=== PATIENT | male | born 1990 | race Caucasian/White ===

== ENCOUNTER 2018-06-10 21:00 | Emergency (ER) | payer OTHER ==
[2018-06-10 21:05] VITALS: RESP 18
[2018-06-10] MEDS ORDERED: SODIUM CHLORIDE 0.9% 1,000 ML IV STA (21:16)
--- NOTE | 2018-06-10 21:20 | ED ---
Nausea/Vomiting/Diarrhea HPI - General Source: patient, RN notes reviewed Mode of arrival: ambulatory Limitations: no limitations <Dave Cedillo - Last Filed: 06/11/18 01:11> <Yuli Dunham - Last Filed: 06/14/18 23:58> - General Chief complaint: Nausea/Vomiting/Diarrhea Stated complaint: Vomiting Time Seen by Provider: 06/10/18 21:06 - History of Present Illness Initial comments: 27 year male present emergency department to complaint of nausea vomiting. Patient states is at work states his outside outbreak smoking when he had 2 episodes of emesis. Patient states symptoms have resolved this time. He states he became very shaky after the emesis. Patient states that he has no abdominal pain no diarrhea denies any recent fevers or chills. No sick contacts. Symptoms. He does have a history of hypertension states he does not know the name of the medication though he states he took it today. (Dave Cedillo) - Related Data Home Medications Medication Instructions Recorded Confirmed Lisinopril [Zestril] 10 mg PO DAILY 06/10/18 06/10/18 Allergies Allergy/AdvReac Type Severity Reaction Status Date / Time No Known Allergies Allergy Verified 06/10/18 21:29 Review of Systems ROS Other: All systems not noted in ROS Statement are negative. <Dave Cedillo - Last Filed: 06/11/18 01:11> ROS Other: All systems not noted in ROS Statement are negative. <Yuli Dunham - Last Filed: 06/14/18 23:58> ROS Statement: Those systems with pertinent positive or pertinent negative responses have been documented in the HPI. Past Medical History Past Medical History: Hypertension History of Any Multi-Drug Resistant Organisms: None Reported Past Surgical History: Tonsillectomy Past Psychological History: No Psychological Hx Reported Smoking Status: Current every day smoker Past Alcohol Use History: Occasional Past Drug Use History: Marijuana <Dave Cedillo - Last Filed: 06/11/18 01:11> General Exam Limitations: no limitations General appearance: alert, in no apparent distress Head exam: Present: atraumatic, normocephalic, normal inspection Eye exam: Present: normal appearance, PERRL, EOMI. Absent: scleral icterus, conjunctival injection, periorbital swelling ENT exam: Present: normal exam, normal oropharynx, mucous membranes moist Neck exam: Present: normal inspection, full ROM. Absent: tenderness, meningismus, lymphadenopathy Respiratory exam: Present: normal lung sounds bilaterally. Absent: respiratory distress, wheezes, rales, rhonchi, stridor Cardiovascular Exam: Present: regular rate, normal rhythm, normal heart sounds. Absent: systolic murmur, diastolic murmur, rubs, gallop, clicks GI/Abdominal exam: Present: soft, normal bowel sounds. Absent: distended, tenderness, guarding, rebound, rigid Neurological exam: Present: alert, oriented X3, CN II-XII intact Skin exam: Present: warm, dry, intact, normal color. Absent: rash <Dave Cedillo - Last Filed: 06/11/18 01:11> Vital Signs 06/10/18 06/11/18 21:02 01:22 Temperature 98.2 F 98.6 F Pulse Rate 97 80 Respiratory 18 18 Rate Blood Pressure 197/112 175/112 O2 Sat by Pulse 100 98 Oximetry Medical Decision Making - Lab Data Result diagrams: 06/10/18 21:28 06/10/18 21:28 <Dave Cedillo - Last Filed: 06/11/18 01:11> - Lab Data Result diagrams: 06/10/18 21:28 06/10/18 21:28 <Yuli Dunham - Last Filed: 06/14/18 23:58> - Medical Decision Making 27-year-old male presented for nausea vomiting. Patient's found to have elevated LFTs. Patient did have ultrasound at that time which was negative for acute abnormality. I did question the patient I'll call intake. Patient states he has been told is had elevated liver functions in the past related to alcohol abuse. Patient will be discharged at this time with antiemetics. Return parameters were discussed. (Dave Cedillo) I was available for consultation in the emergency department. The history and physical exam were done by the midlevel provider. I was consulted for this patient's care. I reviewed the case with the midlevel provider and based on their presentation of the patient, I agree with the assessment, medical decision making and plan of care as documented. (Yuli Dunham) - Lab Data Lab Results 06/10/18 06/10/18 06/10/18 Range/Units 21:28 21:28 22:55 WBC 7.6 (3.8-10.6) k/uL RBC 4.98 (4.30-5.90) m/uL Hgb 16.8 (13.0-17.5) gm/dL Hct 50.0 (39.0-53.0) % MCV 100.3 H (80.0-100.0) fL MCH 33.7 (25.0-35.0) pg MCHC 33.6 (31.0-37.0) g/dL RDW 12.1 (11.5-15.5) % Plt Count 271 (150-450) k/uL Neutrophils % 72 % Lymphocytes % 19 % Monocytes % 5 % Eosinophils % 2 % Basophils % 0 % Neutrophils # 5.5 (1.3-7.7) k/uL Lymphocytes # 1.4 (1.0-4.8) k/uL Monocytes # 0.4 (0-1.0) k/uL Eosinophils # 0.2 (0-0.7) k/uL Basophils # 0.0 (0-0.2) k/uL Sodium 140 (137-145) mmol/L Potassium 4.0 (3.5-5.1) mmol/L Chloride 101 (98-107) mmol/L Carbon Dioxide 28 (22-30) mmol/L Anion Gap 11 mmol/L BUN 12 (9-20) mg/dL Creatinine 0.70 (0.66-1.25) mg/dL Est GFR (CKD-EPI)AfAm >90 (>60 ml/min/1.73 sqM) Est GFR (CKD-EPI)NonAf >90 (>60 ml/min/1.73 sqM) Glucose 104 H (74-99) mg/dL Calcium 9.9 (8.4-10.2) mg/dL Total Bilirubin 0.3 (0.2-1.3) mg/dL AST 120 H (17-59) U/L ALT 183 H (21-72) U/L Alkaline Phosphatase 75 (38-126) U/L Total Protein 8.3 H (6.3-8.2) g/dL Albumin 5.0 (3.5-5.0) g/dL Lipase 106 (23-300) U/L Urine Color Light Yellow Urine Appearance Clear (Clear) Urine pH 8.0 (5.0-8.0) Ur Specific [place] 1.011 (1.001-1.035) Urine Protein Negative (Negative) Urine Glucose (UA) 1+ H (Negative) Urine Ketones Negative (Negative) Urine Blood Negative (Negative) Urine Nitrite Negative (Negative) Urine Bilirubin Negative (Negative) Urine Urobilinogen <2.0 (<2.0) mg/dL Ur Leukocyte Esterase Negative (Negative) Disposition Is patient prescribed a controlled substance at d/c from ED?: No Time of Disposition: 01:13 <Dave Cedillo - Last Filed: 06/11/18 01:11> <Yuli Dunham - Last Filed: 06/14/18 23:58> Clinical Impression: Nausea & vomiting, Alcoholic hepatitis Disposition: HOME SELF-CARE Condition: Stable Instructions: Acute Nausea and Vomiting (ED) Additional Instructions: Please return to the Emergency Department if symptoms worsen or any other concerns. Referrals: None,Stated [Primary Care Provider] - 1-2 days
[2018-06-10 21:52] LABS: Basophils % (A) 0 %; Eosinophils # (A) 0.2 k/uL (0-0.7); Eosinophils % (A) 2 %; HGB 16.8 gm/dL (13.0-17.5); Lymphocytes # (A) 1.4 k/uL (1.0-4.8); Lymphocytes % (A) 19 %; MCH 33.7 pg (25.0-35.0); MCHC 33.6 g/dL (31.0-37.0); MCV 100.3 fL (80.0-100.0); Mean Platelet Volume 6.7; Monocytes # (A) 0.4 k/uL (0-1.0); Monocytes % (A) 5 %; Neutrophils # (A) 5.5 k/uL (1.3-7.7); Neutrophils % (A) 72 %; Platelet Count 271 k/uL (150-450); RBC 4.98 m/uL (4.30-5.90); RDW 12.1 % (11.5-15.5); WBC 7.6 k/uL (3.8-10.6)
[2018-06-10 22:09] LABS: ALT 183 U/L (21-72); AST 120 U/L (17-59); Alkaline Phosphatase 75 U/L (38-126); Anion Gap 11 mmol/L; Blood Urea Nitrogen 12 mg/dL (9-20); Calcium 9.9 mg/dL (8.4-10.2); Carbon Dioxide 28 mmol/L (22-30); Chloride 101 mmol/L (98-107); Glucose 104 mg/dL (74-99); Lipase 106 U/L (23-300); Sodium 140 mmol/L (137-145); Total Bilirubin 0.3 mg/dL (0.2-1.3); Total Protein 8.3 g/dL (6.3-8.2)
[2018-06-10 23:19] LABS: Appearance,Urine Clear (Clear); Bilirubin,Urine Negative (Negative); Blood,Urine Negative (Negative); Color,Urine Light Yellow; Glucose,Urine (UA) 1+ (Negative); Ketones,Urine Negative (Negative); Leukocyte Esterase,Urine Negative (Negative); Nitrite,Urine Negative (Negative); Protein,Urine Negative (Negative); Specific Gravity,Urine 1.011 (1.001-1.035); Urobilinogen,Urine <2.0 mg/dL (<2.0)
--- NOTE | 2018-06-11 01:07 | US ---
EXAMINATION TYPE: US gallbladder DATE OF EXAM: 06/11/2018 COMPARISON: CT 2014 CLINICAL HISTORY: Pain. N/V and dizziness x 1 day EXAM MEASUREMENTS: Liver Length: 16.8 cm Gallbladder Wall: 0.2 cm CBD: 0.4 cm Right Kidney: 9.6 x 4.5 x 4.8 cm Pancreas: visualized portions wnl, limited by overlying midline bowel gas Liver: mildly heterogeneous, increased echogenicity Gallbladder: wnl Evidence for sonographic Johnston's sign: no CBD: wnl Right Kidney: 0.5cm echogenic focus inferior pole IMPRESSION: Negative exam. No gallstones or dilated ducts. No free fluid. Possible nonobstructing vargas culus lower pole of the right kidney.
[2018-06-11] MEDS ORDERED: ONDANSETRON 4 MG ODT STARTER PACK 2 TAB BTL PO STA (01:13)
[2018-06-11 01:25] VITALS: PULSE 80; TEMP 98.6
[2018-06-11 01:26] VITALS: BP 175/112
== END 2018-06-11 01:50 | disposition home or self-care (01) ==
LOC: EC 21:00
DX: K70.10 Alcoholic hepatitis without ascites (principal); F10.10 Alcohol abuse, uncomplicated; I10 Essential (primary) hypertension; F17.200 Nicotine dependence, unspecified, uncomplicated; Z79.899 Other long term (current) drug therapy
CPT/HCPCS: 36415; 80053; 83690; 85025; 81003; 76705; 99284; 96360; S0119

== ENCOUNTER 2018-08-27 23:10 | Emergency (ER) | payer OTHER ==
[2018-08-27 23:25] VITALS: RESP 18
[2018-08-28 00:12] LABS: Basophils % (A) 0 %; Eosinophils # (A) 0.1 k/uL (0-0.7); Eosinophils % (A) 1 %; HCT 49.4 % (39.0-53.0); HGB 17.1 gm/dL (13.0-17.5); Lymphocytes # (A) 2.2 k/uL (1.0-4.8); Lymphocytes % (A) 23 %; MCH 34.8 pg (25.0-35.0); MCHC 34.6 g/dL (31.0-37.0); MCV 100.7 fL (80.0-100.0); Monocytes # (A) 0.7 k/uL (0-1.0); Monocytes % (A) 8 %; Neutrophils # (A) 6.3 k/uL (1.3-7.7); Neutrophils % (A) 66 %; Platelet Count 331 k/uL (150-450); RBC 4.91 m/uL (4.30-5.90); RDW 13.1 % (11.5-15.5); WBC 9.5 k/uL (3.8-10.6)
[2018-08-28 00:20] LABS: INR 1.4 (<1.2); Prothrombin Time 14.5 sec (9.0-12.0)
[2018-08-28 00:23] LABS: ALT 135 U/L (21-72); AST 184 U/L (17-59); Albumin 4.6 g/dL (3.5-5.0); Alkaline Phosphatase 126 U/L (38-126); Amylase 49 U/L (30-110); Anion Gap 12 mmol/L; Blood Urea Nitrogen 14 mg/dL (9-20); Calcium 9.8 mg/dL (8.4-10.2); Carbon Dioxide 30 mmol/L (22-30); Chloride 95 mmol/L (98-107); Glucose 98 mg/dL (74-99); Lipase 120 U/L (23-300); Potassium 3.8 mmol/L (3.5-5.1); Sodium 137 mmol/L (137-145); Total Bilirubin 1.4 mg/dL (0.2-1.3); Total Protein 7.8 g/dL (6.3-8.2)
[2018-08-28] MEDS ORDERED: LORazepam 2 MG/ML INJ IV STA (00:40)
[2018-08-28] MEDS ORDERED: chlordiazePOXIDE 25 MG CAP PO STA (00:41)
--- NOTE | 2018-08-28 00:55 | ED ---
GI Bleed HPI - General Chief complaint: GI Bleed Stated complaint: Vomiting blood Time Seen by Provider: 08/27/18 23:57 Source: patient Mode of arrival: ambulatory Limitations: no limitations - History of Present Illness Initial comments: This patient is 27-year-old man who presents to be evaluated for blood tinged vomiting. The patient states that he drinks a fair amount of alcohol and believes that he had some vomiting related to that. She states that he was at work about 3-4 hours ago. He admits to vomiting with a trace of blood. This was followed a little later by vomiting with a number small blood clots. Patient is denying abdomen or chest pain no dyspnea or diaphoresis. In addition, the patient states that he probably should be taking something for his blood pressure. He states that his doctor was going to change medications but dakotah sanchez did not get any prescription to inform yet. He denies symptoms related to this. MD complaint: coffee ground emesis Onset/Timin -: hour(s) Quality: painless Consistency: constant Improves with: none Worsens with: none Context: alcohol abuse - Related Data Home Medications Medication Instructions Recorded Confirmed Lisinopril [Zestril] 10 mg PO DAILY 06/10/18 06/10/18 Previous Rx's Medication Instructions Recorded Famotidine [Pepcid] 20 mg PO BID #14 tablet 08/28/18 chlordiazePOXIDE HCl [Librium] 25 mg PO TID 3 Days #9 capsule 08/28/18 Allergies Allergy/AdvReac Type Severity Reaction Status Date / Time No Known Allergies Allergy Verified 08/27/18 23:25 Review of Systems ROS Statement: Those systems with pertinent positive or pertinent negative responses have been documented in the HPI. ROS Other: All systems not noted in ROS Statement are negative. Constitutional: Denies: fever, chills, weakness Respiratory: Denies: cough, dyspnea, wheezes Cardiovascular: Denies: chest pain, palpitations, edema, syncope Gastrointestinal: Reports: nausea, vomiting, hematemesis. Denies: abdominal pain, diarrhea, melena, hematochezia Genitourinary: Denies: dysuria, hematuria Musculoskeletal: Denies: back pain Skin: Denies: rash Neurological: Denies: headache, weakness, numbness Past Medical History Past Medical History: Hypertension History of Any Multi-Drug Resistant Organisms: None Reported Past Surgical History: Tonsillectomy Past Psychological History: No Psychological Hx Reported Smoking Status: Current every day smoker Past Alcohol Use History: Occasional Past Drug Use History: Marijuana General Exam Limitations: no limitations General appearance: alert, in no apparent distress Head exam: Present: atraumatic, normocephalic ENT exam: Present: mucous membranes dry Respiratory exam: Present: normal lung sounds bilaterally. Absent: respiratory distress, wheezes, rales, rhonchi, stridor Cardiovascular Exam: Present: regular rate, normal rhythm, normal heart sounds. Absent: systolic murmur, diastolic murmur, rubs, gallop GI/Abdominal exam: Present: soft. Absent: distended, tenderness, guarding, rebound, rigid, mass Extremities exam: Present: normal inspection, normal capillary refill. Absent: pedal edema, calf tenderness Back exam: Present: normal inspection. Absent: CVA tenderness (R), CVA tenderness (L) Neurological exam: Present: alert Skin exam: Present: warm, dry, intact, normal color. Absent: rash Course Vital Signs 08/27/18 23:22 Temperature 98.8 F Pulse Rate 99 Respiratory 18 Rate Blood Pressure 181/121 O2 Sat by Pulse 99 Oximetry Medical Decision Making - Lab Data Result diagrams: 08/27/18 00:03 08/27/18 00:03 Lab Results 08/27/18 08/27/18 08/27/18 Range/Units 00:03 00:03 00:03 WBC 9.5 (3.8-10.6) k/uL RBC 4.91 (4.30-5.90) m/uL Hgb 17.1 (13.0-17.5) gm/dL Hct 49.4 (39.0-53.0) % MCV 100.7 H (80.0-100.0) fL MCH 34.8 (25.0-35.0) pg MCHC 34.6 (31.0-37.0) g/dL RDW 13.1 (11.5-15.5) % Plt Count 331 (150-450) k/uL Neutrophils % 66 % Lymphocytes % 23 % Monocytes % 8 % Eosinophils % 1 % Basophils % 0 % Neutrophils # 6.3 (1.3-7.7) k/uL Lymphocytes # 2.2 (1.0-4.8) k/uL Monocytes # 0.7 (0-1.0) k/uL Eosinophils # 0.1 (0-0.7) k/uL Basophils # 0.0 (0-0.2) k/uL PT (9.0-12.0) sec INR (<1.2) APTT (22.0-30.0) sec Sodium 137 (137-145) mmol/L Potassium 3.8 (3.5-5.1) mmol/L Chloride 95 L (98-107) mmol/L Carbon Dioxide 30 (22-30) mmol/L Anion Gap 12 mmol/L BUN 14 (9-20) mg/dL Creatinine 0.84 (0.66-1.25) mg/dL Est GFR (CKD-EPI)AfAm >90 (>60 ml/min/1.73 sqM) Est GFR (CKD-EPI)NonAf >90 (>60 ml/min/1.73 sqM) Glucose 98 (74-99) mg/dL Plasma Lactic Acid Raul 1.4 (0.7-2.0) mmol/L Calcium 9.8 (8.4-10.2) mg/dL Total Bilirubin 1.4 H (0.2-1.3) mg/dL AST 184 H (17-59) U/L ALT 135 H (21-72) U/L Alkaline Phosphatase 126 (38-126) U/L Troponin I (0.000-0.034) ng/mL Total Protein 7.8 (6.3-8.2) g/dL Albumin 4.6 (3.5-5.0) g/dL Amylase 49 (30-110) U/L Lipase 120 (23-300) U/L 08/27/18 08/27/18 Range/Units 00:03 00:03 WBC (3.8-10.6) k/uL RBC (4.30-5.90) m/uL Hgb (13.0-17.5) gm/dL Hct (39.0-53.0) % MCV (80.0-100.0) fL MCH (25.0-35.0) pg MCHC (31.0-37.0) g/dL RDW (11.5-15.5) % Plt Count (150-450) k/uL Neutrophils % % Lymphocytes % % Monocytes % % Eosinophils % % Basophils % % Neutrophils # (1.3-7.7) k/uL Lymphocytes # (1.0-4.8) k/uL Monocytes # (0-1.0) k/uL Eosinophils # (0-0.7) k/uL Basophils # (0-0.2) k/uL PT 14.5 H (9.0-12.0) sec INR 1.4 H (<1.2) APTT 30.0 (22.0-30.0) sec Sodium (137-145) mmol/L Potassium (3.5-5.1) mmol/L Chloride (98-107) mmol/L Carbon Dioxide (22-30) mmol/L Anion Gap mmol/L BUN (9-20) mg/dL Creatinine (0.66-1.25) mg/dL Est GFR (CKD-EPI)AfAm (>60 ml/min/1.73 sqM) Est GFR (CKD-EPI)NonAf (>60 ml/min/1.73 sqM) Glucose (74-99) mg/dL Plasma Lactic Acid Raul (0.7-2.0) mmol/L Calcium (8.4-10.2) mg/dL Total Bilirubin (0.2-1.3) mg/dL AST (17-59) U/L ALT (21-72) U/L Alkaline Phosphatase (38-126) U/L Troponin I <0.012 (0.000-0.034) ng/mL Total Protein (6.3-8.2) g/dL Albumin (3.5-5.0) g/dL Amylase (30-110) U/L Lipase (23-300) U/L Disposition Clinical Impression: Gastritis Disposition: HOME SELF-CARE Condition: Fair Instructions (If sedation given, give patient instructions): Gastrointestinal Bleeding (ED) Prescriptions: chlordiazePOXIDE HCl [Librium] 25 mg PO TID 3 Days #9 capsule Famotidine [Pepcid] 20 mg PO BID #14 tablet Is patient prescribed a controlled substance at d/c from ED?: No Referrals: Carlos Silva MD [Primary Care Provider] - 1-2 days
[2018-08-28] MEDS ORDERED: SODIUM CHLORIDE 0.9% 1,000 ML IV ONE (01:06)
[2018-08-28] MEDS: SODIUM CHLORIDE 0.9% 1,000 ML IV ONE ×2 (01:17→01:18)
[2018-08-28 01:59] VITALS: BP 191/118; PULSE 85
[2018-08-28] MEDS ORDERED: LORazepam 1 MG TAB PO STA (02:02)
[2018-08-28 02:15] VITALS: TEMP 98.3
== END 2018-08-28 02:12 | disposition home or self-care (01) ==
LOC: EC 23:10
DX: K29.70 Gastritis, unspecified, without bleeding (principal); I10 Essential (primary) hypertension; F17.200 Nicotine dependence, unspecified, uncomplicated; Z79.899 Other long term (current) drug therapy
CPT/HCPCS: 36415; 80053; 82150; 83605; 83690; 84484; 85025; 85610; 85730; 96360; 99284

== ENCOUNTER 2018-10-12 14:42 | Inpatient (IN) | payer OTHER ==
[2018-10-12] MEDS ORDERED: SODIUM CHLORIDE 0.9% 2,000 ML IV STA (14:57)
[2018-10-12] MEDS ORDERED: ONDANSETRON 4 MG/2 ML VIAL IVP STA (14:57)
[2018-10-12] MEDS ORDERED: FAMOTIDINE 20 MG/2 ML VIAL IV STA (14:58)
--- NOTE | 2018-10-12 15:11 | ED ---
Nausea/Vomiting/Diarrhea HPI - General Chief complaint: Nausea/Vomiting/Diarrhea Stated complaint: Vomiting Time Seen by Provider: 10/12/18 14:55 Source: patient, RN notes reviewed Mode of arrival: ambulatory Limitations: no limitations - History of Present Illness Initial comments: 28-year-old male presents emergency Department with chief complaint of nausea vomiting over the last 2 days. Patient states she's had his issues in the past and has been diagnosed with early ulcers. Patient does not take any current and antacids. Patient denies any fevers or chills. Denies any dysuria hematuria diarrhea constipation no melena or hematochezia. Patient states that he that he tasted blood states that a come emergency department. - Related Data Home Medications Medication Instructions Recorded Confirmed Lisinopril [Zestril] 10 mg PO DAILY 06/10/18 10/12/18 Allergies Allergy/AdvReac Type Severity Reaction Status Date / Time No Known Allergies Allergy Verified 10/12/18 14:58 Review of Systems ROS Statement: Those systems with pertinent positive or pertinent negative responses have been documented in the HPI. ROS Other: All systems not noted in ROS Statement are negative. Past Medical History Past Medical History: No Reported History, Hypertension History of Any Multi-Drug Resistant Organisms: None Reported Past Surgical History: Tonsillectomy Past Psychological History: No Psychological Hx Reported Smoking Status: Current every day smoker Past Alcohol Use History: Occasional Past Drug Use History: Marijuana General Exam Limitations: no limitations General appearance: alert, in no apparent distress Head exam: Present: atraumatic, normocephalic, normal inspection Eye exam: Present: normal appearance, PERRL, EOMI. Absent: scleral icterus, conjunctival injection, periorbital swelling ENT exam: Present: normal exam, mucous membranes moist Neck exam: Present: normal inspection, full ROM. Absent: tenderness, meningismus, lymphadenopathy Respiratory exam: Present: normal lung sounds bilaterally. Absent: respiratory distress, wheezes, rales, rhonchi, stridor Cardiovascular Exam: Present: regular rate, normal rhythm, normal heart sounds. Absent: systolic murmur, diastolic murmur, rubs, gallop, clicks GI/Abdominal exam: Present: soft, normal bowel sounds. Absent: distended, tenderness, guarding, rebound, rigid Back exam: Absent: CVA tenderness (R), CVA tenderness (L) Skin exam: Present: warm, dry, intact, normal color. Absent: rash Course Vital Signs 10/12/18 14:50 Temperature 98.5 F Pulse Rate 99 Respiratory 20 Rate Blood Pressure 159/99 O2 Sat by Pulse 99 Oximetry Medical Decision Making - Medical Decision Making 28-year-old male presents emergency from for nausea vomiting. Patient's found to have severe hepatitis most likely related to alcohol intake. Patient does have some mild withdrawal symptoms at this time. Patient will be admitted for alcohol hepatitis, possible pending DTs. Patient was started on Protonix, banana bag. Patient did have ultrasound of his abdomen. - Lab Data Result diagrams: 10/12/18 15:13 10/12/18 15:13 Lab Results 10/12/18 10/12/18 10/12/18 Range/Units 15:13 15:13 15:13 WBC 11.3 H (3.8-10.6) k/uL RBC 4.62 (4.30-5.90) m/uL Hgb 16.6 (13.0-17.5) gm/dL Hct 49.5 (39.0-53.0) % MCV 107.0 H D (80.0-100.0) fL MCH 36.0 H (25.0-35.0) pg MCHC 33.6 (31.0-37.0) g/dL RDW 13.5 (11.5-15.5) % Plt Count 346 (150-450) k/uL Neutrophils % 72 % Lymphocytes % 21 % Monocytes % 4 % Eosinophils % 1 % Basophils % 0 % Neutrophils # 8.1 H (1.3-7.7) k/uL Lymphocytes # 2.3 (1.0-4.8) k/uL Monocytes # 0.5 (0-1.0) k/uL Eosinophils # 0.1 (0-0.7) k/uL Basophils # 0.0 (0-0.2) k/uL Macrocytosis Moderate Sodium 133 L (137-145) mmol/L Potassium 3.3 L (3.5-5.1) mmol/L Chloride 89 L (98-107) mmol/L Carbon Dioxide 32 H (22-30) mmol/L Anion Gap 12 mmol/L BUN 15 (9-20) mg/dL Creatinine 0.90 (0.66-1.25) mg/dL Est GFR (CKD-EPI)AfAm >90 (>60 ml/min/1.73 sqM) Est GFR (CKD-EPI)NonAf >90 (>60 ml/min/1.73 sqM) Glucose 115 H (74-99) mg/dL Calcium 9.7 (8.4-10.2) mg/dL Magnesium (1.6-2.3) mg/dL Total Bilirubin 4.5 H (0.2-1.3) mg/dL AST 764 H (17-59) U/L ALT 462 H (21-72) U/L Alkaline Phosphatase 249 H (38-126) U/L Total Protein 7.9 (6.3-8.2) g/dL Albumin 4.3 (3.5-5.0) g/dL Amylase 80 (30-110) U/L Lipase 123 (23-300) U/L Urine Color Dark Brown Urine Appearance Cloudy (Clear) Urine pH 6.0 (5.0-8.0) Ur Specific [place] 1.030 (1.001-1.035) Urine Protein 1+ H (Negative) Urine Glucose (UA) Negative (Negative) Urine Ketones Negative (Negative) Urine Blood Negative (Negative) Urine Nitrite Negative (Negative) Urine Bilirubin 1+ H (Negative) Urine Urobilinogen 3.0 (<2.0) mg/dL Ur Leukocyte Esterase Negative (Negative) Urine RBC 10 H (0-5) /hpf Urine WBC 4 (0-5) /hpf Hyaline Casts 80 H (0-2) /lpf Urine Mucus Many H (None) /hpf Urine Opiates Screen (NotDetected) Ur Oxycodone Screen (NotDetected) Urine Methadone Screen (NotDetected) Ur Propoxyphene Screen (NotDetected) Acetaminophen ug/mL Ur Barbiturates Screen (NotDetected) U Tricyclic Antidepress (NotDetected) Ur Phencyclidine Scrn (NotDetected) Ur Amphetamines Screen (NotDetected) U Methamphetamines Scrn (NotDetected) U Benzodiazepines Scrn (NotDetected) Urine Cocaine Screen (NotDetected) U Marijuana (THC) Screen (NotDetected) 05/02/19 05/02/19 05/02/19 Range/Units 15:13 15:13 16:20 WBC (3.8-10.6) k/uL RBC (4.30-5.90) m/uL Hgb (13.0-17.5) gm/dL Hct (39.0-53.0) % MCV (80.0-100.0) fL MCH (25.0-35.0) pg MCHC (31.0-37.0) g/dL RDW (11.5-15.5) % Plt Count (150-450) k/uL Neutrophils % % Lymphocytes % % Monocytes % % Eosinophils % % Basophils % % Neutrophils # (1.3-7.7) k/uL Lymphocytes # (1.0-4.8) k/uL Monocytes # (0-1.0) k/uL Eosinophils # (0-0.7) k/uL Basophils # (0-0.2) k/uL Macrocytosis Sodium (137-145) mmol/L Potassium (3.5-5.1) mmol/L Chloride (98-107) mmol/L Carbon Dioxide (22-30) mmol/L Anion Gap mmol/L BUN (9-20) mg/dL Creatinine (0.66-1.25) mg/dL Est GFR (CKD-EPI)AfAm (>60 ml/min/1.73 sqM) Est GFR (CKD-EPI)NonAf (>60 ml/min/1.73 sqM) Glucose (74-99) mg/dL Calcium (8.4-10.2) mg/dL Magnesium 1.6 (1.6-2.3) mg/dL Total Bilirubin (0.2-1.3) mg/dL AST (17-59) U/L ALT (21-72) U/L Alkaline Phosphatase (38-126) U/L Total Protein (6.3-8.2) g/dL Albumin (3.5-5.0) g/dL Amylase (30-110) U/L Lipase (23-300) U/L Urine Color Urine Appearance (Clear) Urine pH (5.0-8.0) Ur Specific [place] (1.001-1.035) Urine Protein (Negative) Urine Glucose (UA) (Negative) Urine Ketones (Negative) Urine Blood (Negative) Urine Nitrite (Negative) Urine Bilirubin (Negative) Urine Urobilinogen (<2.0) mg/dL Ur Leukocyte Esterase (Negative) Urine RBC (0-5) /hpf Urine WBC (0-5) /hpf Hyaline Casts (0-2) /lpf Urine Mucus (None) /hpf Urine Opiates Screen Not Detected (NotDetected) Ur Oxycodone Screen Not Detected (NotDetected) Urine Methadone Screen Not Detected (NotDetected) Ur Propoxyphene Screen Not Detected (NotDetected) Acetaminophen <10.0 ug/mL Ur Barbiturates Screen Not Detected (NotDetected) U Tricyclic Antidepress Not Detected (NotDetected) Ur Phencyclidine Scrn Not Detected (NotDetected) Ur Amphetamines Screen Not Detected (NotDetected) U Methamphetamines Scrn Not Detected (NotDetected) U Benzodiazepines Scrn Detected H (NotDetected) Urine Cocaine Screen Not Detected (NotDetected) U Marijuana (THC) Screen Detected H (NotDetected) Disposition Clinical Impression: Acute hepatitis, Alcohol abuse, Hyperbilirubinemia, Dehydration, Nausea & vomiting Disposition: ADMITTED IP TO THIS [facility] Condition: Fair Referrals: Carlos Silva MD [Primary Care Provider] - 1-2 days
[2018-10-12 15:33] LABS: ALT 462 U/L (21-72); Albumin 4.3 g/dL (3.5-5.0); Alkaline Phosphatase 249 U/L (38-126); Amylase 80 U/L (30-110); Anion Gap 12 mmol/L; Blood Urea Nitrogen 15 mg/dL (9-20); Calcium 9.7 mg/dL (8.4-10.2); Carbon Dioxide 32 mmol/L (22-30); Chloride 89 mmol/L (98-107); Glucose 115 mg/dL (74-99); Lipase 123 U/L (23-300); Potassium 3.3 mmol/L (3.5-5.1); Sodium 133 mmol/L (137-145); Total Bilirubin 4.5 mg/dL (0.2-1.3); Total Protein 7.9 g/dL (6.3-8.2)
[2018-10-12 15:35] LABS: Appearance,Urine Cloudy (Clear); Basophils % (A) 0 %; Bilirubin,Urine 1+ (Negative); Blood,Urine Negative (Negative); Color,Urine Dark Brown; Eosinophils # (A) 0.1 k/uL (0-0.7); Eosinophils % (A) 1 %; Glucose,Urine (UA) Negative (Negative); HCT 49.5 % (39.0-53.0); HGB 16.6 gm/dL (13.0-17.5); Hyaline Casts,Urine 80 /lpf (0-2); Ketones,Urine Negative (Negative); Leukocyte Esterase,Urine Negative (Negative); Lymphocytes # (A) 2.3 k/uL (1.0-4.8); Lymphocytes % (A) 21 %; MCHC 33.6 g/dL (31.0-37.0); Macrocytosis Moderate; Monocytes # (A) 0.5 k/uL (0-1.0); Monocytes % (A) 4 %; Mucus,Urine Many /hpf; Neutrophils # (A) 8.1 k/uL (1.3-7.7); Neutrophils % (A) 72 %; Nitrite,Urine Negative (Negative); Platelet Count 346 k/uL (150-450); Protein,Urine 1+ (Negative); RBC 4.62 m/uL (4.30-5.90); RBC,Urine 10 /hpf (0-5); RDW 13.5 % (11.5-15.5); WBC 11.3 k/uL (3.8-10.6); WBC,Urine 4 /hpf (0-5)
[2018-10-12 15:42] LABS: AST 764 U/L (17-59)
[2018-10-12 16:22] LABS: Amphetamine Screen,Urine Not Detected (NotDetected); Barbiturate Screen,Urine Not Detected (NotDetected); Benzodiazepines Screen,Urine Detected (NotDetected); Cocaine Screen,Urine Not Detected (NotDetected); Methadone Screen, Urine Not Detected (NotDetected); Opiate Screen,Urine Not Detected (NotDetected); Oxycodone Screen, Urine Not Detected (NotDetected); Phencyclidine Screen,Urine Not Detected (NotDetected); Tricyclic Antidepressant,Urine Not Detected (NotDetected); Urn Cannabinoid Scrn Detected (NotDetected)
[2018-10-12] MEDS ORDERED: LORazepam 2 MG/ML INJ IV PRN ×3 (16:58)
[2018-10-12] MEDS ORDERED: SODIUM CHLORIDE 0.9% 1,000 ML with MVI, ADULT NO.4 WITH VIT K 10 ML, THIAMINE 100 MG, F... IV ONE ×4 (16:58)
[2018-10-12] MEDS ORDERED: PANTOPRAZOLE 40 MG/10 ML VIAL IVP STA (16:59)
[2018-10-12 17:01] LABS: Hepatitis A AB IgM Index 0.02; Hepatitis A Antibody IgM NEGATIVE
[2018-10-12] MEDS ORDERED: ONDANSETRON 4 MG/2 ML VIAL IVP PRN (17:01)
--- NOTE | 2018-10-12 17:03 | US ---
EXAMINATION TYPE: US abdomen limited DATE OF EXAM: 10/12/2018 COMPARISON: 06/11/2018 CLINICAL HISTORY: Pain. Vomiting for 2 days EXAM MEASUREMENTS: Liver Length: 19.8 cm Gallbladder Wall: 0.3 cm CBD: 0.4 cm Right Kidney: 11.2 x 3.2 x 5.5 cm Pancreas: Tail obscured by overlying bowel gas Liver: enlarged, heterogeneous, attenuating Gallbladder: no evidence of stones Evidence for sonographic Johnston's sign: no CBD: appears wnl Right Kidney: no evidence of hydronephrosis IMPRESSION: No gallstones or dilated ducts. Hypoechoic liver consistent with fatty infiltration. No s ignificant change compared to old exam.
[2018-10-12] MEDS: THIAMINE 100 MG TAB PO SCH ×2 (17:35→17:37)
[2018-10-12] MEDS ORDERED: THIAMINE 100 MG/ML 2 ML VIAL IM STA (17:38)
--- NOTE | 2018-10-12 17:52 | P.HPIM ---
History of Present Illness H&P Date: 10/12/18 Chief Complaint: nausea vomiting 28-year-old male with PMH of hypertension and alcohol abuse presents the ED for nausea and vomiting. Patient states he has been drinking heavily on a daily basis over the last couple of years. He admits to drinking 1 pint of hard liquor daily. His last drink was 2 days ago. Patient reports multiple episodes of nonbilious nonbloody nausea and vomiting. He reports that today he had 20 episodes of vomiting. Patient reports he can taste blood in his vomitus denies physically seeing any blood or redness. Patient reports shakiness when he does not drink. He denies any seizures. Patient denies any headache, lower extremity edema, fever, chills, cough, chest pain, shortness breath, palpitations, changes in urination or bowel habits. Patient reports a decreased appetite over 2 days. He denies any dizziness, numbness/weakness/tingling of the extremities. Patient is admitted for dehydration, inability to tolerate by mouth and for impending alcohol withdrawal. Review of Systems Pertinent positives and negatives as discussed in HPI, a complete review of systems was performed and all other systems are negative. Past Medical History Past Medical History: No Reported History, Hypertension History of Any Multi-Drug Resistant Organisms: None Reported Past Surgical History: Tonsillectomy Past Psychological History: No Psychological Hx Reported Smoking Status: Current every day smoker Past Alcohol Use History: Occasional Past Drug Use History: Marijuana Medications and Allergies Home Medications Medication Instructions Recorded Confirmed Type Lisinopril [Zestril] 10 mg PO DAILY 06/10/18 10/12/18 History Allergies Allergy/AdvReac Type Severity Reaction Status Date / Time No Known Allergies Allergy Verified 10/12/18 14:58 Physical Exam Vitals: Vital Signs Temp Pulse Resp BP Pulse Ox 10/12/18 14:50 98.5 F 99 20 159/99 99 Intake and Output 10/12/18 10/12/18 10/12/18 06:59 14:59 22:59 Other: Weight 68.039 kg General: [non toxic], [no distress], [appears at stated age] Derm: [warm], [dry] Head: [atraumatic], [normocephalic], [symmetric] Eyes: [EOMI], [no lid lag], [anicteric sclera] Mouth: [no lip lesion], [mucus membranes moist] Cardiovascular: [S1S2 reg], [no murmur], [positive DP pulse bilateral] Lungs: [CTA bilateral], [no rhonchi, no rales] , [no accessory muscle use] Abdominal: [soft], [ nontender to palpation], [no guarding], [no appreciable organomegaly] Ext: [no gross muscle atrophy], [no edema], [no contractures] Neuro: [no focal neuro deficits] Psych: [Alert], [oriented], [appropriate affect] Results CBC & Chem 7: 10/12/18 15:13 10/12/18 15:13 Labs: Abnormal Lab Results - Last 24 Hours (Table) 10/12/18 10/12/18 10/12/18 Range/Units 15:13 15:13 15:13 WBC 11.3 H (3.8-10.6) k/uL MCV 107.0 H D (80.0-100.0) fL MCH 36.0 H (25.0-35.0) pg Neutrophils # 8.1 H (1.3-7.7) k/uL Sodium 133 L (137-145) mmol/L Potassium 3.3 L (3.5-5.1) mmol/L Chloride 89 L (98-107) mmol/L Carbon Dioxide 32 H (22-30) mmol/L Glucose 115 H (74-99) mg/dL Total Bilirubin 4.5 H (0.2-1.3) mg/dL AST 764 H (17-59) U/L ALT 462 H (21-72) U/L Alkaline Phosphatase 249 H (38-126) U/L Urine Protein 1+ H (Negative) Urine Bilirubin 1+ H (Negative) Urine RBC 10 H (0-5) /hpf Hyaline Casts 80 H (0-2) /lpf Urine Mucus Many H (None) /hpf U Benzodiazepines Scrn (NotDetected) U Marijuana (THC) Screen (NotDetected) 10/12/18 Range/Units 15:13 WBC (3.8-10.6) k/uL MCV (80.0-100.0) fL MCH (25.0-35.0) pg Neutrophils # (1.3-7.7) k/uL Sodium (137-145) mmol/L Potassium (3.5-5.1) mmol/L Chloride (98-107) mmol/L Carbon Dioxide (22-30) mmol/L Glucose (74-99) mg/dL Total Bilirubin (0.2-1.3) mg/dL AST (17-59) U/L ALT (21-72) U/L Alkaline Phosphatase (38-126) U/L Urine Protein (Negative) Urine Bilirubin (Negative) Urine RBC (0-5) /hpf Hyaline Casts (0-2) /lpf Urine Mucus (None) /hpf U Benzodiazepines Scrn Detected H (NotDetected) U Marijuana (THC) Screen Detected H (NotDetected) Thrombosis Risk Factor Assmnt - Choose All That Apply Any of the Below Risk Factors Present?: No Other Risk Factors: No Other congenital or acquired thrombophilia - If yes, enter type in comment: No Thrombosis Risk Factor Assessment Level: Very Low Risk Assessment and Plan Assessment: Assessment and Plan 1. Alcohol abuse, pending withdrawal 2. Nausea vomiting 3. Transaminitis 4. Hypochloremic metabolic alkalosis 5. Hyponatremia and hypokalemia 6. Leukocytosis and macrocytosis Patient reports drinking daily, 1 pint of hard liquor over the past 2 years. L ast drink was 2 days ago. Plan: [facility] protocol. Start thiamine, folic acid and multivitamin. Ativan as needed for withdrawal symptoms. Telemetry monitoring. Likely secondary to gastritis or ulcer disease. Plan: Clear liquid diet. Protonix 40 mg IV daily. Zofran as needed for nausea and vomiting. Follow gastroenterology consult. Total bilirubin 4.5, AST 764, LT 462, alkaline phosphatase of 249. Likely secondary to alcoholic hepatitis. Plan: Daily CMP. Follow gastroenterology consult. Follow abdominal ultrasound. Follow hepatitis panel. Chloride 89, bicarbonate of 32. Likely secondary to vomiting. Plan: Continue normal saline at 100 mL/h. Daily BMP. Leukocytosis of 11.3 with macrocytosis of 107. Likely secondary to alcohol abuse. Patient is afebrile, no signs of infection. Plan: Follow B12 and folate. Daily CBC.
[2018-10-12] MEDS ORDERED: ENALAPRILAT 1.25 MG/ML 1 ML VIAL IVP STA (18:04)
[2018-10-12 20:54] VITALS: BMI 20.3
[2018-10-12] MEDS ORDERED: ACETAMINOPHEN TAB 325 MG TAB PO PRN (21:39)
[2018-10-12] MEDS ORDERED: traMADol 50 MG TAB PO PRN (21:39)
[2018-10-12] MEDS ORDERED: NALOXONE 0.4 MG/ML 1 ML VIAL IV PRN (21:39)
[2018-10-12 23:48] LABS: Hepatitis B Core IgM Non-Reactive (Non-Reactive)
[2018-10-13] MEDS: NICOTINE 21MG/24HR PATCH TRANSDERM SCH ×2 (00:46→07:04)
[2018-10-13] MEDS: THIAMINE 100 MG TAB PO SCH (07:04)
[2018-10-13 08:26] LABS: Basophils % (A) 0 %; Eosinophils % (A) 1 %; HCT 43.1 % (39.0-53.0); HGB 14.5 gm/dL (13.0-17.5); Lymphocytes # (A) 1.8 k/uL (1.0-4.8); Lymphocytes % (A) 25 %; MCH 36.3 pg (25.0-35.0); MCHC 33.5 g/dL (31.0-37.0); MCV 108.2 fL (80.0-100.0); Macrocytosis Moderate; Mean Platelet Volume 7.5; Monocytes # (A) 0.4 k/uL (0-1.0); Monocytes % (A) 6 %; Neutrophils # (A) 4.8 k/uL (1.3-7.7); Neutrophils % (A) 67 %; Platelet Count 287 k/uL (150-450); RBC 3.99 m/uL (4.30-5.90); RDW 14.1 % (11.5-15.5); WBC 7.3 k/uL (3.8-10.6)
[2018-10-13 08:43] LABS: ALT 320 U/L (21-72); AST 542 U/L (17-59); Albumin 3.5 g/dL (3.5-5.0); Alkaline Phosphatase 189 U/L (38-126); Anion Gap 7 mmol/L; Blood Urea Nitrogen 6 mg/dL (9-20); Calcium 8.8 mg/dL (8.4-10.2); Carbon Dioxide 29 mmol/L (22-30); Chloride 100 mmol/L (98-107); Glucose 87 mg/dL (74-99); Potassium 3.5 mmol/L (3.5-5.1); Sodium 136 mmol/L (137-145); Total Bilirubin 3.5 mg/dL (0.2-1.3); Total Protein 6.5 g/dL (6.3-8.2)
[2018-10-13] MEDS ORDERED: MULTIVITAMINS, THERA 1 EACH TAB PO SCH (09:00)
[2018-10-13] MEDS ORDERED: PANTOPRAZOLE 40 MG/10 ML VIAL IV SCH (09:00)
[2018-10-13] MEDS ORDERED: LISINOPRIL 10 MG TAB PO SCH (09:00)
[2018-10-13] MEDS ORDERED: FOLIC ACID 1 MG TAB PO SCH (09:00)
[2018-10-13 09:04] VITALS: PULSE 94; RESP 16; TEMP 98.2
--- NOTE | 2018-10-13 09:56 | P.DS ---
Providers Date of admission: 10/12/18 17:28 Expected date of discharge: 10/13/18 Attending physician: Cody Walker MD Consults: 10/12/18 21:37 Consult Physician Routine Consulting Provider: Saran Maddox Consult Reason/Comments: Transaminititis, N/V, EtOH abuse Do you want consulting provider notified?: Yes Primary care physician: Carlos [facility] Course: 28-year-old male with PMH of hypertension and alcohol abuse presents the ED for nausea and vomiting. Patient states he has been drinking heavily on a daily basis over the last couple of years. He admits to drinking 1 pint of hard liquor daily. His last drink was 2 days ago. Patient reports multiple episodes of nonbilious nonbloody nausea and vomiting. He reports that today he had 20 episodes of vomiting. Patient reports he can taste blood in his vomitus denies physically seeing any blood or redness. Patient reports shakiness when he does not drink. He denies any seizures. Patient denies any headache, lower extremity edema, fever, chills, cough, chest pain, shortness breath, palpitations, changes in urination or bowel habits. Patient reports a decreased appetite over 2 days. He denies any dizziness, numbness/weakness/tingling of the extremities. Patient is admitted for dehydration, inability to tolerate by mouth and for impending alcohol withdrawal. With regard to his alcohol abuse, patient was placed on CIWA protocol. He was started on thiamine, folic acid and multivitamin. He was given Ativan as needed for withdrawal symptoms. Patient was placed on a vehicle monitor technician. His nausea and vomiting was thought to be secondary to gastritis or ulcer disease. He was placed on a regular diet and tolerated it well overnight. Patient started on Protonix 40 mg IV daily and given Zofran as needed for nausea or vomiting. Patient was noted to have an elevated liver enzymes. His total bilirubin is 4.5, AST of 764 and ALTs of 462 with alkaline phosphatase of 249. This is likely secondary to alcoholic hepatitis. Abdominal ultrasound showed fatty liver. Hepatitis panel was negative. Patient was seen and examined prior to discharge. No acute events overnight. Patient reports being able to tolerate his dinner and breakfast this morning. He denies any nausea or vomiting. He denies any abdominal pain. No changes in his urination or bowel habits. He denies any chest pain, shortness of breath or palpitations. General: [non toxic], [no distress], [appears at stated age] Derm: [warm], [dry] Head: [atraumatic], [normocephalic], [symmetric] Eyes: [EOMI], [no lid lag], [anicteric sclera] Mouth: [no lip lesion], [mucus membranes moist] Cardiovascular: [S1S2 reg], [no murmur], [positive DP pulse bilateral] Lungs: [CTA bilateral], [no rhonchi, no rales] , [no accessory muscle use] Abdominal: [soft], [ nontender to palpation], [no guarding], [no appreciable organomegaly] Ext: [no gross muscle atrophy], [no edema], [no contractures] Neuro: [no focal neuro deficits] Psych: [Alert], [oriented], [appropriate affect] Assessment and Plan 1. Alcohol abuse, pending withdrawal 2. Nausea vomiting 3. Transaminitis 4. Hypochloremic metabolic alkalosis 5. Hyponatremia and hypokalemia 6. Leukocytosis and macrocytosis Patient reports drinking daily, 1 pint of hard liquor over the past 2 years. Last drink was 2 days ago. Plan: [facility] protocol. Start thiamine, folic acid and multivitamin. Ativan as needed for withdrawal symptoms. Telemetry monitoring. Resolved. Likely secondary to gastritis or ulcer disease. Plan: Clear liquid diet. Protonix 40 mg IV daily. Zofran as needed for nausea and vomiting. Follow gastroenterology consult. Total bilirubin 4.5-3.5, AST 764-542, ALT 462-320, alkaline phosphatase of 249- 189. Likely secondary to alcoholic hepatitis. Abdominal ultrasound shows fatty liver and no obstruction. Hepatitis panel negative. Plan: Daily CMP. Follow gastroenterology consult. Resolved. Chloride 89, bicarbonate of 32. Likely secondary to vomiting. Plan: Continue normal saline at 100 mL/h. Daily BMP. Leukocytosis resolved. Macrocytosis with MCV of 108.2. Likely secondary to alcohol abuse. Patient is afebrile, no signs of infection. Plan: Follow B12 and folate. Daily CBC. Patient to be discharged today with close follow-up with PCP within 1-2 days of discharge. Advised against alcohol use. Pertinent Studies: Abdominal ultrasound Patient Condition at Discharge: Stable Plan - Discharge Summary Discharge Rx Participant: Yes New Discharge Prescriptions: New Folic Acid 1 mg PO DAILY #30 tab Multivitamins, Thera [Multivitamin (formulary)] 1 each PO DAILY #30 tab Pantoprazole Sodium [Protonix] 40 mg PO AC-BRKFST #30 tablet. Thiamine [Vitamin B-1] 100 mg PO BID-W/MEALS #60 tab Continue Lisinopril [Zestril] 10 mg PO DAILY #30 tab Discharge Medication List Folic Acid 1 mg PO DAILY #30 tab 10/13/18 [Rx] Lisinopril [Zestril] 10 mg PO DAILY #30 tab 10/13/18 [Rx] Multivitamins, Thera [Multivitamin (formulary)] 1 each PO DAILY #30 tab 10/13/18 [Rx] Pantoprazole Sodium [Protonix] 40 mg PO AC-BRKFST #30 tablet. 10/13/18 [Rx] Thiamine [Vitamin B-1] 100 mg PO BID-W/MEALS #60 tab 10/13/18 [Rx] Follow up Appointment(s)/Referral(s): Carlos Silva MD [Primary Care Provider] - 1-2 days Ambulatory/Diagnostic Orders: Comprehensive Metabolic Panel [LAB.AMB] Time Frame: 2 Days, Location: None Selected Activity/Diet/Wound Care/Special Instructions: Diet: Regular Follow-up with PCP within 1-2 days of discharge. Obtain CMP within 1-3 days of discharge. Follow-up results PCP. Take all medications as advised. Discharge Disposition: HOME SELF-CARE Pending Studies Pending Results: CMP to follow-up with PCP
[2018-10-13 10:03] VITALS: BP 138/80
[2018-10-13 16:49] LABS: Folate, Serum >24.0 ng/mL
== END 2018-10-13 11:04 | disposition home or self-care (01) | DRG 433 ==
LOC: EC 14:42 → 4SSUR 17:28
PROVIDERS: ADMIT Family Medicine; ATTEND Family Medicine
DX: K70.10 Alcoholic hepatitis without ascites (principal); F10.239 Alcohol dependence with withdrawal, unspecified; E87.3 Alkalosis; E87.1 Hypo-osmolality and hyponatremia; E87.8 Other disorders of electrolyte and fluid balance, not elsewhere classified; E86.0 Dehydration; K29.70 Gastritis, unspecified, without bleeding; E87.6 Hypokalemia; D75.89 Other specified diseases of blood and blood-forming organs; D72.829 Elevated white blood cell count, unspecified; K76.0 Fatty (change of) liver, not elsewhere classified; I10 Essential (primary) hypertension; F17.210 Nicotine dependence, cigarettes, uncomplicated; Z71.6 Tobacco abuse counseling; Z79.899 Other long term (current) drug therapy; Z98.890 Other specified postprocedural states
CPT/HCPCS: 36415; 76705; 80053; 80074; 80306; 80329; 81001; 82150; 82607; 82746; 83690; 83735; 85025; 96361; 96372; 96374; 96375; 99285

== ENCOUNTER 2018-12-21 18:13 | Emergency (ER) | payer OTHER ==
[2018-12-21 18:31] VITALS: TEMP 98.5
[2018-12-21 19:12] VITALS: PULSE 94
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
[2018-12-21 20:53] VITALS: BP 170/120; RESP 16
== END 2018-12-21 20:52 | disposition home or self-care (01) ==
LOC: EC 18:13
DX: F07.81 Postconcussional syndrome (principal); F17.200 Nicotine dependence, unspecified, uncomplicated; V47.5XXA Car driver injured in collision with fixed or stationary object in traffic accident, initial encounter; Y92.410 Unspecified street and highway as the place of occurrence of the external cause
CPT/HCPCS: 70450; 99283

== ENCOUNTER 2019-01-05 09:34 | Emergency (ER) | payer OTHER ==
[2019-01-05 09:50] VITALS: TEMP 98.7
[2019-01-05] MEDS ORDERED: LORazepam 1 MG TAB PO STA (10:31)
[2019-01-05] MEDS ORDERED: SODIUM CHLORIDE 0.9% 1,000 ML IV STA (10:31)
--- NOTE | 2019-01-05 10:37 | ED ---
General Adult HPI - General Chief complaint: Recheck/Abnormal Lab/Rx Stated complaint: Etoh withdrawal Time Seen by Provider: 01/05/19 10:04 Source: patient, RN notes reviewed Mode of arrival: ambulatory Limitations: no limitations - History of Present Illness Initial comments: Donovan is a 28-year-old male with a past medical history of alcohol dependence who presents today for alcohol intoxication and withdrawal. Patient states that he went to rehab and got out about a month ago for alcohol. Patient states that about a week ago he relapsed and began drinking again. Patient states he is drinking a pint of 99 proof liquor nightly. States that he last drank around 4 hours ago. States he has a headache and tremors at this time. States he feels nauseous. States that he wants to quit drinking again. The [place] chest pain or shortness of breath. Does admit to nausea but denies vomiting. He denies any suicidal thoughts or thoughts of harming himself or anyone else. Patient has no other complaints at this time including shortness of breath, chest pain, abdominal pain, nausea, headache, or visual changes. - Related Data Home Medications Medication Instructions Recorded Confirmed No Known Home Medications 01/05/19 01/05/19 Allergies Allergy/AdvReac Type Severity Reaction Status Date / Time No Known Allergies Allergy Verified 01/05/19 10:08 Review of Systems ROS Statement: Those systems with pertinent positive or pertinent negative responses have been documented in the HPI. ROS Other: All systems not noted in ROS Statement are negative. Past Medical History Past Medical History: No Reported History, Hypertension History of Any Multi-Drug Resistant Organisms: None Reported Past Surgical History: Tonsillectomy Past Anesthesia/Blood Transfusion Reactions: No Reported Reaction Past Psychological History: No Psychological Hx Reported Smoking Status: Current every day smoker Past Alcohol Use History: Abuse, Daily Past Drug Use History: Marijuana - Past Family History Father Family Medical History: Myocardial Infarction ([place]) Additional Family Medical History / Comment(s): at age 4949 years old [place] Mother Family Medical History: Hypertension General Exam Limitations: no limitations General appearance: alert, anxious Head exam: Present: atraumatic, normocephalic, normal inspection Eye exam: Present: normal appearance, PERRL, EOMI. Absent: scleral icterus, conjunctival injection, periorbital swelling ENT exam: Present: normal exam, mucous membranes moist Neck exam: Present: normal inspection, full ROM. Absent: tenderness, meningismus, lymphadenopathy Respiratory exam: Present: normal lung sounds bilaterally. Absent: respiratory distress, wheezes, rales, rhonchi, stridor Cardiovascular Exam: Present: regular rate, normal rhythm, normal heart sounds. Absent: systolic murmur, diastolic murmur, rubs, gallop, clicks Neurological exam: Present: alert, oriented X3, CN II-XII intact, normal gait Psychiatric exam: Present: normal affect, normal mood Course Vital Signs 01/05/19 01/05/19 01/05/19 09:47 11:36 13:40 Temperature 98.7 F 98.7 F Pulse Rate 131 H 108 H 108 H Respiratory 18 16 16 Rate Blood Pressure 192/110 159/118 159/118 O2 Sat by Pulse 99 99 99 Oximetry EKG Findings - EKG Comments: EKG Findings:: Sinus tachycardia, ventricular rate 106, FL interval 138, QTc 464 Medical Decision Making - Medical Decision Making Donovan is a 28-year-old male with a past medical history of alcohol dependence who presents for alcohol intoxication and withdrawal. Patient got out of rehab a month ago and then started drinking again a week ago. On exam patient is well-appearing. However he is anxious and nauseous. Vitals do show tachycardia which did improve throughout his stay, likely related to alcohol withdrawal. CBC is unremarkable. CMP does show a CO2 of 32, patient given fluids. Minimal Hypokalemia 3.3. EKG shows sinus tachycardia with a ventricular rate of 106. Alcohol is 160. patient reevaluated, resting comfortably, patient will be given by mouth Valium and recommended follow-up with primary care. Recommended return if he has any worsening symptoms. I did request a bimanual bp be done as diastolic was 118, however this was not obtained. High reading was likely due to patient's tremors. - Lab Data Result diagrams: 01/05/19 11:29 01/05/19 11:29 Lab Results 01/05/19 01/05/19 01/05/19 Range/Units 11:29 11:29 11:29 WBC 9.4 (3.8-10.6) k/uL RBC 4.17 L (4.30-5.90) m/uL Hgb 14.7 (13.0-17.5) gm/dL Hct 43.0 (39.0-53.0) % MCV 103.1 H (80.0-100.0) fL MCH 35.2 H (25.0-35.0) pg MCHC 34.1 (31.0-37.0) g/dL RDW 14.4 (11.5-15.5) % Plt Count 314 (150-450) k/uL Neutrophils % 64 % Lymphocytes % 28 % Monocytes % 5 % Eosinophils % 1 % Basophils % 0 % Neutrophils # 6.0 (1.3-7.7) k/uL Lymphocytes # 2.6 (1.0-4.8) k/uL Monocytes # 0.5 (0-1.0) k/uL Eosinophils # 0.1 (0-0.7) k/uL Basophils # 0.0 (0-0.2) k/uL Macrocytosis Slight Sodium 139 (137-145) mmol/L Potassium 3.3 L (3.5-5.1) mmol/L Chloride 97 L (98-107) mmol/L Carbon Dioxide 32 H (22-30) mmol/L Anion Gap 10 mmol/L BUN 10 (9-20) mg/dL Creatinine 0.79 (0.66-1.25) mg/dL Est GFR (CKD-EPI)AfAm >90 (>60 ml/min/1.73 sqM) Est GFR (CKD-EPI)NonAf >90 (>60 ml/min/1.73 sqM) Glucose 152 H (74-99) mg/dL Calcium 9.1 (8.4-10.2) mg/dL Magnesium 1.8 (1.6-2.3) mg/dL Total Bilirubin 0.7 (0.2-1.3) mg/dL AST 68 H (17-59) U/L ALT 32 (21-72) U/L Alkaline Phosphatase 120 (38-126) U/L Total Protein 7.3 (6.3-8.2) g/dL Albumin 4.4 (3.5-5.0) g/dL Urine Color Yellow Urine Appearance Clear (Clear) Urine pH 7.5 (5.0-8.0) Ur Specific [place] 1.023 (1.001-1.035) Urine Protein Trace H (Negative) Urine Glucose (UA) Negative (Negative) Urine Ketones Negative (Negative) Urine Blood Negative (Negative) Urine Nitrite Negative (Negative) Urine Bilirubin Negative (Negative) Urine Urobilinogen <2.0 (<2.0) mg/dL Ur Leukocyte Esterase Negative (Negative) Urine Opiates Screen Not Detected (NotDetected) Ur Oxycodone Screen Not Detected (NotDetected) Urine Methadone Screen Not Detected (NotDetected) Ur Propoxyphene Screen Not Detected (NotDetected) Ur Barbiturates Screen Not Detected (NotDetected) U Tricyclic Antidepress Not Detected (NotDetected) Ur Phencyclidine Scrn Not Detected (NotDetected) Ur Amphetamines Screen Not Detected (NotDetected) U Methamphetamines Scrn Not Detected (NotDetected) U Benzodiazepines Scrn Not Detected (NotDetected) Urine Cocaine Screen Not Detected (NotDetected) U Marijuana (THC) Screen Detected H (NotDetected) Serum Alcohol 168 mg/dL Disposition Clinical Impression: Alcohol withdrawal Disposition: HOME SELF-CARE Condition: Good Instructions (If sedation given, give patient instructions): Abuse of Alcohol (ED), Alcohol Withdrawal (ED) Additional Instructions: Please follow up with primary care in 1-2 days. Please return here to the emergency department if you have any worsening symptoms. Is patient prescribed a controlled substance at d/c from ED?: No Referrals: Carlos Silva MD [Primary Care Provider] - 1-2 days Time of Disposition: 12:49
[2019-01-05 11:40] VITALS: BP 159/118; PULSE 108; RESP 16
[2019-01-05 11:49] LABS: Appearance,Urine Clear (Clear); Bilirubin,Urine Negative (Negative); Blood,Urine Negative (Negative); Color,Urine Yellow; Glucose,Urine (UA) Negative (Negative); Ketones,Urine Negative (Negative); Leukocyte Esterase,Urine Negative (Negative); Nitrite,Urine Negative (Negative); PH, Urine 7.5 (5.0-8.0); Protein,Urine Trace (Negative); Specific Gravity,Urine 1.023 (1.001-1.035); Urobilinogen,Urine <2.0 mg/dL (<2.0)
[2019-01-05 11:50] LABS: ALT 32 U/L (21-72); AST 68 U/L (17-59); African American GFR (CKD) >90 (>60 ml/min/1.73 sqM); Albumin 4.4 g/dL (3.5-5.0); Alkaline Phosphatase 120 U/L (38-126); Anion Gap 10 mmol/L; Blood Urea Nitrogen 10 mg/dL (9-20); Calcium 9.1 mg/dL (8.4-10.2); Carbon Dioxide 32 mmol/L (22-30); Chloride 97 mmol/L (98-107); Glucose 152 mg/dL (74-99); Magnesium 1.8 mg/dL (1.6-2.3); Potassium 3.3 mmol/L (3.5-5.1); Sodium 139 mmol/L (137-145); Total Bilirubin 0.7 mg/dL (0.2-1.3); Total Protein 7.3 g/dL (6.3-8.2)
[2019-01-05 11:54] LABS: Basophils % (A) 0 %; Eosinophils # (A) 0.1 k/uL (0-0.7); Eosinophils % (A) 1 %; HGB 14.7 gm/dL (13.0-17.5); Lymphocytes # (A) 2.6 k/uL (1.0-4.8); Lymphocytes % (A) 28 %; MCH 35.2 pg (25.0-35.0); MCHC 34.1 g/dL (31.0-37.0); MCV 103.1 fL (80.0-100.0); Macrocytosis Slight; Mean Platelet Volume 6.7; Monocytes # (A) 0.5 k/uL (0-1.0); Monocytes % (A) 5 %; Neutrophils % (A) 64 %; Platelet Count 314 k/uL (150-450); RBC 4.17 m/uL (4.30-5.90); RDW 14.4 % (11.5-15.5); WBC 9.4 k/uL (3.8-10.6)
[2019-01-05 12:00] LABS: Amphetamine Screen,Urine Not Detected (NotDetected); Barbiturate Screen,Urine Not Detected (NotDetected); Benzodiazepines Screen,Urine Not Detected (NotDetected); Cocaine Screen,Urine Not Detected (NotDetected); Methadone Screen, Urine Not Detected (NotDetected); Opiate Screen,Urine Not Detected (NotDetected); Oxycodone Screen, Urine Not Detected (NotDetected); Phencyclidine Screen,Urine Not Detected (NotDetected); Tricyclic Antidepressant,Urine Not Detected (NotDetected); Urn Cannabinoid Scrn Detected (NotDetected)
[2019-01-05 12:03] LABS: Alcohol 168 mg/dL
[2019-01-05] MEDS ORDERED: DIAZEPAM 5 MG TAB PO STA (12:51)
== END 2019-01-05 13:40 | disposition home or self-care (01) ==
LOC: EC 09:34
DX: F10.239 Alcohol dependence with withdrawal, unspecified (principal); R51 Headache; E87.6 Hypokalemia; R00.0 Tachycardia, unspecified; F17.200 Nicotine dependence, unspecified, uncomplicated
CPT/HCPCS: 36415; 80053; 80306; 80320; 81003; 83735; 85025; 93005; 96360; 99284

== ENCOUNTER 2019-04-07 01:35 | Emergency (ER) | payer OTHER ==
[2019-04-07 01:42] VITALS: TEMP 98.5
[2019-04-07] MEDS ORDERED: LORazepam 2 MG/ML INJ IV STA (01:47)
[2019-04-07] MEDS ORDERED: SODIUM CHLORIDE 0.9% 1,000 ML IV ONE (01:47)
[2019-04-07] MEDS ORDERED: ONDANSETRON 4 MG/2 ML VIAL IVP STA (01:47)
[2019-04-07 02:12] LABS: Basophils # (A) 0.2 k/uL (0-0.2); Basophils % (A) 2 %; Eosinophils # (A) 0.1 k/uL (0-0.7); Eosinophils % (A) 1 %; HCT 44.8 % (39.0-53.0); HGB 15.3 gm/dL (13.0-17.5); Lymphocytes # (A) 1.2 k/uL (1.0-4.8); Lymphocytes % (A) 14 %; MCH 36.9 pg (25.0-35.0); MCHC 34.2 g/dL (31.0-37.0); MCV 107.8 fL (80.0-100.0); Macrocytosis Moderate; Mean Platelet Volume 5.8; Monocytes # (A) 0.4 k/uL (0-1.0); Monocytes % (A) 5 %; Neutrophils # (A) 6.6 k/uL (1.3-7.7); Neutrophils % (A) 77 %; Platelet Count 223 k/uL (150-450); RBC 4.16 m/uL (4.30-5.90); RDW 13.3 % (11.5-15.5); WBC 8.6 k/uL (3.8-10.6)
--- NOTE | 2019-04-07 02:16 | ED ---
Nausea/Vomiting/Diarrhea HPI - General Chief complaint: Nausea/Vomiting/Diarrhea Stated complaint: Nausea Time Seen by Provider: 04/07/19 01:47 Source: patient Mode of arrival: ambulatory Limitations: no limitations - History of Present Illness MD complaint: nausea, vomiting -: hour(s) Description of Vomiting: food contents Associated Abdominal Pain: Yes Location: LUQ Radiation: none Quality: other (Burning) Consistency: constant Improves with: none Worsens with: none Associated Symptoms: nausea/vomiting - Related Data Previous Rx's Medication Instructions Recorded Ondansetron Odt [Zofran ODT] 4 mg PO Q8HR PRN #10 tab 04/07/19 Allergies Allergy/AdvReac Type Severity Reaction Status Date / Time No Known Allergies Allergy Verified 04/07/19 01:42 Review of Systems ROS Statement: Those systems with pertinent positive or pertinent negative responses have been documented in the HPI. ROS Other: All systems not noted in ROS Statement are negative. Constitutional: Denies: fever, chills Respiratory: Denies: cough, dyspnea Cardiovascular: Denies: chest pain, palpitations Gastrointestinal: Reports: abdominal pain, nausea, vomiting. Denies: diarrhea Genitourinary: Denies: dysuria, hematuria Musculoskeletal: Denies: back pain Skin: Denies: rash Neurological: Denies: headache Past Medical History Past Medical History: No Reported History, Hypertension History of Any Multi-Drug Resistant Organisms: None Reported Past Surgical History: Tonsillectomy Past Anesthesia/Blood Transfusion Reactions: No Reported Reaction Past Psychological History: No Psychological Hx Reported Smoking Status: Current every day smoker Past Alcohol Use History: Abuse, Daily Past Drug Use History: Marijuana - Past Family History Father Family Medical History: Myocardial Infarction ([place]) Additional Family Medical History / Comment(s): at age 4949 years old [place] Mother Family Medical History: Hypertension General Exam Limitations: no limitations General appearance: alert, in no apparent distress Head exam: Present: atraumatic, normocephalic Eye exam: Present: normal appearance. Absent: scleral icterus, conjunctival injection ENT exam: Present: normal oropharynx Neck exam: Present: normal inspection Respiratory exam: Present: normal lung sounds bilaterally. Absent: respiratory distress, wheezes, rales, rhonchi, stridor Cardiovascular Exam: Present: normal rhythm, tachycardia, normal heart sounds. Absent: systolic murmur, diastolic murmur, rubs, gallop GI/Abdominal exam: Present: soft. Absent: distended, tenderness, guarding, rebound, rigid, mass Extremities exam: Present: normal inspection, normal capillary refill. Absent: pedal edema, calf tenderness Back exam: Present: normal inspection. Absent: CVA tenderness (R), CVA tenderness (L) Neurological exam: Present: alert Skin exam: Present: warm, dry, intact, normal color. Absent: rash Course Vital Signs 04/07/19 04/07/19 04/07/19 01:39 03:50 04:28 Temperature 98.5 F Pulse Rate 116 H 107 H 106 H Respiratory 20 18 18 Rate Blood Pressure 166/115 171/106 161/114 O2 Sat by Pulse 98 97 100 Oximetry Medical Decision Making - Lab Data Result diagrams: 04/07/19 02:04 04/07/19 02:04 Lab Results 04/07/19 04/07/19 04/07/19 Range/Units 02:04 02:04 02:04 WBC 8.6 (3.8-10.6) k/uL RBC 4.16 L (4.30-5.90) m/uL Hgb 15.3 (13.0-17.5) gm/dL Hct 44.8 (39.0-53.0) % MCV 107.8 H (80.0-100.0) fL MCH 36.9 H (25.0-35.0) pg MCHC 34.2 (31.0-37.0) g/dL RDW 13.3 (11.5-15.5) % Plt Count 223 (150-450) k/uL Neutrophils % 77 % Lymphocytes % 14 % Monocytes % 5 % Eosinophils % 1 % Basophils % 2 % Neutrophils # 6.6 (1.3-7.7) k/uL Lymphocytes # 1.2 (1.0-4.8) k/uL Monocytes # 0.4 (0-1.0) k/uL Eosinophils # 0.1 (0-0.7) k/uL Basophils # 0.2 (0-0.2) k/uL Macrocytosis Moderate Sodium 133 L (137-145) mmol/L Potassium 3.9 (3.5-5.1) mmol/L Chloride 95 L (98-107) mmol/L Carbon Dioxide 27 (22-30) mmol/L Anion Gap 11 mmol/L BUN 13 (9-20) mg/dL Creatinine 0.79 (0.66-1.25) mg/dL Est GFR (CKD-EPI)AfAm >90 (>60 ml/min/1.73 sqM) Est GFR (CKD-EPI)NonAf >90 (>60 ml/min/1.73 sqM) Glucose 104 H (74-99) mg/dL Calcium 9.2 (8.4-10.2) mg/dL Total Bilirubin 3.4 H (0.2-1.3) mg/dL AST 1380 H (17-59) U/L ALT 696 H (21-72) U/L Alkaline Phosphatase 203 H (38-126) U/L Total Protein 7.7 (6.3-8.2) g/dL Albumin 4.5 (3.5-5.0) g/dL Amylase 59 (30-110) U/L Lipase 203 (23-300) U/L Serum Alcohol 24 mg/dL Disposition Clinical Impression: Acute hepatitis, Gastritis Disposition: HOME SELF-CARE Condition: Good Instructions (If sedation given, give patient instructions): Gastritis (ED), Alcoholic Hepatitis (ED) Prescriptions: Ondansetron Odt [Zofran ODT] 4 mg PO Q8HR PRN #10 tab PRN Reason: Nausea Is patient prescribed a controlled substance at d/c from ED?: No Referrals: Carlos Silva MD [Primary Care Provider] - 1-2 days
[2019-04-07 02:22] LABS: ALT 696 U/L (21-72); African American GFR (CKD) >90 (>60 ml/min/1.73 sqM); Albumin 4.5 g/dL (3.5-5.0); Alcohol 24 mg/dL; Alkaline Phosphatase 203 U/L (38-126); Anion Gap 11 mmol/L; Blood Urea Nitrogen 13 mg/dL (9-20); Calcium 9.2 mg/dL (8.4-10.2); Carbon Dioxide 27 mmol/L (22-30); Chloride 95 mmol/L (98-107); Glucose 104 mg/dL (74-99); Potassium 3.9 mmol/L (3.5-5.1); Sodium 133 mmol/L (137-145); Total Bilirubin 3.4 mg/dL (0.2-1.3); Total Protein 7.7 g/dL (6.3-8.2)
[2019-04-07 02:37] LABS: AST 1380 U/L (17-59)
[2019-04-07 03:08] LABS: Amylase 59 U/L (30-110)
[2019-04-07 03:50] VITALS: RESP 18
[2019-04-07 04:30] VITALS: BP 161/114; PULSE 106
[2019-04-07] MEDS ORDERED: LISINOPRIL 20 MG TAB PO STA (04:33)
[2019-04-07 05:13] LABS: Hepatitis A Antibody IgM NEGATIVE
[2019-04-07 11:26] LABS: Hepatitis B Core IgM Non-Reactive (Non-Reactive); Hepatitis B Surface Antigen Non-Reactive (Non-Reactive); Hepatitis C IgG Antibody Non-Reactive (Non-Reactive)
== END 2019-04-07 04:55 | disposition home or self-care (01) ==
LOC: EC 01:35
DX: K29.70 Gastritis, unspecified, without bleeding (principal); B17.9 Acute viral hepatitis, unspecified; F17.200 Nicotine dependence, unspecified, uncomplicated
CPT/HCPCS: 36415; 80053; 80074; 82150; 83690; 85025; 80320; 99284; 96374; 96375; 96361; J2060; J2405

== ENCOUNTER 2019-08-23 12:26 | Observation (INO) | payer OTHER ==
[2019-08-23] MEDS ORDERED: SODIUM CHLORIDE 0.9% 500 ML 500 ML IV STA (13:17)
[2019-08-23] MEDS ORDERED: SODIUM CHLORIDE 0.9% 1,000 ML IV STA (13:17)
[2019-08-23 13:47] LABS: INR 1.1 (<1.2); Prothrombin Time 11.3 sec (9.0-12.0)
[2019-08-23 13:48] LABS: Partial Thromboplastin Time 28.2 sec (22.0-30.0)
[2019-08-23 13:50] LABS: Albumin 5.6 g/dL (3.5-5.0); Magnesium 1.9 mg/dL (1.6-2.3); Total Bilirubin 0.6 mg/dL (0.2-1.3); Total Protein 9.2 g/dL (6.3-8.2)
[2019-08-23 13:53] LABS: HGB 16.5 gm/dL (13.0-17.5); MCH 36.9 pg (25.0-35.0); MCHC 35.1 g/dL (31.0-37.0); MCV 105.1 fL (80.0-100.0); Macrocytosis Slight; Mean Platelet Volume 8.1; Platelet Count 237 k/uL (150-450); RBC 4.47 m/uL (4.30-5.90); WBC 9.3 k/uL (3.8-10.6)
--- NOTE | 2019-08-23 14:04 | ED ---
General Adult HPI <Larry Thompson - Last Filed: 08/23/19 14:28> - General Source: patient, RN notes reviewed Mode of arrival: ambulatory Limitations: no limitations <Dave Cedillo - Last Filed: 08/23/19 14:44> - General Chief complaint: Recheck/Abnormal Lab/Rx Stated complaint: Kidney failure Time Seen by Provider: 08/23/19 13:02 - History of Present Illness Initial comments: This a 28-year-old male presents emergency Department chief complaint of acute renal failure. Patient states that his doctor sent him here for evaluation secondary for renal failure. Patient states he was a former drinker quit approximately one week ago. Patient states that he used to drink 1 pint today. Patient has no complaints. Denies chest pain, shortness breath, abdominal pain, leg swelling, decreased urine output. (Dave Cedillo) - Related Data Home Medications Medication Instructions Recorded Confirmed No Known Home Medications 08/23/19 08/23/19 Allergies Allergy/AdvReac Type Severity Reaction Status Date / Time No Known Allergies Allergy Verified 04/07/19 01:42 Review of Systems ROS Other: All systems not noted in ROS Statement are negative. <Larry Thompson - Last Filed: 08/23/19 14:28> ROS Other: All systems not noted in ROS Statement are negative. <Dave Cedillo - Last Filed: 08/23/19 14:44> ROS Statement: Those systems with pertinent positive or pertinent negative responses have been documented in the HPI. Past Medical History Past Medical History: No Reported History, Hypertension History of Any Multi-Drug Resistant Organisms: None Reported Past Surgical History: Tonsillectomy Past Anesthesia/Blood Transfusion Reactions: No Reported Reaction Past Psychological History: No Psychological Hx Reported Smoking Status: Current every day smoker Past Alcohol Use History: Abuse, Daily Past Drug Use History: Marijuana - Past Family History Father Family Medical History: Myocardial Infarction ([place]) Additional Family Medical History / Comment(s): at age 4949 years old [place] Mother Family Medical History: Hypertension <Dave Cedillo - Last Filed: 08/23/19 14:44> General Exam Limitations: no limitations General appearance: alert, in no apparent distress Head exam: Present: atraumatic, normocephalic, normal inspection Eye exam: Present: normal appearance, PERRL, EOMI. Absent: scleral icterus, conjunctival injection, periorbital swelling ENT exam: Present: normal exam, normal oropharynx, mucous membranes moist, TM's normal bilaterally Neck exam: Present: normal inspection. Absent: tenderness, meningismus, lymphadenopathy Respiratory exam: Present: normal lung sounds bilaterally. Absent: respiratory distress, wheezes, rales, rhonchi, stridor Cardiovascular Exam: Present: regular rate, normal rhythm, normal heart sounds. Absent: systolic murmur, diastolic murmur, rubs, gallop, clicks GI/Abdominal exam: Present: soft, normal bowel sounds. Absent: distended, tenderness, guarding, rebound, rigid Back exam: Absent: CVA tenderness (R), CVA tenderness (L) Neurological exam: Present: alert, oriented X3 Skin exam: Present: warm, dry, intact, normal color. Absent: rash <Dave Cedillo - Last Filed: 08/23/19 14:44> Course <Larry Thompson - Last Filed: 08/23/19 14:28> Vital Signs 08/23/19 12:42 Temperature 97.8 F Pulse Rate 91 Respiratory 18 Rate Blood Pressure 117/75 O2 Sat by Pulse 100 Oximetry - Reevaluation(s) Reevaluation #1: 08/23/19 14:28 Case was discussed with Dr. Bravo who recommends IV fluids and salicylate level. Patient will need to be reevaluated to see if fluids help. She will consult. (Larry Thompson) Medical Decision Making - Lab Data Result diagrams: 08/23/19 13:05 08/23/19 13:05 <Larry Thompson - Last Filed: 08/23/19 14:28> - Lab Data Result diagrams: 08/23/19 13:05 08/23/19 13:05 <Dave Cedillo - Last Filed: 08/23/19 14:44> - Medical Decision Making Patient be admitted for IV fluid hydration, acute renal failure for evaluation by nephrology (Dave Cedillo) - Lab Data Lab Results 08/23/19 08/23/19 08/23/19 Range/Units 13:05 13:05 13:05 WBC 9.3 (3.8-10.6) k/uL RBC 4.47 (4.30-5.90) m/uL Hgb 16.5 (13.0-17.5) gm/dL Hct 47.0 (39.0-53.0) % MCV 105.1 H (80.0-100.0) fL MCH 36.9 H (25.0-35.0) pg MCHC 35.1 (31.0-37.0) g/dL RDW 13.0 (11.5-15.5) % Plt Count 237 (150-450) k/uL Neutrophils % (Manual) 71 % Lymphocytes % (Manual) 15 % Monocytes % (Manual) 13 % Eosinophils % (Manual) 1 % Neutrophils # (Manual) 6.60 (1.3-7.7) k/uL Lymphocytes # (Manual) 1.40 (1.0-4.8) k/uL Monocytes # (Manual) 1.21 H (0-1.0) k/uL Eosinophils # (Manual) 0.09 (0-0.7) k/uL Nucleated RBCs 0 (0-0) /100 WBC Manual Slide Review Performed Anisocytosis (manual) Present Macrocytosis Slight PT 11.3 (9.0-12.0) sec INR 1.1 (<1.2) APTT 28.2 (22.0-30.0) sec Sodium 127 L (137-145) mmol/L Potassium 4.0 (3.5-5.1) mmol/L Chloride 80 L (98-107) mmol/L Carbon Dioxide 17 L (22-30) mmol/L Anion Gap 30 mmol/L BUN 64 H (9-20) mg/dL Creatinine 10.35 H* (0.66-1.25) mg/dL Est GFR (CKD-EPI)AfAm 7 (>60 ml/min/1.73 sqM) Est GFR (CKD-EPI)NonAf 6 (>60 ml/min/1.73 sqM) Glucose 101 H (74-99) mg/dL Calcium 9.0 (8.4-10.2) mg/dL Phosphorus 15.7 H* (2.5-4.5) mg/dL Magnesium 1.9 (1.6-2.3) mg/dL Total Bilirubin 0.6 (0.2-1.3) mg/dL AST 151 H (17-59) U/L ALT 148 H (4-49) U/L Alkaline Phosphatase 116 (38-126) U/L Creatine Kinase 471 H (55-170) U/L Total Protein 9.2 H (6.3-8.2) g/dL Albumin 5.6 H (3.5-5.0) g/dL Amylase 98 (30-110) U/L Lipase 450 H (23-300) U/L Critical Care Time Critical Care Time: Yes Total Critical Care Time: 35 <Dave Cedillo - Last Filed: 08/23/19 14:44> Critical Care Time: Total 35 minutes of critical care time were used to initially evaluated patient in the past medical history, morning labs and further studies including ultra sound. Patient's found to be acute renal failure with elevated phosphorus. Patient's case discussed with Dr. Bradley and Dr. Adams. They recommended IV fluid hydration, sialcylate level in admission. (Dave Cedillo) Disposition <Larry Thompson - Last Filed: 08/23/19 14:28> <Dave Cedillo - Last Filed: 08/23/19 14:44> Clinical Impression: Acute renal failure, Transaminitis, Hyponatremia, Metabolic acidosis, Hyperphosphatemia Disposition: ADMITTED IP TO THIS HOSP Condition: Serious Referrals: Carlos Silva MD [Primary Care Provider] - 1-2 days
[2019-08-23 14:05] LABS: Phosphorus 15.7 mg/dL (2.5-4.5)
--- NOTE | 2019-08-23 14:11 | US ---
EXAMINATION TYPE: US kidneys/renal and bladder DATE OF EXAM: 08/23/2019 COMPARISON: CT abdomen and pelvis January 28, 2015 CLINICAL HISTORY: Renal failure. Abnormal labs. EXAM MEASUREMENTS: Right Kidney: 11.6 x 4.5 x 5.4 cm Left Kidney: 12.1 x 5.8 x 5.0 cm Right Kidney: No hydronephrosis or masses seen Left Kidney: No hydronephrosis or masses seen Bladder: not distended, not well seen When scanning the right kidney adjacent liver is heterogeneously hyperechoic felt to reflect product of diffuse fatty infiltration or underlying hepatocellular disease. There is no evidence for hydronephrosis at this point in time. No nephrolithiasis is seen. No sai s are identified. The urinary bladder is not greatly distended. Bilateral ureteral jets are not see n. IMPRESSION: No hydronephrosis is seen bilaterally.
[2019-08-23] MEDS ORDERED: LIDOCAINE URO-JET JELLY 2% 5 ML KIT URETHRAL ONE (14:18)
[2019-08-23 14:22] LABS: Anisocytosis (M) Present; Eosinophils # (M) 0.09 k/uL (0-0.7); Monocytes # (M) 1.21 k/uL (0-1.0); Neutrophils % (M) 71 %; Nucleated Red Blood Cells 0 /100 WBC (0-0); Total Cells Counted 100
[2019-08-23] MEDS ORDERED: NALOXONE 0.4 MG/ML 1 ML VIAL IV PRN (14:44)
[2019-08-23] MEDS ORDERED: ONDANSETRON 4 MG/2 ML VIAL IVP PRN (14:44)
--- NOTE | 2019-08-23 15:53 | P.HPIM ---
History of Present Illness H&P Date: 08/23/19 Chief Complaint: Tired History of presenting complaint: This is a 28-year-old patient of Dr. Mireille Silva. Patient has been drinking a pint of day of 99 apple, that is 99% Percent vodka up to about a week ago for at least 7 years. Also does 1 or 2 joints of marijuana day and smokes cigarettes. Patient for a week has been feeling dizzy lightheaded not feeling well. Went to see his family doctor. From where he was sent into the ER. Also patient urine output is decreased in the last couple of days. No fever or chills. Patient was discovered to have a creatinine of 10.35 and a bun of 64. Patient's had kidney stones in the past but does not recollect any kidney dysfunction otherwise. Nephrology was consulted. Review of systems: GEN.: Tired disease lightheaded EYES: None HEENT: None NECK: None RESPIRATORY: None CARDIOVASCULAR: None GASTROINTESTINAL: None GENITOURINARY: Decreased urine output MUSCULOSKELETAL: None LYMPHATICS: None HEMATOLOGICAL: None PSYCHIATRY: Bit anxious NEUROLOGICAL: None Past medical history to include: Kidney stones Social history: Lives with his mother and brother. Works at the [employer] at [employer]. Smokes for 2 joints of marijuana day. Was drinking a pint of 99 apple which is 99% vodka for at least 7 years up to about a week ago. Does smoke a pack of cigarettes a day. Physical examination: VITAL SIGNS: 97.8, 91, 18, blood pressure 1705, 100% on room air GENERAL: BMI 22.7, laying in bed tired. EYES: Pupils equal. Conjunctiva normal. HEENT: External appearance of nose and ears normal, oral cavity grossly normal. NECK: JVD not raised; masses not palpable. HEART: First and second heart sounds are normal; no edema. LUNGS: Respiratory rate normal; clear to auscultation. ABDOMEN: Soft, nontender, liver spleen not palpable, no masses palpable. PSYCH: [Alert and oriented x3; mood and affect anxious l. NEUROLOGICAL: Cranial nerves grossly intact; no facial asymmetry, power and sensation grossly intact. LYMPHATICS: No lymph nodes palpable in the axilla and neck Past medical history to include: Kidney stones INVESTIGATIONS, reviewed in the clinical context: White count 9.3 hemoglobin 16.5 increased MCV platelets 237 potassium 4 sodium 127 bun 64 creatinine 10.35 bicarbonate 17 phosphorus 15.7 AST 151 ALT 148 albumin 5.6 amylase 98 lipase 450 ABDOMEN NO KIDNEY STONES LIVER IS HETEROGENEOUSLY HYPERECHOIC ASSESSMENT: -Acute severe kidney injury. At this point exact cause unknown. Renal ultraso und has not shown any evidence of any chronic kidney disease. He was being sent off. -Hyperphosphatemia secondary to renal failure -Chronic alcoholism -Alcoholic hepatitis -Acute metabolic acidosis from renal failure -Chronic nicotine dependence patient cigarette smoker -Recreational marijuana use Plan: Patient started on IV fluids. Nephrology was consulted. Patient may need to get hemodialyzed depending on his response. I's andstrictly monitored. We'll send off a UA. Lovenox for DVT prophylaxis. Patient advised against alcohol and smoking. Was given a nicotine patch. Patient will be informing his family. Patient put on renal diet. Past Medical History Past Medical History: Hypertension History of Any Multi-Drug Resistant Organisms: None Reported Past Surgical History: Tonsillectomy Past Anesthesia/Blood Transfusion Reactions: No Reported Reaction Past Psychological History: No Psychological Hx Reported Smoking Status: Current every day smoker Past Alcohol Use History: Abuse, Daily Additional Past Alcohol Use History / Comment(s): 1 pint vodka daily Past Drug Use History: Marijuana - Past Family History Father Family Medical History: Myocardial Infarction ([place]) Additional Family Medical History / Comment(s): at age 4949 years old [place] Mother Family Medical History: Hypertension Medications and Allergies Home Medications Medication Instructions Recorded Confirmed Type No Known Home Medications 08/23/19 08/23/19 History Allergies Allergy/AdvReac Type Severity Reaction Status Date / Time No Known Allergies Allergy Verified 04/07/19 01:42 Physical Exam Vitals: Vital Signs Temp Pulse Resp BP Pulse Ox 08/23/19 15:00 98 18 124/70 99 08/23/19 14:30 100 18 125/61 99 08/23/19 14:00 104 H 16 109/79 98 08/23/19 13:30 108 H 18 115/74 97 08/23/19 12:42 97.8 F 91 18 117/75 100 Intake and Output 08/23/19 08/23/19 08/23/19 06:59 14:59 22:59 Other: Weight 78.018 kg 78.018 kg Results CBC & Chem 7: 08/23/19 13:05 08/23/19 13:05 Labs: Abnormal Lab Results - Last 24 Hours (Table) 08/23/19 08/23/19 Range/Units 13:05 13:05 MCV 105.1 H (80.0-100.0) fL MCH 36.9 H (25.0-35.0) pg Monocytes # (Manual) 1.21 H (0-1.0) k/uL Sodium 127 L (137-145) mmol/L Chloride 80 L (98-107) mmol/L Carbon Dioxide 17 L (22-30) mmol/L BUN 64 H (9-20) mg/dL Creatinine 10.35 H* (0.66-1.25) mg/dL Glucose 101 H (74-99) mg/dL Phosphorus 15.7 H* (2.5-4.5) mg/dL AST 151 H (17-59) U/L ALT 148 H (4-49) U/L Creatine Kinase 471 H (55-170) U/L Total Protein 9.2 H (6.3-8.2) g/dL Albumin 5.6 H (3.5-5.0) g/dL Lipase 450 H (23-300) U/L
[2019-08-23] MEDS: NICOTINE 21MG/24HR PATCH TRANSDERM SCH (17:21)
[2019-08-23] MEDS: ENOXAPARIN 40 MG/0.4 ML SYRINGE SQ SCH (17:22)
[2019-08-23] MEDS: CALCIUM ACETATE 667 MG TAB PO SCH (17:22)
[2019-08-23] MEDS: SODIUM CHLORIDE 0.9% 1,000 ML IV SCH (17:25)
[2019-08-24 00:46] LABS: Appearance,Urine Cloudy (Clear); Bacteria,Urine Moderate /hpf; Bilirubin,Urine Negative (Negative); Blood,Urine Large (Negative); Color,Urine Light Yellow; Glucose,Urine (UA) Negative (Negative); Hyaline Casts,Urine 10 /lpf (0-2); Ketones,Urine Negative (Negative); Leukocyte Esterase,Urine Moderate (Negative); Mucus,Urine Rare /hpf; Nitrite,Urine Negative (Negative); PH, Urine 5.5 (5.0-8.0); Protein,Urine 1+ (Negative); RBC,Urine 42 /hpf (0-5); Specific Gravity,Urine 1.008 (1.001-1.035); Urobilinogen,Urine <2.0 mg/dL (<2.0); WBC,Urine 13 /hpf (0-5)
[2019-08-24] MEDS: SODIUM CHLORIDE 0.9% 1,000 ML IV SCH ×2 (03:27→19:13)
[2019-08-24] MEDS: CALCIUM ACETATE 667 MG TAB PO SCH ×2 (07:50→14:24)
[2019-08-24] MEDS: NICOTINE 21MG/24HR PATCH TRANSDERM SCH (07:50)
[2019-08-24] MEDS: ENOXAPARIN 40 MG/0.4 ML SYRINGE SQ SCH (07:50)
[2019-08-24 10:22] LABS: Calcium 9.2 mg/dL (8.4-10.2); Potassium 3.6 mmol/L (3.5-5.1)
--- NOTE | 2019-08-24 14:51 | CONS ---
CONSULTATION REASON FOR CONSULT: Renal failure. HISTORY OF PRESENT ILLNESS: Patient is a 28-year-old male who was admitted to the hospital with complaints of weakness. He was seen by his primary care physician and had lab work done and was called to go into the hospital, as his creatinine was found to be significantly elevated. The patient had been complaining of increased weakness for the last 2-3 days. He did notice that he had some decrease in his urine output. Patient denies any prior history of kidney diseases. He denies use of any nonsteroidal anti-inflammatory agents. Serum creatinine was noted to be 10.35 mg/dL on admission. Patient stated that he checked his blood pressure at home and it had been low, in the 90s and 80s systolic. He is maintained on OBED inhibitors, which he had been taking for the past few days. There is no history of rash. No joint pains. No history of kidney stones. No other new medication started recently. Patient was started on IV fluids overnight. This morning his creatinine is down to 2.48 mg/dL. He has had good urine output. PAST MEDICAL HISTORY: Hypertension. PAST SURGICAL HISTORY: Tonsillectomy. SOCIAL HISTORY: Positive for smoking. Patient has also use marijuana. No history of other drug abuse or alcohol abuse. MEDICATIONS: Medications at home prior to admission included lisinopril. REVIEW OF SYSTEMS: As per HPI. Other systems negative. PHYSICAL EXAMINATION: On examination, patient is comfortable, awake, not in any acute distress. Blood pressure is 127/62, heart rate 70 per minute. Patient is afebrile. EXAMINATION OF THE HEART: S1 and S2. EXAMINATION OF LUNGS: Bilateral breath sounds are heard. ABDOMEN: Soft, non-tender. Examination of lower extremities shows no significant edema. CMA exam is grossly intact. LABS: Sodium 132, potassium 3.6, chloride 94, BUN 58, creatinine 2.48, calcium 9.0, phosphorus 15.7 mg/dL. ASSESSMENT: 1. Acute kidney injury, acute tubular necrosis, secondary to hypotension, hypoperfusion, initially oliguric. Currently nonoliguric with significantly improved renal function with IV fluids and improved blood pressures. 2. Hypertension. Patient was on OBED inhibitors at home. Will hold off on the OBED inhibitors for now. 3. Metabolic acidosis with large anion gap secondary to renal failure. No history of alcohol ingestion. Salicylates were negative. The gap is now closed and acidosis has improved significantly. 4. Hypovolemic hyponatremia, now improved. 5. Hyperphosphatemia associated with acute kidney injury. Patient was started on phosphate binders yesterday. I will discontinue the phosphate binders. I expect his phosphorus to continue to improve with improving renal function. PLAN: Continue normal saline. Discontinue PhosLo. Repeat labs in a.m. Patient is advised to avoid use of any NSAIDs down the road. Thank you for this consultation. Will continue to follow the patient with you during his hospitalization. JESSICA / RAYMONDN: [phone] /
--- NOTE | 2019-08-24 16:51 | P.PN ---
Progress Note - Text Progress Note Date: 08/24/19 Chief Complaint: Tired History of presenting complaint: This is a 28-year-old patient of Dr. Mireille Silva. Patient has been drinking a pint of day of 99 apple, that is 99% Percent vodka up to about a week ago for at least 7 years. Also does 1 or 2 joints of marijuana day and smokes cigarettes. Patient for a week has been feeling dizzy lightheaded not feeling well. Went to see his family doctor. From where he was sent into the ER. Also patient urine output is decreased in the last couple of days. No fever or chills. Patient was discovered to have a creatinine of 10.35 and a bun of 64. Patient's had kidney stones in the past but does not recollect any kidney dysfunction otherwise. Nephrology was consulted. Admitted with acute severe renal failure. Chronic alcoholism. Started on IV fluids. Today-laying in bed. Feels a bit better. Tired. Review of systems: Was done for constitutional, cardiovascular, GI, pulmonary. relevant finding as above Active Medications Enoxaparin Sodium (Lovenox) 40 mg SQ DAILY [facility] Last Admin: 08/24/19 07:50 Dose: 40 mg Documented by: Sodium Chloride (Saline 0.9%) 1,000 mls @ 75 mls/hr IV .[id number] [facility] Last Admin: 08/24/19 03:27 Dose: 75 mls/hr Documented by: Naloxone HCl (Narcan) 0.2 mg IV Q2M PRN PRN Reason: Opioid Reversal Nicotine (Habitrol 21mg/24hr Patch) 1 patch TRANSDERM DAILY [facility] Last Admin: 08/24/19 07:50 Dose: 1 patch Documented by: Ondansetron HCl (Zofran) 4 mg IVP Q8HR PRN PRN Reason: Nausea And Vomiting Physical examination: VITAL SIGNS: 98.3, 70, 16, blood pressure 127/62, 96% on room air GENERAL: Sitting up in bed, awake. EYES: Pupils equal. Conjunctiva normal. HEENT: External appearance of nose and ears normal, oral cavity grossly normal. NECK: JVD not raised; masses not palpable. HEART: First and second heart sounds are normal; no edema. LUNGS: Respiratory rate normal; clear to auscultation. ABDOMEN: Soft, nontender, liver spleen not palpable, no masses palpable. PSYCH: [Alert and oriented x3; mood and affect anxious l. Past medical history to include: Kidney stones INVESTIGATIONS, reviewed in the clinical context: Potassium 3.6 bun 58 creatinine 2.48 bicarb 24 Previous testing White count 9.3 hemoglobin 16.5 increased MCV platelets 237 potassium 4 sodium 127 bun 64 creatinine 10.35 bicarbonate 17 phosphorus 15.7 AST 151 ALT 148 albumin 5.6 amylase 98 lipase 450 ABDOMEN NO KIDNEY STONES LIVER IS HETEROGENEOUSLY HYPERECHOIC Renal ultrasound-unremarkable ASSESSMENT: -Acute severe kidney injury. Acute tubular necrosis secondary to hypotension/hypoperfusion -Hyperphosphatemia secondary to renal failure -Chronic alcoholism -Alcoholic hepatitis -Acute metabolic acidosis from renal failure -Chronic nicotine dependence patient cigarette smoker -Recreational marijuana use Plan: Renal function is improving. Seen by nephrology. Phosphate binders will be discontinued. Repeat labs in the morning. Discussed with the patient.
[2019-08-25 08:25] VITALS: BP 141/88; PULSE 74; RESP 20; TEMP 98
[2019-08-25] MEDS: NICOTINE 21MG/24HR PATCH TRANSDERM SCH (08:26)
[2019-08-25] MEDS: ENOXAPARIN 40 MG/0.4 ML SYRINGE SQ SCH (08:26)
--- NOTE | 2019-08-25 13:43 | P.PN ---
Subjective Progress Note Date: 08/25/19 Principal diagnosis: This is a 28-year-old male with hypertension for approximately one year who was on lisinopril and came in with hypotension and acute kidney injury. Patient st ated that he was a heavy drinker but had quit and his pressure probably went down because of this. Currently with hydration his creatinine is improved from 10-2.48. He is feeling fine and has no complaints at all. No dizziness chest pain shortness of breath nausea vomiting diarrhea abdominal pain. No tremors no evidence of any detox or withdrawal Objective - Vital Signs Vital signs: Vital Signs Temp 98.0 F 08/25/19 08:25 Pulse 74 08/25/19 08:25 Resp 20 08/25/19 08:25 BP 141/88 08/25/19 08:25 Pulse Ox 99 08/25/19 08:25 Intake & Output 08/24/19 08/25/19 08/25/19 18:59 06:59 18:59 Intake Total 888 296 Output Total 3600 Balance -2712 296 Intake: Oral 888 296 Output: Urine 3600 Uretheral (Onofre) 1050 Other: Voiding Method Toilet Toilet Urinal Urinal On examination is awake alert oriented comfortable HEENT exam no JVP neck supple no facial asymmetry Lungs are clear to auscultation good air entry bilaterally Heart sounds are unremarkable for any murmur rub gallop Abdomen soft nontender no organomegaly ascites masses Extremity exam was no edema Neurologically awake alert oriented - Labs CBC & Chem 7: 08/23/19 13:05 08/24/19 09:38 Labs: Abnormal Lab Results - Last 24 Hours (Table) 08/25/19 Range/Units 07:34 Phosphorus 2.0 L (2.5-4.5) mg/dL Microbiology - Last 24 Hours (Table) 08/24/19 00:30 Urine Culture - Final Urine,Clean Catch Assessment and Plan Assessment: Impression 1. Acute kidney injury from low blood pressure and lisinopril. Creatinine was 10.25 daily for yesterday and is 2.4 dated yesterday for today's labs are pending 2. Blood pressure controlled off of medication 3. History of alcohol abuse came off of it recently and therefore is doing much better and is not requiring any blood pressure medication 4. Mild hyponatremia improved secondary to acute kidney injury Recommendation 1. Patient can be discharged today if creatinine is checked today and is stable or better 2. No blood pressure medication but close follow-up in the office in 2 or 3 days time
[2019-08-25 14:07] LABS: African American GFR (CKD) >90 (>60 ml/min/1.73 sqM); Anion Gap 9 mmol/L; Carbon Dioxide 26 mmol/L (22-30); Chloride 102 mmol/L (98-107); Non-African American GFR(CKD) >90 (>60 ml/min/1.73 sqM); Potassium 4.2 mmol/L (3.5-5.1); Sodium 137 mmol/L (137-145)
== END 2019-08-25 15:16 | disposition home or self-care (01) ==
LOC: EC 12:26 → 4SSUR 14:28 → INTOOBSV 14:28 → UNDODISIN 08-25 15:16
PROVIDERS: ADMIT Hospitalist; ATTEND Hospitalist
DX: N17.0 Acute kidney failure with tubular necrosis (principal); E87.1 Hypo-osmolality and hyponatremia; E87.2 Acidosis; E83.39 Other disorders of phosphorus metabolism; E86.1 Hypovolemia; F10.20 Alcohol dependence, uncomplicated; F12.90 Cannabis use, unspecified, uncomplicated; F17.210 Nicotine dependence, cigarettes, uncomplicated; I10 Essential (primary) hypertension; K70.10 Alcoholic hepatitis without ascites; Z82.49 Family history of ischemic heart disease and other diseases of the circulatory system; Z87.442 Personal history of urinary calculi
CPT/HCPCS: 96360; 96361; 99285; 36415; 80051; 80053; 80048; 82150; 82565; 82550; 83690; 83735; 84100 ×2; 85025; 85610; 85730; 81001; 83520; 87086; 76770; G0378 ×3; S4990 ×3; J1650 ×3

== ENCOUNTER 2020-04-03 09:19 | Inpatient (IN) | payer OTHER ==
[2020-04-03] MEDS ORDERED: IBUPROFEN 200 MG TAB PO STA (09:52)
[2020-04-03] MEDS ORDERED: ACETAMINOPHEN TAB 500 MG TAB PO STA (09:52)
[2020-04-03] MEDS ORDERED: KETOROLAC 15 MG/ML 1 ML VIAL IVP STA (09:52)
[2020-04-03] MEDS ORDERED: SODIUM CHLORIDE 0.9% 500 ML 500 ML IV STA (09:52)
--- NOTE | 2020-04-03 09:56 | ED ---
General Adult HPI - General Chief complaint: Back Pain/Injury Stated complaint: Poss Kidney Stones Time Seen by Provider: 04/03/20 09:25 Source: patient, RN notes reviewed, old records reviewed Mode of arrival: ambulatory Limitations: no limitations - History of Present Illness Initial comments: This is a 29-year-old male who presents emergency Department complaining of left flank pain. Patient states he has a history of kidney stones and he states this feels like a kidney stone. Patient states been ongoing for 2 days. Patient denies any nausea vomiting. Patient denies any diarrhea. Patient denies any dysuria hematuria urinary frequency. Patient's states he was unaware that he had a fever until he got here. Patient denies any cough or shortness of breath. Patient denies any sore throat or ear pain. Patient denies any chest discomfort. Patient denies any skin rashes or lesions. - Related Data Home Medications Medication Instructions Recorded Confirmed No Known Home Medications 08/23/19 04/03/20 Allergies Allergy/AdvReac Type Severity Reaction Status Date / Time No Known Allergies Allergy Verified 04/03/20 11:04 Review of Systems ROS Statement: Those systems with pertinent positive or pertinent negative responses have been documented in the HPI. ROS Other: All systems not noted in ROS Statement are negative. Past Medical History Past Medical History: Hypertension History of Any Multi-Drug Resistant Organisms: None Reported Past Surgical History: Tonsillectomy Past Anesthesia/Blood Transfusion Reactions: No Reported Reaction Past Psychological History: No Psychological Hx Reported Smoking Status: Current every day smoker Past Alcohol Use History: Abuse, Daily Past Drug Use History: Marijuana - Past Family History Father Family Medical History: Myocardial Infarction ([place]) Additional Family Medical History / Comment(s): at age 4949 years old [place] Mother Family Medical History: Hypertension General Exam - General Exam Comments Initial Comments: GENERAL: Patient is well-developed and well-nourished. Patient is nontoxic and well- hydrated and is in mild distress. ENT: Neck is soft and supple. No significant lymphadenopathy is noted. Oropharynx is clear. Moist mucous membranes. Neck has full range of motion without eliciting any pain. EYES: The sclera were anicteric and conjunctiva were pink and moist. Extraocular movements were intact and pupils were equal round and reactive to light. Eyelids were unremarkable. PULMONARY: Unlabored respirations. Good breath sounds bilaterally. No audible rales rhonchi or wheezing was noted. CARDIOVASCULAR: There is a regular rate and rhythm without any murmurs gallops or rubs. ABDOMEN: Soft and nontender with normal bowel sounds. No palpable organomegaly was noted. There is no palpable pulsatile mass. SKIN: Skin is clear with no lesions or rashes and otherwise unremarkable. NEUROLOGIC: Patient is alert and oriented x3. Cranial nerves II through XII are grossly intact. Motor and sensory are also intact. Normal speech, volume and content. Symmetrical smile. MUSCULOSKELETAL: Normal extremities with adequate strength and full range of motion. LYMPHATICS: No significant lymphadenopathy is noted PSYCHIATRIC: Normal psychiatric evaluation. Limitations: no limitations Course Vital Signs 04/03/20 04/03/20 04/03/20 09:24 11:05 11:53 Temperature 100.8 F H Pulse Rate 115 H Respiratory 18 Rate Blood Pressure 192/137 187/124 163/105 O2 Sat by Pulse 97 Oximetry 04/03/20 11:55 Temperature 99.5 F Pulse Rate 115 H Respiratory Rate Blood Pressure O2 Sat by Pulse Oximetry Medical Decision Making - Medical Decision Making Chest x-ray shows no acute abnormality. Ultrasound showed a hydropic gallbladder but no signs of acute cholecystitis Patient's blood pressure was elevated so I gave the patient 20 mg hydralazine. I spoke with Dr. Bradley he agreed to admit the patient admitted the patient wrote admitting orders. - Lab Data Result diagrams: 04/03/20 09:54 04/03/20 09:54 Lab Results 04/03/20 04/03/20 04/03/20 Range/Units 09:54 09:54 09:54 WBC 7.7 (3.8-10.6) k/uL RBC 4.10 L (4.30-5.90) m/uL Hgb 15.3 (13.0-17.5) gm/dL Hct 44.7 (39.0-53.0) % MCV 109.1 H (80.0-100.0) fL MCH 37.3 H (25.0-35.0) pg MCHC 34.2 (31.0-37.0) g/dL RDW 13.2 (11.5-15.5) % Plt Count 232 (150-450) k/uL Neutrophils % 80 % Lymphocytes % 14 % Monocytes % 3 % Eosinophils % 1 % Basophils % 1 % Neutrophils # 6.2 (1.3-7.7) k/uL Lymphocytes # 1.1 (1.0-4.8) k/uL Monocytes # 0.2 (0-1.0) k/uL Eosinophils # 0.1 (0-0.7) k/uL Basophils # 0.1 (0-0.2) k/uL Macrocytosis Moderate Sodium 133 L (137-145) mmol/L Potassium 3.7 (3.5-5.1) mmol/L Chloride 96 L (98-107) mmol/L Carbon Dioxide 26 (22-30) mmol/L Anion Gap 11 mmol/L BUN 11 (9-20) mg/dL Creatinine 0.70 (0.66-1.25) mg/dL Est GFR (CKD-EPI)AfAm >90 (>60 ml/min/1.73 sqM) Est GFR (CKD-EPI)NonAf >90 (>60 ml/min/1.73 sqM) Glucose 132 H (74-99) mg/dL Calcium 9.4 (8.4-10.2) mg/dL Magnesium 1.4 L (1.6-2.3) mg/dL Total Bilirubin 2.6 H (0.2-1.3) mg/dL AST 936 H (17-59) U/L ALT 351 H (4-49) U/L Alkaline Phosphatase 261 H (38-126) U/L Total Protein 8.4 H (6.3-8.2) g/dL Albumin 4.9 (3.5-5.0) g/dL Amylase 56 (30-110) U/L Lipase 129 (23-300) U/L Urine Color Yellow Urine Appearance Clear (Clear) Urine pH 6.5 (5.0-8.0) Ur Specific [place] 1.025 (1.001-1.035) Urine Protein 1+ H (Negative) Urine Glucose (UA) Negative (Negative) Urine Ketones 1+ H (Negative) Urine Blood Negative (Negative) Urine Nitrite Negative (Negative) Urine Bilirubin 1+ H (Negative) Urine Urobilinogen 3.0 (<2.0) mg/dL Ur Leukocyte Esterase Negative (Negative) Urine RBC 1 (0-5) /hpf Urine WBC 1 (0-5) /hpf Ur Squamous Epith Cells <1 (0-4) /hpf Hyaline Casts 3 H (0-2) /lpf Urine Mucus Many H (None) /hpf Serum Alcohol <10 mg/dL Disposition Clinical Impression: Alcohol abuse, Hepatitis, Hypertensive urgency Disposition: ADMITTED IP TO THIS HOSP Referrals: Carlos Silva MD [Primary Care Provider] - 1-2 days Time of Disposition: 12:02
[2020-04-03 10:11] LABS: Basophils # (A) 0.1 k/uL (0-0.2); Basophils % (A) 1 %; Eosinophils # (A) 0.1 k/uL (0-0.7); Eosinophils % (A) 1 %; HCT 44.7 % (39.0-53.0); HGB 15.3 gm/dL (13.0-17.5); Lymphocytes # (A) 1.1 k/uL (1.0-4.8); Lymphocytes % (A) 14 %; MCH 37.3 pg (25.0-35.0); MCHC 34.2 g/dL (31.0-37.0); MCV 109.1 fL (80.0-100.0); Macrocytosis Moderate; Mean Platelet Volume 6.9; Monocytes # (A) 0.2 k/uL (0-1.0); Monocytes % (A) 3 %; Neutrophils # (A) 6.2 k/uL (1.3-7.7); Neutrophils % (A) 80 %; Platelet Count 232 k/uL (150-450); RDW 13.2 % (11.5-15.5); WBC 7.7 k/uL (3.8-10.6)
[2020-04-03 10:24] LABS: Appearance,Urine Clear (Clear); Bilirubin,Urine 1+ (Negative); Blood,Urine Negative (Negative); Color,Urine Yellow; Glucose,Urine (UA) Negative (Negative); Hyaline Casts,Urine 3 /lpf (0-2); Ketones,Urine 1+ (Negative); Leukocyte Esterase,Urine Negative (Negative); Mucus,Urine Many /hpf; Nitrite,Urine Negative (Negative); PH, Urine 6.5 (5.0-8.0); Protein,Urine 1+ (Negative); RBC,Urine 1 /hpf (0-5); Specific Gravity,Urine 1.025 (1.001-1.035); Squamous Epithelial Cell,Urine <1 /hpf (0-4); WBC,Urine 1 /hpf (0-5)
--- NOTE | 2020-04-03 10:32 | XR ---
EXAMINATION TYPE: XR chest 2V DATE OF EXAM: 04/03/2020 COMPARISON: None HISTORY: 29 year-old male shortness of breath, difficulty breathing TECHNIQUE: PA and lateral views FINDINGS: Heart normal size. Aorta and pelvic vasculature within normal limits. Mild central peribronchial cuff ing. No consolidation or pleural effusion. IMPRESSION: Mild central peribronchial cuffing could reflect bronchitis or asthma. No focal infiltrate.
[2020-04-03 10:34] LABS: ALT 351 U/L (4-49); African American GFR (CKD) >90 (>60 ml/min/1.73 sqM); Albumin 4.9 g/dL (3.5-5.0); Alcohol <10 mg/dL; Alkaline Phosphatase 261 U/L (38-126); Amylase 56 U/L (30-110); Anion Gap 11 mmol/L; Blood Urea Nitrogen 11 mg/dL (9-20); Calcium 9.4 mg/dL (8.4-10.2); Carbon Dioxide 26 mmol/L (22-30); Chloride 96 mmol/L (98-107); Glucose 132 mg/dL (74-99); Magnesium 1.4 mg/dL (1.6-2.3); Non-African American GFR(CKD) >90 (>60 ml/min/1.73 sqM); Potassium 3.7 mmol/L (3.5-5.1); Sodium 133 mmol/L (137-145); Total Bilirubin 2.6 mg/dL (0.2-1.3); Total Protein 8.4 g/dL (6.3-8.2)
[2020-04-03 10:46] LABS: AST 936 U/L (17-59)
[2020-04-03] MEDS ORDERED: MAGNESIUM SULFATE-D5W PMX 1 GM in DEXTROSE/WATER 1 100ML.BAG IVPB ONE (10:52)
[2020-04-03] MEDS ORDERED: hydrALAZINE HCL 20 MG/ML 1 ML VIAL IVP STA (10:58)
[2020-04-03] MEDS ORDERED: SODIUM CHLORIDE 0.9% 1,000 ML IV ONE ×2 (10:59→12:03)
--- NOTE | 2020-04-03 11:25 | US ---
EXAMINATION TYPE: US gallbladder DATE OF EXAM: 04/03/2020 COMPARISON: None CLINICAL HISTORY: 29-year-old male Elevated liver enzymes right upper quadrant abdominal pain. RUQ pa in, abn labs TECHNIQUE: Multiple sonographic images of the right upper quadrant are obtained. FINDINGS: EXAM MEASUREMENTS: Liver Length: 21.7 cm Gallbladder Wall: 0.2 cm CBD: 0.5 cm Right Kidney: 11.3 x 6.0 x 3.4 cm Pancreas: Body and tail obscured by bowel gas Liver: Increased attenuation, decreased visualization of vessels suggestive of fatty infiltrate. En larged in size. Coarse. Echogenic. Gallbladder: No stones visualized. Mildly hydropic measuring 11.1 cm long and 4.5 cm wide. Evidence for sonographic Johnston's sign: neg CBD: Limited visualization, a small portion is seen measuring 4.8 mm, within normal limits. Right Kidney: No hydronephrosis. IMPRESSION: 1. Hepatomegaly (21.7 cm) with severe hepatic steatosis. Correlate with LFTs, lipid profile, and cahse ent risk factors. 2. Mildly hydropic gallbladder probably relating to fasting state. Clinically correlate. No gallstone s or ancillary findings of acute cholecystitis.
[2020-04-03] MEDS ORDERED: LORazepam 2 MG/ML INJ IV PRN ×3 (12:03)
[2020-04-03] MEDS ORDERED: THIAMINE 100 MG/ML 2 ML VIAL IM STA (12:03)
[2020-04-03] MEDS ORDERED: LABETALOL 5 MG/ML VIAL MDV IVP STA (13:06)
[2020-04-03] MEDS ORDERED: LORazepam 2 MG/ML INJ IV STA (13:07)
[2020-04-03] MEDS: NICOTINE 14MG/24HR PATCH TRANSDERM SCH (14:48)
[2020-04-03] MEDS: THIAMINE 100 MG TAB PO SCH (16:55)
[2020-04-03 21:07] LABS: Hepatitis A Antibody IgM Non-Reactive (Non-Reactive); Hepatitis B Core IgM Non-Reactive (Non-Reactive); Hepatitis B Surface Antigen Non-Reactive (Non-Reactive); Hepatitis C IgG Antibody Non-Reactive (Non-Reactive)
[2020-04-03] MEDS: diazePAM 5 MG TAB PO SCH (21:52)
[2020-04-03] MEDS: METOPROLOL TARTRATE 12.5 MG TAB PO SCH (21:52)
[2020-04-04] MEDS: THIAMINE 100 MG TAB PO SCH (06:25)
[2020-04-04] MEDS: NICOTINE 14MG/24HR PATCH TRANSDERM SCH (08:31)
[2020-04-04] MEDS: METOPROLOL TARTRATE 12.5 MG TAB PO SCH (08:31)
[2020-04-04] MEDS: diazePAM 5 MG TAB PO SCH (08:31)
[2020-04-04 09:24] LABS: Basophils # (A) 0.1 k/uL (0-0.2); Basophils % (A) 1 %; Eosinophils # (A) 0.1 k/uL (0-0.7); Eosinophils % (A) 2 %; HCT 42.7 % (39.0-53.0); HGB 14.8 gm/dL (13.0-17.5); Lymphocytes # (A) 1.2 k/uL (1.0-4.8); Lymphocytes % (A) 18 %; MCH 38.6 pg (25.0-35.0); MCHC 34.7 g/dL (31.0-37.0); MCV 111.3 fL (80.0-100.0); Macrocytosis Marked; Mean Platelet Volume 7.3; Monocytes # (A) 0.4 k/uL (0-1.0); Monocytes % (A) 5 %; Neutrophils # (A) 4.7 k/uL (1.3-7.7); Neutrophils % (A) 72 %; Platelet Count 187 k/uL (150-450); RBC 3.83 m/uL (4.30-5.90); RDW 13.6 % (11.5-15.5); WBC 6.5 k/uL (3.8-10.6)
[2020-04-04 09:32] LABS: Potassium 3.7 mmol/L (3.5-5.1)
[2020-04-04 09:33] LABS: ALT 320 U/L (4-49); AST 678 U/L (17-59); African American GFR (CKD) >90 (>60 ml/min/1.73 sqM); Alkaline Phosphatase 224 U/L (38-126); Anion Gap 11 mmol/L; Blood Urea Nitrogen <2 mg/dL (9-20); Calcium 9.6 mg/dL (8.4-10.2); Carbon Dioxide 25 mmol/L (22-30); Chloride 98 mmol/L (98-107); Glucose 127 mg/dL (74-99); Non-African American GFR(CKD) >90 (>60 ml/min/1.73 sqM); Sodium 134 mmol/L (137-145); Total Protein 8.4 g/dL (6.3-8.2)
[2020-04-04 09:35] VITALS: RESP 18; TEMP 98.6
[2020-04-04 09:35] LABS: INR 1.2 (<1.2); Prothrombin Time 12.3 sec (9.0-12.0)
--- NOTE | 2020-04-04 09:51 | P.CONS ---
History of Present Illness - Reason for Consult Consult date: 04/03/20 Elevated liver enzymes Requesting physician: Ge Bradley - Chief Complaint Flank pain - History of Present Illness 29-year-old male with a known history of alcohol abuse who presented to the hospital complaining of left flank plan. The patient reports the pain had been present for approximately 2 days and he was concerned that it may be related to kidney stones as he has a history of nephrolithiasis in the past. He denied any urinary symptoms with no dysuria or hematuria. On presentation to the hospital he was found to have markedly elevated liver enzymes with total bilirubin 2.9, alkaline phosphatase 261, AST 936 and ALT 351. Ultrasound of the abdomen was s ignificant for hepatomegaly and marked steatosis. On questioning the patient reports a long-standing history of alcohol abuse. He previously gone to rehab but state they're only 2 days before leaving. His last drink was 1 pint of liquor 2 days prior to presentation. He denies any nausea or vomiting, or change in bowel movements. No history of viral hepatitis or IV drug use. He denies any ascites, history of GI bleed or encephalopathy. Other laboratory evaluation significant for WBC 7.7, hemoglobin 15.3 and platelet count of 232,000. Review of Systems REVIEW OF SYSTEMS: CONSTITUTIONAL: Denies any fevers, chills, weight change or fatigue. CARDIOVASCULAR: Denies any chest pain, palpitations high or low blood pressures RESPIRATORY: Denies any shortness of breath, hemoptysis or cough. GENITOURINARY: No dysuria or hematuria. MUSCULOSKELETAL: No weakness reported. SKIN: Denies any new rashes or lesions, jaundice or pallor. PSYCHIATRIC: Denies any depression or anxiety, does have a known history of alcohol abuse. NEUROLOGY: Denies headache, denies any new focal deficits. EARS/NOSE/THROAT: No recent hearing change, congestion, nasal discharge or sore throat. EYES: No pain in eyes, discharge or change in vision. GASTROINTESTINAL: As per HPI. Past Medical History Past Medical History: Hypertension History of Any Multi-Drug Resistant Organisms: None Reported Past Surgical History: Tonsillectomy Past Anesthesia/Blood Transfusion Reactions: No Reported Reaction Past Psychological History: No Psychological Hx Reported Smoking Status: Current every day smoker Past Alcohol Use History: Abuse, Daily Past Drug Use History: Marijuana - Past Family History Father Family Medical History: Myocardial Infarction ([place]) Additional Family Medical History / Comment(s): at age 4949 years old [place] Mother Family Medical History: Hypertension Medications and Allergies Home Medications Medication Instructions Recorded Confirmed Type No Known Home Medications 08/23/19 04/03/20 History Allergies Allergy/AdvReac Type Severity Reaction Status Date / Time No Known Allergies Allergy Verified 04/03/20 11:04 Physical Exam Vitals: Vital Signs Temp Pulse Resp BP Pulse Ox 04/03/20 14:10 161/97 04/03/20 13:20 112 H 185/116 04/03/20 12:27 112 H 18 171/111 99 04/03/20 11:55 99.5 F 115 H 04/03/20 11:53 163/105 04/03/20 11:05 187/124 04/03/20 09:24 100.8 F H 115 H 18 192/137 97 Intake and Output 04/02/20 04/03/20 04/03/20 22:59 06:59 14:59 Other: Voiding Method Toilet Weight 77.111 kg On physical examination, patient appears comfortable in no apparent distress. HEAD: Normocephalic, atraumatic. EYES: No scleral icterus. No conjunctival injection. MOUTH: No lesions, tongue midline. NECK: Trachea midline, no gross abnormalities. CHEST: Clear to auscultation with no wheezing or rhonchi appreciated. HEART: Regular rate and rhythm. ABDOMEN: Soft, nontender to palpation. Bowel sounds are positive. No organomegaly. No guarding or rigidity. EXTREMITIES: No pedal edema. SKIN: No rashes, no jaundice. NEUROLOGIC: Alert and oriented x3 tremulousness with no asterixis. No focal deficits. Results CBC & Chem 7: 04/04/20 08:45 04/04/20 08:45 Labs: Abnormal Lab Results - Last 24 Hours (Table) 04/03/20 04/03/20 04/03/20 Range/Units 09:54 09:54 09:54 RBC 4.10 L (4.30-5.90) m/uL MCV 109.1 H (80.0-100.0) fL MCH 37.3 H (25.0-35.0) pg Sodium 133 L (137-145) mmol/L Chloride 96 L (98-107) mmol/L Glucose 132 H (74-99) mg/dL Magnesium 1.4 L (1.6-2.3) mg/dL Total Bilirubin 2.6 H (0.2-1.3) mg/dL AST 936 H (17-59) U/L ALT 351 H (4-49) U/L Alkaline Phosphatase 261 H (38-126) U/L Total Protein 8.4 H (6.3-8.2) g/dL Urine Protein 1+ H (Negative) Urine Ketones 1+ H (Negative) Urine Bilirubin 1+ H (Negative) Hyaline Casts 3 H (0-2) /lpf Urine Mucus Many H (None) /hpf US - abdomen: report reviewed (Ultrasound of the abdomen with findings of hepatic steatosis and hepatomegaly) Assessment and Plan (1) Alcoholic hepatitis without ascites Narrative/Plan: 21-year-old female with a known history of alcohol abuse presenting for left flank pain concerned over possible nephrolithiasis due to a history of such. Patient reports long-standing history of alcohol use and elevated liver enzymes. He denies any signs or symptoms of decompensated liver disease with no e ncephalopathy, prior GI bleeds or ascites. Patient found to have markedly elevated liver enzymes consistent with alcoholic hepatitis on presentation with bilirubin 2.9, alkaline phosphatase 261, AST 936 and ALT 351 with ultrasound of the abdomen showing hepatomegaly and steatosis. Viral hepatitis panel testing negative. Current Visit: Yes Status: Acute Code(s): K70.10 - ALCOHOLIC HEPATITIS WITHOUT ASCITES SNOMED Code(s): 982259532 (2) Alcohol abuse Current Visit: Yes Status: Acute Code(s): F10.10 - ALCOHOL ABUSE, UNCOMPLICATED SNOMED Code(s): 06605474 (3) Hyperbilirubinemia Current Visit: No Status: Acute Code(s): E80.6 - OTHER DISORDERS OF BILIRUBIN METABOLISM SNOMED Code(s): 00701288 Plan: Supportive care Okay for diet Continue to monitor CBC, BMP, LFTs and INR Continue to monitor for signs or symptoms of alcohol withdrawal, [facility] protocol Alcohol abstinence Full liver serologies ordered to rule out any underlying causes of elevated liver enzymes, however likely related to alcoholic hepatitis Thank you for allowing us to be decided in the care of the patient we will continue to follow
[2020-04-04] MEDS ORDERED: LACTULOSE 20 GM/30 ML CUP PO SCH (10:15)
--- NOTE | 2020-04-04 13:10 | P.PN ---
Subjective Progress Note Date: 04/04/20 Principal diagnosis: Elevated liver enzymes, EtOH abuse 29-year-old male with a known history of alcohol abuse who presented to the hospital complaining of left flank pain and was noted to have abated LFTs. Today the patient states he is having any abdominal pain, nausea, or vomiting. He is alert and oriented 3. Hepatitis panel is negative, liver serologies pending. Today's bilirubin is 3.0, alkaline phosphatase 224, ALT 678, AST 320, and ammonia is 46, INR 1.2. States he is having normal bowel movements with no melena or rectal bleeding. Objective - Vital Signs Vital signs: Vital Signs Temp 98.6 F 04/04/20 08:00 Pulse 100 04/04/20 08:00 Resp 18 04/04/20 08:00 BP 161/118 04/04/20 08:00 Pulse Ox 98 04/04/20 08:00 Intake & Output 04/03/20 04/04/20 04/04/20 18:59 06:59 18:59 Intake Total 300 1200 240 Output Total 200 Balance 100 1200 240 Weight 77.111 kg 76.3 kg Intake: Oral 300 1200 240 Output: Urine 200 Other: Voiding Method Toilet Toilet Toilet # Voids 2 1 - Exam General appearance: The patient is alert, oriented, in no acute distress. HET: Head is normocephalic and atraumatic. Conjunctiva pink. Sclera ancteric. Neck: Supple without lymphadenopathy. Abdomen: Soft, nontender, nondistended with bowel sounds. No guarding or rigidity. Extremities: Normal skin color and turgor. No pedal edema Neurological: No focal deficits. Alert and oriented 3. - Labs CBC & Chem 7: 04/04/20 08:45 04/04/20 08:45 Labs: Abnormal Lab Results - Last 24 Hours (Table) 04/04/20 04/04/20 04/04/20 Range/Units 08:45 08:45 08:45 RBC 3.83 L (4.30-5.90) m/uL MCV 111.3 H (80.0-100.0) fL MCH 38.6 H (25.0-35.0) pg Macrocytosis Marked A PT 12.3 H (9.0-12.0) sec INR 1.2 H (<1.2) Sodium 134 L (137-145) mmol/L BUN <2 L (9-20) mg/dL Creatinine 0.64 L (0.66-1.25) mg/dL Glucose 127 H (74-99) mg/dL Total Bilirubin 3.0 H (0.2-1.3) mg/dL AST 678 H (17-59) U/L ALT 320 H (4-49) U/L Alkaline Phosphatase 224 H (38-126) U/L Ammonia (<30) umol/L Total Protein 8.4 H (6.3-8.2) g/dL 04/04/20 Range/Units 08:45 RBC (4.30-5.90) m/uL MCV (80.0-100.0) fL MCH (25.0-35.0) pg Macrocytosis PT (9.0-12.0) sec INR (<1.2) Sodium (137-145) mmol/L BUN (9-20) mg/dL Creatinine (0.66-1.25) mg/dL Glucose (74-99) mg/dL Total Bilirubin (0.2-1.3) mg/dL AST (17-59) U/L ALT (4-49) U/L Alkaline Phosphatase (38-126) U/L Ammonia 46 H (<30) umol/L Total Protein (6.3-8.2) g/dL Assessment and Plan (1) Alcohol abuse Narrative/Plan: 21-year-old female with a known history of alcohol abuse presenting for left flank pain concerned over possible nephrolithiasis due to a history of such. Patient reports long-standing history of alcohol use and elevated liver enzymes. He denies any signs or symptoms of decompensated liver disease with no encephalopathy, prior GI bleeds or ascites. Patient found to have markedly elevated liver enzymes consistent with alcoholic hepatitis on presentation with bilirubin 2.9, alkaline phosphatase 261, AST 936 and ALT 351 with ultrasound of the abdomen showing hepatomegaly and steatosis. Viral hepatitis panel testing negative. Liver serologies pending. Current Visit: Yes Status: Acute Code(s): F10.10 - ALCOHOL ABUSE, UNCOMPLICATED SNOMED Code(s): 28689276 (2) Alcoholic hepatitis without ascites Current Visit: Yes Status: Acute Code(s): K70.10 - ALCOHOLIC HEPATITIS WITHOUT ASCITES SNOMED Code(s): 379009478 (3) Hyperbilirubinemia Current Visit: No Status: Acute Code(s): E80.6 - OTHER DISORDERS OF BILIRUBIN METABOLISM SNOMED Code(s): 02747790 Plan: 1. Supportive care 2. Diet tolerated 3. Continue to monitor CBC, LFTs and INR 4. Continue to monitor for signs or symptoms of alcohol withdrawal, [facility] protocol 5. Alcohol abstinence 6. Full liver serologies ordered to rule out any other underlying causes of elevated liver enzymes, pending full results. Hepatitis panel was negative. Likely all related to alcoholic hepatitis 7. We will continue to follow. Patient will need outpatient follow-up in our office. The impression and plan of care has been dictated as directed. I performed a history and examination of this patient, discussed the same with the dictator. I agree with the dictator's note ,documented as a scribe. Any additional findings or plans will be noted.
[2020-04-04 14:01] VITALS: BP 157/100; PULSE 90
[2020-04-04 15:41] LABS: % Iron Saturation 75.57 (15.00-50.00); Iron 198 ug/dL (65-175); Total Iron Binding Capacity 262 ug/dL (228-460)
[2020-04-04 17:02] LABS: Alpha Fetoprotein, Tumor Mkr 8.7 ng/mL (0.0-7.9)
--- NOTE | 2020-04-04 22:18 | P.HPIM ---
History of Present Illness H&P Date: 04/04/20 Chief Complaint: Right flank pain History of presenting complaint: This is a 23 patient to follow the Dr[address] Silva. Patient long-standing alcohol problem. Has previously had alcohol withdrawal tremors, alcoholic hepatitis severe kidney injury metabolic encephalopathy. Patient also smokes and does marijuana. Patient presented to ER with pain in the right flank area. No na usea vomiting. No fever no chills. Patient's last drink was about 2 days prior to coming in. Normally has a pint of mixed drinks. Also is a smoker. Patient is found to have a greatly elevated LFTs. Acute hepatitis panel was ordered. GI was consulted. Put on a CIWA scale. Blood pressure running bit of the high side. [place] to be from alcohol withdrawal syndrome. Started on Valium. Review of systems: GEN.: None EYES: None HEENT: None NECK: None RESPIRATORY: None CARDIOVASCULAR: None GASTROINTESTINAL: None GENITOURINARY: None MUSCULOSKELETAL: None LYMPHATICS: None HEMATOLOGICAL: None PSYCHIATRY: Anxious NEUROLOGICAL: None Past medical history to include: Hypertension, nephrolithiasis, alcohol use disorder, alcohol withdrawal tremors, alcoholic hepatitis, Social history: This is mother. Works as a [employer] at [employer]. Smokes a pack a day. Is about to 3 joints of marijuana daily. Drinks up to a pint of mixed alcoholic drinks frequency variable no quite often. Physical examination: VITAL SIGNS: 98.6, 100, 18, 161/118, 98% room air GENERAL: BMI 22.2, sitting on bed, cushingoid facies slightly anxious flushed. EYES: Pupils equal. Conjunctiva normal. HEENT: External appearance of nose and ears normal, oral cavity grossly normal. NECK: JVD not raised; masses not palpable. HEART: First and second heart sounds are normal; no edema. LUNGS: Respiratory rate normal; clear to auscultation. ABDOMEN: Soft, nontender, liver spleen not palpable, no masses palpable. PSYCH: Alert and oriented x3; mood and affect anxiousl. NEUROLOGICAL: Cranial nerves grossly intact; no facial asymmetry, power and sensation grossly intact. LYMPHATICS: No lymph nodes palpable in the axilla and neck INVESTIGATIONS, reviewed in the clinical context: White count 6.5 hemoglobin 14.8 platelets 187 pro time 12.3 potassium 3.7 crit 0.64 AST 936 ALT 350 1 repeat 678 and 320 Tumor marker AFP 8.7 Serum acetaminophen less than 10 serum alcohol less than 10 Hepatitis A IgM antibody/hepatitis B surface antigen/hepatitis B core IgM antibody/hepatitis C IgG antibody-all nonreactive A cane a screen negative Ultrasound of her abdomen and enlarged course increased attenuation Assessment: -Likely acute on chronic alcoholic hepatitis. Other causes of hepatitis to be ruled out. -Alcohol use disorder -Chronic nicotine dependence patient cigarette smoker -Recreational marijuana use -Macrocytosis from alcoholism -Prolonged pro time from chronic liver disease -Alcohol withdrawal disorder Plan: GI was consulted. They ordered some old blood work. Patient was put on Valium and Lopressor. CIWA scale. Care was discussed. Patient is stating that he had to go to a this afternoon and was relieved. Pain to the patient that is important that he stays in the hospital. Past Medical History Past Medical History: Hypertension Additional Past Medical History / Comment(s): Nephrolithiasis, ETOH abuse with past withdrawal tremors, past alcoholic hepatitis/acute severe kidney injury/hyperphosphatemia/acute metabolic encephalopathy from renal failure. History of Any Multi-Drug Resistant Organisms: None Reported Past Surgical History: Tonsillectomy Past Anesthesia/Blood Transfusion Reactions: No Reported Reaction Past Psychological History: No Psychological Hx Reported Smoking Status: Current every day smoker Past Alcohol Use History: Abuse, Daily Past Drug Use History: Marijuana - Past Family History Father Family Medical History: Myocardial Infarction ([place]) Additional Family Medical History / Comment(s): at age 4949 years old [place] Mother Family Medical History: Hypertension Medications and Allergies Home Medications Medication Instructions Recorded Confirmed Type No Known Home Medications 08/23/19 04/03/20 History Allergies Allergy/AdvReac Type Severity Reaction Status Date / Time No Known Allergies Allergy Verified 04/03/20 11:04 Physical Exam Vitals: Vital Signs Temp Pulse Pulse Resp BP BP BP 04/04/20 08:00 98.6 F 100 18 161/118 04/04/20 04:00 98.9 F 96 16 160/103 04/03/20 23:18 98 16 04/03/20 23:17 99.0 F 98 16 163/102 04/03/20 21:15 178/102 04/03/20 20:00 98.7 F 117 H 18 156/107 04/03/20 17:00 115 H 16 167/92 04/03/20 15:00 99.0 F 117 H 16 166/107 04/03/20 14:49 99.7 F H 109 H 18 149/96 04/03/20 14:10 161/97 04/03/20 13:20 112 H 185/116 04/03/20 12:27 112 H 18 171/111 04/03/20 11:55 99.5 F 115 H 04/03/20 11:53 163/105 04/03/20 11:05 187/124 Pulse Ox 04/04/20 08:00 98 04/04/20 04:00 98 04/03/20 23:18 04/03/20 23:17 98 04/03/20 21:15 04/03/20 20:00 98 04/03/20 17:00 97 04/03/20 15:00 97 04/03/20 14:49 99 04/03/20 14:10 04/03/20 13:20 04/03/20 12:27 99 04/03/20 11:55 04/03/20 11:53 04/03/20 11:05 Intake and Output 04/03/20 04/04/20 04/04/20 22:59 06:59 14:59 Intake Total 600 600 Balance 600 600 Intake: Oral 600 600 Other: Voiding Method Toilet Toilet Toilet # Voids 1 2 Weight 76.3 kg Results CBC & Chem 7: 04/04/20 08:45 04/04/20 08:45 Labs: Abnormal Lab Results - Last 24 Hours (Table) 04/03/20 04/03/20 04/04/20 Range/Units 09:54 09:54 08:45 RBC 3.83 L (4.30-5.90) m/uL MCV 111.3 H (80.0-100.0) fL MCH 38.6 H (25.0-35.0) pg Macrocytosis Marked A PT (9.0-12.0) sec INR (<1.2) Sodium 133 L (137-145) mmol/L Chloride 96 L (98-107) mmol/L BUN (9-20) mg/dL Creatinine (0.66-1.25) mg/dL Glucose 132 H (74-99) mg/dL Magnesium 1.4 L (1.6-2.3) mg/dL Total Bilirubin 2.6 H (0.2-1.3) mg/dL AST 936 H (17-59) U/L ALT 351 H (4-49) U/L Alkaline Phosphatase 261 H (38-126) U/L Ammonia (<30) umol/L Total Protein 8.4 H (6.3-8.2) g/dL Urine Protein 1+ H (Negative) Urine Ketones 1+ H (Negative) Urine Bilirubin 1+ H (Negative) Hyaline Casts 3 H (0-2) /lpf Urine Mucus Many H (None) /hpf 04/04/20 04/04/20 04/04/20 Range/Units 08:45 08:45 08:45 RBC (4.30-5.90) m/uL MCV (80.0-100.0) fL MCH (25.0-35.0) pg Macrocytosis PT 12.3 H (9.0-12.0) sec INR 1.2 H (<1.2) Sodium 134 L (137-145) mmol/L Chloride (98-107) mmol/L BUN <2 L (9-20) mg/dL Creatinine 0.64 L (0.66-1.25) mg/dL Glucose 127 H (74-99) mg/dL Magnesium (1.6-2.3) mg/dL Total Bilirubin 3.0 H (0.2-1.3) mg/dL AST 678 H (17-59) U/L ALT 320 H (4-49) U/L Alkaline Phosphatase 224 H (38-126) U/L Ammonia 46 H (<30) umol/L Total Protein 8.4 H (6.3-8.2) g/dL Urine Protein (Negative) Urine Ketones (Negative) Urine Bilirubin (Negative) Hyaline Casts (0-2) /lpf Urine Mucus (None) /hpf Thrombosis Risk Factor Assmnt - Choose All That Apply Any of the Below Risk Factors Present?: No Other Risk Factors: No Other congenital or acquired thrombophilia - If yes, enter type in comment: No Thrombosis Risk Factor Assessment Level: Very Low Risk
--- NOTE | 2020-04-04 22:20 | P.DS ---
Providers Date of admission: 04/03/20 12:03 Expected date of discharge: 04/04/20 Attending physician: Ge Bradley Consults: 04/03/20 12:03 Consult Physician Urgent Consulting Provider: Saran Maddox Consult Reason/Comments: Hepatitis Do you want consulting provider notified?: Yes Primary care physician: [facility] Course: Chief Complaint: Right flank pain History of presenting complaint: This is a 23 patient to follow the Dr[address] Silva. Patient long-standing alcohol problem. Has previously had alcohol withdrawal tremors, alcoholic hepatitis severe kidney injury metabolic encephalopathy. Patient also smokes and does marijuana. Patient presented to ER with pain in the right flank area. No nausea vomiting. No fever no chills. Patient's last drink was about 2 days prior to coming in. Normally has a pint of mixed drinks. Also is a smoker. Patient is found to have a greatly elevated LFTs. Acute hepatitis panel was ordered. GI was consulted. Put on a CIWA scale. Blood pressure running bit of the high side. [place] to be from alcohol withdrawal syndrome. Started on Valium. Acute hepatitis panel was negative. And it was negative. Patient was seen by Dr. Simeon from GI. LFTs were up. Later this soft and patient decided to leave AMA. And walked out of the hospital Consultation: Dr. Simeon from GI Physical examination: VITAL SIGNS: 98.6, 90, 18, 1 57 x 100, 99% room air GENERAL: BMI 22.2, sitting on bed, cushingoid facies slightly anxious flushed. EYES: Pupils equal. Conjunctiva normal. HEENT: External appearance of nose and ears normal, oral cavity grossly normal. NECK: JVD not raised; masses not palpable. HEART: First and second heart sounds are normal; no edema. LUNGS: Respiratory rate normal; clear to auscultation. ABDOMEN: Soft, nontender, liver spleen not palpable, no masses palpable. PSYCH: Alert and oriented x3; mood and affect anxiousl. NEUROLOGICAL: Cranial nerves grossly intact; no facial asymmetry, power and sensation grossly intact. Mild tremors INVESTIGATIONS, reviewed in the clinical context: White count 6.5 hemoglobin 14.8 platelets 187 pro time 12.3 potassium 3.7 crit 0.64 AST 936 ALT 350 1 repeat 678 and 320 Tumor marker AFP 8.7 Serum acetaminophen less than 10 serum alcohol less than 10 Hepatitis A IgM antibody/hepatitis B surface antigen/hepatitis B core IgM antibody/hepatitis C IgG antibody-all nonreactive A cane a screen negative Ultrasound of her abdomen and enlarged course increased attenuation Assessment: -Likely acute on chronic alcoholic hepatitis. Other causes of hepatitis to be ruled out. -Alcohol use disorder -Chronic nicotine dependence patient cigarette smoker -Recreational marijuana use -Macrocytosis from alcoholism -Prolonged pro time from chronic liver disease -Alcohol withdrawal disorder Disposition: Patient left AMA Patient Condition at Discharge: Undetermined Plan - Discharge Summary Discharge Rx Participant: No New Discharge Prescriptions: No Action No Known Home Medications Discharge Medication List No Known Home Medications 08/23/19 [History] Follow up Appointment(s)/Referral(s): Carlos Silva MD [Primary Care Provider] - 1-2 days Saran Maddox MD [STAFF PHYSICIAN] - 2 Weeks Discharge Disposition: Left Against Medical Advice
[2020-04-05 10:44] LABS: Ceruloplasmin 19.7 mg/dL (20.0-60.0)
[2020-04-07 14:34] LABS: Liver/Kidney Microsome Antibod 1.2 UNITS (<=20)
== END 2020-04-04 13:43 | disposition left against medical advice (07) | DRG 433 ==
LOC: EC 09:19 → 3SCARD 12:03
PROVIDERS: ADMIT Hospitalist; ATTEND Hospitalist
DX: K70.10 Alcoholic hepatitis without ascites (principal); K82.1 Hydrops of gallbladder; F10.230 Alcohol dependence with withdrawal, uncomplicated; I16.0 Hypertensive urgency; I10 Essential (primary) hypertension; F17.210 Nicotine dependence, cigarettes, uncomplicated; Y90.0 Blood alcohol level of less than 20 mg/100 ml; D75.89 Other specified diseases of blood and blood-forming organs; Z87.442 Personal history of urinary calculi; Z82.49 Family history of ischemic heart disease and other diseases of the circulatory system
CPT/HCPCS: 36415; 71046; 76705; 80053; 80074; 80320; 80329; 81001; 82103; 82105; 82140; 82150; 82390; 83516; 83540; 83550; 83690; 83735; 85025; 85610; 86038; 86376; 96361; 96365; 96372; 96375; 99285

== ENCOUNTER 2020-04-05 20:11 | Emergency (ER) | payer OTHER ==
[2020-04-05] MEDS ORDERED: SODIUM CHLORIDE 0.9% 1,000 ML IV STA ×2 (20:40)
[2020-04-05] MEDS ORDERED: hydrALAZINE HCL 20 MG/ML 1 ML VIAL IVP STA (20:41)
[2020-04-05] MEDS ORDERED: LABETALOL 5 MG/ML VIAL MDV IVP STA (20:41)
[2020-04-05] MEDS ORDERED: LORazepam 2 MG/ML INJ IV STA (20:42)
--- NOTE | 2020-04-05 20:52 | ED ---
Recheck HPI - General Chief Complaint: Recheck/Abnormal Lab/Rx Stated Complaint: high bp Time Seen by Provider: 04/05/20 20:25 Source: patient, RN notes reviewed, old records reviewed Mode of arrival: ambulatory Limitations: no limitations - History of Present Illness Initial Comments: Patient is a 29-year-old male who presents emergency department today for evaluation for high blood pressure and needing medications. Patient reportedly left AMA to attend a today. He reports that he was admitted for abated ammonia level liver enzymes. Patient reports that he was supposed to be discharged and started on blood pressure medication and the lactulose. He reports he tried to follow-up with his PCP today who would not give that to him until he came to the ER for reevaluation as he did leave AMA yesterday. Today he has no complaints of any pain at this time. He denies any chills. He started have a low-grade temperature upon arrival. Patient has had no other significant complaints. - Related Data Previous Rx's Medication Instructions Recorded Lactulose 20 gm PO DAILY #600 ml 04/05/20 amLODIPine [Norvasc] 5 mg PO DAILY #14 tab 04/05/20 Allergies Allergy/AdvReac Type Severity Reaction Status Date / Time No Known Allergies Allergy Verified 04/05/20 20:18 Review of Systems ROS Statement: Those systems with pertinent positive or pertinent negative responses have been documented in the HPI. ROS Other: All systems not noted in ROS Statement are negative. Past Medical History Past Medical History: Hypertension Additional Past Medical History / Comment(s): Nephrolithiasis, ETOH abuse with past withdrawal tremors, past alcoholic hepatitis/acute severe kidney injury/hyperphosphatemia/acute metabolic encephalopathy from renal failure. History of Any Multi-Drug Resistant Organisms: None Reported Past Surgical History: Tonsillectomy Past Anesthesia/Blood Transfusion Reactions: No Reported Reaction Past Psychological History: No Psychological Hx Reported Smoking Status: Current every day smoker Past Alcohol Use History: Abuse, Daily Past Drug Use History: Marijuana - Past Family History Father Family Medical History: Myocardial Infarction ([place]) Additional Family Medical History / Comment(s): at age 4949 years old [place] Mother Family Medical History: Hypertension General Exam - General Exam Comments Initial Comments: Alert and oriented 29-year-old male. Limitations: no limitations General appearance: alert, in no apparent distress Head exam: Present: atraumatic, normocephalic, normal inspection Eye exam: Present: normal appearance, PERRL, EOMI. Absent: scleral icterus, conjunctival injection, periorbital swelling ENT exam: Present: normal exam Neck exam: Present: normal inspection. Absent: tenderness, meningismus, lymphadenopathy Respiratory exam: Present: normal lung sounds bilaterally. Absent: respiratory distress, wheezes, rales, rhonchi, stridor Cardiovascular Exam: Present: normal rhythm, tachycardia, normal heart sounds. Absent: regular rate, systolic murmur, diastolic murmur, rubs, gallop, clicks GI/Abdominal exam: Present: soft, normal bowel sounds. Absent: distended, tenderness, guarding, rebound, rigid Extremities exam: Present: normal inspection, full ROM, normal capillary refill. Absent: tenderness, pedal edema, joint swelling, calf tenderness Back exam: Present: normal inspection Neurological exam: Present: alert, oriented X3, CN II-XII intact Course Vital Signs 04/05/20 04/05/20 04/05/20 20:14 21:18 21:45 Temperature 100.1 F H Pulse Rate 113 H Respiratory 20 Rate Blood Pressure 176/101 158/99 152/87 O2 Sat by Pulse 100 Oximetry Medical Decision Making - Medical Decision Making 29-year-old male history of alcohol abuse presents emergency Department after leaving AGAINST MEDICAL ADVICE yesterday to attend a today. He was supposed to be discharged with lactulose and medications to manage his blood pressure. Patient arrives to emergency Department complaining of no further complaints. Denies any pain. He states that he try to follow with his PCP to get medications however they refused to his he left AMA. When Patient was discharged he did have noticed liver enzymes are trending upwards. We decided to recheck lab work today. His liver enzymes has stabilized. Ammonia level is 49. He is alert and oriented 3. No signs of hepatic encephalopathy. Patient was given lactulose while he was in the hospital. I discussed we can continue this at this time. I did offer the Patient admission and treatment versus attempting outpatient management with medications and following up with PCP of states he prefers to home at this time. I discussed the case with Dr. Hong reviewed labs and finding and Patient as well. Patient will be discharged at this time with low-dose blood pressure medication as well as lactulose. Treatment reports that he is attending outpatient rehab therapy for alcohol abuse - Lab Data Result diagrams: 04/05/20 20:43 04/05/20 20:43 Lab Results 04/05/20 04/05/20 04/05/20 Range/Units 20:43 20:43 20:43 WBC 9.2 (3.8-10.6) k/uL RBC 3.57 L (4.30-5.90) m/uL Hgb 13.3 (13.0-17.5) gm/dL Hct 41.4 (39.0-53.0) % MCV 116.1 H (80.0-100.0) fL MCH 37.3 H (25.0-35.0) pg MCHC 32.2 (31.0-37.0) g/dL RDW 15.2 (11.5-15.5) % Plt Count 203 (150-450) k/uL Neutrophils % 66 % Lymphocytes % 25 % Monocytes % 4 % Eosinophils % 3 % Basophils % 0 % Neutrophils # 6.1 (1.3-7.7) k/uL Lymphocytes # 2.3 (1.0-4.8) k/uL Monocytes # 0.4 (0-1.0) k/uL Eosinophils # 0.3 (0-0.7) k/uL Basophils # 0.0 (0-0.2) k/uL Manual Slide Review Performed Macrocytosis Marked A Sodium 137 (137-145) mmol/L Potassium 3.5 (3.5-5.1) mmol/L Chloride 101 (98-107) mmol/L Carbon Dioxide 26 (22-30) mmol/L Anion Gap 10 mmol/L BUN 13 (9-20) mg/dL Creatinine 0.73 (0.66-1.25) mg/dL Est GFR (CKD-EPI)AfAm >90 (>60 ml/min/1.73 sqM) Est GFR (CKD-EPI)NonAf >90 (>60 ml/min/1.73 sqM) Glucose 125 H (74-99) mg/dL Plasma Lactic Acid Raul (0.7-2.0) mmol/L Calcium 9.6 (8.4-10.2) mg/dL Total Bilirubin 1.2 (0.2-1.3) mg/dL AST 432 H (17-59) U/L ALT 254 H (4-49) U/L Alkaline Phosphatase 176 H (38-126) U/L Ammonia (<30) umol/L Total Protein 7.9 (6.3-8.2) g/dL Albumin 4.6 (3.5-5.0) g/dL Amylase 75 (30-110) U/L Lipase 329 H (23-300) U/L Urine Color Yellow Urine Appearance Clear (Clear) Urine pH 6.0 (5.0-8.0) Ur Specific [place] 1.030 (1.001-1.035) Urine Protein 1+ H (Negative) Urine Glucose (UA) Negative (Negative) Urine Ketones Trace H (Negative) Urine Blood Negative (Negative) Urine Nitrite Negative (Negative) Urine Bilirubin 1+ H (Negative) Urine Urobilinogen 4.0 (<2.0) mg/dL Ur Leukocyte Esterase Negative (Negative) Urine RBC 1 (0-5) /hpf Urine WBC 1 (0-5) /hpf Urine Mucus Few H (None) /hpf Serum Alcohol <10 mg/dL 04/05/20 Range/Units 20:43 WBC (3.8-10.6) k/uL RBC (4.30-5.90) m/uL Hgb (13.0-17.5) gm/dL Hct (39.0-53.0) % MCV (80.0-100.0) fL MCH (25.0-35.0) pg MCHC (31.0-37.0) g/dL RDW (11.5-15.5) % Plt Count (150-450) k/uL Neutrophils % % Lymphocytes % % Monocytes % % Eosinophils % % Basophils % % Neutrophils # (1.3-7.7) k/uL Lymphocytes # (1.0-4.8) k/uL Monocytes # (0-1.0) k/uL Eosinophils # (0-0.7) k/uL Basophils # (0-0.2) k/uL Manual Slide Review Macrocytosis Sodium (137-145) mmol/L Potassium (3.5-5.1) mmol/L Chloride (98-107) mmol/L Carbon Dioxide (22-30) mmol/L Anion Gap mmol/L BUN (9-20) mg/dL Creatinine (0.66-1.25) mg/dL Est GFR (CKD-EPI)AfAm (>60 ml/min/1.73 sqM) Est GFR (CKD-EPI)NonAf (>60 ml/min/1.73 sqM) Glucose (74-99) mg/dL Plasma Lactic Acid Raul 1.6 (0.7-2.0) mmol/L Calcium (8.4-10.2) mg/dL Total Bilirubin (0.2-1.3) mg/dL AST (17-59) U/L ALT (4-49) U/L Alkaline Phosphatase (38-126) U/L Ammonia 49 H (<30) umol/L Total Protein (6.3-8.2) g/dL Albumin (3.5-5.0) g/dL Amylase (30-110) U/L Lipase (23-300) U/L Urine Color Urine Appearance (Clear) Urine pH (5.0-8.0) Ur Specific [place] (1.001-1.035) Urine Protein (Negative) Urine Glucose (UA) (Negative) Urine Ketones (Negative) Urine Blood (Negative) Urine Nitrite (Negative) Urine Bilirubin (Negative) Urine Urobilinogen (<2.0) mg/dL Ur Leukocyte Esterase (Negative) Urine RBC (0-5) /hpf Urine WBC (0-5) /hpf Urine Mucus (None) /hpf Serum Alcohol mg/dL 04/05/20 21:30 EKG performed at 2102 shows normal sinus rhythm and normal EKG. Farooq rate of 92 bpm. SC interval is 152 ms. QS duration is 84 ms. QT QTc is 374/462 ms. Disposition Clinical Impression: Alcohol abuse, Transaminitis, Episode of hypertension Disposition: HOME SELF-CARE Instructions (If sedation given, give patient instructions): Abuse of Alcohol (ED) Additional Instructions: Follow-up with primary care doctor. Follow-up with outpatient alcohol rehab resources. Return to emergency department if any alarming signs or symptoms occur. Prescriptions: Lactulose 20 gm PO DAILY #600 ml amLODIPine [Norvasc] 5 mg PO DAILY #14 tab Is patient prescribed a controlled substance at d/c from ED?: No Referrals: Carlos Silva MD [Primary Care Provider] - 1-2 days Time of Disposition: 22:01
[2020-04-05 21:09] LABS: Appearance,Urine Clear (Clear); Bilirubin,Urine 1+ (Negative); Blood,Urine Negative (Negative); Color,Urine Yellow; Glucose,Urine (UA) Negative (Negative); Ketones,Urine Trace (Negative); Leukocyte Esterase,Urine Negative (Negative); Mucus,Urine Few /hpf; Nitrite,Urine Negative (Negative); Protein,Urine 1+ (Negative); RBC,Urine 1 /hpf (0-5); WBC,Urine 1 /hpf (0-5)
[2020-04-05 21:16] LABS: Lactic Acid, Venous 1.6 mmol/L (0.7-2.0)
[2020-04-05 21:18] LABS: ALT 254 U/L (4-49); AST 432 U/L (17-59); African American GFR (CKD) >90 (>60 ml/min/1.73 sqM); Albumin 4.6 g/dL (3.5-5.0); Alcohol <10 mg/dL; Alkaline Phosphatase 176 U/L (38-126); Amylase 75 U/L (30-110); Anion Gap 10 mmol/L; Blood Urea Nitrogen 13 mg/dL (9-20); Calcium 9.6 mg/dL (8.4-10.2); Carbon Dioxide 26 mmol/L (22-30); Chloride 101 mmol/L (98-107); Glucose 125 mg/dL (74-99); Non-African American GFR(CKD) >90 (>60 ml/min/1.73 sqM); Potassium 3.5 mmol/L (3.5-5.1); Sodium 137 mmol/L (137-145); Total Bilirubin 1.2 mg/dL (0.2-1.3); Total Protein 7.9 g/dL (6.3-8.2)
[2020-04-05 21:20] LABS: Basophils % (A) 0 %; Eosinophils # (A) 0.3 k/uL (0-0.7); Eosinophils % (A) 3 %; HCT 41.4 % (39.0-53.0); HGB 13.3 gm/dL (13.0-17.5); Lymphocytes # (A) 2.3 k/uL (1.0-4.8); Lymphocytes % (A) 25 %; MCH 37.3 pg (25.0-35.0); MCHC 32.2 g/dL (31.0-37.0); MCV 116.1 fL (80.0-100.0); Macrocytosis Marked; Mean Platelet Volume 8.9; Monocytes # (A) 0.4 k/uL (0-1.0); Monocytes % (A) 4 %; Neutrophils # (A) 6.1 k/uL (1.3-7.7); Neutrophils % (A) 66 %; Platelet Count 203 k/uL (150-450); RBC 3.57 m/uL (4.30-5.90); RDW 15.2 % (11.5-15.5); WBC 9.2 k/uL (3.8-10.6)
[2020-04-05 23:26] VITALS: BP 161/103; PULSE 94; RESP 18; TEMP 98.8
== END 2020-04-05 23:06 | disposition home or self-care (01) ==
LOC: EC 20:11
DX: R74.01 Elevation of levels of liver transaminase levels (principal); I10 Essential (primary) hypertension; F10.10 Alcohol abuse, uncomplicated; R50.9 Fever, unspecified; F17.200 Nicotine dependence, unspecified, uncomplicated; Z82.49 Family history of ischemic heart disease and other diseases of the circulatory system; Y90.0 Blood alcohol level of less than 20 mg/100 ml
CPT/HCPCS: 36415; 93005; 80053; 82140; 82150; 83605; 83690; 85025; 81001; 80320; 99284; 96374; 96361 ×2; J2060

== ENCOUNTER 2021-01-30 13:47 | Inpatient (IN) | payer OTHER ==
[2021-01-30] MEDS ORDERED: LORazepam 2 MG/ML INJ IV STA ×2 (15:23→16:48)
[2021-01-30] MEDS ORDERED: SODIUM CHLORIDE 0.9% 1,000 ML with MVI, ADULT NO.4 WITH VIT K 10 ML, THIAMINE 100 MG, F... IV ONE ×4 (15:23)
[2021-01-30] MEDS ORDERED: ONDANSETRON 4 MG/2 ML VIAL IVP STA (15:23)
[2021-01-30] MEDS ORDERED: SODIUM CHLORIDE 0.9% 1,000 ML IV ONE (15:23)
[2021-01-30 15:45] LABS: Anisocytosis Slight; Basophils % (A) 0 %; Eosinophils # (A) 0.1 k/uL (0-0.7); Eosinophils % (A) 1 %; HCT 40.6 % (39.0-53.0); HGB 14.1 gm/dL (13.0-17.5); Lymphocytes # (A) 1.1 k/uL (1.0-4.8); Lymphocytes % (A) 9 %; MCH 39.4 pg (25.0-35.0); MCHC 34.8 g/dL (31.0-37.0); MCV 113.1 fL (80.0-100.0); Macrocytosis Marked; Mean Platelet Volume 7.3; Monocytes # (A) 0.4 k/uL (0-1.0); Monocytes % (A) 3 %; Neutrophils # (A) 11.2 k/uL (1.3-7.7); Neutrophils % (A) 86 %; Platelet Count 232 k/uL (150-450); RBC 3.59 m/uL (4.30-5.90); RDW 16.3 % (11.5-15.5)
[2021-01-30 15:53] LABS: ALT 178 U/L (4-49); AST 478 U/L (17-59); African American GFR (CKD) >90 (>60 ml/min/1.73 sqM); Albumin 5.9 g/dL (3.5-5.0); Alcohol <10 mg/dL; Alkaline Phosphatase 181 U/L (38-126); Anion Gap 18 mmol/L; Blood Urea Nitrogen 11 mg/dL (9-20); Calcium 10.3 mg/dL (8.4-10.2); Carbon Dioxide 20 mmol/L (22-30); Chloride 97 mmol/L (98-107); Glucose 110 mg/dL (74-99); Magnesium 1.4 mg/dL (1.6-2.3); Non-African American GFR(CKD) >90 (>60 ml/min/1.73 sqM); Phosphorus 3.5 mg/dL (2.5-4.5); Sodium 135 mmol/L (137-145); Total Bilirubin 1.8 mg/dL (0.2-1.3); Total Protein 9.5 g/dL (6.3-8.2)
[2021-01-30 15:57] LABS: Potassium 4.5 mmol/L (3.5-5.1)
--- NOTE | 2021-01-30 16:23 | ED ---
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 Patient states his last drink was around 3:00 in the morning. States he generally drinks 1 pint to a fifth of liquor per day. Denies any headache, blurred vision, double vision. States he has had nausea and vomiting throughout the day. Denies any falls or head injury. Patient denies any recent rash, cough, shortness of breath, chest pain, diarrhea, constipation, back pain, numbness, tingling, hematuria, dysuria, urinary urgency, urinary frequency, or any other complaints. - Related Data Home Medications Medication Instructions Recorded Confirmed No Known Home Medications 01/30/21 01/30/21 Allergies Allergy/AdvReac Type Severity Reaction Status Date / Time No Known Allergies Allergy Verified 01/30/21 17:53 Review of Systems ROS Statement: Those systems with pertinent positive or pertinent negative responses have been documented in the HPI. ROS Other: All systems not noted in ROS Statement are negative. Past Medical History Past Medical History: Hypertension Additional Past Medical History / Comment(s): Nephrolithiasis, ETOH abuse with past withdrawal tremors, past alcoholic hepatitis/acute severe kidney injury/hyperphosphatemia/acute metabolic encephalopathy from renal failure. History of Any Multi-Drug Resistant Organisms: None Reported Past Surgical History: Tonsillectomy Past Anesthesia/Blood Transfusion Reactions: No Reported Reaction Past Psychological History: No Psychological Hx Reported Smoking Status: Current every day smoker Past Alcohol Use History: Abuse, Daily Past Drug Use History: Marijuana - Past Family History Father Family Medical History: Myocardial Infarction ([place]) Additional Family Medical History / Comment(s): at age 4949 years old [place] Mother Family Medical History: Hypertension General Exam Limitations: no limitations General appearance: alert, in no apparent distress, other (This is a well- developed, well-nourished adult male patient in no acute distress. Vital signs upon presentation are temperature 98.2F, pulse 118, respirations 22, blood pressure 206/126, pulse ox 97% on room air.) Eye exam: Present: normal appearance, PERRL, EOMI. Absent: scleral icterus, conjunctival injection, periorbital swelling ENT exam: Present: normal exam, normal oropharynx, mucous membranes moist Respiratory exam: Present: normal lung sounds bilaterally. Absent: respiratory distress, wheezes, rales, rhonchi, stridor Cardiovascular Exam: Present: normal rhythm, tachycardia, normal heart sounds. Absent: systolic murmur, diastolic murmur, rubs, gallop, clicks GI/Abdominal exam: Present: soft, tenderness (Generalized), normal bowel sounds. Absent: distended, guarding, rebound, rigid Neurological exam: Present: alert, oriented X3, CN II-XII intact Psychiatric exam: Present: normal affect, normal mood Skin exam: Present: warm, intact, normal color, diaphoretic. Absent: rash Course Vital Signs 01/30/21 01/30/21 01/30/21 14:43 16:28 17:00 Temperature 98.2 F Pulse Rate 118 H 100 107 H Respiratory 22 18 18 Rate Blood Pressure 206/126 175/109 173/103 O2 Sat by Pulse 97 99 97 Oximetry 01/30/21 18:00 Temperature Pulse Rate 109 H Respiratory 18 Rate Blood Pressure 177/114 O2 Sat by Pulse 97 Oximetry Medical Decision Making - Medical Decision Making 30-year-old male patient presents to the emergency department today for evaluation of alcohol withdrawal. He is specifically reporting left arm paresthesia, nausea, and vomiting. Labs reviewed and did reveal white blood cell count at 13.0. INR is 1.4, sodium 135, magnesium 1.4, total bilirubin 1.8, elevated AST ALT. Urinalysis shows 4+ ketones. He is given multiple doses of Ativan, IV fluids, banana bag. He'll be admitted to the hospital for alcohol withdrawal. He is agreeable with this plan. Case discussed with my attending Dr. Thompson. - Lab Data Result diagrams: 01/30/21 15:34 01/30/21 15:34 Lab Results 01/30/21 01/30/21 01/30/21 Range/Units 15:34 15:34 16:36 WBC 13.0 H (3.8-10.6) k/uL RBC 3.59 L (4.30-5.90) m/uL Hgb 14.1 (13.0-17.5) gm/dL Hct 40.6 (39.0-53.0) % MCV 113.1 H (80.0-100.0) fL MCH 39.4 H (25.0-35.0) pg MCHC 34.8 (31.0-37.0) g/dL RDW 16.3 H (11.5-15.5) % Plt Count 232 (150-450) k/uL MPV 7.3 Neutrophils % 86 % Lymphocytes % 9 % Monocytes % 3 % Eosinophils % 1 % Basophils % 0 % Neutrophils # 11.2 H (1.3-7.7) k/uL Lymphocytes # 1.1 (1.0-4.8) k/uL Monocytes # 0.4 (0-1.0) k/uL Eosinophils # 0.1 (0-0.7) k/uL Basophils # 0.0 (0-0.2) k/uL Anisocytosis Slight Macrocytosis Marked A PT 13.9 H (9.0-12.0) sec INR 1.4 H (<1.2) APTT 26.7 (22.0-30.0) sec Sodium 135 L (137-145) mmol/L Potassium 4.5 (3.5-5.1) mmol/L Chloride 97 L (98-107) mmol/L Carbon Dioxide 20 L (22-30) mmol/L Anion Gap 18 mmol/L BUN 11 (9-20) mg/dL Creatinine 0.60 L (0.66-1.25) mg/dL Est GFR (CKD-EPI)AfAm >90 (>60 ml/min/1.73 sqM) Est GFR (CKD-EPI)NonAf >90 (>60 ml/min/1.73 sqM) Glucose 110 H (74-99) mg/dL Calcium 10.3 H (8.4-10.2) mg/dL Phosphorus 3.5 (2.5-4.5) mg/dL Magnesium 1.4 L (1.6-2.3) mg/dL Total Bilirubin 1.8 H (0.2-1.3) mg/dL AST 478 H (17-59) U/L ALT 178 H (4-49) U/L Alkaline Phosphatase 181 H (38-126) U/L Total Protein 9.5 H (6.3-8.2) g/dL Albumin 5.9 H (3.5-5.0) g/dL Urine Color Urine Appearance (Clear) Urine pH (5.0-8.0) Ur Specific [place] (1.001-1.035) Urine Protein (Negative) Urine Glucose (UA) (Negative) Urine Ketones (Negative) Urine Blood (Negative) Urine Nitrite (Negative) Urine Bilirubin (Negative) Urine Urobilinogen (<2.0) mg/dL Ur Leukocyte Esterase (Negative) Urine RBC (0-5) /hpf Urine WBC (0-5) /hpf Ur Squamous Epith Cells (0-4) /hpf Urine Bacteria (None) /hpf Hyaline Casts (0-2) /lpf Urine Mucus (None) /hpf Serum Alcohol <10 mg/dL 01/30/21 Range/Units 16:36 WBC (3.8-10.6) k/uL RBC (4.30-5.90) m/uL Hgb (13.0-17.5) gm/dL Hct (39.0-53.0) % MCV (80.0-100.0) fL MCH (25.0-35.0) pg MCHC (31.0-37.0) g/dL RDW (11.5-15.5) % Plt Count (150-450) k/uL MPV Neutrophils % % Lymphocytes % % Monocytes % % Eosinophils % % Basophils % % Neutrophils # (1.3-7.7) k/uL Lymphocytes # (1.0-4.8) k/uL Monocytes # (0-1.0) k/uL Eosinophils # (0-0.7) k/uL Basophils # (0-0.2) k/uL Anisocytosis Macrocytosis PT (9.0-12.0) sec INR (<1.2) APTT (22.0-30.0) sec Sodium (137-145) mmol/L Potassium (3.5-5.1) mmol/L Chloride (98-107) mmol/L Carbon Dioxide (22-30) mmol/L Anion Gap mmol/L BUN (9-20) mg/dL Creatinine (0.66-1.25) mg/dL Est GFR (CKD-EPI)AfAm (>60 ml/min/1.73 sqM) Est GFR (CKD-EPI)NonAf (>60 ml/min/1.73 sqM) Glucose (74-99) mg/dL Calcium (8.4-10.2) mg/dL Phosphorus (2.5-4.5) mg/dL Magnesium (1.6-2.3) mg/dL Total Bilirubin (0.2-1.3) mg/dL AST (17-59) U/L ALT (4-49) U/L Alkaline Phosphatase (38-126) U/L Total Protein (6.3-8.2) g/dL Albumin (3.5-5.0) g/dL Urine Color Dark Brown Urine Appearance Cloudy (Clear) Urine pH 6.0 (5.0-8.0) Ur Specific [place] 1.034 (1.001-1.035) Urine Protein 3+ H (Negative) Urine Glucose (UA) Negative (Negative) Urine Ketones 4+ H (Negative) Urine Blood Negative (Negative) Urine Nitrite Negative (Negative) Urine Bilirubin 1+ H (Negative) Urine Urobilinogen 4.0 (<2.0) mg/dL Ur Leukocyte Esterase Trace H (Negative) Urine RBC 6 H (0-5) /hpf Urine WBC 1 (0-5) /hpf Ur Squamous Epith Cells <1 (0-4) /hpf Urine Bacteria Rare H (None) /hpf Hyaline Casts 6 H (0-2) /lpf Urine Mucus Many H (None) /hpf Serum Alcohol mg/dL Disposition Clinical Impression: Alcohol withdrawal Disposition: ADMITTED IP TO THIS [facility] Condition: Serious Decision to Admit Reason: Admit from EC Decision Date: 01/30/21 Decision Time: 17:19
[2021-01-30] MEDS ORDERED: MAGNESIUM OXIDE 400 MG TAB PO STA (16:48)
[2021-01-30 16:51] LABS: Appearance,Urine Cloudy (Clear); Bacteria,Urine Rare /hpf; Bilirubin,Urine 1+ (Negative); Blood,Urine Negative (Negative); Color,Urine Dark Brown; Glucose,Urine (UA) Negative (Negative); Hyaline Casts,Urine 6 /lpf (0-2); Ketones,Urine 4+ (Negative); Leukocyte Esterase,Urine Trace (Negative); Mucus,Urine Many /hpf; Nitrite,Urine Negative (Negative); Protein,Urine 3+ (Negative); RBC,Urine 6 /hpf (0-5); Specific Gravity,Urine 1.034 (1.001-1.035); Squamous Epithelial Cell,Urine <1 /hpf (0-4); WBC,Urine 1 /hpf (0-5)
[2021-01-30] MEDS ORDERED: NALOXONE 0.4 MG/ML 1 ML VIAL IV PRN (17:17)
[2021-01-30] MEDS ORDERED: ONDANSETRON 4 MG/2 ML VIAL IVP PRN (17:17)
[2021-01-30] MEDS ORDERED: THIAMINE 100 MG/ML 2 ML VIAL IM STA (17:18)
[2021-01-30] MEDS ORDERED: LORazepam 2 MG/ML INJ IV PRN ×3 (17:18)
[2021-01-30 18:02] LABS: INR 1.4 (<1.2); Prothrombin Time 13.9 sec (9.0-12.0)
[2021-01-30 18:03] LABS: Partial Thromboplastin Time 26.7 sec (22.0-30.0)
[2021-01-30] MEDS ORDERED: NICOTINE 21MG/24HR PATCH TRANSDERM STA (18:13)
[2021-01-30] MEDS ORDERED: cloNIDine HCL 0.1 MG TAB PO PRN (19:18)
[2021-01-30] MEDS ORDERED: HYDROcodone/APAP 5-325MG 1 EACH TAB PO PRN (19:18)
--- NOTE | 2021-01-30 20:15 | HP ---
HISTORY AND PHYSICAL DATE OF SERVICE: 01/30/2021 CHIEF COMPLAINT: Weakness. HISTORY OF PRESENT ILLNESS: This 30-year-old gentleman with a past medical history of hypertension, history of nephrolithiasis, history of EtOH abuse, being followed by no primary physician in the outpatient setting, was apparently drinking heavily. The patient had some left arm weakness, tingling, numbness and alcohol withdrawal. The last drink was about 3:00 this morning. The patient came to [facility]. The patient had multiple lab abnormalities, including alcoholic hepatitis. Alcohol level was found to be less than 10. There is no history of any fever, rigors or chills. No history of headache, loss of consciousness, seizures. PAST MEDICAL HISTORY: History of hypertension, history of nephrolithiasis, history EtOH abuse. MEDICATIONS: Home medications are none. ALLERGIES: NONE. FAMILY HISTORY: History of myocardial infarction in the family. SOCIAL HISTORY: History of alcohol, THC, smoking. REVIEW OF SYSTEMS: ENT: No diminished hearing. No diminished vision. CARDIOVASCULAR SYSTEM: No angina, palpitations. RESPIRATORY SYSTEM: As mentioned earlier. GI: As mentioned earlier : No dysuria. NERVOUS SYSTEM: As mentioned earlier ALLERGY/IMMUNOLOGY: No asthma or hay fever. MUSCULOSKELETAL: As mentioned earlier. HEMATOLOGY/ONCOLOGY: No history of anemia. ENDOCRINE: No history of diabetes. CONSTITUTIONAL: As mentioned earlier. DERMATOLOGY: Negative. RHEUMATOLOGY: Negative. PSYCHIATRY: As mentioned earlier. PHYSICAL EXAMINATION: Patient alert and oriented x3. Pulse 109, blood pressure 177/114, respiration 18, temperature 98.2, pulse ox 97% on room air. HEENT: Conjunctivae normal. NECK: No jugular venous distention. CARDIOVASCULAR: S1, S2 muffled. RESPIRATION: Breath sounds diminished at the bases. No rhonchi. No crackles. ABDOMEN: Soft, nontender. No mass palpable. LEGS: No edema. No swelling. NERVOUS SYSTEM: Higher functions as mentioned earlier. Moves all 4 limbs. No focal motor or sensory deficit. LYMPHATICS: No lymph node palpable in neck, axillae or groin. SKIN: No ulcer, rash, bleeding. JOINTS: No active deforming arthropathy. LABS: WBC 13, hemoglobin 14. Otherwise, INR is 1.4. Sodium 135. Other labs are noted. ASSESSMENT: 1. Alcohol withdrawal and acute delirium tremens. 2. Change in mental status, acute metabolic encephalopathy. 3. Acute alcohol hepatitis. 4. Hypercalcemia. 5. Dehydration, present on admission. 6. Hyponatremia. 7. Elevated PT/INR secondary to chronic liver disease. 8. Increased white count. 9. Increased mean corpuscular volume. 10.History of hypertension. 11.History of nephrolithiasis. 12.History of hepatosplenomegaly. 13.FULL CODE. RECOMMENDATIONS AND DISCUSSION: In this 30-year-old gentleman who presented with multiple complex medical issues, we will monitor the patient closely, continue the current medications, continue symptomatic treatment. I recommend CIWA protocol. Supplement vitamins. Prognosis guarded. Social Work/Case Management to evaluate for alcohol cessation rehab facilities. Otherwise, prognosis is guarded because of multiple complex medical issues. Further recommendations to follow. Will continue treating the blood pressure as well. MMODL / IJN: [id number] /
[2021-01-30] MEDS: THIAMINE 100 MG TAB PO SCH (20:27)
[2021-01-30] MEDS: cloNIDine HCL 0.1 MG TAB PO SCH ×2 (20:27→23:23)
[2021-01-30] MEDS: HEPARIN SODIUM,PORCINE/PF 5,000 UNIT/0.5 ML SYRINGE SQ SCH (21:17)
[2021-01-31 00:26] LABS: ALT 141 U/L (4-49); AST 346 U/L (17-59); African American GFR (CKD) >90 (>60 ml/min/1.73 sqM); Albumin/Globulin Ratio 1.9; Alkaline Phosphatase 156 U/L (38-126); Anion Gap 13 mmol/L; Blood Urea Nitrogen 9 mg/dL (9-20); Calcium 9.4 mg/dL (8.4-10.2); Carbon Dioxide 22 mmol/L (22-30); Chloride 96 mmol/L (98-107); Globulin 2.7 g/dL; Glucose 95 mg/dL (74-99); Non-African American GFR(CKD) >90 (>60 ml/min/1.73 sqM); Potassium 3.8 mmol/L (3.5-5.1); Sodium 131 mmol/L (137-145); Total Bilirubin 1.4 mg/dL (0.2-1.3); Total Protein 7.7 g/dL (6.3-8.2)
[2021-01-31 05:23] VITALS: RESP 18
[2021-01-31 07:04] LABS: Anisocytosis Slight; Basophils % (A) 1 %; Eosinophils # (A) 0.1 k/uL (0-0.7); Eosinophils % (A) 2 %; HCT 37.4 % (39.0-53.0); HGB 12.7 gm/dL (13.0-17.5); Lymphocytes # (A) 1.5 k/uL (1.0-4.8); Lymphocytes % (A) 23 %; MCH 38.3 pg (25.0-35.0); MCHC 33.9 g/dL (31.0-37.0); MCV 113.2 fL (80.0-100.0); Macrocytosis Marked; Mean Platelet Volume 7.5; Monocytes # (A) 0.3 k/uL (0-1.0); Monocytes % (A) 5 %; Neutrophils # (A) 4.4 k/uL (1.3-7.7); Neutrophils % (A) 67 %; Platelet Count 177 k/uL (150-450); RDW 16.1 % (11.5-15.5); WBC 6.5 k/uL (3.8-10.6)
[2021-01-31] MEDS: THIAMINE 100 MG TAB PO SCH ×2 (08:29→15:46)
[2021-01-31] MEDS: PANTOPRAZOLE 40 MG TABLET PO SCH (08:29)
[2021-01-31] MEDS: cloNIDine HCL 0.1 MG TAB PO SCH ×3 (08:29→19:55)
[2021-01-31] MEDS: NICOTINE 21MG/24HR PATCH TRANSDERM SCH (08:30)
[2021-01-31] MEDS: HEPARIN SODIUM,PORCINE/PF 5,000 UNIT/0.5 ML SYRINGE SQ SCH ×2 (08:30→19:55)
[2021-01-31 11:43] LABS: ALT 126 U/L (4-49); AST 300 U/L (17-59); African American GFR (CKD) >90 (>60 ml/min/1.73 sqM); Albumin 4.8 g/dL (3.5-5.0); Albumin/Globulin Ratio 1.8; Alkaline Phosphatase 165 U/L (38-126); Anion Gap 11 mmol/L; Blood Urea Nitrogen 8 mg/dL (9-20); Calcium 9.6 mg/dL (8.4-10.2); Carbon Dioxide 25 mmol/L (22-30); Chloride 98 mmol/L (98-107); Globulin 2.7 g/dL; Glucose 86 mg/dL (74-99); Non-African American GFR(CKD) >90 (>60 ml/min/1.73 sqM); Potassium 3.4 mmol/L (3.5-5.1); Sodium 134 mmol/L (137-145); Total Protein 7.5 g/dL (6.3-8.2)
--- NOTE | 2021-01-31 12:02 | PN ---
PROGRESS NOTE DATE OF SERVICE: 01/31/2021 This 30-year-old gentleman admitted with alcohol abuse is complaining of continued weakness and some tremors as well as sweating. The patient has showed features of alcohol withdrawal and early DTs also. No chest pain. No palpitations. No fever. No cough. No sputum. PHYSICAL EXAMINATION: Alert and oriented x3. Pulse 80, blood pressure 145/83, respiration 18, temperature 98 degrees, pulse ox 98% on room air. The blood pressure was 159/111 this morning and heart rate was 113. HEENT: Conjunctivae normal. NECK: No jugular venous distention. CARDIOVASCULAR: S1, S2 muffled. RESPIRATION: Breath sounds diminished at the bases. A few scattered rhonchi. ABDOMEN: Soft. NERVOUS SYSTEM: No focal deficit. LABS: Hemoglobin 12.7, white count is normal. Sodium 137, total bilirubin is 1.4. UA noted. ASSESSMENT: 1. Acute alcohol withdrawal and acute delirium tremens, present on admission. 2. Change in mental status, acute metabolic encephalopathy. 3. Acute alcoholic hepatitis. 4. Hypercalcemia. 5. Dehydration, present on admission. 6. Hyponatremia. 7. Elevated PT/INR secondary to chronic liver disease. 8. Increased white count. 9. Increased mean corpuscular volume. 10.History of hypertension. 11.Nephrolithiasis. 12.History of hepatosplenomegaly. 13.FULL CODE. RECOMMENDATIONS AND DISCUSSION: I recommend to continue current medications, continue with symptomatic treatment. Continue with the clonidine. Continue the CIWA protocol. Portable chest x-ray. Continue the rest of the medication. Alcohol rehab. Monitor closely. Prognosis guarded. Further recommendations to follow. MMODL / IJN: [id number] /
--- NOTE | 2021-01-31 12:34 | XR ---
EXAMINATION TYPE: XR chest 1V portable DATE OF EXAM: 01/31/2021 COMPARISON: Radiograph chest 04/03/2020 HISTORY: CHF TECHNIQUE: Single frontal view of the chest is obtained. FINDINGS: There is no focal air space opacity, pleural effusion, or pneumothorax seen. The cardiac silhouette size is within normal limits. The osseous structures are intact. IMPRESSION: No acute process.
[2021-02-01 04:41] VITALS: BP 157/93; PULSE 67; TEMP 97.7
[2021-02-01 06:19] LABS: Anisocytosis Slight; Basophils % (A) 1 %; Eosinophils # (A) 0.1 k/uL (0-0.7); Eosinophils % (A) 2 %; HGB 12.9 gm/dL (13.0-17.5); Lymphocytes # (A) 1.5 k/uL (1.0-4.8); Lymphocytes % (A) 30 %; MCH 39.6 pg (25.0-35.0); MCHC 34.9 g/dL (31.0-37.0); MCV 113.3 fL (80.0-100.0); Mean Platelet Volume 8.7; Monocytes # (A) 0.3 k/uL (0-1.0); Monocytes % (A) 5 %; Neutrophils # (A) 2.9 k/uL (1.3-7.7); Neutrophils % (A) 59 %; Platelet Count 141 k/uL (150-450); RBC 3.27 m/uL (4.30-5.90); WBC 4.9 k/uL (3.8-10.6)
[2021-02-01 06:40] LABS: Macrocytosis Marked
[2021-02-01] MEDS: THIAMINE 100 MG TAB PO SCH (08:16)
[2021-02-01] MEDS: HEPARIN SODIUM,PORCINE/PF 5,000 UNIT/0.5 ML SYRINGE SQ SCH (08:16)
[2021-02-01] MEDS: PANTOPRAZOLE 40 MG TABLET PO SCH (08:16)
[2021-02-01] MEDS: cloNIDine HCL 0.1 MG TAB PO SCH (08:16)
[2021-02-01] MEDS: NICOTINE 21MG/24HR PATCH TRANSDERM SCH (08:16)
--- NOTE | 2021-02-01 12:56 | DS ---
DISCHARGE SUMMARY FINAL DIAGNOSES: 1. Acute alcohol withdrawal and acute delirium tremens, present on admission. 2. Change in mental status acute metabolic encephalopathy secondary to above. 3. Acute alcoholic hepatitis. 4. Hypercalcemia. 5. Dehydration, present on admission. 6. Hyponatremia. 7. Elevated PT/INR secondary to chronic liver disease. 8. Increased WBC. 9. Increased MCV. 10.History of hypertension. 11.Full code. DISCHARGE CONDITION: The patient is discharged in stable condition. Guarded prognosis. HISTORY OF PRESENT ILLNESS: This is a 30-year-old gentleman with past medical problems admitted with acute alcohol withdrawal and delirium tremens, treated with [facility] protocol, improved significantly. Labs reviewed. The patient is recommended to follow up with [place] and attend counseling and AA meeting. On exam, vitals stable. Cardiovascular S1 and S2 present. Abdomen soft. Nervous system no focal deficits. DISCHARGE INSTRUCTIONS: Discharge diet normal, cardiac diet. No ETOH. Attend AA meetings and alcohol rehab outpatient. Followup with Dr. Gabe Flynn in 1-2 days. Medications are Ativan 1 mg p.o. t.i.d. p.r.n., Catapres 0.1 mg p.o. b.i.d., folic acid 1 mg p.o. daily. Multivitamins 100 mg p.o. daily. The patient is discharged in stable condition with guarded prognosis. MMODL / IJN: [id number] /
== END 2021-02-01 11:43 | disposition home or self-care (01) | DRG 896 ==
LOC: EC 13:47 → 5NMEDONC 16:40
PROVIDERS: ADMIT Hospitalist; ATTEND Hospitalist
DX: F10.231 Alcohol dependence with withdrawal delirium (principal); G93.41 Metabolic encephalopathy; E87.1 Hypo-osmolality and hyponatremia; E83.52 Hypercalcemia; E86.0 Dehydration; F17.210 Nicotine dependence, cigarettes, uncomplicated; I10 Essential (primary) hypertension; K70.10 Alcoholic hepatitis without ascites; Z87.442 Personal history of urinary calculi; R79.1 Abnormal coagulation profile; Z82.49 Family history of ischemic heart disease and other diseases of the circulatory system; Z90.89 Acquired absence of other organs; Z79.899 Other long term (current) drug therapy
CPT/HCPCS: 36415; 71045; 80053; 80320; 81001; 83735; 84100; 85025; 85610; 85730; 96361; 96365; 96366; 96372; 96375; 96376; 99285

== ENCOUNTER 2021-07-04 22:23 | Emergency (ER) | payer OTHER ==
[2021-07-04] MEDS ORDERED: SODIUM CHLORIDE 0.9% 1,000 ML IV STA (22:48)
[2021-07-04] MEDS ORDERED: THIAMINE 100 MG/ML 2 ML VIAL IVP STA (22:49)
[2021-07-04] MEDS ORDERED: ACETAMINOPHEN TAB 500 MG TAB PO STA (22:50)
[2021-07-04] MEDS ORDERED: LORazepam 2 MG/ML INJ IV STA (22:50)
[2021-07-04 23:40] LABS: Basophils % (A) 0 %; Eosinophils % (A) 0 %; HCT 40.8 % (39.0-53.0); HGB 14.2 gm/dL (13.0-17.5); Lymphocytes # (A) 0.4 k/uL (1.0-4.8); Lymphocytes % (A) 5 %; MCH 39.7 pg (25.0-35.0); MCHC 34.7 g/dL (31.0-37.0); MCV 114.4 fL (80.0-100.0); Macrocytosis Marked; Mean Platelet Volume 7.7; Monocytes # (A) 0.5 k/uL (0-1.0); Monocytes % (A) 6 %; Neutrophils # (A) 6.8 k/uL (1.3-7.7); Neutrophils % (A) 87 %; Platelet Count 212 k/uL (150-450); RBC 3.57 m/uL (4.30-5.90); RDW 13.9 % (11.5-15.5); WBC 7.7 k/uL (3.8-10.6)
[2021-07-04 23:51] LABS: ALT 121 U/L (4-49); AST 347 U/L (17-59); African American GFR (CKD) >90 (>60 ml/min/1.73 sqM); Albumin 5.3 g/dL (3.5-5.0); Alcohol <10 mg/dL; Alkaline Phosphatase 150 U/L (38-126); Anion Gap 14 mmol/L; Blood Urea Nitrogen 11 mg/dL (9-20); Calcium 9.4 mg/dL (8.4-10.2); Carbon Dioxide 24 mmol/L (22-30); Chloride 96 mmol/L (98-107); Glucose 117 mg/dL (74-99); Non-African American GFR(CKD) >90 (>60 ml/min/1.73 sqM); Potassium 3.6 mmol/L (3.5-5.1); Sodium 134 mmol/L (137-145); Total Bilirubin 0.9 mg/dL (0.2-1.3); Total Protein 8.6 g/dL (6.3-8.2)
[2021-07-05 00:25] VITALS: TEMP 98.7
[2021-07-05 01:04] LABS: Anisocytosis (M) Present
--- NOTE | 2021-07-05 01:05 | XR ---
EXAMINATION TYPE: XR chest 1V DATE OF EXAM: 07/05/2021 COMPARISON: NONE HISTORY: Fever TECHNIQUE: FINDINGS: Heart is normal. Lungs are clear of infiltrate. There are chest leads. Costophrenic angles are clear. There are no hilar masses. Bony thorax is intact. IMPRESSION: Normal chest. No change.
[2021-07-05 01:14] LABS: Polychromasia Present
--- NOTE | 2021-07-05 01:37 | ED ---
General Adult HPI - General Chief complaint: Alcohol Stated complaint: Poss kidney infection Time Seen by Provider: 07/04/21 22:43 Source: patient, RN notes reviewed Mode of arrival: ambulatory - History of Present Illness Initial comments: This is a pleasant 30-year-old male comes ER stating that he believes she is withdrawing from alcohol. Patient has some shaking chills earlier. Patient is found to have a temperature fever here in triage. Patient not vaccinated against COVID-19. Patient denies any chest pain or difficulty breathing. No nausea or vomiting. No hallucinations. No seizure activity. Not problems with dominance urination. No skin rashes or lesions. No shortness of breath. Patient's last drink of alcohol was last night. Patient never has gone through withdrawal causing seizures. - Related Data Previous Rx's Medication Instructions Recorded Folic Acid 1 mg PO DAILY #30 tablet 02/01/21 LORazepam [Ativan] 1 mg PO TID PRN #10 tab 02/01/21 Multivitamins, Thera [Multivitamin] 1 tab PO DAILY #30 tablet 02/01/21 Thiamine [Vitamin B-1] 100 mg PO DAILY #30 tablet 02/01/21 cloNIDine HCL [Catapres] 0.1 mg PO BID #30 tab 02/01/21 LORazepam [Ativan] 1 mg PO TID PRN #8 tab 07/05/21 Allergies Allergy/AdvReac Type Severity Reaction Status Date / Time No Known Allergies Allergy Verified 01/30/21 17:53 Review of Systems ROS Statement: Those systems with pertinent positive or pertinent negative responses have been documented in the HPI. ROS Other: All systems not noted in ROS Statement are negative. Past Medical History Past Medical History: Hypertension Additional Past Medical History / Comment(s): Nephrolithiasis, ETOH abuse with past withdrawal tremors, past alcoholic hepatitis/acute severe kidney injury/hyperphosphatemia/acute metabolic encephalopathy from renal failure. History of Any Multi-Drug Resistant Organisms: None Reported Past Surgical History: Tonsillectomy Past Anesthesia/Blood Transfusion Reactions: No Reported Reaction Past Psychological History: No Psychological Hx Reported Smoking Status: Current every day smoker Past Alcohol Use History: Abuse, Daily Past Drug Use History: Marijuana - Past Family History Father Family Medical History: Myocardial Infarction ([place]) Additional Family Medical History / Comment(s): at age 4949 years old [place] Mother Family Medical History: Hypertension General Exam - General Exam Comments Initial Comments: Patient tachycardic, febrile, does not appear to be toxic however. Cap refill less than 2 seconds. Moist mucous membranes. Adequate perfusion. Cranial nerves II through XII grossly intact. General appearance: alert, in no apparent distress Head exam: Present: atraumatic, normocephalic, normal inspection Eye exam: Present: normal appearance, PERRL, EOMI. Absent: scleral icterus, conjunctival injection, nystagmus, periorbital swelling ENT exam: Present: normal exam, mucous membranes moist Neck exam: Present: normal inspection. Absent: tenderness, meningismus, lymphadenopathy Respiratory exam: Present: normal lung sounds bilaterally. Absent: respiratory distress, wheezes, rales, rhonchi, stridor Cardiovascular Exam: Present: normal rhythm, tachycardia, normal heart sounds. Absent: systolic murmur, diastolic murmur, rubs, gallop, clicks GI/Abdominal exam: Present: soft, normal bowel sounds. Absent: distended, tenderness, guarding, rebound, rigid Extremities exam: Present: normal inspection, full ROM, normal capillary refill. Absent: tenderness, pedal edema, joint swelling, calf tenderness Back exam: Present: normal inspection Neurological exam: Present: alert, oriented X3, CN II-XII intact, normal gait. Absent: altered, abnormal gait, motor sensory deficit Psychiatric exam: Present: normal affect, normal mood Skin exam: Present: warm, dry, intact, normal color. Absent: rash Course Vital Signs 07/04/21 07/05/21 22:28 00:24 Temperature 101.1 F H 98.7 F Pulse Rate 117 H 97 Respiratory 22 16 Rate Blood Pressure 176/99 O2 Sat by Pulse 98 Oximetry Medical Decision Making - Medical Decision Making Patient cannot 3 positive for COVID-19. I suspect the patient is not withdrawing actively from alcohol. His CIWA score is 1. Patient counseled on quarantine measures. All questions answered. I did give the patient a limited course of lorazepam as he promises not to use alcohol with this. He can take one every 8 hours as needed for anxiety. Patient did have elevated liver enzymes which is likely related to alcoholic hepatitis. If the patient gets a fever atraumatic can take acetaminophen 500 mg but only every 6 hours. Patient fully understands. He knows he needs to obtain a primary care physician. We discussed treatment options for alcoholism to include Alcoholics Anonymous and possible rehabilitation. Patient was told to return to the ER for any signs or symptoms worsen. Told to return immediately if any other problems arise. All questions answered. Treatment plan discussed. Patient in agreement - Lab Data Result diagrams: 07/04/21 23:12 07/04/21 23:12 Lab Results 07/04/21 07/04/21 07/04/21 Range/Units 23:12 23:12 23:12 WBC 7.7 (3.8-10.6) k/uL RBC 3.57 L (4.30-5.90) m/uL Hgb 14.2 (13.0-17.5) gm/dL Hct 40.8 (39.0-53.0) % MCV 114.4 H (80.0-100.0) fL MCH 39.7 H (25.0-35.0) pg MCHC 34.7 (31.0-37.0) g/dL RDW 13.9 (11.5-15.5) % Plt Count 212 (150-450) k/uL MPV 7.7 Neutrophils % 87 % Lymphocytes % 5 % Monocytes % 6 % Eosinophils % 0 % Basophils % 0 % Neutrophils # 6.8 (1.3-7.7) k/uL Lymphocytes # 0.4 L (1.0-4.8) k/uL Monocytes # 0.5 (0-1.0) k/uL Eosinophils # 0.0 (0-0.7) k/uL Basophils # 0.0 (0-0.2) k/uL Manual Slide Review Performed Polychromasia Present Anisocytosis (manual) Present Macrocytosis Marked A Sodium 134 L (137-145) mmol/L Potassium 3.6 (3.5-5.1) mmol/L Chloride 96 L (98-107) mmol/L Carbon Dioxide 24 (22-30) mmol/L Anion Gap 14 mmol/L BUN 11 (9-20) mg/dL Creatinine 0.66 (0.66-1.25) mg/dL Est GFR (CKD-EPI)AfAm >90 (>60 ml/min/1.73 sqM) Est GFR (CKD-EPI)NonAf >90 (>60 ml/min/1.73 sqM) Glucose 117 H (74-99) mg/dL Plasma Lactic Acid Raul 1.5 (0.7-2.0) mmol/L Calcium 9.4 (8.4-10.2) mg/dL Total Bilirubin 0.9 (0.2-1.3) mg/dL AST 347 H (17-59) U/L ALT 121 H (4-49) U/L Alkaline Phosphatase 150 H (38-126) U/L Total Protein 8.6 H (6.3-8.2) g/dL Albumin 5.3 H (3.5-5.0) g/dL Stool Occult Blood (Negative) Serum Alcohol <10 mg/dL Coronavirus (PCR) (Not Detectd) Influenza Type A RNA (Not Detectd) Influenza Type B (PCR) (Not Detectd) 07/04/21 07/04/21 07/04/21 Range/Units 23:12 23:12 23:12 WBC (3.8-10.6) k/uL RBC (4.30-5.90) m/uL Hgb (13.0-17.5) gm/dL Hct (39.0-53.0) % MCV (80.0-100.0) fL MCH (25.0-35.0) pg MCHC (31.0-37.0) g/dL RDW (11.5-15.5) % Plt Count (150-450) k/uL MPV Neutrophils % % Lymphocytes % % Monocytes % % Eosinophils % % Basophils % % Neutrophils # (1.3-7.7) k/uL Lymphocytes # (1.0-4.8) k/uL Monocytes # (0-1.0) k/uL Eosinophils # (0-0.7) k/uL Basophils # (0-0.2) k/uL Manual Slide Review Polychromasia Anisocytosis (manual) Macrocytosis Sodium (137-145) mmol/L Potassium (3.5-5.1) mmol/L Chloride (98-107) mmol/L Carbon Dioxide (22-30) mmol/L Anion Gap mmol/L BUN (9-20) mg/dL Creatinine (0.66-1.25) mg/dL Est GFR (CKD-EPI)AfAm (>60 ml/min/1.73 sqM) Est GFR (CKD-EPI)NonAf (>60 ml/min/1.73 sqM) Glucose (74-99) mg/dL Plasma Lactic Acid Raul (0.7-2.0) mmol/L Calcium (8.4-10.2) mg/dL Total Bilirubin (0.2-1.3) mg/dL AST (17-59) U/L ALT (4-49) U/L Alkaline Phosphatase (38-126) U/L Total Protein (6.3-8.2) g/dL Albumin (3.5-5.0) g/dL Stool Occult Blood Negative (Negative) Serum Alcohol mg/dL Coronavirus (PCR) Detected A (Not Detectd) Influenza Type A RNA Not Detected (Not Detectd) Influenza Type B (PCR) Not Detected (Not Detectd) Disposition Clinical Impression: COVID-19, Alcoholism Disposition: HOME SELF-CARE Condition: Stable Instructions (If sedation given, give patient instructions): Coronavirus Disease 2019 (COVID-19) Additional Instructions: Use [id number] acetaminophen, take only 500 mg every 6 hours for fever control. Your liver function is not optimal. Refrain from alcohol use. When you feeling better, contact Alcoholics Anonymous or rehabilitation center such as [place]. Follow-up with your regular physician as directed. Return to the ER immediately if any symptoms worsen, new symptoms arise, or any other problems develop. SELF QUARANTINE DISCHARGE: As you are at risk for symptoms due to coronavirus, please stay home and stay away from others as much as possible. Please maintain social distance of 6 feet if possible. You should not return to work until at least 3 days (72 hours) have passed since recovery of symptoms. This defined as resolution of fever without the use of fever reducing medicines and improvement in respiratory symptoms (e.g,, cough, shortness of breath) Isolation can end at least 5 days after symptom onset and after fever ends for 24 hours (without the use of fever-reducing medication) and symptoms are improving, if these people can continue to properly wear a well-fitted mask around others for 5 more days after the 5-day isolation period. If you're still having symptoms at the end of 5 day period, isolate for an additional 5 days. More information about what to do if you are sick can be found on the CDC website at https://www.cdc.gov/coronavirus/2019-ncov/lk-aje-naq-sick/oxrei-xhha-rbyx.html Expect the symptoms to last for 7-14 days from onset. Use acetaminophen (Tylenol) as needed for discomfort. You can take a maximum of 1 gram every 6 hours for discomfort, with your total dose in 24 hours not exceeding 4 grams. Be sure to maintain hydration. Drink continuous water and/or items high in vitamin C, such as orange juice and/or lemonade. Unless you have high blood pressure, you may consider Sudafed (which is [id number]) for nasal congestion. I would suggest that a short acting Sudafed rather than the 24 hour Sudafed. For a cough you may take Mucinex or Robitussin. Also consider the use of Vicks Vapor Rub or your chest when you sleep. Use a humidifier that is cleaned frequently, in the bedroom at night. For Nausea /Vomiting/Diarrhea associated with your Illness: o Small frequent sips of room temperature liquids. o Diet: [place] [employer] - If you are still experiencing discomfort and/or nausea please slowly advancing your diet using the BRAT Diet = bananas, rice, apples/apple sauce, toast. o With diarrhea avoid any dairy for 48 hours after symptoms resolved. o Continue with activity as tolerated. If your symptoms do get worse and you believe that the upper respiratory infection has developed into something else, such as pneumonia or severe dehydration, please return to the emergency department or follow-up with your primary care. But expect to be symptomatic for the days as indicated above Did not mix alcohol with the lorazepam Prescriptions: LORazepam [Ativan] 1 mg PO TID PRN #8 tab PRN Reason: Anxiety Is patient prescribed a controlled substance at d/c from ED?: No Referrals: Shun Lamb [STAFF PHYSICIAN] - 07/13/21 Time of Disposition: 01:29
[2021-07-05 01:47] VITALS: BP 159/98; PULSE 99; RESP 18
== END 2021-07-05 01:53 | disposition home or self-care (01) ==
LOC: EC 22:23
DX: U07.1 COVID-19 (principal); F10.20 Alcohol dependence, uncomplicated; F17.200 Nicotine dependence, unspecified, uncomplicated; I10 Essential (primary) hypertension; Y90.0 Blood alcohol level of less than 20 mg/100 ml
CPT/HCPCS: 80053; 83605; 85025; 82272; 87040; 80320; 87502; 87635; 99284; 96374; 96375; J2060; J3411; 36415; 71045

== ENCOUNTER 2021-12-31 10:29 | Emergency (ER) | payer OTHER ==
[2021-12-31 10:45] VITALS: PULSE 108; RESP 22; TEMP 98.3
[2021-12-31] MEDS ORDERED: SODIUM CHLORIDE 0.9% 1,000 ML IV STA (10:53)
[2021-12-31] MEDS ORDERED: ONDANSETRON 4 MG/2 ML VIAL IVP STA (10:53)
[2021-12-31] MEDS ORDERED: FAMOTIDINE 20 MG/2 ML VIAL IV STA (10:55)
--- NOTE | 2021-12-31 10:57 | ED ---
General Adult HPI - General Chief complaint: Nausea/Vomiting/Diarrhea Stated complaint: vomiting Time Seen by Provider: 12/31/21 10:50 Source: patient, RN notes reviewed, old records reviewed Mode of arrival: ambulatory Limitations: no limitations - History of Present Illness Initial comments: Well-appearing 31-year-old male presents to the emergency room with complaints of fatigue and decreased appetite since Tuesday. Nausea and vomiting over the past 2 days. Denies any diarrhea or abdominal pain. Denies any fevers. States that he does have a history of hypertension and has not had any medication for the past month. Patient states that he does smoke a pack of cigarettes a day and uses marijuana. He is an occasional drinker 2 days a week. Patient states he has not seen his primary care doctor in 2 months. -: days(s) (4) Severity scale (1-10): 0 Associated Symptoms: loss of appetite, malaise, nausea/vomiting Treatments Prior to Arrival: none - Related Data Previous Rx's Medication Instructions Recorded cloNIDine HCL [Catapres] 0.1 mg PO BID 30 Days #60 tab 12/31/21 Allergies Allergy/AdvReac Type Severity Reaction Status Date / Time No Known Allergies Allergy Verified 12/31/21 11:57 Review of Systems ROS Statement: Those systems with pertinent positive or pertinent negative responses have been documented in the HPI. ROS Other: All systems not noted in ROS Statement are negative. Past Medical History Past Medical History: Hypertension Additional Past Medical History / Comment(s): Nephrolithiasis, ETOH abuse with past withdrawal tremors, past alcoholic hepatitis/acute severe kidney injury/hyperphosphatemia/acute metabolic encephalopathy from renal failure. History of Any Multi-Drug Resistant Organisms: None Reported Past Surgical History: Tonsillectomy Past Anesthesia/Blood Transfusion Reactions: No Reported Reaction Past Psychological History: No Psychological Hx Reported Smoking Status: Current every day smoker Past Alcohol Use History: Heavy Past Drug Use History: Marijuana - Past Family History Father Family Medical History: Myocardial Infarction ([place]) Additional Family Medical History / Comment(s): at age 4949 years old [place] Mother Family Medical History: Hypertension General Exam Limitations: no limitations General appearance: alert, in no apparent distress Head exam: Present: atraumatic Eye exam: Present: normal appearance. Absent: scleral icterus, conjunctival injection, periorbital swelling ENT exam: Present: mucous membranes moist Neck exam: Present: normal inspection. Absent: tenderness, meningismus Respiratory exam: Present: normal lung sounds bilaterally. Absent: respiratory distress, accessory muscle use Cardiovascular Exam: Present: tachycardia GI/Abdominal exam: Present: soft. Absent: distended, tenderness Extremities exam: Present: full ROM, normal capillary refill. Absent: tenderness, pedal edema Back exam: Present: normal inspection, full ROM. Absent: tenderness, CVA tende rness (R), CVA tenderness (L), rash noted Neurological exam: Present: alert, oriented X3, normal gait Psychiatric exam: Present: normal affect, normal mood Skin exam: Present: warm, dry, normal color. Absent: cyanosis, diaphoretic, petechiae, pallor Course Vital Signs 12/31/21 12/31/21 12/31/21 10:40 11:04 11:54 Temperature 98.3 F Pulse Rate 108 H Respiratory 22 Rate Blood Pressure 186/120 179/120 174/109 O2 Sat by Pulse 98 Oximetry Medical Decision Making - Medical Decision Making There is no evidence of leukocytosis. Hemoglobin and hematocrit are stable. Kidney function is within normal limits. Alcohol level is 0. Patient is alert and oriented 4. He was given Pepcid and Zofran and IV fluids. He was also given labetalol for his blood pressure. Patient is well-appearing. Diagnosis of hypertensive urgency. He denies any chest pain, visual changes, or headaches. He was prescribed his Catapres and directed to follow up with his primary care doctor. Case was discussed with Dr. Dacosta - Lab Data Result diagrams: 12/31/21 11:05 12/31/21 11:05 Lab Results 12/31/21 12/31/21 12/31/21 Range/Units 11:05 11:05 11:05 WBC 10.5 (3.8-10.6) k/uL RBC 4.06 L (4.30-5.90) m/uL Hgb 15.6 (13.0-17.5) gm/dL Hct 46.9 (39.0-53.0) % MCV 115.6 H (80.0-100.0) fL MCH 38.3 H (25.0-35.0) pg MCHC 33.2 (31.0-37.0) g/dL RDW 12.8 (11.5-15.5) % Plt Count 297 (150-450) k/uL MPV 7.3 Neutrophils % 58 % Lymphocytes % 32 % Monocytes % 5 % Eosinophils % 2 % Basophils % 1 % Neutrophils # 6.1 (1.3-7.7) k/uL Lymphocytes # 3.4 (1.0-4.8) k/uL Monocytes # 0.5 (0-1.0) k/uL Eosinophils # 0.2 (0-0.7) k/uL Basophils # 0.1 (0-0.2) k/uL Macrocytosis Marked A Sodium 140 (137-145) mmol/L Potassium 3.8 (3.5-5.1) mmol/L Chloride 106 (98-107) mmol/L Carbon Dioxide 24 (22-30) mmol/L Anion Gap 10 mmol/L BUN 11 (9-20) mg/dL Creatinine 0.81 (0.66-1.25) mg/dL Est GFR (CKD-EPI)AfAm >90 (>60 ml/min/1.73 sqM) Est GFR (CKD-EPI)NonAf >90 (>60 ml/min/1.73 sqM) Glucose 111 H (74-99) mg/dL Calcium 10.1 (8.4-10.2) mg/dL Total Bilirubin 0.7 (0.2-1.3) mg/dL AST 64 H (17-59) U/L ALT 75 H (4-49) U/L Alkaline Phosphatase 174 H (38-126) U/L Total Protein 9.1 H (6.3-8.2) g/dL Albumin 5.3 H (3.5-5.0) g/dL Amylase 70 (30-110) U/L Lipase 83 (23-300) U/L Urine Color Yellow Urine Appearance Cloudy (Clear) Urine pH 5.5 (5.0-8.0) Ur Specific [place] 1.027 (1.001-1.035) Urine Protein 2+ H (Negative) Urine Glucose (UA) Negative (Negative) Urine Ketones Negative (Negative) Urine Blood Negative (Negative) Urine Nitrite Negative (Negative) Urine Bilirubin Negative (Negative) Urine Urobilinogen 2.0 (<2.0) mg/dL Ur Leukocyte Esterase Negative (Negative) Urine RBC 1 (0-5) /hpf Urine WBC 3 (0-5) /hpf Ur Squamous Epith Cells 1 (0-4) /hpf Urine Mucus Many H (None) /hpf Serum Alcohol <10 mg/dL Disposition Clinical Impression: Hypertension Disposition: HOME SELF-CARE Condition: Good Instructions (If sedation given, give patient instructions): Hypertension (ED) Additional Instructions: Take your hypertensive medication, Catapres, as prescribed. Follow-up with your primary care doctor next week. Return to the emergency room with any new or concerning symptoms. Prescriptions: cloNIDine HCL [Catapres] 0.1 mg PO BID 30 Days #60 tab Is patient prescribed a controlled substance at d/c from ED?: No Referrals: None,Stated [Primary Care Provider] - 1-2 days
[2021-12-31] MEDS ORDERED: LABETALOL SYRINGE 5 MG/ML IVP STA (10:58)
[2021-12-31 11:35] LABS: Basophils # (A) 0.1 k/uL (0-0.2); Basophils % (A) 1 %; Eosinophils # (A) 0.2 k/uL (0-0.7); Eosinophils % (A) 2 %; HCT 46.9 % (39.0-53.0); HGB 15.6 gm/dL (13.0-17.5); Lymphocytes # (A) 3.4 k/uL (1.0-4.8); Lymphocytes % (A) 32 %; MCH 38.3 pg (25.0-35.0); MCHC 33.2 g/dL (31.0-37.0); MCV 115.6 fL (80.0-100.0); Macrocytosis Marked; Mean Platelet Volume 7.3; Monocytes # (A) 0.5 k/uL (0-1.0); Monocytes % (A) 5 %; Neutrophils # (A) 6.1 k/uL (1.3-7.7); Neutrophils % (A) 58 %; Platelet Count 297 k/uL (150-450); RBC 4.06 m/uL (4.30-5.90); RDW 12.8 % (11.5-15.5); WBC 10.5 k/uL (3.8-10.6)
[2021-12-31 11:46] LABS: Appearance,Urine Cloudy (Clear); Bilirubin,Urine Negative (Negative); Blood,Urine Negative (Negative); Color,Urine Yellow; Glucose,Urine (UA) Negative (Negative); Ketones,Urine Negative (Negative); Leukocyte Esterase,Urine Negative (Negative); Mucus,Urine Many /hpf; Nitrite,Urine Negative (Negative); PH, Urine 5.5 (5.0-8.0); Protein,Urine 2+ (Negative); RBC,Urine 1 /hpf (0-5); Specific Gravity,Urine 1.027 (1.001-1.035); Squamous Epithelial Cell,Urine 1 /hpf (0-4); WBC,Urine 3 /hpf (0-5)
[2021-12-31 11:47] LABS: ALT 75 U/L (4-49); AST 64 U/L (17-59); African American GFR (CKD) >90 (>60 ml/min/1.73 sqM); Albumin 5.3 g/dL (3.5-5.0); Alcohol <10 mg/dL; Alkaline Phosphatase 174 U/L (38-126); Amylase 70 U/L (30-110); Anion Gap 10 mmol/L; Blood Urea Nitrogen 11 mg/dL (9-20); Calcium 10.1 mg/dL (8.4-10.2); Carbon Dioxide 24 mmol/L (22-30); Chloride 106 mmol/L (98-107); Glucose 111 mg/dL (74-99); Lipase 83 U/L (23-300); Non-African American GFR(CKD) >90 (>60 ml/min/1.73 sqM); Potassium 3.8 mmol/L (3.5-5.1); Sodium 140 mmol/L (137-145); Total Bilirubin 0.7 mg/dL (0.2-1.3); Total Protein 9.1 g/dL (6.3-8.2)
[2021-12-31 11:57] VITALS: BP 174/109
== END 2021-12-31 12:13 | disposition home or self-care (01) ==
LOC: EC 10:29
DX: I10 Essential (primary) hypertension (principal); I16.0 Hypertensive urgency; F17.210 Nicotine dependence, cigarettes, uncomplicated; F12.90 Cannabis use, unspecified, uncomplicated
CPT/HCPCS: 36415; 80053; 82150; 83690; 85025; 81001; 80320; 99284; 96374; 96375 ×2; 96361; J2405

== ENCOUNTER 2022-01-17 14:37 | Emergency (ER) | payer OTHER ==
[2022-01-17] MEDS ORDERED: SODIUM CHLORIDE 0.9% 1,000 ML IV STA (15:16)
[2022-01-17] MEDS ORDERED: HYDROmorphone 0.5 MG/0.5 ML SYRINGE IVP STA (15:16)
[2022-01-17] MEDS ORDERED: LORazepam 2 MG/ML INJ IV PRN ×3 (15:19)
[2022-01-17] MEDS ORDERED: THIAMINE 100 MG/ML 2 ML VIAL IM STA (15:19)
[2022-01-17 15:46] LABS: Basophils % (A) 1 %; Eosinophils # (A) 0.2 k/uL (0-0.7); Eosinophils % (A) 2 %; HCT 42.5 % (39.0-53.0); HGB 14.8 gm/dL (13.0-17.5); Lymphocytes # (A) 2.4 k/uL (1.0-4.8); Lymphocytes % (A) 27 %; MCH 38.3 pg (25.0-35.0); MCHC 34.7 g/dL (31.0-37.0); Macrocytosis Marked; Mean Platelet Volume 7.3; Monocytes # (A) 0.5 k/uL (0-1.0); Monocytes % (A) 5 %; Neutrophils # (A) 5.6 k/uL (1.3-7.7); Neutrophils % (A) 63 %; Platelet Count 313 k/uL (150-450); RBC 3.85 m/uL (4.30-5.90); WBC 8.9 k/uL (3.8-10.6)
[2022-01-17 15:49] LABS: Appearance,Urine Turbid (Clear); Bilirubin,Urine Negative (Negative); Blood,Urine Negative (Negative); Budding Yeast,Urine Occasional /hpf; Color,Urine Yellow; Glucose,Urine (UA) Negative (Negative); Ketones,Urine Negative (Negative); Leukocyte Esterase,Urine Negative (Negative); Mucus,Urine Occasional /hpf; Nitrite,Urine Negative (Negative); Protein,Urine 1+ (Negative); Specific Gravity,Urine 1.022 (1.001-1.035); Squamous Epithelial Cell,Urine <1 /hpf (0-4); Urobilinogen,Urine <2.0 mg/dL (<2.0)
[2022-01-17 15:50] LABS: MCV 110.3 fL (80.0-100.0)
[2022-01-17 15:57] LABS: INR 1.2 (<1.2); Partial Thromboplastin Time 26.2 sec (22.0-30.0); Prothrombin Time 12.9 sec (9.0-12.0)
--- NOTE | 2022-01-17 16:02 | XR ---
EXAMINATION TYPE: XR chest 2V DATE OF EXAM: 01/17/2022 COMPARISON: 07/05/2021 HISTORY: Rib pain TECHNIQUE: FINDINGS: Heart and mediastinum are normal. Lungs are clear. Diaphragm is normal. Bony thorax appears normal. IMPRESSION: Normal chest. No change.
[2022-01-17 16:05] LABS: ALT 72 U/L (4-49); AST 99 U/L (17-59); African American GFR (CKD) >90 (>60 ml/min/1.73 sqM); Alcohol <10 mg/dL; Alkaline Phosphatase 176 U/L (38-126); Anion Gap 14 mmol/L; Blood Urea Nitrogen 11 mg/dL (9-20); Calcium 9.8 mg/dL (8.4-10.2); Carbon Dioxide 22 mmol/L (22-30); Chloride 102 mmol/L (98-107); Glucose 109 mg/dL (74-99); Lipase 125 U/L (23-300); Non-African American GFR(CKD) >90 (>60 ml/min/1.73 sqM); Potassium 3.8 mmol/L (3.5-5.1); Sodium 138 mmol/L (137-145); Total Bilirubin 0.6 mg/dL (0.2-1.3); Total Protein 8.2 g/dL (6.3-8.2)
--- NOTE | 2022-01-17 16:25 | CT ---
EXAMINATION TYPE: CT abdomen pelvis w con DATE OF EXAM: 01/17/2022 COMPARISON: 01/28/2015 HISTORY: LUQ pain CT DLP: 1205.1 mGycm Automated exposure control for dose reduction was used. CONTRAST: Performed with IV Contrast, patient injected with 100 mL of Isovue 300. Images obtained from the diaphragm to the floor the pelvis with the IV contrast. The lung bases are clear. No pleural effusion. Heart size is normal. No pericardial effusion. Liver s pleen and stomach pancreas gallbladder appear normal. The bile ducts are not dilated. There is no adrenal mass. Kidneys have normal size and contour. No hydronephrosis. Ureters are not di lated. No retroperitoneal adenopathy. Delayed images show normal renal excretion. The bladder distend s smoothly. No inguinal hernia. No free fluid in the pelvis. Appendix appears normal. There is no mesenteric edema. No ascites or free air. No sign of a bowel obstruction. The lumbar vertebrae have normal spacing and alignment. Posterior elements are intact. The hip joints are intact. Bony pelvis is intact. IMPRESSION: Normal CT scan of the abdomen and pelvis.
--- NOTE | 2022-01-17 17:21 | ED ---
Abdominal Pain HPI - General Chief Complaint: Abdominal Pain Stated Complaint: L side pain Time Seen by Provider: 01/17/22 15:01 Source: patient Mode of arrival: ambulatory Limitations: no limitations - History of Present Illness Initial Comments: Patient is a 31-year-old male with a past medical history significant for alcohol use disorder and kidney stones who presents to the emergency department with a chief complaint of left abdominal pain. Patient states symptoms started at 6 AM this morning. Patient states the pain is intermittent, worse with coughing. States he was diagnosed with COVID-19 2 weeks ago and still experiences occasional coughing. Has fever, chills, congestion, sore throat, shortness of breath, nausea, vomiting, diarrhea, burning with urination, blood in the urine. Last bowel movement was this morning which patient states was normal. Admits to daily alcohol use for the past 2 weeks. Drinks 1 pint of vodka tonight. Last drink was this morning. Patient does admit to history of alcohol withdrawal however does not feel like he is withdrawing now. Denies history of alcohol withdrawal seizures. Denies history of pancreatitis. - Related Data Previous Rx's Medication Instructions Recorded cloNIDine HCL [Catapres] 0.1 mg PO BID 30 Days #60 tab 12/31/21 Allergies Allergy/AdvReac Type Severity Reaction Status Date / Time No Known Allergies Allergy Verified 01/17/22 14:44 Review of Systems ROS Statement: Those systems with pertinent positive or pertinent negative responses have been documented in the HPI. ROS Other: All systems not noted in ROS Statement are negative. Past Medical History Past Medical History: Hypertension Additional Past Medical History / Comment(s): Nephrolithiasis, ETOH abuse with past withdrawal tremors, past alcoholic hepatitis/acute severe kidney injury/hyperphosphatemia/acute metabolic encephalopathy from renal failure. History of Any Multi-Drug Resistant Organisms: None Reported Past Surgical History: Tonsillectomy Past Anesthesia/Blood Transfusion Reactions: No Reported Reaction Past Psychological History: No Psychological Hx Reported Smoking Status: Current every day smoker Past Alcohol Use History: Heavy Past Drug Use History: Marijuana - Past Family History Father Family Medical History: Myocardial Infarction ([place]) Additional Family Medical History / Comment(s): at age 4949 years old [place] Mother Family Medical History: Hypertension General Exam Limitations: no limitations General appearance: alert, in no apparent distress Head exam: Present: atraumatic, normocephalic, normal inspection Eye exam: Present: normal appearance, PERRL, EOMI. Absent: scleral icterus, conjunctival injection, periorbital swelling Respiratory exam: Present: normal lung sounds bilaterally, other (left lower anterior rib tenderness to palpation ). Absent: respiratory distress, wheezes, rales, rhonchi, stridor, chest wall tenderness Cardiovascular Exam: Present: regular rate, normal rhythm, normal heart sounds. Absent: systolic murmur, diastolic murmur, rubs, gallop, clicks GI/Abdominal exam: Present: soft, tenderness (LUQ), normal bowel sounds. Absent: distended, guarding, rebound, rigid Neurological exam: Present: alert, oriented X3, CN II-XII intact Psychiatric exam: Present: normal affect, normal mood Skin exam: Present: warm, dry, intact, normal color. Absent: rash Course Vital Signs 01/17/22 01/17/22 14:42 17:57 Temperature 98.2 F 98.1 F Pulse Rate 101 H 90 Respiratory 18 15 Rate Blood Pressure 172/97 173/96 O2 Sat by Pulse 99 98 Oximetry Medical Decision Making - Medical Decision Making This is a 31-year-old male who presents to the emergency department with left abdominal pain. Thorough history and examination were performed. There is tenderness with palpation of the left upper quadrant of the abdomen as well as the left lower anterior ribs. Pain is reproducible with twisting of the torso. Patient denies shortness of breath and chest pain. Last drink alcohol with this morning. No history and tremors or tongue fasciculations. Laboratory studies obtained. Patient has mildly elevated liver enzymes. Alk phos high at 176, ALT high at 72, AST high at 99. Troponin is within normal limits. Chest x-ray is negative for acute process. CT of the abdomen and pelvis with contrast is unremarkable. Pain controlled in the emergency department. At this time there are no diagnostic studies to explain patient's symptoms. Patient will be discharged with instruction to follow-up with primary care provider. Patient states he has been cutting back on alcohol slowly to avoid withdrawal. He is encouraged to continue this process. He does not seek referral to [facility] or other rehab services. Dr. Thompson is my attending. - Lab Data Result diagrams: 01/17/22 15:27 01/17/22 15:27 Lab Results 01/17/22 01/17/22 01/17/22 Range/Units 15:27 15:27 15:27 WBC 8.9 (3.8-10.6) k/uL RBC 3.85 L (4.30-5.90) m/uL Hgb 14.8 (13.0-17.5) gm/dL Hct 42.5 (39.0-53.0) % MCV 110.3 H D (80.0-100.0) fL MCH 38.3 H (25.0-35.0) pg MCHC 34.7 (31.0-37.0) g/dL RDW 13.0 (11.5-15.5) % Plt Count 313 (150-450) k/uL MPV 7.3 Neutrophils % 63 % Lymphocytes % 27 % Monocytes % 5 % Eosinophils % 2 % Basophils % 1 % Neutrophils # 5.6 (1.3-7.7) k/uL Lymphocytes # 2.4 (1.0-4.8) k/uL Monocytes # 0.5 (0-1.0) k/uL Eosinophils # 0.2 (0-0.7) k/uL Basophils # 0.0 (0-0.2) k/uL Macrocytosis Marked A PT 12.9 H (9.0-12.0) sec INR 1.2 H (<1.2) APTT 26.2 (22.0-30.0) sec Sodium (137-145) mmol/L Potassium (3.5-5.1) mmol/L Chloride (98-107) mmol/L Carbon Dioxide (22-30) mmol/L Anion Gap mmol/L BUN (9-20) mg/dL Creatinine (0.66-1.25) mg/dL Est GFR (CKD-EPI)AfAm (>60 ml/min/1.73 sqM) Est GFR (CKD-EPI)NonAf (>60 ml/min/1.73 sqM) Glucose (74-99) mg/dL Calcium (8.4-10.2) mg/dL Total Bilirubin (0.2-1.3) mg/dL AST (17-59) U/L ALT (4-49) U/L Alkaline Phosphatase (38-126) U/L Troponin I (0.000-0.034) ng/mL Total Protein (6.3-8.2) g/dL Albumin (3.5-5.0) g/dL Lipase (23-300) U/L Urine Color Yellow Urine Appearance Turbid (Clear) Urine pH 6.0 (5.0-8.0) Ur Specific [place] 1.022 (1.001-1.035) Urine Protein 1+ H (Negative) Urine Glucose (UA) Negative (Negative) Urine Ketones Negative (Negative) Urine Blood Negative (Negative) Urine Nitrite Negative (Negative) Urine Bilirubin Negative (Negative) Urine Urobilinogen <2.0 (<2.0) mg/dL Ur Leukocyte Esterase Negative (Negative) Urine WBC Clumps Few H (None) /hpf Ur Squamous Epith Cells <1 (0-4) /hpf Urine Mucus Occasional H (None) /hpf Urine Yeast (Budding) Occasional H (None) /hpf Serum Alcohol mg/dL 01/17/22 01/17/22 Range/Units 15:27 15:27 WBC (3.8-10.6) k/uL RBC (4.30-5.90) m/uL Hgb (13.0-17.5) gm/dL Hct (39.0-53.0) % MCV (80.0-100.0) fL MCH (25.0-35.0) pg MCHC (31.0-37.0) g/dL RDW (11.5-15.5) % Plt Count (150-450) k/uL MPV Neutrophils % % Lymphocytes % % Monocytes % % Eosinophils % % Basophils % % Neutrophils # (1.3-7.7) k/uL Lymphocytes # (1.0-4.8) k/uL Monocytes # (0-1.0) k/uL Eosinophils # (0-0.7) k/uL Basophils # (0-0.2) k/uL Macrocytosis PT (9.0-12.0) sec INR (<1.2) APTT (22.0-30.0) sec Sodium 138 (137-145) mmol/L Potassium 3.8 (3.5-5.1) mmol/L Chloride 102 (98-107) mmol/L Carbon Dioxide 22 (22-30) mmol/L Anion Gap 14 mmol/L BUN 11 (9-20) mg/dL Creatinine 0.71 (0.66-1.25) mg/dL Est GFR (CKD-EPI)AfAm >90 (>60 ml/min/1.73 sqM) Est GFR (CKD-EPI)NonAf >90 (>60 ml/min/1.73 sqM) Glucose 109 H (74-99) mg/dL Calcium 9.8 (8.4-10.2) mg/dL Total Bilirubin 0.6 (0.2-1.3) mg/dL AST 99 H (17-59) U/L ALT 72 H (4-49) U/L Alkaline Phosphatase 176 H (38-126) U/L Troponin I <0.012 (0.000-0.034) ng/mL Total Protein 8.2 (6.3-8.2) g/dL Albumin 5.0 (3.5-5.0) g/dL Lipase 125 (23-300) U/L Urine Color Urine Appearance (Clear) Urine pH (5.0-8.0) Ur Specific [place] (1.001-1.035) Urine Protein (Negative) Urine Glucose (UA) (Negative) Urine Ketones (Negative) Urine Blood (Negative) Urine Nitrite (Negative) Urine Bilirubin (Negative) Urine Urobilinogen (<2.0) mg/dL Ur Leukocyte Esterase (Negative) Urine WBC Clumps (None) /hpf Ur Squamous Epith Cells (0-4) /hpf Urine Mucus (None) /hpf Urine Yeast (Budding) (None) /hpf Serum Alcohol <10 mg/dL Disposition Clinical Impression: Abdominal pain, Rib pain on left side, Alcohol use disorder Disposition: HOME SELF-CARE Condition: Good Instructions (If sedation given, give patient instructions): Abdominal Pain (ED), Musculoskeletal Pain (ED) Additional Instructions: Please take Tylenol or Motrin for pain. Follow-up with primary care provider in one to 2 days. It is awesome that you are cutting back on drinking. Continue to cut back at a slow pace. Return to the emergency department if you experience new, concerning, or worsening symptoms. Is patient prescribed a controlled substance at d/c from ED?: No Referrals: None,Stated [Primary Care Provider] - 1-2 days Time of Disposition: 17:21
[2022-01-17] MEDS ORDERED: THIAMINE 100 MG TAB PO SCH (17:30)
[2022-01-17 17:58] VITALS: BP 173/96; PULSE 90; RESP 15; TEMP 98.1
== END 2022-01-17 18:00 | disposition home or self-care (01) ==
LOC: EC 14:37
DX: F10.20 Alcohol dependence, uncomplicated (principal); R10.9 Unspecified abdominal pain; R07.81 Pleurodynia; R05.9 Cough, unspecified; R50.9 Fever, unspecified; R09.89 Other specified symptoms and signs involving the circulatory and respiratory systems; R74.8 Abnormal levels of other serum enzymes; I10 Essential (primary) hypertension; F17.200 Nicotine dependence, unspecified, uncomplicated; Y90.0 Blood alcohol level of less than 20 mg/100 ml; Z86.16 Personal history of COVID-19
CPT/HCPCS: 36415; 93005; 80053; 83690; 84484; 85025; 85610; 85730; 81001; 80320; 71046; 74177; 99284; 96374; 96361; 96372; J3411; J1170; Q9967

== ENCOUNTER → 2022-01-22 | Outpatient (CLI) | payer OTHER ==
--- NOTE | 2022-01-22 22:10 | XR ---
EXAMINATION TYPE: XR ribs LT DATE OF EXAM: 01/22/2022 4:51 PM INDICATION: Patient age:Male; 31 years old; Reason for study: R07.81 Pleurodynia; COMPARISON: None TECHNIQUE: Frontal and oblique views of the left ribs with frontal chest radiograph. FINDINGS: The ribs have a normal appearance. No evidence of fracture. Overall, the lungs are clear. The cardiac silhouette is normal in size. The remaining osseous structures are intact. IMPRESSION RIBS: No acute osseous pathology.
== END | disposition home or self-care (01) ==
LOC: RADXRMAIN 16:38
PROVIDERS: ATTEND Nurse Practitioner Family
DX: R07.81 Pleurodynia (principal)

== ENCOUNTER 2022-03-29 16:46 | Emergency (ER) | payer OTHER ==
[2022-03-29 17:12] VITALS: BP 187/90; PULSE 110; RESP 20; TEMP 97.6
--- NOTE | 2022-03-29 18:06 | XR ---
EXAMINATION TYPE: XR ankle complete RT, XR foot complete RT DATE OF EXAM: 03/29/2022 5:47 PM INDICATION: Patient age:Male; 31 years old; Reason for study: fall, swelling and pain; COMPARISON: None TECHNIQUE: The right foot and ankle were imaged in frontal, lateral and oblique projections. FINDINGS: Is acute fracture through the fifth metatarsal with mild displacement up to 3.3 mm. The joint spaces are well-preserved without evidence of subluxation or dislocation. Kager's fat pad is intact. Mild so ft tissue swelling around the foot and ankle. No radiopaque foreign bodies are identified. IMPRESSION: 1. Acute spiral fracture through the right fifth metatarsal with mild displacement. 2. Subcutaneous swelling around the foot and ankle likely secondary to #1
[2022-03-29] MEDS ORDERED: HYDROcodone/APAP 5-325MG 1 EACH TAB PO STA (18:39)
[2022-03-29] MEDS ORDERED: ACET/COD 300 MG/30 MG STARTER PACK 6 TAB BTL PO STA (18:51)
--- NOTE | 2022-03-29 18:58 | ED ---
General Adult HPI - General Chief complaint: Fall Stated complaint: Fall,foot injury Time Seen by Provider: 03/29/22 18:30 Source: patient, RN notes reviewed, old records reviewed Mode of arrival: ambulatory Limitations: no limitations - History of Present Illness Initial comments: Patient is a 31-year-old male with past medical history remarkable for h ypertension who presents emergency Department complaining of right foot pain. Patient was walking at home last night when he missed the bottom step and rolled his ankle on the right side. States it inverted. Has been having pain along the dorsal aspect on the lateral side of the foot radiating up to his right ankle. Is been gingerly walking on it since last night. Is concerned he may have sprained it or possibly broken something. Presents for further evaluation at this time. Denies any sensory deficits. Denies any skin changes other than swelling over the top of his foot. Denies any numbness. Denies any strength deficits other than secondary to pain with movement of his right foot as well as ankle. Presents for further evaluation at this time. Denies any other injuries. Did not hit his head. Denies any back pain, abdominal pain, chest pain, shortness of breath. He is not on blood thinners. - Related Data Previous Rx's Medication Instructions Recorded cloNIDine HCL [Catapres] 0.1 mg PO BID 30 Days #60 tab 12/31/21 Allergies Allergy/AdvReac Type Severity Reaction Status Date / Time No Known Allergies Allergy Verified 01/17/22 14:44 Review of Systems ROS Statement: Those systems with pertinent positive or pertinent negative responses have been documented in the HPI. Review of Systems: CONST: Denies fever EYES: Denies blurry vision ENT: Denies nasal congestion C/V: Denies Chest pain RESP: Denies shortness of breath GI: Denies abdominal pain : Denies dysuria SKIN: Denies rash. MSK: Endorses right foot pain. NEURO: Denies headache ROS Other: All systems not noted in ROS Statement are negative. Past Medical History Past Medical History: Hypertension Additional Past Medical History / Comment(s): Nephrolithiasis, ETOH abuse with past withdrawal tremors, past alcoholic hepatitis/acute severe kidney injury/hyperphosphatemia/acute metabolic encephalopathy from renal failure. History of Any Multi-Drug Resistant Organisms: None Reported Past Surgical History: Tonsillectomy Past Anesthesia/Blood Transfusion Reactions: No Reported Reaction Past Psychological History: No Psychological Hx Reported Smoking Status: Current every day smoker Past Alcohol Use History: Heavy Past Drug Use History: Marijuana - Past Family History Father Family Medical History: Myocardial Infarction ([place]) Additional Family Medical History / Comment(s): at age 4949 years old [place] Mother Family Medical History: Hypertension General Exam - General Exam Comments Initial Comments: General: Appears in mild distress secondary to pain. HEAD: Normal with no signs of head trauma. EYES: PERRLA, EOMI ENT: Hearing grossly intact RESPIRATORY:. No respiratory distress C/V: Peripheral pulses 2+ and intact throughout ABD: Nondistended EXT: Reduced range of motion of the right ankle and foot secondary to pain. No obvious deformity. Tenderness along the fourth and fifth metatarsals on the dorsal aspect of his foot. SKIN: Edema located over the dorsal aspect of the patient's right foot primarily laterally. No other skin changes. Good capillary refill to the lateral toes. NEURO: Alert and oriented 4. Neurovascularly intact throughout. Limitations: no limitations Course Vital Signs 03/29/22 03/29/22 17:08 17:12 Temperature 97.6 F Pulse Rate 110 H Respiratory 20 Rate Blood Pressure 187/90 O2 Sat by Pulse 99 Oximetry Procedures - Orthopedic Splinting/Casting Injury #1 Side: right Lower Extremity Injury Location: short leg Lower Extremity Immobilizer: posterior splint Other Orthopedic Equipment: crutches Additional Comments: neurovascularly intact after procedure. Capillary refill <2s in distal toes. Sensation intact. Medical Decision Making - Medical Decision Making Patient presents to the emergency department over concern for right foot or right ankle pain. I evaluated the patient when I wheeled him from triage to a fast track room. This was after x-rays were obtained. Right foot and ankle x- ray revealed an acute spiral fracture through the right fifth metatarsal with mild displacement. There is also subcutaneous swelling. When I evaluated the patient, I updated him on his x-ray findings. He was given [place] for pain control. I contacted orthopedics, P [facility] who was in agreement with the plan for follow-up with Dr. Martines tomorrow after posterior short leg splint and crutches. Patient will remain nonweightbearing. Patient was in agreement this plan. Vital signs are within except limits. Splinting was completed by myself. Tolerated it well. Neurovascular intact following the procedure. Patient will be given a starter pack Tylenol threes for home. Discussed rest, elevation, icing. Work note will be provided to the patient to follow up with orthopedic surgery. He was in agreement with this plan. I instructed the patient to follow up with their PCP in the next 1-3 days. I provided contact information for follow up with orthopedic surgery. I explained that the patient should return to the emergency department if they experience any worsening symptoms. Strict return precautions were discussed with the patient. The patient expressed understanding of these instructions. I answered all questions that the patient had. The patient was discharged home in [facility] with their prescriptions and follow up information. Disposition Clinical Impression: Fall, Fracture of fifth metatarsal bone of right foot Disposition: HOME SELF-CARE Condition: Fair Instructions (If sedation given, give patient instructions): Foot Fracture in Adults (ED), Fall Prevention (ED) Is patient prescribed a controlled substance at d/c from ED?: No Referrals: Gabe Flynn DO [Primary Care Provider] - 1-2 days Ang Martines MD [STAFF PHYSICIAN] - 1-2 days Time of Disposition: 18:50
== END 2022-03-29 19:14 | disposition home or self-care (01) ==
LOC: EC 16:46
DX: S92.351A Displaced fracture of fifth metatarsal bone, right foot, initial encounter for closed fracture (principal); W10.8XXA Fall (on) (from) other stairs and steps, initial encounter; X50.9XXA Other and unspecified overexertion or strenuous movements or postures, initial encounter; Y92.89 Other specified places as the place of occurrence of the external cause
CPT/HCPCS: 29515; 99283

== ENCOUNTER 2022-05-30 06:59 | Emergency (ER) | payer OTHER ==
[2022-05-30] MEDS ORDERED: ASPIRIN 81 MG PO STA (07:22)
[2022-05-30] MEDS ORDERED: SODIUM CHLORIDE 0.9% 1,000 ML IV STA (07:22)
[2022-05-30] MEDS ORDERED: KETOROLAC 15 MG/ML 1 ML VIAL IVP STA (07:22)
--- NOTE | 2022-05-30 07:29 | ED ---
General Adult HPI - General Chief complaint: Chest Pain Stated complaint: Chest pain Time Seen by Provider: 05/30/22 07:16 Source: patient, RN notes reviewed, old records reviewed Mode of arrival: ambulatory Limitations: no limitations - History of Present Illness Initial comments: Patient is a 31-year-old male who presents emergency Department complaining of a 2 to three-day history of left-sided chest pain. States this started when he went back to work and was lifting heavy objects. States he felt something pull in left-sided distress. Believes he may have pulled a muscle. However he is concerned regarding his heart, patient states he does have a family medical history of early MIs in their 40s, including his father. Denies any shortness of breath. States the pain is worse with movement of his left arm, or torso. Denies any nausea or vomiting. Denies any radiation of the pain. States is mostly located over the left pectoral muscle. States he tried to drink alcohol last night which did not help with the pain. States yesterday her Vicodin yesterday which minimally helped with the pain. States he does have a remote history of alcohol withdrawals, however he does not drink alcohol on a regular basis. Somewhat relapsed yesterday. Has no other acute complaints at this time. Since or further evaluation at this time. Denies any nausea, vomiting, abdominal pain, shortness of breath, headaches, weakness, numbness. No other acute complaints at this time. - Related Data Previous Rx's Medication Instructions Recorded cloNIDine HCL [Catapres] 0.1 mg PO BID 30 Days #60 tab 12/31/21 methocarbamoL [Robaxin] 500 mg PO BID PRN 8 Days #4 tab 05/30/22 Allergies Allergy/AdvReac Type Severity Reaction Status Date / Time No Known Allergies Allergy Verified 05/30/22 07:04 Review of Systems ROS Statement: Those systems with pertinent positive or pertinent negative responses have been documented in the HPI. Review of Systems: CONST: Denies fever EYES: Denies blurry vision ENT: Denies nasal congestion C/V: Endorses chest wall pain. RESP: Denies shortness of breath GI: Denies abdominal pain : Denies dysuria SKIN: Denies rash. MSK: Denies joint pain. NEURO: Denies headache ROS Other: All systems not noted in ROS Statement are negative. Past Medical History Past Medical History: Hypertension Additional Past Medical History / Comment(s): Nephrolithiasis, ETOH abuse with past withdrawal tremors, past alcoholic hepatitis/acute severe kidney injury/hyperphosphatemia/acute metabolic encephalopathy from renal failure. History of Any Multi-Drug Resistant Organisms: None Reported Past Surgical History: Tonsillectomy Past Anesthesia/Blood Transfusion Reactions: No Reported Reaction Past Psychological History: No Psychological Hx Reported Smoking Status: Current every day smoker Past Alcohol Use History: Abuse, Daily, Heavy Past Drug Use History: Marijuana - Past Family History Father Family Medical History: Myocardial Infarction ([place]) Additional Family Medical History / Comment(s): at age 4949 years old [place] Mother Family Medical History: Hypertension General Exam - General Exam Comments Initial Comments: General: Appears in no acute distress. HEAD: Normal with no signs of head trauma. EYES: PERRLA, EOMI, conjunctiva normal, no discharge. ENT: Hearing grossly intact, normal oropharynx. RESPIRATORY: Clear breath sounds bilaterally. No wheezes, rales, or rhonchi. C/V: Regular rate and rhythm. S1 and S2 auscultated, no edema, peripheral pulses 2+ and intact throughout. Chest pain reproducible on palpation over the left chest, primarily the left pectoral muscle.. Reproducible with movements of the left arm, as well as twisting of the torso. ABD: Abd is soft, nontender, nondistended EXT: Normal range of motion, no obvious deformity SKIN: No rashes or lesions observed on exposed skin. NEURO: Alert and oriented 4. No focal deficits. Appears acutely intoxicated with alcohol at this time.No tremors. No tongue fasciculations. No evidence of alcohol withdrawal on physical exam. Limitations: no limitations Course Vital Signs 05/30/22 05/30/22 07:01 09:33 Temperature 98 F 98.2 F Pulse Rate 117 H 84 Respiratory 20 16 Rate Blood Pressure 167/119 124/77 O2 Sat by Pulse 98 95 Oximetry Medical Decision Making - Medical Decision Making Based on the patient's presentation and physical exam, I'm concerned for what appears to be a chest wall muscle strain for the patient, however, rule out cardiac etiology at this time considering that he does have a family medical history of early onset heart disease. I believe this is less likely but the patient is concerned and therefore we will obtain cardiac labs, workup including blood work, EKG, chest x-ray. He'll be symptomatically treated with aspirin, Toradol, 1 L fluid bolus. Patient was in agreement this plan. Vital signs within acceptable limits. He is acutely intoxicated we will obtain an alcohol level. Patient was in agreement with this. States he does have a ride home if needed. Patient does not appear to be in alcohol withdrawal symptoms this time. Does appear slightly anxious. We will reevaluate vital signs following Initial workup. EKG shows no signs of acute ischemia.Chest x-ray as interpreted by myself reveals no evidence of acute cardiopulmonary process, infiltrate. Laboratory studies are remarkable for a undetectable troponin. Patient is acutely intoxicant with alcohol at 274. Patient is chronically elevated AST's, alk phos with no intra-abdominal symptoms. On reevaluation, patient's pain is resolved. We discussed his workup. Tata chand's mother is at bedside at this time. We do believe it is likely musculoskeletal in nature causing his pain. Heart scores low at 1. Symptoms been ongoing for multiple days and cardiac work up is unremarkable. I believe it is safe for him to be discharged home with outpatient follow-up. He was in agreement this plan. He will be discharged home in the care of his mother who is driving him as he is acutely intoxicated. She was in agreement this plan. I answered all questions that he had. Patient will be discharged home at this time. I will provide the patient with a prescription for Robaxin. I instructed the patient to follow up with their PCP in the next 1-3 days. I explained that the patient should return to the emergency department if they experience any worsening symptoms. Strict return precautions were discussed with the patient. The patient expressed understanding of these instructions. I answered all questions that the patient had. The patient was discharged home in good condition with their prescriptions and follow up information. - Lab Data Result diagrams: 05/30/22 07:33 05/30/22 07:33 Lab Results 05/30/22 05/30/22 05/30/22 Range/Units 07:33 07:33 07:33 WBC 10.4 (3.8-10.6) k/uL RBC 4.17 L (4.30-5.90) m/uL Hgb 16.2 (13.0-17.5) gm/dL Hct 44.5 (39.0-53.0) % MCV 106.6 H (80.0-100.0) fL MCH 38.7 H (25.0-35.0) pg MCHC 36.3 (31.0-37.0) g/dL RDW 13.2 (11.5-15.5) % Plt Count 283 (150-450) k/uL MPV 7.4 Neutrophils % 53 % Lymphocytes % 36 % Monocytes % 5 % Eosinophils % 2 % Basophils % 1 % Neutrophils # 5.5 (1.3-7.7) k/uL Lymphocytes # 3.7 (1.0-4.8) k/uL Monocytes # 0.5 (0-1.0) k/uL Eosinophils # 0.2 (0-0.7) k/uL Basophils # 0.1 (0-0.2) k/uL Macrocytosis Moderate PT 12.1 H (9.0-12.0) sec INR 1.2 H (<1.2) APTT 28.6 (22.0-30.0) sec Sodium 144 (137-145) mmol/L Potassium 4.0 (3.5-5.1) mmol/L Chloride 107 (98-107) mmol/L Carbon Dioxide 22 (22-30) mmol/L Anion Gap 15 mmol/L BUN 9 (9-20) mg/dL Creatinine 0.84 (0.66-1.25) mg/dL Est GFR (CKD-EPI)AfAm >90 (>60 ml/min/1.73 sqM) Est GFR (CKD-EPI)NonAf >90 (>60 ml/min/1.73 sqM) Glucose 121 H (74-99) mg/dL Calcium 9.2 (8.4-10.2) mg/dL Magnesium 2.2 (1.6-2.3) mg/dL Total Bilirubin 0.5 (0.2-1.3) mg/dL AST 99 H (17-59) U/L ALT 91 H (4-49) U/L Alkaline Phosphatase 215 H (38-126) U/L Troponin I (0.000-0.034) ng/mL Total Protein 8.7 H (6.3-8.2) g/dL Albumin 5.0 (3.5-5.0) g/dL Serum Alcohol 274 H* mg/dL 12/18/22 Range/Units 07:33 WBC (3.8-10.6) k/uL RBC (4.30-5.90) m/uL Hgb (13.0-17.5) gm/dL Hct (39.0-53.0) % MCV (80.0-100.0) fL MCH (25.0-35.0) pg MCHC (31.0-37.0) g/dL RDW (11.5-15.5) % Plt Count (150-450) k/uL MPV Neutrophils % % Lymphocytes % % Monocytes % % Eosinophils % % Basophils % % Neutrophils # (1.3-7.7) k/uL Lymphocytes # (1.0-4.8) k/uL Monocytes # (0-1.0) k/uL Eosinophils # (0-0.7) k/uL Basophils # (0-0.2) k/uL Macrocytosis PT (9.0-12.0) sec INR (<1.2) APTT (22.0-30.0) sec Sodium (137-145) mmol/L Potassium (3.5-5.1) mmol/L Chloride (98-107) mmol/L Carbon Dioxide (22-30) mmol/L Anion Gap mmol/L BUN (9-20) mg/dL Creatinine (0.66-1.25) mg/dL Est GFR (CKD-EPI)AfAm (>60 ml/min/1.73 sqM) Est GFR (CKD-EPI)NonAf (>60 ml/min/1.73 sqM) Glucose (74-99) mg/dL Calcium (8.4-10.2) mg/dL Magnesium (1.6-2.3) mg/dL Total Bilirubin (0.2-1.3) mg/dL AST (17-59) U/L ALT (4-49) U/L Alkaline Phosphatase (38-126) U/L Troponin I <0.012 (0.000-0.034) ng/mL Total Protein (6.3-8.2) g/dL Albumin (3.5-5.0) g/dL Serum Alcohol mg/dL - EKG Data -: EKG Interpreted by Me EKG Comments: 12-lead Electrocardiogram Interpretation Note EKG was reviewed and interpreted by myself. 12-lead ECG performed at 0729 is interpreted by me as revealing normal sinus rhythm at a rate of 87 beats per minute. [place] is normal. MT interval is 156 ms, QRS duration is 89 ms, QTc is 403 ms.. There is isolated J-point elevation in lead V3 with no reciprocal changes. There were no acute ST or T wave abnormalities to suggest myocardial ischemia or injury. R wave progression across the precordium was satisfactory. By my interpretation this EKG is non-diagnostic for acute ischemia. When compared with EKG from January 2022, no significant change. Disposition Clinical Impression: Chest wall pain, Alcohol intoxication Disposition: HOME SELF-CARE Condition: Good Instructions (If sedation given, give patient instructions): Chest Wall Pain (ED) Prescriptions: methocarbamoL [Robaxin] 500 mg PO BID PRN 8 Days #4 tab PRN Reason: Pain Is patient prescribed a controlled substance at d/c from ED?: No Referrals: Gabe Flynn DO [STAFF PHYSICIAN] - 1-2 days Time of Disposition: 09:00
[2022-05-30 07:48] LABS: Basophils # (A) 0.1 k/uL (0-0.2); Basophils % (A) 1 %; Eosinophils # (A) 0.2 k/uL (0-0.7); Eosinophils % (A) 2 %; HCT 44.5 % (39.0-53.0); HGB 16.2 gm/dL (13.0-17.5); Lymphocytes # (A) 3.7 k/uL (1.0-4.8); Lymphocytes % (A) 36 %; MCH 38.7 pg (25.0-35.0); MCHC 36.3 g/dL (31.0-37.0); MCV 106.6 fL (80.0-100.0); Macrocytosis Moderate; Mean Platelet Volume 7.4; Monocytes # (A) 0.5 k/uL (0-1.0); Monocytes % (A) 5 %; Neutrophils # (A) 5.5 k/uL (1.3-7.7); Neutrophils % (A) 53 %; Platelet Count 283 k/uL (150-450); RBC 4.17 m/uL (4.30-5.90); RDW 13.2 % (11.5-15.5); WBC 10.4 k/uL (3.8-10.6)
[2022-05-30 07:56] LABS: INR 1.2 (<1.2); Partial Thromboplastin Time 28.6 sec (22.0-30.0); Prothrombin Time 12.1 sec (9.0-12.0)
[2022-05-30 08:02] LABS: ALT 91 U/L (4-49); AST 99 U/L (17-59); African American GFR (CKD) >90 (>60 ml/min/1.73 sqM); Alkaline Phosphatase 215 U/L (38-126); Anion Gap 15 mmol/L; Blood Urea Nitrogen 9 mg/dL (9-20); Calcium 9.2 mg/dL (8.4-10.2); Carbon Dioxide 22 mmol/L (22-30); Chloride 107 mmol/L (98-107); Glucose 121 mg/dL (74-99); Magnesium 2.2 mg/dL (1.6-2.3); Non-African American GFR(CKD) >90 (>60 ml/min/1.73 sqM); Sodium 144 mmol/L (137-145); Total Bilirubin 0.5 mg/dL (0.2-1.3); Total Protein 8.7 g/dL (6.3-8.2)
[2022-05-30 08:22] LABS: Alcohol 274 mg/dL
--- NOTE | 2022-05-30 09:04 | XR ---
EXAMINATION TYPE: XR chest 2V DATE OF EXAM: 05/30/2022 8:02 AM COMPARISON: Chest radiographs from 01/22/2022 TECHNIQUE: XR chest 2V Frontal and lateral views of the chest. CLINICAL INDICATION:Male, 31 years old with history of Chest Pain; FINDINGS: Lungs/Pleura: There is no evidence of pleural effusion, focal consolidation, or pneumothorax. Pulmonary vascularity: Unremarkable. Heart/mediastinum: Cardiomediastinal silhouette is unremarkable. Musculoskeletal: No acute osseous pathology. IMPRESSION: No acute cardiopulmonary disease/process.
[2022-05-30 09:34] VITALS: BP 124/77; PULSE 84; RESP 16; TEMP 98.2
== END 2022-05-30 09:34 | disposition home or self-care (01) ==
LOC: EC 06:59
DX: F10.129 Alcohol abuse with intoxication, unspecified (principal); R07.89 Other chest pain; I10 Essential (primary) hypertension; F17.200 Nicotine dependence, unspecified, uncomplicated; F12.90 Cannabis use, unspecified, uncomplicated; Y90.8 Blood alcohol level of 240 mg/100 ml or more
CPT/HCPCS: 36415; 93005; 80053; 83735; 84484; 85025; 85610; 85730; 80320; 71046; 99285; 96374; 96361; J1885

== ENCOUNTER 2022-08-27 12:19 | Emergency (ER) | payer OTHER ==
[2022-08-27 12:32] VITALS: TEMP 98.3
--- NOTE | 2022-08-27 13:00 | ED ---
General Adult HPI - General Chief complaint: Extremity Injury, Lower Stated complaint: Ankle Pain Time Seen by Provider: 08/27/22 12:49 Source: patient Mode of arrival: ambulatory Limitations: no limitations - History of Present Illness Initial comments: 31-year-old male presents with right ankle pain. Patient states that he had an ankle injury months ago. He denies new injury but states that he's been on his feet working long hours over the past one week. His pain is worse in the right ankle and states he is limping. He denies any specific new injury. No fever. Patient also had mentioned that he had some left upper quadrant abdominal pain which she attributes to muscle injury states he was lifting some heavy objects at work and believes he may have strained his abdominal muscles. No vomiting. No fever. He states this pain is currently not present. - Related Data Home Medications Medication Instructions Recorded Confirmed Naproxen [Naprosyn] 500 mg PO BID PRN 08/27/22 08/27/22 Previous Rx's Medication Instructions Recorded methocarbamoL [Robaxin] 500 mg PO BID PRN 8 Days #4 tab 05/30/22 Allergies Allergy/AdvReac Type Severity Reaction Status Date / Time No Known Allergies Allergy Verified 08/27/22 13:17 Review of Systems ROS Statement: Those systems with pertinent positive or pertinent negative responses have been documented in the HPI. ROS Other: All systems not noted in ROS Statement are negative. Past Medical History Past Medical History: Hypertension Additional Past Medical History / Comment(s): Nephrolithiasis, ETOH abuse with past withdrawal tremors, past alcoholic hepatitis/acute severe kidney injury/hyperphosphatemia/acute metabolic encephalopathy from renal failure. History of Any Multi-Drug Resistant Organisms: None Reported Past Surgical History: Tonsillectomy Past Anesthesia/Blood Transfusion Reactions: No Reported Reaction Past Psychological History: No Psychological Hx Reported Smoking Status: Current every day smoker Past Alcohol Use History: Abuse, Daily, Heavy Past Drug Use History: Marijuana - Past Family History Father Family Medical History: Myocardial Infarction ([place]) Additional Family Medical History / Comment(s): at age 4949 years old [place] Mother Family Medical History: Hypertension General Exam Limitations: no limitations General appearance: alert, in no apparent distress Head exam: Present: atraumatic, normocephalic Eye exam: Present: normal appearance, PERRL ENT exam: Present: normal exam Neck exam: Present: normal inspection. Absent: tenderness, meningismus Respiratory exam: Present: normal lung sounds bilaterally. Absent: respiratory distress, wheezes Cardiovascular Exam: Present: regular rate, normal rhythm GI/Abdominal exam: Present: soft. Absent: distended, tenderness, guarding, rebound Extremities exam: Present: full ROM, tenderness (Right ankle) Neurological exam: Present: alert, oriented X3, CN II-XII intact. Absent: motor sensory deficit Psychiatric exam: Present: normal mood, flat affect Skin exam: Present: warm, dry, intact Course Vital Signs 08/27/22 12:27 Temperature 98.3 F Pulse Rate 98 Respiratory 20 Rate Blood Pressure 129/81 O2 Sat by Pulse 99 Oximetry Medical Decision Making - Medical Decision Making Was pt. sent in by a medical professional or institution ([facility]rey, [employer], urgent care, hospital, or longterm...) When possible be specific @ -No Did you speak to anyone other than the patient for history (EMS, parent, family, police, friend...)? What history was obtained from this source @ -No Did you review nursing and triage notes (agree or disagree)? Why? @ -I reviewed and agree with nursing and triage notes Were old charts reviewed (outside hosp., previous admission, EMS record, old EKG, old radiological studies, urgent care reports/EKG's, longterm records)? Report findings @ -No old charts were reviewed Differential Diagnosis (chest pain, altered mental status, abdominal pain women, abdominal pain men, vaginal bleeding, weakness, fever, dyspnea, syncope, headache, dizziness, GI bleed, back pain, seizure, CVA, palpatations, mental health, musculoskeletal)? @ -Differential Musculoskeletal Muscular strain, contusion, ligament sprain, fracture, arthritis, septic arthritis, bursitis, cellulitis, muscle spasm, nerve compression, DVT, arterial occlusion, herpes zoster, electrolyte abnormality, tumor.... This is not meant to be in all inclusive list EKG interpreted by me (3pts min.). @ -As above X-rays interpreted by me (1pt min.). @ -X-rays interpreted by myself, no acute fracture dislocation, soft tissue swelling on the lateral aspect of the ankle agree with radiologist interpretation. CT interpreted by me (1pt min.). @ -None done U/S interpreted by me (1pt. min.). @ -None done What testing was considered but not performed or refused? (CT, X-rays, U/S, labs)? Why? @ -None What meds were considered but not given or refused? Why? @ -None Did you discuss the management of the patient with other professionals (professionals i.e. , PA, [employer], lab, RT, psych nurse, sexual assault social worker, miller apprentice, teacher, transit police officer, clinical case manager)? Give summary @ -No Was smoking cessation discussed for >3mins.? @ -No Was critical care preformed (if so, how long)? @ -No Were there social determinants of health that impacted care today? How? (Homelessness, low income, unemployed, alcoholism, drug addiction, transportation, low edu. Level, literacy, decrease access to med. care, residential, rehab)? @ -No Was there de-escalation of care discussed even if they declined (Discuss DNR or withdrawal of care, Hospice)? DNR status @ -No What co-morbidities impacted this encounter? (DM, HTN, Smoking, COPD, CAD, Cancer, CVA, ARF, Chemo, Hep., AIDS, mental health diagnosis, sleep apnea, morbid obesity)? @ -None Was patient admitted / discharged? Hospital course, mention meds given and route, prescriptions, significant lab abnormalities, going to OR and other pertinent info. @ -31-year-old male with right ankle pain, remote injury and overuse in the past one week. There is mild soft tissue swelling on exam. No warmth, no erythema, x-ray negative for fracture dislocation. Patient's given return parameters including fever or worsening swelling or pain. He will elevate the extremity, Shubham wrap is applied in the emergency department and he will take Motrin for pain and inflammation. Undiagnosed new problem with uncertain prognosis? @ -No Drug Therapy requiring intensive monitoring for toxicity (Heparin, Nitro, Insulin, Cardizem)? @ -No Were any procedures done? @ -No Diagnosis/symptom? @ -Ankle pain Acute, or Chronic, or Acute on Chronic? @ -Acute on chronic Uncomplicated (without systemic symptoms) or Complicated (systemic symptoms)? @ -Uncomplicated Side effects of treatment? @ -No Exacerbation, Progression, or Severe Exacerbation? @ -No Poses a threat to life or bodily function? How? (Chest pain, [place], [place], pneumonia, PE, COPD, DKA, ARF, appy, cholecystitis, CVA, Diverticulitis, Homicidal, Suicidal, threat to staff... and all critical care pts) @ -No Disposition Clinical Impression: Ankle pain Disposition: HOME SELF-CARE Condition: Fair Instructions (If sedation given, give patient instructions): Ankle Sprain (ED) Is patient prescribed a controlled substance at d/c from ED?: No Referrals: Donovan Delgado MD [Primary Care Provider] - 1-2 days Time of Disposition: 13:48
--- NOTE | 2022-08-27 13:32 | XR ---
EXAMINATION TYPE: XR ankle complete RT DATE OF EXAM: 08/27/2022 COMPARISON: Right ankle radiograph 03/29/2022. HISTORY: Pain TECHNIQUE: Frontal, lateral and oblique images of the right ankle are obtained. FINDINGS: There is no acute fracture/dislocation evident. The joint spaces appear within normal duenas its. Soft tissue swelling around the ankle. IMPRESSION: 1. There is no acute fracture or dislocation seen. 2. Soft tissue swelling around the ankle.
[2022-08-27 14:12] VITALS: BP 137/94; PULSE 86; RESP 18
== END 2022-08-27 14:17 | disposition home or self-care (01) ==
LOC: EC 12:19
DX: M25.571 Pain in right ankle and joints of right foot (principal); I10 Essential (primary) hypertension; F17.200 Nicotine dependence, unspecified, uncomplicated; F12.90 Cannabis use, unspecified, uncomplicated; Z90.89 Acquired absence of other organs; X50.0XXA Overexertion from strenuous movement or load, initial encounter; Y99.0 Civilian activity done for income or pay
CPT/HCPCS: 99283

== ENCOUNTER 2022-09-08 14:23 | Emergency (ER) | payer OTHER ==
--- NOTE | 2022-09-08 16:07 | ED ---
Abdominal Pain HPI - General Chief Complaint: Abdominal Pain Stated Complaint: Abd pain Time Seen by Provider: 09/08/22 15:40 Source: patient Mode of arrival: ambulatory Limitations: no limitations - History of Present Illness Initial Comments: This patient is a 32-year-old man who presents to have evaluation of left-sided rib pain. He notes that it has been present 1-2 weeks now. He states he may have lifted something at work but he is not aware of any definite injury to the chest wall. The patient's has not had fever or chills, cough, shortness of breath. No hemoptysis. No abdominal pain, nausea, vomiting, change in urination or bowel movements MD Complaint: other (Chest wall pain) -: week(s) Radiation: none Migration to: no migration Severity: moderate Quality: aching Consistency: constant Improves With: nothing Worsens With: movement, other (Palpation) Associated Symptoms: denies other symptoms - Related Data Home Medications Medication Instructions Recorded Confirmed Ibuprofen [Motrin] 600 mg PO TID PRN 09/08/22 09/08/22 cloNIDine HCL [Catapres] 0.1 mg PO BID 09/08/22 09/08/22 Previous Rx's Medication Instructions Recorded methocarbamoL [Robaxin] 500 mg PO BID PRN 8 Days #4 tab 05/30/22 Allergies Allergy/AdvReac Type Severity Reaction Status Date / Time No Known Allergies Allergy Verified 09/08/22 17:41 Review of Systems ROS Statement: Those systems with pertinent positive or pertinent negative responses have been documented in the HPI. ROS Other: All systems not noted in ROS Statement are negative. Constitutional: Denies: fever, chills Respiratory: Denies: cough, dyspnea Cardiovascular: Reports: chest pain (Left rib pain). Denies: syncope Gastrointestinal: Denies: abdominal pain, vomiting, diarrhea, constipation Genitourinary: Denies: dysuria, hematuria, testicular pain Musculoskeletal: Denies: back pain Skin: Denies: rash Past Medical History Past Medical History: Hypertension Additional Past Medical History / Comment(s): Nephrolithiasis, ETOH abuse with past withdrawal tremors, past alcoholic hepatitis/acute severe kidney injury/hyperphosphatemia/acute metabolic encephalopathy from renal failure. History of Any Multi-Drug Resistant Organisms: None Reported Past Surgical History: Tonsillectomy Past Anesthesia/Blood Transfusion Reactions: No Reported Reaction Past Psychological History: No Psychological Hx Reported Smoking Status: Current every day smoker Past Alcohol Use History: Abuse, Daily, Heavy Past Drug Use History: Marijuana - Past Family History Father Family Medical History: Myocardial Infarction (CT) Additional Family Medical History / Comment(s): at age 4949 [address] Mother Family Medical History: Hypertension General Exam Limitations: no limitations General appearance: alert, in no apparent distress Head exam: Present: atraumatic, normocephalic Respiratory exam: Present: normal lung sounds bilaterally, chest wall tenderness. Absent: respiratory distress, wheezes, rales, rhonchi, stridor, accessory muscle use Cardiovascular Exam: Present: regular rate, normal rhythm, normal heart sounds. Absent: systolic murmur, diastolic murmur, rubs, gallop GI/Abdominal exam: Present: soft. Absent: distended, tenderness, guarding, rebound, rigid, mass Back exam: Present: normal inspection. Absent: CVA tenderness (R), CVA tenderness (L), vertebral tenderness Skin exam: Present: warm, dry, intact, normal color. Absent: rash Course Vital Signs 09/08/22 09/08/22 14:28 19:42 Temperature 97.9 F 97.8 F Pulse Rate 93 76 Respiratory 20 18 Rate Blood Pressure 142/90 152/99 O2 Sat by Pulse 100 98 Oximetry Medical Decision Making - Medical Decision Making This patient is 32-year-old man with chest wall tenderness on the left side. He did have rib and chest x-rays which do reveal rib fracture as interpreted by myself. Discussed the appropriate further care and follow-up as well as return parameters. Was pt. sent in by a medical professional or institution (, PA, SPECIAL INVESTIGATION UNIT INVESTIGATOR, urgent care, hospital, or jail...) When possible be specific @ -[No] Did you speak to anyone other than the patient for history (EMS, parent, family, police, friend...)? What history was obtained from this source @ -[No] Did you review nursing and triage notes (agree or disagree)? Why? @ -[I reviewed and agree with nursing and triage notes] Were old charts reviewed (outside hosp., previous admission, EMS record, old EKG, old radiological studies, urgent care reports/EKG's, jail records)? Report findings @ -[No old charts were reviewed] Differential Diagnosis (chest pain, altered mental status, abdominal pain women, abdominal pain men, vaginal bleeding, weakness, fever, dyspnea, syncope, headache, dizziness, GI bleed, back pain, seizure, CVA, palpatations, mental health, musculoskeletal)? @ -[Differential diagnosis for the left-sided chest wall pain include contusion, strain, rib fracture, amongst other conditions EKG interpreted by me (3pts min.). @ -[A X-rays interpreted by me (1pt min.). @ -[As above CT interpreted by me (1pt min.). @ -[None done] U/S interpreted by me (1pt. min.). @ -[None done] What testing was considered but not performed or refused? (CT, X-rays, U/S, labs)? Why? @ -[None] What meds were considered but not given or refused? Why? @ -[None] Did you discuss the management of the patient with other professionals (professionals i.e. , PA, SPECIAL INVESTIGATION UNIT INVESTIGATOR, lab, RT, psych nurse, social service coordinator, sales and marketing associate, teacher, diplomatic officer, employment evaluator/case manager)? Give summary @ -[No] Was smoking cessation discussed for >3mins.? @ -[No] Was critical care preformed (if so, how long)? @ -[No] Were there social determinants of health that impacted care today? How? (Homelessness, low income, unemployed, alcoholism, drug addiction, transportation, low edu. Level, literacy, decrease access to med. care, [facility], rehab)? @ -[No] Was there de-escalation of care discussed even if they declined (Discuss DNR or withdrawal of care, Hospice)? DNR status @ -[No] What co-morbidities impacted this encounter? (DM, HTN, Smoking, COPD, CAD, Cancer, CVA, ARF, Chemo, Hep., AIDS, mental health diagnosis, sleep apnea, morbid obesity)? @ -[None] Was patient admitted / discharged? Hospital course, mention meds given and rou te, prescriptions, significant lab abnormalities, going to OR and other pertinent info. @ -[Discharged Undiagnosed new problem with uncertain prognosis? @ -[No] Drug Therapy requiring intensive monitoring for toxicity (Heparin, Nitro, Insulin, Cardizem)? @ -[No] Were any procedures done? @ -[No] Diagnosis/symptom? @ -[Acute left-sided rib fracture, uncomplicated Acute, or Chronic, or Acute on Chronic? @ -[default] Uncomplicated (without systemic symptoms) or Complicated (systemic symptoms)? @ -[default] Side effects of treatment? @ -[No] Exacerbation, Progression, or Severe Exacerbation? @ -[No] Poses a threat to life or bodily function? How? (Chest pain, USA, CT, pneumonia, PE, COPD, DKA, ARF, appy, cholecystitis, CVA, Diverticulitis, Homicidal, Suicidal, threat to staff... and all critical care pts) @ -[No] Disposition Clinical Impression: Rib fractures Disposition: HOME SELF-CARE Condition: Good Instructions (If sedation given, give patient instructions): Rib Fracture (ED) Is patient prescribed a controlled substance at d/c from ED?: No Referrals: Donovan Delgado MD [Primary Care Provider] - 1-2 days
--- NOTE | 2022-09-08 16:40 | XR ---
EXAMINATION TYPE: XR ribs LT w pa chest xray DATE OF EXAM: 09/08/2022 COMPARISON: Chest x-ray 05/30/2022 HISTORY: Chest pain TECHNIQUE: 5 view FINDINGS: Heart is normal. Lungs are clear of infiltrate or heart failure. There is increased density over the anterior left second rib consistent with healing fracture. No pleural effusion. There is he aling fracture left posterior seventh rib. No definite acute fracture seen. IMPRESSION: Healing left sided rib fractures are unchanged compared to the old exam. Normal heart
[2022-09-08 19:43] VITALS: BP 152/99; PULSE 76; RESP 18; TEMP 97.8
== END 2022-09-08 19:42 | disposition home or self-care (01) ==
LOC: EC 14:23
DX: S22.32XA Fracture of one rib, left side, initial encounter for closed fracture (principal); I10 Essential (primary) hypertension; F17.200 Nicotine dependence, unspecified, uncomplicated; F12.90 Cannabis use, unspecified, uncomplicated; Z79.899 Other long term (current) drug therapy; X50.0XXA Overexertion from strenuous movement or load, initial encounter
CPT/HCPCS: 99284

== ENCOUNTER 2022-11-21 17:17 | Emergency (ER) | payer OTHER ==
[2022-11-21] MEDS ORDERED: ONDANSETRON 4 MG/2 ML VIAL IVP STA (19:25)
[2022-11-21] MEDS ORDERED: SODIUM CHLORIDE 0.9% 2,000 ML IV STA (19:25)
[2022-11-21] MEDS ORDERED: FAMOTIDINE 20 MG/2 ML VIAL IV STA (19:26)
[2022-11-21] MEDS ORDERED: LORazepam 2 MG/ML INJ IV STA (19:26)
[2022-11-21 20:10] LABS: Anisocytosis Slight; Basophils % (A) 1 %; Eosinophils # (A) 0.1 k/uL (0-0.7); Eosinophils % (A) 1 %; HCT 50.2 % (39.0-53.0); HGB 17.3 gm/dL (13.0-17.5); Lymphocytes # (A) 1.6 k/uL (1.0-4.8); Lymphocytes % (A) 20 %; MCH 34.3 pg (25.0-35.0); MCHC 34.5 g/dL (31.0-37.0); MCV 99.2 fL (80.0-100.0); Macrocytosis Slight; Mean Platelet Volume 7.5; Monocytes # (A) 0.4 k/uL (0-1.0); Monocytes % (A) 5 %; Neutrophils # (A) 5.8 k/uL (1.3-7.7); Neutrophils % (A) 72 %; Platelet Count 184 k/uL (150-450); RBC 5.06 m/uL (4.30-5.90); RDW 17.2 % (11.5-15.5)
[2022-11-21 20:21] LABS: ALT 260 U/L (4-49); AST 718 U/L (17-59); African American GFR (CKD) >90 (>60 ml/min/1.73 sqM); Albumin 4.5 g/dL (3.5-5.0); Alkaline Phosphatase 267 U/L (38-126); Anion Gap 15 mmol/L; Blood Urea Nitrogen 16 mg/dL (9-20); Calcium 8.7 mg/dL (8.4-10.2); Carbon Dioxide 25 mmol/L (22-30); Chloride 92 mmol/L (98-107); Glucose 116 mg/dL (74-99); Lipase 202 U/L (23-300); Magnesium 1.8 mg/dL (1.6-2.3); Non-African American GFR(CKD) >90 (>60 ml/min/1.73 sqM); Potassium 3.4 mmol/L (3.5-5.1); Sodium 132 mmol/L (137-145); Total Protein 7.8 g/dL (6.3-8.2)
--- NOTE | 2022-11-21 21:16 | ED ---
Nausea/Vomiting/Diarrhea HPI - General Chief complaint: Nausea/Vomiting/Diarrhea Stated complaint: VOMITING Time Seen by Provider: 11/21/22 19:14 Source: patient, RN notes reviewed Mode of arrival: ambulatory Limitations: no limitations - History of Present Illness Initial comments: 32-year-old male presents emergency Department chief complaint of nausea vomiting 4 days. Patient states that he cannot keep anything down states he feels very dehydrated. Patient does admit that he started drinking again. Patient states he has a history of alcohol abuse. Patient denies any localized abdominal pain no fevers or chills no chest pain or shortness of breath. No severe withdrawal symptoms. - Related Data Previous Rx's Medication Instructions Recorded Ondansetron Odt [Zofran Odt] 4 mg PO Q8HR PRN #10 tab 11/21/22 Allergies Allergy/AdvReac Type Severity Reaction Status Date / Time No Known Allergies Allergy Verified 11/21/22 21:50 Review of Systems ROS Statement: Those systems with pertinent positive or pertinent negative responses have been documented in the HPI. ROS Other: All systems not noted in ROS Statement are negative. Past Medical History Past Medical History: Hypertension Additional Past Medical History / Comment(s): Nephrolithiasis, ETOH abuse with past withdrawal tremors, past alcoholic hepatitis/acute severe kidney injury/hyperphosphatemia/acute metabolic encephalopathy from renal failure. History of Any Multi-Drug Resistant Organisms: None Reported Past Surgical History: Tonsillectomy Past Anesthesia/Blood Transfusion Reactions: No Reported Reaction Past Psychological History: No Psychological Hx Reported Smoking Status: Current every day smoker Past Alcohol Use History: Abuse, Daily, Heavy Past Drug Use History: Marijuana - Past Family History Father Family Medical History: Myocardial Infarction ([place]) Additional Family Medical History / Comment(s): at age 4949 years old [place] Mother Family Medical History: Hypertension General Exam Limitations: no limitations General appearance: alert, in no apparent distress Head exam: Present: atraumatic, normocephalic, normal inspection Eye exam: Present: normal appearance, PERRL, EOMI. Absent: scleral icterus, conjunctival injection, periorbital swelling ENT exam: Present: normal exam, normal oropharynx, mucous membranes moist Neck exam: Present: normal inspection. Absent: tenderness, meningismus, lymphadenopathy Respiratory exam: Present: normal lung sounds bilaterally. Absent: respiratory distress, wheezes, rales, rhonchi, stridor Cardiovascular Exam: Present: normal rhythm, tachycardia, normal heart sounds. Absent: systolic murmur, diastolic murmur, rubs, gallop, clicks GI/Abdominal exam: Present: soft, normal bowel sounds. Absent: distended, tenderness, guarding, rebound, rigid Course Vital Signs 11/21/22 17:41 Temperature 98.2 F Pulse Rate 105 H Respiratory 20 Rate Blood Pressure 161/129 O2 Sat by Pulse 99 Oximetry Medical Decision Making - Medical Decision Making Was pt. sent in by a medical professional or institution (, PA, ENVELOPE SEALING MACHINE OPERATOR, urgent care, hospital, or penitentiary...) When possible be specific @ -No Did you speak to anyone other than the patient for history (EMS, parent, family, police, friend...)? What history was obtained from this source @ -No Did you review nursing and triage notes (agree or disagree)? Why? @ -I reviewed and agree with nursing and triage notes Were old charts reviewed (outside hosp., previous admission, EMS record, old EKG, old radiological studies, urgent care reports/EKG's, penitentiary records)? Report findings @ -Reviewed prior laboratory studies Differential Diagnosis (chest pain, altered mental status, abdominal pain women, abdominal pain men, vaginal bleeding, weakness, fever, dyspnea, syncope, headache, dizziness, GI bleed, back pain, seizure, CVA, palpatations, mental health, musculoskeletal)? @ -Differential Abdominal Pain Men: Appendicitis, cholecystitis, diverticulosis, ischemic bowel, pancreatitis, hepatitis, UTI, gastroenteritis, AAA, incarcerated hernia, bowel obstruction, constipation, inflammatory bowel, hepatitis, peptic ulcer disease, splenic infarction, perforated viscus, testicular torsion, this is not meant to be an all-inclusive listable EKG interpreted by me (3pts min.). @ -None X-rays interpreted by me (1pt min.). @ -None done CT interpreted by me (1pt min.). @ -None done U/S interpreted by me (1pt. min.). @ -LIVER SHOWS NO ACUTE PROCESS, NO EVIDENCE OF GALLBLADDER DISEASE What testing was considered but not performed or refused? (CT, X-rays, U/S, labs)? Why? @ -None What meds were considered but not given or refused? Why? @ -None Did you discuss the management of the patient with other professionals (professionals i.e. , PA, ENVELOPE SEALING MACHINE OPERATOR, lab, RT, psych nurse, web content & social media manager, irrigationist designer, teacher, global safety officer, director of casework services)? Give summary @ -No Was smoking cessation discussed for >3mins.? @ -No Was critical care preformed (if so, how long)? @ -No Were there social determinants of health that impacted care today? How? (Homelessness, low income, unemployed, alcoholism, drug addiction, transportation, low edu. Level, literacy, decrease access to med. care, care home, rehab)? @ -No Was there de-escalation of care discussed even if they declined (Discuss DNR or withdrawal of care, Hospice)? DNR status @ -No What co-morbidities impacted this encounter? (DM, HTN, Smoking, COPD, CAD, Cancer, CVA, ARF, Chemo, Hep., AIDS, mental health diagnosis, sleep apnea, morbid obesity)? @ -Alcohol abuse Was patient admitted / discharged? Hospital course, mention meds given and route, prescriptions, significant lab abnormalities, going to OR and other pertinent info. @ -Discharge patient feels greatly improved with IV fluids, antiemetics. Patient was well hydrated, patient does have evidence of alcoholic hepatitis patient has no symptoms no withdrawal symptoms. Patient will be discharged advised to have recheck laboratory studies. Undiagnosed new problem with uncertain prognosis? @ -No Drug Therapy requiring intensive monitoring for toxicity (Heparin, Nitro, In sulin, Cardizem)? @ -No Were any procedures done? @ -No Diagnosis/symptom? @ -Nausea vomiting, alcohol hepatitis Acute, or Chronic, or Acute on Chronic? @ -Acute Uncomplicated (without systemic symptoms) or Complicated (systemic symptoms)? @ -Uncomplicated Side effects of treatment? @ -No Exacerbation, Progression, or Severe Exacerbation? @ -No Poses a threat to life or bodily function? How? (Chest pain, [place], [place], pneumonia, PE, COPD, DKA, ARF, appy, cholecystitis, CVA, Diverticulitis, Homicidal, Suicidal, threat to staff... and all critical care pts) @ -No - Lab Data Result diagrams: 11/21/22 19:52 11/21/22 19:54 Lab Results 11/21/22 11/21/22 Range/Units 19:52 19:54 WBC 8.0 (3.8-10.6) k/uL RBC 5.06 (4.30-5.90) m/uL Hgb 17.3 (13.0-17.5) gm/dL Hct 50.2 (39.0-53.0) % MCV 99.2 (80.0-100.0) fL MCH 34.3 (25.0-35.0) pg MCHC 34.5 (31.0-37.0) g/dL RDW 17.2 H (11.5-15.5) % Plt Count 184 (150-450) k/uL MPV 7.5 Neutrophils % 72 % Lymphocytes % 20 % Monocytes % 5 % Eosinophils % 1 % Basophils % 1 % Neutrophils # 5.8 (1.3-7.7) k/uL Lymphocytes # 1.6 (1.0-4.8) k/uL Monocytes # 0.4 (0-1.0) k/uL Eosinophils # 0.1 (0-0.7) k/uL Basophils # 0.0 (0-0.2) k/uL Anisocytosis Slight Macrocytosis Slight Sodium 132 L (137-145) mmol/L Potassium 3.4 L (3.5-5.1) mmol/L Chloride 92 L (98-107) mmol/L Carbon Dioxide 25 (22-30) mmol/L Anion Gap 15 mmol/L BUN 16 (9-20) mg/dL Creatinine 0.81 (0.66-1.25) mg/dL Est GFR (CKD-EPI)AfAm >90 (>60 ml/min/1.73 sqM) Est GFR (CKD-EPI)NonAf >90 (>60 ml/min/1.73 sqM) Glucose 116 H (74-99) mg/dL Calcium 8.7 (8.4-10.2) mg/dL Magnesium 1.8 (1.6-2.3) mg/dL Total Bilirubin 2.0 H (0.2-1.3) mg/dL AST 718 H (17-59) U/L ALT 260 H (4-49) U/L Alkaline Phosphatase 267 H (38-126) U/L Total Protein 7.8 (6.3-8.2) g/dL Albumin 4.5 (3.5-5.0) g/dL Lipase 202 (23-300) U/L Disposition Clinical Impression: Nausea & vomiting, Transaminitis, Dehydration, Alcoholic hepatitis Disposition: HOME SELF-CARE Condition: Stable Instructions (If sedation given, give patient instructions): Acute Nausea and Vomiting (ED) Additional Instructions: Please return to the Emergency Department if symptoms worsen or any other concerns. Prescriptions: Ondansetron Odt [Zofran Odt] 4 mg PO Q8HR PRN #10 tab PRN Reason: Nausea Is patient prescribed a controlled substance at d/c from ED?: No Referrals: Gabe Flynn DO [Primary Care Provider] - 1-2 days Time of Disposition: 22:00
--- NOTE | 2022-11-21 21:34 | US ---
EXAMINATION TYPE: US liver DATE OF EXAM: 11/21/2022 COMPARISON: CT 2021, US 2019 CLINICAL INDICATION: Male, 32 years old with history of pain; Abdomen pain and N/V x 4 days TECHNIQUE: Multiple sonographic images of the right upper quadrant are obtained. FINDINGS: EXAM MEASUREMENTS: Liver Length: 20.2 cm Gallbladder Wall: 0.2 cm CBD: 0.4 cm Right Kidney: 11.5 x 4.3 x 5.8 cm Pancreas: visualized portions wnl, limited by overlying midline bowel gas Liver: enlarged, attenuating, increased echogenicity, heterogeneous Gallbladder: wnl Evidence for sonographic Johnston's sign: no CBD: small visualized portion wnl, limited by overlying bowel gas Right Kidney: wnl IMPRESSION: 1. Limited exam. Liver appears enlarged with increased echotexture compatible with hepatic steatosis . 2. Gallbladder appears within normal limits. 3. No evidence of obstructive uropathy.
[2022-11-21] MEDS ORDERED: diphenhydrAMINE 50 MG/ML 1 ML VIAL IVP STA (21:39)
[2022-11-21] MEDS ORDERED: METOCLOPRAMIDE 5 MG/ML 2 ML VIAL IVP STA (21:39)
[2022-11-21 22:13] VITALS: BP 134/78; PULSE 78; RESP 16; TEMP 98.6
== END 2022-11-21 22:17 | disposition home or self-care (01) ==
LOC: EC 17:17
DX: R11.2 Nausea with vomiting, unspecified (principal); K70.10 Alcoholic hepatitis without ascites; R74.01 Elevation of levels of liver transaminase levels; E86.0 Dehydration; I10 Essential (primary) hypertension; F12.90 Cannabis use, unspecified, uncomplicated; F17.200 Nicotine dependence, unspecified, uncomplicated
CPT/HCPCS: 36415; 80053; 83690; 83735; 85025; 76705; 99284; 96374; 96375 ×4; 96361 ×2; J2060; J1200; J2765; J2405

== ENCOUNTER 2022-11-25 07:02 | Observation (INO) | payer OTHER ==
[2022-11-25] MEDS ORDERED: SODIUM CHLORIDE 0.9% 1,000 ML IV STA (07:15)
[2022-11-25] MEDS ORDERED: THIAMINE 100 MG/ML 2 ML VIAL IM STA ×2 (07:42→08:48)
[2022-11-25] MEDS ORDERED: LORazepam 2 MG/ML INJ IV PRN ×4 (07:42→08:48)
[2022-11-25] MEDS ORDERED: ONDANSETRON 4 MG/2 ML VIAL IVP STA (07:42)
--- NOTE | 2022-11-25 07:42 | ED ---
Alcohol HPI - General Chief Complaint: Alcohol Stated Complaint: Vomitting, Shaking Time Seen by Provider: 11/25/22 07:15 Source: patient, RN notes reviewed Mode of arrival: ambulatory Limitations: no limitations - History of Present Illness Initial Comments: Patient is a 32-year-old male presenting to the emergency room with concerns of alcohol withdrawal symptoms of severe nausea and vomiting despite utilizing Zofran as prescribed. He reports that he has had severe withdrawal symptoms before with severe nausea vomiting and seizure activity. He states that he last withdrawals from alcohol approximately 3 months ago and has been drinking approximately 1 pint of vodka a day up until about a day and a half ago. He reports desire to be, and stay sober. He denies any seizure activity with his current withdrawals to this point. He has generalized malaise and body aches without any tremors, visual or auditory hallucinations. He denies any chest pain or shortness of breath. In addition to his EtOH history he has a past medical history significant for hypertension, previous severe acute hepatic and renal failure. - Related Data Previous Rx's Medication Instructions Recorded Ondansetron Odt [Zofran Odt] 4 mg PO Q8HR PRN #10 tab 11/21/22 Allergies Allergy/AdvReac Type Severity Reaction Status Date / Time No Known Allergies Allergy Verified 11/25/22 09:42 Review of Systems ROS Statement: Those systems with pertinent positive or pertinent negative responses have been documented in the HPI. ROS Other: All systems not noted in ROS Statement are negative. Past Medical History Past Medical History: Hypertension Additional Past Medical History / Comment(s): Nephrolithiasis, ETOH abuse with past withdrawal tremors, past alcoholic hepatitis/acute severe kidney injury/hyperphosphatemia/acute metabolic encephalopathy from renal failure. History of Any Multi-Drug Resistant Organisms: None Reported Past Surgical History: Tonsillectomy Past Anesthesia/Blood Transfusion Reactions: No Reported Reaction Past Psychological History: No Psychological Hx Reported Smoking Status: Current every day smoker Past Alcohol Use History: Abuse, Daily, Heavy Past Drug Use History: Marijuana - Past Family History Father Family Medical History: Myocardial Infarction ([place]) Additional Family Medical History / Comment(s): at age 4949 years old [place] Mother Family Medical History: Hypertension General Exam Limitations: no limitations General appearance: alert, in no apparent distress, other (Mildly diaphoretic) Head exam: Present: atraumatic, normocephalic, normal inspection Eye exam: Present: normal appearance, PERRL, EOMI. Absent: scleral icterus, conjunctival injection, periorbital swelling ENT exam: Present: normal exam, mucous membranes moist Neck exam: Present: normal inspection. Absent: tenderness, meningismus, lymphadenopathy Respiratory exam: Present: normal lung sounds bilaterally. Absent: respiratory distress, wheezes, rales, rhonchi, stridor Cardiovascular Exam: Present: normal rhythm, tachycardia, normal heart sounds. Absent: systolic murmur, diastolic murmur, rubs, gallop, clicks GI/Abdominal exam: Present: soft, tenderness (generalized), normal bowel sounds. Absent: distended, guarding, rebound, rigid Extremities exam: Present: normal inspection, full ROM. Absent: tenderness, pedal edema, joint swelling Back exam: Present: normal inspection Neurological exam: Present: alert, oriented X3, CN II-XII intact Psychiatric exam: Present: normal affect, normal mood Skin exam: Present: warm, dry, intact, normal color. Absent: rash Course Vital Signs 11/25/22 11/25/22 11/25/22 07:04 07:30 08:09 Temperature 97.4 F L Pulse Rate 124 H 96 82 Respiratory 18 18 14 Rate Blood Pressure 208/133 159/144 177/129 O2 Sat by Pulse 97 96 95 Oximetry 11/25/22 09:44 Temperature Pulse Rate 85 Respiratory 16 Rate Blood Pressure 164/122 O2 Sat by Pulse 96 Oximetry Medical Decision Making - Medical Decision Making Was pt. sent in by a medical professional or institution (, PA, [employer], urgent care, hospital, or [place] health [facility] facility...) When possible be specific @ -No Did you speak to anyone other than the patient for history (EMS, parent, family, police, friend...)? What history was obtained from this source @ -No Did you review nursing and triage notes (agree or disagree)? Why? @ -I reviewed and agree with nursing and triage notes Were old charts reviewed (outside hosp., previous admission, EMS record, old EKG, old radiological studies, urgent care reports/EKG's, [place] health care facility records)? Report findings @ -Yes, reviewed laboratory studies from most recent emergency room visit of 11/21/2022. Differential Diagnosis (chest pain, altered mental status, abdominal pain women, abdominal pain men, vaginal bleeding, weakness, fever, dyspnea, syncope, headache, dizziness, GI bleed, back pain, seizure, CVA, palpatations, mental health, musculoskeletal)? @ -Not applicable EKG interpreted by me (3pts min.). @ -Sinus rhythm, ventricular rate 80 bpm, [place] interval 159 ms, QRS duration 90 ms, QT/QTC 385/420 ms, PRT axes 31, 3, 30 X-rays interpreted by me (1pt min.). @ -None done CT interpreted by me (1pt min.). @ -None done U/S interpreted by me (1pt. min.). @ -None done What testing was considered but not performed or refused? (CT, X-rays, U/S, labs)? Why? @ -None What meds were considered but not given or refused? Why? @ -None Did you discuss the management of the patient with other professionals (professionals i.e. , PA, [employer], lab, RT, psych nurse, psychiatric social worker, jewelry casting model maker, teacher, emergency response officer, leather case finisher)? Give summary @ -Yes, spoke with Racheal engineer station mainline for [facility] services regarding patient's presentation, laboratory studies and recommendation of admission for alcohol withdrawal management, she is accepting of admission and denies any further orders at this time. Was smoking cessation discussed for >3mins.? @ -No Was critical care preformed (if so, how long)? @ -No Were there social determinants of health that impacted care today? How? (Homeles sness, low income, unemployed, alcoholism, drug addiction, transportation, low edu. Level, literacy, decrease access to med. care, prison, rehab)? @ -No Was there de-escalation of care discussed even if they declined (Discuss DNR or withdrawal of care, Hospice)? DNR status @ -No What co-morbidities impacted this encounter? (DM, HTN, Smoking, COPD, CAD, Cancer, CVA, ARF, Chemo, Hep., AIDS, mental health diagnosis, sleep apnea, morbid obesity)? @ -EtOH history with hepatic failure Was patient admitted / discharged? Hospital course, mention meds given and route, prescriptions, significant lab abnormalities, going to OR and other pertinent info. @ -32-year-old male presenting to the emergency room with complaints of abdominal pain, nausea and vomiting intractable to oral Zofran due to alcohol withdrawals. His last drink was approximately a day and a half ago and he typically drinks approximately 1 pint or greater a day of vodka. He has gone through alcohol withdrawals in the past which have been severe enough to cause seizures. Will begin alcohol withdrawal workup with laboratory studies of CMP, amylase, lipase, magnesium, phosphorus, coag and CBC along with serum alcohol level and EKG. will give 1 L fluid bolus, Zofran for nausea vomiting and initiate CIWA with IV Ativan. Ciwa score 13. EKG shows sinus rhythm. CBC with elevated RDW 17.4 no other abnormalities. Coags elevated PT of 19.2, INR 1.9 electrolyte abnormalities noted with magnesium of 1.1, potassium 3.4 sodium 134 chloride 94 calcium phosphorus anion gap and carbon dioxide all normal. Renal function normal. Bilirubin elevated at 2.0 AST 257, ALP 159, alkaline phosphatase 323 these are all improved compared to laboratory studies on 11/21/2022. Amylase and lipase normal. Serum alcohol level less than 10. Will continue IV hydration, replete magnesium and potassium along with order thiamine. Abnormal laboratory studies discussed with patient. Symptoms improved with hydration, Zofran and Ativan. Advised recommend admission for alcohol withdrawals. Patient is agreeable to this plan. Spoke with Racheal oh for [facility], [place], regarding patient presentation, laboratory studies, workup and recommendation of admission for alcohol withdrawal. She is accepting of admission and denies any further orders at this time. Will admit patient to medical surgical unit under [facility] services for further evaluation and treatment of alcohol withdrawals. Undiagnosed new problem with uncertain prognosis? @ -No Drug Therapy requiring intensive monitoring for toxicity (Heparin, Nitro, Insulin, Cardizem)? @ -No Were any procedures done? @ -No Diagnosis/symptom? @ -Alcohol withdrawal Acute, or Chronic, or Acute on Chronic? @ -Acute Uncomplicated (without systemic symptoms) or Complicated (systemic symptoms)? @ -Complicated Side effects of treatment? @ -No Exacerbation, Progression, or Severe Exacerbation? @ -No Poses a threat to life or bodily function? How? (Chest pain, [place], [place], pneumonia, PE, COPD, DKA, ARF, appy, cholecystitis, CVA, Diverticulitis, Homicidal, Suicidal, threat to staff... and all critical care pts) @ -Yes, risk for continued electrolyte abnormalities and seizures. Case discussed with Dr. Dacosta. - Lab Data Result diagrams: 11/25/22 07:29 11/25/22 07:29 Lab Results 11/25/22 11/25/22 11/25/22 Range/Units 07:29 07:29 07:29 WBC 9.1 (3.8-10.6) k/uL RBC 5.08 (4.30-5.90) m/uL Hgb 17.3 (13.0-17.5) gm/dL Hct 50.5 (39.0-53.0) % MCV 99.4 (80.0-100.0) fL MCH 34.2 (25.0-35.0) pg MCHC 34.4 (31.0-37.0) g/dL RDW 17.4 H (11.5-15.5) % Plt Count 190 (150-450) k/uL MPV 8.2 Neutrophils % 64 % Lymphocytes % 28 % Monocytes % 5 % Eosinophils % 1 % Basophils % 0 % Neutrophils # 5.8 (1.3-7.7) k/uL Lymphocytes # 2.5 (1.0-4.8) k/uL Monocytes # 0.5 (0-1.0) k/uL Eosinophils # 0.1 (0-0.7) k/uL Basophils # 0.0 (0-0.2) k/uL Anisocytosis Slight Macrocytosis Slight PT 19.2 H (9.0-12.0) sec INR 1.9 H (<1.2) Sodium 134 L (137-145) mmol/L Potassium 3.4 L (3.5-5.1) mmol/L Chloride 94 L (98-107) mmol/L Carbon Dioxide 28 (22-30) mmol/L Anion Gap 12 mmol/L BUN 13 (9-20) mg/dL Creatinine 0.83 (0.66-1.25) mg/dL Est GFR (CKD-EPI)AfAm >90 (>60 ml/min/1.73 sqM) Est GFR (CKD-EPI)NonAf >90 (>60 ml/min/1.73 sqM) Glucose 120 H (74-99) mg/dL Calcium 8.5 (8.4-10.2) mg/dL Phosphorus 3.8 (2.5-4.5) mg/dL Magnesium 1.1 L (1.6-2.3) mg/dL Total Bilirubin 3.0 H (0.2-1.3) mg/dL AST 257 H (17-59) U/L ALT 159 H (4-49) U/L Alkaline Phosphatase 323 H (38-126) U/L Total Protein 8.2 (6.3-8.2) g/dL Albumin 4.5 (3.5-5.0) g/dL Amylase 96 (30-110) U/L Lipase 286 (23-300) U/L Serum Alcohol <10 mg/dL Disposition Clinical Impression: Alcohol withdrawal Disposition: ADMITTED IP TO THIS HOSP Condition: Stable Is patient prescribed a controlled substance at d/c from ED?: No Referrals: Gabe Flynn DO [Primary Care Provider] - 1-2 days Time of Disposition: 09:21
[2022-11-25 07:50] LABS: ALT 159 U/L (4-49); AST 257 U/L (17-59); African American GFR (CKD) >90 (>60 ml/min/1.73 sqM); Albumin 4.5 g/dL (3.5-5.0); Alcohol <10 mg/dL; Alkaline Phosphatase 323 U/L (38-126); Amylase 96 U/L (30-110); Anion Gap 12 mmol/L; Blood Urea Nitrogen 13 mg/dL (9-20); Calcium 8.5 mg/dL (8.4-10.2); Carbon Dioxide 28 mmol/L (22-30); Chloride 94 mmol/L (98-107); Glucose 120 mg/dL (74-99); Lipase 286 U/L (23-300); Magnesium 1.1 mg/dL (1.6-2.3); Non-African American GFR(CKD) >90 (>60 ml/min/1.73 sqM); Phosphorus 3.8 mg/dL (2.5-4.5); Potassium 3.4 mmol/L (3.5-5.1); Sodium 134 mmol/L (137-145); Total Protein 8.2 g/dL (6.3-8.2)
[2022-11-25 07:57] LABS: Anisocytosis Slight; Basophils % (A) 0 %; Eosinophils # (A) 0.1 k/uL (0-0.7); Eosinophils % (A) 1 %; HCT 50.5 % (39.0-53.0); HGB 17.3 gm/dL (13.0-17.5); Lymphocytes # (A) 2.5 k/uL (1.0-4.8); Lymphocytes % (A) 28 %; MCH 34.2 pg (25.0-35.0); MCHC 34.4 g/dL (31.0-37.0); MCV 99.4 fL (80.0-100.0); Macrocytosis Slight; Mean Platelet Volume 8.2; Monocytes # (A) 0.5 k/uL (0-1.0); Monocytes % (A) 5 %; Neutrophils # (A) 5.8 k/uL (1.3-7.7); Neutrophils % (A) 64 %; Platelet Count 190 k/uL (150-450); RBC 5.08 m/uL (4.30-5.90); RDW 17.4 % (11.5-15.5); WBC 9.1 k/uL (3.8-10.6)
[2022-11-25 08:06] LABS: INR 1.9 (<1.2); Prothrombin Time 19.2 sec (9.0-12.0)
[2022-11-25] MEDS ORDERED: POTASSIUM CHLORIDE 20 MEQ in WATER FOR INJECTION 1 100ML.BAG IVPB STA (08:41)
[2022-11-25] MEDS: MAGNESIUM SULFATE-D5W PMX 1 GM in DEXTROSE/WATER 1 100ML.BAG IVPB SCH ×5 (09:05→17:50)
[2022-11-25] MEDS ORDERED: NALOXONE 0.4 MG/ML 1 ML VIAL IV PRN (09:19)
[2022-11-25] MEDS: SODIUM CHLORIDE 0.9% 1,000 ML IV SCH ×2 (09:22→17:50)
[2022-11-25] MEDS: PANTOPRAZOLE 40 MG/10 ML VIAL IVP SCH ×2 (09:43→22:39)
[2022-11-25 10:37] LABS: Amphetamine Screen,Urine Not Detected (NotDetected); Barbiturate Screen,Urine Not Detected (NotDetected); Benzodiazepines Screen,Urine Not Detected (NotDetected); Cocaine Screen,Urine Detected (NotDetected); Methadone Screen, Urine Not Detected (NotDetected); Opiate Screen,Urine Not Detected (NotDetected); Oxycodone Screen, Urine Not Detected (NotDetected); Phencyclidine Screen,Urine Not Detected (NotDetected); Tricyclic Antidepressant,Urine Not Detected (NotDetected); Urn Cannabinoid Scrn Detected (NotDetected)
[2022-11-25] MEDS ORDERED: POTASSIUM CHLORIDE ER 20 MEQ TAB.ER PO STA (13:46)
--- NOTE | 2022-11-25 13:46 | P.HPIM ---
History of Present Illness Patient is being admitted for alcohol withdrawal patient is hyponatremic, last alcohol drink was 2 days ago. Willing to quit alcohol urine drug screen is positive for cocaine and marijuana as well. Patient quit the alcohol in the p ast patient is a hyponatremic hypokalemic hypomagnesemic along with elevated liver enzymes. Was complaining of epigastric abdominal pain and burning sensation that patient had withdrawal symptoms today which improved with Ativan REVIEW OF SYSTEMS: CONSTITUTIONAL: No fever, no malaise, no fatigue. HEENT: No recent visual problems or hearing problems. Denied any sore throat. CARDIOVASCULAR: No chest pain, orthopnea, PND, no palpitations, no syncope. PULMONARY: No shortness of breath, no cough, no hemoptysis. GASTROINTESTINAL: No diarrhea, no nausea, no vomiting, no abdominal pain. NEUROLOGICAL: No headaches, no weakness, no numbness. HEMATOLOGICAL: Denies any bleeding or petechiae. GENITOURINARY: Denies any burning micturition, frequency, or urgency. MUSCULOSKELETAL/RHEUMATOLOGICAL: Denies any joint pain, swelling, or any muscle pain. ENDOCRINE: Denies any polyuria or polydipsia. The rest of the 14-point review of systems is negative. PHYSICAL EXAMINATION: GENERAL: The patient is alert and oriented x3, not in any acute distress. Well developed, well nourished. HEENT: Pupils are round and equally reacting to light. EOMI. No scleral icterus. No conjunctival pallor. Normocephalic, atraumatic. No pharyngeal erythema. No thyromegaly. CARDIOVASCULAR: S1 and S2 present. No murmurs, rubs, or gallops. PULMONARY: Chest is clear to auscultation, no wheezing or crackles. ABDOMEN: Soft, nontender, nondistended, normoactive bowel sounds. No palpable organomegaly. MUSCULOSKELETAL: No joint swelling or deformity. EXTREMITIES: No cyanosis, clubbing, or pedal edema. NEUROLOGICAL: Gross neurological examination did not reveal any focal deficits. SKIN: No rashes. Assessment and plan 1 alcohol withdrawal: Patient will be on withdrawal protocol and IV Ativan as ne eded for alcohol withdrawals thiamine multivitamin recommendation IV fluids -Hypovolemic hyponatremia side alcoholism patient will be started on normal saline at 10-hypokalemia secondary to alcoholism potassium will be replaced -Hypomagnesemia secondary to chronic alcoholism and is able to place -Acute alcoholic hepatitis -Alcoholic gastritis: Protonix -Alcohol dependence: Social work consultation DVT prophylaxis: Lovenox Past Medical History Past Medical History: Hypertension Additional Past Medical History / Comment(s): Nephrolithiasis, ETOH abuse with past withdrawal tremors, past alcoholic hepatitis/acute severe kidney inj ury/hyperphosphatemia/acute metabolic encephalopathy from renal failure. History of Any Multi-Drug Resistant Organisms: None Reported Past Surgical History: Tonsillectomy Past Anesthesia/Blood Transfusion Reactions: No Reported Reaction Past Psychological History: No Psychological Hx Reported Smoking Status: Current every day smoker Past Alcohol Use History: Abuse, Daily, Heavy Past Drug Use History: Marijuana - Past Family History Father Family Medical History: Myocardial Infarction ([place]) Additional Family Medical History / Comment(s): at age 4949 years old [place] Mother Family Medical History: Hypertension Medications and Allergies Home Medications Medication Instructions Recorded Confirmed Type Ondansetron Odt [Zofran Odt] 4 mg PO Q8HR PRN #10 tab 11/21/22 11/25/22 Rx Allergies Allergy/AdvReac Type Severity Reaction Status Date / Time No Known Allergies Allergy Verified 11/25/22 09:42 Physical Exam Vitals: Vital Signs Temp Pulse Resp BP Pulse Ox 11/25/22 13:24 83 16 190/130 97 11/25/22 12:00 76 18 172/127 97 11/25/22 09:44 85 16 164/122 96 11/25/22 08:09 82 14 177/129 95 11/25/22 07:30 96 18 159/144 96 11/25/22 07:04 97.4 F L 124 H 18 208/133 97 Intake and Output 11/24/22 11/25/22 11/25/22 22:59 06:59 14:59 Other: Weight 86.636 kg Results CBC & Chem 7: 11/25/22 07:29 11/25/22 07:29 Labs: Abnormal Lab Results - Last 24 Hours (Table) 11/25/22 11/25/22 11/25/22 Range/Units 07:29 07:29 07:29 RDW 17.4 H (11.5-15.5) % PT 19.2 H (9.0-12.0) sec INR 1.9 H (<1.2) Sodium 134 L (137-145) mmol/L Potassium 3.4 L (3.5-5.1) mmol/L Chloride 94 L (98-107) mmol/L Glucose 120 H (74-99) mg/dL Magnesium 1.1 L (1.6-2.3) mg/dL Total Bilirubin 3.0 H (0.2-1.3) mg/dL AST 257 H (17-59) U/L ALT 159 H (4-49) U/L Alkaline Phosphatase 323 H (38-126) U/L Urine Cocaine Screen (NotDetected) U Marijuana (THC) Screen (NotDetected) 11/25/22 Range/Units 09:43 RDW (11.5-15.5) % PT (9.0-12.0) sec INR (<1.2) Sodium (137-145) mmol/L Potassium (3.5-5.1) mmol/L Chloride (98-107) mmol/L Glucose (74-99) mg/dL Magnesium (1.6-2.3) mg/dL Total Bilirubin (0.2-1.3) mg/dL AST (17-59) U/L ALT (4-49) U/L Alkaline Phosphatase (38-126) U/L Urine Cocaine Screen Detected H (NotDetected) U Marijuana (THC) Screen Detected H (NotDetected)
[2022-11-25] MEDS: NICOTINE 21MG/24HR PATCH TRANSDERM SCH (15:28)
[2022-11-25] MEDS: ONDANSETRON 4 MG/2 ML VIAL IVP PRN ×2 (15:29→22:39)
[2022-11-25] MEDS: 0.9% NACL WITH KCL 20 MEQ/L 1,000 ML IV SCH (19:25)
[2022-11-26] MEDS: SODIUM CHLORIDE 0.9% 1,000 ML IV SCH ×2 (01:17→09:24)
[2022-11-26] MEDS: hydrALAZINE HCL 20 MG/ML 1 ML VIAL IVP PRN ×2 (03:47→12:00)
[2022-11-26 06:38] LABS: ALT 109 U/L (4-49); AST 263 U/L (17-59); African American GFR (CKD) >90 (>60 ml/min/1.73 sqM); Albumin 3.9 g/dL (3.5-5.0); Albumin/Globulin Ratio 1.2; Alkaline Phosphatase 285 U/L (38-126); Anion Gap 12 mmol/L; Blood Urea Nitrogen <2 mg/dL (9-20); Calcium 8.2 mg/dL (8.4-10.2); Carbon Dioxide 22 mmol/L (22-30); Chloride 99 mmol/L (98-107); Globulin 3.2 g/dL; Glucose 182 mg/dL (74-99); Magnesium 2.1 mg/dL (1.6-2.3); Non-African American GFR(CKD) >90 (>60 ml/min/1.73 sqM); Potassium 3.3 mmol/L (3.5-5.1); Sodium 133 mmol/L (137-145); Total Bilirubin 3.9 mg/dL (0.2-1.3); Total Protein 7.1 g/dL (6.3-8.2)
[2022-11-26] MEDS: 0.9% NACL WITH KCL 20 MEQ/L 1,000 ML IV SCH (07:32)
[2022-11-26 07:50] VITALS: RESP 17
[2022-11-26] MEDS ORDERED: THIAMINE 100 MG TAB PO SCH ×2 (09:00)
[2022-11-26] MEDS ORDERED: ENOXAPARIN 40 MG/0.4 ML SYRINGE SQ SCH (09:00)
[2022-11-26] MEDS ORDERED: POTASSIUM CHLORIDE ER 20 MEQ TAB.ER PO STA (09:03)
[2022-11-26] MEDS: ONDANSETRON 4 MG/2 ML VIAL IVP PRN (09:26)
[2022-11-26] MEDS: PANTOPRAZOLE 40 MG/10 ML VIAL IVP SCH (09:26)
[2022-11-26] MEDS: NICOTINE 21MG/24HR PATCH TRANSDERM SCH (09:27)
[2022-11-26 12:00] VITALS: TEMP 98.3
[2022-11-26] MEDS ORDERED: carvediloL 6.25 MG TAB PO STA (13:35)
[2022-11-26] MEDS ORDERED: cloNIDine HCL 0.2 MG TAB PO STA (14:39)
[2022-11-26 16:02] VITALS: BP 154/94; PULSE 84
--- NOTE | 2022-11-27 08:07 | P.DS ---
Providers Date of admission: 11/25/22 10:19 Expected date of discharge: 11/26/22 Attending physician: Bora Carreno Primary care physician: Gabe Flynn [facility] Course: Final diagnosis -alcohol withdrawal -Hypovolemic hyponatremia secondary to alcoholism -hypertension, patient reports stopped taking blood pressure medications when he briefly discontinued alcohol use although started drinking again having some rebound hypertension -hypokalemia secondary to alcoholism -Hypomagnesemia secondary to chronic alcoholism -Acute alcoholic hepatitis -Alcoholic gastritis -Alcohol dependence -DVT prophylaxis -Coagulopathy secondary to liver disease most probably -Drug abuse holding cocaine and marijuana Discharge disposition Patient is being discharged in a stable condition with guarded prognosis to home. Patient will follow-up with Dr. Slime Lockett in the outpatient setting upon discharge. Patient is to continue with hemodialysis as scheduled. Total time taken is greater than 35 minutes. Hospital course This is a 32-year-old male who was admitted for alcohol withdrawal with electrolyte abnormalities found to be hyponatremic along with hypomagnesemia and low potassium. Electrolytes replaced per protocol maintained on IV hydration along with CIWA protocol and was not requiring much Ativan. Will start Librium taper for discharge. Patient having some rebound hypertension and patient reports he used to take blood pressure medications and then stopped drinking and blood pressure improved so he discontinued although now is having continuous elevated blood pressures. We'll initiate Coreg as well as recommend follow-up labs in the outpatient setting. Strongly suggested alcohol rehab and complete abstinence from alcohol and drug use. Drug screen was positive for cocaine and marijuana. Patient encouraged to follow-up with primary care provider this week. Currently no reports of chest pain, shortness of breath, or palpitations. Patient is afebrile. No reports of nausea or vomiting and patient is tolerating diet. Patient will be discharged home today. Guarded prognosis and high risk for readmission due to noncompliance, continued alcohol and drug abuse. Physical exam: GENERAL: The patient is alert and oriented x3, not in any acute distress. Well developed, well nourished. HEENT: Pupils are round and equally reacting to light. EOMI. No scleral icterus. No conjunctival pallor. Normocephalic, atraumatic. No pharyngeal erythema. No thyromegaly. CARDIOVASCULAR: S1 and S2 present. No murmurs, rubs, or gallops. PULMONARY: Chest is clear to auscultation, no wheezing or crackles. ABDOMEN: Soft, nontender, nondistended, normoactive bowel sounds. No palpable organomegaly. MUSCULOSKELETAL: No joint swelling or deformity. EXTREMITIES: No cyanosis, clubbing, or pedal edema. NEUROLOGICAL: Gross neurological examination did not reveal any focal deficits. SKIN: No rashes. Please refer to medication reconciliation sheet for a list of medications. The impression and plan of care has been dictated by Yuli Willingham, Nurse Practitioner as directed. Dr. Asim MD I have performed a history and examination and MDM of this patient, discussed the same with the dictator, and agree with the dictator's assessment and plan as written ,documented as a scribe. Based on total visit time, I have performed more than 50% of the visit. Patient Condition at Discharge: Stable Plan - Discharge Summary New Discharge Prescriptions: New carvediloL [Coreg] 3.125 mg PO BID 30 Days #60 tablet Thiamine [Vitamin B-1] 100 mg PO DAILY #30 tab Nicotine 21Mg/24Hr Patch [Habitrol] 1 patch TRANSDERM DAILY patch chlordiazePOXIDE HCl [Librium] 10 mg PO TID #6 cap Pantoprazole [Protonix] 40 mg PO BID 30 Days #45 tab Continue Ondansetron Odt [Zofran ODT] 4 mg PO Q8HR PRN #20 tab PRN Reason: Nausea Discharge Medication List Nicotine 21Mg/24Hr Patch [Habitrol] 1 patch TRANSDERM DAILY patch 11/26/22 [Rx] Ondansetron Odt [Zofran ODT] 4 mg PO Q8HR PRN #20 tab 11/26/22 [Rx] Pantoprazole [Protonix] 40 mg PO BID 30 Days #45 tab 11/26/22 [Rx] Thiamine [Vitamin B-1] 100 mg PO DAILY #30 tab 11/26/22 [Rx] carvediloL [Coreg] 3.125 mg PO BID 30 Days #60 tablet 11/26/22 [Rx] chlordiazePOXIDE HCl [Librium] 10 mg PO TID #6 cap 11/26/22 [Rx] Follow up Appointment(s)/Referral(s): Gabe Flynn DO [Primary Care Provider] - 1-2 days Ambulatory/Diagnostic Orders: Basic Metabolic Panel [LAB.AMB] Time Frame: 3 Days, Location: None Selected Activity/Diet/Wound Care/Special Instructions: Activity Limited until follow-up Follow-up with primary care provider on discharge this week Follow-up with community mental health in the outpatient setting Strongly consider alcohol rehab Avoid all alcohol intake Discharge/Stand Alone Forms: AA Meetings [address] - [facility], AA Meetings [facility] [facility], Who Do I Call?, Community Resources, Outpatient Counseling, In Substance Abuse Facilities Discharge Disposition: HOME SELF-CARE
== END 2022-11-26 16:24 | disposition home or self-care (01) ==
LOC: EC 07:02 → INTOOBSV 10:19 → 5NMEDONC 10:19
PROVIDERS: ADMIT Hospitalist; ATTEND Hospitalist
DX: F10.239 Alcohol dependence with withdrawal, unspecified (principal); K29.20 Alcoholic gastritis without bleeding; K70.10 Alcoholic hepatitis without ascites; I10 Essential (primary) hypertension; E87.1 Hypo-osmolality and hyponatremia; E86.1 Hypovolemia; E83.42 Hypomagnesemia; E87.6 Hypokalemia; D68.4 Acquired coagulation factor deficiency; F12.10 Cannabis abuse, uncomplicated; F14.10 Cocaine abuse, uncomplicated; Z91.148 Patient's other noncompliance with medication regimen for other reason; Z87.442 Personal history of urinary calculi; F17.200 Nicotine dependence, unspecified, uncomplicated; Z82.49 Family history of ischemic heart disease and other diseases of the circulatory system
CPT/HCPCS: 96376 ×2; 96366 ×2; 96372 ×2; 96375 ×2; 82075; 96368; 96361; 96365; 99285; 36415; 93005; 80053 ×2; 82150; 83690; 83735 ×2; 84100; 85025; 85610; 80306; 80320; S4990 ×2; J2060; J0360; J3411; J3480; J2405 ×2; J1650; J3475; C9113 ×2

== ENCOUNTER 2023-01-12 12:46 | Emergency (ER) | payer OTHER ==
[2023-01-12] MEDS ORDERED: SODIUM CHLORIDE 0.9% 1,000 ML IV ONE (13:30)
[2023-01-12] MEDS ORDERED: SODIUM CHLORIDE 0.9% 500 ML 500 ML IV ONE (13:30)
--- NOTE | 2023-01-12 13:34 | ED ---
General Adult HPI - General Chief complaint: Alcohol Stated complaint: overdose Time Seen by Provider: 01/12/23 13:20 Source: patient, EMS, RN notes reviewed, old records reviewed Mode of arrival: EMS Limitations: no limitations - History of Present Illness Initial comments: This is a 32-year-old male who presents emergency department via EMS. According to EMS family called because he was unresponsive. According to family he did do some cocaine last night and he is a heavy drinker and they did find empty bottles around in this morning. Patient also had a bottle of sleeping pills with an antihistamine. Patient was missing for out of the bottle of 32 there is no indication that he took any last night other than the fact the bottle was in the room. Patient also has a history of high blood pressure and he does not always takes a blood pressure according to the mother. Patient is not giving any further history there is no one with the patient at this time. - Related Data Home Medications Medication Instructions Recorded Confirmed Nicotine 21Mg/24Hr Patch [Habitrol] 1 patch TRANSDERM DAILY PRN 01/12/23 01/12/23 Previous Rx's Medication Instructions Recorded Ondansetron Odt [Zofran ODT] 4 mg PO Q8HR PRN #20 tab 11/26/22 Pantoprazole [Protonix] 40 mg PO BID 30 Days #45 tab 11/26/22 Thiamine [Vitamin B-1] 100 mg PO DAILY #30 tab 11/26/22 carvediloL [Coreg] 3.125 mg PO BID 30 Days #60 tablet 11/26/22 Allergies Allergy/AdvReac Type Severity Reaction Status Date / Time No Known Allergies Allergy Verified 01/12/23 14:37 Review of Systems ROS Statement: Those systems with pertinent positive or pertinent negative responses have been documented in the HPI. ROS Other: All systems not noted in ROS Statement are negative. Past Medical History Past Medical History: Hypertension Additional Past Medical History / Comment(s): Nephrolithiasis, ETOH abuse with past withdrawal tremors, past alcoholic hepatitis/acute severe kidney injury/hyperphosphatemia/acute metabolic encephalopathy from renal failure. History of Any Multi-Drug Resistant Organisms: None Reported Past Surgical History: Tonsillectomy Past Anesthesia/Blood Transfusion Reactions: No Reported Reaction Past Psychological History: No Psychological Hx Reported Smoking Status: Current every day smoker Past Alcohol Use History: Abuse, Daily, Heavy Past Drug Use History: Marijuana - Past Family History Father Family Medical History: Myocardial Infarction ([place]) Mother Family Medical History: Hypertension Additional Family Medical History / Comment(s): heart stent General Exam - General Exam Comments Initial Comments: GENERAL: Patient is well-developed and well-nourished. Patient is nontoxic and well- hydrated and is in no acute distress. Patient appears highly intoxicated ENT: Neck is soft and supple. No significant lymphadenopathy is noted. Oropharynx is clear. Moist mucous membranes. Neck has full range of motion without eliciting any pain. EYES: The sclera were anicteric and conjunctiva were pink and moist. Extraocular movements were intact and pupils were equal round and reactive to light. Eyelids were unremarkable. PULMONARY: Unlabored respirations. Good breath sounds bilaterally. No audible rales rhonchi or wheezing was noted. CARDIOVASCULAR: There is a regular rate and rhythm without any murmurs gallops or rubs. ABDOMEN: Soft and nontender with normal bowel sounds. SKIN: Skin is clear with no lesions or rashes and otherwise unremarkable. NEUROLOGIC: Patient is alert and oriented 0. Patient would groan with sternal rub only on arrival MUSCULOSKELETAL: Patient is moving all 4 extremities. LYMPHATICS: No significant lymphadenopathy is noted PSYCHIATRIC: Unable to assess Limitations: no limitations Course Vital Signs 01/12/23 01/12/23 01/12/23 13:16 14:19 15:39 Pulse Rate 106 H 102 H 102 H Respiratory 17 15 15 Rate Blood Pressure 178/111 O2 Sat by Pulse 97 95 94 L Oximetry 01/12/23 01/12/23 16:01 17:35 Pulse Rate 100 100 Respiratory 15 15 Rate Blood Pressure 153/86 O2 Sat by Pulse 97 97 Oximetry Medical Decision Making - Medical Decision Making Was pt. sent in by a medical professional or institution (, PA, MEDICAL AUDITOR, urgent care, hospital, or fpc...) When possible be specific @ -No Did you speak to anyone other than the patient for history (EMS, parent, family, police, friend...)? What history was obtained from this source @ -Mother gave some of the history since patient was only moaning to sternal rubs Did you review nursing and triage notes (agree or disagree)? Why? @ -I reviewed and agree with nursing and triage notes Were old charts reviewed (outside hosp., previous admission, EMS record, old EKG, old radiological studies, urgent care reports/EKG's, fpc records)? Report findings @ -I reviewed prior lab work departure since patient Differential Diagnosis (chest pain, altered mental status, abdominal pain women, abdominal pain men, vaginal bleeding, weakness, fever, dyspnea, syncope, headache, dizziness, GI bleed, back pain, seizure, CVA, palpatations, mental health, musculoskeletal)? @ -Differential Altered Mental Status: Hypoglycemia, DKA, hypercapnia, ETOH, overdose, CO poisoning, trauma, myxedema coma, HTN encephalopathy, infection, encephalitis, psychosis, intercranial hemorrhage, hepatic encephalopathy, meningitis, CVA, this is not meant to be an all-inclusive list EKG interpreted by me (3pts min.). @ -As above X-rays interpreted by me (1pt min.). @ -Chest x-ray Showed no acute abnormality CT interpreted by me (1pt min.). @ -CT of the brain showed no acute abnormality U/S interpreted by me (1pt. min.). @ -None done What testing was considered but not performed or refused? (CT, X-rays, U/S, labs)? Why? @ -None What meds were considered but not given or refused? Why? @ -None Did you discuss the management of the patient with other professionals (professionals i.e. , PA, MEDICAL AUDITOR, lab, RT, psych nurse, aids social worker, microsoft systems engineer, teacher, engineering officer, briefcase sewer)? Give summary @ -No Was smoking cessation discussed for >3mins.? @ -No Was critical care preformed (if so, how long)? @ -No Were there social determinants of health that impacted care today? How? (Homelessness, low income, unemployed, alcoholism, drug addiction, tra nsportation, low edu. Level, literacy, decrease access to med. care, long-term, rehab)? @ -No Was there de-escalation of care discussed even if they declined (Discuss DNR or withdrawal of care, Hospice)? DNR status @ -No What co-morbidities impacted this encounter? (DM, HTN, Smoking, COPD, CAD, Cancer, CVA, ARF, Chemo, Hep., AIDS, mental health diagnosis, sleep apnea, morbid obesity)? @ -None Was patient admitted / discharged? Hospital course, mention meds given and route, prescriptions, significant lab abnormalities, going to OR and other pertinent info. @ -Patient initially was only groaning to sternal rub but he slowly became more arousable and eventually was alert and oriented 4. Patient was drinking and attempting to eat a little in the emergency department. Patient was able to ambulate to the bathroom. Patient was requesting to go home at this point in time. Patient stated he tried rehabilitation in the past and did not have any success and does not want to go back. Patient states she has Zofran at home case he gets nauseous. Patient would not commit to not drinking when he went home. Patient states he is a daily drinker. Patient has no complaints at this time. Patient ambulates without problem Undiagnosed new problem with uncertain prognosis? @ -No Drug Therapy requiring intensive monitoring for toxicity (Heparin, Nitro, Insulin, Cardizem)? @ -No Were any procedures done? @ -No Diagnosis/symptom? @ -Alcohol intoxication Acute, or Chronic, or Acute on Chronic? @ -Acute Uncomplicated (without systemic symptoms) or Complicated (systemic symptoms)? @ -Complicated Side effects of treatment? @ -No Exacerbation, Progression, or Severe Exacerbation? @ -No Poses a threat to life or bodily function? How? (Chest pain, [place], [place], pneumonia, PE, COPD, DKA, ARF, appy, cholecystitis, CVA, Diverticulitis, Homicidal, [place] icidal, threat to staff... and all critical care pts) @ -No Diagnosis/symptom? @ -Cocaine abuse Acute, or Chronic, or Acute on Chronic? @ -Acute Uncomplicated (without systemic symptoms) or Complicated (systemic symptoms)? @ -Complicated Side effects of treatment? @ -none Exacerbation, Progression, or Severe Exacerbation] @ -no Poses a threat to life or bodily function? @ -no - Lab Data Result diagrams: 01/12/23 13:42 01/12/23 13:42 Lab Results 01/12/23 01/12/23 01/12/23 Range/Units 13:42 13:42 13:42 WBC 6.5 (3.8-10.6) k/uL RBC 4.03 L (4.30-5.90) m/uL Hgb 14.7 (13.0-17.5) gm/dL Hct 43.3 (39.0-53.0) % MCV 107.5 H D (80.0-100.0) fL MCH 36.5 H (25.0-35.0) pg MCHC 33.9 (31.0-37.0) g/dL RDW 16.1 H (11.5-15.5) % Plt Count 303 (150-450) k/uL MPV 7.8 Neutrophils % 66 % Lymphocytes % 27 % Monocytes % 4 % Eosinophils % 1 % Basophils % 0 % Neutrophils # 4.3 (1.3-7.7) k/uL Lymphocytes # 1.8 (1.0-4.8) k/uL Monocytes # 0.3 (0-1.0) k/uL Eosinophils # 0.1 (0-0.7) k/uL Basophils # 0.0 (0-0.2) k/uL Manual Slide Review Performed Polychromasia Present Anisocytosis Slight Macrocytosis Marked A Sodium 144 (137-145) mmol/L Potassium 3.9 (3.5-5.1) mmol/L Chloride 111 H (98-107) mmol/L Carbon Dioxide 17 L (22-30) mmol/L Anion Gap 16 mmol/L BUN 9 (9-20) mg/dL Creatinine 0.64 L (0.66-1.25) mg/dL Est GFR (CKD-EPI)AfAm >90 (>60 ml/min/1.73 sqM) Est GFR (CKD-EPI)NonAf >90 (>60 ml/min/1.73 sqM) Glucose 188 H (74-99) mg/dL Calcium 9.3 (8.4-10.2) mg/dL Magnesium 2.3 (1.6-2.3) mg/dL Total Bilirubin 0.5 (0.2-1.3) mg/dL AST 82 H (17-59) U/L ALT 53 H (4-49) U/L Alkaline Phosphatase 144 H (38-126) U/L Total Protein 8.6 H (6.3-8.2) g/dL Albumin 4.9 (3.5-5.0) g/dL Salicylates <1.0 mg/dL Urine Opiates Screen Not Detected (NotDetected) Ur Oxycodone Screen Not Detected (NotDetected) Urine Methadone Screen Not Detected (NotDetected) Ur Propoxyphene Screen Not Detected (NotDetected) Acetaminophen <10.0 ug/mL Ur Barbiturates Screen Not Detected (NotDetected) U Tricyclic Antidepress Not Detected (NotDetected) Ur Phencyclidine Scrn Not Detected (NotDetected) Ur Amphetamines Screen Not Detected (NotDetected) U Methamphetamines Scrn Not Detected (NotDetected) U Benzodiazepines Scrn Not Detected (NotDetected) Urine Cocaine Screen Detected H (NotDetected) U Marijuana (THC) Screen Detected H (NotDetected) Serum Alcohol 126 mg/dL Disposition Clinical Impression: Alcoholic intoxication, Cocaine abuse Disposition: HOME SELF-CARE Condition: Good Instructions (If sedation given, give patient instructions): Alcohol Intoxication (ED), Cocaine Abuse (ED) Is patient prescribed a controlled substance at d/c from ED?: No Referrals: Gabe Flynn DO [Primary Care Provider] - 1-2 days Time of Disposition: 20:33
[2023-01-12 14:19] LABS: Anisocytosis Slight; Basophils % (A) 0 %; Eosinophils # (A) 0.1 k/uL (0-0.7); Eosinophils % (A) 1 %; HCT 43.3 % (39.0-53.0); Lymphocytes # (A) 1.8 k/uL (1.0-4.8); Lymphocytes % (A) 27 %; MCH 36.5 pg (25.0-35.0); MCHC 33.9 g/dL (31.0-37.0); Macrocytosis Marked; Mean Platelet Volume 7.8; Monocytes # (A) 0.3 k/uL (0-1.0); Monocytes % (A) 4 %; Neutrophils # (A) 4.3 k/uL (1.3-7.7); Neutrophils % (A) 66 %; Platelet Count 303 k/uL (150-450); RBC 4.03 m/uL (4.30-5.90); RDW 16.1 % (11.5-15.5); WBC 6.5 k/uL (3.8-10.6)
[2023-01-12 14:23] LABS: HGB 14.7 gm/dL (13.0-17.5); MCV 107.5 fL (80.0-100.0)
[2023-01-12 14:24] LABS: ALT 53 U/L (4-49); AST 82 U/L (17-59); Acetaminophen <10.0 ug/mL; African American GFR (CKD) >90 (>60 ml/min/1.73 sqM); Albumin 4.9 g/dL (3.5-5.0); Alkaline Phosphatase 144 U/L (38-126); Anion Gap 16 mmol/L; Blood Urea Nitrogen 9 mg/dL (9-20); Calcium 9.3 mg/dL (8.4-10.2); Carbon Dioxide 17 mmol/L (22-30); Chloride 111 mmol/L (98-107); Glucose 188 mg/dL (74-99); Magnesium 2.3 mg/dL (1.6-2.3); Non-African American GFR(CKD) >90 (>60 ml/min/1.73 sqM); Potassium 3.9 mmol/L (3.5-5.1); Salicylate <1.0 mg/dL; Sodium 144 mmol/L (137-145); Total Bilirubin 0.5 mg/dL (0.2-1.3); Total Protein 8.6 g/dL (6.3-8.2)
[2023-01-12 14:35] LABS: Alcohol 126 mg/dL
[2023-01-12 14:36] LABS: Amphetamine Screen,Urine Not Detected (NotDetected); Barbiturate Screen,Urine Not Detected (NotDetected); Benzodiazepines Screen,Urine Not Detected (NotDetected); Cocaine Screen,Urine Detected (NotDetected); Methadone Screen, Urine Not Detected (NotDetected); Opiate Screen,Urine Not Detected (NotDetected); Oxycodone Screen, Urine Not Detected (NotDetected); Phencyclidine Screen,Urine Not Detected (NotDetected); Tricyclic Antidepressant,Urine Not Detected (NotDetected); Urn Cannabinoid Scrn Detected (NotDetected)
--- NOTE | 2023-01-12 14:40 | CT ---
EXAMINATION TYPE: CT brain cecil wo con DATE OF EXAM: 01/12/2023 COMPARISON: None HISTORY: overdose CT DLP: 1440 mGycm, Automated exposure control for dose reduction was used. CONTRAST: Patient injected with 0 mL of Isovue 300. CT of the brain is performed utilizing 3 mm thick sections through the posterior fossa and 3 mm thick sections through the remaining calvarium. Study is performed within 24 hours of arrival to the hospital. No abnormal hyperdensity is present to suggest an acute intracranial hemorrhage. No mass lesion is evident. No acute infarcts are evident. Ventricles and sulci are appropriate for the patient age. Minimal mucosal thickening within the inferior left maxillary sinus. Small air-fluid level may be pre sent. Correlate for acute left maxillary sinusitis. IMPRESSIONS: 1. No acute intracranial process. Follow-up MRI can be performed as clinically indicated. 2. Clinical consideration for acute left maxillary sinusitis recommended. CT cervical spine. COMPARISON: None CT of the cervical spine is performed in the axial plane at 2 mm thick sections. Reconstructed image s in the coronal, and sagittal plane are reviewed on the computer. No acute fractures are evident. Vertebral body alignment is normal. Disc heights are preserved. Vertebral body heights are preserved. No spinal canal stenosis is evident. No neural foraminal stenosis is evident. IMPRESSIONS: 1. No acute osseous abnormality cervical spine
[2023-01-12 14:50] LABS: Polychromasia Present
[2023-01-12] MEDS ORDERED: ONDANSETRON ODT 4 MG TAB PO STA (20:09)
[2023-01-12 21:33] VITALS: BP 161/96; PULSE 98; RESP 16
== END 2023-01-12 21:33 | disposition home or self-care (01) ==
LOC: EC 12:46
DX: F10.129 Alcohol abuse with intoxication, unspecified (principal); F14.10 Cocaine abuse, uncomplicated; I10 Essential (primary) hypertension; F17.200 Nicotine dependence, unspecified, uncomplicated; F12.90 Cannabis use, unspecified, uncomplicated; Y90.6 Blood alcohol level of 120-199 mg/100 ml
CPT/HCPCS: 36415; 70450; 72125; 80053; 80143; 80179; 80306; 80320; 83735; 85025; 96360; 99285

== ENCOUNTER 2023-03-18 07:45 | Inpatient (IN) | payer OTHER ==
[2023-03-18] MEDS ORDERED: ONDANSETRON 4 MG/2 ML VIAL IVP STA (08:04)
[2023-03-18] MEDS ORDERED: SODIUM CHLORIDE 0.9% 1,000 ML IV STA (08:04)
[2023-03-18] MEDS ORDERED: LORazepam 2 MG/ML INJ IV STA ×2 (08:04→11:04)
[2023-03-18] MEDS ORDERED: PANTOPRAZOLE 40 MG/10 ML VIAL IVP STA (08:04)
[2023-03-18] MEDS ORDERED: cloNIDine HCL 0.1 MG TAB PO STA (08:05)
--- NOTE | 2023-03-18 08:31 | ED ---
General Adult HPI - General Chief complaint: Alcohol Stated complaint: Withdrawals Time Seen by Provider: 03/18/23 07:51 Source: patient, RN notes reviewed Mode of arrival: ambulatory Limitations: no limitations - History of Present Illness Initial comments: Patient 32-year-old male with significant past medical history for hypertension, alcohol abuse, presenting to the emergency room today with a chief complaint of withdrawal symptoms. Patient states that he drinks approximately a pint daily. He states last week was approximately 24 hours ago. States last night started having episodes of nausea and vomiting. States no signs of blood in the emesis. Does not that he's had increased shaking. States she's had withdrawals in the past. Patient states he does take carvedilol for blood pressure. Patient denies any other complaints or any other symptoms at this time. Patient denies any recent fever, chills, shortness of breath, chest pain, back pain, abdominal pain, headaches or visual changes, or any other complaints. - Related Data Home Medications Medication Instructions Recorded Confirmed Nicotine 21Mg/24Hr Patch [Habitrol] 1 patch TRANSDERM DAILY PRN 01/12/23 01/12/23 Previous Rx's Medication Instructions Recorded Ondansetron Odt [Zofran ODT] 4 mg PO Q8HR PRN #20 tab 11/26/22 Pantoprazole [Protonix] 40 mg PO BID 30 Days #45 tab 11/26/22 Thiamine [Vitamin B-1] 100 mg PO DAILY #30 tab 11/26/22 carvediloL [Coreg] 3.125 mg PO BID 30 Days #60 tablet 11/26/22 Allergies Allergy/AdvReac Type Severity Reaction Status Date / Time No Known Allergies Allergy Verified 03/18/23 07:49 Review of Systems ROS Statement: Those systems with pertinent positive or pertinent negative responses have been documented in the HPI. ROS Other: All systems not noted in ROS Statement are negative. Past Medical History Past Medical History: Hypertension Additional Past Medical History / Comment(s): Nephrolithiasis, ETOH abuse with past withdrawal tremors, past alcoholic hepatitis/acute severe kidney injury/hyperphosphatemia/acute metabolic encephalopathy from renal failure. History of Any Multi-Drug Resistant Organisms: None Reported Past Surgical History: Tonsillectomy Past Anesthesia/Blood Transfusion Reactions: No Reported Reaction Past Psychological History: No Psychological Hx Reported Smoking Status: Current every day smoker Past Alcohol Use History: Abuse, Daily, Heavy Past Drug Use History: Cocaine, Marijuana - Past Family History Father Family Medical History: Myocardial Infarction ([place]) Mother Family Medical History: Hypertension Additional Family Medical History / Comment(s): heart stent General Exam - General Exam Comments Initial Comments: General: The patient is awake and alert, in no distress, and does not appear acutely ill. Eye: Pupils are equal, round and reactive to light, extra-ocular movements are intact. No nystagmus. There is normal conjunctiva bilaterally. No signs of icterus. Ears, nose, mouth and throat: There are moist mucous membranes and no oral lesions. Neck: The neck is supple, there is no tenderness or JVD. Cardiovascular: There is a regular rate and rhythm. No murmur, rub or gallop is appreciated. Respiratory: Lungs are clear to auscultation, respirations are non-labored, breath sounds are equal. No wheezes, stridor, rales, or rhonchi. Gastrointestinal: Soft nontender. No rebound, guarding. Musculoskeletal: Normal ROM, no tenderness. Strength 5/5. Sensation intact. Pulses equal bilaterally 2+. Neurological: A&O x 3. CN II-XII intact, There are no obvious motor or sensory deficits. Coordination appears grossly intact. Speech is normal. Skin: Skin is warm and dry and no rashes or lesions are noted. Psychiatric: Cooperative, appropriate mood & affect, normal judgment. Limitations: no limitations Course Vital Signs 03/18/23 03/18/23 03/18/23 07:47 08:50 09:00 Temperature 98.2 F Pulse Rate 124 H 107 H 102 H Respiratory 22 18 18 Rate Blood Pressure 202/125 191/130 185/134 O2 Sat by Pulse 99 98 98 Oximetry 03/18/23 03/18/23 10:02 10:26 Temperature Pulse Rate 91 95 Respiratory 18 18 Rate Blood Pressure 183/127 169/117 O2 Sat by Pulse 98 97 Oximetry EKG Findings - EKG Comments: EKG Findings:: EKG performed: 820. Normal sinus tachycardia 100 bpm. [place] interval 128. QRS 90. QT/QTc 325/390. No acute ST changes. Medical Decision Making - Medical Decision Making History was obtained from patient/Nurse Initial assessment and chief complaint: Alcohol withdrawal Chronic conditions affecting care:, Alcohol abuse Social determinants affecting care: None Patient 32-year-old male presented to the emergency room today with a chief complaint alcohol draw. Patient does admit that symptoms started yesterday with increased nausea vomiting. Does admit to shakes. Patient does admit to a history of high blood pressure. His blood pressure was elevated with a systolic greater than 200 and diastolic greater than 100. Patient has not had his medication. Patient did have an EKG obtained and was unremarkable. Patient blood work obtained does show some elevated liver enzymes. His magnesium was low at 0.9. Patient was given 2 g IV magnesium here in the emergency room. He was given Ativan along with clonidine and hydralazine for blood pressure. Vitals have improved. Patient is resting comfortably. Was discussed about admission and he is agreement. Case was discussed with was accepted admission. He is been placed on a CIWA scale protocol. Will be admitted for hypomagnesemia, alcohol withdrawal. - Lab Data Result diagrams: 03/18/23 08:17 03/18/23 08:17 Lab Results 03/18/23 03/18/23 Range/Units 08:17 08:17 WBC 7.8 (3.8-10.6) k/uL RBC 4.30 (4.30-5.90) m/uL Hgb 16.1 (13.0-17.5) gm/dL Hct 46.6 (39.0-53.0) % MCV 108.3 H (80.0-100.0) fL MCH 37.4 H (25.0-35.0) pg MCHC 34.5 (31.0-37.0) g/dL RDW 13.9 (11.5-15.5) % Plt Count 136 L D (150-450) k/uL MPV 8.0 Neutrophils % 59 % Lymphocytes % 33 % Monocytes % 5 % Eosinophils % 2 % Basophils % 0 % Neutrophils # 4.6 (1.3-7.7) k/uL Lymphocytes # 2.5 (1.0-4.8) k/uL Monocytes # 0.4 (0-1.0) k/uL Eosinophils # 0.1 (0-0.7) k/uL Basophils # 0.0 (0-0.2) k/uL Manual Slide Review Performed Macrocytosis Moderate Sodium 134 L (137-145) mmol/L Potassium 3.6 (3.5-5.1) mmol/L Chloride 94 L (98-107) mmol/L Carbon Dioxide 25 (22-30) mmol/L Anion Gap 15 mmol/L BUN 12 (9-20) mg/dL Creatinine 0.72 (0.66-1.25) mg/dL Est GFR (CKD-EPI)AfAm >90 (>60 ml/min/1.73 sqM) Est GFR (CKD-EPI)NonAf >90 (>60 ml/min/1.73 sqM) Glucose 100 H (74-99) mg/dL Calcium 9.0 (8.4-10.2) mg/dL Magnesium 0.9 L* (1.6-2.3) mg/dL Total Bilirubin 3.0 H (0.2-1.3) mg/dL AST 385 H (17-59) U/L ALT 162 H (4-49) U/L Alkaline Phosphatase 306 H (38-126) U/L Total Protein 8.4 H (6.3-8.2) g/dL Albumin 4.4 (3.5-5.0) g/dL Lipase 301 H (23-300) U/L Disposition Clinical Impression: Hypomagnesemia, Alcohol withdrawal, Hypertensive urgency Disposition: ADMITTED IP TO THIS HOSP Condition: Good Referrals: Gabe Flynn DO [Primary Care Provider] - 1-2 days Time of Disposition: 10:28
[2023-03-18 08:42] LABS: Basophils % (A) 0 %; Eosinophils # (A) 0.1 k/uL (0-0.7); Eosinophils % (A) 2 %; HCT 46.6 % (39.0-53.0); HGB 16.1 gm/dL (13.0-17.5); Lymphocytes # (A) 2.5 k/uL (1.0-4.8); Lymphocytes % (A) 33 %; MCH 37.4 pg (25.0-35.0); MCHC 34.5 g/dL (31.0-37.0); MCV 108.3 fL (80.0-100.0); Macrocytosis Moderate; Monocytes # (A) 0.4 k/uL (0-1.0); Monocytes % (A) 5 %; Neutrophils # (A) 4.6 k/uL (1.3-7.7); Neutrophils % (A) 59 %; RDW 13.9 % (11.5-15.5); WBC 7.8 k/uL (3.8-10.6)
[2023-03-18 09:08] LABS: ALT 162 U/L (4-49); AST 385 U/L (17-59); African American GFR (CKD) >90 (>60 ml/min/1.73 sqM); Albumin 4.4 g/dL (3.5-5.0); Alkaline Phosphatase 306 U/L (38-126); Anion Gap 15 mmol/L; Blood Urea Nitrogen 12 mg/dL (9-20); Carbon Dioxide 25 mmol/L (22-30); Chloride 94 mmol/L (98-107); Glucose 100 mg/dL (74-99); Lipase 301 U/L (23-300); Non-African American GFR(CKD) >90 (>60 ml/min/1.73 sqM); Potassium 3.6 mmol/L (3.5-5.1); Sodium 134 mmol/L (137-145); Total Protein 8.4 g/dL (6.3-8.2)
[2023-03-18 09:09] LABS: Magnesium 0.9 mg/dL (1.6-2.3)
[2023-03-18] MEDS: MAGNESIUM SULFATE-D5W PMX 1 GM in DEXTROSE/WATER 1 100ML.BAG IVPB SCH ×4 (09:33→21:19)
[2023-03-18 09:56] LABS: Platelet Count 136 k/uL (150-450)
[2023-03-18] MEDS ORDERED: hydrALAZINE HCL 20 MG/ML 1 ML VIAL IVP STA (09:59)
[2023-03-18] MEDS ORDERED: NALOXONE 0.4 MG/ML 1 ML VIAL IV PRN (10:42)
[2023-03-18] MEDS ORDERED: LORazepam 2 MG/ML INJ IV PRN ×2 (10:45)
[2023-03-18] MEDS ORDERED: THIAMINE 100 MG/ML 2 ML VIAL IM STA (10:45)
[2023-03-18] MEDS ORDERED: LABETALOL 5 MG/ML VIAL MDV IVP STA (11:04)
[2023-03-18] MEDS: SODIUM CHLORIDE 0.9% 1,000 ML IV SCH (11:26)
[2023-03-18] MEDS ORDERED: CALCIUM CARBONATE 500 MG CHEWABLE PO PRN (14:31)
[2023-03-18] MEDS ORDERED: traMADol 50 MG TAB PO PRN (14:31)
[2023-03-18] MEDS ORDERED: LOPERAMIDE 2 MG CAP PO PRN (14:31)
[2023-03-18] MEDS ORDERED: ONDANSETRON 4 MG/2 ML VIAL IVP PRN (14:31)
[2023-03-18] MEDS ORDERED: MELATONIN 3 MG TABLET PO PRN (14:31)
[2023-03-18] MEDS ORDERED: chlordiazePOXIDE 25 MG CAP PO PRN (14:36)
--- NOTE | 2023-03-18 14:37 | P.HPIM ---
History of Present Illness H&P Date: 03/18/23 Chief Complaint: Alcohol withdrawal * 32-year-old gentleman with past medical history significant for hypertension, alcohol use disorder, presented to the emergency department with complains of withdrawal from alcohol. Patient had last drink about 24 hours prior to presentation. * Patient was previously admitted with similar presentation in November 2022. Patient said he was doing fairly well until he got laid off from job last week and since then he's been binge drinking about a pint every day * Patient denies of any associated symptoms including alcohol withdrawal seizure s. Patient does complain of hallucinations angitis * Review of blood work obtained including CBC showed platelet count of 136 normal WBC normal hemoglobin and hematocrit. * Serum chemistry shows sodium 134, magnesium was 0.9 bilirubin of 3 ALT of 162 AST 382 alkaline phosphatase within 06 * Previous ultrasound did show hepatic steatosis * Patient denies chest pain fever chills nausea vomiting alert and oriented 4 REVIEW OF SYSTEMS: Nervous, anxious CONSTITUTIONAL: No fever, no malaise, no fatigue. HEENT: No recent visual problems or hearing problems. Denied any sore throat. CARDIOVASCULAR: No chest pain, orthopnea, PND, no palpitations, no syncope. PULMONARY: No shortness of breath, no cough, no hemoptysis. GASTROINTESTINAL: No diarrhea, no nausea, no vomiting, no abdominal pain. NEUROLOGICAL: No headaches, no weakness, no numbness. HEMATOLOGICAL: Denies any bleeding or petechiae. GENITOURINARY: Denies any burning micturition, frequency, or urgency. MUSCULOSKELETAL/RHEUMATOLOGICAL: Denies any joint pain, swelling, or any muscle pain. ENDOCRINE: Denies any polyuria or polydipsia. PHYSICAL EXAMINATION: GENERAL: The patient is alert and oriented x3, not in any acute distress. Well developed, well nourished. HEENT: Pupils are round and equally reacting to light. EOMI. No scleral icterus. No conjunctival pallor. Normocephalic, atraumatic. No pharyngeal erythema. No thyromegaly. CARDIOVASCULAR: S1 and S2 present. No murmurs, rubs, or gallops. PULMONARY: Chest is clear to auscultation, no wheezing or crackles. ABDOMEN: Soft, nontender, nondistended, normoactive bowel sounds. No palpable organomegaly. MUSCULOSKELETAL: No joint swelling or deformity. EXTREMITIES: No cyanosis, clubbing, or pedal edema. NEUROLOGICAL: Gross neurological examination did not reveal any focal deficits. SKIN: No rashes. Past Medical History Past Medical History: Hypertension Additional Past Medical History / Comment(s): Nephrolithiasis, ETOH abuse with past withdrawal tremors, past alcoholic hepatitis/acute severe kidney injury/hyperphosphatemia/acute metabolic encephalopathy from renal failure. History of Any Multi-Drug Resistant Organisms: None Reported Past Surgical History: Tonsillectomy Past Anesthesia/Blood Transfusion Reactions: No Reported Reaction Past Psychological History: No Psychological Hx Reported Smoking Status: Current every day smoker Past Alcohol Use History: Abuse, Daily, Heavy Past Drug Use History: Cocaine, Marijuana - Past Family History Father Family Medical History: Myocardial Infarction ([place]) Mother Family Medical History: Hypertension Additional Family Medical History / Comment(s): heart stent Medications and Allergies Home Medications Medication Instructions Recorded Confirmed Type Pantoprazole [Protonix] 40 mg PO BID 30 Days #45 tab 11/26/22 03/18/23 Rx carvediloL [Coreg] 3.125 mg PO BID 30 Days #60 tablet 11/26/22 03/18/23 Rx Allergies Allergy/AdvReac Type Severity Reaction Status Date / Time No Known Allergies Allergy Verified 03/18/23 11:57 Physical Exam Vitals: Vital Signs Temp Pulse Resp BP Pulse Ox 03/18/23 11:03 88 97 03/18/23 10:26 95 18 169/117 97 03/18/23 10:02 91 18 183/127 98 03/18/23 09:00 102 H 18 185/134 98 03/18/23 08:50 107 H 18 191/130 98 03/18/23 07:47 98.2 F 124 H 22 202/125 99 Intake and Output 03/17/23 03/18/23 03/18/23 22:59 06:59 14:59 Other: Weight 94.347 kg Results CBC & Chem 7: 03/18/23 08:17 03/18/23 08:17 Labs: Abnormal Lab Results - Last 24 Hours (Table) 03/18/23 03/18/23 Range/Units 08:17 08:17 MCV 108.3 H (80.0-100.0) fL MCH 37.4 H (25.0-35.0) pg Plt Count 136 L D (150-450) k/uL Sodium 134 L (137-145) mmol/L Chloride 94 L (98-107) mmol/L Glucose 100 H (74-99) mg/dL Magnesium 0.9 L* (1.6-2.3) mg/dL Total Bilirubin 3.0 H (0.2-1.3) mg/dL AST 385 H (17-59) U/L ALT 162 H (4-49) U/L Alkaline Phosphatase 306 H (38-126) U/L Total Protein 8.4 H (6.3-8.2) g/dL Lipase 301 H (23-300) U/L Thrombosis Risk Factor Assmnt - DVT/VTE Prophylaxis DVT/VTE Prophylaxis: Mechanical Prophylaxis ordered Assessment and Plan Assessment: Assessment and plan Alcohol use disorder with withdrawal Transaminitis secondary to alcohol use History of hypertension Acute thrombocytopenia secondary to alcohol use * Patient to be admitted, started on alcohol withdrawal protocol, continue Ativan as needed * Continue patient on thiamine and folic acid * Follow-up on liver profile * Continue Coreg for hypertension * CODE STATUS is full code * SCDs for DVT prophylaxis
[2023-03-18] MEDS ORDERED: NICOTINE 21MG/24HR PATCH TRANSDERM STA (15:13)
[2023-03-18] MEDS: PANTOPRAZOLE 40 MG TABLET PO SCH (17:28)
[2023-03-18] MEDS: carvediloL 3.125 MG TAB PO SCH (17:28)
[2023-03-18] MEDS ORDERED: cloNIDine HCL 0.2 MG TAB PO STA (20:03)
[2023-03-18] MEDS: hydrALAZINE HCL 20 MG/ML 1 ML VIAL IVP PRN (22:23)
--- NOTE | 2023-03-19 00:24 | P.PN ---
Subjective Progress Note Date: 03/19/23 * 32-year-old gentleman with past medical history significant for hypertension, alcohol use disorder, presented to the emergency department with complains of withdrawal from alcohol. Patient had last drink about 24 hours prior to presentation. * Patient was previously admitted with similar presentation in November 2022. Patient said he was doing fairly well until he got laid off from job last week and since then he's been binge drinking about a pint every day * Patient denies of any associated symptoms including alcohol withdrawal seizures. Patient does complain of hallucinations angitis * Review of blood work obtained including CBC showed platelet count of 136 normal WBC normal hemoglobin and hematocrit. * Serum chemistry shows sodium 134, magnesium was 0.9 bilirubin of 3 ALT of 162 AST 382 alkaline phosphatase within 06 * Previous ultrasound did show hepatic steatosis * 03/19/2023: Patient seen and evaluated at bedside, does complain of right shoulder pain, ultrasound abdomen ordered. Potassium replaced. Liver profile shows elevated ALT and AST 139 and 359 respectively, bilirubin 3.4 magnesium improved, denies major withdrawal symptoms at this point Objective - Vital Signs Vital signs: Vital Signs Temp 98 F 03/18/23 23:25 Pulse 84 03/18/23 23:25 Resp 20 03/18/23 23:25 BP 167/112 03/18/23 23:25 Pulse Ox 97 03/18/23 23:25 FiO2 Intake & Output 03/18/23 03/18/23 03/19/23 06:59 18:59 06:59 Weight 94.347 kg 94.347 kg - Exam PHYSICAL EXAMINATION: GENERAL: The patient is alert and oriented x3, not in any acute distress. Well developed, well nourished. HEENT: Pupils are round and equally reacting to light. EOMI. No scleral icterus. No conjunctival pallor. Normocephalic, atraumatic. No pharyngeal erythema. No thyromegaly. CARDIOVASCULAR: S1 and S2 present. No murmurs, rubs, or gallops. PULMONARY: Chest is clear to auscultation, no wheezing or crackles. ABDOMEN: Soft, nontender, nondistended, normoactive bowel sounds. No palpable organomegaly. MUSCULOSKELETAL: No joint swelling or deformity. EXTREMITIES: No cyanosis, clubbing, or pedal edema. NEUROLOGICAL: Gross neurological examination did not reveal any focal deficits. SKIN: No rashes. - Labs CBC & Chem 7: 10/07/23 03:36 03/19/23 03:36 Labs: Abnormal Lab Results - Last 24 Hours (Table) 03/18/23 03/18/23 Range/Units 08:17 08:17 MCV 108.3 H (80.0-100.0) fL MCH 37.4 H (25.0-35.0) pg Plt Count 136 L D (150-450) k/uL Sodium 134 L (137-145) mmol/L Chloride 94 L (98-107) mmol/L Glucose 100 H (74-99) mg/dL Magnesium 0.9 L* (1.6-2.3) mg/dL Total Bilirubin 3.0 H (0.2-1.3) mg/dL AST 385 H (17-59) U/L ALT 162 H (4-49) U/L Alkaline Phosphatase 306 H (38-126) U/L Total Protein 8.4 H (6.3-8.2) g/dL Lipase 301 H (23-300) U/L Assessment and Plan Assessment: Assessment and plan Alcohol use disorder with withdrawal Transaminitis secondary to alcohol use History of hypertension Acute thrombocytopenia secondary to alcohol use * Patient to be admitted, started on alcohol withdrawal protocol, continue Ativan as needed * Continue patient on thiamine and folic acid * Follow-up on liver profile, ultrasound abdomen ordered * Continue Coreg for hypertension * CODE STATUS is full code * SCDs for DVT prophylaxis
[2023-03-19 03:56] LABS: Basophils % (A) 0 %; Eosinophils # (A) 0.1 k/uL (0-0.7); Eosinophils % (A) 2 %; HCT 41.4 % (39.0-53.0); Lymphocytes # (A) 1.4 k/uL (1.0-4.8); Lymphocytes % (A) 28 %; MCH 36.8 pg (25.0-35.0); MCHC 33.7 g/dL (31.0-37.0); MCV 109.1 fL (80.0-100.0); Macrocytosis Marked; Mean Platelet Volume 7.8; Monocytes # (A) 0.2 k/uL (0-1.0); Monocytes % (A) 5 %; Neutrophils # (A) 3.1 k/uL (1.3-7.7); Neutrophils % (A) 64 %; Platelet Count 103 k/uL (150-450); RBC 3.79 m/uL (4.30-5.90); RDW 13.7 % (11.5-15.5); WBC 4.9 k/uL (3.8-10.6)
[2023-03-19 04:34] LABS: ALT 139 U/L (4-49); AST 359 U/L (17-59); African American GFR (CKD) >90 (>60 ml/min/1.73 sqM); Albumin 3.7 g/dL (3.5-5.0); Alkaline Phosphatase 244 U/L (38-126); Anion Gap 11 mmol/L; Blood Urea Nitrogen 4 mg/dL (9-20); Calcium 8.4 mg/dL (8.4-10.2); Carbon Dioxide 23 mmol/L (22-30); Chloride 97 mmol/L (98-107); Glucose 150 mg/dL (74-99); Non-African American GFR(CKD) >90 (>60 ml/min/1.73 sqM); Potassium 3.1 mmol/L (3.5-5.1); Sodium 131 mmol/L (137-145); Total Bilirubin 3.4 mg/dL (0.2-1.3); Total Protein 7.1 g/dL (6.3-8.2)
[2023-03-19 04:55] LABS: Polychromasia Present; Tear Drop Cells Present
[2023-03-19] MEDS: PANTOPRAZOLE 40 MG TABLET PO SCH ×2 (06:12→16:57)
[2023-03-19] MEDS: carvediloL 3.125 MG TAB PO SCH ×2 (06:12→16:57)
[2023-03-19] MEDS: SODIUM CHLORIDE 0.9% 1,000 ML IV SCH ×2 (08:49→15:14)
[2023-03-19] MEDS ORDERED: THIAMINE 100 MG TAB PO SCH (09:00)
[2023-03-19] MEDS ORDERED: FOLIC ACID 1 MG TAB PO SCH (09:00)
[2023-03-19] MEDS ORDERED: NICOTINE 21MG/24HR PATCH TRANSDERM SCH (09:15)
[2023-03-19] MEDS: POTASSIUM CHLORIDE 10 MEQ in WATER FOR INJECTION 1 100ML.BAG IVPB SCH ×2 (09:28→10:31)
[2023-03-19 14:08] VITALS: RESP 18; TEMP 97.4
--- NOTE | 2023-03-19 14:37 | XR ---
Right shoulder HISTORY: Pain findings trauma COMPARISON: None TECHNIQUE: 3 views the right shoulder were obtained. FINDINGS: There is no fracture, dislocation, intraosseous or intra-articular abnormality. There are no soft tis keyla abnormalities. IMPRESSION: No significant abnormality seen.
[2023-03-19] MEDS: hydrALAZINE HCL 20 MG/ML 1 ML VIAL IVP PRN (19:25)
[2023-03-19 19:55] VITALS: BP 173/108; PULSE 81
--- NOTE | 2023-03-19 21:07 | P.DS ---
Providers Date of admission: 03/18/23 10:44 Expected date of discharge: 03/19/23 Attending physician: Susan Guo MD Primary care physician: Gabe Flynn [facility] Course: * 32-year-old gentleman with past medical history significant for hypertension, alcohol use disorder, presented to the emergency department with complains of withdrawal from alcohol. Patient had last drink about 24 hours prior to presentation. * Patient was previously admitted with similar presentation in November 2022. Patient said he was doing fairly well until he got laid off from job last week and since then he's been binge drinking about a pint every day * Patient denies of any associated symptoms including alcohol withdrawal seizures. Patient does complain of hallucinations angitis * Review of blood work obtained including CBC showed platelet count of 136 normal WBC normal hemoglobin and hematocrit. * Serum chemistry shows sodium 134, magnesium was 0.9 bilirubin of 3 ALT of 162 AST 382 alkaline phosphatase within 06 * Previous ultrasound did show hepatic steatosis * 03/19/2023: Patient seen and evaluated at bedside, does complain of right shoulder pain, ultrasound abdomen ordered. Potassium replaced. Liver profile shows elevated ALT and AST 139 and 359 respectively, bilirubin 3.4 magnesium improved, denies major withdrawal symptoms at this point * Left AMA Assessment: Assessment and plan Alcohol use disorder with withdrawal Transaminitis secondary to alcohol use History of hypertension Acute thrombocytopenia secondary to alcohol use * Patient to be admitted, started on alcohol withdrawal protocol, continue Ativan as needed * Continue patient on thiamine and folic acid * Follow-up on liver profile, ultrasound abdomen ordered * Left AMA Patient Condition at Discharge: Good Plan - Discharge Summary Discharge Rx Participant: No New Discharge Prescriptions: No Action carvediloL [Coreg] 3.125 mg PO BID 30 Days #60 tablet Pantoprazole [Protonix] 40 mg PO BID 30 Days #45 tab Discharge Medication List Pantoprazole [Protonix] 40 mg PO BID 30 Days #45 tab 11/26/22 [Rx] carvediloL [Coreg] 3.125 mg PO BID 30 Days #60 tablet 11/26/22 [Rx] Follow up Appointment(s)/Referral(s): Gabe Flynn DO [Primary Care Provider] - 1-2 days Discharge Disposition: LEFT AGAINST MEDICAL ADVICE
== END 2023-03-19 20:17 | disposition left against medical advice (07) | DRG 894 ==
LOC: EC 07:45 → 4SSUR 10:44 → 3SCARD 20:09
PROVIDERS: ADMIT Internal Medicine; ATTEND Internal Medicine
DX: F10.139 Alcohol abuse with withdrawal, unspecified (principal); D69.59 Other secondary thrombocytopenia; E83.42 Hypomagnesemia; F17.200 Nicotine dependence, unspecified, uncomplicated; I16.0 Hypertensive urgency; K76.0 Fatty (change of) liver, not elsewhere classified; Z79.899 Other long term (current) drug therapy; Z82.49 Family history of ischemic heart disease and other diseases of the circulatory system; Z87.442 Personal history of urinary calculi
CPT/HCPCS: 36415; 80053; 83690; 83735; 85025; 93005; 96361; 96365; 96366; 96372; 96375; 96376; 99285

== ENCOUNTER → 2023-04-21 | Outpatient (CLI) | payer OTHER ==
--- NOTE | 2023-04-21 09:10 | US ---
EXAMINATION TYPE: US liver DATE OF EXAM: 04/21/2023 COMPARISON: US liver 11/21/2022 CLINICAL INDICATION: Male, 32 years old with history of R74.8 ABNORMAL LEVELS OF OTHER SERUM ENZYMES ; Elevated LFT's TECHNIQUE: Multiple sonographic images of the right upper quadrant are obtained. 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 The tail is obscured by overlying bowel gas. Liver is enlarged with heterogenous increased echotexture. This limits evaluation for intrahepatic masses. No gross evidence of intrahepatic mass. No biliary ductal dilatation. Difficult to penetrate. Gallbla dder slightly contracted without evidence of gallstones, wall thickening or surrounding fluid. Negati ve sonographic Johnston sign. Common bile duct is within normal limits. Right kidney is unremarkable wi thout evidence of hydronephrosis, nephrolithiasis, or solid mass. IMPRESSION: 1. No acute process. 2. Hepatic steatosis with hepatomegaly.
== END | disposition home or self-care (01) ==
LOC: RADUSWWP 08:36
PROVIDERS: ATTEND Family Medicine
DX: K76.0 Fatty (change of) liver, not elsewhere classified (principal); R16.0 Hepatomegaly, not elsewhere classified; R74.8 Abnormal levels of other serum enzymes
CPT/HCPCS: 76705

== ENCOUNTER 2023-06-06 11:32 | Emergency (ER) | payer OTHER ==
[2023-06-06 11:57] VITALS: TEMP 98.3
[2023-06-06 12:18] VITALS: RESP 20
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
[2023-06-06] MEDS ORDERED: KETOROLAC 15 MG/ML 1 ML VIAL IM STA (12:46)
--- NOTE | 2023-06-06 12:51 | XR ---
EXAMINATION TYPE: XR ribs RT w pa chest xray, 5 views DATE OF EXAM: 06/06/2023 COMPARISON: 09/08/2022 HISTORY: 32-year-old male right-sided chest pain FINDINGS: Heart normal size. Aorta and pulmonary vasculature within normal limits. No consolidation, pneumothor ax, or pleural effusion. Right RIBS: There are minimally offset fractures of the right anterolateral fourth and fifth ribs. IMPRESSION: 1. Minimally offset fractures of the right anterolateral fourth and fifth ribs. 2. No acute cardiopulmonary process.
[2023-06-06] MEDS ORDERED: ACET/COD 300 MG/30 MG STARTER PACK 6 TAB BTL PO STA (13:11)
[2023-06-06] MEDS ORDERED: carvediloL 3.125 MG TAB PO STA (13:11)
[2023-06-06 13:42] VITALS: BP 140/80; PULSE 86
== END 2023-06-06 13:38 | disposition home or self-care (01) ==
LOC: EC 11:32
DX: S22.41XA Multiple fractures of ribs, right side, initial encounter for closed fracture (principal); I10 Essential (primary) hypertension; F12.90 Cannabis use, unspecified, uncomplicated; F17.200 Nicotine dependence, unspecified, uncomplicated; W18.30XA Fall on same level, unspecified, initial encounter
CPT/HCPCS: 71101; 99285; 96372; J1885

== ENCOUNTER 2023-06-08 18:30 | Emergency (ER) | payer OTHER ==
--- NOTE | 2023-06-08 18:36 | ED ---
Back Pain HPI - General Source: patient, RN notes reviewed <Sue Cm - Last Filed: 06/08/23 18:35> - General Source: patient, RN notes reviewed Mode of arrival: ambulatory Limitations: no limitations <Nicole Canchola - Last Filed: 06/09/23 03:39> - General Chief Complaint: Abdominal Pain Stated Complaint: Kidney pain Time Seen by Provider: 06/08/23 18:35 - History of Present Illness Initial Comments: Patient is a 32-year-old male presented ER with chief complaint of "kidney pain". Patient states he was seen here on and given ketorolac and Middleton for pain due to broken ribs. Patient is now endorsing right sided back pain. He is unsure if it's from his bruise on that side. Patient denies any chest pain, shortness of breath, fevers, chills, night sweats. Patient also states that he did notice some blood in his urine earlier today. No history of kidney stones. (Sue Cm) This is a 32-year-old male who presents to the emergency department for abdominal pain. He was evaluated here on for a fall. He had fallen down stairs 2 days prior and he was found to have 2 broken ribs on the right side. He continues to have pain and bruising over the areas of the broken ribs, but is now having pain in the lower abdomen as well. He is taking Middleton and Toradol as prescribed, but is concerned about having "kidney pain". States that he also noticed some blood in his urine earlier today. Denies any history of kidney stones. Pain is not more severe on one side versus the other. Denies any burning with urination. (Nicole Canchola) - Related Data Previous Rx's Medication Instructions Recorded RX: Pantoprazole [Protonix] 40 mg PO BID 30 Days #45 tab 11/26/22 carvediloL [Coreg] 3.125 mg PO BID 30 Days #60 tablet 11/26/22 Ketorolac [Toradol] 10 mg PO Q8HR #15 tab 06/06/23 Allergies Allergy/AdvReac Type Severity Reaction Status Date / Time No Known Allergies Allergy Verified 06/08/23 19:41 Review of Systems ROS Other: All systems not noted in ROS Statement are negative. <Sue Cm - Last Filed: 06/08/23 18:35> ROS Other: All systems not noted in ROS Statement are negative. <Nicole Canchola - Last Filed: 06/09/23 03:39> ROS Statement: Those systems with pertinent positive or pertinent negative responses have been documented in the HPI. Past Medical History Past Medical History: Hypertension Additional Past Medical History / Comment(s): Nephrolithiasis, ETOH abuse with p ast withdrawal tremors, past alcoholic hepatitis/acute severe kidney injury/hyperphosphatemia/acute metabolic encephalopathy from renal failure. History of Any Multi-Drug Resistant Organisms: None Reported Past Surgical History: Tonsillectomy Past Anesthesia/Blood Transfusion Reactions: No Reported Reaction Past Psychological History: No Psychological Hx Reported Smoking Status: Current every day smoker Past Alcohol Use History: Abuse, Daily, Heavy Past Drug Use History: Cocaine, Marijuana - Past Family History Father Family Medical History: Myocardial Infarction ([place]) Mother Family Medical History: Hypertension Additional Family Medical History / Comment(s): heart stent <Sue Cm - Last Filed: 06/08/23 18:35> General Exam <Sue Cm - Last Filed: 06/08/23 18:35> Limitations: no limitations General appearance: alert, in no apparent distress Head exam: Present: atraumatic, normocephalic, normal inspection Respiratory exam: Present: normal lung sounds bilaterally. Absent: respiratory distress, wheezes, rales, rhonchi, stridor Cardiovascular Exam: Present: regular rate, normal rhythm, normal heart sounds. Absent: systolic murmur, diastolic murmur, rubs, gallop, clicks GI/Abdominal exam: Present: soft, tenderness (diffuse), normal bowel sounds. Absent: distended Neurological exam: Present: alert, oriented X3, CN II-XII intact Psychiatric exam: Present: normal affect, normal mood Skin exam: Present: warm, dry, intact, normal color. Absent: rash <Nicole Canchola - Last Filed: 06/09/23 03:39> - General Exam Comments Initial Comments: Visual Physical Exam Vital signs reviewed General: Well-appearing, nontoxic, no acute distress. Head: Normocephalic, atraumatic Eyes: PERRLA, EOMI ENT: Airway patent Chest: Nonlabored breathing Skin: No visual rash, normal skin tone Neuro: Alert and oriented 3 Musculoskeletal: No gross abnormalities (Sue Cm) Course Vital Signs 06/08/23 06/09/23 19:38 00:49 Temperature 98.6 F Pulse Rate 119 H 93 Respiratory 20 20 Rate Blood Pressure 223/151 153/106 O2 Sat by Pulse 98 98 Oximetry Medical Decision Making <Sue Cm - Last Filed: 06/08/23 18:35> - Lab Data Result diagrams: 06/08/23 22:15 06/08/23 22:15 - Radiology Data Radiology results: report reviewed, image reviewed <Nicole Canchola - Last Filed: 06/09/23 03:39> - Medical Decision Making I performed the quick note portion of the exam. Electronically signed by Sue Cm PA-C (Sue Cm) This is a 32-year-old male who presents to the emergency department for abdominal pain. Was pt. sent in by a medical professional or institution? @ -No Did you speak to anyone other than the patient for history? @ -No Did you review nursing and triage notes? @ -Yes, and I agree, it is accurate with regards to the patient's symptoms. Were old charts reviewed? @ -No Differential Diagnosis? @ -Differential Abdominal Pain Men: Appendicitis, cholecystitis, diverticulosis, ischemic bowel, pancreatitis, hep atitis, UTI, gastroenteritis, AAA, incarcerated hernia, bowel obstruction, constipation, inflammatory bowel, hepatitis, peptic ulcer disease, splenic infarction, perforated viscus, testicular torsion, this is not meant to be an all-inclusive list EKG interpreted by me (3pts min.)? @ -Not obtained X-rays interpreted by me (1pt min.)? @ -Not obtained CT interpreted by me (1pt min.)? @ -CT scan of the abdomen and pelvis obtained. My interpretation identifies no evidence of bowel wall thickening or free air. U/S interpreted by me (1pt. min.)? @ -Not obtained What testing was considered but not performed? (CT, X-rays, U/S, labs)? Why? @ -None What meds were considered but not given? Why? @ -None Did you discuss the management of the patient with other professionals? @ -No Did you reconcile home meds? @ -No Was smoking cessation discussed for >3mins.? @ -I discussed smoking cessation for greater than 3 minutes. The risk of smoking were discussed with the patient including but not limited to risks of cancer, stroke, coronary artery disease and COPD. Also discussed with patient were multiple methods of quitting smoking. Lastly we discussed the financial cost of smoking. Was critical care preformed (if so, how long)? @ -No Were there social determinants of health that impacted care today? How? (Homelessness, low income, unemployed, alcoholism, drug addiction, transportation, low edu. Level, literacy, decrease access to med. care, assisted, rehab)? @ -Alcoholism, contributing to his elevated liver enzymes and increasing his risk for multiple health problems. Was there de-escalation of care discussed even if they declined? (Discuss DNR or withdrawal of care, Hospice)? @ -No What co-morbidities impacted this encounter? (DM, HTN, Smoking, COPD, CAD, Cancer, CVA, Hep., AIDS, mental health diagnosis, sleep apnea, morbid obesity)? @ -HTN, kidney stones, alcoholism, smoking Was patient admitted / discharged? @ -Discharged. Lab work obtained demonstrating elevated liver enzymes, which are actually improved when compared with prior values. Blood work was otherwise unremarkable. His symptoms were well controlled in the emergency department. Computed tomography scan of the abdomen and pelvis obtained revealing no acute process. Advised that the cause of his symptoms is not entirely clear. He did get a liter bolus of IV fluids in the emergency department, and he states that his urine seemed to get much clearer afterwards. Advised he continue taking the medications that he was previously prescribed, drink plenty of fluids, and to follow-up with his primary care provider. Undiagnosed new problem with uncertain prognosis? @ -None Drug Therapy requiring intensive monitoring for toxicity (Heparin, Nitro, Insulin, Cardizem)? @ -None Were any procedures done? @ -None Diagnosis/symptom? @ -Abdominal pain Acute, or Chronic, or Acute on Chronic? @ -Acute Uncomplicated (without systemic symptoms) or Complicated (systemic symptoms)? @ -Uncomplicated Side effects of treatment? @ -None Exacerbation, Progression, or Severe Exacerbation] @ -Not applicable Poses a threat to life or bodily function? @ -No Return precautions reviewed in depth, the patient is instructed to return to the emergency department with any new, worsening, or concerning symptoms. Patient verbalized understanding. This case was discussed in detail with the attending ED physician, Dr. Dunham. Presentation, findings, and treatment plan discussed in detail as well. (Nicole Canchola) - Lab Data Lab Results 06/08/23 06/08/23 06/08/23 Range/Units 22:15 22:15 22:15 WBC 8.8 (3.8-10.6) k/uL RBC 4.32 (4.30-5.90) m/uL Hgb 16.3 (13.0-17.5) gm/dL Hct 45.6 (39.0-53.0) % MCV 105.4 H (80.0-100.0) fL MCH 37.8 H (25.0-35.0) pg MCHC 35.8 (31.0-37.0) g/dL RDW 14.3 (11.5-15.5) % Plt Count 213 (150-450) k/uL MPV 7.7 Macrocytosis Moderate Sodium 132 L (137-145) mmol/L Potassium 3.5 (3.5-5.1) mmol/L Chloride 89 L (98-107) mmol/L Carbon Dioxide 23 (22-30) mmol/L Anion Gap 20 mmol/L BUN 14 (9-20) mg/dL Creatinine 0.82 (0.66-1.25) mg/dL Est GFR (CKD-EPI)AfAm >90 (>60 ml/min/1.73 sqM) Est GFR (CKD-EPI)NonAf >90 (>60 ml/min/1.73 sqM) Glucose 168 H (74-99) mg/dL Plasma Lactic Acid Raul (0.7-2.0) mmol/L Calcium 9.8 (8.4-10.2) mg/dL Total Bilirubin 1.8 H (0.2-1.3) mg/dL AST 161 H (17-59) U/L ALT 64 H (4-49) U/L Alkaline Phosphatase 204 H (38-126) U/L Total Protein 9.9 H (6.3-8.2) g/dL Albumin 5.5 H (3.5-5.0) g/dL Urine Color Dark Brown Urine Appearance Cloudy (Clear) Urine pH 5.5 (5.0-8.0) Ur Specific Madelia 1.030 (1.001-1.035) Urine Protein 3+ H (Negative) Urine Glucose (UA) Trace H (Negative) Urine Ketones Trace H (Negative) Urine Blood Trace H (Negative) Urine Nitrite Negative (Negative) Urine Bilirubin 2+ H (Negative) Urine Urobilinogen 4.0 (<2.0) mg/dL Ur Leukocyte Esterase Negative (Negative) Urine RBC <1 (0-5) /hpf Urine WBC 2 (0-5) /hpf Ur Squamous Epith Cells 1 (0-4) /hpf Hyaline Casts 81 H (0-2) /lpf Urine Mucus Many H (None) /hpf 06/08/23 Range/Units 22:15 WBC (3.8-10.6) k/uL RBC (4.30-5.90) m/uL Hgb (13.0-17.5) gm/dL Hct (39.0-53.0) % MCV (80.0-100.0) fL MCH (25.0-35.0) pg MCHC (31.0-37.0) g/dL RDW (11.5-15.5) % Plt Count (150-450) k/uL MPV Macrocytosis Sodium (137-145) mmol/L Potassium (3.5-5.1) mmol/L Chloride (98-107) mmol/L Carbon Dioxide (22-30) mmol/L Anion Gap mmol/L BUN (9-20) mg/dL Creatinine (0.66-1.25) mg/dL Est GFR (CKD-EPI)AfAm (>60 ml/min/1.73 sqM) Est GFR (CKD-EPI)NonAf (>60 ml/min/1.73 sqM) Glucose (74-99) mg/dL Plasma Lactic Acid Raul 1.0 (0.7-2.0) mmol/L Calcium (8.4-10.2) mg/dL Total Bilirubin (0.2-1.3) mg/dL AST (17-59) U/L ALT (4-49) U/L Alkaline Phosphatase (38-126) U/L Total Protein (6.3-8.2) g/dL Albumin (3.5-5.0) g/dL Urine Color Urine Appearance (Clear) Urine pH (5.0-8.0) Ur Specific Mad[place] (1.001-1.035) Urine Protein (Negative) Urine Glucose (UA) (Negative) Urine Ketones (Negative) Urine Blood (Negative) Urine Nitrite (Negative) Urine Bilirubin (Negative) Urine Urobilinogen (<2.0) mg/dL Ur Leukocyte Esterase (Negative) Urine RBC (0-5) /hpf Urine WBC (0-5) /hpf Ur Squamous Epith Cells (0-4) /hpf Hyaline Casts (0-2) /lpf Urine Mucus (None) /hpf Disposition <Sue Cm - Last Filed: 06/08/23 18:35> Is patient prescribed a controlled substance at d/c from ED?: No <Nicole Canchola - Last Filed: 06/09/23 03:39> Clinical Impression: Abdominal pain Disposition: HOME SELF-CARE Condition: Stable Instructions (If sedation given, give patient instructions): Abdominal Pain (ED) Additional Instructions: Return to the emergency department with any new, worsening, or concerning symptoms. Continue to take your previously prescribed medications. Follow up with your primary care provider in 1-2 days. Referrals: Gabe Flynn DO [Primary Care Provider] - 1-2 days
[2023-06-08 20:00] VITALS: RESP 20; TEMP 98.6
[2023-06-08] MEDS ORDERED: MORPHINE SULFATE 4 MG/ML SYRINGE IVP STA (22:14)
[2023-06-08] MEDS ORDERED: SODIUM CHLORIDE 0.9% 1,000 ML IV STA (22:15)
[2023-06-08 22:35] LABS: HCT 45.6 % (39.0-53.0); HGB 16.3 gm/dL (13.0-17.5); MCH 37.8 pg (25.0-35.0); MCHC 35.8 g/dL (31.0-37.0); MCV 105.4 fL (80.0-100.0); Macrocytosis Moderate; Mean Platelet Volume 7.7; Platelet Count 213 k/uL (150-450); RBC 4.32 m/uL (4.30-5.90); RDW 14.3 % (11.5-15.5); WBC 8.8 k/uL (3.8-10.6)
[2023-06-08 22:44] LABS: ALT 64 U/L (4-49); AST 161 U/L (17-59); African American GFR (CKD) >90 (>60 ml/min/1.73 sqM); Albumin 5.5 g/dL (3.5-5.0); Alkaline Phosphatase 204 U/L (38-126); Anion Gap 20 mmol/L; Blood Urea Nitrogen 14 mg/dL (9-20); Calcium 9.8 mg/dL (8.4-10.2); Carbon Dioxide 23 mmol/L (22-30); Chloride 89 mmol/L (98-107); Glucose 168 mg/dL (74-99); Non-African American GFR(CKD) >90 (>60 ml/min/1.73 sqM); Potassium 3.5 mmol/L (3.5-5.1); Sodium 132 mmol/L (137-145); Total Bilirubin 1.8 mg/dL (0.2-1.3); Total Protein 9.9 g/dL (6.3-8.2)
[2023-06-08 22:55] LABS: Appearance,Urine Cloudy (Clear); Bilirubin,Urine 2+ (Negative); Blood,Urine Trace (Negative); Color,Urine Dark Brown; Glucose,Urine (UA) Trace (Negative); Hyaline Casts,Urine 81 /lpf (0-2); Ketones,Urine Trace (Negative); Leukocyte Esterase,Urine Negative (Negative); Mucus,Urine Many /hpf; Nitrite,Urine Negative (Negative); PH, Urine 5.5 (5.0-8.0); Protein,Urine 3+ (Negative); RBC,Urine <1 /hpf (0-5); Squamous Epithelial Cell,Urine 1 /hpf (0-4); WBC,Urine 2 /hpf (0-5)
--- NOTE | 2023-06-09 00:26 | CT ---
EXAM: CT Abdomen and Pelvis With Intravenous Contrast CLINICAL HISTORY: ITS.REASON CT Reason: Abdominal pain, acute, nonlocalized TECHNIQUE: Axial computed tomography images of the abdomen and pelvis with intravenous contrast. CTDI is 22.4 mGy and DLP is 1121.7 mGy-cm. This CT exam was performed using one or more of the following dose reduction techniques: automated exposure control, adjustment of the mA and/or kV according to patient size, and/or use of iterative reconstruction technique. COMPARISON: No relevant prior studies available. FINDINGS: Lung bases: Unremarkable. No mass. No consolidation. ABDOMEN: Liver: Hepatic steatosis. Gallbladder and bile ducts: Unremarkable. No calcified stones. No ductal dilation. Normal gallbladder. Pancreas: Unremarkable. No mass. No ductal dilation. Spleen: Unremarkable. No splenomegaly. Adrenals: Unremarkable. Normal adrenal glands. Kidneys and ureters: Unremarkable. No hydronephrosis or delayed nephrogram. Stomach and bowel: Unremarkable. No acute diverticulitis. No bowel obstruction. No free air. PELVIS: Appendix: Normal appendix. Bladder: Decompressed urinary bladder. Reproductive: Unremarkable as visualized. ABDOMEN and PELVIS: Intraperitoneal space: See above. Bones/joints: No acute fracture. No dislocation. Soft tissues: Unremarkable. Vasculature: Unremarkable. No abdominal aortic aneurysm. Lymph nodes: Unremarkable. No enlarged lymph nodes. IMPRESSION: 1. No acute diverticulitis. No bowel obstruction. No free air. 2. Normal appendix. 3. Hepatic steatosis.
[2023-06-09 01:03] VITALS: BP 153/106; PULSE 93
[2023-06-09] MEDS ORDERED: HYDROmorphone 0.5 MG/0.5 ML SYRINGE IVP STA (01:10)
[2023-06-09] MEDS ORDERED: NICOTINE 14MG/24HR PATCH TRANSDERM STA (01:10)
== END 2023-06-09 01:31 | disposition home or self-care (01) ==
LOC: EC 18:30
DX: R10.30 Lower abdominal pain, unspecified (principal); I10 Essential (primary) hypertension; F17.200 Nicotine dependence, unspecified, uncomplicated; F12.90 Cannabis use, unspecified, uncomplicated; F14.90 Cocaine use, unspecified, uncomplicated
CPT/HCPCS: 36415; 80053; 83605; 85027; 81001; 74177; 99284; 96374; 96375; 96361 ×3; 99406; S4990; J2270; J1170; Q9967

== ENCOUNTER 2023-09-22 14:19 | Emergency (ER) | payer OTHER ==
--- NOTE | 2023-09-22 14:54 | ED ---
Abdominal Pain HPI - General Chief Complaint: Abdominal Pain Stated Complaint: Abd Pain Time Seen by Provider: 09/22/23 14:44 Source: patient, RN notes reviewed Mode of arrival: ambulatory Limitations: no limitations - History of Present Illness Initial Comments: This is a 33-year-old male who presents to the emergency department for abdominal pain. Pain is in the right upper quadrant region and over the right rib cage. States that it started about 4 days ago. He did have 1 episode of blood in his stool earlier today, however he has had a bowel movement since and there was not any blood in it. Pain is worse with movement. Denies any pain in the chest or shortness of breath. Denies any history of similar pains in the past, fevers, or chills. MD Complaint: abdominal pain - Related Data Home Medications Medication Instructions Recorded Confirmed Ibuprofen [Motrin] 600 mg PO TID PRN 09/22/23 09/22/23 Pantoprazole [Protonix] 40 mg PO DAILY 09/22/23 09/22/23 methocarbamoL [Robaxin] 500 mg PO BID PRN 09/22/23 09/22/23 Previous Rx's Medication Instructions Recorded Ibuprofen [Motrin] 800 mg PO Q8H PRN #30 tab 09/22/23 Lidocaine 5% Patch [Lidoderm 5% 1 patch TOPICAL DAILY PRN #30 patch 09/22/23 Patch] methocarbamoL [Robaxin-750] 1,500 mg PO TID PRN #30 tab 09/22/23 Allergies Allergy/AdvReac Type Severity Reaction Status Date / Time No Known Allergies Allergy Verified 09/22/23 16:36 Review of Systems ROS Statement: Those systems with pertinent positive or pertinent negative responses have been documented in the HPI. ROS Other: All systems not noted in ROS Statement are negative. Past Medical History Past Medical History: Hypertension Additional Past Medical History / Comment(s): Nephrolithiasis, ETOH abuse with past withdrawal tremors, past alcoholic hepatitis/acute severe kidney injury/hyperphosphatemia/acute metabolic encephalopathy from renal failure. History of Any Multi-Drug Resistant Organisms: None Reported Past Surgical History: Tonsillectomy Past Anesthesia/Blood Transfusion Reactions: No Reported Reaction Past Psychological History: No Psychological Hx Reported Smoking Status: Current every day smoker Past Alcohol Use History: Abuse, Daily, Heavy Past Drug Use History: Cocaine, Marijuana - Past Family History Father Family Medical History: Myocardial Infarction (MT) Mother Family Medical History: Hypertension Additional Family Medical History / Comment(s): heart stent General Exam Limitations: no limitations General appearance: alert, in no apparent distress Head exam: Present: atraumatic, normocephalic, normal inspection Respiratory exam: Present: normal lung sounds bilaterally. Absent: respiratory distress, wheezes, rales, rhonchi, stridor Cardiovascular Exam: Present: regular rate, normal rhythm, normal heart sounds. Absent: systolic murmur, diastolic murmur, rubs, gallop, clicks GI/Abdominal exam: Present: soft, tenderness (RUQ), normal bowel sounds. Absent: distended, guarding, rebound, rigid Neurological exam: Present: alert, oriented X3, CN II-XII intact Psychiatric exam: Present: normal affect, normal mood Skin exam: Present: warm, dry, intact, normal color. Absent: rash Course Vital Signs 09/22/23 14:25 Temperature 97.9 F Pulse Rate 110 H Respiratory 18 Rate Blood Pressure 180/125 O2 Sat by Pulse 96 Oximetry Medical Decision Making - Medical Decision Making This is a 33 year old male who presents to the emergency department for abdominal pain. Was pt. sent in by a medical professional or institution? @ -No Did you speak to anyone other than the patient for history? @ -No Did you review nursing and triage notes? @ -Yes, and I agree, it is accurate with regards to the patient's symptoms. Were old charts reviewed? @ -No Differential Diagnosis? @ -Differential Abdominal Pain Men: Appendicitis, cholecystitis, diverticulosis, ischemic bowel, pancreatitis, hepatitis, UTI, gastroenteritis, AAA, incarcerated hernia, bowel obstruction, constipation, inflammatory bowel, hepatitis, peptic ulcer disease, splenic i nfarction, perforated viscus, testicular torsion, this is not meant to be an all-inclusive list EKG interpreted by me (3pts min.)? @ -Not obtained X-rays interpreted by me (1pt min.)? @ -Chest x-ray obtained, my interpretation identifies no localized consolidations or infiltrates. CT interpreted by me (1pt min.)? @ -None obtained U/S interpreted by me (1pt. min.)? @ -Gallbladder ultrasound obtained. My interpretation identifies no evidence of cholelithiasis What testing was considered but not performed? (CT, X-rays, U/S, labs)? Why? @ -None What meds were considered but not given? Why? @ -None Did you discuss the management of the patient with other professionals? @ -No Did you reconcile home meds? @ -No Was smoking cessation discussed for >3mins.? @ -I discussed smoking cessation for greater than 3 minutes. The risk of smoking were discussed with the patient including but not limited to risks of cancer, stroke, coronary artery disease and COPD. Also discussed with patient were multiple methods of quitting smoking. Lastly we discussed the financial cost of smoking. Was critical care preformed (if so, how long)? @ -No Were there social determinants of health that impacted care today? How? (Homelessness, low income, unemployed, alcoholism, drug addiction, transportation, low edu. Level, literacy, decrease access to med. care, alf, rehab)? @ -Alcohol abuse, contributing to the elevated liver enzymes Was there de-escalation of care discussed even if they declined? (Discuss DNR or withdrawal of care, Hospice)? @ -No What co-morbidities impacted this encounter? (DM, HTN, Smoking, COPD, CAD, Cancer, CVA, Hep., AIDS, mental health diagnosis, sleep apnea, morbid obesity)? @ -Alcohol abuse, smoking Was patient admitted / discharged? @ -Discharged. Lab work fairly unremarkable. Elevated liver enzymes are stab le when compared with prior and related to patient's excessive alcohol use. Gallbladder ultrasound reveals hepatomegaly with fatty infiltration of the liver. No acute process was identified. Chest x-ray obtained as well, also revealing no acute findings. Symptoms well-controlled with Toradol, a lidocaine patch, Norflex. Given that the pain is reproducible and worse with movement, advised that this is likely musculoskeletal in nature. Prescription for ibuprofen, Robaxin, and lidocaine patches provided with dosing instructions reviewed. Patient discharged home in stable condition with strict return parameters and advised to follow-up with his primary care provider. Undiagnosed new problem with uncertain prognosis? @ -None Drug Therapy requiring intensive monitoring for toxicity (Heparin, Nitro, Insulin, Cardizem)? @ -None Were any procedures done? @ -None Diagnosis/symptom? @ -Abdominal pain, muscle strain Acute, or Chronic, or Acute on Chronic? @ -Acute Uncomplicated (without systemic symptoms) or Complicated (systemic symptoms)? @ -Uncomplicated Side effects of treatment? @ -None Exacerbation, Progression, or Severe Exacerbation] @ -Not applicable Poses a threat to life or bodily function? @ -No Return precautions reviewed in depth, the patient is instructed to return to the emergency department with any new, worsening, or concerning symptoms. Patient verbalized understanding. This case was discussed in detail with the attending ED physician, Dr. Dacosta. Presentation, findings, and treatment plan discussed in detail as well. - Lab Data Result diagrams: 09/22/23 15:37 09/22/23 15:37 Lab Results 09/22/23 09/22/23 09/22/23 Range/Units 15:37 15:37 15:37 WBC 8.1 (3.8-10.6) k/uL RBC 4.02 L (4.30-5.90) m/uL Hgb 16.0 (13.0-17.5) gm/dL Hct 47.2 (39.0-53.0) % MCV 117.6 H (80.0-100.0) fL MCH 39.8 H (25.0-35.0) pg MCHC 33.9 (31.0-37.0) g/dL RDW 13.9 (11.5-15.5) % Plt Count 153 (150-450) k/uL MPV 8.4 Neutrophils % 76 % Lymphocytes % 13 % Monocytes % 6 % Eosinophils % 2 % Basophils % 1 % Neutrophils # 6.2 (1.3-7.7) k/uL Lymphocytes # 1.1 (1.0-4.8) k/uL Monocytes # 0.5 (0-1.0) k/uL Eosinophils # 0.2 (0-0.7) k/uL Basophils # 0.1 (0-0.2) k/uL Manual Slide Review Performed Macrocytosis Marked A D-Dimer (<0.60) mg/L FEU Sodium 136 L (137-145) mmol/L Potassium 4.0 (3.5-5.1) mmol/L Chloride 102 (98-107) mmol/L Carbon Dioxide 25 (22-30) mmol/L Anion Gap 9 mmol/L BUN 6 L (9-20) mg/dL Creatinine 0.46 L (0.66-1.25) mg/dL Est GFR (CKD-EPI)AfAm >90 (>60 ml/min/1.73 sqM) Est GFR (CKD-EPI)NonAf >90 (>60 ml/min/1.73 sqM) Glucose 154 H (74-99) mg/dL Plasma Lactic Acid Raul 1.6 (0.7-2.0) mmol/L Calcium 9.3 (8.4-10.2) mg/dL Total Bilirubin 1.5 H (0.2-1.3) mg/dL AST 211 H (17-59) U/L ALT 68 H (4-49) U/L Alkaline Phosphatase 214 H (38-126) U/L Total Protein 7.7 (6.3-8.2) g/dL Albumin 4.3 (3.5-5.0) g/dL Amylase 50 (30-110) U/L Lipase 81 (23-300) U/L 09/22/23 Range/Units 15:37 WBC (3.8-10.6) k/uL RBC (4.30-5.90) m/uL Hgb (13.0-17.5) gm/dL Hct (39.0-53.0) % MCV (80.0-100.0) fL MCH (25.0-35.0) pg MCHC (31.0-37.0) g/dL RDW (11.5-15.5) % Plt Count (150-450) k/uL MPV Neutrophils % % Lymphocytes % % Monocytes % % Eosinophils % % Basophils % % Neutrophils # (1.3-7.7) k/uL Lymphocytes # (1.0-4.8) k/uL Monocytes # (0-1.0) k/uL Eosinophils # (0-0.7) k/uL Basophils # (0-0.2) k/uL Manual Slide Review Macrocytosis D-Dimer <0.17 (<0.60) mg/L FEU Sodium (137-145) mmol/L Potassium (3.5-5.1) mmol/L Chloride (98-107) mmol/L Carbon Dioxide (22-30) mmol/L Anion Gap mmol/L BUN (9-20) mg/dL Creatinine (0.66-1.25) mg/dL Est GFR (CKD-EPI)AfAm (>60 ml/min/1.73 sqM) Est GFR (CKD-EPI)NonAf (>60 ml/min/1.73 sqM) Glucose (74-99) mg/dL Plasma Lactic Acid Raul (0.7-2.0) mmol/L Calcium (8.4-10.2) mg/dL Total Bilirubin (0.2-1.3) mg/dL AST (17-59) U/L ALT (4-49) U/L Alkaline Phosphatase (38-126) U/L Total Protein (6.3-8.2) g/dL Albumin (3.5-5.0) g/dL Amylase (30-110) U/L Lipase (23-300) U/L - Radiology Data Radiology results: report reviewed, image reviewed Disposition Clinical Impression: Abdominal pain, Muscle strain, Nicotine dependence Disposition: HOME SELF-CARE Instructions (If sedation given, give patient instructions): Muscle Strain (ED), Abdominal Pain (ED) Additional Instructions: Return to the emergency department with any new, worsening, or concerning symptoms. Alternate with ibuprofen and Tylenol as needed for pain relief. You can take the Robaxin as 1 to 2 tablets up to 3-4 times daily. Be aware that this may make you drowsy. You can also apply the lidocaine patches daily. Follow-up with your primary care provider in 1 to 2 days. Prescriptions: Lidocaine 5% Patch [Lidoderm 5% Patch] 1 patch TOPICAL DAILY PRN #30 patch PRN Reason: Pain Ibuprofen [Motrin] 800 mg PO Q8H PRN #30 tab PRN Reason: Pain methocarbamoL [Robaxin-750] 1,500 mg PO TID PRN #30 tab PRN Reason: Pain Is patient prescribed a controlled substance at d/c from ED?: No Referrals: Gabe Flynn DO [Primary Care Provider] - 1-2 days Time of Disposition: 16:44
[2023-09-22 15:03] VITALS: RESP 18; TEMP 97.9
[2023-09-22] MEDS: LIDOCAINE 4% PATCH TOPICAL ONE (15:28)
[2023-09-22] MEDS: SODIUM CHLORIDE 0.9% 1,000 ML IV STA (15:28)
[2023-09-22] MEDS: KETOROLAC 15 MG/ML 1 ML VIAL IVP STA (15:28)
--- NOTE | 2023-09-22 15:29 | US ---
EXAMINATION TYPE: US gallbladder DATE OF EXAM: 09/22/2023 COMPARISON: 04/21/2023 CLINICAL INDICATION: Male, 33 years old with history of RUQ pain; TECHNIQUE: Multiple sonographic images of the right upper quadrant are obtained. FINDINGS: EXAM MEASUREMENTS: Liver Length: 25.6 cm Gallbladder Wall: 0.3 cm CBD: 0.4 cm Right Kidney: 12.2 x 4.1 x 4.3 cm PATROL OFFICER NOTES:*Limitations due to overlying bowel gas Pancreas: Obscured by bowel gas Liver: heterogeneous compatible with mild to moderate fatty infiltration., difficult to penetrate, e nlarged Gallbladder: no evidence of stones. The aldrich technically thickened although the appearance of the w all and imaging appears normal. No adjacent free fluid or wall echo shadow evident. Evidence for sonographic Johnston's sign: no CBD: limited evaluation Right Kidney: no evidence of hydronephrosis IMPRESSION: 1. Hepatomegaly with mild to moderate fatty infiltration of liver.
[2023-09-22 15:50] LABS: Basophils # (A) 0.1 k/uL (0-0.2); Basophils % (A) 1 %; Eosinophils # (A) 0.2 k/uL (0-0.7); Eosinophils % (A) 2 %; HCT 47.2 % (39.0-53.0); Lymphocytes # (A) 1.1 k/uL (1.0-4.8); Lymphocytes % (A) 13 %; MCH 39.8 pg (25.0-35.0); MCHC 33.9 g/dL (31.0-37.0); MCV 117.6 fL (80.0-100.0); Macrocytosis Marked; Mean Platelet Volume 8.4; Monocytes # (A) 0.5 k/uL (0-1.0); Monocytes % (A) 6 %; Neutrophils # (A) 6.2 k/uL (1.3-7.7); Neutrophils % (A) 76 %; Platelet Count 153 k/uL (150-450); RBC 4.02 m/uL (4.30-5.90); RDW 13.9 % (11.5-15.5); WBC 8.1 k/uL (3.8-10.6)
[2023-09-22 16:04] LABS: ALT 68 U/L (4-49); AST 211 U/L (17-59); African American GFR (CKD) >90 (>60 ml/min/1.73 sqM); Albumin 4.3 g/dL (3.5-5.0); Alkaline Phosphatase 214 U/L (38-126); Amylase 50 U/L (30-110); Anion Gap 9 mmol/L; Blood Urea Nitrogen 6 mg/dL (9-20); Calcium 9.3 mg/dL (8.4-10.2); Carbon Dioxide 25 mmol/L (22-30); Chloride 102 mmol/L (98-107); Glucose 154 mg/dL (74-99); Lipase 81 U/L (23-300); Non-African American GFR(CKD) >90 (>60 ml/min/1.73 sqM); Sodium 136 mmol/L (137-145); Total Bilirubin 1.5 mg/dL (0.2-1.3); Total Protein 7.7 g/dL (6.3-8.2)
[2023-09-22] MEDS: ORPHENADRINE 30 MG/ML 2 ML VIAL IVP STA (16:13)
--- NOTE | 2023-09-22 16:34 | XR ---
EXAMINATION TYPE: XR chest 2V DATE OF EXAM: 09/22/2023 COMPARISON: 06/06/2023 INDICATION: Right flank pain TECHNIQUE: Frontal and lateral views of the chest are obtained. FINDINGS: The heart size is normal. The pulmonary vasculature is normal. The lungs are clear. IMPRESSION: 1. No acute pulmonary process.
[2023-09-22 17:00] VITALS: BP 157/110; PULSE 92
== END 2023-09-22 16:53 | disposition home or self-care (01) ==
LOC: EC 14:19
DX: S39.011A Strain of muscle, fascia and tendon of abdomen, initial encounter (principal); K76.0 Fatty (change of) liver, not elsewhere classified; F17.210 Nicotine dependence, cigarettes, uncomplicated; F10.10 Alcohol abuse, uncomplicated; X58.XXXA Exposure to other specified factors, initial encounter
CPT/HCPCS: 36415; 85379; 80053; 82150; 83605; 83690; 85025; 71046; 76705; 99406; 99284; 96374; 96375; 96361; J2360; J1885

== ENCOUNTER 2023-09-26 18:25 | Inpatient (IN) | payer OTHER ==
--- NOTE | 2023-09-26 19:19 | XR ---
EXAMINATION TYPE: XR ribs RT w pa chest xray DATE OF EXAM: 09/26/2023 7:12 PM CLINICAL INDICATION:Male, 33 years old with history of pain, coughing felt SOB; [facility] COMPARISON: 06/06/2023 TECHNIQUE: XR ribs RT w pa chest xray; Frontal and oblique views of the ribs with frontal chest radio graph. FINDINGS: Remote right-sided rib injuries as seen on 06/06/2023 exam. No evidence of acute fracture. Overall, the lungs are clear. The cardiac silhouette is normal in size. The remaining osseous stru ctures are intact. IMPRESSION: Remote right rib injuries, No evidence for acute injury.
--- NOTE | 2023-09-26 19:23 | ED ---
Back Pain HPI - General Chief Complaint: Back Pain/Injury Stated Complaint: rt side pain Time Seen by Provider: 09/26/23 18:40 Source: patient, RN notes reviewed Limitations: no limitations - History of Present Illness Initial Comments: This is a 33-year-old male presents emergency department chief plaint of right- sided rib right upper quadrant pain. patient states that he was at work today he coughed and felt a "pop "on the right side of his chest. Patient has pain with pressure over the area that wraps around into the front of his chest into the right upper quadrant. He admits to RUQ abdominal pain. He denies shortness of breath, lightheadedness,, constipation. He also admits to chronic alcohol use. Patient states that he drinks about a pint and a half of liquor per day over the last month due to recent life stressors. Patient states that he has gone through alcohol withdrawal in the past, and states that he is trying to cut back on his drinking to negate the possibility of going through withdrawal. Patient also admits to occasional cocaine use, states that he has not used over the past few weeks. He denies tremors, hallucinations, nausea, vomiting. - Related Data Home Medications Medication Instructions Recorded Confirmed Ibuprofen [Motrin] 600 mg PO TID PRN 09/22/23 09/22/23 Pantoprazole [Protonix] 40 mg PO DAILY 09/22/23 09/22/23 methocarbamoL [Robaxin] 500 mg PO BID PRN 09/22/23 09/22/23 Previous Rx's Medication Instructions Recorded Ibuprofen [Motrin] 800 mg PO Q8H PRN #30 tab 09/22/23 Lidocaine 5% Patch [Lidoderm 5% 1 patch TOPICAL DAILY PRN #30 patch 09/22/23 Patch] methocarbamoL [Robaxin-750] 1,500 mg PO TID PRN #30 tab 09/22/23 Allergies Allergy/AdvReac Type Severity Reaction Status Date / Time No Known Allergies Allergy Verified 09/22/23 16:36 Review of Systems ROS Statement: Those systems with pertinent positive or pertinent negative responses have been documented in the HPI. ROS Other: All systems not noted in ROS Statement are negative. Past Medical History Past Medical History: Hypertension Additional Past Medical History / Comment(s): Nephrolithiasis, ETOH abuse with past withdrawal tremors, past alcoholic hepatitis/acute severe kidney injury/hyperphosphatemia/acute metabolic encephalopathy from renal failure. History of Any Multi-Drug Resistant Organisms: None Reported Past Surgical History: Tonsillectomy Past Anesthesia/Blood Transfusion Reactions: No Reported Reaction Past Psychological History: No Psychological Hx Reported Smoking Status: Current every day smoker Past Alcohol Use History: Abuse, Daily, Heavy Past Drug Use History: Cocaine, Marijuana - Past Family History Father Family Medical History: Myocardial Infarction ([place]) Mother Family Medical History: Hypertension Additional Family Medical History / Comment(s): heart stent General Exam Limitations: no limitations General appearance: alert, in no apparent distress, other Head exam: Present: atraumatic, normocephalic, normal inspection Eye exam: Present: normal appearance, PERRL, EOMI. Absent: scleral icterus, conjunctival injection, periorbital swelling ENT exam: Present: normal exam, mucous membranes moist Neck exam: Present: normal inspection. Absent: tenderness, meningismus, lymphadenopathy Respiratory exam: Present: normal lung sounds bilaterally, chest wall tenderness (right lateral ribs). Absent: respiratory distress, wheezes, rales, rhonchi, stridor Cardiovascular Exam: Present: regular rate, normal rhythm, normal heart sounds. Absent: systolic murmur, diastolic murmur, rubs, gallop, clicks GI/Abdominal exam: Present: soft, tenderness (RUQ), rebound, normal bowel sounds. Absent: guarding, rigid Extremities exam: Present: normal inspection, full ROM, normal capillary refill. Absent: tenderness, pedal edema, joint swelling, calf tenderness Back exam: Present: normal inspection Neurological exam: Present: alert, oriented X3, CN II-XII intact Psychiatric exam: Present: normal affect, normal mood Skin exam: Present: warm, dry, intact, normal color. Absent: rash Course Vital Signs 09/26/23 09/26/23 09/26/23 18:28 20:18 22:16 Temperature 97.5 F L Pulse Rate 95 106 H 64 Respiratory 20 18 18 Rate Blood Pressure 211/130 198/125 201/122 O2 Sat by Pulse 99 99 98 Oximetry 09/26/23 23:17 Temperature Pulse Rate 86 Respiratory 18 Rate Blood Pressure 179/115 O2 Sat by Pulse 99 Oximetry Medical Decision Making - Medical Decision Making Was pt. sent in by a medical professional or institution (, PA, DROP MAN, urgent care, hospital, or longterm...) When possible be specific @ -No Did you speak to anyone other than the patient for history (EMS, parent, family, police, friend...)? What history was obtained from this source @ -No Did you review nursing and triage notes (agree or disagree)? Why? @ -I reviewed and agree with nursing and triage notes Were old charts reviewed (outside hosp., previous admission, EMS record, old EKG, old radiological studies, urgent care reports/EKG's, longterm records)? Report findings @ -Previous emergency department visit reviewed. Ultrasound results revealed a technically thickened gallbladder ultrasound. Patient's laboratory results revealed elevated LFTs. Differential Diagnosis (chest pain, altered mental status, abdominal pain women, abdominal pain men, vaginal bleeding, weakness, fever, dyspnea, syncope, hea dache, dizziness, GI bleed, back pain, seizure, CVA, palpatations, mental health, musculoskeletal)? @ -Differential Abdominal Pain Men: Appendicitis, cholecystitis, diverticulosis, ischemic bowel, pancreatitis, hepatitis, UTI, gastroenteritis, AAA, incarcerated hernia, bowel obstruction, constipation, inflammatory bowel, hepatitis, peptic ulcer disease, splenic infarction, perforated viscus, testicular torsion, this is not meant to be an all-inclusive list EKG interpreted by me (3pts min.). @ -As above X-rays interpreted by me (1pt min.). @ -Patient chest and left ribs reveals no acute osseous abnormalities. CT interpreted by me (1pt min.). @ -abdomen/pelvis with contrast reveals a mild gallbladder wall thickening query increased density possibly representing biliary debris's, correlate with right upper quadrant ultrasound. Hepatic steatosis with a normal-appearing appendix. U/S interpreted by me (1pt. min.). @ -None done What testing was considered but not performed or refused? (CT, X-rays, U/S, labs)? Why? @ -None What meds were considered but not given or refused? Why? @ -None Did you discuss the management of the patient with other professionals (bruno plascencia iallyssa Frey, PA, DROP MAN, lab, RT, psych nurse, social work program coordinator, systems program manager, teacher, boat officer, pillowcase sewer)? Give summary @ -No Was smoking cessation discussed for >3mins.? @ -No Was critical care preformed (if so, how long)? @ -No Were there social determinants of health that impacted care today? How? (Homelessness, low income, unemployed, alcoholism, drug addiction, transportation, low edu. Level, literacy, decrease access to med. care, long term, rehab)? @ -No Was there de-escalation of care discussed even if they declined (Discuss DNR or withdrawal of care, Hospice)? DNR status @ -No What co-morbidities impacted this encounter? (DM, HTN, Smoking, COPD, CAD, Cancer, CVA, ARF, Chemo, Hep., AIDS, mental health diagnosis, sleep apnea, morbid obesity)? @ -alcohol abuse, drug abuse Was patient admitted / discharged? Hospital course, mention meds given and route, prescriptions, significant lab abnormalities, going to OR and other pertinent info. @ -Admitted. 33-year-old male with complaint of right upper quadrant and rib pain. Initially on discussion with the patient he states that he experienced a pop while coughing at work this afternoon and right-sided rib pain that was tender on the lateral side therefore basic radiographs were ordered which were negative. On reevaluation of the patient states that he has been experiencing right upper quadrant pain over the past week as well that is intermittent for 1 week extremitiessensation. At this time laboratory tests were ordered in addition to CT of the abdomen pelvis, given Toradol and Tylenol for pain relief. Patient also admits to alcohol abuse drinking about a pint and a half of alcohol per day over the past 1 to 2 months. Patient admits that he has gone through alcohol withdrawals in the past. Patient's laboratory results reveals a leukocytosis of 12.4 and neutrophils of 9.8. Patient's elevated liver trans aminases with an AST of 219 and ALT of 80 alk phos of 274. Patient's amylase and lipase not elevated. This time, I discussed with Dr. Zarate laboratory results and radiographic imaging, where it was recommended the patient follow-up outpatient with potentially be admitted for acute cholecystitis. I spoke with Dr. Landin, internal medicine, who is in agreement with admission of the patient for potential alcohol withdrawal. I also spoke with Dr. Hicks who agreed with the consult for the patient for cholecystitis. Patient was admitted to observation for potential alcohol withdrawal in addition to right upper quadrant pain and cholecystitis. Undiagnosed new problem with uncertain prognosis? @ -No Drug Therapy requiring intensive monitoring for toxicity (Heparin, Nitro, Insuli n, Cardizem)? @ -No Were any procedures done? @ -No Diagnosis/symptom? @ -Cholecystitis, alcohol abuse Acute, or Chronic, or Acute on Chronic? @ -Acute Uncomplicated (without systemic symptoms) or Complicated (systemic symptoms)? @ -Complicated Side effects of treatment? @ -No Exacerbation, Progression, or Severe Exacerbation? @ -No Poses a threat to life or bodily function? How? (Chest pain, [place], [place], pneumonia, PE, COPD, DKA, ARF, appy, cholecystitis, CVA, Diverticulitis, Homicidal, Suicidal, threat to staff... and all critical care pts) @ -Untreated alcohol withdrawal can lead to potential seizures and . - Lab Data Result diagrams: 09/26/23 19:56 09/26/23 19:56 Lab Results 09/26/23 09/26/23 Range/Units 19:56 19:56 WBC 12.4 H (3.8-10.6) k/uL RBC 4.00 L (4.30-5.90) m/uL Hgb 15.9 (13.0-17.5) gm/dL Hct 47.8 (39.0-53.0) % MCV 119.5 H (80.0-100.0) fL MCH 39.6 H (25.0-35.0) pg MCHC 33.2 (31.0-37.0) g/dL RDW 13.6 (11.5-15.5) % Plt Count 198 (150-450) k/uL MPV 8.0 Neutrophils % 79 % Lymphocytes % 12 % Monocytes % 5 % Eosinophils % 1 % Basophils % 1 % Neutrophils # 9.8 H (1.3-7.7) k/uL Lymphocytes # 1.5 (1.0-4.8) k/uL Monocytes # 0.6 (0-1.0) k/uL Eosinophils # 0.2 (0-0.7) k/uL Basophils # 0.1 (0-0.2) k/uL Manual Slide Review Performed Macrocytosis Marked A Sodium 139 (137-145) mmol/L Potassium 3.9 (3.5-5.1) mmol/L Chloride 100 (98-107) mmol/L Carbon Dioxide 26 (22-30) mmol/L Anion Gap 13 mmol/L BUN 6 L (9-20) mg/dL Creatinine 0.63 L (0.66-1.25) mg/dL Est GFR (CKD-EPI)AfAm >90 (>60 ml/min/1.73 sqM) Est GFR (CKD-EPI)NonAf >90 (>60 ml/min/1.73 sqM) Glucose 131 H (74-99) mg/dL Calcium 9.4 (8.4-10.2) mg/dL Total Bilirubin 1.3 (0.2-1.3) mg/dL AST 219 H (17-59) U/L ALT 80 H (4-49) U/L Alkaline Phosphatase 274 H (38-126) U/L Total Protein 8.5 H (6.3-8.2) g/dL Albumin 4.7 (3.5-5.0) g/dL Amylase 50 (30-110) U/L Lipase 67 (23-300) U/L Disposition Clinical Impression: Cholecystitis Disposition: ADMITTED IP TO THIS [facility] Condition: Fair Decision to Admit Reason: Admit from EC Decision Date: 09/27/23
[2023-09-26] MEDS: ACETAMINOPHEN TAB 500 MG TAB PO STA (19:31)
[2023-09-26] MEDS: KETOROLAC 15 MG/ML 1 ML VIAL IM STA (19:32)
[2023-09-26 20:10] LABS: Basophils # (A) 0.1 k/uL (0-0.2); Basophils % (A) 1 %; Eosinophils # (A) 0.2 k/uL (0-0.7); Eosinophils % (A) 1 %; HCT 47.8 % (39.0-53.0); HGB 15.9 gm/dL (13.0-17.5); Lymphocytes # (A) 1.5 k/uL (1.0-4.8); Lymphocytes % (A) 12 %; MCH 39.6 pg (25.0-35.0); MCHC 33.2 g/dL (31.0-37.0); MCV 119.5 fL (80.0-100.0); Macrocytosis Marked; Monocytes # (A) 0.6 k/uL (0-1.0); Monocytes % (A) 5 %; Neutrophils # (A) 9.8 k/uL (1.3-7.7); Neutrophils % (A) 79 %; Platelet Count 198 k/uL (150-450); RDW 13.6 % (11.5-15.5); WBC 12.4 k/uL (3.8-10.6)
[2023-09-26] MEDS: SODIUM CHLORIDE 0.9% 1,000 ML IV STA (20:17)
[2023-09-26 20:23] LABS: ALT 80 U/L (4-49); AST 219 U/L (17-59); African American GFR (CKD) >90 (>60 ml/min/1.73 sqM); Albumin 4.7 g/dL (3.5-5.0); Alkaline Phosphatase 274 U/L (38-126); Amylase 50 U/L (30-110); Anion Gap 13 mmol/L; Blood Urea Nitrogen 6 mg/dL (9-20); Calcium 9.4 mg/dL (8.4-10.2); Carbon Dioxide 26 mmol/L (22-30); Chloride 100 mmol/L (98-107); Glucose 131 mg/dL (74-99); Lipase 67 U/L (23-300); Non-African American GFR(CKD) >90 (>60 ml/min/1.73 sqM); Potassium 3.9 mmol/L (3.5-5.1); Sodium 139 mmol/L (137-145); Total Bilirubin 1.3 mg/dL (0.2-1.3); Total Protein 8.5 g/dL (6.3-8.2)
[2023-09-26] MEDS: HYDROmorphone 0.5 MG/0.5 ML SYRINGE IVP STA (20:37)
--- NOTE | 2023-09-26 20:47 | CT ---
EXAMINATION TYPE: CT abdomen pelvis w con CT DLP: 1375.8 mGycm, Automated exposure control for dose reduction was used. DATE OF EXAM: 09/26/2023 8:13 PM COMPARISON: 06/08/2023 , ultrasound 09/22/2023. CLINICAL INDICATION:Male, 33 years old with history of RUQ pain; RUQ abd pain. TECHNIQUE: Axial CT abdomen pelvis w con;Sagittal and coronal reformats were created on a separate w orkstation. Contrast used:100 mL of Isovue 300 with IV Contrast, (none if empty) Oral contrast used: without Oral Contrast (none if empty) FINDINGS: LOWER CHEST: Unremarkable ABDOMEN LIVER: Diffusely hypoattenuating parenchyma. GALLBLADDER AND BILE DUCTS: Mild wall thickening noted along the margin of the liver and/or perichole cystic fluid series 203 image 64. Layering high density noted in the gallbladder lumen. PANCREAS: Unremarkable. SPLEEN: Unremarkable. ADRENAL GLANDS: Unremarkable. KIDNEYS AND URETERS: No evidence of hydronephrosis or renal calculus. The ureters are unremarkable. PELVIS BLADDER: Unremarkable REPRODUCTIVE: Unremarkable. ABDOMEN & PELVIS STOMACH AND BOWEL: No evidence of bowel obstruction. The appendix is normal. PERITONEUM/RETROPERITONEUM: No evidence of pneumoperitoneum or free fluid. VASCULATURE: No evidence of aortic aneurysm. MUSCULOSKELETAL: No acute osseous abnormalities LYMPH NODES: No gross evidence for lymphadenopathy. SOFT TISSUE/ABDOMINAL WALL: Fat-containing umbilical hernia. Left fat-containing inguinal hernia. IMPRESSION: 1. Mild gallbladder wall thickening suggested with layering increased density possibly representing biliary debris. Correlate with right upper quadrant ultrasound. Correlate for acute cholecystitis 2. Hepatic steatosis. Normal-appearing appendix. No evidence for obstructive uropathy.
[2023-09-26] MEDS: LORazepam 2 MG/ML INJ IV STA (21:15)
[2023-09-26] MEDS ORDERED: NALOXONE 0.4 MG/ML 1 ML VIAL IV PRN (21:59)
[2023-09-26] MEDS ORDERED: LORazepam 0.5 MG TAB PO PRN (22:01)
[2023-09-26] MEDS ORDERED: LORazepam 2 MG/ML INJ IV PRN ×3 (22:01)
[2023-09-26] MEDS ORDERED: LORazepam 1 MG TAB PO PRN ×2 (22:01)
[2023-09-26] MEDS: NICOTINE 21MG/24HR PATCH TRANSDERM STA (22:12)
[2023-09-26] MEDS: THIAMINE 100 MG/ML 2 ML VIAL IM STA (22:13)
[2023-09-26] MEDS: hydrALAZINE HCL 20 MG/ML 1 ML VIAL IVP STA (22:25)
[2023-09-27] MEDS: HYDROmorphone 0.5 MG/0.5 ML SYRINGE IVP PRN (01:14)
[2023-09-27] MEDS: THIAMINE 100 MG TAB PO SCH (08:36)
--- NOTE | 2023-09-27 10:23 | P.GSCN ---
History of Present Illness Consult date: 09/27/23 History of present illness: CHIEF COMPLAINT: Abdominal pain HISTORY OF PRESENT ILLNESS: This is a 33-year-old male who presented with right upper quadrant abdominal pain. Patient also had reported to ER physician that he was at work and coughed and felt a pop on the right side of his chest. Patient admits to chronic alcohol use. His last drink was on Tuesday, 2 days ago patient also reports occasional cocaine use. But has not used any over the past few weeks. Patient denies any nausea or vomiting. Denies any fever chills or sweats. Denies any chest pain. He does have elevated liver enzymes. CT scan of the abdomen had reported mild gallbladder wall thickening and hepatic steatosis. Gallbladder ultrasound had reported hepatomegaly. Chest x-ray had reported a remote right rib injury. PAST MEDICAL HISTORY: See list. PAST SURGICAL HISTORY: See list. MEDICATIONS: See list. ALLERGIES: See list. SOCIAL HISTORY: Nicotine dependence. Daily alcohol use. Occasional cocaine use. Positive marijuana use REVIEW OF SYSTEMS: CONSTITUTIONAL: Denies fever or chills. HEENT: Denies blurred vision, vision changes, or eye pain. Denies hemoptysis ENDOCRINE: Denies heat or cold intolerance. CARDIOVASCULAR: Denies chest pain or pressure. RESPIRATORY: No shortness of breath. GASTROINTESTINAL: Please refer to HPI otherwise unremarkable NEURO: Denies history of seizures. PSYCH: No depression or suicidal ideation HEMATOLOGIC: Denies bleeding disorders. LYMPHATIC: The patient denies any lumps and bumps around the neck. GENITOURINARY: Denies any blood in urine or increased urinary frequency. MUSCULOSKELETAL: Denies myalgias. Denies joint swelling. Denies decreased range of motion beyond patients baseline. SKIN: Denies pruitis. Denies rash. PHYSICAL EXAM: VITAL SIGNS: Reviewed GENERAL: Well-developed in no acute distress. HEENT: No sclera icterus. Extraocular movements grossly intact. Moist buccal mucosa. Head is atraumatic, normocephalic. Hears conversational speech. No nasal drainage. NECK: Supple without lymphadenopathy. CHEST: Non-labored respirations and equal bilateral excursions. CARDIOVASCULAR: Palpable 2+ radial pulses. ABDOMEN: Soft. Nondistended. Tenderness to palpation right upper quadrant MUSCULOSKELETAL: No clubbing or cyanosis. NEUROLOGIC: No focal or lateralizing signs. Cranial nerves II through XII grossly intact. PSYCH: Appropriate affect. Alert and oriented to person, place and time. SKIN: Well perfused. Good skin turgor. LABORATORY DATA: WBC 12.4 Hgb 15.9 platelets 198 Sodium is 139 potassium 3.9 creatinine 0.63 Total bilirubin 1.3 AST 219 ALT 80 alk phos 274 lipase 67 IMAGING: Rib x-ray reports remote right rib injury. No evidence of acute injury. CT scan abdomen and pelvis reports mild gallbladder wall thickening suggesting with layering increased density possibly representing biliary debris. Correlate with right upper quadrant ultrasound. Correlate for acute cholecystitis. Hepatic steatosis. Normal-appearing appendix. No evidence for obstructive uropathy. Gallbladder ultrasound from 09/22/2023 reports hepatomegaly with mild to moderate fatty infiltration of liver ASSESSMENT: 1. Right upper quadrant abdominal pain. CT scan reporting mild gallbladder wall thickening and possible biliary debris 2. Hepatomegaly 3. Hepatic steatosis 4. Daily alcohol use 5. Elevated LFTs PLAN: -Patient scheduled for HIDA scan today for further evaluation of right upper quadrant abdominal pain -Start low-fat diet -Continue to monitor for alcohol withdrawal -Continue supportive care -Further recommendations forthcoming depending on HIDA scan results Physician Calender Operator note has been reviewed by physician. Signing provider agrees with the documented findings, assessment, and plan of care. Past Medical History Past Medical History: Hypertension Additional Past Medical History / Comment(s): Nephrolithiasis, ETOH abuse with past withdrawal tremors, past alcoholic hepatitis/acute severe kidney injur y/hyperphosphatemia/acute metabolic encephalopathy from renal failure. History of Any Multi-Drug Resistant Organisms: None Reported Past Surgical History: Tonsillectomy Past Anesthesia/Blood Transfusion Reactions: No Reported Reaction Past Psychological History: No Psychological Hx Reported Smoking Status: Current every day smoker Past Alcohol Use History: Abuse, Daily, Heavy Past Drug Use History: Cocaine, Marijuana - Past Family History Father Family Medical History: Myocardial Infarction ([place]) Mother Family Medical History: Hypertension Additional Family Medical History / Comment(s): heart stent Medications and Allergies Home Medications Medication Instructions Recorded Confirmed Type Ibuprofen [Motrin] 800 mg PO Q8H PRN #30 tab 09/22/23 09/27/23 Rx Lidocaine 5% Patch [Lidoderm 5% 1 patch TOPICAL DAILY PRN #30 patch 09/22/23 09/27/23 Rx Patch] Pantoprazole [Protonix] 40 mg PO DAILY 09/22/23 09/27/23 History methocarbamoL [Robaxin-750] 1,500 mg PO TID PRN #30 tab 09/22/23 09/27/23 Rx carvediloL [Coreg] 3.125 mg PO BID 09/27/23 09/27/23 History Allergies Allergy/AdvReac Type Severity Reaction Status Date / Time No Known Allergies Allergy Verified 09/27/23 07:57 Surgical - Exam Vital Signs Temp Pulse Resp BP Pulse Ox 97.5 F L 95 20 211/130 99 09/26/23 18:28 09/26/23 18:28 09/26/23 18:28 09/26/23 18:28 09/26/23 18:28 Results - Labs 09/26/23 19:56 09/26/23 19:56 Abnormal Lab Results - Last 24 Hours (Table) 09/26/23 09/26/23 Range/Units 19:56 19:56 WBC 12.4 H (3.8-10.6) k/uL RBC 4.00 L (4.30-5.90) m/uL MCV 119.5 H (80.0-100.0) fL MCH 39.6 H (25.0-35.0) pg Neutrophils # 9.8 H (1.3-7.7) k/uL Macrocytosis Marked A BUN 6 L (9-20) mg/dL Creatinine 0.63 L (0.66-1.25) mg/dL Glucose 131 H (74-99) mg/dL AST 219 H (17-59) U/L ALT 80 H (4-49) U/L Alkaline Phosphatase 274 H (38-126) U/L Total Protein 8.5 H (6.3-8.2) g/dL Diabetes panel 09/26/23 Range/Units 19:56 Sodium 139 (137-145) mmol/L Potassium 3.9 (3.5-5.1) mmol/L Chloride 100 (98-107) mmol/L Carbon Dioxide 26 (22-30) mmol/L BUN 6 L (9-20) mg/dL Creatinine 0.63 L (0.66-1.25) mg/dL Glucose 131 H (74-99) mg/dL Calcium 9.4 (8.4-10.2) mg/dL AST 219 H (17-59) U/L ALT 80 H (4-49) U/L Alkaline Phosphatase 274 H (38-126) U/L Total Protein 8.5 H (6.3-8.2) g/dL Albumin 4.7 (3.5-5.0) g/dL Calcium panel 09/26/23 Range/Units 19:56 Calcium 9.4 (8.4-10.2) mg/dL Albumin 4.7 (3.5-5.0) g/dL Pituitary panel 09/26/23 Range/Units 19:56 Sodium 139 (137-145) mmol/L Potassium 3.9 (3.5-5.1) mmol/L Chloride 100 (98-107) mmol/L Carbon Dioxide 26 (22-30) mmol/L BUN 6 L (9-20) mg/dL Creatinine 0.63 L (0.66-1.25) mg/dL Glucose 131 H (74-99) mg/dL Calcium 9.4 (8.4-10.2) mg/dL Adrenal panel 09/26/23 Range/Units 19:56 Sodium 139 (137-145) mmol/L Potassium 3.9 (3.5-5.1) mmol/L Chloride 100 (98-107) mmol/L Carbon Dioxide 26 (22-30) mmol/L BUN 6 L (9-20) mg/dL Creatinine 0.63 L (0.66-1.25) mg/dL Glucose 131 H (74-99) mg/dL Calcium 9.4 (8.4-10.2) mg/dL Total Bilirubin 1.3 (0.2-1.3) mg/dL AST 219 H (17-59) U/L ALT 80 H (4-49) U/L Alkaline Phosphatase 274 H (38-126) U/L Total Protein 8.5 H (6.3-8.2) g/dL Albumin 4.7 (3.5-5.0) g/dL
[2023-09-27] MEDS: KETOROLAC 15 MG/ML 1 ML VIAL IVP PRN (10:44)
[2023-09-27] MEDS ORDERED: methocarbamoL 750 MG TAB PO PRN (13:42)
[2023-09-27] MEDS ORDERED: LIDOCAINE 4% PATCH TOPICAL PRN (13:42)
--- NOTE | 2023-09-27 15:49 | NM ---
EXAMINATION TYPE: NM hepatobiliary w CCK DATE OF EXAM: 09/27/2023 COMPARISON: NONE INDICATION: Right upper quadrant pain TECHNIQUE: After the intravenous administration of 5.2 mCi Tc 99m Mebrofenin hepatobiliary scintigrap hy is performed. Images were obtained immediately post injection. FINDINGS: There is prompt uptake and excretion of radiotracer by the liver. Extrahepatic ducts are identified at 2 minutes. The gallbladder is visualized within 4 minutes. Small bowel activity is noted within 56 minutes. At one hour CCK was administered, patient was injected with 2 mcg of Kinevac, and gallbladder ejectio n fraction is calculated at 93 %, which is elevated. (Normal >35% and <80%.). IMPRESSION: 1. Correlate for biliary hyperkinesia.
[2023-09-27] MEDS: cloNIDine HCL 0.1 MG TAB PO SCH (16:04)
[2023-09-27] MEDS: HEPARIN SODIUM,PORCINE 5,000 UNIT/ML 1 ML VIAL SQ SCH (16:07)
[2023-09-27] MEDS: PANTOPRAZOLE 40 MG/10 ML VIAL IVP SCH (16:09)
--- NOTE | 2023-09-27 16:10 | XR ---
EXAMINATION TYPE: XR chest 1V portable DATE OF EXAM: 09/27/2023 COMPARISON: 09/26/2023 INDICATION: CHF TECHNIQUE: Single frontal view of the chest is obtained. FINDINGS: The heart size is normal. The pulmonary vasculature is normal. The lungs are clear. IMPRESSION: 1. No acute pulmonary process.
[2023-09-27] MEDS: SODIUM CHLORIDE 0.9% 1,000 ML IV SCH (16:12)
[2023-09-27] MEDS: LEVOFLOXACIN 750MG-D5W PMX 750 MG in DEXTROSE/WATER 1 150ML.BAG IVPB ONE (16:23)
[2023-09-27] MEDS: carvediloL 3.125 MG TAB PO SCH (17:54)
[2023-09-27] MEDS: LORazepam 1 MG TAB PO PRN (20:37)
[2023-09-27] MEDS: NICOTINE 21MG/24HR PATCH TRANSDERM SCH (20:38)
--- NOTE | 2023-09-28 00:09 | HP ---
HISTORY AND PHYSICAL CHIEF COMPLAINT: Severe abdominal pain, alcohol withdrawal. HISTORY OF PRESENT ILLNESS: This 33-year-old gentleman with a past medical history significant for alcohol. He is complaining of abdominal pain, which is in the right upper quadrant, also right side of the upper abdomen and also the back. The patient also had significant features of DTs. Evaluation showed evidence of possible cholecystitis and debris, and Surgery is following the patient closely. HIDA scan has been ordered. There is no history of any fever, rigors, or chills. The patient has elevated LFTs indicating alcoholic hepatitis also. PAST MEDICAL HISTORY: Reviewed, include hypertension, nephrolithiasis, ETOH abuse. Rest of the history and rest of the chart is also reviewed. HOME MEDICATIONS: Reviewed, include Coreg, dose and rest of medications noted. ALLERGIES: None. FAMILY HISTORY: History of CAD stent. SOCIAL HISTORY: History of alcohol. REVIEW OF SYSTEMS: Fourteen-point review is negative except as mentioned earlier. PHYSICAL EXAMINATION: VITAL SIGNS: Pulse is 75, blood pressure 160/90, respirations 18. HEENT: Conjunctivae normal. NECK: No JVD. CARDIOVASCULAR: S1, S2. RESPIRATIONS: Breath sounds diminished at the bases. Few scattered rhonchi. ABDOMEN: Soft. Mild diffuse distention and significant tenderness. No guarding. No rigidity on the right upper quadrant present. No mass palpable. No ascites. LEGS: No edema. No swelling. SKIN: No ulcer, rash, bleeding. JOINTS: No active deforming arthropathy. NERVOUS SYSTEM: Diffuse tremors. The patient is confused also. LABORATORY DATA: Reviewed. ASSESSMENT: 1. Acute alcohol withdrawal and acute delirium tremens. 2. Abdominal pain, possible acute cholecystitis. 3. Acute alcoholic hepatitis. 4. Elevated WBC. 5. History of hypertension. 6. Nephrolithiasis. 7. History of nicotine dependence. RECOMMENDATIONS AND DISCUSSION: This 33-year-old gentleman presented with multiple complex medical issues, we will monitor the patient closely. Continue the current medications and will follow closely with Surgery. I would recommend empiric antibiotics also. Obtain cultures and symptomatic treatment of pain. Overall prognosis guarded. The patient has a history of polysubstance abuse also. Further recommendations to follow. 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 MMODL / IJN: [id number] /
[2023-09-28] MEDS: cloNIDine HCL 0.1 MG TAB PO PRN (02:33)
[2023-09-28] MEDS ORDERED: NICOTINE 21MG/24HR PATCH TRANSDERM SCH (09:00)
--- NOTE | 2023-09-28 12:15 | PN ---
PROGRESS NOTE DATE OF SERVICE: 09/28/2023 SUBJECTIVE: This is a 33-year-old gentleman who was admitted with acute alcohol withdrawal symptoms, also had possibly acute cholecystitis. The HIDA scan showed biliary dyskinesia. No chest pain, no palpitation. Surgery is following the patient closely. OBJECTIVE: VITAL SIGNS: Pulse is 74, blood pressure 143/90, respirations 16. CHEST: Clear to auscultation. CARDIOVASCULAR: S1, S2. ABDOMEN: Soft, mild diffuse tenderness in the upper part of the abdomen. No guarding, no rigidity. Bowel sounds present. LABORATORY DATA: Not available. ASSESSMENT: 1. Acute alcohol withdrawals and acute delirium tremens. 2. Abdominal pain, possible acute cholecystitis and biliary dyskinesia in the HIDA scan. 3. Acute alcoholic hepatitis possibly. 4. Elevated WBC. 5. History of hypertension. 6. Nephrolithiasis history. 7. History of nicotine dependence. RECOMMENDATIONS: Recommended to continue current management, continue symptomatic treatment, repeat labs. Closely follow with surgery. Prognosis guarded. Further recommendations to follow. MMODL / IJN: [id number] /
[2023-09-28] MEDS: LEVOFLOXACIN 750MG-D5W PMX 750 MG in DEXTROSE/WATER 1 150ML.BAG IVPB SCH (15:07)
--- NOTE | 2023-09-28 15:10 | P.PN ---
Subjective Progress Note Date: 09/28/23 CHIEF COMPLAINT: Right upper quadrant abdominal pain HISTORY OF PRESENT ILLNESS: Patient continues to have right upper quadrant abdominal pain. Has been requiring pain medication. Had HIDA scan completed results reported a biliary hypokinesia with EF of 93%. Patient denies any nausea or vomiting. No repeat labs for today PHYSICAL EXAM: VITAL SIGNS: Reviewed GENERAL: Well-developed in no acute distress. HEENT: No sclera icterus. Extraocular movements grossly intact. Moist buccal mucosa. Head is atraumatic, normocephalic. Hears conversational speech. No nasal drainage. NECK: Supple without lymphadenopathy. CHEST: Non-labored respirations and equal bilateral excursions. CARDIOVASCULAR: Palpable 2+ radial pulses. ABDOMEN: Soft. Nondistended. Right upper quadrant tenderness with palpation MUSCULOSKELETAL: No clubbing or cyanosis. NEUROLOGIC: No focal or lateralizing signs. Cranial nerves II through XII grossly intact. PSYCH: Appropriate affect. Alert and oriented to person, place and time. SKIN: Well perfused. Good skin turgor. ASSESSMENT: 1. Right upper quadrant abdominal pain. CT scan reporting mild gallbladder wall thickening and possible biliary debris 2. Hyperkinetic gallbladder 3. Hepatomegaly 4. Hepatic steatosis 5. Daily alcohol use 6. Elevated LFTs PLAN: -Patient scheduled for robotic cholecystectomy tomorrow with Dr. Pinzon -N.p.o. after midnight -Low-fat diet for today -Continue antibiotics -Continue pain management Physician Sociocultural Anthropology Professor note has been reviewed by physician. Signing provider agrees with the documented findings, assessment, and plan of care. Objective - Vital Signs Vital signs: Vital Signs Temp 98.3 F 09/28/23 07:00 Pulse 74 09/28/23 07:00 Resp 16 09/28/23 07:00 BP 143/90 09/28/23 07:00 Pulse Ox 98 09/28/23 07:00 FiO2 Intake & Output 09/27/23 09/28/23 09/28/23 18:59 06:59 18:59 Weight 97.522 kg Other: Voiding Method Toilet - Labs CBC & Chem 7: 09/26/23 19:56 09/26/23 19:56
[2023-09-29] MEDS ORDERED: HYDROmorphone 0.5 MG/0.5 ML SYRINGE IVP PRN ×2 (07:00→15:49)
--- NOTE | 2023-09-29 08:42 | US ---
EXAMINATION TYPE: US gallbladder DATE OF EXAM: 09/29/2023 COMPARISON: NONE CLINICAL INDICATION: Male, 33 years old with history of Right upper quadrant pain; Cholecystectomy sc h. for later today, eval CBD per Dr. Pinzon TECHNIQUE: Multiple sonographic images of the right upper quadrant are obtained. FINDINGS: EXAM MEASUREMENTS: Liver Length: 24.4 cm Gallbladder Wall: 0.6 cm CBD: 0.5 cm Right Kidney: 10.0x4.7x5.4 cm WASH DRILLER HELPER NOTES: Pancreas: mostly obscured by bowel gas Liver: increased echogenicity, size, and attenuation Gallbladder: wall thickening Evidence for sonographic Johnston's sign: no CBD: wnl, as best visualized Right Kidney: No hydronephrosis or masses seen exam limited by bowel, attenuation from the liver, and body habitus IMPRESSION: 1. Limited exam, common bile duct within normal limits for size. 2. Hepatic steatosis.
[2023-09-29 09:09] LABS: ALT 49 U/L (10-49); AST 140 U/L (14-35); Albumin 3.8 g/dL (3.8-4.9); Albumin/Globulin Ratio 1.36 Ratio (1.60-3.17); Alkaline Phosphatase 199 U/L (41-126); Calcium 8.7 mg/dL (8.7-10.3); Carbon Dioxide 23.1 mmol/L (21.6-31.8); Chloride 100 mmol/L (96-109); Globulin 2.8 g/dL (1.6-3.3); Glucose 112 mg/dL (70-110); Potassium 3.7 mmol/L (3.5-5.5); Sodium 134 mmol/L (135-145); Total Bilirubin 1.2 mg/dL (0.3-1.2); Total Protein 6.6 g/dL (6.2-8.2)
[2023-09-29 09:23] LABS: Basophils # (M) 0.08 X 10*3/uL (0.00-0.10); Eosinophils # (M) 0 X 10*3/uL (0.04-0.35); HGB 14.2 g/dL (13.0-17.0); Lymphocytes # (M) 1.13 X 10*3/uL (0.90-5.00); MCH 40.8 pg (27.0-32.0); MCHC 34.6 g/dL (32.0-37.0); MCV 117.8 FL (80.0-97.0); Macrocytosis (M) 3+; Mean Platelet Volume 10.9 FL (9.5-12.2); Monocytes # (M) 0.32 X 10*3/uL (0.20-1.00); NRBC Per 100 WBC 0 X 10*3/uL (0.00-0.01); Neutrophils # (M) 6.51 X 10*3/uL (1.80-7.70); Neutrophils % (M) 81 %; Platelet Count 125 X 10*3/uL (140-440); RBC 3.48 X 10*6/uL (4.40-5.60); RDW 13.3 % (11.5-14.5); WBC 8.04 X 10*3/uL (4.50-10.00)
[2023-09-29] MEDS: LACTATED RINGERS 1,000 ML IV SCH ×2 (14:02→20:21)
[2023-09-29] MEDS: LACTATED RINGERS 1,000 ML IV ONE (16:05)
[2023-09-29] MEDS: hydrALAZINE HCL 20 MG/ML 1 ML VIAL IV ONE ×2 (16:30→16:37)
[2023-09-29] MEDS: DEXAMETHASONE SOD PHOSPHATE 4 MG/ML 1 ML VIAL IV ONE (16:43)
[2023-09-29] MEDS: ONDANSETRON 4 MG/2 ML VIAL IVP ONE (16:43)
[2023-09-29] MEDS ORDERED: SUGAMMADEX SODIUM 200 MG/2 ML SDV IV ONE (17:31)
[2023-09-29] MEDS ORDERED: MIDAZOLAM 2 MG/2 ML VIAL ONE (17:31)
[2023-09-29] MEDS ORDERED: GLYCOPYRROLATE 0.2 MG/ML 2 ML VIAL ONE (17:31)
[2023-09-29] MEDS ORDERED: fentaNYL (PF) 50 MCG/ML 2 ML AMP ONE (17:31)
[2023-09-29] MEDS ORDERED: LIDOCAINE 1% INJ 10MG/ML (20 ML MDV) ONE (17:31)
[2023-09-29] MEDS ORDERED: PROPOFOL 10 MG/ML 20 ML VIAL IV ONE (17:31)
[2023-09-29] MEDS ORDERED: SUCCINYLCHOLINE CHLORIDE 200 MG/10 ML VIAL IV ONE (17:31)
[2023-09-29] MEDS ORDERED: NEOSTIGMINE 1 MG/ML 10 ML VIAL ONE (17:31)
[2023-09-29] MEDS ORDERED: HYDROmorphone (PF) 1 MG/ML ONE (17:31)
[2023-09-29] MEDS ORDERED: ROCURONIUM 10 MG/ML (5 ML VIAL) IV ONE (17:31)
[2023-09-29] MEDS ORDERED: ceFAZolin 1 GM/50 ML BAG (PMX) ONE (17:31)
[2023-09-29] MEDS: LIDOCAINE 1%-EPI 1:100,000 20 ML VIAL SQ ONE ×2 (17:41→17:56)
[2023-09-29] MEDS ORDERED: ONDANSETRON 4 MG/2 ML VIAL IVP PRN (19:14)
[2023-09-29] MEDS ORDERED: METOCLOPRAMIDE 5 MG/ML 2 ML VIAL IVP PRN (19:14)
--- NOTE | 2023-09-29 19:23 | P.OP ---
Date of Procedure: 09/29/23 Description of Procedure: SURGEON: TONYA CLEMENTE MD PREOPERATIVE DIAGNOSES: 1. Acute cholecystitis with severe right upper quadrant abdominal pain 2. Hypertensive heart disease 3. Gastroesophageal reflux disease 4. Alcohol abuse disorder 5. Tobacco abuse disorder 6. History of renal failure 7. Marijuana use 8. Past history of cocaine use 9. Biliary hyperkinesia POSTOPERATIVE DIAGNOSES: 1. Acute cholecystitis 2. Hypertensive heart disease 3. Gastroesophageal reflux disease 4. Alcohol abuse disorder 5. Tobacco abuse disorder 6. History of renal failure 7. Marijuana use 8. Past history of cocaine use 9. Biliary hyperkinesia 10. Severe hepatomegaly from fatty liver disease, alcohol abuse 11. Micronodular cirrhosis OPERATION: Robotic-assisted da Asad Xi laparoscopic cholecystectomy, multiport with FIREFLY ESTIMATED BLOOD LOSS: 10 mL. SPECIMENS REMOVED: Gallbladder. COMPLICATIONS: None. OPERATIVE FINDINGS: 1. Severe hepatomegaly with fatty liver disease due to alcohol abuse 2. Micronodular liver cirrhosis INDICATIONS: The patient is a 33-year-old male who presents with intractable right upper quadrant abdominal pain including acute cholecystitis. Robotic assisted laparoscopic approach was described. Benefits and risks of the procedure including but not limited to bleeding, infection, injury to the biliary tree was described. Informed consent was obtained. DESCRIPTION OF PROCEDURE: Patient was brought to the operating room, placed in supine position. After general induction, the abdomen had been prepped and draped in standard sterile fashion. The robotic da Asad XI system was primed. After a timeout protocol was performed, the patient had been prepped and draped in standard sterile fashion. The patient was injected with indocyanine green. A 5 mm 0 degrees laparoscopic trocar entry was performed along the left upper q uadrant. The abdomen insufflated to 15 mmHg pressure which was tolerated well. Diagnostic laparoscopy demonstrated no injury to bowel viscera or mesentery. Severe fatty liver disease and hepatomegaly was identified adding complexity to the case. Next, two 8 mm robotic ports were placed along the right upper abdomen. The camera 8-mm port was maintained along the epigastrium. Another 8 mm port was placed along the left upper abdominal wall after exchanging the 5 mm port. Please note that the ports were placed at least 10 to 15 cm away from the target anatomy of the gallbladder. The robot was docked along the left lateral abdomen. The patient was repositioned in reverse Trendelenburg position. Using a grasper for arm 3, a grasper for arm 4, including hook cautery for arm 1, the robotic system was docked and primed as described. Instruments were interchanged by the psychological assistant including hook cautery, Bovie cautery and clip appliers. I had sat at the console. Due to the extremely large size of the liver completely collapsing gallbladder, dome down technique was performed. Trocars were adjusted due to the midline nature of the gallbladder. Gallbladder was from the fundus towards the infundibulum along the liver bed. Hemostasis was excellent. Next attention was brought to the infundibulum and cystic structures. The infundibulum and cystic duct were dissected free from surrounding tissues. The cystic duct was isolated. FIREFLY was used to identify the cystic artery and cystic structures. A critical view of safety was obtained. Large PLASTIC clips were used throughout the entire case. Using a clip physical education specialist, 2 clips were placed at the junction of the infundibulum and cystic duct. The cystic duct was divided between clips. Next, the cystic artery was similarly clipped and cauterized. Electro-Bovie cautery was used to remove the gallbladder from the hepatic fossa. Hemostasis was checked and found to be adequate. The robot was undocked. I re-scrubbed into the case. Using a 10 mm Endo Catch bag via the left upper quadrant incision, the specimen was removed from the abdominal cavity. All pneumoperitoneum instruments were evacuated from the abdominal cavity. The incisions were reapproximated using 4-0 Monocryl in an interrupted subcuticular fashion. Fascial defects were less than 8 mm in size. Please note along the trocar sites, local anesthetic was placed as a field block prior to insertion of all instruments. Liquid glue was applied to the skin. At the end of the procedure needle, sponge, and instrument count had been verified correct by the surgical services coordinator. The patient was transferred to postanesthesia care unit in stable condition. Intraoperative films were shared with the patient's family.
[2023-09-29] MEDS: INDOCYANINE GREEN 25 MG VIAL IV ONE (20:21)
--- NOTE | 2023-09-29 21:45 | PN ---
PROGRESS NOTE DATE OF SERVICE: 09/29/2023 SUBJECTIVE: This is a 33-year-old gentleman who was admitted with acute alcohol intoxication, is being closely monitored at this time. Surgery is following the patient closely. Gallbladder ultrasound showed hepatic steatosis. No chest pain, no palpitation. OBJECTIVE: VITAL SIGNS: Pulse is 72, blood pressure 130/86, respirations 14. CHEST: Clear to auscultation. CARDIOVASCULAR: S1, S2. ABDOMEN: Soft, minimal tenderness. NERVOUS SYSTEM: Nonfocal. LABS: Improving. ASSESSMENT: 1. Acute alcohol withdrawal and acute delirium tremens. 2. Abdominal pain, possibly acute cholecystitis and biliary dyskinesia on HIDA scan. 3. Acute alcoholic hepatitis possibly. 4. Increased WBC. 5. Hypertension. 6. Nephrolithiasis. RECOMMENDATIONS AND DISCUSSION: Recommended to continue current medications, continue symptomatic treatment. Otherwise, repeat labs. Closely follow with surgery. Symptomatic treatment. Guarded prognosis. Further recommendations to follow. MMSATYAL / RAYMONDN: [id number] /
[2023-09-30] MEDS: HYDROcodone/APAP 5-325MG 1 EACH TAB PO PRN (05:53)
[2023-09-30 08:28] VITALS: BP 117/76; PULSE 64; RESP 18; TEMP 97.9
[2023-09-30 08:31] LABS: Basophils # (A) 0.02 X 10*3/uL (0.00-0.10); Basophils % (A) 0.2 %; Eosinophils # (A) 0.01 X 10*3/uL (0.04-0.35); Eosinophils % (A) 0.1 %; HCT 43.2 % (39.6-50.0); HGB 14.6 g/dL (13.0-17.0); Lymphocytes % (A) 10.9 %; MCH 39.8 pg (27.0-32.0); MCHC 33.8 g/dL (32.0-37.0); MCV 117.7 FL (80.0-97.0); Mean Platelet Volume 10.8 FL (9.5-12.2); Monocytes # (A) 0.65 X 10*3/uL (0.20-1.00); Monocytes % (A) 6.4 %; NRBC Per 100 WBC 0 X 10*3/uL (0.00-0.01); Neutrophils # (A) 8.24 X 10*3/uL (1.80-7.70); Neutrophils % (A) 81.8 %; Platelet Count 153 X 10*3/uL (140-440); RBC 3.67 X 10*6/uL (4.40-5.60); RDW 13.3 % (11.5-14.5); WBC 10.08 X 10*3/uL (4.50-10.00)
[2023-09-30 09:01] LABS: ALT 56 U/L (10-49); AST 181 U/L (14-35); Albumin/Globulin Ratio 1.33 Ratio (1.60-3.17); Alkaline Phosphatase 202 U/L (41-126); BUN/Creat Ratio 12.71 Ratio (12.00-20.00); Blood Urea Nitrogen 8.9 mg/dL (9.0-27.0); Calcium 9.2 mg/dL (8.7-10.3); Carbon Dioxide 22.6 mmol/L (21.6-31.8); Chloride 97 mmol/L (96-109); Glucose 115 mg/dL (70-110); Potassium 4.6 mmol/L (3.5-5.5); Sodium 133 mmol/L (135-145); Total Bilirubin 1.1 mg/dL (0.3-1.2)
--- NOTE | 2023-09-30 10:31 | P.PN ---
Subjective Progress Note Date: 09/30/23 CHIEF COMPLAINT: Right upper quadrant abdominal pain HISTORY OF PRESENT ILLNESS: Patient postop day #1 status post robotic cholecystectomy. Patient reports his pain is controlled. Pain mostly at the incision sites. He is having flatus. He has ambulated. Afebrile. He is just starting to eat breakfast. Afebrile. WBC 10.08 total bilirubin 1.1 AST 181 ALT 56 alk phos 202 PHYSICAL EXAM: VITAL SIGNS: Reviewed GENERAL: Well-developed in no acute distress. HEENT: No sclera icterus. Extraocular movements grossly intact. Moist buccal mucosa. Head is atraumatic, normocephalic. Hears conversational speech. No nasal drainage. NECK: Supple without lymphadenopathy. CHEST: Non-labored respirations and equal bilateral excursions. CARDIOVASCULAR: Palpable 2+ radial pulses. ABDOMEN: Soft. Nondistended. Incision sites clean dry and intact MUSCULOSKELETAL: No clubbing or cyanosis. NEUROLOGIC: No focal or lateralizing signs. Cranial nerves II through XII grossly intact. PSYCH: Appropriate affect. Alert and oriented to person, place and time. SKIN: Well perfused. Good skin turgor. ASSESSMENT: 1. Acute cholecystitis 2. Hypertensive heart disease 3. Gastroesophageal reflux disease 4. Alcohol abuse disorder 5. Tobacco abuse disorder 6. History of renal failure 7. Marijuana use 8. Past history of cocaine use 9. Biliary hyperkinesia 10. Severe hepatomegaly from fatty liver disease, alcohol abuse 11. Micronodular cirrhosis PLAN: -Patient can be discharged from surgical standpoint if tolerates breakfast -Educated patient on abstaining from alcohol -Continue low-fat diet -Continue pain management Physician Senior Strategy Manager note has been reviewed by physician. Signing provider agrees with the documented findings, assessment, and plan of care. Objective - Vital Signs Vital signs: Vital Signs Temp 97.9 F 09/30/23 07:35 Pulse 64 09/30/23 07:35 Resp 18 09/30/23 07:35 BP 117/76 09/30/23 07:35 Pulse Ox 100 09/30/23 07:35 FiO2 Intake & Output 09/29/23 09/30/23 09/30/23 18:59 06:59 18:59 Intake Total 1850 200 Output Total 5 Balance 1845 200 Intake: IV 1100 200 Intake, IV Titration 750 Amount Levofloxacin 750Mg-D5w 150 Pmx 750 mg In Dextrose/ Water 1 150ml.bag @ 100 mls/hr IVPB Q24H BREN Rx#: [id number] Sodium Chloride 0.9% 1, 600 000 ml @ 75 mls/hr IV . [id number] BREN Rx#:[id number] Output: Estimated Blood Loss 5 Other: Voiding Method Toilet # Voids 1 - Labs CBC & Chem 7: 09/30/23 03:58 09/30/23 03:58 Labs: Abnormal Lab Results - Last 24 Hours (Table) 09/30/23 09/30/23 Range/Units 03:58 03:58 WBC 10.08 H (4.50-10.00) X 10*3/uL RBC 3.67 L (4.40-5.60) X 10*6/uL MCV 117.7 H (80.0-97.0) FL MCH 39.8 H (27.0-32.0) pg Immature Gran # 0.06 H (0.00-0.04) X 10*3/uL Neutrophils # 8.24 H (1.80-7.70) X 10*3/uL Eosinophils # 0.01 L (0.04-0.35) X 10*3/uL Sodium 133 L (135-145) mmol/L Anion Gap 13.40 H (4.00-12.00) mmol/L BUN 8.9 L (9.0-27.0) mg/dL Glucose 115 H (70-110) mg/dL AST 181 H (14-35) U/L ALT 56 H (10-49) U/L Alkaline Phosphatase 202 H (41-126) U/L Albumin/Globulin Ratio 1.33 L (1.60-3.17) Ratio Microbiology - Last 24 Hours (Table) 09/27/23 15:59 Blood Culture - Preliminary Blood
--- NOTE | 2023-10-06 07:00 | P.DS ---
Providers Date of admission: 09/26/23 22:10 Expected date of discharge: 09/30/23 Attending physician: Agapito Nagy MD Consults: 09/26/23 21:59 Consult Physician Stat Consulting Provider: Caitlin Pinzon Consult Reason/Comments: cholecystitis Do you want consulting provider notified?: Already Contacted Primary care physician: Gabe Flynn Hospital Course: Final diagnosis Abdominal pain, acute cholecystitis with biliary dyskinesia on HIDA scan, status post laparoscopic cholecystectomy Leukocytosis likely secondary to above, improved Acute alcohol withdrawal and acute delirium tremens History of hypertension Nephrolithiasis history Acute alcoholic hepatitis Continued ongoing alcohol abuse GI prophylaxis DVT prophylaxis Full code Discharge disposition Patient is being discharged in a stable condition with guarded prognosis to home. Patient will follow-up with Dr. Flynn in the outpatient setting upon discharge. Patient is to continue with oral Levaquin and close outpatient follow-up with general surgery as scheduled. Total time taken is greater than 35 minutes. Hospital course This is a 33-year-old male who was recently admitted with acute alcohol intoxication with acute abdominal pain with concerns of acute cholecystitis with noted biliary dyskinesia on the HIDA scan. Patient evaluated by general surgery and is status post laparoscopic cholecystectomy. Patient is improving and will continue on oral antibiotics in the form of Levaquin and outpatient follow-up. Patient has been cleared by consultation. Please refer to general surgery c onsultation for further HPI. Patient has been extensively counseled on alcohol cessation and strongly recommend inpatient alcohol rehab. Mother at bedside. Currently no reports of chest pain, shortness of breath, or palpitations. Patient is afebrile. No reports of nausea or vomiting and patient is tolerating diet. Patient will be discharged home today. Guarded prognosis and high risk for readmissions given patient's noncompliance and continued alcohol abuse. Physical exam: Gen: This is a 33-year-old male who is awake, alert and oriented x 3, well- developed, well-nourished, unkept HEENT: Head is atraumatic, normocephalic. Pupils equal, round. Sclerae is anicteric. NECK: Supple. No JVD. No lymphadenopathy. No thyromegaly. LUNGS: Diminished breath sounds bilaterally otherwise clear to auscultation. No wheezes or rhonchi. No intercostal retractions. HEART: Regular rate and rhythm. No murmur. ABDOMEN: Soft. Bowel sounds are present. No masses. Mild tenderness noted at the surgical sites. EXTREMITIES: No pedal edema. No calf tenderness. NEUROLOGICAL: Patient is awake, alert and oriented x3. Cranial nerves 2 through 12 are grossly intact. Please refer to medication reconciliation sheet for a list of medications. The impression and plan of care has been dictated by Yuli Willingham, Nurse Practitioner as directed. Dr. Wai MD I have performed a history and examination and MDM of this patient, discussed the same with the dictator, and agree with the dictator's assessment and plan as written ,documented as a scribe. Based on total visit time, I have performed more than 50% of the visit. Patient Condition at Discharge: Fair Plan - Discharge Summary New Discharge Prescriptions: New Levofloxacin [Levaquin] 500 mg PO DAILY 5 Days #5 tab Thiamine [Vitamin B-1] 100 mg PO DAILY #30 tab cloNIDine HCL [Catapres] 0.1 mg PO BID #60 tab Nicotine 21Mg/24Hr Patch [Habitrol] 1 patch TRANSDERM DAILY patch Continue Lidocaine 5% Patch [Lidoderm 5% Patch] 1 patch TOPICAL DAILY PRN #30 patch PRN Reason: Pain methocarbamoL [Robaxin-750] 1,500 mg PO TID PRN #30 tab PRN Reason: Pain carvediloL [Coreg] 3.125 mg PO BID Pantoprazole [Protonix] 40 mg PO DAILY Ibuprofen [Motrin] 800 mg PO Q8H PRN #20 tab PRN Reason: Pain No Action Amoxic-Pot Clav 875-125Mg [Augmentin 875-125] 1 tab PO Q12HR #20 tab Discharge Medication List Lidocaine 5% Patch [Lidoderm 5% Patch] 1 patch TOPICAL DAILY PRN #30 patch 09/22/23 [Rx] Pantoprazole [Protonix] 40 mg PO DAILY 09/22/23 [History] methocarbamoL [Robaxin-750] 1,500 mg PO TID PRN #30 tab 09/22/23 [Rx] carvediloL [Coreg] 3.125 mg PO BID 09/27/23 [History] Ibuprofen [Motrin] 800 mg PO Q8H PRN #20 tab 09/30/23 [Rx] Levofloxacin [Levaquin] 500 mg PO DAILY 5 Days #5 tab 09/30/23 [Rx] Nicotine 21Mg/24Hr Patch [Habitrol] 1 patch TRANSDERM DAILY patch 09/30/23 [Rx] Thiamine [Vitamin B-1] 100 mg PO DAILY #30 tab 09/30/23 [Rx] cloNIDine HCL [Catapres] 0.1 mg PO BID #60 tab 09/30/23 [Rx] Amoxic-Pot Clav 875-125Mg [Augmentin 875-125] 1 tab PO Q12HR #20 tab 10/05/23 [Rx] Follow up Appointment(s)/Referral(s): Caitlin Pinzon MD [STAFF PHYSICIAN] - 10/04/23 Gabe Flynn DO [Primary Care Provider] - 1-2 days Patient Instructions/Handouts: Laparoscopic Cholecystectomy (DC) Activity/Diet/Wound Care/Special Instructions: activity limited until follow up follow up with pcp on discharge follow up with surgery in one week continue low fiber diet and advance slowly over the next few days avoid alcohol Discharge/Stand Alone Forms: AA Meetings [facility], AA Meetings [facility], Who Do I Call?, Community Resources, Outpatient Counseling, Inp Substance Abuse Facilities Discharge Disposition: HOME SELF-CARE
== END 2023-09-30 13:16 | disposition home or self-care (01) | DRG 263 ==
LOC: EC 18:25 → 6NMEDSUR 22:09 → OBSVTOIN 22:10 → 6NMEDSUR 09-27 07:45
PROVIDERS: ADMIT Internal Medicine; ATTEND Internal Medicine
PROC: 0FT44ZZ Resection of Gallbladder, Percutaneous Endoscopic Approach (ICD-10-PCS; principal; 2023-09-29 09:15)
PROC: 8E0W4CZ Robotic Assisted Procedure of Trunk Region, Percutaneous Endoscopic Approach (ICD-10-PCS; principal; 2023-09-29 09:15)
DX: K81.0 Acute cholecystitis (principal); F10.231 Alcohol dependence with withdrawal delirium; F17.200 Nicotine dependence, unspecified, uncomplicated; I11.9 Hypertensive heart disease without heart failure; K21.9 Gastro-esophageal reflux disease without esophagitis; K70.10 Alcoholic hepatitis without ascites; K74.69 Other cirrhosis of liver; K76.0 Fatty (change of) liver, not elsewhere classified; K82.8 Other specified diseases of gallbladder; N20.0 Calculus of kidney; Z79.899 Other long term (current) drug therapy; Z82.49 Family history of ischemic heart disease and other diseases of the circulatory system; Z87.442 Personal history of urinary calculi
CPT/HCPCS: 36415; 71045; 74177; 76705; 78227; 80053; 82150; 83690; 85025; 87040; 88304; 96361; 96365; 96372; 96375; 96376; 99285

== ENCOUNTER 2023-10-04 22:08 | Emergency (ER) | payer OTHER ==
--- NOTE | 2023-10-04 23:20 | ED ---
General Adult HPI - General Chief complaint: Urogenital Stated complaint: genital swelling Time Seen by Provider: 10/04/23 22:29 Source: patient Mode of arrival: wheelchair Limitations: no limitations - History of Present Illness Initial comments: 33-year-old male presented to the ED with a chief complaint of scrotal swelling. Patient states he was "just sitting there" and he noticed that his scrotum was more swollen than usual. Denies pain of this. No fever or chills. No chest pain shortness of breath. No problems with bowel or bladder habits. Denies urethral discharge. Denies concern for STD. No other complaints at this time Of note, on the counter there are 2 bags of edible THC Gummies which are emptied. - Related Data Home Medications Medication Instructions Recorded Confirmed Pantoprazole [Protonix] 40 mg PO DAILY 09/22/23 09/27/23 carvediloL [Coreg] 3.125 mg PO BID 09/27/23 09/27/23 Previous Rx's Medication Instructions Recorded Lidocaine 5% Patch [Lidoderm 5% 1 patch TOPICAL DAILY PRN #30 patch 09/22/23 Patch] methocarbamoL [Robaxin-750] 1,500 mg PO TID PRN #30 tab 09/22/23 Ibuprofen [Motrin] 800 mg PO Q8H PRN #20 tab 09/30/23 Levofloxacin [Levaquin] 500 mg PO DAILY 5 Days #5 tab 09/30/23 Nicotine 21Mg/24Hr Patch [Habitrol] 1 patch TRANSDERM DAILY patch 09/30/23 Thiamine [Vitamin B-1] 100 mg PO DAILY #30 tab 09/30/23 cloNIDine HCL [Catapres] 0.1 mg PO BID #60 tab 09/30/23 Amoxic-Pot Clav 875-125Mg 1 tab PO Q12HR #20 tab 10/05/23 [Augmentin 875-125] Allergies Allergy/AdvReac Type Severity Reaction Status Date / Time No Known Allergies Allergy Verified 10/04/23 22:20 Review of Systems ROS Statement: Those systems with pertinent positive or pertinent negative responses have been documented in the HPI. ROS Other: All systems not noted in ROS Statement are negative. Past Medical History Past Medical History: Hypertension Additional Past Medical History / Comment(s): Nephrolithiasis, ETOH abuse with past withdrawal tremors, past alcoholic hepatitis/acute severe kidney injury/hyperphosphatemia/acute metabolic encephalopathy from renal failure. History of Any Multi-Drug Resistant Organisms: None Reported Past Surgical History: Cholecystectomy, Tonsillectomy Past Anesthesia/Blood Transfusion Reactions: No Reported Reaction Past Psychological History: No Psychological Hx Reported Smoking Status: Current every day smoker Past Alcohol Use History: Abuse, Daily, Heavy Past Drug Use History: Cocaine, Marijuana - Past Family History Father Family Medical History: Myocardial Infarction (MA) Mother Family Medical History: Hypertension Additional Family Medical History / Comment(s): heart stent General Exam Limitations: no limitations General appearance: alert, in no apparent distress Eye exam: Present: normal appearance Neck exam: Present: normal inspection Respiratory exam: Present: normal lung sounds bilaterally Cardiovascular Exam: Present: regular rate GI/Abdominal exam: Present: soft exam: Present: other (Masseteric reflex intact bilaterally. Minimal swelling of the scrotum bilaterally. No tenderness to palpation.) Neurological exam: Present: alert, oriented X3 Skin exam: Present: warm, dry Course Vital Signs 10/04/23 10/05/23 22:18 01:31 Temperature 98.8 F 99.0 F Pulse Rate 148 H 94 Respiratory 22 16 Rate Blood Pressure 169/100 142/91 O2 Sat by Pulse 97 94 L Oximetry Medical Decision Making - Medical Decision Making Was pt. sent in by a medical professional or institution ([facility] Frey, IMPORT/EXPORT SPECIALIST, urgent care, hospital, or fdc...) When possible be specific @ -No Did you speak to anyone other than the patient for history (EMS, parent, family, police, friend...)? What history was obtained from this source @ -No Did you review nursing and triage notes (agree or disagree)? Why? @ -I reviewed and agree with nursing and triage notes Were old charts reviewed (outside hosp., previous admission, EMS record, old EKG, old radiological studies, urgent care reports/EKG's, fdc records)? Report findings @ -No old charts were reviewed Differential Diagnosis (chest pain, altered mental status, abdominal pain women, abdominal pain men, vaginal bleeding, weakness, fever, dyspnea, syncope, headache, dizziness, GI bleed, back pain, seizure, CVA, palpatations, mental health, musculoskeletal)? @ -Differential Abdominal Pain Men: Appendicitis, cholecystitis, diverticulosis, ischemic bowel, pancreatitis, hepatitis, UTI, gastroenteritis, AAA, incarcerated hernia, bowel obstruction, constipation, inflammatory bowel, hepatitis, peptic ulcer disease, splenic infarction, perforated viscus, testicular torsion, this is not meant to be an all-inclusive list EKG interpreted by me (3pts min.). @ -None X-rays interpreted by me (1pt min.). @ -None done CT interpreted by me (1pt min.). @ -None done U/S interpreted by me (1pt. min.). @ -Ultrasound interpreted me which shows diffuse scrotal wall edema within the scrotum without loculated fluid collection. No evidence of mass or torsion. What testing was considered but not performed or refused? (CT, X-rays, U/S, labs)? Why? @ -None What meds were considered but not given or refused? Why? @ -None Did you discuss the management of the patient with other professionals (professionals i.e. , PA, IMPORT/EXPORT SPECIALIST, lab, RT, psych nurse, addiction social worker, knot tier, teacher, protection officer, rn case manager hospice)? Give summary @ -No Was smoking cessation discussed for >3mins.? @ -No Was critical care preformed (if so, how long)? @ -No Were there social determinants of health that impacted care today? How? (Homelessness, low income, unemployed, alcoholism, drug addiction, transportation, low edu. Level, literacy, decrease access to med. care, half-way, r ehab)? @ -No Was there de-escalation of care discussed even if they declined (Discuss DNR or withdrawal of care, Hospice)? DNR status @ -No What co-morbidities impacted this encounter? (DM, HTN, Smoking, COPD, CAD, Cancer, CVA, ARF, Chemo, Hep., AIDS, mental health diagnosis, sleep apnea, morbid obesity)? @ -None Was patient admitted / discharged? Hospital course, mention meds given and route, prescriptions, significant lab abnormalities, going to OR and other pertinent info. @ -Discharge note 33-year-old male presented to the ED with complaints of scrotal swelling onset today without pain. No problems urinating. No concern for STD. Laboratory studies reviewed labs including CBC CMP, UA largely unremarkable. Ultrasound revealed diffuse scrotal wall edema. Discharged home in stable condition with prescription for antibiotics to cover for infection. Advise close follow-up with his PCP. Discussed return precautions with patient who verbalized agreement. Undiagnosed new problem with uncertain prognosis? @ -No Drug Therapy requiring intensive monitoring for toxicity (Heparin, Nitro, Insulin, Cardizem)? @ -No Were any procedures done? @ -No Diagnosis/symptom? @ -Scrotal swelling Acute, or Chronic, or Acute on Chronic? @ -Acute Uncomplicated (without systemic symptoms) or Complicated (systemic symptoms)? @ -Uncomplicated Side effects of treatment? @ -No Exacerbation, Progression, or Severe Exacerbation? @ -No Poses a threat to life or bodily function? How? (Chest pain, [place], MA, pneumonia, PE, COPD, DKA, ARF, appy, cholecystitis, CVA, Diverticulitis, Homicidal, Suicidal, threat to staff... and all critical care pts) @ -No - Lab Data Result diagrams: 10/04/23 23:31 10/04/23 23:31 Lab Results 10/04/23 10/04/23 10/04/23 Range/Units 23:31 23:31 23:56 WBC 10.6 (3.8-10.6) k/uL RBC 4.00 L (4.30-5.90) m/uL Hgb 15.4 (13.0-17.5) gm/dL Hct 47.5 (39.0-53.0) % MCV 118.6 H (80.0-100.0) fL MCH 38.4 H (25.0-35.0) pg MCHC 32.4 (31.0-37.0) g/dL RDW 12.7 (11.5-15.5) % Plt Count 227 (150-450) k/uL MPV 8.9 Neutrophils % 80 % Lymphocytes % 11 % Monocytes % 6 % Eosinophils % 1 % Basophils % 1 % Neutrophils # 8.4 H (1.3-7.7) k/uL Lymphocytes # 1.1 (1.0-4.8) k/uL Monocytes # 0.7 (0-1.0) k/uL Eosinophils # 0.1 (0-0.7) k/uL Basophils # 0.1 (0-0.2) k/uL Manual Slide Review Performed Anisocytosis (manual) Present Macrocytosis Marked A Sodium 135 L (137-145) mmol/L Potassium 4.3 (3.5-5.1) mmol/L Chloride 103 (98-107) mmol/L Carbon Dioxide 24 (22-30) mmol/L Anion Gap 8 mmol/L BUN 12 (9-20) mg/dL Creatinine 0.52 L (0.66-1.25) mg/dL Est GFR (CKD-EPI)AfAm >90 (>60 ml/min/1.73 sqM) Est GFR (CKD-EPI)NonAf >90 (>60 ml/min/1.73 sqM) Glucose 176 H (74-99) mg/dL Calcium 9.3 (8.4-10.2) mg/dL Total Bilirubin 1.1 (0.2-1.3) mg/dL AST 239 H (17-59) U/L ALT 94 H (4-49) U/L Alkaline Phosphatase 188 H (38-126) U/L NT-Pro-B Natriuret Pep 30 pg/mL Total Protein 6.8 (6.3-8.2) g/dL Albumin 3.7 (3.5-5.0) g/dL Urine Color Urine Appearance (Clear) Urine pH (5.0-8.0) Ur Specific [place] (1.001-1.035) Urine Protein (Negative) Urine Glucose (UA) (Negative) Urine Ketones (Negative) Urine Blood (Negative) Urine Nitrite (Negative) Urine Bilirubin (Negative) Urine Urobilinogen (<2.0) mg/dL Ur Leukocyte Esterase (Negative) Urine WBC (0-5) /hpf Amorphous Sediment (None) /hpf Urine Mucus (None) /hpf 10/05/23 Range/Units 00:36 WBC (3.8-10.6) k/uL RBC (4.30-5.90) m/uL Hgb (13.0-17.5) gm/dL Hct (39.0-53.0) % MCV (80.0-100.0) fL MCH (25.0-35.0) pg MCHC (31.0-37.0) g/dL RDW (11.5-15.5) % Plt Count (150-450) k/uL MPV Neutrophils % % Lymphocytes % % Monocytes % % Eosinophils % % Basophils % % Neutrophils # (1.3-7.7) k/uL Lymphocytes # (1.0-4.8) k/uL Monocytes # (0-1.0) k/uL Eosinophils # (0-0.7) k/uL Basophils # (0-0.2) k/uL Manual Slide Review Anisocytosis (manual) Macrocytosis Sodium (137-145) mmol/L Potassium (3.5-5.1) mmol/L Chloride (98-107) mmol/L Carbon Dioxide (22-30) mmol/L Anion Gap mmol/L BUN (9-20) mg/dL Creatinine (0.66-1.25) mg/dL Est GFR (CKD-EPI)AfAm (>60 ml/min/1.73 sqM) Est GFR (CKD-EPI)NonAf (>60 ml/min/1.73 sqM) Glucose (74-99) mg/dL Calcium (8.4-10.2) mg/dL Total Bilirubin (0.2-1.3) mg/dL AST (17-59) U/L ALT (4-49) U/L Alkaline Phosphatase (38-126) U/L NT-Pro-B Natriuret Pep pg/mL Total Protein (6.3-8.2) g/dL Albumin (3.5-5.0) g/dL Urine Color Light [place] Urine Appearance Turbid (Clear) Urine pH 6.0 (5.0-8.0) Ur Specific [place] 1.024 (1.001-1.035) Urine Protein Trace H (Negative) Urine Glucose (UA) Negative (Negative) Urine Ketones Negative (Negative) Urine Blood Negative (Negative) Urine Nitrite Negative (Negative) Urine Bilirubin Negative (Negative) Urine Urobilinogen <2.0 (<2.0) mg/dL Ur Leukocyte Esterase Negative (Negative) Urine WBC 1 (0-5) /hpf Amorphous Sediment Many H (None) /hpf Urine Mucus Occasional H (None) /hpf Disposition Clinical Impression: Scrotal swelling Disposition: HOME SELF-CARE Condition: Good Additional Instructions: Please return to the Emergency Department if symptoms worsen or any other concerns. Please follow-up with your PCP. Prescriptions: Amoxic-Pot Clav 875-125Mg [Augmentin 875-125] 1 tab PO Q12HR #20 tab Is patient prescribed a controlled substance at d/c from ED?: No Referrals: Gabe Flynn DO [Primary Care Provider] - 1-2 days Time of Disposition: 03:12
[2023-10-04 23:45] LABS: Basophils # (A) 0.1 k/uL (0-0.2); Basophils % (A) 1 %; Eosinophils # (A) 0.1 k/uL (0-0.7); Eosinophils % (A) 1 %; HCT 47.5 % (39.0-53.0); HGB 15.4 gm/dL (13.0-17.5); Lymphocytes # (A) 1.1 k/uL (1.0-4.8); Lymphocytes % (A) 11 %; MCH 38.4 pg (25.0-35.0); MCHC 32.4 g/dL (31.0-37.0); MCV 118.6 fL (80.0-100.0); Macrocytosis Marked; Mean Platelet Volume 8.9; Monocytes # (A) 0.7 k/uL (0-1.0); Monocytes % (A) 6 %; Neutrophils # (A) 8.4 k/uL (1.3-7.7); Neutrophils % (A) 80 %; Platelet Count 227 k/uL (150-450); RDW 12.7 % (11.5-15.5); WBC 10.6 k/uL (3.8-10.6)
--- NOTE | 2023-10-04 23:52 | US ---
EXAM: US Scrotum CLINICAL HISTORY: swelling TECHNIQUE: Real-time ultrasound of the scrotum with color Doppler and image documentation. COMPARISON: No relevant prior studies available. FINDINGS: Right testicle: The right testicle measures 3.5 x 2.4 x 2.5 cm. No intratesticular mass or evidence for torsion. Left testicle: The left testicle measures 3.6 x 2.5 x 2.3 cm. No intratesticular mass or evidence for torsion. Epididymides: The right epididymis measures 6 x 12 mm. The left epididymis measures 8 x 7 mm. Scrotum: Diffuse scrotal wall edema noted with the scrotum measuring up to 1.4 cm in diameter. No loculated fluid collection. IMPRESSION: 1. Diffuse scrotal wall edema noted with the scrotum measuring up to 1.4 cm in diameter. No loculated fluid collection. 2. The testicles and epididymides are unremarkable bilaterally. No evidence for intratesticular mass or torsion.
[2023-10-05 00:07] LABS: ALT 94 U/L (4-49); AST 239 U/L (17-59); African American GFR (CKD) >90 (>60 ml/min/1.73 sqM); Albumin 3.7 g/dL (3.5-5.0); Alkaline Phosphatase 188 U/L (38-126); Anion Gap 8 mmol/L; Blood Urea Nitrogen 12 mg/dL (9-20); Calcium 9.3 mg/dL (8.4-10.2); Carbon Dioxide 24 mmol/L (22-30); Chloride 103 mmol/L (98-107); Glucose 176 mg/dL (74-99); Non-African American GFR(CKD) >90 (>60 ml/min/1.73 sqM); Sodium 135 mmol/L (137-145); Total Bilirubin 1.1 mg/dL (0.2-1.3); Total Protein 6.8 g/dL (6.3-8.2)
[2023-10-05 00:12] LABS: Potassium 4.3 mmol/L (3.5-5.1)
[2023-10-05 01:53] LABS: Amorphous Sediment,Urine Many /hpf; Appearance,Urine Turbid (Clear); Bilirubin,Urine Negative (Negative); Blood,Urine Negative (Negative); Color,Urine Light Orange; Glucose,Urine (UA) Negative (Negative); Ketones,Urine Negative (Negative); Leukocyte Esterase,Urine Negative (Negative); Mucus,Urine Occasional /hpf; Nitrite,Urine Negative (Negative); Protein,Urine Trace (Negative); Specific Gravity,Urine 1.024 (1.001-1.035); Urobilinogen,Urine <2.0 mg/dL (<2.0); WBC,Urine 1 /hpf (0-5)
[2023-10-05 02:03] LABS: Anisocytosis (M) Present
[2023-10-05 02:06] VITALS: TEMP 99
[2023-10-05 04:02] VITALS: BP 137/79; PULSE 98; RESP 17
== END 2023-10-05 03:31 | disposition home or self-care (01) ==
LOC: EC 22:08
DX: N49.2 Inflammatory disorders of scrotum (principal); F17.200 Nicotine dependence, unspecified, uncomplicated; Z90.49 Acquired absence of other specified parts of digestive tract
CPT/HCPCS: 36415; 76870; 80053; 81001; 83880; 85025; 93975; 99284

== ENCOUNTER → 2023-10-14 | Outpatient (CLI) | payer OTHER ==
--- NOTE | 2023-10-14 12:17 | CT ---
EXAMINATION TYPE: CT abdomen pelvis w con DATE OF EXAM: 10/14/2023 COMPARISON: 09/26/2023 INDICATION: Bilateral testicular swelling, gallbladder surgery was last week DLP: 1784 mGycm, Automated exposure control for dose reduction was used. CONTRAST: 100 mL of Isovue 300. Study performed with Oral Contrast TECHNIQUE: Axial images were obtained from above the diaphragm to the pubic rami in the axial plane a t 5 mm thick sections. Reconstructed images are reviewed on the computer in the coronal plane. FINDINGS: Limited CT sections are obtained the lung bases. The lung bases are clear. CT ABDOMEN: Ascites is present. Liver: Normal Spleen: Normal Pancreas: Normal Adrenal glands: The adrenal glands are normal. Gallbladder: Surgically absent. Small amount of fluid is within the gallbladder fossa. This is not ma rkedly collecting at this location. Greater fluid appears to be within the pelvis and paracolic gutte rs. Leak cannot be excluded. If there is suspicion for biliary leak, consider nuclear medicine HIDA s can. Kidneys: No masses are evident. No hydronephrosis is present. No cysts are present. Delayed images were obtained through the kidneys, which remain unremarkable. Aorta: Normal Inferior vena cava: Normal. CT PELVIS: Loops of bowel within the abdomen and pelvis are normal. There are loops of bowel which are incom pletely distended or lack oral contrast limiting their evaluation. Appendix: Normal as visualized. Urinary bladder: Normal. Genitourinary structures: Prostate is normal Osseous structures: No suspicious lytic or sclerotic lesions. IMPRESSION: 1. Ascites. 2. No definite evidence related to biliary leak. However, if there is clinical concern, HIDA scan cou ld be performed.
== END | disposition home or self-care (01) ==
LOC: RADCTMAIN 09:41
PROVIDERS: ATTEND Family Medicine
DX: N50.89 Other specified disorders of the male genital organs (principal); R18.8 Other ascites
CPT/HCPCS: 74177; Q9967

== ENCOUNTER → 2023-10-26 | Outpatient (CLI) | payer OTHER ==
--- NOTE | 2023-10-26 12:06 | NM ---
EXAMINATION TYPE: NM hepatobiliary wo EF DATE OF EXAM: 10/26/2023 11:55 AM COMPARISON: CT abdomen pelvis most recent from 10/14/2023. CLINICAL INDICATION:Male, 33 years old with history of R10.11 RIGHT UPPER QUADRANT PAIN; TECHNIQUE: The patient was given 4.8 mCi of Technetium 99m-Mebrofenin as a radiotracer and multiple scintigraphic images were obtained of the abdomen. FINDINGS: Normal uptake of radiotracer was identified within the liver with excretion into the hepatic and comm on biliary ducts within 240s. There was normal progressive washout of the liver over the course of th e study. Radiotracer uptake within the gallbladder is surgically absent. Small bowel activity was paramjit ntified at 240s . IMPRESSION: No definitive evidence for bile leak.
== END | disposition home or self-care (01) ==
LOC: RADNMMAIN 06:44
PROVIDERS: ATTEND Surgery Plastic and Reconstructive Surgery
DX: R10.11 Right upper quadrant pain (principal)
CPT/HCPCS: 78226; A9537

== ENCOUNTER 2023-11-11 02:29 | Emergency (ER) | payer OTHER ==
--- NOTE | 2023-11-11 02:57 | ED ---
Abdominal Pain HPI - General Source: patient Mode of arrival: wheelchair <Mauro Singh - Last Filed: 11/11/23 04:42> <Rajat Vance - Last Filed: 11/11/23 08:11> - General Chief Complaint: Abdominal Pain Stated Complaint: Gall bladder complications Time Seen by Provider: 11/11/23 02:47 - History of Present Illness Initial Comments: 33-year-old male presenting with chief complaint of right upper quadrant pain. Patient had a cholecystectomy with Dr. Pinzon on 09/28. He states that over the last few days he has had persistent right upper quadrant pain which worsened over the last 3 to 4 hours tonight. Feels like a sharp stabbing pain that goes to his back. He is having no nausea or vomiting. No diarrhea or constipation. No fevers. Patient is three-quarter pack per day smoker as well as a vapor. He reports that he is a former daily drinker. (Mauro Singh) - Related Data Home Medications Medication Instructions Recorded Confirmed Pantoprazole [Protonix] 40 mg PO DAILY 09/22/23 09/27/23 carvediloL [Coreg] 3.125 mg PO BID 09/27/23 09/27/23 Previous Rx's Medication Instructions Recorded Lidocaine 5% Patch [Lidoderm 5% 1 patch TOPICAL DAILY PRN #30 patch 09/22/23 Patch] methocarbamoL [Robaxin-750] 1,500 mg PO TID PRN #30 tab 09/22/23 Ibuprofen [Motrin] 800 mg PO Q8H PRN #20 tab 09/30/23 Levofloxacin [Levaquin] 500 mg PO DAILY 5 Days #5 tab 09/30/23 Nicotine 21Mg/24Hr Patch [Habitrol] 1 patch TRANSDERM DAILY patch 09/30/23 Thiamine [Vitamin B-1] 100 mg PO DAILY #30 tab 09/30/23 cloNIDine HCL [Catapres] 0.1 mg PO BID #60 tab 09/30/23 Amoxic-Pot Clav 875-125Mg 1 tab PO Q12HR #20 tab 10/05/23 [Augmentin 875-125] Allergies Allergy/AdvReac Type Severity Reaction Status Date / Time No Known Allergies Allergy Verified 11/11/23 02:44 Review of Systems ROS Other: All systems not noted in ROS Statement are negative. <Mauro Singh - Last Filed: 11/11/23 04:42> ROS Other: All systems not noted in ROS Statement are negative. <Rajat Vance - Last Filed: 11/11/23 08:11> ROS Statement: Those systems with pertinent positive or pertinent negative responses have been documented in the HPI. Past Medical History Past Medical History: Hypertension Additional Past Medical History / Comment(s): Nephrolithiasis, ETOH abuse with past withdrawal tremors, past alcoholic hepatitis/acute severe kidney injury/hyperphosphatemia/acute metabolic encephalopathy from renal failure. History of Any Multi-Drug Resistant Organisms: None Reported Past Surgical History: Cholecystectomy, Tonsillectomy Past Anesthesia/Blood Transfusion Reactions: No Reported Reaction Past Psychological History: No Psychological Hx Reported Smoking Status: Current every day smoker Past Alcohol Use History: Abuse, Daily, Heavy Past Drug Use History: Cocaine, Marijuana - Past Family History Father Family Medical History: Myocardial Infarction ([place]) Mother Family Medical History: Hypertension Additional Family Medical History / Comment(s): heart stent <Mauro Singh - Last Filed: 11/11/23 04:42> General Exam Limitations: no limitations General appearance: alert, in no apparent distress Head exam: Present: atraumatic, normocephalic Eye exam: Present: normal appearance, EOMI Neck exam: Present: normal inspection. Absent: meningismus Respiratory exam: Present: normal lung sounds bilaterally. Absent: respiratory distress, wheezes, rales, rhonchi, stridor Cardiovascular Exam: Present: regular rate, normal rhythm, normal heart sounds. Absent: systolic murmur, diastolic murmur, rubs, gallop, clicks GI/Abdominal exam: Present: soft, distended, tenderness. Absent: guarding, rebound, rigid Neurological exam: Present: alert, oriented X3 Psychiatric exam: Present: normal affect, normal mood Skin exam: Present: normal color <Mauro Singh - Last Filed: 11/11/23 04:42> Course Vital Signs 11/11/23 02:40 Temperature 98.3 F Pulse Rate 84 Respiratory 19 Rate Blood Pressure 166/99 Medical Decision Making - Lab Data Result diagrams: 11/11/23 03:04 11/11/23 03:04 <Mauro Singh - Last Filed: 11/11/23 04:42> - Lab Data Result diagrams: 11/11/23 03:04 11/11/23 03:04 <Rajat Vance - Last Filed: 11/11/23 08:11> - Medical Decision Making Was pt. sent in by a medical professional or institution (CARMEN Frey, SURFACE LAY OUT TECHNICIAN, urgent care, hospital, or halfway...) When possible be specific @ -[No] Did you speak to anyone other than the patient for history (EMS, parent, family, police, friend...)? What history was obtained from this source @ -[No] Did you review nursing and triage notes (agree or disagree)? Why? @ -[I reviewed and agree with nursing and triage notes] Were old charts reviewed (outside hosp., previous admission, EMS record, old EKG, old radiological studies, urgent care reports/EKG's, halfway records)? Report findings @ -Previous admissions reviewed. Recent HIDA scan was reviewed which showed no definitive evidence for bile leak on 10/25 Differential Diagnosis (chest pain, altered mental status, abdominal pain women, abdominal pain men, vaginal bleeding, weakness, fever, dyspnea, syncope, headache, dizziness, GI bleed, back pain, seizure, CVA, palpatations, mental he alth, musculoskeletal)? @ -MDM Differential Abdominal Pain Men: Appendicitis, cholecystitis, diverticulosis, ischemic bowel, pancreatitis, hepatitis, UTI, gastroenteritis, AAA, incarcerated hernia, bowel obstruction, constipation, inflammatory bowel, hepatitis, peptic ulcer disease, splenic infarction, perforated viscus, testicular torsion... This is not meant to be an all-inclusive list EKG interpreted by me (3pts min.). @ -[As above] X-rays interpreted by me (1pt min.). @ -[None done] CT interpreted by me (1pt min.). @ -Report pending U/S interpreted by me (1pt. min.). @ -[None done] What testing was considered but not performed or refused? (CT, X-rays, U/S, labs)? Why? @ -[None] What meds were considered but not given or refused? Why? @ -[None] Did you discuss the management of the patient with other professionals (professionals i.e. , [employer], SURFACE LAY OUT TECHNICIAN, lab, RT, psych nurse, social media community manager, research dietitian, teacher, property disposal officer, case resource manager)? Give summary @ -[No] Was smoking cessation discussed for >3mins.? @ -[No] Was critical care preformed (if so, how long)? @ -[No] Were there social determinants of health that impacted care today? How? (Homelessness, low income, unemployed, alcoholism, drug addiction, transportation, low edu. Level, literacy, decrease access to med. care, retirement, rehab)? @ -[No] Was there de-escalation of care discussed even if they declined (Discuss DNR or withdrawal of care, Hospice)? DNR status @ -[No] What co-morbidities impacted this encounter? (DM, HTN, Smoking, COPD, CAD, Cancer, CVA, ARF, Chemo, Hep., AIDS, mental health diagnosis, sleep apnea, morbid obesity)? @ -[None] Was patient admitted / discharged? Hospital course, mention meds given and route, prescriptions, significant lab abnormalities, going to OR and other pertinent info. @ -33-year-old male presenting with chief complaint of right upper quadrant pain. History of cholecystectomy back in September. History and physical exam are conducted. Labs consistent with alcohol abuse, AST 191 ALT [address] of the abdomen and pelvis with contrast was obtained, report is pending. Patient signed out to my attending Dr. Vance Undiagnosed new problem with uncertain prognosis? @ -[No] Drug Therapy requiring intensive monitoring for toxicity (Heparin, Nitro, Insulin, Cardizem)? @ -[No] Were any procedures done? @ -[No] Diagnosis/symptom? @ -[default] Acute, or Chronic, or Acute on Chronic? @ -[default] Uncomplicated (without systemic symptoms) or Complicated (systemic symptoms)? @ -[default] Side effects of treatment? @ -[No] Exacerbation, Progression, or Severe Exacerbation? @ -[No] Poses a threat to life or bodily function? How? (Chest pain, [place], [place], pneumonia, PE, COPD, DKA, ARF, appy, cholecystitis, CVA, Diverticulitis, Homicidal, Suicidal, threat to staff... and all critical care pts) @ -[No] (Mauro Singh) - Lab Data Lab Results 11/11/23 11/11/23 11/11/23 Range/Units 03:04 03:04 03:04 WBC 8.3 (3.8-10.6) k/uL RBC 4.38 (4.30-5.90) m/uL Hgb 16.2 (13.0-17.5) gm/dL Hct 49.6 (39.0-53.0) % MCV 113.1 H D (80.0-100.0) fL MCH 37.0 H (25.0-35.0) pg MCHC 32.7 (31.0-37.0) g/dL RDW 14.0 (11.5-15.5) % Plt Count 172 (150-450) k/uL MPV 8.5 Neutrophils % 67 % Lymphocytes % 22 % Monocytes % 6 % Eosinophils % 2 % Basophils % 1 % Neutrophils # 5.6 (1.3-7.7) k/uL Lymphocytes # 1.8 (1.0-4.8) k/uL Monocytes # 0.5 (0-1.0) k/uL Eosinophils # 0.1 (0-0.7) k/uL Basophils # 0.0 (0-0.2) k/uL Macrocytosis Marked A PT 13.9 H (10.0-12.5) sec INR 1.3 H (<1.2) APTT 28.3 (22.0-30.0) sec Sodium 140 (137-145) mmol/L Potassium 3.4 L (3.5-5.1) mmol/L Chloride 104 (98-107) mmol/L Carbon Dioxide 21 L (22-30) mmol/L Anion Gap 15 mmol/L BUN 9 (9-20) mg/dL Creatinine 0.50 L (0.66-1.25) mg/dL Est GFR (CKD-EPI)AfAm >90 (>60 ml/min/1.73 sqM) Est GFR (CKD-EPI)NonAf >90 (>60 ml/min/1.73 sqM) Glucose 120 H (74-99) mg/dL Plasma Lactic Acid Raul (0.7-2.0) mmol/L Calcium 9.5 (8.4-10.2) mg/dL Total Bilirubin 1.0 (0.2-1.3) mg/dL AST 191 H (17-59) U/L ALT 135 H (4-49) U/L Alkaline Phosphatase 248 H (38-126) U/L Total Protein 8.7 H (6.3-8.2) g/dL Albumin 4.9 (3.5-5.0) g/dL Amylase 49 (30-110) U/L Lipase 124 (23-300) U/L Urine Color Urine Appearance (Clear) Urine pH (5.0-8.0) Ur Specific [place] (1.001-1.035) Urine Protein (Negative) Urine Glucose (UA) (Negative) Urine Ketones (Negative) Urine Blood (Negative) Urine Nitrite (Negative) Urine Bilirubin (Negative) Urine Urobilinogen (<2.0) mg/dL Ur Leukocyte Esterase (Negative) 11/11/23 11/11/23 Range/Units 03:04 04:45 WBC (3.8-10.6) k/uL RBC (4.30-5.90) m/uL Hgb (13.0-17.5) gm/dL Hct (39.0-53.0) % MCV (80.0-100.0) fL MCH (25.0-35.0) pg MCHC (31.0-37.0) g/dL RDW (11.5-15.5) % Plt Count (150-450) k/uL MPV Neutrophils % % Lymphocytes % % Monocytes % % Eosinophils % % Basophils % % Neutrophils # (1.3-7.7) k/uL Lymphocytes # (1.0-4.8) k/uL Monocytes # (0-1.0) k/uL Eosinophils # (0-0.7) k/uL Basophils # (0-0.2) k/uL Macrocytosis PT (10.0-12.5) sec INR (<1.2) APTT (22.0-30.0) sec Sodium (137-145) mmol/L Potassium (3.5-5.1) mmol/L Chloride (98-107) mmol/L Carbon Dioxide (22-30) mmol/L Anion Gap mmol/L BUN (9-20) mg/dL Creatinine (0.66-1.25) mg/dL Est GFR (CKD-EPI)AfAm (>60 ml/min/1.73 sqM) Est GFR (CKD-EPI)NonAf (>60 ml/min/1.73 sqM) Glucose (74-99) mg/dL Plasma Lactic Acid Raul 1.4 (0.7-2.0) mmol/L Calcium (8.4-10.2) mg/dL Total Bilirubin (0.2-1.3) mg/dL AST (17-59) U/L ALT (4-49) U/L Alkaline Phosphatase (38-126) U/L Total Protein (6.3-8.2) g/dL Albumin (3.5-5.0) g/dL Amylase (30-110) U/L Lipase (23-300) U/L Urine Color Colorless Urine Appearance Clear (Clear) Urine pH 6.5 (5.0-8.0) Ur Specific [place] 1.039 H (1.001-1.035) Urine Protein Negative (Negative) Urine Glucose (UA) Negative (Negative) Urine Ketones Negative (Negative) Urine Blood Negative (Negative) Urine Nitrite Negative (Negative) Urine Bilirubin Negative (Negative) Urine Urobilinogen <2.0 (<2.0) mg/dL Ur Leukocyte Esterase Negative (Negative) Disposition <Mauro Singh - Last Filed: 11/11/23 04:42> Is patient prescribed a controlled substance at d/c from ED?: No <Rajat Vance - Last Filed: 11/11/23 08:11> Clinical Impression: Abdominal pain Disposition: HOME SELF-CARE Condition: Good Instructions (If sedation given, give patient instructions): Abdominal Pain (ED) Referrals: Gabe Flynn DO [Primary Care Provider] - 1-2 days Caitlin Pinzon MD [STAFF PHYSICIAN] - 1-2 days
[2023-11-11] MEDS: MORPHINE SULFATE 4 MG/ML SYRINGE IVP STA (03:21)
[2023-11-11] MEDS: SODIUM CHLORIDE 0.9% 1,000 ML IV STA (03:21)
[2023-11-11 03:32] LABS: Basophils % (A) 1 %; Eosinophils # (A) 0.1 k/uL (0-0.7); Eosinophils % (A) 2 %; HCT 49.6 % (39.0-53.0); HGB 16.2 gm/dL (13.0-17.5); Lymphocytes # (A) 1.8 k/uL (1.0-4.8); Lymphocytes % (A) 22 %; MCHC 32.7 g/dL (31.0-37.0); Macrocytosis Marked; Mean Platelet Volume 8.5; Monocytes # (A) 0.5 k/uL (0-1.0); Monocytes % (A) 6 %; Neutrophils # (A) 5.6 k/uL (1.3-7.7); Neutrophils % (A) 67 %; Platelet Count 172 k/uL (150-450); RBC 4.38 m/uL (4.30-5.90); WBC 8.3 k/uL (3.8-10.6)
[2023-11-11 03:38] LABS: ALT 135 U/L (4-49); AST 191 U/L (17-59); African American GFR (CKD) >90 (>60 ml/min/1.73 sqM); Albumin 4.9 g/dL (3.5-5.0); Alkaline Phosphatase 248 U/L (38-126); Amylase 49 U/L (30-110); Anion Gap 15 mmol/L; Blood Urea Nitrogen 9 mg/dL (9-20); Calcium 9.5 mg/dL (8.4-10.2); Carbon Dioxide 21 mmol/L (22-30); Chloride 104 mmol/L (98-107); Glucose 120 mg/dL (74-99); Lipase 124 U/L (23-300); Non-African American GFR(CKD) >90 (>60 ml/min/1.73 sqM); Potassium 3.4 mmol/L (3.5-5.1); Sodium 140 mmol/L (137-145); Total Protein 8.7 g/dL (6.3-8.2)
[2023-11-11 03:40] LABS: INR 1.3 (<1.2); Partial Thromboplastin Time 28.3 sec (22.0-30.0); Prothrombin Time 13.9 sec (10.0-12.5)
[2023-11-11 03:41] LABS: MCV 113.1 fL (80.0-100.0)
[2023-11-11] MEDS: HYDROmorphone 1 MG/ML 1 ML SYRINGE IVP STA (04:35)
--- NOTE | 2023-11-11 05:15 | CT ---
EXAMINATION TYPE: CT abdomen pelvis w con DATE OF EXAM: 11/11/2023 COMPARISON: Prior CT October 14, 2023 HISTORY: reports right abdominal pain. 3 weeks had gallbladder removed by [place]. reports maybe he pushed it to hard at work. reports incisions are all closed and appear well. Dr Pinzon noted to h im he had "liver damage". was scheduled for a abdominal CT to assess possible ascites. CT DLP: 1394.5 mGycm, Automated Exposure Control for Dose Reduction was Utilized. CONTRAST: CT scan of the abdomen and pelvis is performed without oral and with IV Contrast, patient injected wi th 100 mL of Isovue 300. FINDINGS: LUNG BASES: No significant abnormality is appreciated. LIVER/GB: Hepatomegaly redemonstrated. Liver remains heterogeneously hypodense with loculated anterio r peripheral contour. Gallbladder is surgically absent. No biliary dilatation. PANCREAS: No significant abnormality is seen. SPLEEN: Splenomegaly redemonstrated measuring 16.8 cm long axis axial image 27. ADRENALS: No significant abnormality is seen. KIDNEYS: No significant abnormality is seen. BOWEL: No abnormal small or large bowel dilatation. Areas of mild wall thickening are redemonstrate d PROSTATE/SEMINAL VESICLES: No gross abnormality seen. LYMPH NODES: No greater than 1cm abdominal or pelvic lymph nodes are appreciated. OSSEOUS STRUCTURES: No significant abnormality is seen. OTHER: Small amount of intraperitoneal ascites redemonstrated. IMPRESSION: Persistent hepatosplenomegaly. Persistent hepatocellular disease and small amount of intr aperitoneal ascites. Bowel wall thickening presumed product of underlying liver disease. No significa nt change from most recent prior CT.
[2023-11-11 05:28] LABS: Appearance,Urine Clear (Clear); Bilirubin,Urine Negative (Negative); Blood,Urine Negative (Negative); Color,Urine Colorless; Glucose,Urine (UA) Negative (Negative); Ketones,Urine Negative (Negative); Leukocyte Esterase,Urine Negative (Negative); Nitrite,Urine Negative (Negative); PH, Urine 6.5 (5.0-8.0); Protein,Urine Negative (Negative); Specific Gravity,Urine 1.039 (1.001-1.035); Urobilinogen,Urine <2.0 mg/dL (<2.0)
[2023-11-11] MEDS: MORPHINE SULFATE 4 MG/ML SYRINGE IV STA (08:31)
[2023-11-11] MEDS: NICOTINE 14MG/24HR PATCH TRANSDERM STA (08:32)
[2023-11-11 08:50] VITALS: BP 161/98; PULSE 82; RESP 16; TEMP 98.1
== END 2023-11-11 09:15 | disposition home or self-care (01) ==
LOC: EC 02:29
DX: R10.11 Right upper quadrant pain (principal); F17.200 Nicotine dependence, unspecified, uncomplicated
CPT/HCPCS: 36415; 80053; 82150; 83605; 83690; 85025; 85610; 85730; 81003; 74177; 99284; 96374; 96375; 96376; 96361; S4990; J2270; J1170; Q9967

== ENCOUNTER 2023-11-11 23:31 | Emergency (ER) | payer OTHER ==
[2023-11-12] MEDS: KETOROLAC 15 MG/ML 1 ML VIAL IVP STA (01:22)
[2023-11-12 02:08] LABS: ALT 125 U/L (4-49); AST 165 U/L (17-59); African American GFR (CKD) >90 (>60 ml/min/1.73 sqM); Albumin 4.7 g/dL (3.5-5.0); Alkaline Phosphatase 265 U/L (38-126); Amylase 52 U/L (30-110); Anion Gap 10 mmol/L; Blood Urea Nitrogen 10 mg/dL (9-20); Calcium 9.1 mg/dL (8.4-10.2); Carbon Dioxide 20 mmol/L (22-30); Chloride 105 mmol/L (98-107); Glucose 113 mg/dL (74-99); Lipase 227 U/L (23-300); Non-African American GFR(CKD) >90 (>60 ml/min/1.73 sqM); Sodium 135 mmol/L (137-145); Total Bilirubin 1.7 mg/dL (0.2-1.3); Total Protein 8.6 g/dL (6.3-8.2)
[2023-11-12 02:20] LABS: Potassium 4.4 mmol/L (3.5-5.1)
--- NOTE | 2023-11-12 02:30 | ED ---
Abdominal Pain HPI - General Chief Complaint: Abdominal Pain Stated Complaint: ABD Pain Time Seen by Provider: 11/12/23 00:30 Source: patient Mode of arrival: ambulatory Limitations: no limitations - History of Present Illness Initial Comments: 33-year-old male presenting with chief complaint of abdominal pain. Patient was seen here last night for the same complaint. He is having right-sided abdominal pain which is sharp pain. He had a cholecystectomy with Dr. Pinzon back in September. He had a HIDA scan performed on the which showed no evidence of bile leak. An appointment scheduled with Dr. Pinzon for this upcoming Tuesday. He is having no nausea vomiting or diarrhea. No fevers. No chest pain or difficulty breathing. No injuries. - Related Data Home Medications Medication Instructions Recorded Confirmed Pantoprazole [Protonix] 40 mg PO DAILY 09/22/23 09/27/23 carvediloL [Coreg] 3.125 mg PO BID 09/27/23 09/27/23 Previous Rx's Medication Instructions Recorded Lidocaine 5% Patch [Lidoderm 5% 1 patch TOPICAL DAILY PRN #30 patch 09/22/23 Patch] methocarbamoL [Robaxin-750] 1,500 mg PO TID PRN #30 tab 09/22/23 Ibuprofen [Motrin] 800 mg PO Q8H PRN #20 tab 09/30/23 Levofloxacin [Levaquin] 500 mg PO DAILY 5 Days #5 tab 09/30/23 Nicotine 21Mg/24Hr Patch [Habitrol] 1 patch TRANSDERM DAILY patch 09/30/23 Thiamine [Vitamin B-1] 100 mg PO DAILY #30 tab 09/30/23 cloNIDine HCL [Catapres] 0.1 mg PO BID #60 tab 09/30/23 Amoxic-Pot Clav 875-125Mg 1 tab PO Q12HR #20 tab 10/05/23 [Augmentin 875-125] Allergies Allergy/AdvReac Type Severity Reaction Status Date / Time No Known Allergies Allergy Verified 11/11/23 23:37 Review of Systems ROS Statement: Those systems with pertinent positive or pertinent negative responses have been documented in the HPI. ROS Other: All systems not noted in ROS Statement are negative. Past Medical History Past Medical History: Hypertension Additional Past Medical History / Comment(s): Nephrolithiasis, ETOH abuse with past withdrawal tremors, past alcoholic hepatitis/acute severe kidney injury/hyperphosphatemia/acute metabolic encephalopathy from renal failure. History of Any Multi-Drug Resistant Organisms: None Reported Past Surgical History: Cholecystectomy, Tonsillectomy Past Anesthesia/Blood Transfusion Reactions: No Reported Reaction Past Psychological History: No Psychological Hx Reported Smoking Status: Current every day smoker Past Alcohol Use History: Abuse, Daily, Heavy Past Drug Use History: Cocaine, Marijuana - Past Family History Father Family Medical History: Myocardial Infarction ([place]) Mother Family Medical History: Hypertension Additional Family Medical History / Comment(s): heart stent General Exam Limitations: no limitations General appearance: alert, in no apparent distress Head exam: Present: atraumatic, normocephalic Eye exam: Present: normal appearance, EOMI Neck exam: Present: normal inspection. Absent: meningismus Respiratory exam: Present: normal lung sounds bilaterally. Absent: respiratory distress, wheezes, rales, rhonchi, stridor Cardiovascular Exam: Present: regular rate, normal rhythm, normal heart sounds. Absent: systolic murmur, diastolic murmur, rubs, gallop, clicks GI/Abdominal exam: Present: soft, organomegaly. Absent: distended, tenderness, guarding, rebound, rigid Neurological exam: Present: alert, oriented X3 Psychiatric exam: Present: normal affect, normal mood Skin exam: Present: normal color Course Vital Signs 11/11/23 11/12/23 11/12/23 23:34 00:38 01:47 Temperature 97.5 F L Pulse Rate 103 H 87 76 Respiratory 20 16 16 Rate Blood Pressure 175/120 180/119 162/100 O2 Sat by Pulse 98 95 94 L Oximetry 11/12/23 03:20 Temperature Pulse Rate 81 Respiratory 16 Rate Blood Pressure 154/103 O2 Sat by Pulse 96 Oximetry Medical Decision Making - Medical Decision Making Was pt. sent in by a medical professional or institution (, PA, SILVERING DEPARTMENT SUPERVISOR, urgent care, hospital, or chcf...) When possible be specific @ -No Did you speak to anyone other than the patient for history (EMS, parent, family, police, friend...)? What history was obtained from this source @ -No Did you review nursing and triage notes (agree or disagree)? Why? @ -I reviewed and agree with nursing and triage notes Were old charts reviewed (outside hosp., previous admission, EMS record, old EKG, old radiological studies, urgent care reports/EKG's, chcf records)? Report findings @ -No old charts were reviewed Differential Diagnosis (chest pain, altered mental status, abdominal pain women, abdominal pain men, vaginal bleeding, weakness, fever, dyspnea, syncope, headache, dizziness, GI bleed, back pain, seizure, CVA, palpatations, mental health, musculoskeletal)? @ -[facility] Differential Abdominal Pain Men: Appendicitis, cholecystitis, diverticulosis, ischemic bowel, pancreatitis, hepatitis, UTI, gastroenteritis, AAA, incarcerated hernia, bowel obstruction, constipation, inflammatory bowel, hepatitis, peptic ulcer disease, splenic infarction, perforated viscus, testicular torsion... This is not meant to be an all-inclusive list EKG interpreted by me (3pts min.). @ -As above X-rays interpreted by me (1pt min.). @ -None done CT interpreted by me (1pt min.). @ -None done U/S interpreted by me (1pt. min.). @ -None done What testing was considered but not performed or refused? (CT, X-rays, U/S, labs)? Why? @ -None What meds were considered but not given or refused? Why? @ -None Did you discuss the management of the patient with other professionals (professionals i.e. , PA, SILVERING DEPARTMENT SUPERVISOR, lab, RT, psych nurse, director of social services, quoter, t eacher, consular officer, lining caser)? Give summary @ -No Was smoking cessation discussed for >3mins.? @ -No Was critical care preformed (if so, how long)? @ -No Were there social determinants of health that impacted care today? How? (Homelessness, low income, unemployed, alcoholism, drug addiction, transportation, low edu. Level, literacy, decrease access to med. care, halfway, rehab)? @ -No Was there de-escalation of care discussed even if they declined (Discuss DNR or withdrawal of care, Hospice)? DNR status @ -No What co-morbidities impacted this encounter? (DM, HTN, Smoking, COPD, CAD, Cancer, CVA, ARF, Chemo, Hep., AIDS, mental health diagnosis, sleep apnea, morbid obesity)? @ -None Was patient admitted / discharged? Hospital course, mention meds given and route, prescriptions, significant lab abnormalities, going to OR and other pertinent info. @ -33-year-old male presenting with chief complaint of abdominal pain. Complaint. My attending spoke with general surgeon on-call Dr. Montelongo regarding the patient during his last visit, advised follow-up with the patient's surgeon. Patient has an upcoming appointment with his surgeon labs are obtained which continue to show no leukocytosis. Patient is resting comfortably in bed watching TV. He is educated on today's findings discharge. Follow-up with PCP. Report back to ER with any new or worsening symptoms. Discussed return parameters and answered all questions. Patient conveyed verbal understanding and agreed to the plan. I discussed this case in detail with my attending Dr. Vance Undiagnosed new problem with uncertain prognosis? @ -No Drug Therapy requiring intensive monitoring for toxicity (Heparin, Nitro, Insulin, Cardizem)? @ -No Were any procedures done? @ -No Diagnosis/symptom? @ -Abdominal pain Acute, or Chronic, or Acute on Chronic? @ -Acute Uncomplicated (without systemic symptoms) or Complicated (systemic symptoms)? @ -Uncomplicated Side effects of treatment? @ -No Exacerbation, Progression, or Severe Exacerbation? @ -No Poses a threat to life or bodily function? How? (Chest pain, USA, [place], pneumonia, PE, COPD, DKA, ARF, appy, cholecystitis, CVA, Diverticulitis, Homicidal, Suicid al, threat to staff... and all critical care pts) @ -Low likelihood - Lab Data Result diagrams: 11/12/23:11/12/23 01:24 Lab Results 11/12/23 11/12/23 11/12/23 Range/Units :06 07: 01:24 WBC 8.9 (3.8-10.6) k/uL RBC 4.46 (4.30-5.90) m/uL Hgb 16.6 (13.0-17.5) gm/dL Hct 51.8 (39.0-53.0) % MCV 116.0 H (80.0-100.0) fL MCH 37.2 H (25.0-35.0) pg MCHC 32.1 (31.0-37.0) g/dL RDW 13.6 (11.5-15.5) % Plt Count 118 L (150-450) k/uL MPV 10.7 Neutrophils % 77 % Lymphocytes % 12 % Monocytes % 7 % Eosinophils % 1 % Basophils % 1 % Neutrophils # 6.8 (1.3-7.7) k/uL Lymphocytes # 1.1 (1.0-4.8) k/uL Monocytes # 0.7 (0-1.0) k/uL Eosinophils # 0.1 (0-0.7) k/uL Basophils # 0.1 (0-0.2) k/uL Manual Slide Review Performed RBC Morphology Normal Macrocytosis Marked A Sodium 135 L (137-145) mmol/L Potassium 4.4 (3.5-5.1) mmol/L Chloride 105 (98-107) mmol/L Carbon Dioxide 20 L (22-30) mmol/L Anion Gap 10 mmol/L BUN 10 (9-20) mg/dL Creatinine 0.42 L (0.66-1.25) mg/dL Est GFR (CKD-EPI)AfAm >90 (>60 ml/min/1.73 sqM) Est GFR (CKD-EPI)NonAf >90 (>60 ml/min/1.73 sqM) Glucose 113 H (74-99) mg/dL Plasma Lactic Acid Raul 1.0 (0.7-2.0) mmol/L Calcium 9.1 (8.4-10.2) mg/dL Total Bilirubin 1.7 H (0.2-1.3) mg/dL AST 165 H (17-59) U/L ALT 125 H (4-49) U/L Alkaline Phosphatase 265 H (38-126) U/L Total Protein 8.6 H (6.3-8.2) g/dL Albumin 4.7 (3.5-5.0) g/dL Amylase 52 (30-110) U/L Lipase 227 (23-300) U/L Urine Color Urine Appearance (Clear) Urine pH (5.0-8.0) Ur Specific [place] (1.001-1.035) Urine Protein (Negative) Urine Glucose (UA) (Negative) Urine Ketones (Negative) Urine Blood (Negative) Urine Nitrite (Negative) Urine Bilirubin (Negative) Urine Urobilinogen (<2.0) mg/dL Ur Leukocyte Esterase (Negative) Urine RBC (0-5) /hpf Urine WBC (0-5) /hpf Ur Squamous Epith Cells (0-4) /hpf Urine Bacteria (None) /hpf Hyaline Casts (0-2) /lpf Urine Mucus (None) /hpf Urine Yeast (Budding) (None) /hpf 11/12/23 Range/Units 02:36 WBC (3.8-10.6) k/uL RBC (4.30-5.90) m/uL Hgb (13.0-17.5) gm/dL Hct (39.0-53.0) % MCV (80.0-100.0) fL MCH (25.0-35.0) pg MCHC (31.0-37.0) g/dL RDW (11.5-15.5) % Plt Count (150-450) k/uL MPV Neutrophils % % Lymphocytes % % Monocytes % % Eosinophils % % Basophils % % Neutrophils # (1.3-7.7) k/uL Lymphocytes # (1.0-4.8) k/uL Monocytes # (0-1.0) k/uL Eosinophils # (0-0.7) k/uL Basophils # (0-0.2) k/uL Manual Slide Review RBC Morphology Macrocytosis Sodium (137-145) mmol/L Potassium (3.5-5.1) mmol/L Chloride (98-107) mmol/L Carbon Dioxide (22-30) mmol/L Anion Gap mmol/L BUN (9-20) mg/dL Creatinine (0.66-1.25) mg/dL Est GFR (CKD-EPI)AfAm (>60 ml/min/1.73 sqM) Est GFR (CKD-EPI)NonAf (>60 ml/min/1.73 sqM) Glucose (74-99) mg/dL Plasma Lactic Acid Raul (0.7-2.0) mmol/L Calcium (8.4-10.2) mg/dL Total Bilirubin (0.2-1.3) mg/dL AST (17-59) U/L ALT (4-49) U/L Alkaline Phosphatase (38-126) U/L Total Protein (6.3-8.2) g/dL Albumin (3.5-5.0) g/dL Amylase (30-110) U/L Lipase (23-300) U/L Urine Color Yellow Urine Appearance Clear (Clear) Urine pH 7.0 (5.0-8.0) Ur Specific [place] 1.032 (1.001-1.035) Urine Protein 1+ H (Negative) Urine Glucose (UA) Negative (Negative) Urine Ketones 3+ H (Negative) Urine Blood Negative (Negative) Urine Nitrite Negative (Negative) Urine Bilirubin 1+ H (Negative) Urine Urobilinogen 6.0 (<2.0) mg/dL Ur Leukocyte Esterase Negative (Negative) Urine RBC 1 (0-5) /hpf Urine WBC <1 (0-5) /hpf Ur Squamous Epith Cells <1 (0-4) /hpf Urine Bacteria Rare H (None) /hpf Hyaline Casts 1 (0-2) /lpf Urine Mucus Few H (None) /hpf Urine Yeast (Budding) Rare H (None) /hpf Disposition Clinical Impression: Abdominal pain Disposition: HOME SELF-CARE Condition: Good Instructions (If sedation given, give patient instructions): Abdominal Pain (ED) Additional Instructions: Follow-up with your surgeon at your scheduled appointment. Report back to ER with any new or worsening symptoms. Is patient prescribed a controlled substance at d/c from ED?: No Referrals: Gabe Flynn DO [Primary Care Provider] - 1-2 days Caitlin Pinzon MD [STAFF PHYSICIAN] - 11/15/23 Time of Disposition: 03:18
[2023-11-12 02:48] LABS: Basophils # (A) 0.1 k/uL (0-0.2); Basophils % (A) 1 %; Eosinophils # (A) 0.1 k/uL (0-0.7); Eosinophils % (A) 1 %; HCT 51.8 % (39.0-53.0); HGB 16.6 gm/dL (13.0-17.5); Lymphocytes # (A) 1.1 k/uL (1.0-4.8); Lymphocytes % (A) 12 %; MCH 37.2 pg (25.0-35.0); MCHC 32.1 g/dL (31.0-37.0); Macrocytosis Marked; Mean Platelet Volume 10.7; Monocytes # (A) 0.7 k/uL (0-1.0); Monocytes % (A) 7 %; Neutrophils # (A) 6.8 k/uL (1.3-7.7); Neutrophils % (A) 77 %; Platelet Count 118 k/uL (150-450); RBC 4.46 m/uL (4.30-5.90); RDW 13.6 % (11.5-15.5); WBC 8.9 k/uL (3.8-10.6)
[2023-11-12 02:53] LABS: Appearance,Urine Clear (Clear); Bacteria,Urine Rare /hpf; Bilirubin,Urine 1+ (Negative); Blood,Urine Negative (Negative); Budding Yeast,Urine Rare /hpf; Color,Urine Yellow; Glucose,Urine (UA) Negative (Negative); Hyaline Casts,Urine 1 /lpf (0-2); Ketones,Urine 3+ (Negative); Leukocyte Esterase,Urine Negative (Negative); Mucus,Urine Few /hpf; Nitrite,Urine Negative (Negative); Protein,Urine 1+ (Negative); RBC,Urine 1 /hpf (0-5); Specific Gravity,Urine 1.032 (1.001-1.035); Squamous Epithelial Cell,Urine <1 /hpf (0-4); WBC,Urine <1 /hpf (0-5)
[2023-11-12] MEDS: NICOTINE 21MG/24HR PATCH TRANSDERM STA (03:04)
[2023-11-12] MEDS: ORPHENADRINE 30 MG/ML 2 ML VIAL IVP STA (03:06)
[2023-11-12 03:18] LABS: RBC Morphology Normal
[2023-11-12 04:24] VITALS: BP 147/99; PULSE 79; RESP 18; TEMP 98.7
== END 2023-11-12 03:46 | disposition home or self-care (01) ==
LOC: EC 23:31
DX: R10.9 Unspecified abdominal pain (principal); F17.200 Nicotine dependence, unspecified, uncomplicated
CPT/HCPCS: 36415; 80053; 82150; 83605; 83690; 85025; 81001; 99284; 96374; 96375; S4990; J2360; J1885

== ENCOUNTER → 2024-02-16 | Outpatient (CLI) | payer OTHER ==
[2024-02-16 18:20] LABS: Basophils # (A) 0.04 X 10*3/uL (0.00-0.10); Basophils % (A) 0.4 %; Eosinophils % (A) 1.1 %; HCT 41.2 % (39.6-50.0); HGB 13.8 g/dL (13.0-17.0); Lymphocytes # (A) 1.38 X 10*3/uL (0.90-5.00); Lymphocytes % (A) 15.2 %; MCHC 33.5 g/dL (32.0-37.0); MCV 107.6 FL (80.0-97.0); Mean Platelet Volume 11.2 FL (9.5-12.2); Monocytes # (A) 0.85 X 10*3/uL (0.20-1.00); Monocytes % (A) 9.4 %; NRBC Per 100 WBC 0 X 10*3/uL (0.00-0.01); Neutrophils # (A) 6.64 X 10*3/uL (1.80-7.70); Neutrophils % (A) 73.5 %; Platelet Count 106 X 10*3/uL (140-440); RBC 3.83 X 10*6/uL (4.40-5.60); RDW 12.3 % (11.5-14.5); WBC 9.05 X 10*3/uL (4.50-10.00)
[2024-02-16 18:34] LABS: Protein, Total 7.4 g/dL (6.2-8.2)
[2024-02-16 18:43] LABS: Iron 55 UG/DL (65-175); Total Iron Binding Capacity 288 UG/DL (228-460)
[2024-02-16 18:45] LABS: Alpha Fetoprotein, Tumor Mkr <3.00 ng/mL (0.00-7.90)
[2024-02-16 18:54] LABS: ALT 61 U/L (10-49); AST 163 U/L (14-35); Albumin/Globulin Ratio 1.11 Ratio (1.60-3.17); Alkaline Phosphatase 403 U/L (41-126); BUN/Creat Ratio <5.83 Ratio (12.00-20.00); Blood Urea Nitrogen <3.5 mg/dL (9.0-27.0); Calcium 9.2 mg/dL (8.7-10.3); Carbon Dioxide 22.2 mmol/L (21.6-31.8); Chloride 91 mmol/L (96-109); Globulin 3.6 g/dL (1.6-3.3); Glucose 542 mg/dL (70-110); Potassium 3.4 mmol/L (3.5-5.5); Sodium 130 mmol/L (135-145); Total Protein 7.6 g/dL (6.2-8.2)
[2024-02-16 19:08] LABS: Hepatitis B Surface Antigen Nonreactive (Nonreactive); Hepatitis C IgG Antibody Nonreactive (Nonreactive)
[2024-02-16 19:36] LABS: Ceruloplasmin 42.8 mg/dL (20.0-60.0)
[2024-02-19 16:48] LABS: Albumin 3.77 g/dL (3.80-4.90); Gamma Globulin 1.55 g/dL (0.70-1.50)
[2024-02-23 18:22] LABS: ANA Pattern Speckled
== END | disposition home or self-care (01) ==
LOC: LABWHC1 12:34
PROVIDERS: ATTEND Internal Medicine Gastroenterology
DX: K74.60 Unspecified cirrhosis of liver (principal)
CPT/HCPCS: 36415; 80053; 82103; 82105; 82390; 82728; 83516; 83540; 83550; 84165; 85025; 86038; 86039; 86803; 87340

== ENCOUNTER 2024-02-20 11:39 | Observation (INO) | payer OTHER ==
[2024-02-20 12:14] LABS: Glucose,Whole Blood 483 mg/dL (70-110)
--- NOTE | 2024-02-20 12:43 | ED ---
General Adult HPI - General Chief complaint: Recheck/Abnormal Lab/Rx Stated complaint: Glucose check Time Seen by Provider: 02/20/24 12:02 Source: patient, RN notes reviewed Mode of arrival: ambulatory Limitations: no limitations - History of Present Illness Initial comments: Patient is a 33-year-old male present to the emergency department with concerns for high blood sugar. Patient did go to the doctor end of the week and they did blood work. Blood sugar was found to be high. Patient states they just notified him today however they said they were trying to notify him prior to this. No history of diabetes. Patient does have known history of liver disease secondary to alcohol use. - Related Data Home Medications Medication Instructions Recorded Confirmed Pantoprazole [Protonix] 40 mg PO DAILY 09/22/23 02/20/24 Folic Acid 1 mg PO DAILY 02/20/24 02/20/24 cloNIDine HCL [Catapres] 0.1 mg PO DAILY 02/20/24 02/20/24 Previous Rx's Medication Instructions Recorded Thiamine [Vitamin B-1] 100 mg PO DAILY #30 tab 09/30/23 Allergies Allergy/AdvReac Type Severity Reaction Status Date / Time No Known Allergies Allergy Verified 02/20/24 11:49 Review of Systems ROS Statement: Those systems with pertinent positive or pertinent negative responses have been documented in the HPI. ROS Other: All systems not noted in ROS Statement are negative. Constitutional: Denies: fever Eyes: Denies: eye pain ENT: Denies: ear pain Respiratory: Denies: dyspnea Cardiovascular: Denies: chest pain Endocrine: Reports: polydipsia, polyuria Gastrointestinal: Denies: abdominal pain, vomiting Neurological: Denies: weakness Past Medical History Past Medical History: Hypertension Additional Past Medical History / Comment(s): Nephrolithiasis, ETOH abuse with past withdrawal tremors, past alcoholic hepatitis/acute severe kidney injury/hyperphosphatemia/acute metabolic encephalopathy from renal failure. History of Any Multi-Drug Resistant Organisms: None Reported Past Surgical History: Cholecystectomy, Tonsillectomy Past Anesthesia/Blood Transfusion Reactions: No Reported Reaction Past Psychological History: No Psychological Hx Reported Smoking Status: Current every day smoker Past Alcohol Use History: Abuse, Daily, Heavy Past Drug Use History: Cocaine, Marijuana - Past Family History Father Family Medical History: Myocardial Infarction ([place]) Mother Family Medical History: Hypertension Additional Family Medical History / Comment(s): heart stent General Exam Limitations: no limitations General appearance: alert, in no apparent distress Head exam: Present: normocephalic Eye exam: Present: normal appearance ENT exam: Present: mucous membranes dry Neck exam: Present: normal inspection Respiratory exam: Present: normal lung sounds bilaterally Cardiovascular Exam: Present: regular rate, normal rhythm GI/Abdominal exam: Present: soft. Absent: tenderness Extremities exam: Present: normal inspection Neurological exam: Present: alert Psychiatric exam: Present: normal affect, normal mood Skin exam: Present: normal color Course Vital Signs 02/20/24 02/20/24 11:46 12:05 Temperature 98.2 F Pulse Rate 11 L 107 H Respiratory 18 18 Rate Blood Pressure 158/94 159/89 O2 Sat by Pulse 96 95 Oximetry EKG Findings - EKG Results: EKG: interpreted by GIRISH, sinus rhythm, normal axis, normal QRS, normal ST/T EKG shows: tachycardia Medical Decision Making - Medical Decision Making Was pt. sent in by a medical professional or institution (, PA, TRIBAL DELEGATE, urgent care, hospital, or long term...) When possible be specific @ -Patient was sent in by primary care physician Did you speak to anyone other than the patient for history (EMS, parent, family, police, friend...)? What history was obtained from this source @ -No Did you review nursing and triage notes (agree or disagree)? Why? @ -I reviewed and agree with nursing and triage notes Were old charts reviewed (outside hosp., previous admission, EMS record, old EKG, old radiological studies, urgent care reports/EKG's, long term records)? Report findings @ -No old charts were reviewed Differential Diagnosis (chest pain, altered mental status, abdominal pain women, abdominal pain men, vaginal bleeding, weakness, fever, dyspnea, syncope, headache, dizziness, GI bleed, back pain, seizure, CVA, palpatations, mental health, musculoskeletal)? @ -Differential weakness differential Weakness: Hypoglycemia, shock, sepsis, hyponatremia, anemia, infection, [place], ETOH, adverse medicine reaction, overdose, stroke, this is not meant to be an all-inclusive list. EKG interpreted by me (3pts min.). @ -As above X-rays interpreted by me (1pt min.). @ -None done CT interpreted by me (1pt min.). @ -None done U/S interpreted by me (1pt. min.). @ -None done What testing was considered but not performed or refused? (CT, X-rays, U/S, labs)? Why? @ -None What meds were considered but not given or refused? Why? @ -Insulin, will be added to inpatient order Did you discuss the management of the patient with other professionals (professionals i.e. DrPatricio, PA, [employer] DELEGATE, lab, RT, psych nurse, psychologist social, make up operator helper, teacher, special technical operations officer, watch case polisher)? Give summary @ -Case was discussed with Dr. Moreno as no who will admit covering Dr. Fisher Was smoking cessation discussed for >3mins.? @ -No Was critical care preformed (if so, how long)? @ -No Were there social determinants of health that impacted care today? How? (Homelessness, low income, unemployed, alcoholism, drug addiction, transportation, low edu. Level, literacy, decrease access to med. care, [facility], rehab)? @ -No Was there de-escalation of care discussed even if they declined (Discuss DNR or withdrawal of care, Hospice)? DNR status @ -No What co-morbidities impacted this encounter? (DM, HTN, Smoking, COPD, CAD, Cancer, CVA, ARF, Chemo, Hep., AIDS, mental health diagnosis, sleep apnea, morbid obesity)? @ -History of alcoholism and chronic liver disease Was patient admitted / discharged? Hospital course, mention meds given and route, prescriptions, significant lab abnormalities, going to OR and other pertinent info. @ -Patient presents with new onset diabetes. Patient provided fluids. Patient will be admitted with insulin, admission orders written Undiagnosed new problem with uncertain prognosis? @ -No Drug Therapy requiring intensive monitoring for toxicity (Heparin, Nitro, Insulin, Cardizem)? @ -No Were any procedures done? @ -No Diagnosis/symptom? @ -Hyperglycemia, new onset diabetes Acute, or Chronic, or Acute on Chronic? @ -Acute, acute Uncomplicated (without systemic symptoms) or Complicated (systemic symptoms)? @ -Default Side effects of treatment? @ -No Exacerbation, Progression, or Severe Exacerbation? @ -No Poses a threat to life or bodily function? How? (Chest pain, [place], [place], pneumonia, PE, COPD, DKA, ARF, appy, cholecystitis, CVA, Diverticulitis, Homicidal, Suicidal, threat to staff... and all critical care pts) @ -No - Lab Data Result diagrams: 02/20/24 13:08 02/20/24 13:08 Lab Results 02/20/24 02/20/24 02/20/24 Range/Units 12:12 13:08 13:08 WBC 10.0 (3.8-10.6) k/uL RBC 3.69 L (4.30-5.90) m/uL Hgb 13.5 (13.0-17.5) gm/dL Hct 41.3 (39.0-53.0) % MCV 112.1 H (80.0-100.0) fL MCH 36.6 H (25.0-35.0) pg MCHC 32.7 (31.0-37.0) g/dL RDW 12.7 (11.5-15.5) % Plt Count 121 L (150-450) k/uL MPV 9.8 Macrocytosis Marked A PT 15.0 H (10.0-12.5) sec INR 1.4 H (<1.2) APTT 27.4 (22.0-30.0) sec Sodium (137-145) mmol/L Potassium (3.5-5.1) mmol/L Chloride (98-107) mmol/L Carbon Dioxide (22-30) mmol/L Anion Gap mmol/L BUN (9-20) mg/dL Creatinine (0.66-1.25) mg/dL Est GFR (CKD-EPI)AfAm (>60 ml/min/1.73 sqM) Est GFR (CKD-EPI)NonAf (>60 ml/min/1.73 sqM) Glucose (74-99) mg/dL POC Glucose (mg/dL) 483 H (70-110) mg/dL POC Glu Biodiesel Processing Technician ID November, Plasma Lactic Acid Raul (0.7-2.0) mmol/L Calcium (8.4-10.2) mg/dL Magnesium (1.6-2.3) mg/dL Total Bilirubin (0.2-1.3) mg/dL AST (17-59) U/L ALT (4-49) U/L Alkaline Phosphatase (38-126) U/L Troponin I (0.000-0.034) ng/mL Total Protein (6.3-8.2) g/dL Albumin (3.5-5.0) g/dL Urine Color Urine Appearance (Clear) Urine pH (5.0-8.0) Ur Specific [place] (1.001-1.035) Urine Protein (Negative) Urine Glucose (UA) (Negative) Urine Ketones (Negative) Urine Blood (Negative) Urine Nitrite (Negative) Urine Bilirubin (Negative) Urine Urobilinogen (<2.0) mg/dL Ur Leukocyte Esterase (Negative) Serum Alcohol mg/dL Acetone, Qual (Negative) 02/20/24 02/20/24 02/20/24 Range/Units 13:08 13:08 13:08 WBC (3.8-10.6) k/uL RBC (4.30-5.90) m/uL Hgb (13.0-17.5) gm/dL Hct (39.0-53.0) % MCV (80.0-100.0) fL MCH (25.0-35.0) pg MCHC (31.0-37.0) g/dL RDW (11.5-15.5) % Plt Count (150-450) k/uL MPV Macrocytosis PT (10.0-12.5) sec INR (<1.2) APTT (22.0-30.0) sec Sodium 132 L (137-145) mmol/L Potassium 4.0 (3.5-5.1) mmol/L Chloride 92 L (98-107) mmol/L Carbon Dioxide 24 (22-30) mmol/L Anion Gap 16 mmol/L BUN 4 L (9-20) mg/dL Creatinine 0.40 L (0.66-1.25) mg/dL Est GFR (CKD-EPI)AfAm >90 (>60 ml/min/1.73 sqM) Est GFR (CKD-EPI)NonAf >90 (>60 ml/min/1.73 sqM) Glucose 439 H (74-99) mg/dL POC Glucose (mg/dL) (70-110) mg/dL POC Glu Biodiesel Processing Technician ID Plasma Lactic Acid Raul 1.6 (0.7-2.0) mmol/L Calcium 9.1 (8.4-10.2) mg/dL Magnesium 1.7 (1.6-2.3) mg/dL Total Bilirubin 3.3 H (0.2-1.3) mg/dL AST 143 H (17-59) U/L ALT 52 H (4-49) U/L Alkaline Phosphatase 431 H (38-126) U/L Troponin I (0.000-0.034) ng/mL Total Protein 7.5 (6.3-8.2) g/dL Albumin 3.9 (3.5-5.0) g/dL Urine Color Colorless Urine Appearance Clear (Clear) Urine pH 6.5 (5.0-8.0) Ur Specific [place] 1.034 (1.001-1.035) Urine Protein Negative (Negative) Urine Glucose (UA) 4+ H (Negative) Urine Ketones Negative (Negative) Urine Blood Negative (Negative) Urine Nitrite Negative (Negative) Urine Bilirubin Negative (Negative) Urine Urobilinogen <2.0 (<2.0) mg/dL Ur Leukocyte Esterase Negative (Negative) Serum Alcohol 65 mg/dL Acetone, Qual Negative (Negative) 02/20/24 Range/Units 13:08 WBC (3.8-10.6) k/uL RBC (4.30-5.90) m/uL Hgb (13.0-17.5) gm/dL Hct (39.0-53.0) % MCV (80.0-100.0) fL MCH (25.0-35.0) pg MCHC (31.0-37.0) g/dL RDW (11.5-15.5) % Plt Count (150-450) k/uL MPV Macrocytosis PT (10.0-12.5) sec INR (<1.2) APTT (22.0-30.0) sec Sodium (137-145) mmol/L Potassium (3.5-5.1) mmol/L Chloride (98-107) mmol/L Carbon Dioxide (22-30) mmol/L Anion Gap mmol/L BUN (9-20) mg/dL Creatinine (0.66-1.25) mg/dL Est GFR (CKD-EPI)AfAm (>60 ml/min/1.73 sqM) Est GFR (CKD-EPI)NonAf (>60 ml/min/1.73 sqM) Glucose (74-99) mg/dL POC Glucose (mg/dL) (70-110) mg/dL POC Glu Biodiesel Processing Technician ID Plasma Lactic Acid Raul (0.7-2.0) mmol/L Calcium (8.4-10.2) mg/dL Magnesium (1.6-2.3) mg/dL Total Bilirubin (0.2-1.3) mg/dL AST (17-59) U/L ALT (4-49) U/L Alkaline Phosphatase (38-126) U/L Troponin I <0.012 (0.000-0.034) ng/mL Total Protein (6.3-8.2) g/dL Albumin (3.5-5.0) g/dL Urine Color Urine Appearance (Clear) Urine pH (5.0-8.0) Ur Specific [place] (1.001-1.035) Urine Protein (Negative) Urine Glucose (UA) (Negative) Urine Ketones (Negative) Urine Blood (Negative) Urine Nitrite (Negative) Urine Bilirubin (Negative) Urine Urobilinogen (<2.0) mg/dL Ur Leukocyte Esterase (Negative) Serum Alcohol mg/dL Acetone, Qual (Negative) Disposition Clinical Impression: Hyperglycemia Disposition: ADMITTED IP TO THIS HOSP Is patient prescribed a controlled substance at d/c from ED?: No Referrals: Gabe Flynn DO [Primary Care Provider] - 1-2 days Time of Disposition: 14:26
[2024-02-20] MEDS: SODIUM CHLORIDE 0.9% 1,000 ML IV STA (13:18)
[2024-02-20 13:21] LABS: Basophils % (A) 0 %; Eosinophils # (A) 0.2 k/uL (0-0.7); Eosinophils % (A) 2 %; HCT 41.3 % (39.0-53.0); HGB 13.5 gm/dL (13.0-17.5); Lymphocytes # (A) 1.4 k/uL (1.0-4.8); Lymphocytes % (A) 14 %; MCH 36.6 pg (25.0-35.0); MCHC 32.7 g/dL (31.0-37.0); MCV 112.1 fL (80.0-100.0); Macrocytosis Marked; Mean Platelet Volume 9.8; Monocytes # (A) 0.5 k/uL (0-1.0); Monocytes % (A) 5 %; Neutrophils # (A) 7.6 k/uL (1.3-7.7); Neutrophils % (A) 76 %; Platelet Count 121 k/uL (150-450); RBC 3.69 m/uL (4.30-5.90); RDW 12.7 % (11.5-15.5)
[2024-02-20 13:34] LABS: INR 1.4 (<1.2); Partial Thromboplastin Time 27.4 sec (22.0-30.0)
[2024-02-20 13:39] LABS: Appearance,Urine Clear (Clear); Bilirubin,Urine Negative (Negative); Blood,Urine Negative (Negative); Color,Urine Colorless; Glucose,Urine (UA) 4+ (Negative); Ketones,Urine Negative (Negative); Leukocyte Esterase,Urine Negative (Negative); Nitrite,Urine Negative (Negative); PH, Urine 6.5 (5.0-8.0); Protein,Urine Negative (Negative); Specific Gravity,Urine 1.034 (1.001-1.035); Urobilinogen,Urine <2.0 mg/dL (<2.0)
[2024-02-20 13:48] LABS: ALT 52 U/L (4-49); AST 143 U/L (17-59); African American GFR (CKD) >90 (>60 ml/min/1.73 sqM); Albumin 3.9 g/dL (3.5-5.0); Alcohol 65 mg/dL; Alkaline Phosphatase 431 U/L (38-126); Anion Gap 16 mmol/L; Blood Urea Nitrogen 4 mg/dL (9-20); Calcium 9.1 mg/dL (8.4-10.2); Carbon Dioxide 24 mmol/L (22-30); Chloride 92 mmol/L (98-107); Glucose 439 mg/dL (74-99); Magnesium 1.7 mg/dL (1.6-2.3); Non-African American GFR(CKD) >90 (>60 ml/min/1.73 sqM); Sodium 132 mmol/L (137-145); Total Bilirubin 3.3 mg/dL (0.2-1.3); Total Protein 7.5 g/dL (6.3-8.2)
[2024-02-20] MEDS ORDERED: DEXTROSE 50% SYRINGE 50 ML IVP PRN ×2 (14:28)
[2024-02-20] MEDS ORDERED: LORazepam 0.5 MG TAB PO PRN (14:29)
[2024-02-20] MEDS ORDERED: LORazepam 2 MG/ML INJ IV PRN ×4 (14:29→14:49)
[2024-02-20] MEDS ORDERED: LORazepam 1 MG TAB PO PRN ×3 (14:29)
[2024-02-20] MEDS ORDERED: NALOXONE 0.4 MG/ML 1 ML VIAL IV PRN (14:30)
--- NOTE | 2024-02-20 14:53 | P.HPIM ---
History of Present Illness 33-year-old male came in with complaints of elevated blood sugars. Patient blood sugars were in 600s and presently around 500 patient does not have any metabolic acidosis patient serum bicarbonate is 24. But the patient does have anion gap of 16 I do not have any lactic acid available at this time. Will obtain lactic acid levels. Patient is an alcoholic he says he quit alcohol a while ago but patient serum alcohol is around 65 patient does have cirrhosis with umbilical hernia and Recommend using. Patient's INR is 1.4 consistent with cirrhosis patient is hyponatremic but hypervolemic secondary to cirrhosis. Patient does have elevated AST and ALT, AST 143 and ALT is 52 REVIEW OF SYSTEMS: All other systems are negative except those mentioned in the HPI PHYSICAL EXAMINATION: GENERAL: The patient is alert and oriented x3, not in any acute distress. Well developed, well nourished. HEENT: Pupils are round and equally reacting to light. EOMI. No scleral icterus. No conjunctival pallor. Normocephalic, atraumatic. No pharyngeal erythema. No thyromegaly. CARDIOVASCULAR: S1 and S2 present. No murmurs, rubs, or gallops. PULMONARY: Chest is clear to auscultation, no wheezing or crackles. ABDOMEN: Distended nontender with shifting dullness, normoactive bowel sounds. No palpable organomegaly. MUSCULOSKELETAL: No joint swelling or deformity. EXTREMITIES: No cyanosis, clubbing, or pedal edema. NEUROLOGICAL: Gross neurological examination did not reveal any focal deficits. SKIN: No rashes. Assessment and plan -Hyperglycemia probably noon new onset diabetes mellitus, I believe patient has insulin deficiency from pancreatic insufficiency from his chronic alcohol use. Patient will be started on long-acting insulin 20 units along with sliding scale will titrate insulin as per his sliding scale requirements. Will obtain hemoglobin A1c --Hypervolemic hyponatremia: Patient will be started on IV Lasix will add Aldactone depending on his potassium level. This is secondary to cirrhosis. Therapeutic paracentesis, patient does not have any SBP at this time -Cirrhosis with a competent of acute alcoholic hepatitis, will also obtain ammonia levels -Alcohol abuse: Counseling was provided Alcohol withdrawal patient will be on Ativan CIWA protocol patient denied using alcohol recently but patient has serum alcohol level is elevated -Anion gap metabolic acidosis secondary to alcoholism and probably lactic acidosis will obtain lactic acid levels and this lactic acidosis is probably secondary to liver failure -Hypertension DVT prophylaxis: Patient is already anticoagulated with INR of 1.4 in early amb Past Medical History Past Medical History: Hypertension Additional Past Medical History / Comment(s): Nephrolithiasis, ETOH abuse with past withdrawal tremors, past alcoholic hepatitis/acute severe kidney injury/hyp erphosphatemia/acute metabolic encephalopathy from renal failure. History of Any Multi-Drug Resistant Organisms: None Reported Past Surgical History: Cholecystectomy, Tonsillectomy Past Anesthesia/Blood Transfusion Reactions: No Reported Reaction Past Psychological History: No Psychological Hx Reported Smoking Status: Current every day smoker Past Alcohol Use History: Abuse, Daily, Heavy Past Drug Use History: Cocaine, Marijuana - Past Family History Father Family Medical History: Myocardial Infarction ([place]) Mother Family Medical History: Hypertension Additional Family Medical History / Comment(s): heart stent Medications and Allergies Home Medications Medication Instructions Recorded Confirmed Type Pantoprazole [Protonix] 40 mg PO DAILY 09/22/23 02/20/24 History Thiamine [Vitamin B-1] 100 mg PO DAILY #30 tab 09/30/23 02/20/24 Rx Folic Acid 1 mg PO DAILY 02/20/24 02/20/24 History cloNIDine HCL [Catapres] 0.1 mg PO DAILY 02/20/24 02/20/24 History Allergies Allergy/AdvReac Type Severity Reaction Status Date / Time No Known Allergies Allergy Verified 02/20/24 11:49 Physical Exam Vitals: Vital Signs Temp Pulse Resp BP Pulse Ox 02/20/24 12:05 107 H 18 159/89 95 02/20/24 11:46 98.2 F 11 L 18 158/94 96 Intake and Output 02/19/24 02/20/24 02/20/24 22:59 06:59 14:59 Other: Weight 97.522 kg Results CBC & Chem 7: 02/20/24 13:08 02/20/24 13:08 Labs: Abnormal Lab Results - Last 24 Hours (Table) 02/20/24 02/20/24 02/20/24 Range/Units 12:12 13:08 13:08 RBC 3.69 L (4.30-5.90) m/uL MCV 112.1 H (80.0-100.0) fL MCH 36.6 H (25.0-35.0) pg Plt Count 121 L (150-450) k/uL Macrocytosis Marked A PT 15.0 H (10.0-12.5) sec INR 1.4 H (<1.2) Sodium (137-145) mmol/L Chloride (98-107) mmol/L BUN (9-20) mg/dL Creatinine (0.66-1.25) mg/dL Glucose (74-99) mg/dL POC Glucose (mg/dL) 483 H (70-110) mg/dL Total Bilirubin (0.2-1.3) mg/dL AST (17-59) U/L ALT (4-49) U/L Alkaline Phosphatase (38-126) U/L Urine Glucose (UA) (Negative) 02/20/24 02/20/24 Range/Units 13:08 13:08 RBC (4.30-5.90) m/uL MCV (80.0-100.0) fL MCH (25.0-35.0) pg Plt Count (150-450) k/uL Macrocytosis PT (10.0-12.5) sec INR (<1.2) Sodium 132 L (137-145) mmol/L Chloride 92 L (98-107) mmol/L BUN 4 L (9-20) mg/dL Creatinine 0.40 L (0.66-1.25) mg/dL Glucose 439 H (74-99) mg/dL POC Glucose (mg/dL) (70-110) mg/dL Total Bilirubin 3.3 H (0.2-1.3) mg/dL AST 143 H (17-59) U/L ALT 52 H (4-49) U/L Alkaline Phosphatase 431 H (38-126) U/L Urine Glucose (UA) 4+ H (Negative)
[2024-02-20 15:39] LABS: Lactic Acid, Venous 1.3 mmol/L (0.7-2.0)
[2024-02-20 15:46] LABS: Glucose,Whole Blood 268 mg/dL (70-110)
[2024-02-20] MEDS: SODIUM CHLORIDE 0.9% 1,000 ML IV SCH (15:48)
[2024-02-20] MEDS: INSULIN DETEMIR (LEVEMIR) 100 UNIT/ML SYR SQ SCH (16:22)
[2024-02-20 18:24] LABS: Glucose,Whole Blood 298 mg/dL (70-110)
[2024-02-20] MEDS: INSULIN ASPART (NovoLOG) 100 UNIT/ML VIAL SQ SCH (18:35)
[2024-02-20 21:03] LABS: Glucose,Whole Blood 240 mg/dL (70-110)
[2024-02-20] MEDS: FUROSEMIDE 10 MG/ML 4 ML VIAL IV SCH (21:13)
--- NOTE | 2024-02-20 22:06 | XR ---
EXAMINATION TYPE: XR ankle limited LT DATE OF EXAM: 02/20/2024 9:58 PM CLINICAL INDICATION: Male, 33 years old with history of redness and swelling; COMPARISON: None TECHNIQUE: XR ankle limited LT; ankle is imaged in frontal, lateral and oblique projections. FINDINGS: There is no evidence of acute osseous pathology. No evidence of subluxation or dislocation. Kager's fat pad is intact. Mild soft tissue swelling around the ankle. No radiopaque foreign bodies are ident ified. No evidence of osseous erosion to suggest osteomyelitis. IMPRESSION: 1. No evidence of acute fracture. 2. Subcutaneous swelling around the ankle no evidence for osseous erosion or subcutaneous gas. Correl ate for cellulitis.
[2024-02-20] MEDS: KETOROLAC 15 MG/ML 1 ML VIAL IVP PRN (22:27)
[2024-02-20] MEDS: cloNIDine HCL 0.1 MG TAB PO SCH (22:28)
[2024-02-20] MEDS: NICOTINE 21MG/24HR PATCH TRANSDERM SCH (22:28)
[2024-02-21] MEDS ORDERED: KETOROLAC 15 MG/ML 1 ML VIAL IVP SCH
[2024-02-21 05:51] LABS: Glucose,Whole Blood 207 mg/dL (70-110)
[2024-02-21] MEDS: PANTOPRAZOLE 40 MG TABLET PO SCH (06:29)
--- NOTE | 2024-02-21 08:20 | US ---
EXAMINATION TYPE: US abdomen limited DATE OF EXAM: 02/20/2024 COMPARISON: NONE CLINICAL INDICATION: Male, 33 years old with history of ascites, distention Safety Council Director notes: The 4 quadrants were scanned, ascites seen in RUQ, RLQ, and LLQ IMPRESSION: Images show only mild abdominal ascites. Not enough for safe therapeutic paracentesis.
[2024-02-21] MEDS: THIAMINE 100 MG TAB PO SCH (08:47)
[2024-02-21] MEDS: FOLIC ACID 1 MG TAB PO SCH (08:47)
[2024-02-21 08:50] LABS: Lipase 43 U/L (14-60)
[2024-02-21 08:54] LABS: Blood Urea Nitrogen 5.4 mg/dL (9.0-27.0); Calcium 8.7 mg/dL (8.7-10.3); Carbon Dioxide 26.8 mmol/L (21.6-31.8); Chloride 94 mmol/L (96-109); Glucose 179 mg/dL (70-110); Potassium 3.4 mmol/L (3.5-5.5); Sodium 133 mmol/L (135-145)
[2024-02-21] MEDS: lisinopriL 10 MG TAB PO SCH (10:42)
[2024-02-21] MEDS: POTASSIUM CHLORIDE ER 20 MEQ TAB.ER PO STA ×2 (10:42)
[2024-02-21 12:10] LABS: Glucose,Whole Blood 286 mg/dL (70-110)
[2024-02-21] MEDS: INSULIN ASPART (NovoLOG) 100 UNIT/ML VIAL SQ SCH (12:27)
[2024-02-21 14:19] VITALS: BP 138/80; PULSE 98; RESP 16; TEMP 98.5
--- NOTE | 2024-02-22 15:07 | P.DS ---
Providers Date of admission: 02/20/24 14:34 Attending physician: Giovana Dailey Primary care physician: Gabe Gee [facility] Course: Final Diagnosis -Hyperglycemia probably noon new onset diabetes mellitus, I believe patient has insulin deficiency from pancreatic insufficiency from his chronic alcohol use. --Hypervolemic hyponatremia: Patient will be started on IV Lasix will add Aldactone depending on his potassium level. This is secondary to cirrhosis. -Cirrhosis with a competent of acute alcoholic hepatitis, will also obtain ammonia levels -Alcohol abuse: Counseling was provided Alcohol withdrawal patient will be on Ativan CIWA protocol patient denied using alcohol recently but patient has serum alcohol level is elevated -Anion gap metabolic acidosis secondary to alcoholism and probably lactic acidosis will obtain lactic acid levels and this lactic acidosis is probably secondary to liver failure -Hypertension DVT prophylaxis: Patient is already anticoagulated with INR of 1.4 in early ambulation Discharge Disposition Able for discharge home. Patient will benefit from outpatient diabetic education. He is given a glucometer instructed to check his blood sugar and bring log to follow-up at his appoint with his primary care provider. Hospital Course 33-year-old male came in with complaints of elevated blood sugars. Patient blood sugars were in 600s and presently around 500 patient does not have any metabolic acidosis patient serum bicarbonate is 24. But the patient does have anion gap of 16 I do not have any lactic acid available at this time. Will obtain lactic acid levels. Patient is an alcoholic he says he quit alcohol a while ago but patient serum alcohol is around 65 patient does have cirrhosis with umbilical hernia and Recommend using. Patient's INR is 1.4 consistent with cirrhosis patient is hyponatremic but hypervolemic secondary to cirrhosis. Patient does have elevated AST and ALT, AST 143 and ALT is 52. Admitted and evaluated on the medical floor. Interventional radiology was consulted for possible thoracentesis secondary to the ascites however after reviewing the abdominal imaging they felt that the ascites is mild and not enough to complete a thoracentesis. Patient was started on long-acting and sliding scale insulin. His hemoglobin A1c was found to be significantly elevated at 10.4. His blood glucose is now down to 200s. Sodium level is 133, potassium 3.4, BUN of 5.4, creatinine of 0.6. Patient is awake alert oriented he is not appearing to be go for any alcohol withdrawal at this time. He has not required any Ativan. He will be discharged home he is given a glucometer instructed to check his blood sugar before meals and at bedtime to keep a log and follow-up with his PCP. We given Lantus 30 units subcu daily as well as starting lisinopril for his blood pressure and increased dose of clonidine and Aldactone. Will continue on Lasix. Patient to follow-up with his PCP Dr. Frank Slater as well as Dr. Aleta Nunez. To repeat a CMP in 2 to 3 days. Please see medication reconciliation for a list of current medications. Thank you for allowing us to participate in the care of this patient. The impression and plan of care has been dictated by Racheal Marroquin, Nurse Practitioner as directed. Dr. Asim MD I have performed a history and physical examination and medical decision making of this patient, discussed the same with the dictator, and agree with the dictators assessment and plan as written, documented as a scribe. Based on total visit time, I have performed more than 50% of this visit. Patient Condition at Discharge: Fair Plan - Discharge Summary New Discharge Prescriptions: New cloNIDine HCL [Catapres] 0.1 mg PO BID #60 tab Spironolactone [Aldactone] 25 mg PO DAILY #30 tablet Insulin Glargine,Hum.rec.anlog [Lantus Solostar Pen] 30 units SQ DAILY #1 each Furosemide [Lasix] 20 mg PO DAILY #30 tab lisinopriL [Zestril] 10 mg PO DAILY #30 tab Continue Thiamine [Vitamin B-1] 100 mg PO DAILY #30 tab Pantoprazole [Protonix] 40 mg PO DAILY Folic Acid 1 mg PO DAILY Discontinued cloNIDine HCL [Catapres] 0.1 mg PO DAILY Discharge Medication List Pantoprazole [Protonix] 40 mg PO DAILY 09/22/23 [History] Thiamine [Vitamin B-1] 100 mg PO DAILY #30 tab 09/30/23 [Rx] Folic Acid 1 mg PO DAILY 02/20/24 [History] Furosemide [Lasix] 20 mg PO DAILY #30 tab 02/21/24 [Rx] Insulin Glargine,Hum.rec.anlog [Lantus Solostar Pen] 30 units SQ DAILY #1 each 02/21/24 [Rx] Spironolactone [Aldactone] 25 mg PO DAILY #30 tablet 02/21/24 [Rx] cloNIDine HCL [Catapres] 0.1 mg PO BID #60 tab 02/21/24 [Rx] lisinopriL [Zestril] 10 mg PO DAILY #30 tab 02/21/24 [Rx] Follow up Appointment(s)/Referral(s): Gabe Flynn DO [Primary Care Provider] - 1-2 days Alondra Lockett NPC [REFERRING] - 1 Week Ida Ross MD [STAFF PHYSICIAN] - 1 Week Ambulatory/Diagnostic Orders: Comprehensive Metabolic Panel [LAB.AMB] Time Frame: 3 Days, Location: None Selected Patient Instructions/Handouts: Type 2 Diabetes in Adults: New Diagnosis (GEN), Diabetes and Nutrition (ED) Activity/Diet/Wound Care/Special Instructions: Check blood glucose before meals and at bedtime keep a log for follow up with your PCP. Long acting insulin lantus to be taken once daily in the AM. Avoid alcohol. Continue blood pressure medications as prescribed from this hospital stay. Follow up with PCP in 1 to 2 days and also follow up with Dr. Brenda Ross for your liver. To Shubham wrap and ice to the left lower extremity Discharge/Stand Alone Forms: AA Meetings [address] - [facility], AA Meetings [place], Who Do I Call?, Community Resources, Outpatient Counseling, In Substance Abuse Facilities Discharge Disposition: HOME SELF-CARE
== END 2024-02-21 16:15 | disposition home or self-care (01) ==
LOC: EC 11:39 → 6NMEDSUR 14:34
PROVIDERS: ADMIT Internal Medicine; ATTEND Internal Medicine
DX: R73.9 Hyperglycemia, unspecified (principal); E87.1 Hypo-osmolality and hyponatremia; K70.10 Alcoholic hepatitis without ascites; E87.20 Acidosis, unspecified; F10.230 Alcohol dependence with withdrawal, uncomplicated; I10 Essential (primary) hypertension; F17.200 Nicotine dependence, unspecified, uncomplicated; Y90.3 Blood alcohol level of 60-79 mg/100 ml; Z79.4 Long term (current) use of insulin; Z79.899 Other long term (current) drug therapy
CPT/HCPCS: 36415; 76705; 80048; 80053; 80320; 81003; 82009; 82140; 83036; 83605; 83615; 83690; 83735; 84484; 85025; 85610; 85730; 93005; 96361; 96374; 96375; 99285

== ENCOUNTER 2024-03-08 11:48 | Inpatient (IN) | payer OTHER ==
--- NOTE | 2024-03-08 12:27 | ED ---
GI Bleed HPI - General Chief complaint: GI Bleed Stated complaint: Blood in stool Time Seen by Provider: 03/08/24 12:08 Source: patient, RN notes reviewed Mode of arrival: ambulatory Limitations: no limitations - History of Present Illness Initial comments: 33-year-old male with history of cirrhosis, renal disease, hypertension, diabetes, and hemorrhoids presenting the ER with chief complaint of rectal bleeding x 4 days. States initially he was having small amount of bright red blood in the stool and painful bowel movements. He was seen by his PCP 2 days ago where they told him he had a hemorrhoid, gave him suppositories and a cream which patient has been using with little relief. States today it has progressed to bright red blood filling up the toilet bowl. Admits rectal pain with bowel movement. Denies abdominal pain, vomiting, hematemesis. Denies any urinary symptoms. States he takes insulin for his diabetes. Denies blood thinners. States he is a previous daily alcohol drinker, however reports he quit 1 week ago. - Related Data Home Medications Medication Instructions Recorded Confirmed Pantoprazole [Protonix] 40 mg PO DAILY 09/22/23 03/08/24 Folic Acid 1 mg PO DAILY 02/20/24 03/08/24 Dapagliflozin Propanediol [Farxiga] 10 mg PO DIRECTED 03/08/24 03/08/24 Glucagon Emergency Kit 1 mg IM ONCE PRN 03/08/24 03/08/24 Hydrocortisone Pr Cream 1 applic RECTAL QID 03/08/24 03/08/24 [Proctosol-Hc 2.5%] Insulin Glargine,Hum.rec.anlog 30 units SQ W/SUPPER 03/08/24 03/08/24 [Lantus Solostar Pen] Insulin Lispro [Insulin Lispro See Protocol SQ DIRECTED 03/08/24 03/08/24 Kwikpen U-100] Previous Rx's Medication Instructions Recorded Thiamine [Vitamin B-1] 100 mg PO DAILY #30 tab 09/30/23 Furosemide [Lasix] 20 mg PO DAILY #30 tab 02/21/24 Spironolactone [Aldactone] 25 mg PO DAILY #30 tablet 02/21/24 cloNIDine HCL [Catapres] 0.1 mg PO BID #60 tab 02/21/24 lisinopriL [Zestril] 10 mg PO DAILY #30 tab 02/21/24 Allergies Allergy/AdvReac Type Severity Reaction Status Date / Time No Known Allergies Allergy Verified 03/08/24 12:24 Review of Systems ROS Statement: Those systems with pertinent positive or pertinent negative responses have been documented in the HPI. ROS Other: All systems not noted in ROS Statement are negative. Past Medical History Past Medical History: Hypertension Additional Past Medical History / Comment(s): Nephrolithiasis, ETOH abuse with past withdrawal tremors, past alcoholic hepatitis/acute severe kidney injury/hyperphosphatemia/acute metabolic encephalopathy from renal failure. History of Any Multi-Drug Resistant Organisms: None Reported Past Surgical History: Cholecystectomy, Tonsillectomy Past Anesthesia/Blood Transfusion Reactions: No Reported Reaction Past Psychological History: No Psychological Hx Reported Smoking Status: Current every day smoker Past Alcohol Use History: Abuse, Daily Past Drug Use History: Cocaine, Marijuana - Past Family History Father Family Medical History: Myocardial Infarction ([place]) Mother Family Medical History: Hypertension Additional Family Medical History / Comment(s): heart stent General Exam Limitations: no limitations General appearance: alert, in no apparent distress Respiratory exam: Present: normal lung sounds bilaterally. Absent: respiratory distress, wheezes, rales, rhonchi, stridor Cardiovascular Exam: Present: regular rate, normal rhythm, normal heart sounds. Absent: systolic murmur, diastolic murmur, rubs, gallop, clicks GI/Abdominal exam: Present: soft, normal bowel sounds. Absent: distended, tenderness, guarding, rebound, rigid Rectal exam: Present: normal inspection, tenderness, other (RN Rowena present for rectal examination. No visible hemorrhoids, abscesses, or fissures. Tenderness to palpation at 9 oclock.) Extremities exam: Present: normal inspection, full ROM, normal capillary refill. Absent: tenderness, pedal edema, joint swelling, calf tenderness Back exam: Present: normal inspection Neurological exam: Present: alert, oriented X3 Psychiatric exam: Present: normal affect, normal mood Skin exam: Present: warm, dry, intact, normal color. Absent: rash Course Vital Signs 03/08/24 03/08/24 11:52 14:58 Temperature 98.1 F Pulse Rate 18 L 95 Respiratory 18 18 Rate Blood Pressure 130/73 117/59 O2 Sat by Pulse 96 98 Oximetry Medical Decision Making - Medical Decision Making Was pt. sent in by a medical professional or institution (CARMEN Frey, [employer], urgent care, hospital, or longterm...) When possible be specific @ -No Did you speak to anyone other than the patient for history (EMS, parent, family, police, friend...)? What history was obtained from this source @ -No Did you review nursing and triage notes (agree or disagree)? Why? @ -I reviewed and agree with nursing and triage notes Were old charts reviewed (outside hosp., previous admission, EMS record, old EKG, old radiological studies, urgent care reports/EKG's, longterm records)? Report findings @ -No old charts were reviewed Differential Diagnosis (chest pain, altered mental status, abdominal pain women, abdominal pain men, vaginal bleeding, weakness, fever, dyspnea, syncope, headache, dizziness, GI bleed, back pain, seizure, CVA, palpatations, mental health, musculoskeletal)? @ -Differential GI Bleed: Esophageal varices, aortoenteric fistula, Daniela-Chiu, gastritis, peptic ulcer disease, diverticulosis, inflammatory bowel disease, hemorrhoids, fissure, colitis, malignancy, Meckel's diverticulum, this is not meant to be an all- inclusive list. EKG interpreted by me (3pts min.). @ -None X-rays interpreted by me (1pt min.). @ -None done CT interpreted by me (1pt min.). @ -CT abdomen pelvis revealed stable hepatocellular disease with hepatomegaly, cirrhosis as well as splenomegaly. Perisplenic and perigastric varices identified. Abdominal pelvic ascites similar in appearance when compared to previous study U/S interpreted by me (1pt. min.). @ -None done What testing was considered but not performed or refused? (CT, X-rays, U/S, labs)? Why? @ -CT angio GI bleed protocol ordered however not obtained with contrast due to patient's creatinine is 10.75, her GFR is 6 What meds were considered but not given or refused? Why? @ -None Did you discuss the management of the patient with other professionals (professionals i.e. CARMEN Frey, [employer], lab, RT, psych nurse, social services assistant, reporting analyst, teacher, mortgage loan officer, watch case polisher)? Give summary @ -I spoke with Dr. Mehta regarding renal failure who recommends repeat CBC, CMP. Discussed repeat lab work creatinine of 10.34. He recommended Onofre catheter and bicarb drip with admission for acute renal failure. I then spoke with Dr. Nagy who accepts admission at this time with nephrology consult Was smoking cessation discussed for >3mins.? @ -No Was critical care preformed (if so, how long)? @ -No Were there social determinants of health that impacted care today? How? (Homelessness, low income, unemployed, alcoholism, drug addiction, transportation, low edu. Level, literacy, decrease access to med. care, residential, rehab)? @ -No Was there de-escalation of care discussed even if they declined (Discuss DNR or withdrawal of care, Hospice)? DNR status @ -No What co-morbidities impacted this encounter? (DM, HTN, Smoking, COPD, CAD, Cancer, CVA, ARF, Chemo, Hep., AIDS, mental health diagnosis, sleep apnea, morbid obesity)? @ -DM, hypertension, renal disease Was patient admitted / discharged? Hospital course, mention meds given and route, prescriptions, significant lab abnormalities, going to OR and other pertinent info. @ -Is a 33-year-old male with history of diabetes, renal disease, cirrhosis, and hypertension presenting for rectal bleeding x 4 days. States he has been having painful bowel movements and today has been experiencing bright red blood that filled the toilet bowl. Denies fever, chills, abdominal pain, hematemesis. Vital signs within normal limits, patient is resting comfortably on stretcher in no acute distress. Rectal examination performed with RN Rowena present, revealed no visible hemorrhoid, however there was pain to palpation to lateral rectum. No visible bleeding. Abdomen is soft and nontender. Lab work remarkable for creatinine 10.72, GFR 6, CO2 11, sodium 123, hemoglobin is 12.4. CT abdomen pelvis revealed stable hepatocellular disease with hepatomegaly, cirrhosis as well as splenomegaly. Perisplenic and perigastric varices identified. Abdominal pelvic ascites similar in appearance when compared to previous study after repeat lab work. Discussed repeat labs with Dr. Mehta who recommends Onofre catheter and bicarb drip with admission for acute renal failure. Patient is agreeable to plan. Case was discussed with my ED attending Dr. Dacosta. Undiagnosed new problem with uncertain prognosis? @ -No Drug Therapy requiring intensive monitoring for toxicity (Heparin, Nitro, Insulin, Cardizem)? @ -No Were any procedures done? @ -No Diagnosis/symptom? @ -Acute renal failure, hemorrhoid Acute, or Chronic, or Acute on Chronic? @ -Acute Uncomplicated (without systemic symptoms) or Complicated (systemic symptoms)? @ -Uncomplicated Side effects of treatment? @ -No Exacerbation, Progression, or Severe Exacerbation? @ -No Poses a threat to life or bodily function? How? (Chest pain, USA, ID, pneumonia, PE, COPD, DKA, ARF, appy, cholecystitis, CVA, Diverticulitis, Homicidal, Suicidal, threat to staff... and all critical care pts) @ -Yes - Lab Data Result diagrams: 03/08/24 14:43 03/08/24 14:43 Lab Results 03/08/24 03/08/24 03/08/24 Range/Units 12:43 12:43 12:43 WBC 10.8 H (3.8-10.6) k/uL RBC 3.47 L (4.30-5.90) m/uL Hgb 12.4 L (13.0-17.5) gm/dL Hct 37.1 L (39.0-53.0) % MCV 107.0 H D (80.0-100.0) fL MCH 35.6 H (25.0-35.0) pg MCHC 33.3 (31.0-37.0) g/dL RDW 11.7 (11.5-15.5) % Plt Count 145 L (150-450) k/uL MPV 8.7 Neutrophils % 86 % Lymphocytes % 5 % Monocytes % 6 % Eosinophils % 1 % Basophils % 0 % Neutrophils # 9.3 H (1.3-7.7) k/uL Lymphocytes # 0.6 L (1.0-4.8) k/uL Monocytes # 0.6 (0-1.0) k/uL Eosinophils # 0.1 (0-0.7) k/uL Basophils # 0.0 (0-0.2) k/uL Macrocytosis Slight Sodium 123 L (137-145) mmol/L Potassium 4.9 (3.5-5.1) mmol/L Chloride 86 L (98-107) mmol/L Carbon Dioxide 11 L (22-30) mmol/L Anion Gap 26 mmol/L BUN 86 H (9-20) mg/dL Creatinine 10.72 H* (0.66-1.25) mg/dL Est GFR (CKD-EPI)AfAm 7 (>60 ml/min/1.73 sqM) Est GFR (CKD-EPI)NonAf 6 (>60 ml/min/1.73 sqM) Glucose 164 H (74-99) mg/dL POC Glucose (mg/dL) (70-110) mg/dL POC Glu Ironing Worker ID Plasma Lactic Acid Raul 0.8 (0.7-2.0) mmol/L Calcium 7.8 L (8.4-10.2) mg/dL Total Bilirubin 7.8 H (0.2-1.3) mg/dL AST 100 H (17-59) U/L ALT 35 (4-49) U/L Alkaline Phosphatase 400 H (38-126) U/L Total Protein 8.5 H (6.3-8.2) g/dL Albumin 4.4 (3.5-5.0) g/dL 03/08/24 03/08/24 03/08/24 Range/Units 14:43 14:43 14:49 WBC 10.7 H (3.8-10.6) k/uL RBC 3.45 L (4.30-5.90) m/uL Hgb 12.1 L (13.0-17.5) gm/dL Hct 37.0 L (39.0-53.0) % MCV 107.2 H (80.0-100.0) fL MCH 35.1 H (25.0-35.0) pg MCHC 32.7 (31.0-37.0) g/dL RDW 11.6 (11.5-15.5) % Plt Count 138 L (150-450) k/uL MPV 8.3 Neutrophils % 84 % Lymphocytes % 7 % Monocytes % 6 % Eosinophils % 1 % Basophils % 0 % Neutrophils # 9.0 H (1.3-7.7) k/uL Lymphocytes # 0.8 L (1.0-4.8) k/uL Monocytes # 0.6 (0-1.0) k/uL Eosinophils # 0.1 (0-0.7) k/uL Basophils # 0.0 (0-0.2) k/uL Macrocytosis Moderate Sodium 124 L (137-145) mmol/L Potassium 5.0 (3.5-5.1) mmol/L Chloride 83 L (98-107) mmol/L Carbon Dioxide 13 L (22-30) mmol/L Anion Gap 28 mmol/L BUN 85 H (9-20) mg/dL Creatinine 10.34 H* (0.66-1.25) mg/dL Est GFR (CKD-EPI)AfAm 7 (>60 ml/min/1.73 sqM) Est GFR (CKD-EPI)NonAf 6 (>60 ml/min/1.73 sqM) Glucose 147 H (74-99) mg/dL POC Glucose (mg/dL) 155 H (70-110) mg/dL POC Glu Ironing Worker ID Destiny Guaman Plasma Lactic Acid Raul (0.7-2.0) mmol/L Calcium 7.5 L (8.4-10.2) mg/dL Total Bilirubin 7.6 H (0.2-1.3) mg/dL AST 96 H (17-59) U/L ALT 34 (4-49) U/L Alkaline Phosphatase 359 H (38-126) U/L Total Protein 8.2 (6.3-8.2) g/dL Albumin 4.2 (3.5-5.0) g/dL 03/08/24 Range/Units 14:51 WBC (3.8-10.6) k/uL RBC (4.30-5.90) m/uL Hgb (13.0-17.5) gm/dL Hct (39.0-53.0) % MCV (80.0-100.0) fL MCH (25.0-35.0) pg MCHC (31.0-37.0) g/dL RDW (11.5-15.5) % Plt Count (150-450) k/uL MPV Neutrophils % % Lymphocytes % % Monocytes % % Eosinophils % % Basophils % % Neutrophils # (1.3-7.7) k/uL Lymphocytes # (1.0-4.8) k/uL Monocytes # (0-1.0) k/uL Eosinophils # (0-0.7) k/uL Basophils # (0-0.2) k/uL Macrocytosis Sodium (137-145) mmol/L Potassium (3.5-5.1) mmol/L Chloride (98-107) mmol/L Carbon Dioxide (22-30) mmol/L Anion Gap mmol/L BUN (9-20) mg/dL Creatinine (0.66-1.25) mg/dL Est GFR (CKD-EPI)AfAm (>60 ml/min/1.73 sqM) Est GFR (CKD-EPI)NonAf (>60 ml/min/1.73 sqM) Glucose (74-99) mg/dL POC Glucose (mg/dL) 158 H (70-110) mg/dL POC Glu Ironing Worker ID [email or web address] Guaman Plasma Lactic Acid Raul (0.7-2.0) mmol/L Calcium (8.4-10.2) mg/dL Total Bilirubin (0.2-1.3) mg/dL AST (17-59) U/L ALT (4-49) U/L Alkaline Phosphatase (38-126) U/L Total Protein (6.3-8.2) g/dL Albumin (3.5-5.0) g/dL Disposition Clinical Impression: Acute renal failure, Hemorrhoid Disposition: ADMITTED IP TO THIS HOSP Referrals: Gabe Flynn DO [Primary Care Provider] - 1-2 days Time of Disposition: 15:55
[2024-03-08 13:00] LABS: ALT 35 U/L (4-49); AST 100 U/L (17-59); African American GFR (CKD) 7 (>60 ml/min/1.73 sqM); Albumin 4.4 g/dL (3.5-5.0); Alkaline Phosphatase 400 U/L (38-126); Anion Gap 26 mmol/L; Blood Urea Nitrogen 86 mg/dL (9-20); Calcium 7.8 mg/dL (8.4-10.2); Carbon Dioxide 11 mmol/L (22-30); Chloride 86 mmol/L (98-107); Glucose 164 mg/dL (74-99); Non-African American GFR(CKD) 6 (>60 ml/min/1.73 sqM); Potassium 4.9 mmol/L (3.5-5.1); Sodium 123 mmol/L (137-145); Total Bilirubin 7.8 mg/dL (0.2-1.3); Total Protein 8.5 g/dL (6.3-8.2)
[2024-03-08 13:06] LABS: Basophils % (A) 0 %; Eosinophils # (A) 0.1 k/uL (0-0.7); Eosinophils % (A) 1 %; HCT 37.1 % (39.0-53.0); HGB 12.4 gm/dL (13.0-17.5); Lymphocytes # (A) 0.6 k/uL (1.0-4.8); Lymphocytes % (A) 5 %; MCH 35.6 pg (25.0-35.0); MCHC 33.3 g/dL (31.0-37.0); Macrocytosis Slight; Mean Platelet Volume 8.7; Monocytes # (A) 0.6 k/uL (0-1.0); Monocytes % (A) 6 %; Neutrophils # (A) 9.3 k/uL (1.3-7.7); Neutrophils % (A) 86 %; Platelet Count 145 k/uL (150-450); RBC 3.47 m/uL (4.30-5.90); RDW 11.7 % (11.5-15.5); WBC 10.8 k/uL (3.8-10.6)
--- NOTE | 2024-03-08 13:59 | CT ---
EXAMINATION TYPE: CT abdomen pelvis wo con DATE OF EXAM: 03/08/2024 COMPARISON: 11/11/2023 HISTORY: Rectal bleeding. Hx acute kidney injury Hx abelino CT DLP: 745.10 mGycm Examination of the solid and hollow viscera is limited given the lack of contrast. FINDINGS: LUNG BASES: No evidence for nodule. No evidence for infiltrate. LIVER/GB: The gallbladder is unremarkable. Hepatomegaly with micronodular peripheral hepatic contour suggesting cirrhotic liver disease. Perihepatic fluid is noted. Hypertrophic changes of the caudate l obe. Perigastric varices seen. PANCREAS: No pancreatic mass identified. No inflammatory process seen. SPLEEN: Splenomegaly with AP dimension of 18 cm. Perisplenic varices identified.. No intrasplenic les ions seen. ADRENALS: No adrenal nodules identified. No evidence for thickening. KIDNEYS: No evidence for renal mass. No nephrolithiasis. No hydronephrosis. BOWEL: Appendix has a normal appearance. No evidence of bowel obstruction. No inflammatory process. B owel wall thickening likely related to hypoalbuminemia. Lymph nodes: No evidence for adenopathy greater than 1 cm. Abdominal aorta: Atheromatous changes seen. No evidence for aneurysm. Genital organs: No significant abnormality. Other: Similar pelvic ascites noted from prior study. Fat-containing umbilical hernia which has enlar ged in the interval and may contain trapped fluid is mildly increased attenuation seen. IMPRESSION: 1. Stable hepatocellular disease with hepatomegaly, cirrhosis as well as splenomegaly. Perisplenic an d perigastric varices identified. 2. Abdominopelvic ascites similar in appearance when compared to the prior study. [facility], , 03/08/2024 1:57 PM
[2024-03-08 14:56] LABS: Glucose,Whole Blood 155 mg/dL (70-110)
[2024-03-08] MEDS: MORPHINE SULFATE 2 MG/ML SYRINGE IVP ONE ×2 (14:59→18:59)
[2024-03-08 15:00] LABS: Basophils % (A) 0 %; Eosinophils # (A) 0.1 k/uL (0-0.7); Eosinophils % (A) 1 %; HGB 12.1 gm/dL (13.0-17.5); Lymphocytes # (A) 0.8 k/uL (1.0-4.8); Lymphocytes % (A) 7 %; MCH 35.1 pg (25.0-35.0); MCHC 32.7 g/dL (31.0-37.0); MCV 107.2 fL (80.0-100.0); Macrocytosis Moderate; Mean Platelet Volume 8.3; Monocytes # (A) 0.6 k/uL (0-1.0); Monocytes % (A) 6 %; Neutrophils % (A) 84 %; Platelet Count 138 k/uL (150-450); RBC 3.45 m/uL (4.30-5.90); RDW 11.6 % (11.5-15.5); WBC 10.7 k/uL (3.8-10.6)
[2024-03-08 15:13] LABS: Glucose,Whole Blood 158 mg/dL (70-110)
[2024-03-08 15:14] LABS: ALT 34 U/L (4-49); AST 96 U/L (17-59); African American GFR (CKD) 7 (>60 ml/min/1.73 sqM); Albumin 4.2 g/dL (3.5-5.0); Alkaline Phosphatase 359 U/L (38-126); Anion Gap 28 mmol/L; Blood Urea Nitrogen 85 mg/dL (9-20); Calcium 7.5 mg/dL (8.4-10.2); Carbon Dioxide 13 mmol/L (22-30); Chloride 83 mmol/L (98-107); Glucose 147 mg/dL (74-99); Non-African American GFR(CKD) 6 (>60 ml/min/1.73 sqM); Sodium 124 mmol/L (137-145); Total Bilirubin 7.6 mg/dL (0.2-1.3); Total Protein 8.2 g/dL (6.3-8.2)
[2024-03-08] MEDS ORDERED: NALOXONE 0.4 MG/ML 1 ML VIAL IV PRN (15:52)
[2024-03-08] MEDS: NICOTINE 14MG/24HR PATCH TRANSDERM STA (16:39)
[2024-03-08] MEDS: DEXTROSE 5% IN WATER 1,000 ML with SODIUM BICARB (1 MEQ/ML) 150 ML IV SCH (16:51)
[2024-03-08] MEDS: KETOROLAC 15 MG/ML 1 ML VIAL IVP STA (22:47)
[2024-03-09] MEDS ORDERED: DEXTROSE 50% SYRINGE 50 ML IVP PRN ×2 (07:58)
[2024-03-09 09:38] LABS: ALT 33 U/L (4-49); AST 95 U/L (17-59); African American GFR (CKD) 10 (>60 ml/min/1.73 sqM); Alkaline Phosphatase 374 U/L (38-126); Anion Gap 22 mmol/L; Blood Urea Nitrogen 87 mg/dL (9-20); Carbon Dioxide 21 mmol/L (22-30); Chloride 85 mmol/L (98-107); Glucose 176 mg/dL (74-99); Magnesium 1.6 mg/dL (1.6-2.3); Non-African American GFR(CKD) 9 (>60 ml/min/1.73 sqM); Potassium 3.4 mmol/L (3.5-5.1); Sodium 128 mmol/L (137-145); Total Bilirubin 7.7 mg/dL (0.2-1.3); Total Protein 7.9 g/dL (6.3-8.2)
[2024-03-09] MEDS: HYDROmorphone 0.5 MG/0.5 ML SYRINGE IVP PRN ×2 (10:58→23:23)
--- NOTE | 2024-03-09 11:09 | P.NPCON ---
History of Present Illness - Reason for Consult acute renal failure - History of Present Illness Reason for consultation: Acute kidney injury History of present illness: Patient is a 33-year-old male seen in renal consultation for acute kidney injury. Patient's creatinine was 0.6 dated February 21, 2024. This admission was 10.7 and is 7.5 today. Patient came to the hospital due to 3 days of rectal bleeding. Patient states he was recently diagnosed with a hemorrhoid and has been bleeding when he has a bowel movement. He does admit to taking ibuprofen 800 mg daily for the last 2 weeks. Currently has a Onofre catheter and is nonoliguric. Patient does have history of alcohol induced liver cirrhosis and is maintained on Aldactone and Lasix outpatient which are currently held. He was also on lisinopril and Farxiga which is being held at this time. Patient states he was diagnosed with diabetes about a week ago and was started on insulin. No vomiting or diarrhea. No fever or chills. No chest pain or shortness of breath. Denies history of coronary artery disease. Denies history of paracentesis. Hemodynamically stable. Denies abdominal pain. Vital signs are stable. General: No acute distress. HEENT: Head exam is unremarkable. LUNGS: No audible rhonchi or wheezes. HEART: Rate and Rhythm are regular. ABDOMEN: Nontender. EXTREMITITES: No edema. Past Medical History Past Medical History: Hypertension Additional Past Medical History / Comment(s): Nephrolithiasis, ETOH abuse with past withdrawal tremors, past alcoholic hepatitis/acute severe kidney injury/hyperphosphatemia/acute metabolic encephalopathy from renal failure. History of Any Multi-Drug Resistant Organisms: None Reported Past Surgical History: Cholecystectomy, Tonsillectomy Past Anesthesia/Blood Transfusion Reactions: No Reported Reaction Past Psychological History: No Psychological Hx Reported Additional Psychological History / Comment(s): Pt resides with his mother. He is independent. Smoking Status: Current every day smoker Past Alcohol Use History: Abuse, Daily Additional Past Alcohol Use History / Comment(s): Pt started smoking as a teen and is a ppd smoker. He states he was drinking a pint of vodka a day prior to getting his gallbladder out but since then he drinks more occationally. Past Drug Use History: Cocaine, Marijuana Additional Drug Use History / Comment(s): Pt states he smokes 1 joint every day - Past Family History Father Family Medical History: Myocardial Infarction ([place]) Mother Family Medical History: Hypertension Additional Family Medical History / Comment(s): heart stent Medications and Allergies Home Medications Medication Instructions Recorded Confirmed Type Pantoprazole [Protonix] 40 mg PO DAILY 09/22/23 03/08/24 History Thiamine [Vitamin B-1] 100 mg PO DAILY #30 tab 09/30/23 03/08/24 Rx Folic Acid 1 mg PO DAILY 02/20/24 03/08/24 History Furosemide [Lasix] 20 mg PO DAILY #30 tab 02/21/24 03/08/24 Rx Spironolactone [Aldactone] 25 mg PO DAILY #30 tablet 02/21/24 03/08/24 Rx cloNIDine HCL [Catapres] 0.1 mg PO BID #60 tab 02/21/24 03/08/24 Rx lisinopriL [Zestril] 10 mg PO DAILY #30 tab 02/21/24 03/08/24 Rx Dapagliflozin Propanediol [Farxiga] 10 mg PO DIRECTED 03/08/24 03/08/24 History Glucagon Emergency Kit 1 mg IM ONCE PRN 03/08/24 03/08/24 History Hydrocortisone Pr Cream 1 applic RECTAL QID 03/08/24 03/08/24 History [Proctosol-Hc 2.5%] Insulin Glargine,Hum.rec.anlog 30 units SQ W/SUPPER 03/08/24 03/08/24 History [Lantus Solostar Pen] Insulin Lispro [Insulin Lispro See Protocol SQ DIRECTED 03/08/24 03/08/24 History Kwikpen U-100] Allergies Allergy/AdvReac Type Severity Reaction Status Date / Time No Known Allergies Allergy Verified 03/08/24 12:24 Physical Exam Vitals: Vital Signs Temp Pulse Pulse Resp BP BP Pulse Ox 03/09/24 10:21 96 18 124/67 97 03/09/24 07:57 98.3 F 90 20 124/74 98 03/09/24 04:00 98.0 F 94 18 138/60 97 03/09/24 02:00 18 03/09/24 00:00 92 18 126/55 97 03/08/24 20:00 98.1 F 88 18 147/76 96 03/08/24 18:42 105 H 18 154/89 97 03/08/24 14:58 95 18 117/59 98 03/08/24 11:52 98.1 F 18 L 18 130/73 96 Intake and Output 03/08/24 03/09/24 03/09/24 22:59 06:59 14:59 Output Total 1000 Balance -1000 Output: Urine 1000 Other: Voiding Method Indwelling Catheter Indwelling Catheter # Bowel Movements 2 Weight 95.254 kg Results - Lab Results Most recent lab results Calcium 7.0 mg/dL (8.4-10.2) L 03/09/24 08:41 Magnesium 1.6 mg/dL (1.6-2.3) 03/09/24 08:41 03/08/24 14:43 03/09/24 08:41 Assessment and Plan Plan: Assessment: 1. Acute kidney injury secondary to ATN secondary to hypovolemia from use of diuretics and further worsen with the use of OBED inhibitor as well as NSAIDs. Creatinine 10.7 on admission and is 7.51 today. Nonoliguric. No hydronephrosis noted on CAT scan. Baseline creatinine near 0.6. 2. Alcohol induced liver cirrhosis. 3. Hypovolemic hyponatremia improved with IV fluids. 4. Hypokalemia from intracellular shifting from IV bicarb. 5. Metabolic acidosis secondary to acute kidney injury. Improved with bicarb drip. 6. Recently diagnosed diabetes mellitus. Plan: Change bicarb drip to normal saline at 100 cc an hour. Add oral bicarb. Replace potassium and magnesium. Maintain Onofre catheter. Follow-up UA. Continue to hold diuretics. Avoid nephrotoxins. Continue to monitor renal function and urine output. Continue to assess daily for need for renal replacement therapy. No urgency at this time. Thank you for the consultation. I will continue to follow the patient with you during his hospital stay.
[2024-03-09 11:21] LABS: Appearance,Urine Clear (Clear); Bacteria,Urine Rare /hpf; Bilirubin,Urine Negative (Negative); Blood,Urine Moderate (Negative); Color,Urine Yellow; Glucose,Urine (UA) 3+ (Negative); Ketones,Urine Negative (Negative); Leukocyte Esterase,Urine Trace (Negative); Nitrite,Urine Negative (Negative); PH, Urine 5.5 (5.0-8.0); Protein,Urine Trace (Negative); RBC,Urine 13 /hpf (0-5); Specific Gravity,Urine 1.011 (1.001-1.035); Squamous Epithelial Cell,Urine <1 /hpf (0-4); Urobilinogen,Urine <2.0 mg/dL (<2.0); WBC,Urine 143 /hpf (0-5)
[2024-03-09 11:32] LABS: Glucose,Whole Blood 184 mg/dL (70-110)
[2024-03-09] MEDS: SODIUM BICARBONATE TAB 650 MG TAB PO SCH (11:46)
[2024-03-09] MEDS: POTASSIUM CHLORIDE ER 20 MEQ TAB.ER PO STA (11:46)
[2024-03-09] MEDS: INSULIN ASPART (NovoLOG) 100 UNIT/ML VIAL SQ SCH (11:47)
[2024-03-09] MEDS: SODIUM CHLORIDE 0.9% 1,000 ML IV SCH (11:47)
[2024-03-09] MEDS: MAGNESIUM SULFATE-D5W PMX 1 GM in DEXTROSE/WATER 1 100ML.BAG IVPB SCH (11:47)
--- NOTE | 2024-03-09 13:27 | P.HPIM ---
History of Present Illness H&P Date: 03/09/24 Patient is a 33-year-old male with a past medical history significant for hypertension, diabetes, liver cirrhosis, end stage renal disease, and alcohol abuse with past withdrawal tremors presented with a small amount of bright red blood per rectum for about a week. He has experienced bright red blood per rectum one other time and was told he has hemorrhoids. He states that he went to his primary care physician who provided him with suppositories and Preparation H as that helped him last time. He has not been able to use the suppositories as it causes him pain to insert and Preparation H has not helped him either. Yesterday morning he had a bowel movement with blood but yesterday afternoon his bowel movement was without blood. He endorses soft stools without the use of stool softeners. He endorses pain with bowel movements. He states that his last drink was about [address] abdomen: Stable hepatocellular disease with past medically, cirrhosis as well as splenomegaly, perisplenic and perigastric varices identified, abdominal pelvic ascites similar in appearance when compared to the prior study. WBCs 10.8, hemoglobin 12.4, hematocrit 37.1, MCV 107, sodium 123, chloride 86, CO2 11, BUN 86, creatinine 10.72, GFR 6, calcium 7.8, total bilirubin 7.8, AST 100, ALT 35, alkaline phosphatase 400. Afebrile, normotensive, saturating well on room air. ED documentation reviewed. Review of systems: Pertinent positives and negatives as discussed in HPI, a complete review of systems was performed and all other systems are negative. Family history: Motherhypertension Social history: Tobacco: 1/2 ppd, vapes Alcohol: 1 pint per night, has not drank in 4 days Recreational drugs: 1-2 g marijuana daily Physical examination: Vital signs are reviewed. General: No acute distress. AOx4. HEENT: Head exam is unremarkable. EOMI bilaterally. ACs patent. Nares patent. Lungs: Bilateral breath sounds present; no rhonchi, wheezes, or rales. Heart: Rate and rhythm are regular. S1-S2 present. No murmur/rub/gallops. Abdomen: Soft, nontender, ascites present. Bowel sounds present. Extremities: No edema present. Symmetric movement. Psych: Normal affect and mood. Cooperative. Assessment/Plan: Hypervolemic hyponatremia Metabolic acidosis secondary to uremia Status post bicarb drip Acute kidney injury secondary to ATN secondary to hypovolemia Nephrology consulted Hypertension Do not resume home medications due to kidney failure Monitor vitals Diabetes mellitus type 2 Insulin sliding scale Monitor glucose Hemorrhoids Anusol 25 mg twice daily Liver cirrhosis Obtain INR Obtain ammonia DVT prophylaxis: Mechanical Chronic conditions: Hypertension, alcohol abuse, liver cirrhosis, end-stage renal disease, diabetes mellitus type 2 The patient is admitted with an anticipated more than 2 midnight stay for evaluation of bright red blood per rectum. CODE STATUS: Full code Discussed with: Patient Anticipated discharge place: Home Past Medical History Past Medical History: Hypertension Additional Past Medical History / Comment(s): Nephrolithiasis, ETOH abuse with past withdrawal tremors, past alcoholic hepatitis/acute severe kidney injury/hyperphosphatemia/acute metabolic encephalopathy from renal failure. History of Any Multi-Drug Resistant Organisms: None Reported Past Surgical History: Cholecystectomy, Tonsillectomy Past Anesthesia/Blood Transfusion Reactions: No Reported Reaction Past Psychological History: No Psychological Hx Reported Additional Psychological History / Comment(s): Pt resides with his mother. He is independent. Smoking Status: Current every day smoker Past Alcohol Use History: Abuse, Daily Additional Past Alcohol Use History / Comment(s): Pt started smoking as a teen and is a ppd smoker. He states he was drinking a pint of vodka a day prior to getting his gallbladder out but since then he drinks more occationally. Past Drug Use History: Cocaine, Marijuana Additional Drug Use History / Comment(s): Pt states he smokes 1 joint every day - Past Family History Father Family Medical History: Myocardial Infarction ([place]) Mother Family Medical History: Hypertension Additional Family Medical History / Comment(s): heart stent Medications and Allergies Home Medications Medication Instructions Recorded Confirmed Type Pantoprazole [Protonix] 40 mg PO DAILY 09/22/23 03/08/24 History Thiamine [Vitamin B-1] 100 mg PO DAILY #30 tab 09/30/23 03/08/24 Rx Folic Acid 1 mg PO DAILY 02/20/24 03/08/24 History Furosemide [Lasix] 20 mg PO DAILY #30 tab 02/21/24 03/08/24 Rx Spironolactone [Aldactone] 25 mg PO DAILY #30 tablet 02/21/24 03/08/24 Rx cloNIDine HCL [Catapres] 0.1 mg PO BID #60 tab 02/21/24 03/08/24 Rx lisinopriL [Zestril] 10 mg PO DAILY #30 tab 02/21/24 03/08/24 Rx Dapagliflozin Propanediol [Farxiga] 10 mg PO DIRECTED 03/08/24 03/08/24 History Glucagon Emergency Kit 1 mg IM ONCE PRN 03/08/24 03/08/24 History Hydrocortisone Pr Cream 1 applic RECTAL QID 03/08/24 03/08/24 History [Proctosol-Hc 2.5%] Insulin Glargine,Hum.rec.anlog 30 units SQ W/SUPPER 03/08/24 03/08/24 History [Lantus Solostar Pen] Insulin Lispro [Insulin Lispro See Protocol SQ DIRECTED 03/08/24 03/08/24 History Kwikpen [id number]] Allergies Allergy/AdvReac Type Severity Reaction Status Date / Time No Known Allergies Allergy Verified 03/08/24 12:24 Physical Exam Vitals: Vital Signs Temp Pulse Pulse Resp BP BP Pulse Ox 03/09/24 04:00 98.0 F 94 18 138/60 97 03/09/24 02:00 18 03/09/24 00:00 92 18 126/55 97 03/08/24 20:00 98.1 F 88 18 147/76 96 03/08/24 18:42 105 H 18 154/89 97 03/08/24 14:58 95 18 117/59 98 03/08/24 11:52 98.1 F 18 L 18 130/73 96 Intake and Output 03/08/24 03/09/24 03/09/24 22:59 06:59 14:59 Output Total 1000 Balance -1000 Output: Urine 1000 Other: Voiding Method Indwelling Catheter Indwelling Catheter # Bowel Movements 2 Weight 95.254 kg Results CBC & Chem 7: 03/08/24 14:43 03/09/24 08:41 Labs: Abnormal Lab Results - Last 24 Hours (Table) 03/08/24 03/08/24 03/08/24 Range/Units 12:43 12:43 14:43 WBC 10.8 H 10.7 H (3.8-10.6) k/uL RBC 3.47 L 3.45 L (4.30-5.90) m/uL Hgb 12.4 L 12.1 L (13.0-17.5) gm/dL Hct 37.1 L 37.0 L (39.0-53.0) % MCV 107.0 H D 107.2 H (80.0-100.0) fL MCH 35.6 H 35.1 H (25.0-35.0) pg Plt Count 145 L 138 L (150-450) k/uL Neutrophils # 9.3 H 9.0 H (1.3-7.7) k/uL Lymphocytes # 0.6 L 0.8 L (1.0-4.8) k/uL Sodium 123 L (137-145) mmol/L Chloride 86 L (98-107) mmol/L Carbon Dioxide 11 L (22-30) mmol/L BUN 86 H (9-20) mg/dL Creatinine 10.72 H* (0.66-1.25) mg/dL Glucose 164 H (74-99) mg/dL POC Glucose (mg/dL) (70-110) mg/dL Calcium 7.8 L (8.4-10.2) mg/dL Total Bilirubin 7.8 H (0.2-1.3) mg/dL AST 100 H (17-59) U/L Alkaline Phosphatase 400 H (38-126) U/L Total Protein 8.5 H (6.3-8.2) g/dL 03/08/24 03/08/24 03/08/24 Range/Units 14:43 14:49 14:51 WBC (3.8-10.6) k/uL RBC (4.30-5.90) m/uL Hgb (13.0-17.5) gm/dL Hct (39.0-53.0) % MCV (80.0-100.0) fL MCH (25.0-35.0) pg Plt Count (150-450) k/uL Neutrophils # (1.3-7.7) k/uL Lymphocytes # (1.0-4.8) k/uL Sodium 124 L (137-145) mmol/L Chloride 83 L (98-107) mmol/L Carbon Dioxide 13 L (22-30) mmol/L BUN 85 H (9-20) mg/dL Creatinine 10.34 H* (0.66-1.25) mg/dL Glucose 147 H (74-99) mg/dL POC Glucose (mg/dL) 155 H 158 H (70-110) mg/dL Calcium 7.5 L (8.4-10.2) mg/dL Total Bilirubin 7.6 H (0.2-1.3) mg/dL AST 96 H (17-59) U/L Alkaline Phosphatase 359 H (38-126) U/L Total Protein (6.3-8.2) g/dL Thrombosis Risk Factor Assmnt - Choose All That Apply Each Factor Represents 1 point: Obesity (BMI >25) Thrombosis Risk Factor Assessment Total Risk Factor Score: 1 Thrombosis Risk Factor Assessment Level: Low Risk
[2024-03-09 14:16] LABS: INR 1.7 (<1.2); Prothrombin Time 17.1 sec (10.0-12.5)
[2024-03-09] MEDS: HYDROCORTISONE SUPPOSITORY 25 MG SUPP RECTAL SCH (14:44)
[2024-03-09] MEDS: NICOTINE 14MG/24HR PATCH TRANSDERM SCH (15:49)
[2024-03-09 16:36] LABS: Glucose,Whole Blood 151 mg/dL (70-110)
[2024-03-09 19:51] LABS: Glucose,Whole Blood 191 mg/dL (70-110)
[2024-03-09] MEDS: INSULIN DETEMIR (LEVEMIR) 100 UNIT/ML SYR SQ SCH (21:27)
[2024-03-10 06:23] LABS: Glucose,Whole Blood 124 mg/dL (70-110)
[2024-03-10 08:16] LABS: Basophils # (A) 0.1 k/uL (0-0.2); Basophils % (A) 1 %; Eosinophils # (A) 0.2 k/uL (0-0.7); Eosinophils % (A) 2 %; HCT 35.7 % (39.0-53.0); HGB 11.9 gm/dL (13.0-17.5); Lymphocytes # (A) 1.2 k/uL (1.0-4.8); Lymphocytes % (A) 12 %; MCH 36.5 pg (25.0-35.0); MCHC 33.4 g/dL (31.0-37.0); MCV 109.4 fL (80.0-100.0); Macrocytosis Moderate; Mean Platelet Volume 8.9; Monocytes # (A) 0.6 k/uL (0-1.0); Monocytes % (A) 6 %; Neutrophils # (A) 7.6 k/uL (1.3-7.7); Neutrophils % (A) 76 %; Platelet Count 134 k/uL (150-450); RBC 3.26 m/uL (4.30-5.90); RDW 11.8 % (11.5-15.5); WBC 9.9 k/uL (3.8-10.6)
[2024-03-10 08:44] LABS: African American GFR (CKD) 34 (>60 ml/min/1.73 sqM); Anion Gap 14 mmol/L; Blood Urea Nitrogen 66 mg/dL (9-20); Calcium 7.2 mg/dL (8.4-10.2); Carbon Dioxide 25 mmol/L (22-30); Chloride 94 mmol/L (98-107); Glucose 89 mg/dL (74-99); Magnesium 1.7 mg/dL (1.6-2.3); Non-African American GFR(CKD) 30 (>60 ml/min/1.73 sqM); Potassium 3.6 mmol/L (3.5-5.1); Sodium 133 mmol/L (137-145)
--- NOTE | 2024-03-10 09:19 | P.PN ---
Subjective Progress Note Date: 03/10/24 Patient is a 33-year-old male with a past medical history significant for hypertension, diabetes, liver cirrhosis, end stage renal disease, and alcohol abuse with past withdrawal tremors presented with a small amount of bright red blood per rectum for about a week. He has experienced bright red blood per rectum one other time and was told he has hemorrhoids. He states that he went to his primary care physician who provided him with suppositories and Preparation H as that helped him last time. He has not been able to use the suppositories as it causes him pain to insert and Preparation H has not helped him either. Yesterday morning he had a bowel movement with blood but yesterday afternoon his bowel movement was without blood. He endorses soft stools without the use of stool softeners. He endorses pain with bowel movements. He states that his last drink was about [address] abdomen: Stable hepatocellular disease with past medically, cirrhosis as well as splenomegaly, perisplenic and perigastric varices identified, abdominal pelvic ascites similar in appearance when compared to the prior study. WBCs 10.8, hemoglobin 12.4, hematocrit 37.1, MCV 107, sodium 123, chloride 86, CO2 11, BUN 86, creatinine 10.72, GFR 6, calcium 7.8, total bilirubin 7.8, AST 100, ALT 35, alkaline phosphatase 400. Afebrile, normotensive, saturating well on room air. 03/10. Patient seen and examined laying in bed. WBCs 9.9, hemoglobin 11.9, MCV 109.4, platelets 134, INR 1.7, sodium 133, potassium 3.6, CO2 25, BUN 66, creatinine 2.72, ammonia 48. He reports feeling better. He denies any bowel movements and has not used the suppository. Review of systems: Pertinent positives and negatives as discussed in HPI, a complete review of systems was performed and all other systems are negative. Physical examination: Vital signs are reviewed. General: No acute distress. AOx4. HEENT: Head exam is unremarkable. EOMI bilaterally. ACs patent. Nares patent. Lungs: Bilateral breath sounds present; no rhonchi, wheezes, or rales. Heart: Rate and rhythm are regular. S1-S2 present. No murmur/rub/gallops. Abdomen: Soft, nontender, ascites present. Bowel sounds present. Extremities: No edema present. Symmetric movement. Psych: Normal affect and mood. Cooperative. Assessment/Plan: Hypovolemic hyponatremia Metabolic acidosis secondary to uremia Status post bicarb drip Currently on normal saline 100 cc/h Acute kidney injury secondary to ATN secondary to hypovolemia Nephrology following Hypertension Do not resume home medications due to kidney failure Monitor vitals Diabetes mellitus type 2 Insulin sliding scale Monitor glucose Hemorrhoids Anusol 25 mg twice daily Liver cirrhosis Monitor volume status DVT prophylaxis: Mechanical Chronic conditions: Hypertension, alcohol abuse, liver cirrhosis, end-stage renal disease, diabetes mellitus type 2 Dr. Asim MD I have performed a history and physical examination and medical decision making of this patient, discussed the same with the the resident, and agree with the assessment and plan as written. I performed brief physical exam. Objective - Vital Signs Vital signs: Vital Signs Temp 98.1 F 03/09/24 23:27 Pulse 97 03/10/24 04:00 Resp 16 03/10/24 04:00 BP 117/68 03/10/24 04:00 Pulse Ox 95 03/10/24 04:00 FiO2 Intake & Output 03/09/24 03/09/24 03/10/24 06:59 18:59 06:59 Intake Total 360 Output Total 1000 1075 1350 Balance -1000 -715 -1350 Weight 95.254 kg Intake: Oral 360 Output: Urine 1000 1075 1350 Other: Voiding Method Indwelling Catheter Indwelling Catheter Indwelling Catheter # Bowel Movements 2 - Labs CBC & Chem 7: 03/10/24 07:00 03/11/24 07:19 Labs: Abnormal Lab Results - Last 24 Hours (Table) 03/09/24 03/09/24 03/09/24 Range/Units 08:41 10:10 11:30 PT (10.0-12.5) sec INR (<1.2) Sodium 128 L (137-145) mmol/L Potassium 3.4 L (3.5-5.1) mmol/L Chloride 85 L (98-107) mmol/L Carbon Dioxide 21 L (22-30) mmol/L BUN 87 H (9-20) mg/dL Creatinine 7.51 H* (0.66-1.25) mg/dL Glucose 176 H (74-99) mg/dL POC Glucose (mg/dL) 184 H (70-110) mg/dL Calcium 7.0 L (8.4-10.2) mg/dL Total Bilirubin 7.7 H (0.2-1.3) mg/dL AST 95 H (17-59) U/L Alkaline Phosphatase 374 H (38-126) U/L Ammonia (<30) umol/L Urine Protein Trace H (Negative) Urine Glucose (UA) 3+ H (Negative) Urine Blood Moderate H (Negative) Ur Leukocyte Esterase Trace H (Negative) Urine RBC 13 H (0-5) /hpf Urine WBC 143 H (0-5) /hpf Urine Bacteria Rare H (None) /hpf 03/09/24 03/09/24 03/09/24 Range/Units 13:48 13:48 16:33 PT 17.1 H (10.0-12.5) sec INR 1.7 H (<1.2) Sodium (137-145) mmol/L Potassium (3.5-5.1) mmol/L Chloride (98-107) mmol/L Carbon Dioxide (22-30) mmol/L BUN (9-20) mg/dL Creatinine (0.66-1.25) mg/dL Glucose (74-99) mg/dL POC Glucose (mg/dL) 151 H (70-110) mg/dL Calcium (8.4-10.2) mg/dL Total Bilirubin (0.2-1.3) mg/dL AST (17-59) U/L Alkaline Phosphatase (38-126) U/L Ammonia 48 H (<30) umol/L Urine Protein (Negative) Urine Glucose (UA) (Negative) Urine Blood (Negative) Ur Leukocyte Esterase (Negative) Urine RBC (0-5) /hpf Urine WBC (0-5) /hpf Urine Bacteria (None) /hpf 03/09/24 03/10/24 Range/Units 19:47 06:09 PT (10.0-12.5) sec INR (<1.2) Sodium (137-145) mmol/L Potassium (3.5-5.1) mmol/L Chloride (98-107) mmol/L Carbon Dioxide (22-30) mmol/L BUN (9-20) mg/dL Creatinine (0.66-1.25) mg/dL Glucose (74-99) mg/dL POC Glucose (mg/dL) 191 H 124 H (70-110) mg/dL Calcium (8.4-10.2) mg/dL Total Bilirubin (0.2-1.3) mg/dL AST (17-59) U/L Alkaline Phosphatase (38-126) U/L Ammonia (<30) umol/L Urine Protein (Negative) Urine Glucose (UA) (Negative) Urine Blood (Negative) Ur Leukocyte Esterase (Negative) Urine RBC (0-5) /hpf Urine WBC (0-5) /hpf Urine Bacteria (None) /hpf
[2024-03-10] MEDS: MAGNESIUM OXIDE 400 MG TAB PO SCH (10:44)
[2024-03-10] MEDS: POTASSIUM CHLORIDE ER 20 MEQ TAB.ER PO STA (10:44)
--- NOTE | 2024-03-10 10:45 | P.PN ---
Subjective Patient is seen in follow-up for acute kidney injury. Renal function continues to improve with IV fluids. Nauseous this morning. No vomiting or diarrhea. Vital signs are stable. General: No acute distress. HEENT: Head exam is unremarkable. LUNGS: No audible rhonchi or wheezes. HEART: Rate and Rhythm are regular. ABDOMEN: Nontender. EXTREMITITES: No edema. Objective - Vital Signs Vital signs: Vital Signs Temp 98.0 F 03/10/24 08:39 Pulse 99 03/10/24 08:39 Resp 15 03/10/24 08:39 BP 142/71 03/10/24 08:39 Pulse Ox 96 03/10/24 08:39 FiO2 Intake & Output 03/09/24 03/10/24 03/10/24 18:59 06:59 18:59 Intake Total 360 Output Total 1075 1350 200 Balance -715 -1350 -200 Weight 87.9 kg Intake: Oral 360 Output: Urine 1075 1350 200 Other: Voiding Method Indwelling Catheter Indwelling Catheter Indwelling Catheter - Labs CBC & Chem 7: 03/10/24 07:00 03/10/24 07:00 Labs: Abnormal Lab Results - Last 24 Hours (Table) 03/09/24 03/09/24 03/09/24 Range/Units 10:10 11:30 13:48 RBC (4.30-5.90) m/uL Hgb (13.0-17.5) gm/dL Hct (39.0-53.0) % MCV (80.0-100.0) fL MCH (25.0-35.0) pg Plt Count (150-450) k/uL PT 17.1 H (10.0-12.5) sec INR 1.7 H (<1.2) Sodium (137-145) mmol/L Chloride (98-107) mmol/L BUN (9-20) mg/dL Creatinine (0.66-1.25) mg/dL POC Glucose (mg/dL) 184 H (70-110) mg/dL Calcium (8.4-10.2) mg/dL Ammonia (<30) umol/L Urine Protein Trace H (Negative) Urine Glucose (UA) 3+ H (Negative) Urine Blood Moderate H (Negative) Ur Leukocyte Esterase Trace H (Negative) Urine RBC 13 H (0-5) /hpf Urine WBC 143 H (0-5) /hpf Urine Bacteria Rare H (None) /hpf 03/09/24 03/09/24 03/09/24 Range/Units 13:48 16:33 19:47 RBC (4.30-5.90) m/uL Hgb (13.0-17.5) gm/dL Hct (39.0-53.0) % MCV (80.0-100.0) fL MCH (25.0-35.0) pg Plt Count (150-450) k/uL PT (10.0-12.5) sec INR (<1.2) Sodium (137-145) mmol/L Chloride (98-107) mmol/L BUN (9-20) mg/dL Creatinine (0.66-1.25) mg/dL POC Glucose (mg/dL) 151 H 191 H (70-110) mg/dL Calcium (8.4-10.2) mg/dL Ammonia 48 H (<30) umol/L Urine Protein (Negative) Urine Glucose (UA) (Negative) Urine Blood (Negative) Ur Leukocyte Esterase (Negative) Urine RBC (0-5) /hpf Urine WBC (0-5) /hpf Urine Bacteria (None) /hpf 03/10/24 03/10/24 03/10/24 Range/Units 06:09 07:00 07:00 RBC 3.26 L (4.30-5.90) m/uL Hgb 11.9 L (13.0-17.5) gm/dL Hct 35.7 L (39.0-53.0) % MCV 109.4 H (80.0-100.0) fL MCH 36.5 H (25.0-35.0) pg Plt Count 134 L (150-450) k/uL PT (10.0-12.5) sec INR (<1.2) Sodium 133 L (137-145) mmol/L Chloride 94 L (98-107) mmol/L BUN 66 H (9-20) mg/dL Creatinine 2.72 H (0.66-1.25) mg/dL POC Glucose (mg/dL) 124 H (70-110) mg/dL Calcium 7.2 L (8.4-10.2) mg/dL Ammonia (<30) umol/L Urine Protein (Negative) Urine Glucose (UA) (Negative) Urine Blood (Negative) Ur Leukocyte Esterase (Negative) Urine RBC (0-5) /hpf Urine WBC (0-5) /hpf Urine Bacteria (None) /hpf Assessment and Plan Plan: Assessment: 1. Acute kidney injury secondary to ATN secondary to hypovolemia from use of diuretics and further worsen with the use of OBED inhibitor as well as NSAIDs. Creatinine 10.7 on admission and is 2.72 today. Nonoliguric. No hydronephrosis noted on CAT scan. Baseline creatinine near 0.6. 2. Alcohol induced liver cirrhosis. 3. Hypovolemic hyponatremia improved with IV fluids. 4. Hypokalemia from intracellular shifting from IV bicarb. Replaced. Better. 5. Metabolic acidosis secondary to acute kidney injury. Status post bicarb drip. Improved. Now on oral bicarb. 6. Recently diagnosed diabetes mellitus. Plan: Maintain IV fluids. Replace potassium and magnesium. Maintain Onofre catheter. Okay to DC Onofre catheter from nephrology standpoint. Continue to hold diuretics. Avoid nephrotoxins. Continue to monitor renal function and urine output.
[2024-03-10 11:58] LABS: Glucose,Whole Blood 138 mg/dL (70-110)
[2024-03-10] MEDS: ONDANSETRON 4 MG/2 ML VIAL IVP PRN (12:04)
[2024-03-10 16:18] LABS: Glucose,Whole Blood 108 mg/dL (70-110)
[2024-03-10] MEDS: PANTOPRAZOLE 40 MG TABLET PO SCH (18:04)
[2024-03-10 20:10] LABS: Glucose,Whole Blood 232 mg/dL (70-110)
[2024-03-11 06:03] LABS: Glucose,Whole Blood 112 mg/dL (70-110)
[2024-03-11 08:58] LABS: African American GFR (CKD) 79 (>60 ml/min/1.73 sqM); Anion Gap 13 mmol/L; Blood Urea Nitrogen 33 mg/dL (9-20); Carbon Dioxide 20 mmol/L (22-30); Chloride 104 mmol/L (98-107); Glucose 84 mg/dL (74-99); Non-African American GFR(CKD) 68 (>60 ml/min/1.73 sqM); Potassium 4.4 mmol/L (3.5-5.1); Sodium 137 mmol/L (137-145)
[2024-03-11] MEDS ORDERED: Magnesium Replacement Protocol 1 EACH MISC MISCELLANE PRN (09:38)
[2024-03-11] MEDS: MAGNESIUM SULFATE-D5W PMX 1 GM in DEXTROSE/WATER 1 100ML.BAG IVPB SCH (10:08)
--- NOTE | 2024-03-11 10:50 | P.PN ---
Subjective Patient is seen in follow-up for acute kidney injury. Renal function continues to improve with IV fluids. Feels better today. No active complaints. Vital signs are stable. General: No acute distress. HEENT: Head exam is unremarkable. LUNGS: No audible rhonchi or wheezes. HEART: Rate and Rhythm are regular. ABDOMEN: Nontender. EXTREMITITES: No edema. Objective - Vital Signs Vital signs: Vital Signs Temp 98.4 F 03/11/24 08:29 Pulse 87 03/11/24 08:29 Resp 16 03/11/24 08:29 BP 133/84 03/11/24 08:29 Pulse Ox 98 03/11/24 08:29 FiO2 Intake & Output 03/10/24 03/11/24 03/11/24 18:59 06:59 18:59 Intake Total 480 120 Output Total 2500 1150 400 Balance -2019 -0 -280 Weight 88.1 kg Intake: Oral 480 120 Output: Urine 2500 1150 400 Other: Voiding Method Indwelling Catheter Indwelling Catheter Indwelling Catheter # Bowel Movements 1 - Labs CBC & Chem 7: 03/10/24 07:00 03/11/24 07:19 Labs: Abnormal Lab Results - Last 24 Hours (Table) 03/10/24 03/10/24 03/11/24 Range/Units 11:57 20:09 06:00 Carbon Dioxide (22-30) mmol/L BUN (9-20) mg/dL Creatinine (0.66-1.25) mg/dL POC Glucose (mg/dL) 138 H 232 H 112 H (70-110) mg/dL Calcium (8.4-10.2) mg/dL Magnesium (1.6-2.3) mg/dL 03/11/24 Range/Units 07:19 Carbon Dioxide 20 L (22-30) mmol/L BUN 33 H (9-20) mg/dL Creatinine 1.36 H (0.66-1.25) mg/dL POC Glucose (mg/dL) (70-110) mg/dL Calcium 7.0 L (8.4-10.2) mg/dL Magnesium 1.0 L (1.6-2.3) mg/dL Assessment and Plan Plan: Assessment: 1. Acute kidney injury secondary to ATN secondary to hypovolemia from use of diuretics and further worsen with the use of OBED inhibitor as well as NSAIDs. Creatinine 10.7 on admission and is 1.36 today. Nonoliguric. No hydronephrosis noted on CAT scan. Baseline creatinine near 0.6. 2. Alcohol induced liver cirrhosis. 3. Hypovolemic hyponatremia improved with IV fluids. 4. Hypokalemia from intracellular shifting from IV bicarb. Replaced. Better. 5. Metabolic acidosis secondary to IV fluids. On oral bicarb. 6. Recently diagnosed diabetes mellitus. 7. Hypomagnesemia from poor intake and post ATN diuresis. Plan: Maintain IV fluids - decrease rate to 75 cc an hour. Magnesium being replaced. Okay to DC Onofre catheter from nephrology standpoint. Continue to hold diuretics. Avoid nephrotoxins. Continue to monitor renal function and urine output.
[2024-03-11 11:25] LABS: Glucose,Whole Blood 104 mg/dL (70-110)
[2024-03-11 16:34] LABS: Glucose,Whole Blood 123 mg/dL (70-110)
[2024-03-11 20:14] LABS: Glucose,Whole Blood 156 mg/dL (70-110)
--- NOTE | 2024-03-11 20:40 | P.PN ---
Subjective Progress Note Date: 03/11/24 Patient is a 33-year-old male with a past medical history significant for hypertension, diabetes, liver cirrhosis, end stage renal disease, and alcohol abuse with past withdrawal tremors presented with a small amount of bright red blood per rectum for about a week. He has experienced bright red blood per rectum one other time and was told he has hemorrhoids. He states that he went to his primary care physician who provided him with suppositories and Preparation H as that helped him last time. He has not been able to use the suppositories as it causes him pain to insert and Preparation H has not helped him either. Yesterday morning he had a bowel movement with blood but yesterday afternoon his bowel movement was without blood. He endorses soft stools without the use of stool softeners. He endorses pain with bowel movements. He states that his last drink was about [address] abdomen: Stable hepatocellular disease with past medically, cirrhosis as well as splenomegaly, perisplenic and perigastric varices identified, abdominal pelvic ascites similar in appearance when compared to the prior study. WBCs 10.8, hemoglobin 12.4, hematocrit 37.1, MCV 107, sodium 123, chloride 86, CO2 11, BUN 86, creatinine 10.72, GFR 6, calcium 7.8, total bilirubin 7.8, AST 100, ALT 35, alkaline phosphatase 400. Afebrile, normotensive, saturating well on room air. 03/10. Patient seen and examined laying in bed. WBCs 9.9, hemoglobin 11.9, MCV 109.4, platelets 134, INR 1.7, sodium 133, potassium 3.6, CO2 25, BUN 66, creatinine 2.72, ammonia 48. He reports feeling better. He denies any bowel movements and has not used the suppository. 03/11/2024 Patient is evaluated today resting in bed. Reports constipatin and states he is continuing to have blood per rectum felt to be hemorrhoids and states he will be using the suppository later on today. He declined a laxative or stool softener. Remains on normal saline running at 75 mls/hr. Creatinine improved down to 1.36 today, BUN of 33. Magnesium level is 1.0. Review of systems: Pertinent positives and negatives as discussed in HPI, a complete review of systems was performed and all other systems are negative. Physical examination: Vital signs are reviewed. General: No acute distress. AOx4. HEENT: Head exam is unremarkable. EOMI bilaterally. ACs patent. Nares patent. Lungs: Bilateral breath sounds present; no rhonchi, wheezes, or rales. Heart: Rate and rhythm are regular. S1-S2 present. No murmur/rub/gallops. Abdomen: Soft, nontender, ascites present. Bowel sounds present. Extremities: No edema present. Symmetric movement. Psych: Normal affect and mood. Cooperative. Assessment/Plan: Hypovolemic hyponatremia Metabolic acidosis secondary to uremia Status post bicarb drip Currently on normal saline at a decreased rate of 75 cc/h Acute kidney injury secondary to ATN secondary to hypovolemia Nephrology following and creatinine is significantly improved to 1.36 Patient continues on oral sodium bicarbonate tablets Nephrology consultation Repeat blood work in the AM. Hypertension Do not resume home medications due to kidney failure Lisinopril, clonidine, aldactone and lasix remain on hold. Monitor vitals Diabetes mellitus type 2 Insulin sliding scale Monitor glucose Hemorrhoids Anusol 25 mg twice daily Liver cirrhosis Monitor volume status DVT prophylaxis: Mechanical Chronic conditions: Hypertension, alcohol abuse, liver cirrhosis, end-stage renal disease, diabetes mellitus type 2 Full Code The impression and plan of care has been dictated by Racheal Marroquin, Nurse Practitioner as directed. Dr. Asim MD I have performed a history and physical examination and medical decision making of this patient, discussed the same with the dictator, and agree with the dictators assessment and plan as written, documented as a scribe. Based on total visit time, I have performed more than 50% of this visit. Objective - Vital Signs Vital signs: Vital Signs Temp 98.4 F 03/11/24 08:29 Pulse 87 03/11/24 08:29 Resp 16 03/11/24 08:29 BP 133/84 03/11/24 08:29 Pulse Ox 98 03/11/24 08:29 FiO2 Intake & Output 03/10/24 03/11/24 03/11/24 18:59 06:59 18:59 Intake Total 480 120 Output Total 2500 1150 400 Balance -2019 -0 -280 Weight 88.1 kg Intake: Oral 480 120 Output: Urine 2500 1150 400 Other: Voiding Method Indwelling Catheter Indwelling Catheter Indwelling Catheter # Bowel Movements 1 - Labs CBC & Chem 7: 03/10/24 07:00 03/11/24 07:19 Labs: Abnormal Lab Results - Last 24 Hours (Table) 03/10/24 03/10/24 03/11/24 Range/Units 11:57 20:09 06:00 Carbon Dioxide (22-30) mmol/L BUN (9-20) mg/dL Creatinine (0.66-1.25) mg/dL POC Glucose (mg/dL) 138 H 232 H 112 H (70-110) mg/dL Calcium (8.4-10.2) mg/dL Magnesium (1.6-2.3) mg/dL 03/11/24 Range/Units 07:19 Carbon Dioxide 20 L (22-30) mmol/L BUN 33 H (9-20) mg/dL Creatinine 1.36 H (0.66-1.25) mg/dL POC Glucose (mg/dL) (70-110) mg/dL Calcium 7.0 L (8.4-10.2) mg/dL Magnesium 1.0 L (1.6-2.3) mg/dL Assessment and Plan Time with Patient: Less than 30
[2024-03-12 06:01] LABS: Glucose,Whole Blood 95 mg/dL (70-110)
[2024-03-12 08:30] LABS: African American GFR (CKD) >90 (>60 ml/min/1.73 sqM); Anion Gap 12 mmol/L; Blood Urea Nitrogen 17 mg/dL (9-20); Calcium 6.9 mg/dL (8.4-10.2); Carbon Dioxide 19 mmol/L (22-30); Chloride 105 mmol/L (98-107); Glucose 65 mg/dL (74-99); Magnesium 1.2 mg/dL (1.6-2.3); Non-African American GFR(CKD) >90 (>60 ml/min/1.73 sqM); Potassium 4.5 mmol/L (3.5-5.1); Sodium 136 mmol/L (137-145)
--- NOTE | 2024-03-12 11:33 | P.PN ---
Subjective Progress Note Date: 03/12/24 Patient is a 33-year-old male with a past medical history significant for hypertension, diabetes, liver cirrhosis, end stage renal disease, and alcohol abuse with past withdrawal tremors presented with a small amount of bright red blood per rectum for about a week. He has experienced bright red blood per rectum one other time and was told he has hemorrhoids. He states that he went to his primary care physician who provided him with suppositories and Preparation H as that helped him last time. He has not been able to use the suppositories as it causes him pain to insert and Preparation H has not helped him either. Yesterday morning he had a bowel movement with blood but yesterday afternoon his bowel movement was without blood. He endorses soft stools without the use of stool softeners. He endorses pain with bowel movements. He states that his last drink was about [address] abdomen: Stable hepatocellular disease with past medically, cirrhosis as well as splenomegaly, perisplenic and perigastric varices identified, abdominal pelvic ascites similar in appearance when compared to the prior study. WBCs 10.8, hemoglobin 12.4, hematocrit 37.1, MCV 107, sodium 123, chloride 86, CO2 11, BUN 86, creatinine 10.72, GFR 6, calcium 7.8, total bilirubin 7.8, AST 100, ALT 35, alkaline phosphatase 400. Afebrile, normotensive, saturating well on room air. 03/10. Patient seen and examined laying in bed. WBCs 9.9, hemoglobin 11.9, MCV 109.4, platelets 134, INR 1.7, sodium 133, potassium 3.6, CO2 25, BUN 66, creatinine 2.72, ammonia 48. He reports feeling better. He denies any bowel movements and has not used the suppository. 03/11. Patient is evaluated today resting in bed. Reports constipatin and states he is continuing to have blood per rectum felt to be hemorrhoids and s tates he will be using the suppository later on today. He declined a laxative or stool softener. Remains on normal saline running at 75 mls/hr. Creatinine improved down to 1.36 today, BUN of 33. Magnesium level is 1.0. 03/12. Patient seen at bedside. Sodium 136, potassium 4.5, BUN 17, creatinine 0.99, magnesium 1.2. Continues to endorse bright red blood per rectum that he attributes to hemorrhoids. Using suppositories, declined stool softeners and laxatives at this time. Review of systems: Pertinent positives and negatives as discussed in HPI, a complete review of systems was performed and all other systems are negative. Physical examination: Vital signs are reviewed. General: No acute distress. AOx4. HEENT: Head exam is unremarkable. EOMI bilaterally. ACs patent. Nares pat ent. Lungs: Bilateral breath sounds present; no rhonchi, wheezes, or rales. Heart: Rate and rhythm are regular. S1-S2 present. No murmur/rub/gallops. Abdomen: Soft, nontender, ascites present. Bowel sounds present. Extremities: No edema present. Symmetric movement. Psych: Normal affect and mood. Cooperative. Assessment/Plan: Hypovolemic hyponatremia, improved Metabolic acidosis secondary to uremia Currently on normal saline 75 cc/h Acute kidney injury secondary to ATN secondary to hypovolemia Resolved - creatinine 0.99 Nephrology following Bright red blood per rectum, likely due to hemorrhoids Consult surgery Hypertension Do not resume home medications due to kidney failure-pending further nephrology recommendations Monitor vitals Hypomagnesemia Magnesium replacement with 4 g given slowly yesterday Diabetes mellitus type 2 Insulin sliding scale Monitor glucose Hemorrhoids Anusol 25 mg twice daily Liver cirrhosis Monitor volume status DVT prophylaxis: Mechanical Chronic conditions: Hypertension, alcohol abuse, liver cirrhosis, end-stage renal disease, diabetes mellitus type 2 Dr. Asim MD I have performed a history and physical examination and medical decision making of this patient, discussed the same with the the resident, and agree with the assessment and plan as written. I performed brief physical exam. Objective - Vital Signs Vital signs: Vital Signs Temp 98.3 F 03/12/24 04:00 Pulse 110 H 03/12/24 04:00 Resp 20 03/12/24 04:00 BP 145/77 03/12/24 04:00 Pulse Ox 99 03/12/24 04:00 FiO2 Intake & Output 03/11/24 03/11/24 03/12/24 06:59 18:59 06:59 Intake Total 900 Output Total 1150 1300 750 Balance -1150 -400 -750 Weight 88.1 kg 89.2 kg Intake: Oral 900 Output: Urine 1150 1300 750 Other: Voiding Method Indwelling Catheter Urinal Urinal # Voids 1 # Bowel Movements 1 - Labs CBC & Chem 7: 03/13/24 07:49 03/12/24 07:01 Labs: Abnormal Lab Results - Last 24 Hours (Table) 03/11/24 03/11/24 03/11/24 Range/Units 07:19 16:33 20:13 Carbon Dioxide 20 L (22-30) mmol/L BUN 33 H (9-20) mg/dL Creatinine 1.36 H (0.66-1.25) mg/dL POC Glucose (mg/dL) 123 H 156 H (70-110) mg/dL Calcium 7.0 L (8.4-10.2) mg/dL Magnesium 1.0 L (1.6-2.3) mg/dL
[2024-03-12 11:43] LABS: Glucose,Whole Blood 86 mg/dL (70-110)
--- NOTE | 2024-03-12 12:25 | P.PN ---
Subjective patient is seen for follow-up for acute kidney injury. Renal function has improved with creatinine down to 0.9 mg/dL. Patient is maintained on IV fluids at 75 mL an hour. Patient states that he has noticed blood while urinating when he has a bowel movement. He also believes he has hemorrhoids. Onofre catheter was removed a couple of days ago. Objective - Vital Signs Vital signs: Vital Signs Temp 98.5 F 03/12/24 08:47 Pulse 102 H 03/12/24 12:12 Resp 18 03/12/24 12:12 BP 144/81 03/12/24 12:12 Pulse Ox 97 03/12/24 12:12 FiO2 Intake & Output 03/11/24 03/12/24 03/12/24 18:59 06:59 18:59 Intake Total 900 Output Total 1300 750 Balance -400 -750 Weight 89.2 kg Intake: Oral 900 Output: Urine 1300 750 Other: Voiding Method Urinal Urinal Urinal # Voids 1 # Bowel Movements 1 - Exam patient is awake, comfortable, no acute distress. Examination of the heart S1 and S2 Examination of the lungs bilateral breath sounds are heard Abdomen is soft nontender Examination of lower extremities shows no significant edema STARCH TREATING ASSISTANT exam grossly intact - Labs CBC & Chem 7: 03/10/24 07:00 03/12/24 07:01 Labs: Abnormal Lab Results - Last 24 Hours (Table) 03/11/24 03/11/24 03/12/24 Range/Units 16:33 20:13 07:01 Sodium 136 L (137-145) mmol/L Carbon Dioxide 19 L (22-30) mmol/L Glucose 65 L (74-99) mg/dL POC Glucose (mg/dL) 123 H 156 H (70-110) mg/dL Calcium 6.9 L (8.4-10.2) mg/dL Magnesium 1.2 L (1.6-2.3) mg/dL Assessment and Plan Assessment: 1. Acute kidney injury secondary to ATN and hypovolemia from use of diuretics and further worsened with the use of OBED inhibitor and NSAIDs. Creatinine 10.7 on admission and is 0.9 today. Nonoliguric. No hydronephrosis noted on CAT scan. Baseline creatinine near 0.6. 2. Alcohol induced liver cirrhosis. 3. Hypovolemic hyponatremia improved with IV fluids. 4. Hypokalemia from intracellular shifting from IV bicarb. Replaced. Better. 5. Metabolic acidosis secondary to IV fluids. On oral bicarb. 6. Recently diagnosed diabetes mellitus. 7. Hypomagnesemia from poor intake and post ATN diuresis. 8. Hematuria, most likely traumatic from recent Onofre catheter. If this persists or worsens we can consult urology. Plan: continue with sodium bicarb. Change IV fluids to Ringer lactate Encourage increased oral intake Consult urology if hematuria persists or worsens
[2024-03-12] MEDS: LACTATED RINGERS 1,000 ML IV SCH (12:43)
--- NOTE | 2024-03-12 12:58 | P.GSCN ---
History of Present Illness Consult date: 03/12/24 History of present illness: CHIEF COMPLAINT: Bleeding hemorrhoids HISTORY OF PRESENT ILLNESS: This is a 33-year-old male who presented the hospital with rectal bleeding x 4 days. He has had similar bleeding from hemorrhoids in the past that improved with suppositories. Patient went to see his primary care 2 days ago and was unable to use the suppositories. He was passing bright red blood. He had pain with the bowel movements. Bleeding with his bowel movements. There is also pain and discomfort with sitting. He reports that the hemorrhoids bulge during the bowel movement and then retract. She has never had a colonoscopy. He does have a prior history of heavy alcohol use and liver cirrhosis. Last alcoholic drink was about a week ago. Also admitted to the hospital with acute kidney injury and followed by nephrology. Kidney function has improved. Patient also reports some bleeding from the penis after the Onofre catheter has been removed. PAST MEDICAL HISTORY: Hypertension, liver cirrhosis, Nephrolithiasis, ETOH abuse with past withdrawal tremors, past alcoholic hepatitis/acute severe kidney injury/hyperphosphatemia/acute metabolic encephalopathy from renal failure. PAST SURGICAL HISTORY: Cholecystectomy MEDICATIONS: See below ALLERGIES: See below SOCIAL HISTORY: No illicit drug use. REVIEW OF SYSTEMS: CONSTITUTIONAL: Denies fever or chills. HEENT: Denies blurred vision, vision changes, or eye pain. Denies hemoptysis CARDIOVASCULAR: Denies chest pain or pressure. RESPIRATORY: No shortness of breath. GASTROINTESTINAL: See HPI for pertinent findings HEMATOLOGIC: Denies bleeding disorders. GENITOURINARY: Denies any blood in urine or increased urinary frequency. SKIN: Denies pruitis. Denies rash. PHYSICAL EXAM: VITAL SIGNS: Reviewed GENERAL: Well-developed in no acute distress. HEENT: No sclera icterus. Extraocular movements grossly intact. Moist buccal mucosa. Head is atraumatic, normocephalic. No nasal drainage. ABDOMEN: Soft. Nondistended. Nontender. Reducible umbilical hernia NEUROLOGIC: Alert and oriented. Cranial nerves II through XII grossly intact. LABORATORY DATA: WBC 9.9 hemoglobin 12.4 down to 11.9 platelets 134 Sodium 124 up to 136 potassium 4.5 creatinine 10 down to 0.99 magnesium 1.2 and being replaced IMAGING: CT scan abdomen pelvis reports stable hepatocellular disease with hepatomegaly, cirrhosis as well splenomegaly. Perisplenic and perigastric varices identified. Abdominal pelvic ascites similar in appearance when compared to prior study. ASSESSMENT: 1. Acute GI bleed with bright red blood per rectum likely related to bleeding hemorrhoids 2. Hypomagnesemia 3. Acute kidney injury improved. Followed by nephrology 4. Hyponatremia improved PLAN: -No surgical intervention planned at this time -Continue Anusol suppositories -continue to monitor hemoglobin -Continue to monitor for any signs or symptoms of bleeding -Magnesium being replaced Physician Health Actuary note has been reviewed by physician. Signing provider agrees with the documented findings, assessment, and plan of care. Past Medical History Past Medical History: Hypertension Additional Past Medical History / Comment(s): Nephrolithiasis, ETOH abuse with past withdrawal tremors, past alcoholic hepatitis/acute severe kidney injur y/hyperphosphatemia/acute metabolic encephalopathy from renal failure. History of Any Multi-Drug Resistant Organisms: None Reported Past Surgical History: Cholecystectomy, Tonsillectomy Past Anesthesia/Blood Transfusion Reactions: No Reported Reaction Past Psychological History: No Psychological Hx Reported Additional Psychological History / Comment(s): Pt resides with his mother. He is independent. Smoking Status: Current every day smoker Past Alcohol Use History: Abuse, Daily Additional Past Alcohol Use History / Comment(s): Pt started smoking as a teen and is a ppd smoker. He states he was drinking a pint of vodka a day prior to getting his gallbladder out but since then he drinks more occationally. Past Drug Use History: Cocaine, Marijuana Additional Drug Use History / Comment(s): Pt states he smokes 1 joint every day - Past Family History Father Family Medical History: Myocardial Infarction ([place]) Mother Family Medical History: Hypertension Additional Family Medical History / Comment(s): heart stent Medications and Allergies Home Medications Medication Instructions Recorded Confirmed Type Pantoprazole [Protonix] 40 mg PO DAILY 09/22/23 03/08/24 History Thiamine [Vitamin B-1] 100 mg PO DAILY #30 tab 09/30/23 03/08/24 Rx Folic Acid 1 mg PO DAILY 02/20/24 03/08/24 History Furosemide [Lasix] 20 mg PO DAILY #30 tab 02/21/24 03/08/24 Rx Spironolactone [Aldactone] 25 mg PO DAILY #30 tablet 02/21/24 03/08/24 Rx cloNIDine HCL [Catapres] 0.1 mg PO BID #60 tab 02/21/24 03/08/24 Rx lisinopriL [Zestril] 10 mg PO DAILY #30 tab 02/21/24 03/08/24 Rx Dapagliflozin Propanediol [Farxiga] 10 mg PO DIRECTED 03/08/24 03/08/24 History Glucagon Emergency Kit 1 mg IM ONCE PRN 03/08/24 03/08/24 History Hydrocortisone Pr Cream 1 applic RECTAL QID 03/08/24 03/08/24 History [Proctosol-Hc 2.5%] Insulin Glargine,Hum.rec.anlog 30 units SQ W/SUPPER 03/08/24 03/08/24 History [Lantus Solostar Pen] Insulin Lispro [Insulin Lispro See Protocol SQ DIRECTED 03/08/24 03/08/24 History Kwikpen [id number]] Allergies Allergy/AdvReac Type Severity Reaction Status Date / Time No Known Allergies Allergy Verified 03/08/24 12:24 Surgical - Exam Vital Signs Temp Pulse Resp BP Pulse Ox 98.1 F 18 L 18 130/73 96 03/08/24 11:52 03/08/24 11:52 03/08/24 11:52 03/08/24 11:52 03/08/24 11:52 Results - Labs 03/10/24 07:00 03/12/24 07:01 Abnormal Lab Results - Last 24 Hours (Table) 03/11/24 03/11/24 03/12/24 Range/Units 16:33 20:13 07:01 Sodium 136 L (137-145) mmol/L Carbon Dioxide 19 L (22-30) mmol/L Glucose 65 L (74-99) mg/dL POC Glucose (mg/dL) 123 H 156 H (70-110) mg/dL Calcium 6.9 L (8.4-10.2) mg/dL Magnesium 1.2 L (1.6-2.3) mg/dL Diabetes panel 03/12/24 Range/Units 07:01 Sodium 136 L (137-145) mmol/L Potassium 4.5 (3.5-5.1) mmol/L Chloride 105 (98-107) mmol/L Carbon Dioxide 19 L (22-30) mmol/L BUN 17 (9-20) mg/dL Creatinine 0.99 (0.66-1.25) mg/dL Glucose 65 L (74-99) mg/dL Calcium 6.9 L (8.4-10.2) mg/dL Calcium panel 03/12/24 Range/Units 07:01 Calcium 6.9 L (8.4-10.2) mg/dL Pituitary panel 03/12/24 Range/Units 07:01 Sodium 136 L (137-145) mmol/L Potassium 4.5 (3.5-5.1) mmol/L Chloride 105 (98-107) mmol/L Carbon Dioxide 19 L (22-30) mmol/L BUN 17 (9-20) mg/dL Creatinine 0.99 (0.66-1.25) mg/dL Glucose 65 L (74-99) mg/dL Calcium 6.9 L (8.4-10.2) mg/dL Adrenal panel 03/12/24 Range/Units 07:01 Sodium 136 L (137-145) mmol/L Potassium 4.5 (3.5-5.1) mmol/L Chloride 105 (98-107) mmol/L Carbon Dioxide 19 L (22-30) mmol/L BUN 17 (9-20) mg/dL Creatinine 0.99 (0.66-1.25) mg/dL Glucose 65 L (74-99) mg/dL Calcium 6.9 L (8.4-10.2) mg/dL
[2024-03-12 13:38] LABS: INR 1.6 (<1.2); Prothrombin Time 16.7 sec (10.0-12.5)
[2024-03-12 16:27] LABS: Glucose,Whole Blood 134 mg/dL (70-110)
[2024-03-12 19:10] LABS: Appearance,Urine Clear (Clear); Bilirubin,Urine 1+ (Negative); Blood,Urine Moderate (Negative); Color,Urine Yellow; Glucose,Urine (UA) 4+ (Negative); Ketones,Urine Negative (Negative); Leukocyte Esterase,Urine Negative (Negative); Mucus,Urine Rare /hpf; Nitrite,Urine Negative (Negative); Protein,Urine Trace (Negative); RBC,Urine 32 /hpf (0-5); Specific Gravity,Urine 1.017 (1.001-1.035); Urobilinogen,Urine <2.0 mg/dL (<2.0); WBC,Urine 4 /hpf (0-5)
[2024-03-12 20:08] LABS: Glucose,Whole Blood 134 mg/dL (70-110)
[2024-03-12] MEDS: MAGNESIUM SULFATE-D5W PMX 1 GM in DEXTROSE/WATER 1 100ML.BAG IVPB SCH (21:49)
[2024-03-13 06:18] LABS: Glucose,Whole Blood 88 mg/dL (70-110)
[2024-03-13 08:23] LABS: HCT 43.7 % (39.0-53.0); HGB 13.1 gm/dL (13.0-17.5); Hypochromasia Marked; MCH 36.1 pg (25.0-35.0); Macrocytosis Marked; Mean Platelet Volume 8.4; RBC 3.63 m/uL (4.30-5.90); RDW 12.1 % (11.5-15.5); WBC 13.3 k/uL (3.8-10.6)
[2024-03-13 08:54] LABS: MCV 120.4 fL (80.0-100.0)
[2024-03-13 09:37] LABS: Platelet Count 176 k/uL (150-450)
[2024-03-13] MEDS: MAGNESIUM SULFATE-D5W PMX 1 GM in DEXTROSE/WATER 1 100ML.BAG IVPB SCH (10:11)
[2024-03-13 12:07] LABS: Glucose,Whole Blood 89 mg/dL (70-110)
[2024-03-13 12:17] LABS: ALT 42 U/L (4-49); AST 156 U/L (17-59); African American GFR (CKD) >90 (>60 ml/min/1.73 sqM); Albumin 3.8 g/dL (3.5-5.0); Alkaline Phosphatase 345 U/L (38-126); Anion Gap 10 mmol/L; Blood Urea Nitrogen 11 mg/dL (9-20); Carbon Dioxide 20 mmol/L (22-30); Chloride 107 mmol/L (98-107); Glucose 98 mg/dL (74-99); Non-African American GFR(CKD) >90 (>60 ml/min/1.73 sqM); Potassium 4.4 mmol/L (3.5-5.1); Sodium 137 mmol/L (137-145); Total Bilirubin 6.9 mg/dL (0.2-1.3); Total Protein 7.7 g/dL (6.3-8.2)
--- NOTE | 2024-03-13 13:10 | P.PN ---
Subjective Progress Note Date: 03/13/24 CHIEF COMPLAINT: Bleeding hemorrhoids HISTORY OF PRESENT ILLNESS: Patient has had no further bleeding today. He reports he only had bleeding yesterday with the bowel movement. He has been using the Anusol suppositories. Hemoglobin stable at 11.9. Low-grade temp 100.1. WBC 13.3 hemoglobin up from 11.9-13.1 magnesium 1.6 Patient seen and examined with Dr. Montelongo PHYSICAL EXAM: VITAL SIGNS: Reviewed. GENERAL: Well-developed in no acute distress. ABDOMEN: Soft. Nondistended. Nontender. NEUROLOGIC: Alert and oriented. Cranial nerves II through XII grossly intact. ASSESSMENT: 1. Acute GI bleed with bright red blood per rectum likely related to bleeding hemorrhoids 2. History of liver cirrhosis and daily alcohol use PLAN: -No surgical intervention planned during this admission -Recommend outpatient follow-up regarding the hemorrhoids -Continue the Anusol suppositories and supportive care -Patient counseled on to continue refraining from alcohol use Physician Power Plant Superintendent note has been reviewed by physician. Signing provider agrees with the documented findings, assessment, and plan of care. Objective - Vital Signs Vital signs: Vital Signs Temp 100.1 F H 03/13/24 11:46 Pulse 96 03/13/24 11:46 Resp 18 03/13/24 11:46 BP 130/71 03/13/24 11:46 Pulse Ox 98 03/13/24 11:46 FiO2 Intake & Output 03/12/24 03/13/24 03/13/24 18:59 06:59 18:59 Intake Total 238 350 Output Total 2500 900 1550 Balance -4058 -900 -1200 Weight 89.2 kg Intake: Oral 238 350 Output: Urine 2500 900 1550 Other: Voiding Method Urinal Urinal Urinal - Labs CBC & Chem 7: 03/13/24 07:49 03/13/24 11:41 Labs: Abnormal Lab Results - Last 24 Hours (Table) 03/12/24 03/12/24 03/12/24 Range/Units 13:07 16:25 18:50 WBC (3.8-10.6) k/uL RBC (4.30-5.90) m/uL MCV (80.0-100.0) fL MCH (25.0-35.0) pg MCHC (31.0-37.0) g/dL Macrocytosis PT 16.7 H (10.0-12.5) sec INR 1.6 H (<1.2) Carbon Dioxide (22-30) mmol/L POC Glucose (mg/dL) 134 H (70-110) mg/dL Calcium (8.4-10.2) mg/dL Total Bilirubin (0.2-1.3) mg/dL AST (17-59) U/L Alkaline Phosphatase (38-126) U/L Urine Protein Trace H (Negative) Urine Glucose (UA) 4+ H (Negative) Urine Blood Moderate H (Negative) Urine Bilirubin 1+ H (Negative) Urine RBC 32 H (0-5) /hpf Urine Mucus Rare H (None) /hpf 03/12/24 03/13/24 03/13/24 Range/Units 20:06 07:49 11:41 WBC 13.3 H (3.8-10.6) k/uL RBC 3.63 L (4.30-5.90) m/uL MCV 120.4 H D (80.0-100.0) fL MCH 36.1 H (25.0-35.0) pg MCHC 30.0 L (31.0-37.0) g/dL Macrocytosis Marked A PT (10.0-12.5) sec INR (<1.2) Carbon Dioxide 20 L (22-30) mmol/L POC Glucose (mg/dL) 134 H (70-110) mg/dL Calcium 7.0 L (8.4-10.2) mg/dL Total Bilirubin 6.9 H (0.2-1.3) mg/dL AST 156 H (17-59) U/L Alkaline Phosphatase 345 H (38-126) U/L Urine Protein (Negative) Urine Glucose (UA) (Negative) Urine Blood (Negative) Urine Bilirubin (Negative) Urine RBC (0-5) /hpf Urine Mucus (None) /hpf
--- NOTE | 2024-03-13 13:13 | P.PN ---
Subjective patient is seen for follow-up for acute kidney injury. Renal function has improved with creatinine down to 0.9 mg/dL. Patient is maintained on IV fluids at 75 mL an hour. Patient states that he had noticed blood while urinating when he has a bowel movement. He also believes he has hemorrhoids. Onofre catheter was removed on 03/11/2024. Urology has been consulted. Objective - Vital Signs Vital signs: Vital Signs Temp 100.1 F H 03/13/24 11:46 Pulse 96 03/13/24 11:46 Resp 18 03/13/24 11:46 BP 130/71 03/13/24 11:46 Pulse Ox 98 03/13/24 11:46 FiO2 Intake & Output 03/12/24 03/13/24 03/13/24 18:59 06:59 18:59 Intake Total 238 350 Output Total 2500 900 1550 Balance -9614 -900 1200 Weight 89.2 kg Intake: Oral 238 350 Output: Urine 2500 900 1550 Other: Voiding Method Urinal Urinal Urinal - Exam patient is awake, comfortable, no acute distress. alert and oriented 3 Examination of lower extremities shows no significant edema RHEUMATOLOGY NURSE exam grossly intact - Labs CBC & Chem 7: 03/13/24 07:49 03/13/24 11:41 Labs: Abnormal Lab Results - Last 24 Hours (Table) 03/12/24 03/12/24 03/12/24 Range/Units 13:07 16:25 18:50 WBC (3.8-10.6) k/uL RBC (4.30-5.90) m/uL MCV (80.0-100.0) fL MCH (25.0-35.0) pg MCHC (31.0-37.0) g/dL Macrocytosis PT 16.7 H (10.0-12.5) sec INR 1.6 H (<1.2) Carbon Dioxide (22-30) mmol/L POC Glucose (mg/dL) 134 H (70-110) mg/dL Calcium (8.4-10.2) mg/dL Total Bilirubin (0.2-1.3) mg/dL AST (17-59) U/L Alkaline Phosphatase (38-126) U/L Urine Protein Trace H (Negative) Urine Glucose (UA) 4+ H (Negative) Urine Blood Moderate H (Negative) Urine Bilirubin 1+ H (Negative) Urine RBC 32 H (0-5) /hpf Urine Mucus Rare H (None) /hpf 03/12/24 03/13/24 03/13/24 Range/Units 20:06 07:49 11:41 WBC 13.3 H (3.8-10.6) k/uL RBC 3.63 L (4.30-5.90) m/uL MCV 120.4 H D (80.0-100.0) fL MCH 36.1 H (25.0-35.0) pg MCHC 30.0 L (31.0-37.0) g/dL Macrocytosis Marked A PT (10.0-12.5) sec INR (<1.2) Carbon Dioxide 20 L (22-30) mmol/L POC Glucose (mg/dL) 134 H (70-110) mg/dL Calcium 7.0 L (8.4-10.2) mg/dL Total Bilirubin 6.9 H (0.2-1.3) mg/dL AST 156 H (17-59) U/L Alkaline Phosphatase 345 H (38-126) U/L Urine Protein (Negative) Urine Glucose (UA) (Negative) Urine Blood (Negative) Urine Bilirubin (Negative) Urine RBC (0-5) /hpf Urine Mucus (None) /hpf Assessment and Plan Assessment: 1. Acute kidney injury secondary to ATN and hypovolemia from use of diuretics and further worsened with the use of OBED inhibitor and NSAIDs. Creatinine 10.7 on admission and is 0.76 today. Nonoliguric. No hydronephrosis noted on CAT scan. Baseline creatinine near 0.6. 2. Alcohol induced liver cirrhosis. 3. Hypovolemic hyponatremia improved with IV fluids. 4. Hypokalemia from intracellular shifting from IV bicarb. Replaced. Better. 5. Metabolic acidosis secondary to IV fluids. On oral bicarb. 6. Recently diagnosed diabetes mellitus. 7. Hypomagnesemia from poor intake and post ATN diuresis. 8. Hematuria, most likely traumatic from recent Onofre catheter. urology on consult Plan: continue with sodium bicarb. Encourage increased oral intake okay for discharge from nephrology standpoint
[2024-03-13 15:31] VITALS: BP 131/79; PULSE 101; RESP 14; TEMP 98.9
--- NOTE | 2024-03-13 15:43 | P.DS ---
Providers Date of admission: 03/08/24 16:07 Attending physician: Agapito Nagy MD Consults: 03/08/24 15:52 Consult Physician Urgent Consulting Provider: Edwin Mehta Consult Reason/Comments: acute renal failure Do you want consulting provider notified?: Yes 03/12/24 11:17 Consult Physician Routine Consulting Provider: Neil Montelongo Consult Reason/Comments: hemorrhoidal bleed Do you want consulting provider notified?: Yes 03/12/24 12:56 Consult Physician Routine Consulting Provider: Mati Arango Consult Reason/Comments: hematuria Do you want consulting provider notified?: Yes Primary care physician: Gabe Flynn [facility] Course: Final Diagnosis Hypovolemic hyponatremia Metabolic acidosis secondary to uremia Acute kidney injury secondary to ATN secondary to hypovolemia Hypertension Diabetes mellitus type 2 with new onset diabetes in Feb. Hemorrhoids - Liver cirrhosis -Chronic alcoholism -Macrocytosis Check B12 and Folate levels outpatient -End stage renal disease Discharge Disposition Patient is evaluated today in follow-up and is stable for discharge. Per surgery will continue on Anusol suppository and Preparation H cream for the hemorrhoids and will follow-up in the office for this. Patient is advised to use stool softeners. His renal function has normalized and nephrology recommending to hold the lasix on discharge. Patient has been resumed on lisinopril and aldactone. Bilirubin trending down. Will need to see GI and continue to follow the trends for this outpatient. Hospital Course Patient is a 33-year-old male with a past medical history significant for hypertension, diabetes, liver cirrhosis, end stage renal disease, and alcohol abuse with past withdrawal tremors presented with a small amount of bright red blood per rectum for about a week. He has experienced bright red blood per rectum one other time and was told he has hemorrhoids. He states that he went to his primary care physician who provided him with suppositories and Preparation H as that helped him last time. He has not been able to use the suppositories as it causes him pain to insert and Preparation H has not helped him either. Yesterday morning he had a bowel movement with blood but yesterday afternoon his bowel movement was without blood. He endorses pain with bowel movements. He states that his last drink was about [address] abdomen: St able hepatocellular disease with past medically, cirrhosis as well as splenomegaly, perisplenic and perigastric varices identified, abdominal pelvic ascites similar in appearance when compared to the prior study. On admission his BUN was 86 and creatinine 10.72, total bilirubin 7.8, AST ALT and alk phos elevated on admission. He was admitted to the hospital with nephrology consultation. Lasix, Aldactone and lisinopril were placed on hold. Initially he was on a bicarb gtt and now on normal saline. His renal function has normalized currently BUN 11, creatinine 0.76. Bilirubin is down to 6.9. He has some hematuria and for this reason urology was consulted for evaluation. He has been urinating without difficulty and has not been retaining urine. Please see medication reconciliation for a list of current medications. Thank you for allowing us to participate in the care of this patient. The impression and plan of care has been dictated by Racheal Marroquin, Nurse Practitioner as directed. Dr. Asim MD I have performed a history and physical examination and medical decision making of this patient, discussed the same with the dictator, and agree with the dictators assessment and plan as written, documented as a scribe. Based on total visit time, I have performed more than 50% of this visit. Patient Condition at Discharge: Fair Plan - Discharge Summary Discharge Rx Participant: Yes New Discharge Prescriptions: New Nicotine 14Mg/24Hr Patch [Habitrol] 1 patch TRANSDERM DAILY #3 patch Sennosides-Docusate Sodium [Senokot-S] 1 tab PO DAILY PRN #30 tablet PRN Reason: Constipation Hydrocortisone Suppository [Anusol-Hc] 25 mg RECTAL BID 7 Days #14 suppositor Magnesium Oxide [Mag-Ox] 400 mg PO DAILY #30 tab Sodium Bicarbonate Tab 650 mg PO BID #60 tab Continue Thiamine [Vitamin B-1] 100 mg PO DAILY #30 tab Hydrocortisone Pr Cream [Proctosol-Hc 2.5%] 1 applic RECTAL QID Dapagliflozin Propanediol [Farxiga] 10 mg PO DIRECTED Pantoprazole [Protonix] 40 mg PO DAILY Folic Acid 1 mg PO DAILY Spironolactone [Aldactone] 25 mg PO DAILY #30 tablet lisinopriL [Zestril] 10 mg PO DAILY #30 tab Glucagon Emergency Kit 1 mg IM ONCE PRN PRN Reason: low blood sugar Insulin Glargine,Hum.rec.anlog [Lantus Solostar Pen] 30 units SQ W/SUPPER Insulin Lispro [Insulin Lispro Kwikpen U-100] See Protocol SQ DIRECTED Discontinued cloNIDine HCL [Catapres] 0.1 mg PO BID #60 tab Furosemide [Lasix] 20 mg PO DAILY #30 tab Discharge Medication List Pantoprazole [Protonix] 40 mg PO DAILY 09/22/23 [History] Thiamine [Vitamin B-1] 100 mg PO DAILY #30 tab 09/30/23 [Rx] Folic Acid 1 mg PO DAILY 02/20/24 [History] Spironolactone [Aldactone] 25 mg PO DAILY #30 tablet 02/21/24 [Rx] lisinopriL [Zestril] 10 mg PO DAILY #30 tab 02/21/24 [Rx] Dapagliflozin Propanediol [Farxiga] 10 mg PO DIRECTED 03/08/24 [History] Glucagon Emergency Kit 1 mg IM ONCE PRN 03/08/24 [History] Hydrocortisone Pr Cream [Proctosol-Hc 2.5%] 1 applic RECTAL QID 03/08/24 [History] Insulin Glargine,Hum.rec.anlog [Lantus Solostar Pen] 30 units SQ W/SUPPER 03/08/24 [History] Insulin Lispro [Insulin Lispro Kwikpen U-100] See Protocol SQ DIRECTED 03/08/24 [History] Hydrocortisone Suppository [Anusol-Hc] 25 mg RECTAL BID 7 Days #14 suppositor 03/13/24 [Rx] Magnesium Oxide [Mag-Ox] 400 mg PO DAILY #30 tab 03/13/24 [Rx] Nicotine 14Mg/24Hr Patch [Habitrol] 1 patch TRANSDERM DAILY #3 patch 03/13/24 [Rx] Sennosides-Docusate Sodium [Senokot-S] 1 tab PO DAILY PRN #30 tablet 03/13/24 [Rx] Sodium Bicarbonate Tab 650 mg PO BID #60 tab 03/13/24 [Rx] Follow up Appointment(s)/Referral(s): Radha Bravo MD [STAFF PHYSICIAN] - 1 Week Gabe Flynn DO [Primary Care Provider] - 1-2 days Neil Montelongo MD [STAFF PHYSICIAN] - 1 Week Ambulatory/Diagnostic Orders: Basic Metabolic Panel [LAB.AMB] Location: None Selected Complete Blood Count w/diff [LAB.AMB] Time Frame: 3 Days, Location: None Selected Magnesium [LAB.AMB] Time Frame: 4 Days, Location: None Selected Patient Instructions/Handouts: Hemorrhoids (DC) Activity/Diet/Wound Care/Special Instructions: Continue to hold Lasix on discharge Repeat blood work 2 to 3 days. Continue the annusol suppositories and stool softeners. Can also use over the counter miralax. Can you use witch rasheeda Tucks Pads on discharge also for discomfort from the hemorrhoids. Discharge Disposition: HOME SELF-CARE
[2024-03-13] MEDS ORDERED: NALOXONE 0.4 MG/ML 1 ML VIAL IV PRN (15:49)
[2024-03-13] MEDS ORDERED: ONDANSETRON 4 MG/2 ML VIAL IVP PRN (15:49)
== END 2024-03-13 16:34 | disposition home or self-care (01) | DRG 469 ==
LOC: EC 11:48 → 3SCARD 16:07 → 3NCARDOBS 03-13 11:22 → 3SCARD 03-13 11:22
PROVIDERS: ADMIT Internal Medicine; ATTEND Internal Medicine
DX: N17.0 Acute kidney failure with tubular necrosis (principal); N18.6 End stage renal disease; K70.30 Alcoholic cirrhosis of liver without ascites; K64.9 Unspecified hemorrhoids; T50.2X5A Adverse effect of carbonic-anhydrase inhibitors, benzothiadiazides and other diuretics, initial encounter; T39.315A Adverse effect of propionic acid derivatives, initial encounter; T46.5X5A Adverse effect of other antihypertensive drugs, initial encounter; I12.0 Hypertensive chronic kidney disease with stage 5 chronic kidney disease or end stage renal disease; F17.210 Nicotine dependence, cigarettes, uncomplicated; E87.6 Hypokalemia; E66.9 Obesity, unspecified; Z68.29 Body mass index [BMI] 29.0-29.9, adult; E86.1 Hypovolemia; E87.1 Hypo-osmolality and hyponatremia; F10.20 Alcohol dependence, uncomplicated; E83.42 Hypomagnesemia; E11.22 Type 2 diabetes mellitus with diabetic chronic kidney disease; D75.89 Other specified diseases of blood and blood-forming organs; E87.20 Acidosis, unspecified; Z79.4 Long term (current) use of insulin; Z79.899 Other long term (current) drug therapy; Z87.442 Personal history of urinary calculi; Z79.82 Long term (current) use of aspirin
CPT/HCPCS: 36415; 51798; 74176; 80048; 80053; 81001; 82140; 83605; 83735; 85025; 85027; 85610; 96361; 96365; 96375; 99285

== ENCOUNTER 2024-03-18 16:02 | Emergency (ER) | payer OTHER ==
[2024-03-18 16:26] VITALS: TEMP 97.6
--- NOTE | 2024-03-18 16:45 | ED ---
General Adult HPI - General Chief complaint: GI Bleed Stated complaint: GI Bleed Time Seen by Provider: 03/18/24 16:25 Source: patient, RN notes reviewed, old records reviewed Limitations: no limitations - History of Present Illness Initial comments: This is a 33-year-old male presenting to the emergency department complaining that he has some rectal bleeding from hemorrhoids. Patient states he supposed to have an appoint with the surgeon on Tuesday but he states he thinks he is losing too much blood so he wants to make sure he does not and so he came to the emergency department. Patient denies any lightheadedness or dizziness. Patient shortness of breath or difficulty breathing. Patient denies chest pain. Patient denies any fever chills or cough. - Related Data Home Medications Medication Instructions Recorded Confirmed Pantoprazole [Protonix] 40 mg PO DAILY 09/22/23 03/08/24 Folic Acid 1 mg PO DAILY 02/20/24 03/08/24 Dapagliflozin Propanediol [Farxiga] 10 mg PO DIRECTED 03/08/24 03/08/24 Glucagon Emergency Kit 1 mg IM ONCE PRN 03/08/24 03/08/24 Hydrocortisone Pr Cream 1 applic RECTAL QID 03/08/24 03/08/24 [Proctosol-Hc 2.5%] Insulin Glargine,Hum.rec.anlog 30 units SQ W/SUPPER 03/08/24 03/08/24 [Lantus Solostar Pen] Insulin Lispro [Insulin Lispro See Protocol SQ DIRECTED 03/08/24 03/08/24 Blaineikchristin U-100] Previous Rx's Medication Instructions Recorded Thiamine [Vitamin B-1] 100 mg PO DAILY #30 tab 09/30/23 Spironolactone [Aldactone] 25 mg PO DAILY #30 tablet 02/21/24 lisinopriL [Zestril] 10 mg PO DAILY #30 tab 02/21/24 Hydrocortisone Suppository 25 mg RECTAL BID 7 Days #14 03/13/24 [Anusol-Hc] suppositor Magnesium Oxide [Mag-Ox] 400 mg PO DAILY #30 tab 03/13/24 Nicotine 14Mg/24Hr Patch [Habitrol] 1 patch TRANSDERM DAILY #3 patch 03/13/24 Sennosides-Docusate Sodium 1 tab PO DAILY PRN #30 tablet 03/13/24 [Senokot-S] Sodium Bicarbonate Tab 650 mg PO BID #60 tab 03/13/24 Allergies Allergy/AdvReac Type Severity Reaction Status Date / Time No Known Allergies Allergy Verified 03/18/24 16:26 Review of Systems ROS Statement: Those systems with pertinent positive or pertinent negative responses have been documented in the HPI. ROS Other: All systems not noted in ROS Statement are negative. Past Medical History Past Medical History: Hypertension Additional Past Medical History / Comment(s): Nephrolithiasis, ETOH abuse with past withdrawal tremors, past alcoholic hepatitis/acute severe kidney injury/hyperphosphatemia/acute metabolic encephalopathy from renal failure. History of Any Multi-Drug Resistant Organisms: None Reported Past Surgical History: Cholecystectomy, Tonsillectomy Past Anesthesia/Blood Transfusion Reactions: No Reported Reaction Past Psychological History: No Psychological Hx Reported Smoking Status: Current every day smoker Past Alcohol Use History: Abuse, Daily Past Drug Use History: Cocaine, Marijuana - Past Family History Father Family Medical History: Myocardial Infarction ([place]) Mother Family Medical History: Hypertension Additional Family Medical History / Comment(s): heart stent General Exam - General Exam Comments Initial Comments: GENERAL: Patient is well-developed and well-nourished. Patient is nontoxic and well- hydrated and is in no acute distress. ENT: Neck is soft and supple. No significant lymphadenopathy is noted. Oropharynx is clear. Moist mucous membranes. Neck has full range of motion without eliciting any pain. EYES: The sclera were anicteric and conjunctiva were pink and moist. Extraocular movements were intact and pupils were equal round and reactive to light. Eyelids were unremarkable. ABDOMEN: Soft and nontender with normal bowel sounds. RECTAL: On rectal exam there was no obvious external hemorrhoid but he states when he has a bowel movement it bulges out. There was no obvious site of bleeding. SKIN: Skin is clear with no lesions or rashes and otherwise unremarkable. NEUROLOGIC: Patient is alert and oriented x3. Cranial nerves II through XII are grossly intact. Motor and sensory are also intact. Normal speech, volume and content. Symmetrical smile. MUSCULOSKELETAL: Normal extremities with adequate strength and full range of motion. LYMPHATICS: No significant lymphadenopathy is noted PSYCHIATRIC: Normal psychiatric evaluation. Limitations: no limitations Course Vital Signs 03/18/24 16:24 Temperature 97.6 F Pulse Rate 131 H Respiratory 20 Rate Blood Pressure 118/69 O2 Sat by Pulse 98 Oximetry Medical Decision Making - Medical Decision Making Was pt. sent in by a medical professional or institution (CARMEN Frey, [employer]ER, urgent care, hospital, or prison...) When possible be specific @ -No Did you speak to anyone other than the patient for history (EMS, parent, family, police, friend...)? What history was obtained from this source @ -No Did you review nursing and triage notes (agree or disagree)? Why? @ -I reviewed and agree with nursing and triage notes Were old charts reviewed (outside hosp., previous admission, EMS record, old EKG, old radiological studies, urgent care reports/EKG's, prison records)? Report findings @ -No old charts were reviewed Differential Diagnosis? @ -External hemorrhoids, internal hemorrhoids, GI bleed, this is not an all- inclusive list EKG interpreted by me (3pts min.). @ -As above X-rays interpreted by me (1pt min.). @ -None done CT interpreted by me (1pt min.). @ -None done U/S interpreted by me (1pt. min.). @ -None done What testing was considered but not performed or refused? (CT, X-rays, U/S, labs)? Why? @ -None What meds were considered but not given or refused? Why? @ -None Did you discuss the management of the patient with other professionals (professionals i.e. CARMEN Frey, ELECT[employer]IC W[employer]ER, lab, RT, psych nurse, social sciences lecturer, pipeline welder, teacher, wildlife conservation officer, gearcase assembler)? Give summary @ -No Was smoking cessation discussed for >3mins.? @ -No Was critical care preformed (if so, how long)? @ -No Were there social determinants of health that impacted care today? How? (Homelessness, low income, unemployed, alcoholism, drug addiction, transportation, low edu. Level, literacy, decrease access to med. care, group home, rehab)? @ -No Was there de-escalation of care discussed even if they declined (Discuss DNR or withdrawal of care, Hospice)? DNR status @ -No What co-morbidities impacted this encounter? (DM, HTN, Smoking, COPD, CAD, Cancer, CVA, ARF, Chemo, Hep., AIDS, mental health diagnosis, sleep apnea, morbid obesity)? @ -None Was patient admitted / discharged? Hospital course, mention meds given and route, prescriptions, significant lab abnormalities, going to OR and other pertinent info. @ -Patient's lab work did not show any drop in hemoglobin. Patient is a drinker. Patient will follow-up with the surgeon on Tuesday Undiagnosed new problem with uncertain prognosis? @ -No Drug Therapy requiring intensive monitoring for toxicity (Heparin, Nitro, Insulin, Cardizem)? @ -No Were any procedures done? @ -No Diagnosis/symptom? @ -Rectal bleeding Acute, or Chronic, or Acute on Chronic? @ -Default Uncomplicated (without systemic symptoms) or Complicated (systemic symptoms)? @ -Uncomplicated Side effects of treatment? @ -No Exacerbation, Progression, or Severe Exacerbation? @ -No Poses a threat to life or bodily function? How? (Chest pain, [place], [place], pneumonia, PE, COPD, DKA, ARF, appy, cholecystitis, CVA, Diverticulitis, Homicidal, Suicidal, threat to staff... and all critical care pts) @ -No - Lab Data Result diagrams: 03/18/24 16:52 03/18/24 16:52 Lab Results 03/18/24 03/18/24 Range/Units 16:52 16:52 WBC 15.2 H (3.8-10.6) k/uL RBC 3.42 L (4.30-5.90) m/uL Hgb 12.2 L (13.0-17.5) gm/dL Hct 38.5 L (39.0-53.0) % MCV 112.7 H D (80.0-100.0) fL MCH 35.5 H (25.0-35.0) pg MCHC 31.5 (31.0-37.0) g/dL RDW 12.5 (11.5-15.5) % Plt Count 223 (150-450) k/uL MPV 8.3 Hypochromasia Slight Macrocytosis Marked A Sodium 141 (137-145) mmol/L Potassium 4.2 (3.5-5.1) mmol/L Chloride 111 H (98-107) mmol/L Carbon Dioxide 18 L (22-30) mmol/L Anion Gap 12 mmol/L BUN 9 (9-20) mg/dL Creatinine 0.89 (0.66-1.25) mg/dL Est GFR (CKD-EPI)AfAm >90 (>60 ml/min/1.73 sqM) Est GFR (CKD-EPI)NonAf >90 (>60 ml/min/1.73 sqM) Glucose 139 H (74-99) mg/dL Calcium 8.9 (8.4-10.2) mg/dL Total Bilirubin 3.8 H (0.2-1.3) mg/dL AST 112 H (17-59) U/L ALT 43 (4-49) U/L Alkaline Phosphatase 438 H (38-126) U/L Total Protein 7.7 (6.3-8.2) g/dL Albumin 3.8 (3.5-5.0) g/dL Disposition Clinical Impression: Rectal bleeding Disposition: ADMITTED IP TO THIS [facility] Instructions (If sedation given, give patient instructions): Rectal Bleeding (ED) Additional Instructions: Patient should follow-up with his previous scheduled appointment with a surgeon for his hemorrhoids. Is patient prescribed a controlled substance at d/c from ED?: No Referrals: Gabe Flynn DO [Primary Care Provider] - 1-2 days Time of Disposition: 17:18
[2024-03-18 17:05] LABS: Basophils # (A) 0.1 k/uL (0-0.2); Basophils % (A) 0 %; Eosinophils # (A) 0.3 k/uL (0-0.7); Eosinophils % (A) 2 %; HCT 38.5 % (39.0-53.0); HGB 12.2 gm/dL (13.0-17.5); Hypochromasia Slight; Lymphocytes # (A) 2.1 k/uL (1.0-4.8); Lymphocytes % (A) 14 %; MCH 35.5 pg (25.0-35.0); MCHC 31.5 g/dL (31.0-37.0); Macrocytosis Marked; Mean Platelet Volume 8.3; Monocytes # (A) 0.6 k/uL (0-1.0); Monocytes % (A) 4 %; Neutrophils # (A) 11.8 k/uL (1.3-7.7); Neutrophils % (A) 78 %; Platelet Count 223 k/uL (150-450); RBC 3.42 m/uL (4.30-5.90); RDW 12.5 % (11.5-15.5); WBC 15.2 k/uL (3.8-10.6)
[2024-03-18 17:12] LABS: ALT 43 U/L (4-49); AST 112 U/L (17-59); African American GFR (CKD) >90 (>60 ml/min/1.73 sqM); Albumin 3.8 g/dL (3.5-5.0); Alkaline Phosphatase 438 U/L (38-126); Anion Gap 12 mmol/L; Blood Urea Nitrogen 9 mg/dL (9-20); Calcium 8.9 mg/dL (8.4-10.2); Carbon Dioxide 18 mmol/L (22-30); Chloride 111 mmol/L (98-107); Glucose 139 mg/dL (74-99); MCV 112.7 fL (80.0-100.0); Non-African American GFR(CKD) >90 (>60 ml/min/1.73 sqM); Potassium 4.2 mmol/L (3.5-5.1); Sodium 141 mmol/L (137-145); Total Bilirubin 3.8 mg/dL (0.2-1.3); Total Protein 7.7 g/dL (6.3-8.2)
[2024-03-18 18:28] VITALS: BP 131/77; PULSE 120; RESP 18
== END 2024-03-18 18:29 | disposition other institution (70) ==
LOC: EC 16:02
DX: K62.5 Hemorrhage of anus and rectum (principal)
CPT/HCPCS: 36415; 80053; 85025; 99285

== ENCOUNTER 2024-03-20 03:29 | Inpatient (IN) | payer OTHER ==
[2024-03-20] MEDS: LORazepam 2 MG/ML INJ IV PRN ×3 (03:48→09:18)
[2024-03-20] MEDS: SODIUM CHLORIDE 0.9% 1,000 ML IV STA ×2 (04:04→05:30)
--- NOTE | 2024-03-20 04:05 | ED ---
General Adult HPI - General Chief complaint: Alcohol Stated complaint: ETOH Time Seen by Provider: 03/20/24 03:34 Source: patient Mode of arrival: ambulatory Limitations: no limitations - History of Present Illness Initial comments: Dictation was produced using Ac[employer] dictation software. please excuse any grammatical, word or spelling errors. Chief Complaint: 33-year-old male presents emergency department for alcohol withdrawal History of Present Illness: Patient is a 33-year-old male presents that he has symptoms of alcohol withdrawal. Patient drinks approximate 1 point a day. Patient states that he has been trying to slow down. He has history of chronic hemorrhoid causing chronic rectal pain. Denies any abdominal pain. Patient states he does have a history of cirrhosis. Patient motivated to quit. Denies any abdominal pain. The ROS documented in this emergency department record has been reviewed and confirmed by me. Those systems with pertinent positive or negative responses have been documented in the HPI. All other systems are other negative and/or noncontributory. - Related Data Home Medications Medication Instructions Recorded Confirmed Pantoprazole [Protonix] 40 mg PO DAILY 09/22/23 03/08/24 Folic Acid 1 mg PO DAILY 02/20/24 03/08/24 Dapagliflozin Propanediol [Farxiga] 10 mg PO DIRECTED 03/08/24 03/08/24 Glucagon Emergency Kit 1 mg IM ONCE PRN 03/08/24 03/08/24 Hydrocortisone Pr Cream 1 applic RECTAL QID 03/08/24 03/08/24 [Proctosol-Hc 2.5%] Insulin Glargine,Hum.rec.anlog 30 units SQ W/SUPPER 03/08/24 03/08/24 [Lantus Solostar Pen] Insulin Lispro [Insulin Lispro See Protocol SQ DIRECTED 03/08/24 03/08/24 Kwikpen U-100] Previous Rx's Medication Instructions Recorded Thiamine [Vitamin B-1] 100 mg PO DAILY #30 tab 09/30/23 Spironolactone [Aldactone] 25 mg PO DAILY #30 tablet 02/21/24 lisinopriL [Zestril] 10 mg PO DAILY #30 tab 02/21/24 Hydrocortisone Suppository 25 mg RECTAL BID 7 Days #14 03/13/24 [Anusol-Hc] suppositor Magnesium Oxide [Mag-Ox] 400 mg PO DAILY #30 tab 03/13/24 Nicotine 14Mg/24Hr Patch [Habitrol] 1 patch TRANSDERM DAILY #3 patch 03/13/24 Sennosides-Docusate Sodium 1 tab PO DAILY PRN #30 tablet 03/13/24 [Senokot-S] Sodium Bicarbonate Tab 650 mg PO BID #60 tab 03/13/24 Allergies Allergy/AdvReac Type Severity Reaction Status Date / Time No Known Allergies Allergy Verified 03/20/24 03:36 Review of Systems ROS Statement: Those systems with pertinent positive or pertinent negative responses have been documented in the HPI. ROS Other: All systems not noted in ROS Statement are negative. Past Medical History Past Medical History: Hypertension, Liver Disease Additional Past Medical History / Comment(s): Nephrolithiasis, ETOH abuse with past withdrawal tremors, past alcoholic hepatitis/acute severe kidney injury/hyperphosphatemia/acute metabolic encephalopathy from renal failure. History of Any Multi-Drug Resistant Organisms: None Reported Past Surgical History: Cholecystectomy, Tonsillectomy Past Anesthesia/Blood Transfusion Reactions: No Reported Reaction Past Psychological History: No Psychological Hx Reported Smoking Status: Current every day smoker Past Alcohol Use History: Abuse, Daily Past Drug Use History: Cocaine, Marijuana - Past Family History Father Family Medical History: Myocardial Infarction ([place]) Mother Family Medical History: Hypertension Additional Family Medical History / Comment(s): heart stent General Exam - General Exam Comments Initial Comments: PHYSICAL EXAM: General Impression: Alert and oriented x3, tremulous, scleral icterus HEENT: Normocephalic atraumatic, extra-ocular movements intact, pupils equal and reactive to light bilaterally, mucous membranes moist. Cardiovascular: Heart regular rate and rhythm Chest: Able to complete full sentences, no retractions, no tachypnea Abdomen: abdomen soft, non-tender, non-distended, no organomegaly Musculoskeletal: Pulses present and equal in all extremities, no peripheral edema Motor: no focal deficits noted Neurological: CN II-XII grossly intact, no focal motor or sensory deficits noted Skin: Intact with no visualized rashes Psych: Normal affect and mood Limitations: no limitations Course Vital Signs 03/20/24 03/20/24 03/20/24 03:36 03:58 04:41 Temperature 98.5 F Pulse Rate 141 H 129 H 130 H Respiratory 18 22 20 Rate Blood Pressure 112/64 116/63 107/56 O2 Sat by Pulse 97 100 95 Oximetry EKG Findings - EKG Comments: EKG Findings:: My EKG interpretation: Ventricular rate 142, sinus tachycardia,. 124, QRS 86, QTc 373. No TX prolongation, no QTC prolongation, no ST or T-wave changes noted. Medical Decision Making - Medical Decision Making Was pt. sent in by a medical professional or institution (, PA, BLADDER BLOWER, urgent care, hospital, or assisted...) When possible be specific @ -No Did you speak to anyone other than the patient for history (EMS, parent, family, police, friend...)? What history was obtained from this source @ -No Did you review nursing and triage notes (agree or disagree)? Why? @ -I reviewed and agree with nursing and triage notes Were old charts reviewed (outside hosp., previous admission, EMS record, old EKG, old radiological studies, urgent care reports/EKG's, assisted records)? Report findings @ -No old charts were reviewed Differential Diagnosis (chest pain, altered mental status, abdominal pain women, abdominal pain men, vaginal bleeding, musculoskeletal, weakness, fever, dyspnea, syncope, headache, dizziness, GI bleed, back pain, seizure, CVA, palpatations, mental health)? @ -Differential Weakness: Hypoglycemia, shock, sepsis, hyponatremia, anemia, infection, [place], ETOH, adverse medicine reaction, overdose, stroke, this is not meant to be an all-inclusive list. EKG interpreted by me (3pts min.). @ -See above X-rays interpreted by me (1pt min.). @ -None done CT interpreted by me (1pt min.). @ -None done U/S interpreted by me (1pt. min.). @ -None done What testing was considered but not performed or refused? (CT, X-rays, U/S, labs)? Why? @ -None What meds were considered but not given or refused? Why? @ -None Was smoking cessation discussed for >3mins.? @ -No Were there social determinants of health that impacted care today? How? (Homelessness, low income, unemployed, alcoholism, drug addiction, transportation, low edu. Level, literacy, decrease access to med. care, group home, rehab)? @ -Alcoholism Was there de-escalation of care discussed even if they declined (Discuss DNR or withdrawal of care, Hospice)? DNR status @ -No What co-morbidities impacted this encounter? (DM, HTN, Smoking, COPD, CAD, Cancer, CVA, ARF, Chemo, Hep., AIDS, mental health diagnosis, sleep apnea, morbid obesity)? @ -Liver cirrhosis Was patient admitted / discharged? Hospital course, mention meds given and route, prescriptions, significant lab abnormalities, going to OR and other pertinent info. @ -33-year-old male presents to the emergency department for alcohol withdrawal. Vital signs upon arrival shows tachycardia. Blood pressure within acceptable limits. Patient condition improved with initial boluses of Ativan. Laboratory evaluation obtained. Leukocytosis 21.8 likely stress in nature. INR 1.5 likely signifying liver failure. Metabolic panel shows bilirubinemia. Serum alcohol is 290 Did you discuss the management of the patient with other professionals (professionals i.e. , PA, BLADDER BLOWER, lab, RT, psych nurse, social sciences instructor, skip hoist operator, teacher, giving officer, supervisor case loading)? Give summary @ -Discussed with hospitalist for admission Was critical care preformed (if so, how long)? @ -No Undiagnosed new problem with uncertain prognosis? @ -No Drug Therapy requiring intensive monitoring for toxicity (Heparin, Nitro, Insulin, Cardizem)? @ -No Were any procedures done? @ -No Diagnosis/symptom? Acute, or Chronic, or Acute on Chronic? Uncomplicated (without systemic symptoms) or Complicated (systemic symptoms)? @ -Alcohol withdrawal Side effects of treatment? @ -No Exacerbation, Progression, or Severe Exacerbation? @ -No Poses a threat to life or bodily function? How? (Chest pain, [place], [place], pneumonia, PE, COPD, DKA, ARF, appy, cholecystitis, CVA, Diverticulitis, Homicidal, Suicidal, threat to staff... and all critical care pts) @ -yes - Lab Data Result diagrams: 03/20/24 03:49 03/20/24 03:49 Lab Results 03/20/24 03/20/24 03/20/24 Range/Units 03:49 03:49 03:49 WBC 21.8 H (3.8-10.6) k/uL RBC 3.45 L (4.30-5.90) m/uL Hgb 12.4 L (13.0-17.5) gm/dL Hct 37.9 L (39.0-53.0) % MCV 109.8 H (80.0-100.0) fL MCH 35.9 H (25.0-35.0) pg MCHC 32.7 (31.0-37.0) g/dL RDW 13.1 (11.5-15.5) % Plt Count 211 (150-450) k/uL MPV 8.5 Manual Slide Review Performed Macrocytosis Marked A PT 15.0 H (10.0-12.5) sec INR 1.5 H (<1.2) APTT 32.2 H (22.0-30.0) sec Sodium 141 (137-145) mmol/L Potassium 4.3 (3.5-5.1) mmol/L Chloride 107 (98-107) mmol/L Carbon Dioxide 18 L (22-30) mmol/L Anion Gap 16 mmol/L BUN 7 L (9-20) mg/dL Creatinine 1.19 (0.66-1.25) mg/dL Est GFR (CKD-EPI)AfAm >90 (>60 ml/min/1.73 sqM) Est GFR (CKD-EPI)NonAf 81 (>60 ml/min/1.73 sqM) Glucose 139 H (74-99) mg/dL Plasma Lactic Acid Raul (0.7-2.0) mmol/L Calcium 8.7 (8.4-10.2) mg/dL Magnesium 1.6 (1.6-2.3) mg/dL Total Bilirubin 3.8 H (0.2-1.3) mg/dL AST 116 H (17-59) U/L ALT 42 (4-49) U/L Alkaline Phosphatase 442 H (38-126) U/L Ammonia (<30) umol/L Total Protein 7.6 (6.3-8.2) g/dL Albumin 3.7 (3.5-5.0) g/dL Serum Alcohol 290 H* mg/dL 03/20/24 Range/Units 03:49 WBC (3.8-10.6) k/uL RBC (4.30-5.90) m/uL Hgb (13.0-17.5) gm/dL Hct (39.0-53.0) % MCV (80.0-100.0) fL MCH (25.0-35.0) pg MCHC (31.0-37.0) g/dL RDW (11.5-15.5) % Plt Count (150-450) k/uL MPV Manual Slide Review Macrocytosis PT (10.0-12.5) sec INR (<1.2) APTT (22.0-30.0) sec Sodium (137-145) mmol/L Potassium (3.5-5.1) mmol/L Chloride (98-107) mmol/L Carbon Dioxide (22-30) mmol/L Anion Gap mmol/L BUN (9-20) mg/dL Creatinine (0.66-1.25) mg/dL Est GFR (CKD-EPI)AfAm (>60 ml/min/1.73 sqM) Est GFR (CKD-EPI)NonAf (>60 ml/min/1.73 sqM) Glucose (74-99) mg/dL Plasma Lactic Acid Raul 1.8 (0.7-2.0) mmol/L Calcium (8.4-10.2) mg/dL Magnesium (1.6-2.3) mg/dL Total Bilirubin (0.2-1.3) mg/dL AST (17-59) U/L ALT (4-49) U/L Alkaline Phosphatase (38-126) U/L Ammonia 46 H (<30) umol/L Total Protein (6.3-8.2) g/dL Albumin (3.5-5.0) g/dL Serum Alcohol mg/dL Disposition Clinical Impression: Alcohol withdrawal Disposition: ADMITTED IP TO THIS [facility] Condition: Fair Referrals: Gabe Flynn DO [Primary Care Provider] - 1-2 days Decision Time: 05:43
[2024-03-20 04:33] LABS: Lactic Acid, Venous 1.8 mmol/L (0.7-2.0)
[2024-03-20 04:34] LABS: ALT 42 U/L (4-49); AST 116 U/L (17-59); African American GFR (CKD) >90 (>60 ml/min/1.73 sqM); Albumin 3.7 g/dL (3.5-5.0); Alkaline Phosphatase 442 U/L (38-126); Anion Gap 16 mmol/L; Blood Urea Nitrogen 7 mg/dL (9-20); Calcium 8.7 mg/dL (8.4-10.2); Carbon Dioxide 18 mmol/L (22-30); Chloride 107 mmol/L (98-107); Glucose 139 mg/dL (74-99); INR 1.5 (<1.2); Magnesium 1.6 mg/dL (1.6-2.3); Non-African American GFR(CKD) 81 (>60 ml/min/1.73 sqM); Partial Thromboplastin Time 32.2 sec (22.0-30.0); Potassium 4.3 mmol/L (3.5-5.1); Sodium 141 mmol/L (137-145); Total Bilirubin 3.8 mg/dL (0.2-1.3); Total Protein 7.6 g/dL (6.3-8.2)
[2024-03-20 04:35] LABS: HCT 37.9 % (39.0-53.0); HGB 12.4 gm/dL (13.0-17.5); MCH 35.9 pg (25.0-35.0); MCHC 32.7 g/dL (31.0-37.0); MCV 109.8 fL (80.0-100.0); Macrocytosis Marked; Mean Platelet Volume 8.5; Platelet Count 211 k/uL (150-450); RBC 3.45 m/uL (4.30-5.90); RDW 13.1 % (11.5-15.5); WBC 21.8 k/uL (3.8-10.6)
[2024-03-20 04:50] LABS: Alcohol 290 mg/dL
[2024-03-20] MEDS ORDERED: NALOXONE 0.4 MG/ML 1 ML VIAL IV PRN (05:40)
[2024-03-20] MEDS: SODIUM CHLORIDE 0.9% 1,000 ML IV SCH (05:49)
[2024-03-20] MEDS ORDERED: SENNOSIDES-DOCUSATE SODIUM 1 EACH TAB PO PRN (13:14)
[2024-03-20] MEDS ORDERED: DEXTROSE 50% SYRINGE 50 ML IVP PRN ×2 (13:28)
[2024-03-20] MEDS ORDERED: PANTOPRAZOLE 40 MG TABLET PO SCH (13:30)
[2024-03-20] MEDS: NICOTINE 21MG/24HR PATCH TRANSDERM SCH (14:02)
[2024-03-20] MEDS: DAPAGLIFLOZIN PROPANEDIOL 10 MG TABLET PO SCH (14:13)
[2024-03-20] MEDS: lisinopriL 10 MG TAB PO SCH (14:13)
[2024-03-20] MEDS: THIAMINE 100 MG TAB PO SCH (14:13)
[2024-03-20] MEDS: MAGNESIUM OXIDE 400 MG TAB PO SCH (14:13)
[2024-03-20] MEDS: SPIRONOLACTONE 25 MG TAB PO SCH (14:13)
[2024-03-20] MEDS: FOLIC ACID 1 MG TAB PO SCH (14:13)
[2024-03-20] MEDS: PANTOPRAZOLE 40 MG/10 ML VIAL IVP SCH (14:15)
--- NOTE | 2024-03-20 14:53 | XR ---
EXAMINATION TYPE: XR chest 1V portable DATE OF EXAM: 03/20/2024 COMPARISON: 09/27/2023 INDICATION: CHF TECHNIQUE: Single frontal view of the chest is obtained. FINDINGS: The heart size is normal. The pulmonary vasculature is normal. The lungs are clear. IMPRESSION: 1. No acute pulmonary process. [facility], Workstation: [facility], 03/20/2024 2:51 PM
[2024-03-20 16:30] LABS: Appearance,Urine Clear (Clear); Bilirubin,Urine Negative (Negative); Blood,Urine Negative (Negative); Color,Urine Yellow; Glucose,Urine (UA) 4+ (Negative); Ketones,Urine Negative (Negative); Leukocyte Esterase,Urine Negative (Negative); Mucus,Urine Rare /hpf; Nitrite,Urine Negative (Negative); PH, Urine 6.5 (5.0-8.0); Protein,Urine 1+ (Negative); RBC,Urine <1 /hpf (0-5); Specific Gravity,Urine 1.012 (1.001-1.035); Squamous Epithelial Cell,Urine <1 /hpf (0-4); Urobilinogen,Urine <2.0 mg/dL (<2.0); WBC,Urine 3 /hpf (0-5)
[2024-03-20 16:48] LABS: Glucose,Whole Blood 92 mg/dL (70-110)
[2024-03-20] MEDS: INSULIN ASPART (NovoLOG) 100 UNIT/ML VIAL SQ SCH (16:50)
[2024-03-20] MEDS: HYDROCORTISONE 2.5% RECTAL CREAM 30 GM TUBE RECTAL SCH (17:19)
[2024-03-20] MEDS: INSULIN DETEMIR (LEVEMIR) 100 UNIT/ML SYR SQ SCH (17:38)
[2024-03-20 18:57] LABS: Amphetamine Screen,Urine Not Detected (NotDetected); Barbiturate Screen,Urine Not Detected (NotDetected); Benzodiazepines Screen,Urine Not Detected (NotDetected); Cocaine Screen,Urine Not Detected (NotDetected); Methadone Screen, Urine Not Detected (NotDetected); Opiate Screen,Urine Not Detected (NotDetected); Oxycodone Screen, Urine Not Detected (NotDetected); Phencyclidine Screen,Urine Not Detected (NotDetected); Tricyclic Antidepressant,Urine Not Detected (NotDetected); Urn Cannabinoid Scrn Detected (NotDetected)
[2024-03-20] MEDS: MORPHINE SULFATE 2 MG/ML SYRINGE IVP PRN (19:07)
[2024-03-20 20:19] LABS: Glucose,Whole Blood 131 mg/dL (70-110)
[2024-03-20] MEDS: LACTULOSE 20 GM/30 ML CUP PO SCH (20:25)
[2024-03-20] MEDS: SODIUM BICARBONATE TAB 650 MG TAB PO SCH (20:25)
--- NOTE | 2024-03-20 20:38 | HP ---
HISTORY AND PHYSICAL CHIEF COMPLAINT: Alcohol withdrawal. HISTORY OF PRESENT ILLNESS: This is a 33-year-old gentleman with a past medical history of alcohol problems and also cirrhosis of liver, was admitted with alcohol withdrawal symptoms and intoxication. Alcohol was found to be 290. There is no history of any fever, rigors, or chills at this time. PAST MEDICAL HISTORY: Reviewed include hypertension, liver disease, ETOH abuse. Rest of the history and rest of the chart is also reviewed. HOME MEDICATIONS: Reviewed include lispro, dose and rest of medications reviewed. ALLERGIES: None. FAMILY HISTORY: History of myocardial infarction in the family. SOCIAL HISTORY: History of substance abuse including cocaine and marijuana in the past. REVIEW OF SYSTEMS: Fourteen-point review is negative except as mentioned earlier. PHYSICAL EXAMINATION: VITAL SIGNS: Pulse is 109, blood pressure 91/54, respirations 20. HEENT: Conjunctivae normal. NECK: No JVD. CARDIOVASCULAR: S1, S2 muffled. RESPIRATIONS: Breath sounds diminished at the bases. A few scattered rhonchi. ABDOMEN: Soft, obese. Ascites present. LEGS: No edema. NERVOUS SYSTEM: Nonfocal. SKIN: No ulcer, rash, bleeding. Otherwise no hepatic flap. LABORATORY DATA: WBC 21.8, hemoglobin 12.4. ASSESSMENT: 1. Alcohol intoxication. 2. Acute delirium tremens. 3. Chronic liver disease. 4. Diabetes mellitus, type 2. 5. Alcohol intoxication. 6. Multiple complex medical issues. RECOMMENDATIONS AND DISCUSSION: This is a 33-year-old gentleman, who presented with multiple medical issues, we will monitor the patient closely. I would recommend monitor the blood sugars closely, scale, symptomatic treatment, lactulose and I would also recommend Gastroenterology consultation also. Check ammonia. Portable chest x-ray. See orders for further details. Guarded prognosis. Further recommendations to follow. MMODL / IJN: [id number] /
[2024-03-20] MEDS: HYDROmorphone 0.5 MG/0.5 ML SYRINGE IVP PRN (21:55)
[2024-03-20] MEDS: HYDROCORTISONE SUPPOSITORY 25 MG SUPP RECTAL SCH (23:10)
[2024-03-21 06:20] LABS: Glucose,Whole Blood 89 mg/dL (70-110)
[2024-03-21 07:23] LABS: Basophils % (A) 0 %; Eosinophils # (A) 0.3 k/uL (0-0.7); Eosinophils % (A) 2 %; HCT 32.6 % (39.0-53.0); HGB 10.1 gm/dL (13.0-17.5); Hypochromasia Slight; Lymphocytes # (A) 1.6 k/uL (1.0-4.8); Lymphocytes % (A) 11 %; MCH 34.8 pg (25.0-35.0); MCHC 30.9 g/dL (31.0-37.0); MCV 112.4 fL (80.0-100.0); Mean Platelet Volume 8.8; Monocytes # (A) 0.6 k/uL (0-1.0); Monocytes % (A) 5 %; Neutrophils % (A) 80 %; Platelet Count 153 k/uL (150-450); RDW 12.6 % (11.5-15.5); WBC 13.9 k/uL (3.8-10.6)
[2024-03-21 07:28] LABS: Macrocytosis Marked
[2024-03-21 07:59] LABS: ALT 36 U/L (4-49); AST 104 U/L (17-59); African American GFR (CKD) >90 (>60 ml/min/1.73 sqM); Albumin 2.9 g/dL (3.5-5.0); Alkaline Phosphatase 403 U/L (38-126); Anion Gap 8 mmol/L; Blood Urea Nitrogen 8 mg/dL (9-20); Calcium 8.1 mg/dL (8.4-10.2); Carbon Dioxide 21 mmol/L (22-30); Chloride 105 mmol/L (98-107); Glucose 83 mg/dL (74-99); Non-African American GFR(CKD) >90 (>60 ml/min/1.73 sqM); Potassium 4.4 mmol/L (3.5-5.1); Sodium 134 mmol/L (137-145); Total Bilirubin 4.8 mg/dL (0.2-1.3); Total Protein 6.5 g/dL (6.3-8.2)
[2024-03-21 11:07] LABS: Glucose,Whole Blood 93 mg/dL (70-110)
--- NOTE | 2024-03-21 12:06 | P.CONS ---
History of Present Illness - Reason for Consult Consult date: 03/21/24 Cirrhosis Requesting physician: Bora Carreno - Chief Complaint Alcohol withdrawal - History of Present Illness This a pleasant 33-year-old male with a history of alcohol dependence who admits to drinking at least a pint a day, chronic bleeding hemorrhoids with rectal pain, alcohol liver cirrhosis and hypertension who presented to the emergency department with alcohol withdrawal symptoms and rectal pain. Patient states he was diagnosed with cirrhosis of the liver and September 2023 when he came in and had a cholecystectomy. He has been drinking for many years. States he tries to stop. He has not followed with a groundhand but states he has an upcoming appointment on 03/30/2024. He states that he has chronic rectal pain and bleeding hemorrhoids for which she is supposed to be seeing Dr. Pinzon for as well as possible inguinal hernia surgery. Patient was noted to have elevated LFTs on admission with elevated ammonia. Gastroenterology was consulted for cirrhosis. He currently denies any abdominal pain, nausea or vomiting. Only complaint at this time is pain when he has a bowel movement in the rectum. He has been afebrile. He is on CIWA protocol. He has no imaging done during this hospitalization but his recent hospitalization in February he did undergo CT of the abdomen reporting stable hepatocellular disease with hepatomegaly, cirrhosis as well as splenomegaly. Perisplenic and perigastric varices identified. Abdominal pelvic ascites. However abdominal ultrasound reported very mild amount of ascites. Review of Systems REVIEW OF SYSTEMS: CARDIOPULMONARY: No chest pain or shortness of breath. Gastrointestinal: No abdominal pain. No nausea or vomiting. No hematemesis, coffee-ground emesis. Patient does report rectal bleeding with hemorrhoids and rectal pain. GENITOURINARY: No dysuria or hematuria. MUSCULOSKELETAL: Reports normal range of motion. SKIN: No rashes. No jaundice. ENDOCRINE: No chills, fevers. No excessive weight gain or loss. No polydipsia or polyuria. PSYCHIATRIC: Unremarkable. NEUROLOGY: No change in mental status. Denies dizziness, headache. ENT: Vision unremarkable. CONSTITUTIONAL: No recent weight loss. No fever, chills, night sweats. Past Medical History Past Medical History: Hypertension, Liver Disease Additional Past Medical History / Comment(s): Nephrolithiasis, ETOH abuse with past withdrawal tremors, past alcoholic hepatitis/acute severe kidney injury/hyperphosphatemia/acute metabolic encephalopathy from renal failure. History of Any Multi-Drug Resistant Organisms: None Reported Past Surgical History: Cholecystectomy, Tonsillectomy Past Anesthesia/Blood Transfusion Reactions: No Reported Reaction Past Psychological History: No Psychological Hx Reported Additional Psychological History / Comment(s): Pt resides with his mother. He is independent. Smoking Status: Current every day smoker Past Alcohol Use History: Abuse, Daily Additional Past Alcohol Use History / Comment(s): Pt started smoking as a teen and is a ppd smoker. He states he was drinking a pint of vodka a day prior to getting his gallbladder out but since then he drinks more occationally. Past Drug Use History: Marijuana Additional Drug Use History / Comment(s): Pt states he smokes 1 joint every day - Past Family History Father Family Medical History: Myocardial Infarction ([place]) Mother Family Medical History: Hypertension Additional Family Medical History / Comment(s): heart stent Medications and Allergies Home Medications Medication Instructions Recorded Confirmed Type Pantoprazole [Protonix] 40 mg PO DAILY 09/22/23 03/20/24 History Thiamine [Vitamin B-1] 100 mg PO DAILY #30 tab 09/30/23 03/20/24 Rx Folic Acid 1 mg PO DAILY 02/20/24 03/20/24 History Spironolactone [Aldactone] 25 mg PO DAILY #30 tablet 02/21/24 03/20/24 Rx lisinopriL [Zestril] 10 mg PO DAILY #30 tab 02/21/24 03/20/24 Rx Dapagliflozin Propanediol [Farxiga] 10 mg PO DAILY 03/08/24 03/20/24 History Glucagon Emergency Kit 1 mg IM ONCE PRN 03/08/24 03/20/24 History Hydrocortisone Pr Cream 1 applic RECTAL QID 03/08/24 03/20/24 History [Proctosol-Hc 2.5%] Insulin Glargine,Hum.rec.anlog 30 units SQ W/SUPPER 03/08/24 03/20/24 History [Lantus Solostar Pen] Insulin Lispro [Insulin Lispro See Protocol SQ ACHS 03/08/24 03/20/24 History Kwikpen U-100] Hydrocortisone Suppository 25 mg RECTAL BID 7 Days #14 03/13/24 03/20/24 Rx [Anusol-Hc] suppositor Magnesium Oxide [Mag-Ox] 400 mg PO DAILY #30 tab 03/13/24 03/20/24 Rx Nicotine 14Mg/24Hr Patch [Habitrol] 1 patch TRANSDERM DAILY #3 patch 03/13/24 03/20/24 Rx Sennosides-Docusate Sodium 1 tab PO DAILY PRN #30 tablet 03/13/24 03/20/24 Rx [Senokot-S] Sodium Bicarbonate Tab 650 mg PO BID #60 tab 03/13/24 03/20/24 Rx Allergies Allergy/AdvReac Type Severity Reaction Status Date / Time No Known Allergies Allergy Verified 03/20/24 03:36 Physical Exam Vitals: Vital Signs Temp Pulse Pulse Resp BP BP Pulse Ox 03/21/24 10:42 98.7 F 115 H 16 117/67 95 03/21/24 08:48 113 H 03/21/24 07:23 98.3 F 113 H 16 135/77 93 L 03/21/24 04:00 98.7 F 113 H 18 127/66 95 03/21/24 02:00 113 H 18 03/20/24 21:00 98.4 F 141 H 18 152/88 96 03/20/24 20:59 100 F H 137 H 16 121/73 97 03/20/24 20:00 141 H 18 03/20/24 19:58 151 H 16 130/92 100 03/20/24 18:42 98 F 154 H 18 140/84 96 03/20/24 14:04 124 H 18 130/68 95 Intake and Output 03/20/24 03/21/24 03/21/24 22:59 06:59 14:59 Intake Total 540 120 Balance 540 120 Intake: Oral 540 120 Other: Voiding Method Toilet Toilet Toilet # Voids 0 Weight 91.626 kg 92 kg General appearance: The patient is alert, oriented, appears in no acute distress. HET: Head is normocephalic and atraumatic. Conjunctiva pink. Sclera anicteric. Neck: Supple without lymphadenopathy. Trachea midline. Heart: Regular. Lungs: Equal expansion, normal respiratory effort. Abdomen: Soft, nontender, small umbilical hernia, easily reducible, nondistend ed. Skin: No rashes. No jaundice. Extremities: Normal skin color and turgor. No pedal edema. Neurological: No focal deficits. Alert and oriented x3. Results CBC & Chem 7: 03/21/24 07:09 03/21/24 07:09 Labs: Abnormal Lab Results - Last 24 Hours (Table) 03/20/24 03/20/24 03/21/24 Range/Units 05:45 20:18 07:09 WBC (3.8-10.6) k/uL RBC (4.30-5.90) m/uL Hgb (13.0-17.5) gm/dL Hct (39.0-53.0) % MCV (80.0-100.0) fL MCHC (31.0-37.0) g/dL Neutrophils # (1.3-7.7) k/uL Macrocytosis Sodium (137-145) mmol/L Carbon Dioxide (22-30) mmol/L BUN (9-20) mg/dL POC Glucose (mg/dL) 131 H (70-110) mg/dL Hemoglobin A1c 9.4 H (<=6.0) % Calcium (8.4-10.2) mg/dL Total Bilirubin (0.2-1.3) mg/dL AST (17-59) U/L Alkaline Phosphatase (38-126) U/L Ammonia (<30) umol/L Albumin (3.5-5.0) g/dL Urine Protein 1+ H (Negative) Urine Glucose (UA) 4+ H (Negative) Urine Mucus Rare H (None) /hpf U Marijuana (THC) Screen Detected H (NotDetected) 03/21/24 03/21/24 03/21/24 Range/Units 07:09 07:09 07:09 WBC 13.9 H (3.8-10.6) k/uL RBC 2.90 L (4.30-5.90) m/uL Hgb 10.1 L (13.0-17.5) gm/dL Hct 32.6 L (39.0-53.0) % MCV 112.4 H (80.0-100.0) fL MCHC 30.9 L (31.0-37.0) g/dL Neutrophils # 11.0 H (1.3-7.7) k/uL Macrocytosis Marked A Sodium 134 L (137-145) mmol/L Carbon Dioxide 21 L (22-30) mmol/L BUN 8 L (9-20) mg/dL POC Glucose (mg/dL) (70-110) mg/dL Hemoglobin A1c (<=6.0) % Calcium 8.1 L (8.4-10.2) mg/dL Total Bilirubin 4.8 H (0.2-1.3) mg/dL AST 104 H (17-59) U/L Alkaline Phosphatase 403 H (38-126) U/L Ammonia 33 H (<30) umol/L Albumin 2.9 L (3.5-5.0) g/dL Urine Protein (Negative) Urine Glucose (UA) (Negative) Urine Mucus (None) /hpf U Marijuana (THC) Screen (NotDetected) Assessment and Plan (1) Alcoholic cirrhosis of liver Narrative/Plan: 33-year-old male with longstanding history of alcohol abuse drinks at least a pint a day. Diagnosed with cirrhosis of the liver in September of this year when he was admitted and undergoing cholecystectomy. Patient continues to drink alcohol daily. Admitted currently for alcohol withdrawal. Labs are consistent with alcohol liver disease. Elevated ammonia started on lactulose. Discussed with patient importance of alcohol abstinence. He has a follow-up appointment with gastroenterology on 03/30/2024. No further workup at this time. Current Visit: Yes Status: Acute Code(s): K70.30 - ALCOHOLIC CIRRHOSIS OF LIVER WITHOUT ASCITES SNOMED Code(s): 135628902 (2) Hyperammonemia Current Visit: Yes Status: Acute Code(s): E72.20 - DISORDER OF UREA CYCLE METABOLISM, UNSPECIFIED SNOMED Code(s): 9332204 (3) Alcohol withdrawal Current Visit: Yes Status: Acute Code(s): F10.239 - ALCOHOL DEPENDENCE WITH WITHDRAWAL, UNSPECIFIED SNOMED Code(s): 524502789 (4) Alcohol abuse Current Visit: No Status: Acute Code(s): F10.10 - ALCOHOL ABUSE, UNCOMPLICATED SNOMED Code(s): 58106115 (5) Hemorrhoid Current Visit: No Status: Acute Code(s): K64.9 - UNSPECIFIED HEMORRHOIDS SNOMED Code(s): 77229201 (6) Transaminitis Current Visit: No Status: Acute Code(s): R74.0 - NONSPEC ELEV OF LEVELS OF TRANSAMNS & LACTIC * DO NOT USE * SNOMED Code(s): 082067222 Plan: 1. Continue symptomatic and supportive care 2. Recommend alcohol abstinence 3. Repeat CBC, CMP, ammonia tomorrow 4. Continue to monitor for withdrawal symptoms, currently on CIVT protocol 5. Continue with rectal cream and hydrocortisone suppositories for hemorrhoids. Patient to follow-up with Dr. Pinzon in outpatient setting 6. No further workup indicated by gastroenterology Thank you for this consultation, we will continue to follow. Dr. Brenda Ross I agree with the dictator's note, documented as a scribe by Omayra Duffy.
[2024-03-21] MEDS: PROPRANOLOL 10 MG TAB PO SCH (12:29)
[2024-03-21 13:44] LABS: INR 1.7 (<1.2); Prothrombin Time 17.2 sec (10.0-12.5)
--- NOTE | 2024-03-21 15:08 | P.GSCN ---
History of Present Illness Consult date: 03/21/24 History of present illness: CHIEF COMPLAINT: EtOH withdrawal HISTORY OF PRESENT ILLNESS: This is a 33-year-old male who presented with alcohol withdrawal symptoms and rectal pain. Patient has a known history of bleeding hemorrhoids. He was just hospitalized in February and at that time was evaluated for the bleeding hemorrhoids. He has been using hemorrhoid creams that had been helping. He reports that he still strains for bowel movements. The hemorrhoids are present with the bowel movement and at that time has bleeding. When the bowel movement is finished hemorrhoids retract. Patient also reports with an umbilical hernia that is been present for years. Initially he complained of what he thought was a left groin hernia that appeared yesterday. The pain is just below the scrotum in the left perineal area. The area is indurated firm red and tender. Patient denies any drainage from that area. Denies any injury. White count on admission was elevated at 21. Hemoglobin did drop from 12-10 on admission. He is also being seen by cardiology in regards to possible atrial flutter. And he is followed by GI service for his liver cirrhosis. Patient reports that he he only drank once after his discharge from the hospital. But he states that he drank alcohol to help with pain control. PAST MEDICAL HISTORY: Hypertension, liver cirrhosis, alcohol abuse with withdrawal tremors, alcoholic hepatitis, renal failure, diabetes mellitus PAST SURGICAL HISTORY: Cholecystectomy, tonsillectomy MEDICATIONS: See list. ALLERGIES: See list. SOCIAL HISTORY: No illicit drug use. Daily alcohol use REVIEW OF SYSTEMS: CONSTITUTIONAL: Denies fever or chills. HEENT: Denies blurred vision, vision changes, or eye pain. Denies hemoptysis ENDOCRINE: Denies heat or cold intolerance. CARDIOVASCULAR: Denies chest pain or pressure. RESPIRATORY: No shortness of breath. GASTROINTESTINAL: Denies abdominal pain. Denies nausea or vomiting. NEURO: Denies history of seizures. PSYCH: No depression or suicidal ideation HEMATOLOGIC: Denies bleeding disorders. LYMPHATIC: The patient denies any lumps and bumps around the neck. GENITOURINARY: Denies any blood in urine or increased urinary frequency. MUSCULOSKELETAL: Denies myalgias. Denies joint swelling. Denies decreased range of motion beyond patients baseline. SKIN: Denies pruitis. Denies rash. PHYSICAL EXAM: VITAL SIGNS: Reviewed GENERAL: Well-developed in no acute distress. HEENT: No sclera icterus. Extraocular movements grossly intact. Moist buccal mucosa. Head is atraumatic, normocephalic. Hears conversational speech. No nasal drainage. NECK: Supple without lymphadenopathy. CHEST: Non-labored respirations and equal bilateral excursions. CARDIOVASCULAR: Palpable 2+ radial pulses. ABDOMEN: Soft. Nondistended. Nontender. No guarding. Umbilical hernia that is reducible. MUSCULOSKELETAL: No clubbing or cyanosis. NEUROLOGIC: No focal or lateralizing signs. Cranial nerves II through XII grossly intact. PSYCH: Appropriate affect. Alert and oriented to person, place and time. SKIN: Left peritoneum below the scrotum area about quarter size of redness induration warmth tender with palpation and firm. No drainage noted. LABORATORY DATA: WBC 21 down to 13.9 Hgb 12.4 down to 10.1 platelets 153 INR 1.7 Sodium 134 potassium 4.4 creatinine 0.66 Lactic acid 1.8 Hemoglobin A1c 9.4 Total bilirubin 4.8 AST 104 ALT 36 alk phos 403 Drug screen positive for marijuana. Serum alcohol level 290 IMAGING: ASSESSMENT: 1. Bleeding hemorrhoids 2. Cellulitis and induration of the left perineum 3. Reducible umbilical hernia 4. Alcohol withdrawal 5. Alcohol liver cirrhosis PLAN: -Continue Anusol suppositories and Anusol cream for hemorrhoids -Colace added for stool softener to help avoid straining during bowel movements -Continue to monitor hemoglobin -Add Zosyn for cellulitis of the perineum -Further recommendations forthcoming per surgeon Physician Headrig Sawyer note has been reviewed by physician. Signing provider agrees with the documented findings, assessment, and plan of care. Past Medical History Past Medical History: Hypertension, Liver Disease Additional Past Medical History / Comment(s): Nephrolithiasis, ETOH abuse with past withdrawal tremors, past alcoholic hepatitis/acute severe kidney injury/hyperphosphatemia/acute metabolic encephalopathy from renal failure. History of Any Multi-Drug Resistant Organisms: None Reported Past Surgical History: Cholecystectomy, Tonsillectomy Past Anesthesia/Blood Transfusion Reactions: No Reported Reaction Past Psychological History: No Psychological Hx Reported Additional Psychological History / Comment(s): Pt resides with his mother. He is independent. Smoking Status: Current every day smoker Past Alcohol Use History: Abuse, Daily Additional Past Alcohol Use History / Comment(s): Pt started smoking as a teen and is a ppd smoker. He states he was drinking a pint of vodka a day prior to getting his gallbladder out but since then he drinks more occationally. Past Drug Use History: Marijuana Additional Drug Use History / Comment(s): Pt states he smokes 1 joint every day - Past Family History Father Family Medical History: Myocardial Infarction ([place]) Mother Family Medical History: Hypertension Additional Family Medical History / Comment(s): heart stent Medications and Allergies Home Medications Medication Instructions Recorded Confirmed Type Pantoprazole [Protonix] 40 mg PO DAILY 09/22/23 03/20/24 History Thiamine [Vitamin B-1] 100 mg PO DAILY #30 tab 09/30/23 03/20/24 Rx Folic Acid 1 mg PO DAILY 02/20/24 03/20/24 History Spironolactone [Aldactone] 25 mg PO DAILY #30 tablet 02/21/24 03/20/24 Rx lisinopriL [Zestril] 10 mg PO DAILY #30 tab 02/21/24 03/20/24 Rx Dapagliflozin Propanediol [Farxiga] 10 mg PO DAILY 03/08/24 03/20/24 History Glucagon Emergency Kit 1 mg IM ONCE PRN 03/08/24 03/20/24 History Hydrocortisone Pr Cream 1 applic RECTAL QID 03/08/24 03/20/24 History [Proctosol-Hc 2.5%] Insulin Glargine,Hum.rec.anlog 30 units SQ W/SUPPER 03/08/24 03/20/24 History [Lantus Solostar Pen] Insulin Lispro [Insulin Lispro See Protocol SQ ACHS 03/08/24 03/20/24 History Kwikpen U-100] Hydrocortisone Suppository 25 mg RECTAL BID 7 Days #14 03/13/24 03/20/24 Rx [Anusol-Hc] suppositor Magnesium Oxide [Mag-Ox] 400 mg PO DAILY #30 tab 03/13/24 03/20/24 Rx Nicotine 14Mg/24Hr Patch [Habitrol] 1 patch TRANSDERM DAILY #3 patch 03/13/24 03/20/24 Rx Sennosides-Docusate Sodium 1 tab PO DAILY PRN #30 tablet 03/13/24 03/20/24 Rx [Senokot-S] Sodium Bicarbonate Tab 650 mg PO BID #60 tab 03/13/24 03/20/24 Rx Allergies Allergy/AdvReac Type Severity Reaction Status Date / Time No Known Allergies Allergy Verified 03/20/24 03:36 Surgical - Exam Vital Signs Temp Pulse Resp BP Pulse Ox 98.5 F 141 H 18 112/64 97 03/20/24 03:36 03/20/24 03:36 03/20/24 03:36 03/20/24 03:36 03/20/24 03:36 Results - Labs 03/21/24 07:09 03/21/24 07:09 Abnormal Lab Results - Last 24 Hours (Table) 03/20/24 03/20/24 03/21/24 Range/Units 05:45 20:18 07:09 WBC (3.8-10.6) k/uL RBC (4.30-5.90) m/uL Hgb (13.0-17.5) gm/dL Hct (39.0-53.0) % MCV (80.0-100.0) fL MCHC (31.0-37.0) g/dL Neutrophils # (1.3-7.7) k/uL Macrocytosis PT (10.0-12.5) sec INR (<1.2) Sodium (137-145) mmol/L Carbon Dioxide (22-30) mmol/L BUN (9-20) mg/dL POC Glucose (mg/dL) 131 H (70-110) mg/dL Hemoglobin A1c 9.4 H (<=6.0) % Calcium (8.4-10.2) mg/dL Total Bilirubin (0.2-1.3) mg/dL AST (17-59) U/L Alkaline Phosphatase (38-126) U/L Ammonia (<30) umol/L Albumin (3.5-5.0) g/dL Urine Protein 1+ H (Negative) Urine Glucose (UA) 4+ H (Negative) Urine Mucus Rare H (None) /hpf U Marijuana (THC) Screen Detected H (NotDetected) 03/21/24 03/21/24 03/21/24 Range/Units 07:09 07:09 07:09 WBC 13.9 H (3.8-10.6) k/uL RBC 2.90 L (4.30-5.90) m/uL Hgb 10.1 L (13.0-17.5) gm/dL Hct 32.6 L (39.0-53.0) % MCV 112.4 H (80.0-100.0) fL MCHC 30.9 L (31.0-37.0) g/dL Neutrophils # 11.0 H (1.3-7.7) k/uL Macrocytosis Marked A PT (10.0-12.5) sec INR (<1.2) Sodium 134 L (137-145) mmol/L Carbon Dioxide 21 L (22-30) mmol/L BUN 8 L (9-20) mg/dL POC Glucose (mg/dL) (70-110) mg/dL Hemoglobin A1c (<=6.0) % Calcium 8.1 L (8.4-10.2) mg/dL Total Bilirubin 4.8 H (0.2-1.3) mg/dL AST 104 H (17-59) U/L Alkaline Phosphatase 403 H (38-126) U/L Ammonia 33 H (<30) umol/L Albumin 2.9 L (3.5-5.0) g/dL Urine Protein (Negative) Urine Glucose (UA) (Negative) Urine Mucus (None) /hpf U Marijuana (THC) Screen (NotDetected) 03/21/24 Range/Units 13:11 WBC (3.8-10.6) k/uL RBC (4.30-5.90) m/uL Hgb (13.0-17.5) gm/dL Hct (39.0-53.0) % MCV (80.0-100.0) fL MCHC (31.0-37.0) g/dL Neutrophils # (1.3-7.7) k/uL Macrocytosis PT 17.2 H (10.0-12.5) sec INR 1.7 H (<1.2) Sodium (137-145) mmol/L Carbon Dioxide (22-30) mmol/L BUN (9-20) mg/dL POC Glucose (mg/dL) (70-110) mg/dL Hemoglobin A1c (<=6.0) % Calcium (8.4-10.2) mg/dL Total Bilirubin (0.2-1.3) mg/dL AST (17-59) U/L Alkaline Phosphatase (38-126) U/L Ammonia (<30) umol/L Albumin (3.5-5.0) g/dL Urine Protein (Negative) Urine Glucose (UA) (Negative) Urine Mucus (None) /hpf U Marijuana (THC) Screen (NotDetected) Diabetes panel 03/21/24 03/21/24 Range/Units 07:09 07:09 Sodium 134 L (137-145) mmol/L Potassium 4.4 (3.5-5.1) mmol/L Chloride 105 (98-107) mmol/L Carbon Dioxide 21 L (22-30) mmol/L BUN 8 L (9-20) mg/dL Creatinine 0.66 (0.66-1.25) mg/dL Glucose 83 (74-99) mg/dL Hemoglobin A1c 9.4 H (<=6.0) % Calcium 8.1 L (8.4-10.2) mg/dL AST 104 H (17-59) U/L ALT 36 (4-49) U/L Alkaline Phosphatase 403 H (38-126) U/L Total Protein 6.5 (6.3-8.2) g/dL Albumin 2.9 L (3.5-5.0) g/dL Calcium panel 03/21/24 Range/Units 07:09 Calcium 8.1 L (8.4-10.2) mg/dL Albumin 2.9 L (3.5-5.0) g/dL Pituitary panel 03/21/24 Range/Units 07:09 Sodium 134 L (137-145) mmol/L Potassium 4.4 (3.5-5.1) mmol/L Chloride 105 (98-107) mmol/L Carbon Dioxide 21 L (22-30) mmol/L BUN 8 L (9-20) mg/dL Creatinine 0.66 (0.66-1.25) mg/dL Glucose 83 (74-99) mg/dL Calcium 8.1 L (8.4-10.2) mg/dL Adrenal panel 03/21/24 Range/Units 07:09 Sodium 134 L (137-145) mmol/L Potassium 4.4 (3.5-5.1) mmol/L Chloride 105 (98-107) mmol/L Carbon Dioxide 21 L (22-30) mmol/L BUN 8 L (9-20) mg/dL Creatinine 0.66 (0.66-1.25) mg/dL Glucose 83 (74-99) mg/dL Calcium 8.1 L (8.4-10.2) mg/dL Total Bilirubin 4.8 H (0.2-1.3) mg/dL AST 104 H (17-59) U/L ALT 36 (4-49) U/L Alkaline Phosphatase 403 H (38-126) U/L Total Protein 6.5 (6.3-8.2) g/dL Albumin 2.9 L (3.5-5.0) g/dL
[2024-03-21] MEDS: PIPERACILLIN-TAZOBACTAM 3.375 GM in SODIUM CHLORIDE 0.9% 100 ML IVPB SCH (15:10)
--- NOTE | 2024-03-21 15:58 | P.CRDCN ---
History of Present Illness Consult date: 03/21/24 History of present illness: HISTORY OF PRESENTING ILLNESS Patient is a 33-year-old male with past medical history of alcohol dependence with alcoholic liver cirrhosis, chronic bleeding hemorrhoids, hypertension presented to the hospital because of alcohol withdrawal symptoms and rectal pain. He was diagnosed with cirrhosis of liver in September 2023. This time cardiology was consulted because of concerns of arrhythmias on admission ECG. On my review of ECG it appears to be sinus tachycardia. On review of his telemetry have not seen any evidence of atrial fibrillation or atrial flutter. REVIEW OF SYSTEMS 14 point review of system is negative except what is mentioned above in HPI. PHYSICAL EXAMINATION Vital signs reviewed. Head: Normocephalic. Eyes: Sclerae nonicteric. Neck: Brisk carotid upstroke, no jugular venous distention. Lungs: Diminished breath sounds, poor inspiratory effort, mild crackles audible. Heart: Regular rate and rhythm, S1-S2, no S3, no murmur or rub. Abdomen: Abdomen is distended, he denies any tenderness. No guarding. Extremities: 1-2+ pitting edema bilateral lower extremity Neuro: Alert, oritented, no focal deficits. Detailed neuro exam was not performed. ASSESSMENT Alcohol intoxication, currently undergoing alcohol withdrawal Sinus tachycardia, physiological Hepatic encephalopathy with hyperammonemia Portal hypertension with ascites Hemorrhoids Alcoholic liver cirrhosis Noncompliance PLAN Recommend starting propranolol 10 mg twice daily for portal hypertension. Uptitrate as tolerated Agree with Aldactone 25 mg daily. Agree with lisinopril 10 mg daily. Monitor electrolytes and hemodynamics MELD score is 18, estimated mortality 6% in next 3 months At this time patient is cleared from cardiology. Cardiology will sign off. Please reconsult us in case of any question. Recommend GI and hepatology evaluation Florian Ariza MD, FACC, RPVI Thank you for allowing [facility] to participate in this patient's care. Feel free to reach out in case of any followup questions. Past Medical History Past Medical History: Hypertension, Liver Disease Additional Past Medical History / Comment(s): Nephrolithiasis, ETOH abuse with past withdrawal tremors, past alcoholic hepatitis/acute severe kidney injury/hyperphosphatemia/acute metabolic encephalopathy from renal failure. History of Any Multi-Drug Resistant Organisms: None Reported Past Surgical History: Cholecystectomy, Tonsillectomy Past Anesthesia/Blood Transfusion Reactions: No Reported Reaction Past Psychological History: No Psychological Hx Reported Additional Psychological History / Comment(s): Pt resides with his mother. He is independent. Smoking Status: Current every day smoker Past Alcohol Use History: Abuse, Daily Additional Past Alcohol Use History / Comment(s): Pt started smoking as a teen and is a ppd smoker. He states he was drinking a pint of vodka a day prior to getting his gallbladder out but since then he drinks more occationally. Past Drug Use History: Marijuana Additional Drug Use History / Comment(s): Pt states he smokes 1 joint every day - Past Family History Father Family Medical History: Myocardial Infarction ([place]) Mother Family Medical History: Hypertension Additional Family Medical History / Comment(s): heart stent Medications and Allergies Home Medications Medication Instructions Recorded Confirmed Type Pantoprazole [Protonix] 40 mg PO DAILY 09/22/23 03/20/24 History Thiamine [Vitamin B-1] 100 mg PO DAILY #30 tab 09/30/23 03/20/24 Rx Folic Acid 1 mg PO DAILY 02/20/24 03/20/24 History Spironolactone [Aldactone] 25 mg PO DAILY #30 tablet 02/21/24 03/20/24 Rx lisinopriL [Zestril] 10 mg PO DAILY #30 tab 02/21/24 03/20/24 Rx Dapagliflozin Propanediol [Farxiga] 10 mg PO DAILY 03/08/24 03/20/24 History Glucagon Emergency Kit 1 mg IM ONCE PRN 03/08/24 03/20/24 History Hydrocortisone Pr Cream 1 applic RECTAL QID 03/08/24 03/20/24 History [Proctosol-Hc 2.5%] Insulin Glargine,Hum.rec.anlog 30 units SQ W/SUPPER 03/08/24 03/20/24 History [Lantus Solostar Pen] Insulin Lispro [Insulin Lispro See Protocol SQ ACHS 03/08/24 03/20/24 History Kwikpen U-100] Hydrocortisone Suppository 25 mg RECTAL BID 7 Days #14 03/13/24 03/20/24 Rx [Anusol-Hc] suppositor Magnesium Oxide [Mag-Ox] 400 mg PO DAILY #30 tab 03/13/24 03/20/24 Rx Nicotine 14Mg/24Hr Patch [Habitrol] 1 patch TRANSDERM DAILY #3 patch 03/13/24 03/20/24 Rx Sennosides-Docusate Sodium 1 tab PO DAILY PRN #30 tablet 03/13/24 03/20/24 Rx [Senokot-S] Sodium Bicarbonate Tab 650 mg PO BID #60 tab 03/13/24 03/20/24 Rx Allergies Allergy/AdvReac Type Severity Reaction Status Date / Time No Known Allergies Allergy Verified 03/20/24 03:36 Physical Exam Vitals: Vital Signs Temp Pulse Pulse Resp BP BP Pulse Ox 03/21/24 10:42 98.7 F 115 H 16 117/67 95 03/21/24 08:48 113 H 03/21/24 07:23 98.3 F 113 H 16 135/77 93 L 03/21/24 04:00 98.7 F 113 H 18 127/66 95 03/21/24 02:00 113 H 18 03/20/24 21:00 98.4 F 141 H 18 152/88 96 03/20/24 20:59 100 F H 137 H 16 121/73 97 03/20/24 20:00 141 H 18 03/20/24 19:58 151 H 16 130/92 100 03/20/24 18:42 98 F 154 H 18 140/84 96 Intake and Output 03/21/24 03/21/24 03/21/24 06:59 14:59 22:59 Intake Total 540 240 Balance 540 240 Intake: Oral 540 240 Other: Voiding Method Toilet Toilet # Voids 0 Weight 92 kg Results 03/21/24 07:09 03/21/24 07:09 Cardiac Enzymes 03/21/24 Range/Units 07:09 AST 104 H (17-59) U/L Coagulation 03/21/24 Range/Units 13:11 PT 17.2 H (10.0-12.5) sec CBC 03/21/24 Range/Units 07:09 WBC 13.9 H (3.8-10.6) k/uL RBC 2.90 L (4.30-5.90) m/uL Hgb 10.1 L (13.0-17.5) gm/dL Hct 32.6 L (39.0-53.0) % Plt Count 153 (150-450) k/uL Comprehensive Metabolic Panel 03/21/24 Range/Units 07:09 Sodium 134 L (137-145) mmol/L Potassium 4.4 (3.5-5.1) mmol/L Chloride 105 (98-107) mmol/L Carbon Dioxide 21 L (22-30) mmol/L BUN 8 L (9-20) mg/dL Creatinine 0.66 (0.66-1.25) mg/dL Glucose 83 (74-99) mg/dL Calcium 8.1 L (8.4-10.2) mg/dL AST 104 H (17-59) U/L ALT 36 (4-49) U/L Alkaline Phosphatase 403 H (38-126) U/L Total Protein 6.5 (6.3-8.2) g/dL Albumin 2.9 L (3.5-5.0) g/dL Current Medications Generic Name Dose Route Start Last Admin Trade Name Freq PRN Reason Stop Dose Admin Dapagliflozin 10 mg 03/20/24 13:45 03/21/24 08:00 Dapagliflozin Propanediol 10 Mg Tablet PO 10 mg DAILY BREN Administration Dextrose/Water 25 ml 03/20/24 13:28 Dextrose 50% Syringe 50 Ml IVP PER PROTOCOL PRN Hypoglycemia Protocol Dextrose/Water 50 ml 03/20/24 13:28 Dextrose 50% Syringe 50 Ml IVP PER PROTOCOL PRN Hypoglycemia Protocol Docusate Sodium 100 mg 03/21/24 21:00 Docusate 100 Mg Cap PO BID BREN Folic Acid 1 mg 03/20/24 13:45 03/21/24 08:00 Folic Acid 1 Mg Tab PO 1 mg DAILY BREN Administration Hydrocortisone 1 applic 03/20/24 18:00 03/21/24 14:13 Hydrocortisone 2.5% Rectal Cream 30 Gm Tube RECTAL Not Given QID BREN Hydrocortisone Acetate 25 mg 03/20/24 21:00 03/21/24 08:01 Hydrocortisone Suppository 25 Mg Supp RECTAL 25 mg BID BREN Administration Hydromorphone HCl 0.5 mg 03/20/24 21:46 03/21/24 15:08 Hydromorphone 0.5 Mg/0.5 Ml Syringe IVP 0.5 mg Q4HR PRN Administration Pain Sodium Chloride 1,000 mls @ 20 mls/hr 03/20/24 05:45 03/20/24 19:07 Saline 0.9% IV 100 mls/hr .Q24H BREN Administration Piperacillin Sod/Tazobactam 100 mls @ 25 mls/hr 03/21/24 16:00 03/21/24 15:10 Sod 3.375 gm/ Sodium Chloride IVPB 25 mls/hr Q8HR BREN Administration Protocol Insulin Aspart 0 unit 03/20/24 17:30 03/21/24 11:35 Insulin Aspart (Novolog) 100 Unit/Ml Vial SQ Not Given [facility] Protocol Insulin Detemir 30 unit 03/20/24 17:30 03/20/24 17:40 Insulin Detemir (Levemir) 100 Unit/Ml Syr SQ Not Given W/SUPPER BREN Lactulose 20 gm 03/20/24 21:00 03/21/24 08:00 Lactulose 20 Gm/30 Ml Cup PO 20 gm BID BREN Administration Lisinopril 10 mg 03/20/24 13:30 03/21/24 08:00 Lisinopril 10 Mg Tab PO 10 mg DAILY BREN Administration Lorazepam 1 mg 03/20/24 03:41 03/21/24 02:21 Lorazepam 2 Mg/Ml Inj IV 1 mg Q1HR PRN Administration CIWA 10 to 15 Lorazepam 1 mg 03/20/24 03:41 03/21/24 06:39 Lorazepam 2 Mg/Ml Inj IV 1 mg Q2HR PRN Administration CIWA 8 or 9 Magnesium Oxide 400 mg 03/20/24 13:30 03/21/24 08:00 Magnesium Oxide 400 Mg Tab PO 400 mg DAILY BREN Administration Naloxone HCl 0.2 mg 03/20/24 05:40 Naloxone 0.4 Mg/Ml 1 Ml Vial IV Q2M PRN Opioid Reversal Nicotine 1 patch 03/20/24 13:30 03/21/24 08:00 Nicotine 21mg/24hr Patch TRANSDERM 1 patch DAILY BREN Administration Pantoprazole Sodium 40 mg 03/20/24 13:30 03/21/24 08:00 Pantoprazole 40 Mg/10 Ml Vial IVP 40 mg BID BREN Administration Propranolol HCl 10 mg 03/21/24 11:45 03/21/24 12:29 Propranolol 10 Mg Tab PO 10 mg BID BREN Administration Senna/Docusate Sodium 1 each 03/20/24 13:14 Sennosides-Docusate Sodium 1 Each Tab PO DAILY PRN Constipation Sodium Bicarbonate 650 mg 03/20/24 21:00 03/21/24 08:00 Sodium Bicarbonate Tab 650 Mg Tab PO 650 mg BID BREN Administration Spironolactone 25 mg 03/20/24 13:30 03/21/24 08:00 Spironolactone 25 Mg Tab PO 25 mg DAILY BREN Administration Thiamine HCl 100 mg 03/20/24 13:30 03/21/24 08:00 Thiamine 100 Mg Tab PO 100 mg DAILY BREN Administration Intake and Output 03/21/24 03/21/24 03/21/24 06:59 14:59 22:59 Intake Total 540 240 Balance 540 240 Intake: Oral 540 240 Other: Voiding Method Toilet Toilet # Voids 0 Weight 92 kg 03/21/24 07:09 03/21/24 07:09
[2024-03-21 16:26] LABS: Glucose,Whole Blood 106 mg/dL (70-110)
[2024-03-21] MEDS: DOCUSATE 100 MG CAP PO SCH (19:47)
[2024-03-21 19:57] LABS: Glucose,Whole Blood 137 mg/dL (70-110)
--- NOTE | 2024-03-22 01:28 | PN ---
PROGRESS NOTE DATE OF SERVICE: 03/21/2024 SUBJECTIVE: This is a 33-year-old gentleman admitted with alcohol withdrawal syndrome, also has chronic liver disease. The patient complains of hemorrhoids and hernia also. No chest pain. No palpitation. OBJECTIVE: VITAL SIGNS: Pulse is 115, blood pressure 117/69, respirations 16. CHEST: A few scattered rhonchi. ABDOMEN: Soft, ascites. LABORATORY DATA: Reviewed. Total bilirubin is 4.8. ASSESSMENT: 1. Acute alcohol intoxication. 2. Acute delirium tremens. 3. Chronic liver disease. 4. Diabetes mellitus, type 2. 5. Alcohol intoxication. 6. Multiple complex medical issues. RECOMMENDATIONS AND DISCUSSION: I recommend to continue current management and continue symptomatic treatment. Continue with CIWA protocol. Repeat labs. I would also recommend surgical evaluation regarding hemorrhoids and hernia. Closely follow with Gastroenterology. Guarded prognosis. Further recommendations to follow. I will repeat the PT/INR also tomorrow. JESSICA / RAYMONDN: [id number] /
[2024-03-22 03:38] LABS: ALT 34 U/L (4-49); AST 117 U/L (17-59); African American GFR (CKD) >90 (>60 ml/min/1.73 sqM); Albumin 3.6 g/dL (3.5-5.0); Alkaline Phosphatase 435 U/L (38-126); Anion Gap 10 mmol/L; Blood Urea Nitrogen 11 mg/dL (9-20); Calcium 8.8 mg/dL (8.4-10.2); Carbon Dioxide 18 mmol/L (22-30); Chloride 105 mmol/L (98-107); Glucose 116 mg/dL (74-99); Non-African American GFR(CKD) >90 (>60 ml/min/1.73 sqM); Potassium 4.4 mmol/L (3.5-5.1); Sodium 133 mmol/L (137-145); Total Bilirubin 6.6 mg/dL (0.2-1.3); Total Protein 7.3 g/dL (6.3-8.2)
[2024-03-22 03:43] LABS: Basophils % (A) 0 %; Eosinophils # (A) 0.1 k/uL (0-0.7); Eosinophils % (A) 1 %; HCT 33.8 % (39.0-53.0); HGB 10.6 gm/dL (13.0-17.5); Hypochromasia Marked; Lymphocytes # (A) 0.6 k/uL (1.0-4.8); Lymphocytes % (A) 7 %; MCHC 31.5 g/dL (31.0-37.0); Macrocytosis Marked; Mean Platelet Volume 8.1; Monocytes # (A) 0.3 k/uL (0-1.0); Monocytes % (A) 4 %; Neutrophils # (A) 7.6 k/uL (1.3-7.7); Neutrophils % (A) 87 %; Platelet Count 158 k/uL (150-450); RBC 2.96 m/uL (4.30-5.90); RDW 12.7 % (11.5-15.5); WBC 8.8 k/uL (3.8-10.6)
[2024-03-22 03:46] LABS: MCV 114.3 fL (80.0-100.0)
[2024-03-22 06:27] LABS: Glucose,Whole Blood 142 mg/dL (70-110)
--- NOTE | 2024-03-22 07:07 | CA ---
Transthoracic Echo Report Name: Donovan Addison Age: 33 Gender: M : 1990 Exam Date: 03/21/2024 13:53 Exam Location: [facility] Ht (in): 73 Wt (lb): 202 Ordering Physician: Florian Ariza MD ([email or web address]) Attending/Referring Phys: Remote Recruiter Georgie Nam RDCS Procedure CPT: Indications: cardiomyopathy Cardiac Hx: Technical Quality: Fair Contrast 1: Total Dose (mL): Contrast 2: Total Dose (mL): MEASUREMENTS (Male / Female) Normal Values 2D ECHO LV Diastolic Diameter PLAX 3.7 cm 4.2 - 5.9 / 3.9 - 5.3 cm LV Systolic Diameter PLAX 1.9 cm IVS Diastolic Thickness 1.3 cm 0.6 - 1.0 / 0.6 - 0.9 cm LVPW Diastolic Thickness 1.4 cm 0.6 - 1.0 / 0.6 - 0.9 cm LV Relative Wall Thickness 0.7 RV Internal Dim ED PLAX 3.1 cm LA Volume 51.8 cm??? 18 - 58 / 22 - 52 cm??? LA Volume Index 23.7 cm???/m??? 16 - 28 cm???/m??? M-MODE Aortic Root Diameter MM 2.6 cm LA Systolic Diameter MM 3.9 cm LA Ao Ratio MM 1.5 AV Cusp Separation MM 2.2 cm DOPPLER AV Peak Velocity 171.2 cm/s AV Peak Gradient 11.7 mmHg AV Mean Velocity 111.1 cm/s AV Mean Gradient 5.6 mmHg AV Velocity Time Integral 30.0 cm LVOT Peak Velocity 138.3 cm/s LVOT Peak Gradient 7.7 mmHg LVOT Velocity Time Integral 26.7 cm MV Area PHT 4.7 cm??? Mitral E Point Velocity 93.9 cm/s Mitral A Point Velocity 75.2 cm/s Mitral E to A Ratio 1.2 MV Deceleration Time 162.6 ms MV E' Velocity 9.9 cm/s Mitral E to MV E' Ratio 9.5 TR Peak Velocity 233.1 cm/s TR Peak Gradient 21.7 mmHg Right Ventricular Systolic Press 26.7 mmHg FINDINGS Left Ventricle Mildly increased left ventricular wall thickness. Left ventricular cavity size normal. Normal left ventricular systolic function with no obvious regional wall motion abnormalities. Left ventricular ejection fraction is estimated at 55-60 %.normal left ventricular diastolic filling pattern. Right Ventricle Normal right ventricular size and function. Right ventricular systolic pressure within normal limits. Right Atrium Normal right atrial size. Left Atrium Normal left atrial size. Mitral Valve Structurally normal mitral valve. No mitral stenosis.Mild mitral regurgitation. Aortic Valve Trileaflet aortic valve. No aortic valve stenosis or regurgitation. Tricuspid Valve Structurally normal tricuspid valve. Mild tricuspid regurgitation. Pulmonic Valve Structurally normal pulmonic valve. Trace pulmonic regurgitation. Pericardium No pericardial effusion. Aorta Normal size aortic root and proximal ascending aorta. CONCLUSIONS 1. Normal left ventricular size and systolic function 2. Mild mitral and tricuspid regurgitation with normal pulmonic pressure Previewed by: Dr. Javad Cooper MD (Electronically Signed) Final Date: 22 March 2024 07:06
[2024-03-22] MEDS: ONDANSETRON 4 MG/2 ML VIAL IVP PRN (08:42)
[2024-03-22 09:43] LABS: ALT 28 U/L (4-49); AST 109 U/L (17-59); African American GFR (CKD) >90 (>60 ml/min/1.73 sqM); Albumin/Globulin Ratio 0.9; Alkaline Phosphatase 356 U/L (38-126); Anion Gap 8 mmol/L; Blood Urea Nitrogen 13 mg/dL (9-20); Calcium 8.3 mg/dL (8.4-10.2); Carbon Dioxide 17 mmol/L (22-30); Chloride 104 mmol/L (98-107); Globulin 3.4 g/dL; Glucose 155 mg/dL (74-99); Non-African American GFR(CKD) >90 (>60 ml/min/1.73 sqM); Potassium 4.3 mmol/L (3.5-5.1); Sodium 129 mmol/L (137-145); Total Bilirubin 5.4 mg/dL (0.2-1.3); Total Protein 6.4 g/dL (6.3-8.2)
[2024-03-22 10:03] LABS: HCT 30.8 % (39.0-53.0); HGB 9.5 gm/dL (13.0-17.5); Hypochromasia Moderate; MCH 34.8 pg (25.0-35.0); MCHC 30.8 g/dL (31.0-37.0); Macrocytosis Marked; Mean Platelet Volume 8.9; Platelet Count 145 k/uL (150-450); RBC 2.72 m/uL (4.30-5.90); RDW 12.9 % (11.5-15.5); WBC 14.6 k/uL (3.8-10.6)
--- NOTE | 2024-03-22 11:49 | P.PN ---
Subjective Progress Note Date: 03/22/24 CHIEF COMPLAINT: Alcohol withdrawal HISTORY OF PRESENT ILLNESS: Patient complains of increased pain and swelling in the left groin and perineum area. The area is more fluctuant today. There is no drainage present. He reports that the hemorrhoids are bleeding last. Patient having temps of 99.7. He has been tachycardic. WBC did go up from 8.8- 14.6 hemoglobin 10.6 down to 9.5 Na 129 PHYSICAL EXAM: VITAL SIGNS: Reviewed GENERAL: Well-developed in no acute distress. HEENT: No sclera icterus. Extraocular movements grossly intact. Moist buccal mucosa. Head is atraumatic, normocephalic. Hears conversational speech. No nasal drainage. NECK: Supple without lymphadenopathy. CHEST: Non-labored respirations and equal bilateral excursions. CARDIOVASCULAR: Palpable 2+ radial pulses. ABDOMEN: Soft. Nondistended. Nontender. Umbilical hernia reducible MUSCULOSKELETAL: No clubbing or cyanosis. NEUROLOGIC: No focal or lateralizing signs. Cranial nerves II through XII grossly intact. PSYCH: Appropriate affect. Alert and oriented to person, place and time. SKIN: Lower left groin and perineal area with significant tenderness, erythema, warmth and a small area of fluctuance noted. No drainage. ASSESSMENT: 1. Left groin and perineal pain with cellulitis changes and concerns for po ssible fluid collection 2. Bleeding hemorrhoids 3. Reducible umbilical hernia 4. Alcohol withdraw 5. Alcoholic liver cirrhosis. 6. Hyponatremia PLAN: -CT scan abdomen pelvis ordered for further evaluation of the left groin and perineal area, to rule out abscess -Continue antibiotics -Continue to monitor CBC -Continue Anusol suppository and Anusol cream for hemorrhoids -Continue stool softener Physician Refrigerating Engineer Head note has been reviewed by physician. Signing provider agrees with the documented findings, assessment, and plan of care. Objective - Vital Signs Vital signs: Vital Signs Temp 99.7 F H 03/22/24 07:21 Pulse 127 H 03/22/24 07:21 Resp 18 03/22/24 07:21 BP 105/62 03/22/24 07:21 Pulse Ox 94 L 03/22/24 07:21 FiO2 Intake & Output 03/21/24 03/22/24 03/22/24 18:59 06:59 18:59 Intake Total 240 Balance 240 Intake: Oral 240 Other: Voiding Method Toilet Toilet # Voids 2 1 - Labs CBC & Chem 7: 03/22/24 09:05 03/22/24 09:05 Labs: Abnormal Lab Results - Last 24 Hours (Table) 03/21/24 03/21/24 03/22/24 Range/Units 13:11 19:54 02:53 WBC (3.8-10.6) k/uL RBC 2.96 L (4.30-5.90) m/uL Hgb 10.6 L (13.0-17.5) gm/dL Hct 33.8 L (39.0-53.0) % MCV 114.3 H (80.0-100.0) fL MCH 36.0 H (25.0-35.0) pg MCHC (31.0-37.0) g/dL Plt Count (150-450) k/uL Lymphocytes # 0.6 L (1.0-4.8) k/uL Macrocytosis Marked A PT 17.2 H (10.0-12.5) sec INR 1.7 H (<1.2) Sodium (137-145) mmol/L Carbon Dioxide (22-30) mmol/L Glucose (74-99) mg/dL POC Glucose (mg/dL) 137 H (70-110) mg/dL Calcium (8.4-10.2) mg/dL Total Bilirubin (0.2-1.3) mg/dL AST (17-59) U/L Alkaline Phosphatase (38-126) U/L Albumin (3.5-5.0) g/dL 03/22/24 03/22/24 03/22/24 Range/Units 02:53 06:26 09:05 WBC 14.6 H (3.8-10.6) k/uL RBC 2.72 L (4.30-5.90) m/uL Hgb 9.5 L (13.0-17.5) gm/dL Hct 30.8 L (39.0-53.0) % MCV 113.0 H (80.0-100.0) fL MCH (25.0-35.0) pg MCHC 30.8 L (31.0-37.0) g/dL Plt Count 145 L (150-450) k/uL Lymphocytes # (1.0-4.8) k/uL Macrocytosis Marked A PT (10.0-12.5) sec INR (<1.2) Sodium 133 L (137-145) mmol/L Carbon Dioxide 18 L (22-30) mmol/L Glucose 116 H (74-99) mg/dL POC Glucose (mg/dL) 142 H (70-110) mg/dL Calcium (8.4-10.2) mg/dL Total Bilirubin 6.6 H (0.2-1.3) mg/dL AST 117 H (17-59) U/L Alkaline Phosphatase 435 H (38-126) U/L Albumin (3.5-5.0) g/dL 03/22/24 Range/Units 09:05 WBC (3.8-10.6) k/uL RBC (4.30-5.90) m/uL Hgb (13.0-17.5) gm/dL Hct (39.0-53.0) % MCV (80.0-100.0) fL MCH (25.0-35.0) pg MCHC (31.0-37.0) g/dL Plt Count (150-450) k/uL Lymphocytes # (1.0-4.8) k/uL Macrocytosis PT (10.0-12.5) sec INR (<1.2) Sodium 129 L (137-145) mmol/L Carbon Dioxide 17 L (22-30) mmol/L Glucose 155 H (74-99) mg/dL POC Glucose (mg/dL) (70-110) mg/dL Calcium 8.3 L (8.4-10.2) mg/dL Total Bilirubin 5.4 H (0.2-1.3) mg/dL AST 109 H (17-59) U/L Alkaline Phosphatase 356 H (38-126) U/L Albumin 3.0 L (3.5-5.0) g/dL Microbiology - Last 24 Hours (Table) 03/20/24 14:09 Blood Culture - Preliminary Blood
[2024-03-22 12:03] VITALS: BMI 26.7
[2024-03-22] MEDS: IOPAMIDOL CONTRAST (ORAL USE) VIAL PO PRN (12:43)
--- NOTE | 2024-03-22 14:55 | CT ---
EXAMINATION TYPE: CT abdomen pelvis wo con CT DLP: 834.5 mGycm, Automated exposure control for dose reduction was used. DATE OF EXAM: 03/22/2024 2:33 PM COMPARISON: CT abdomen pelvis 03/08/2024, 11/11/2023, 10/14/2023 CLINICAL INDICATION:Male, 33 years old with history of left groin/perineum area pain and swelling; le ft groin/perineum area pain and swelling TECHNIQUE: Standard CT of the abdomen and pelvis following the administration of oral contrast. Garcia ited examination due to lack of intravenous contrast. Coronal and sagittal reformats were performed. FINDINGS: LOWER CHEST: Linear atelectasis within the right lower lobe. ABDOMEN LIVER: Enlarged measuring 26.1 cm in CC dimension. Diffusely low attenuation with nodular surface con tour. GALLBLADDER AND BILE DUCTS: Gallbladder appears surgically absent. No biliary duct dilatation. PANCREAS: Unremarkable noncontrast appearance. SPLEEN: Enlarged measuring 17.6 cm in AP dimension. ADRENAL GLANDS: Unremarkable. KIDNEYS AND URETERS: No evidence of hydronephrosis. Punctate right upper pole 2 mm nodular structure calculus. PELVIS BLADDER: Incompletely distended but grossly unremarkable. REPRODUCTIVE: Unremarkable. ABDOMEN & PELVIS STOMACH AND BOWEL: Stomach and duodenum are unremarkable. No focal wall thickening or surrounding inf lammatory changes. The appendix is within normal limits. Enteric contrast reaches the distal small jennifer wel. No evidence of bowel obstruction. PERITONEUM: No evidence of pneumoperitoneum. Moderate volume ascites. VASCULATURE: No evidence of aortic aneurysm. Perisplenic and perigastric varices redemonstrated. MUSCULOSKELETAL: Healing right right eighth and ninth rib fractures with callus formation. Fracture l carlos a are still visible. Healed left seventh and ninth rib fractures. No fracture line visible. LYMPH NODES: No pathologically enlarged lymph nodes identified. SOFT TISSUE/ABDOMINAL WALL: Small umbilical hernia containing ascites. Patulous fat filled left ingui nal ring. IMPRESSION: 1. Stable hepatocellular disease with hepatomegaly, fatty infiltration, and cirrhosis. Additional st able splenomegaly with perisplenic and perigastric varices and increased moderate volume ascites sugg esting portal hypertension. 2. Nonobstructive right renal punctate calculus. [facility], , 03/22/2024 2:53 PM
[2024-03-22 21:37] LABS: Glucose,Whole Blood 126 mg/dL (70-110)
[2024-03-22 21:37] LABS: Glucose,Whole Blood 119 mg/dL (70-110)
[2024-03-22 21:37] LABS: Glucose,Whole Blood 132 mg/dL (70-110)
--- NOTE | 2024-03-22 23:40 | PN ---
PROGRESS NOTE DATE OF SERVICE: 03/22/2024 SUBJECTIVE: This is a 33-year-old gentleman admitted with acute alcohol intoxication, also has left testicular pain and swelling also. Surgery is following the patient closely. PAST MEDICAL HISTORY: Reviewed. REVIEW OF SYSTEMS: A 14-point review of systems is negative except as mentioned earlier. CURRENT MEDICATIONS: Reviewed. PHYSICAL EXAMINATION: VITAL SIGNS: Pulse is 127, blood pressure 106/62, respirations 18. CARDIOVASCULAR: S1, S2. RESPIRATIONS: Clear. ABDOMEN: Soft. NERVOUS SYSTEM: Nonfocal. : Left testis painful. LABORATORY DATA: WBC 14.6. ASSESSMENT: 1. Acute alcohol intoxication. 2. Acute delirium tremens. 3. Acute left epididymo-orchitis possible. 4. Chronic liver disease. 5. Diabetes mellitus, type 2. 6. Alcohol intoxication. 7. Multiple complex medical issues. RECOMMENDATIONS: Recommend to continue current medications and continue symptomatic treatment. Otherwise, recommend broad-spectrum IV antibiotics. Monitor blood sugars closely. The patient is started on Zosyn. I will continue the pain medications. The patient is still undergoing DTs. Continue to monitor. Further recommendations to follow. MMODL / IJN: [id number] /
[2024-03-23 06:09] LABS: Glucose,Whole Blood 121 mg/dL (70-110)
[2024-03-23 08:39] LABS: Basophils # (A) 0.05 X 10*3/uL (0.00-0.10); Basophils % (A) 0.4 %; Eosinophils # (A) 0.23 X 10*3/uL (0.04-0.35); Eosinophils % (A) 1.7 %; HCT 30.8 % (39.6-50.0); HGB 9.8 g/dL (13.0-17.0); Lymphocytes # (A) 1.62 X 10*3/uL (0.90-5.00); Lymphocytes % (A) 12.1 %; MCH 36.3 pg (27.0-32.0); MCHC 31.8 g/dL (32.0-37.0); MCV 114.1 FL (80.0-97.0); Mean Platelet Volume 11.7 FL (9.5-12.2); Monocytes # (A) 1.19 X 10*3/uL (0.20-1.00); Monocytes % (A) 8.9 %; NRBC Per 100 WBC 0.02 X 10*3/uL (0.00-0.01); Neutrophils # (A) 10.28 X 10*3/uL (1.80-7.70); Neutrophils % (A) 76.4 %; Platelet Count 141 X 10*3/uL (140-440); RDW 13.4 % (11.5-14.5); WBC 13.44 X 10*3/uL (4.50-10.00)
[2024-03-23 08:47] LABS: ALT 28 U/L (10-49); AST 86 U/L (14-35); Albumin/Globulin Ratio 0.91 Ratio (1.60-3.17); Alkaline Phosphatase 348 U/L (41-126); Blood Urea Nitrogen 14.4 mg/dL (9.0-27.0); Calcium 8.2 mg/dL (8.7-10.3); Carbon Dioxide 19.9 mmol/L (21.6-31.8); Chloride 99 mmol/L (96-109); Globulin 3.3 g/dL (1.6-3.3); Glucose 98 mg/dL (70-110); Potassium 4.6 mmol/L (3.5-5.5); Sodium 131 mmol/L (135-145); Total Bilirubin 3.8 mg/dL (0.3-1.2); Total Protein 6.3 g/dL (6.2-8.2)
[2024-03-23] MEDS: FUROSEMIDE 40 MG TAB PO SCH (09:51)
[2024-03-23] MEDS: SPIRONOLACTONE 25 MG TAB PO SCH (09:51)
--- NOTE | 2024-03-23 11:22 | P.PN ---
Subjective Progress Note Date: 03/22/24 Principal diagnosis: Liver cirrhosis This a pleasant 33-year-old male with a history of alcohol dependence who admits to drinking at least a pint a day, chronic bleeding hemorrhoids with rectal pain, alcohol liver cirrhosis and hypertension who presented to the emergency department with alcohol withdrawal symptoms and rectal pain. Patient states he was diagnosed with cirrhosis of the liver and September 2023 when he came in and had a cholecystectomy. He has been drinking for many years. States he tries to stop. He has not followed with a retail team member but states he has an upcoming appointment on 03/30/2024. He states that he has chronic rectal pain and bleeding hemorrhoids for which she is supposed to be seeing Dr. Pinzon for as well as possible inguinal hernia surgery. Patient was noted to have elevated LFTs on admission with elevated ammonia. Gastroenterology was consulted for cirrhosis. He currently denies any abdominal pain, nausea or vomiting. Only complaint at this time is pain when he has a bowel movement in the rectum. He has been afebrile. He is on CIWA protocol. He has no imaging done during this hospitalization but his recent hospitaliz ation in February he did undergo CT of the abdomen reporting stable hepatocellular disease with hepatomegaly, cirrhosis as well as splenomegaly. Perisplenic and perigastric varices identified. Abdominal pelvic ascites. However abdominal ultrasound reported very mild amount of ascites. 03/22/2024 Patient seen and examined today as a follow-up. He was reporting increased pain in his left groin stating that it is difficult for him to walk. He continues to have leukocytosis. General surgery following. Denies any abdominal pain, nausea or vomiting. He has been afebrile. Total bilirubin 5.4 AST 109 ALT 28 alkaline phosphatase 356. Currently on CIWA protocol. Does not appear to have any withdrawal symptoms currently. Objective - Vital Signs Vital signs: Vital Signs Temp 99.2 F 03/22/24 00:55 Pulse 109 H 03/22/24 00:55 Resp 20 03/22/24 00:55 BP 113/60 03/22/24 00:55 Pulse Ox 95 03/22/24 00:55 FiO2 Intake & Output 03/21/24 03/22/24 03/22/24 18:59 06:59 18:59 Intake Total 240 Balance 240 Intake: Oral 240 Other: Voiding Method Toilet Toilet # Voids 2 1 - Exam General appearance: The patient is alert, oriented, appears in no acute distress. HET: Head is normocephalic and atraumatic. Conjunctiva pink. Sclera anicteric. Neck: Supple without lymphadenopathy. Abdomen: Soft, nontender, nondistended with bowel sounds. No guarding or rigidity. Extremities: Normal skin color and turgor. No pedal edema left groin with cellulitis, palpable firm mass in the groin region. Skin: No rashes, no jaundice Neurological: No focal deficits. Alert and oriented. - Labs CBC & Chem 7: 03/23/24 03:24 03/23/24 03:24 Labs: Abnormal Lab Results - Last 24 Hours (Table) 03/21/24 03/21/24 03/21/24 Range/Units 07:09 13:11 19:54 RBC (4.30-5.90) m/uL Hgb (13.0-17.5) gm/dL Hct (39.0-53.0) % MCV (80.0-100.0) fL MCH (25.0-35.0) pg Lymphocytes # (1.0-4.8) k/uL Macrocytosis PT 17.2 H (10.0-12.5) sec INR 1.7 H (<1.2) Sodium (137-145) mmol/L Carbon Dioxide (22-30) mmol/L Glucose (74-99) mg/dL POC Glucose (mg/dL) 137 H (70-110) mg/dL Hemoglobin A1c 9.4 H (<=6.0) % Total Bilirubin (0.2-1.3) mg/dL AST (17-59) U/L Alkaline Phosphatase (38-126) U/L 03/22/24 03/22/24 03/22/24 Range/Units 02:53 02:53 06:26 RBC 2.96 L (4.30-5.90) m/uL Hgb 10.6 L (13.0-17.5) gm/dL Hct 33.8 L (39.0-53.0) % MCV 114.3 H (80.0-100.0) fL MCH 36.0 H (25.0-35.0) pg Lymphocytes # 0.6 L (1.0-4.8) k/uL Macrocytosis Marked A PT (10.0-12.5) sec INR (<1.2) Sodium 133 L (137-145) mmol/L Carbon Dioxide 18 L (22-30) mmol/L Glucose 116 H (74-99) mg/dL POC Glucose (mg/dL) 142 H (70-110) mg/dL Hemoglobin A1c (<=6.0) % Total Bilirubin 6.6 H (0.2-1.3) mg/dL AST 117 H (17-59) U/L Alkaline Phosphatase 435 H (38-126) U/L Microbiology - Last 24 Hours (Table) 03/20/24 14:09 Blood Culture - Preliminary Blood Assessment and Plan (1) Alcoholic cirrhosis of liver Narrative/Plan: 33-year-old male with longstanding history of alcohol abuse drinks at least a pint a day. Diagnosed with cirrhosis of the liver in September of this year when he was admitted and undergoing cholecystectomy. Patient continues to drink alcohol daily. Admitted currently for alcohol withdrawal. Labs are consistent with alcohol liver disease. Elevated ammonia started on lactulose. Discussed with patient importance of alcohol abstinence. He has a follow-up appointment with gastroenterology on 03/30/2024. No further workup at this time. Current Visit: Yes Status: Acute Code(s): K70.30 - ALCOHOLIC CIRRHOSIS OF LIVER WITHOUT ASCITES SNOMED Code(s): 058947439 (2) Hyperammonemia Current Visit: Yes Status: Acute Code(s): E72.20 - DISORDER OF UREA CYCLE METABOLISM, UNSPECIFIED SNOMED Code(s): 0939993 (3) Alcohol withdrawal Current Visit: Yes Status: Acute Code(s): F10.239 - ALCOHOL DEPENDENCE WITH WITHDRAWAL, UNSPECIFIED SNOMED Code(s): 265403387 (4) Alcohol abuse Current Visit: No Status: Acute Code(s): F10.10 - ALCOHOL ABUSE, UNCOMPLICATED SNOMED Code(s): 40676741 (5) Hemorrhoid Current Visit: No Status: Acute Code(s): K64.9 - UNSPECIFIED HEMORRHOIDS SNOMED Code(s): 68174366 (6) Transaminitis Current Visit: No Status: Acute Code(s): R74.0 - NONSPEC ELEV OF LEVELS OF TRANSAMNS & LACTIC * DO NOT USE * SNOMED Code(s): 984386393 (7) Leukocytosis Narrative/Plan: Likely secondary to cellulitis and left inguinal mass. General surgery following. Patient was started on antibiotics Current Visit: Yes Status: Acute Code(s): D72.829 - ELEVATED WHITE BLOOD CELL COUNT, UNSPECIFIED SNOMED Code(s): 676465677 (8) Cellulitis Current Visit: Yes Status: Acute Code(s): L03.90 - CELLULITIS, UNSPECIFIED SNOMED Code(s): 313222129 (9) Mass of left inguinal region Current Visit: Yes Status: Acute Code(s): R19.09 - OTHER INTRA-ABDOMINAL AND PELVIC SWELLING, MASS AND LUMP SNOMED Code(s): 902642811 Plan: 1. Continue symptomatic and supportive care 2. Daily CBC, CMP 3. Continue pain medications as ordered 4. Continue antibiotics as ordered 5. Continue with recommendations from general surgery 6. Continue lactulose 7. Continue CIWA protocol and monitor for withdrawal symptoms 8. Recommend alcohol abstinence and discussed with patient importance of alcohol abstinence Thank you for this consultation, we will continue to follow. Dr. Brenda Ross I agree with the dictator's note, documented as a scribe by Omayra Duffy.
--- NOTE | 2024-03-23 11:28 | P.PN ---
Subjective Progress Note Date: 03/23/24 Principal diagnosis: Liver cirrhosis This a pleasant 33-year-old male with a history of alcohol dependence who admits to drinking at least a pint a day, chronic bleeding hemorrhoids with rectal pain, alcohol liver cirrhosis and hypertension who presented to the emergency department with alcohol withdrawal symptoms and rectal pain. Patient states he was diagnosed with cirrhosis of the liver and September 2023 when he came in and had a cholecystectomy. He has been drinking for many years. States he tries to stop. He has not followed with a marble coper but states he has an upcoming appointment on 03/30/2024. He states that he has chronic rectal pain and bleeding hemorrhoids for which she is supposed to be seeing Dr. Pinzon for as well as possible inguinal hernia surgery. Patient was noted to have elevated LFTs on admission with elevated ammonia. Gastroenterology was consulted for cirrhosis. He currently denies any abdominal pain, nausea or vomiting. Only complaint at this time is pain when he has a bowel movement in the rectum. He has been afebrile. He is on CIWA protocol. He has no imaging done during this hospitalization but his recent hospitaliz ation in February he did undergo CT of the abdomen reporting stable hepatocellular disease with hepatomegaly, cirrhosis as well as splenomegaly. Perisplenic and perigastric varices identified. Abdominal pelvic ascites. However abdominal ultrasound reported very mild amount of ascites. 03/22/2024 Patient seen and examined today as a follow-up. He was reporting increased pain in his left groin stating that it is difficult for him to walk. He continues to have leukocytosis. General surgery following. Denies any abdominal pain, nausea or vomiting. He has been afebrile. Total bilirubin 5.4 AST 109 ALT 28 alkaline phosphatase 356. Currently on CIWA protocol. Does not appear to have any withdrawal symptoms currently. 03/23/2024 Patient seen and examined today as a follow-up. He states is becoming difficult to walk due to the pain from his left groin. General surgery ordered a CT of the abdomen pelvis reporting stable hepatocellular disease with hepatomegaly, fatty infiltration and cirrhosis. Additional stable splenomegaly with perisplenic and perigastric varices and increased moderate volume ascites suggesting portal hypertension. Nonobstructive right renal punctuate calculus. Soft tissue of the abdominal wall small umbilical hernia containing ascites. Patulous fat filled left inguinal ring. Total bilirubin 3.8 AST 86 ALT 28 alkaline phosphatase 348. Leukocytosis trending down Objective - Vital Signs Vital signs: Vital Signs Temp 100.2 F H 03/23/24 06:51 Pulse 96 03/23/24 06:51 Resp 16 03/23/24 06:51 BP 91/50 03/23/24 06:51 Pulse Ox 95 03/23/24 06:51 FiO2 Intake & Output 03/22/24 03/23/24 03/23/24 18:59 06:59 18:59 Intake Total 260 1600 Balance 260 1600 Weight 92 kg Intake: Intake, IV Titration 260 Amount Piperacillin-Tazobactam 3 100 .375 gm In Sodium Chloride 0.9% 100 ml @ 25 mls/hr IVPB Q8HR [facility] Rx# :[id number] Sodium Chloride 0.9% 1, 160 000 ml @ 20 mls/hr IV . Q24H [facility]EN Rx#:[id number] Oral 1600 Other: # Voids 2 6 - Exam General appearance: The patient is alert, oriented, appears in no acute distress . HET: Head is normocephalic and atraumatic. Conjunctiva pink. Sclera anicteric. Neck: Supple without lymphadenopathy. Abdomen: Soft, nontender, nondistended with bowel sounds. No guarding or r igidity. Extremities: Normal skin color and turgor. No pedal edema. Left groin with erythema, palpable firm mass in the groin region. Skin: No rashes, no jaundice Neurological: No focal deficits. Alert and oriented. - Labs CBC & Chem 7: 03/23/24 03:24 03/23/24 03:24 Labs: Abnormal Lab Results - Last 24 Hours (Table) 03/22/24 03/22/24 03/22/24 Range/Units 09:05 09:05 11:40 WBC 14.6 H (3.8-10.6) k/uL RBC 2.72 L (4.30-5.90) m/uL Hgb 9.5 L (13.0-17.5) gm/dL Hct 30.8 L (39.0-53.0) % MCV 113.0 H (80.0-100.0) fL MCHC 30.8 L (31.0-37.0) g/dL Plt Count 145 L (150-450) k/uL Macrocytosis Marked A Sodium 129 L (137-145) mmol/L Carbon Dioxide 17 L (22-30) mmol/L Glucose 155 H (74-99) mg/dL POC Glucose (mg/dL) 126 H (70-110) mg/dL Calcium 8.3 L (8.4-10.2) mg/dL Total Bilirubin 5.4 H (0.2-1.3) mg/dL AST 109 H (17-59) U/L Alkaline Phosphatase 356 H (38-126) U/L Albumin 3.0 L (3.5-5.0) g/dL 03/22/24 03/22/24 03/23/24 Range/Units 16:50 21:09 06:04 WBC (3.8-10.6) k/uL RBC (4.30-5.90) m/uL Hgb (13.0-17.5) gm/dL Hct (39.0-53.0) % MCV (80.0-100.0) fL MCHC (31.0-37.0) g/dL Plt Count (150-450) k/uL Macrocytosis Sodium (137-145) mmol/L Carbon Dioxide (22-30) mmol/L Glucose (74-99) mg/dL POC Glucose (mg/dL) 132 H 119 H 121 H (70-110) mg/dL Calcium (8.4-10.2) mg/dL Total Bilirubin (0.2-1.3) mg/dL AST (17-59) U/L Alkaline Phosphatase (38-126) U/L Albumin (3.5-5.0) g/dL Microbiology - Last 24 Hours (Table) 03/20/24 14:09 Blood Culture - Preliminary Blood Assessment and Plan (1) Alcoholic cirrhosis of liver Narrative/Plan: 33-year-old male with longstanding history of alcohol abuse drinks at least a pint a day. Diagnosed with cirrhosis of the liver in September of this year when he was admitted and undergoing cholecystectomy. Patient continues to drink alcohol daily. Admitted currently for alcohol withdrawal. Labs are consistent with alcohol liver disease. Elevated ammonia started on lactulose. Discussed with patient importance of alcohol abstinence. He has a follow-up appointment with gastroenterology on 03/30/2024. No further workup at this time. Current Visit: Yes Status: Acute Code(s): K70.30 - ALCOHOLIC CIRRHOSIS OF LIVER WITHOUT ASCITES SNOMED Code(s): 164921229 (2) Hyperammonemia Narrative/Plan: Continue lactulose Current Visit: Yes Status: Acute Code(s): E72.20 - DISORDER OF UREA CYCLE METABOLISM, UNSPECIFIED SNOMED Code(s): 9177901 (3) Alcohol withdrawal Current Visit: Yes Status: Acute Code(s): F10.239 - ALCOHOL DEPENDENCE WITH WITHDRAWAL, UNSPECIFIED SNOMED Code(s): 603282924 (4) Alcohol abuse Current Visit: No Status: Acute Code(s): F10.10 - ALCOHOL ABUSE, UNCOMPLICATED SNOMED Code(s): 10280777 (5) Hemorrhoid Current Visit: No Status: Acute Code(s): K64.9 - UNSPECIFIED HEMORRHOIDS SNOMED Code(s): 53948683 (6) Transaminitis Current Visit: No Status: Acute Code(s): R74.0 - NONSPEC ELEV OF LEVELS OF TRANSAMNS & LACTIC * DO NOT USE * SNOMED Code(s): 005272585 (7) Ascites Narrative/Plan: Secondary to portal hypertension from underlying liver cirrhosis Current Visit: Yes Status: Acute Code(s): R18.8 - OTHER ASCITES SNOMED Code(s): 251814448 (8) Cellulitis Current Visit: Yes Status: Acute Code(s): L03.90 - CELLULITIS, UNSPECIFIED SNOMED Code(s): 838448905 (9) Mass of left inguinal region Current Visit: Yes Status: Acute Code(s): R19.09 - OTHER INTRA-ABDOMINAL AND PELVIC SWELLING, MASS AND LUMP SNOMED Code(s): 541480355 Plan: 1. Continue symptomatic and supportive care 2. Daily CBC, CMP 3. Continue pain medications as ordered 4. Continue antibiotics as ordered 5. Continue with recommendations from general surgery 6. Continue lactulose 7. Continue CIWA protocol and monitor for withdrawal symptoms 8. Increase spironolactone to 50 mg twice daily, start Lasix 40 mg daily 9. Ultrasound with paracentesis ordered with fluid studies 10. Recommend alcohol abstinence and discussed with patient importance of alcohol abstinence Thank you for allowing us to participate in the care of the patient, the GI service will sign off, gastroenterology will not be available at the hospital this weekend and through next week. If further evaluation by gastroenterology is required the patient will need transfer as per the primary team's discretion. Dr. Brenda Ross I agree with the dictator's note, documented as a scribe by Omayra Duffy.
[2024-03-23 11:44] LABS: Glucose,Whole Blood 96 mg/dL (70-110)
--- NOTE | 2024-03-23 11:49 | US ---
EXAMINATION TYPE: US scrotum with doppler. DATE OF EXAM: 03/23/2024 COMPARISON: CT abdomen and pelvis 03/22/2024 CLINICAL INDICATION: Male, 33 years old with history of left testicular, scrotal pain and swelling; L eft testicle pain, swelling, inguinal canal pain TECHNIQUE: Grayscale, color Doppler and spectral Doppler imaging of the scrotum. FINDINGS: EXAM MEASUREMENTS: TESTICLES: Right Testicle: 3.2 x 2.6 x 1.7 cm Left Testicle: 3.1 x 2.5 x 1.7 cm EPIDIDYMIS HEAD: Right Epididymis: 1.0 cm Left Epididymis: unable to see Doppler performed to assess for testicular vascularity; good bilateral color flow and waveforms are s een. There is no evidence of testicular torsion. Presence of hydroceles: mild on the left Presence of varicoceles: no 1.6 x 1.7 x 1.1cm hypoechoic lesion that may represent abscess, vascularity seen IMPRESSION: 1. No evidence of testicular mass or torsion. 2. Left inguinal canal hypoechoic 1.7 cm region with vascularity seen. May represent an abscess. Retr ospectively there is some stranding identified within the visualized portion of the left inguinal can al on prior CT. [facility], , 03/23/2024 11:46 AM
--- NOTE | 2024-03-23 11:50 | XR ---
EXAMINATION TYPE: XR chest 1V portable DATE OF EXAM: 03/23/2024 10:23 AM COMPARISON: Chest radiographs from 03/20/2024 TECHNIQUE: XR chest 1V portable Portable AP radiograph of the chest. CLINICAL INDICATION:Male, 33 years old with history of fever, sob; FINDINGS: Lungs/Pleura: There is no evidence of pleural effusion, focal consolidation, or pneumothorax. Pulmonary vascularity: Unremarkable. Heart/mediastinum: Cardiomediastinal silhouette is unremarkable. Musculoskeletal: No acute osseous pathology. IMPRESSION: No acute cardiopulmonary disease/process. [facility], , 03/23/2024 11:47 AM
--- NOTE | 2024-03-23 13:41 | P.PN ---
Subjective Progress Note Date: 03/23/24 CHIEF COMPLAINT: Alcohol withdrawal HISTORY OF PRESENT ILLNESS: Patient reports pain in the left groin is worsening. There has been increased redness. He is requiring more pain medication. Patient also continues to have some minimal bleeding from his hemorrhoids. Patient had a low-grade temp of 100.2 this morning. He had been tachycardic. WBC 14.6 down to 13.4. Hemoglobin stable 9.8. Total bili 3.8 AST 86 ALT [address] scan abdomen pelvis reports stable hepatocellular disease with he patomegaly, fatty infiltration and cirrhosis. Does not report any fluid collection in the left groin. Medicine service ordered a scrotal ultrasound that reported no evidence of testicular mass or torsion. Left inguinal canal hypoechoic 1.7 cm region with vascularity seen. May represent an abscess. Retrospectively there is some stranding identified within the visualized portion of the left inguinal canal on CT scan. Patient also scheduled for an abdominal ultrasound for possible paracentesis today. PHYSICAL EXAM: VITAL SIGNS: Reviewed GENERAL: Jaundiced. Well-developed in no acute distress. HEENT: Scleral icterus present. Extraocular movements grossly intact. Moist buccal mucosa. Head is atraumatic, normocephalic. Hears conversational speech. No nasal drainage. NECK: Supple without lymphadenopathy. CHEST: Non-labored respirations and equal bilateral excursions. CARDIOVASCULAR: Palpable 2+ radial pulses. ABDOMEN: Distended. Nontender. Reducible umbilical hernia. MUSCULOSKELETAL: No clubbing or cyanosis. NEUROLOGIC: No focal or lateralizing signs. Cranial nerves II through XII grossly intact. PSYCH: Appropriate affect. Alert and oriented to person, place and time. SKIN: Left groin and perineal erythema and tenderness with palpation. no drainage noted. ASSESSMENT: 1. Left groin and perineal pain with cellulitis changes. Ultrasound reports left inguinal canal hypoechoic 1.7 cm region with vascularity seen. May represent an abscess. 2. Bleeding hemorrhoids 3. Reducible umbilical hernia 4. Alcohol withdraw 5. Alcoholic liver cirrhosis. 6. Hyponatremia PLAN: -Consult interventional radiology for possible drainage of abscess in left inguinal canal -Continue antibiotics. 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 Signing provider agrees with the documented findings, assessment, and plan of care. Objective - Vital Signs Vital signs: Vital Signs Temp 99.7 F H 03/23/24 09:34 Pulse 120 H 03/23/24 09:58 Resp 16 03/23/24 06:51 BP 113/57 03/23/24 09:34 Pulse Ox 96 03/23/24 09:58 FiO2 Intake & Output 03/22/24 03/23/24 03/23/24 18:59 06:59 18:59 Intake Total 260 1600 Balance 260 1600 Weight 92 kg Intake: Intake, IV Titration 260 Amount Piperacillin-Tazobactam 3 100 .375 gm In Sodium Chloride 0.9% 100 ml @ 25 mls/hr IVPB Q8HR BREN Rx# :[id number] Sodium Chloride 0.9% 1, 160 000 ml @ 20 mls/hr IV . Q24H BREN Rx#:[id number] Oral 1600 Other: # Voids 2 6 - Labs CBC & Chem 7: 03/23/24 03:24 03/23/24 03:24 Labs: Abnormal Lab Results - Last 24 Hours (Table) 03/22/24 03/22/24 03/22/24 Range/Units 11:40 16:50 21:09 WBC (4.50-10.00) X 10*3/uL RBC (4.40-5.60) X 10*6/uL Hgb (13.0-17.0) g/dL Hct (39.6-50.0) % MCV (80.0-97.0) FL MCH (27.0-32.0) pg MCHC (32.0-37.0) g/dL Immature Gran # (0.00-0.04) X 10*3/uL Neutrophils # (1.80-7.70) X 10*3/uL Monocytes # (0.20-1.00) X 10*3/uL NRBC/100 WBC Diff (0.00-0.01) X 10*3/uL Sodium (135-145) mmol/L Carbon Dioxide (21.6-31.8) mmol/L Anion Gap (4.00-12.00) mmol/L POC Glucose (mg/dL) 126 H 132 H 119 H (70-110) mg/dL Calcium (8.7-10.3) mg/dL Total Bilirubin (0.3-1.2) mg/dL AST (14-35) U/L Alkaline Phosphatase (41-126) U/L Albumin (3.8-4.9) g/dL Albumin/Globulin Ratio (1.60-3.17) Ratio 03/23/24 03/23/24 03/23/24 Range/Units 03:24 03:24 06:04 WBC 13.44 H (4.50-10.00) X 10*3/uL RBC 2.70 L (4.40-5.60) X 10*6/uL Hgb 9.8 L (13.0-17.0) g/dL Hct 30.8 L (39.6-50.0) % MCV 114.1 H (80.0-97.0) FL MCH 36.3 H (27.0-32.0) pg MCHC 31.8 L (32.0-37.0) g/dL Immature Gran # 0.07 H (0.00-0.04) X 10*3/uL Neutrophils # 10.28 H (1.80-7.70) X 10*3/uL Monocytes # 1.19 H (0.20-1.00) X 10*3/uL NRBC/100 WBC Diff 0.02 H (0.00-0.01) X 10*3/uL Sodium 131 L (135-145) mmol/L Carbon Dioxide 19.9 L (21.6-31.8) mmol/L Anion Gap 12.10 H (4.00-12.00) mmol/L POC Glucose (mg/dL) 121 H (70-110) mg/dL Calcium 8.2 L (8.7-10.3) mg/dL Total Bilirubin 3.8 H (0.3-1.2) mg/dL AST 86 H (14-35) U/L Alkaline Phosphatase 348 H (41-126) U/L Albumin 3.0 L (3.8-4.9) g/dL Albumin/Globulin Ratio 0.91 L (1.60-3.17) Ratio Microbiology - Last 24 Hours (Table) 03/20/24 14:09 Blood Culture - Preliminary Blood
[2024-03-23 15:01] LABS: Appearance,Urine Clear (Clear); Bilirubin,Urine 1+ (Negative); Blood,Urine Negative (Negative); Color,Urine Yellow; Glucose,Urine (UA) 4+ (Negative); Ketones,Urine Negative (Negative); Leukocyte Esterase,Urine Negative (Negative); Nitrite,Urine Negative (Negative); PH, Urine 5.5 (5.0-8.0); Protein,Urine Trace (Negative); Specific Gravity,Urine 1.014 (1.001-1.035); Urobilinogen,Urine <2.0 mg/dL (<2.0)
[2024-03-23 16:24] LABS: Glucose,Whole Blood 172 mg/dL (70-110)
[2024-03-23] MEDS ORDERED: HYDROcodone/APAP 5-325MG 1 EACH TAB PO PRN (16:26)
[2024-03-23] MEDS ORDERED: ACETAMINOPHEN TAB 325 MG TAB PO PRN (16:27)
[2024-03-23] MEDS: IBUPROFEN 400 MG TAB PO PRN (17:18)
--- NOTE | 2024-03-23 17:59 | P.GSCN ---
History of Present Illness Consult date: 03/23/24 Reason for Consult: Possible scrotal abscess Requesting physician: Yuli Willingham History of present illness: The patient is a 33-year-old white male who began to experience left scrotal pain and swelling 1 week ago. He denies drainage. He has had no similar previous episodes. He feels like his condition is worsening to some degree. Ultrasound suggests the presence of a fluid collection, also seen on CT scan. He has a history of cirrhosis and is being treated for alcohol withdrawal syndrome; he has undergone paracentesis for ascites. Review of Systems - Constitutional Reports fever - Genitourinary Denies dysuria, Denies hematuria Past Medical History Past Medical History: Hypertension, Liver Disease Additional Past Medical History / Comment(s): Nephrolithiasis, ETOH abuse with past withdrawal tremors, past alcoholic hepatitis/acute severe kidney injury/hyperphosphatemia/acute metabolic encephalopathy from renal failure. History of Any Multi-Drug Resistant Organisms: None Reported Past Surgical History: Cholecystectomy, Tonsillectomy Past Anesthesia/Blood Transfusion Reactions: No Reported Reaction Past Psychological History: No Psychological Hx Reported Additional Psychological History / Comment(s): Pt resides with his mother. He is independent. Smoking Status: Current every day smoker Past Alcohol Use History: Abuse, Daily Additional Past Alcohol Use History / Comment(s): Pt started smoking as a teen and is a ppd smoker. He states he was drinking a pint of vodka a day prior to getting his gallbladder out but since then he drinks more occationally. Past Drug Use History: Marijuana Additional Drug Use History / Comment(s): Pt states he smokes 1 joint every day - Past Family History Father Family Medical History: Myocardial Infarction ([place]) Mother Family Medical History: Hypertension Additional Family Medical History / Comment(s): heart stent Medications and Allergies Home Medications Medication Instructions Recorded Confirmed Type Pantoprazole [Protonix] 40 mg PO DAILY 09/22/23 03/20/24 History Thiamine [Vitamin B-1] 100 mg PO DAILY #30 tab 09/30/23 03/20/24 Rx Folic Acid 1 mg PO DAILY 02/20/24 03/20/24 History Spironolactone [Aldactone] 25 mg PO DAILY #30 tablet 02/21/24 03/20/24 Rx lisinopriL [Zestril] 10 mg PO DAILY #30 tab 02/21/24 03/20/24 Rx Dapagliflozin Propanediol [Farxiga] 10 mg PO DAILY 03/08/24 03/20/24 History Glucagon Emergency Kit 1 mg IM ONCE PRN 03/08/24 03/20/24 History Hydrocortisone Pr Cream 1 applic RECTAL QID 03/08/24 03/20/24 History [Proctosol-Hc 2.5%] Insulin Glargine,Hum.rec.anlog 30 units SQ W/SUPPER 03/08/24 03/20/24 History [Lantus Solostar Pen] Insulin Lispro [Insulin Lispro See Protocol SQ ACHS 03/08/24 03/20/24 History Kwikpen U-100] Hydrocortisone Suppository 25 mg RECTAL BID 7 Days #14 03/13/24 03/20/24 Rx [Anusol-Hc] suppositor Magnesium Oxide [Mag-Ox] 400 mg PO DAILY #30 tab 03/13/24 03/20/24 Rx Nicotine 14Mg/24Hr Patch [Habitrol] 1 patch TRANSDERM DAILY #3 patch 03/13/24 03/20/24 Rx Sennosides-Docusate Sodium 1 tab PO DAILY PRN #30 tablet 03/13/24 03/20/24 Rx [Senokot-S] Sodium Bicarbonate Tab 650 mg PO BID #60 tab 03/13/24 03/20/24 Rx Allergies Allergy/AdvReac Type Severity Reaction Status Date / Time No Known Allergies Allergy Verified 03/20/24 03:36 Surgical - Exam Vital Signs Temp Pulse Resp BP Pulse Ox 98.5 F 141 H 18 112/64 97 03/20/24 03:36 03/20/24 03:36 03/20/24 03:36 03/20/24 03:36 03/20/24 03:36 - General well developed, well nourished, moderate distress - Respiratory normal respiratory effort - Genitourinary Normal phallus, normal testes. A fluid collection measuring approximately 2 cm is palpable along the lateral aspect of the left hemiscrotum, near the groin crease. There is no cellulitis or drainage. There is an area of fluctuance. - Psychiatric oriented to time, oriented to person, oriented to place, speech is normal, memory intact Results - Labs 03/23/24 03:24 03/23/24 03:24 Abnormal Lab Results - Last 24 Hours (Table) 03/22/24 03/22/24 03/22/24 Range/Units 11:40 16:50 21:09 WBC (4.50-10.00) X 10*3/uL RBC (4.40-5.60) X 10*6/uL Hgb (13.0-17.0) g/dL Hct (39.6-50.0) % MCV (80.0-97.0) FL MCH (27.0-32.0) pg MCHC (32.0-37.0) g/dL Immature Gran # (0.00-0.04) X 10*3/uL Neutrophils # (1.80-7.70) X 10*3/uL Monocytes # (0.20-1.00) X 10*3/uL NRBC/100 WBC Diff (0.00-0.01) X 10*3/uL Sodium (135-145) mmol/L Carbon Dioxide (21.6-31.8) mmol/L Anion Gap (4.00-12.00) mmol/L POC Glucose (mg/dL) 126 H 132 H 119 H (70-110) mg/dL Calcium (8.7-10.3) mg/dL Total Bilirubin (0.3-1.2) mg/dL AST (14-35) U/L Alkaline Phosphatase (41-126) U/L Albumin (3.8-4.9) g/dL Albumin/Globulin Ratio (1.60-3.17) Ratio 03/23/24 03/23/24 03/23/24 Range/Units 03:24 03:24 06:04 WBC 13.44 H (4.50-10.00) X 10*3/uL RBC 2.70 L (4.40-5.60) X 10*6/uL Hgb 9.8 L (13.0-17.0) g/dL Hct 30.8 L (39.6-50.0) % MCV 114.1 H (80.0-97.0) FL MCH 36.3 H (27.0-32.0) pg MCHC 31.8 L (32.0-37.0) g/dL Immature Gran # 0.07 H (0.00-0.04) X 10*3/uL Neutrophils # 10.28 H (1.80-7.70) X 10*3/uL Monocytes # 1.19 H (0.20-1.00) X 10*3/uL NRBC/100 WBC Diff 0.02 H (0.00-0.01) X 10*3/uL Sodium 131 L (135-145) mmol/L Carbon Dioxide 19.9 L (21.6-31.8) mmol/L Anion Gap 12.10 H (4.00-12.00) mmol/L POC Glucose (mg/dL) 121 H (70-110) mg/dL Calcium 8.2 L (8.7-10.3) mg/dL Total Bilirubin 3.8 H (0.3-1.2) mg/dL AST 86 H (14-35) U/L Alkaline Phosphatase 348 H (41-126) U/L Albumin 3.0 L (3.8-4.9) g/dL Albumin/Globulin Ratio 0.91 L (1.60-3.17) Ratio Microbiology - Last 24 Hours (Table) 03/20/24 14:09 Blood Culture - Preliminary Blood Diabetes panel 03/23/24 Range/Units 03:24 Sodium 131 L (135-145) mmol/L Potassium 4.6 (3.5-5.5) mmol/L Chloride 99 (96-109) mmol/L Carbon Dioxide 19.9 L (21.6-31.8) mmol/L BUN 14.4 (9.0-27.0) mg/dL Creatinine 1.0 (0.6-1.5) mg/dL Glucose 98 (70-110) mg/dL Calcium 8.2 L (8.7-10.3) mg/dL AST 86 H (14-35) U/L ALT 28 (10-49) U/L Alkaline Phosphatase 348 H (41-126) U/L Total Protein 6.3 (6.2-8.2) g/dL Albumin 3.0 L (3.8-4.9) g/dL Calcium panel 03/23/24 Range/Units 03:24 Calcium 8.2 L (8.7-10.3) mg/dL Albumin 3.0 L (3.8-4.9) g/dL Pituitary panel 03/23/24 Range/Units 03:24 Sodium 131 L (135-145) mmol/L Potassium 4.6 (3.5-5.5) mmol/L Chloride 99 (96-109) mmol/L Carbon Dioxide 19.9 L (21.6-31.8) mmol/L BUN 14.4 (9.0-27.0) mg/dL Creatinine 1.0 (0.6-1.5) mg/dL Glucose 98 (70-110) mg/dL Calcium 8.2 L (8.7-10.3) mg/dL Adrenal panel 03/23/24 Range/Units 03:24 Sodium 131 L (135-145) mmol/L Potassium 4.6 (3.5-5.5) mmol/L Chloride 99 (96-109) mmol/L Carbon Dioxide 19.9 L (21.6-31.8) mmol/L BUN 14.4 (9.0-27.0) mg/dL Creatinine 1.0 (0.6-1.5) mg/dL Glucose 98 (70-110) mg/dL Calcium 8.2 L (8.7-10.3) mg/dL Total Bilirubin 3.8 H (0.3-1.2) mg/dL AST 86 H (14-35) U/L ALT 28 (10-49) U/L Alkaline Phosphatase 348 H (41-126) U/L Total Protein 6.3 (6.2-8.2) g/dL Albumin 3.0 L (3.8-4.9) g/dL - Imaging CT scan - pelvis: report reviewed, image reviewed Assessment and Plan (1) Scrotal wall abscess Current Visit: Yes Status: Acute Code(s): N49.2 - INFLAMMATORY DISORDERS OF SCROTUM SNOMED Code(s): 22465087 Plan: The patient has been advised that he has a scrotal abscess, which will require incision and drainage. The procedure was reviewed in detail with him, and he is agreeable to this. This will be performed at the bedside. Cultures will be sent. In the meantime, I would suggest he continue to receive Zosyn (or an alternative antibiotic if felt to be a better option per Dr. Crowder). Time with Patient: Greater than 30
[2024-03-23] MEDS: LIDOCAINE 2% (PF) 20 MG/ML 5 ML VIAL SQ STA (18:13)
--- NOTE | 2024-03-23 18:18 | P.PCN ---
Date of Procedure: 03/23/24 Preoperative Diagnosis: Left scrotal abscess Postoperative Diagnosis: Same Procedure(s) Performed: Incision and drainage, left scrotal abscess Anesthesia: local Surgeon: Mati Arango Estimated Blood Loss (ml): 5 Pathology: none sent Condition: stable Disposition: no change Indications for Procedure: The patient is a 33-year-old white male with a left scrotal abscess, seen on both ultrasound and CT scan. He is febrile despite receiving Zosyn. He has been advised to undergo I&D of the abscess. Operative Findings: Left scrotal abscess, successfully drained. Description of Procedure: The patient lied supine in his hospital bed. The skin overlying the left hemiscrotum and groin crease was prepped. 2% lidocaine was injected subcutaneously. A 15 blade scalpel was then used to make a 1 cm incision over the area of fluctuance. Several cc of purulent fluid drained. Aerobic and anaerobic cultures were sent. After expressing as much pus out as possible, the cavity was packed with 1/4" iodoform gauze. The incision was then covered with a a sterile gauze dressing. The patient tolerated the procedure well.
--- NOTE | 2024-03-23 18:18 | US ---
EXAMINATION TYPE: US paracentesis abd w/image, diagnostic and therapeutic DATE OF EXAM: 03/23/2024 CLINICAL HISTORY: 33-year-old male ascites, liver cirrhosis, distention The procedure was discussed with the patient. The risks, complications, benefits, and alternatives we re discussed and any questions were answered. Informed consent was obtained. The patient was placed s upine on the ultrasound table and prepped and draped in the usual sterile fashion. All elements of maximal barrier technique were utilized. Ultrasound was utilized to determine the precise skin entry site along the left lower quadrant/left f lank. A 5 Portuguese One-Step catheter and trocar technique was utilized to access the ascites collection under direct ultrasound guidance. On initial 100 mL sample of clear saba fluid was collected and labeled for laboratory analysis. A to karl of approximately 3.7 L of fluid was removed. Catheter was removed, hemostasis obtained, and a dressing placed. The patient was stable throughout the procedure and remained stable upon discharge from Department of Radiology. IMPRESSION: Successful diagnostic and therapeutic paracentesis under ultrasound guidance. 3.7 L of fluid removed. [facility], , 03/23/2024 6:16 PM
[2024-03-23] MEDS: HYDROmorphone 1 MG/ML 1 ML SYRINGE IVP PRN (18:20)
[2024-03-23 20:35] LABS: Glucose,Whole Blood 173 mg/dL (70-110)
--- NOTE | 2024-03-23 21:23 | PN ---
PROGRESS NOTE DATE OF SERVICE: 03/23/2024 SUBJECTIVE: This is a 33-year-old gentleman who was admitted after acute alcohol intoxication, also had left epididymo-orchitis. No chest pain. No palpitation. OBJECTIVE: VITAL SIGNS: Pulse is 114, blood pressure 107/52, respirations 20. CHEST: Clear to auscultation. CARDIOVASCULAR: S1, S2. ABDOMEN: Soft, ascites present. : Left epididymo-orchitis present. LABORATORY DATA: Reviewed. ASSESSMENT: 1. Acute alcohol intoxication. 2. Acute delirium tremens. 3. Acute left epididymo-orchitis. 4. Chronic liver disease with possible ascites. 5. Diabetes mellitus, type 2. 6. Alcohol intoxication. 7. Multiple complex medical issues. RECOMMENDATIONS: Recommend to continue current management and continue symptomatic treatment. Repeat labs. Otherwise, scrotal ultrasound was noted and CT scan of the abdomen and pelvis was also reviewed. They showed stable hepatocellular disease. Recommend repeat labs. Pain management. Further recommendations to follow. MMODL / IJN: [id number] /
[2024-03-24 02:57] LABS: Appearance,BF Hazy (Clear)
[2024-03-24 03:39] LABS: T. Protein, Body Fluid Source Ascites; Total Protein, Body Fluid >3600 mg/dL
[2024-03-24 03:46] LABS: Albumin, Fluid Source Ascities
[2024-03-24 06:47] LABS: Glucose,Whole Blood 97 mg/dL (70-110)
[2024-03-24 09:01] LABS: Basophils # (A) 0.03 X 10*3/uL (0.00-0.10); Basophils % (A) 0.3 %; Eosinophils # (A) 0.11 X 10*3/uL (0.04-0.35); HCT 28.5 % (39.6-50.0); HGB 9.2 g/dL (13.0-17.0); Lymphocytes # (A) 1.75 X 10*3/uL (0.90-5.00); Lymphocytes % (A) 16.2 %; MCH 36.1 pg (27.0-32.0); MCHC 32.3 g/dL (32.0-37.0); MCV 111.8 FL (80.0-97.0); Mean Platelet Volume 12.1 FL (9.5-12.2); Monocytes # (A) 1.34 X 10*3/uL (0.20-1.00); Monocytes % (A) 12.4 %; NRBC Per 100 WBC 0 X 10*3/uL (0.00-0.01); Neutrophils # (A) 7.48 X 10*3/uL (1.80-7.70); Neutrophils % (A) 69.5 %; Platelet Count 142 X 10*3/uL (140-440); RBC 2.55 X 10*6/uL (4.40-5.60); RDW 13.5 % (11.5-14.5); WBC 10.77 X 10*3/uL (4.50-10.00)
[2024-03-24 09:23] LABS: BUN/Creat Ratio 17.85 Ratio (12.00-20.00); Blood Urea Nitrogen 23.2 mg/dL (9.0-27.0); Carbon Dioxide 19.2 mmol/L (21.6-31.8); Chloride 100 mmol/L (96-109); Glucose 115 mg/dL (70-110); Potassium 4.3 mmol/L (3.5-5.5); Sodium 132 mmol/L (135-145)
--- NOTE | 2024-03-24 09:47 | P.PN ---
Subjective This is a pleasant 33 years old male with past medical history of multiple medical problems including alcohol liver cirrhosis and stigma. Presents for signs symptoms of alcohol withdrawal and left groin cellulitis and abscess. He was started on antibiotics Zosyn. He was evaluated by urologist s/p I&D yesterday. Today's postop day #1. He still complains from a bleeding per rectum secondary to hemorrhoids and he was evaluated by general surgery team with no need for surgical intervention. He still complains from pain in his left groin wound and rectum about 9/10 this morning however patient looks calm. No abdominal pain or distention and abdominal looks soft. No chest pain or dyspnea No significant signs symptoms of alcohol withdrawal Patient also evaluated by GI team however they signed off yesterday as they are not available this weekend and this coming week in this facility. Blood pressure is borderline 100/57 He had fever 101.3 but no fever today. Mildly tachycardic INR 1.7 Leukocytosis improving 13 down to 10.7, hemoglobin slightly less 9.8 down to 9.2 Liver enzymes and bilirubin are elevated but ALT is within the reference range Procalcitonin is elevated 4.3 as well as CRP at 8.7 Urine analysis is negative Hemoglobin A1c is elevated at 9.9 CT of the abdomen pelvis without contrast showing hepatomegaly and splenomegaly with gallbladder surgically absent Scrotal ultrasound showing possible abscess 1.6 x 1.7 cm Echocardiogram showing ejection fraction 55 to 60% Review of systems CONSTITUTIONAL: No fever, no malaise, no fatigue. HEENT: No recent visual problems or hearing problems. Denied any sore throat. CARDIOVASCULAR: No orthopnea, PND, no palpitations, no syncope. NEUROLOGICAL: No headaches, no weakness, no numbness. HEMATOLOGICAL: Denies any bleeding or petechiae. GENITOURINARY: Denies any burning micturition, frequency, or urgency. MUSCULOSKELETAL/RHEUMATOLOGICAL: Denies any joint pain, swelling, or any muscle pain. Active Medications Generic Name Dose Route Start Last Admin Trade Name Freq PRN Reason Stop Dose Admin Dapagliflozin 10 mg 03/20/24 13:45 03/24/24 09:17 Dapagliflozin Propanediol 10 Mg Tablet PO 10 mg DAILY BREN Administration Dextrose/Water 25 ml 03/20/24 13:28 Dextrose 50% Syringe 50 Ml IVP PER PROTOCOL PRN Hypoglycemia Protocol Dextrose/Water 50 ml 03/20/24 13:28 Dextrose 50% Syringe 50 Ml IVP PER PROTOCOL PRN Hypoglycemia Protocol Docusate Sodium 100 mg 03/21/24 21:00 03/24/24 09:16 Docusate 100 Mg Cap PO 100 mg BID BREN Administration Folic Acid 1 mg 03/20/24 13:45 03/24/24 09:17 Folic Acid 1 Mg Tab PO 1 mg DAILY BREN Administration Furosemide 40 mg 03/23/24 09:00 03/24/24 09:18 Furosemide 40 Mg Tab PO 40 mg DAILY BREN Administration Hydrocortisone 1 applic 03/20/24 18:00 03/23/24 22:33 Hydrocortisone 2.5% Rectal Cream 30 Gm Tube RECTAL 1 applic QID BREN Administration Hydrocortisone Acetate 25 mg 03/20/24 21:00 03/24/24 09:20 Hydrocortisone Suppository 25 Mg Supp RECTAL 25 mg BID BREN Administration Hydromorphone HCl 1 mg 03/23/24 17:24 03/24/24 03:24 Hydromorphone 1 Mg/Ml 1 Ml Syringe IVP 1 mg Q4HR PRN Administration Pain Sodium Chloride 1,000 mls @ 20 mls/hr 03/20/24 05:45 03/23/24 22:33 Saline 0.9% IV 20 mls/hr .Q24H BREN Administration Piperacillin Sod/Tazobactam 100 mls @ 25 mls/hr 03/21/24 16:00 03/24/24 09:11 Sod 3.375 gm/ Sodium Chloride IVPB 25 mls/hr Q8HR BREN Administration Protocol Ibuprofen 400 mg 03/23/24 17:11 03/23/24 17:18 Ibuprofen 400 Mg Tab PO 400 mg Q6HR PRN Administration Pain Insulin Aspart 0 unit 03/20/24 17:30 03/24/24 09:04 Insulin Aspart (Novolog) 100 Unit/Ml Vial SQ Not Given ACHS [facility] Protocol Insulin Detemir 30 unit 03/20/24 17:30 03/23/24 19:48 Insulin Detemir (Levemir) 100 Unit/Ml Syr SQ 30 unit W/SUPPER BREN Administration Lactulose 20 gm 03/20/24 21:00 03/24/24 09:13 Lactulose 20 Gm/30 Ml Cup PO 20 gm BID BREN Administration Lisinopril 10 mg 03/20/24 13:30 03/24/24 09:13 Lisinopril 10 Mg Tab PO 10 mg DAILY BREN Administration Lorazepam 1 mg 03/20/24 03:41 03/21/24 02:21 Lorazepam 2 Mg/Ml Inj IV 1 mg Q1HR PRN Administration CIWA 10 to 15 Lorazepam 1 mg 03/20/24 03:41 03/21/24 06:39 Lorazepam 2 Mg/Ml Inj IV 1 mg Q2HR PRN Administration CIWA 8 or 9 Magnesium Oxide 400 mg 03/20/24 13:30 03/24/24 09:17 Magnesium Oxide 400 Mg Tab PO 400 mg DAILY BREN Administration Naloxone HCl 0.2 mg 03/20/24 05:40 Naloxone 0.4 Mg/Ml 1 Ml Vial IV Q2M PRN Opioid Reversal Nicotine 1 patch 03/20/24 13:30 03/23/24 09:41 Nicotine 21mg/24hr Patch TRANSDERM 1 patch DAILY BREN Administration Ondansetron HCl 4 mg 03/21/24 22:34 03/23/24 09:39 Ondansetron 4 Mg/2 Ml Vial IVP 4 mg Q6HR PRN Administration Nausea And Vomiting Pantoprazole Sodium 40 mg 03/20/24 13:30 03/24/24 09:12 Pantoprazole 40 Mg/10 Ml Vial IVP 40 mg BID BREN Administration Propranolol HCl 10 mg 03/21/24 11:45 03/24/24 09:21 Propranolol 10 Mg Tab PO 10 mg BID BREN Administration Senna/Docusate Sodium 1 each 03/20/24 13:14 Sennosides-Docusate Sodium 1 Each Tab PO DAILY PRN Constipation Sodium Bicarbonate 650 mg 03/20/24 21:00 03/24/24 09:13 Sodium Bicarbonate Tab 650 Mg Tab PO 650 mg BID BREN Administration Spironolactone 50 mg 03/23/24 09:00 03/24/24 09:13 Spironolactone 25 Mg Tab PO 50 mg BID BREN Administration Thiamine HCl 100 mg 03/20/24 13:30 03/24/24 09:13 Thiamine 100 Mg Tab PO 100 mg DAILY BREN Administration Objective - Vital Signs Vital signs: Vital Signs Temp 97.5 F L 03/24/24 06:48 Pulse 83 03/24/24 06:48 Resp 17 03/24/24 06:48 BP 100/57 03/24/24 06:48 Pulse Ox 93 L 03/24/24 06:48 FiO2 Intake & Output 03/23/24 03/24/24 03/24/24 18:59 06:59 18:59 Weight 86.5 kg Other: Voiding Method Toilet # Voids 1 4 - Exam GENERAL: The patient is alert and oriented x3, not in any acute distress. Well developed, well nourished. HEENT: Pupils are round and equally reacting to light. EOMI. No scleral icterus. No conjunctival pallor. Normocephalic, atraumatic. No pharyngeal erythema. No thyromegaly. CARDIOVASCULAR: S1 and S2 present. No murmurs, rubs, or gallops. PULMONARY: Chest is clear to auscultation, no wheezing , no crackles. -ABDOMEN: Soft, nontender, nondistended, normoactive bowel sounds. No palpable organomegaly. Left groin/scrotal wound with wound weak in place, cellulitis surrounding is significantly improving MUSCULOSKELETAL: No joint swelling or deformity. EXTREMITIES: No cyanosis, clubbing, or pedal edema. NEUROLOGICAL: Gross neurological examination did not reveal any focal deficits. SKIN: No rashes. no petechiae. - Labs CBC & Chem 7: 03/24/24 03:42 03/24/24 03:42 Labs: Abnormal Lab Results - Last 24 Hours (Table) 03/23/24 03/23/24 03/23/24 Range/Units 03:24 03:24 13:45 WBC (4.50-10.00) X 10*3/uL RBC (4.40-5.60) X 10*6/uL Hgb (13.0-17.0) g/dL Hct (39.6-50.0) % MCV (80.0-97.0) FL MCH (27.0-32.0) pg Immature Gran # (0.00-0.04) X 10*3/uL Monocytes # (0.20-1.00) X 10*3/uL Sodium (135-145) mmol/L Carbon Dioxide (21.6-31.8) mmol/L Anion Gap (4.00-12.00) mmol/L Glucose (70-110) mg/dL POC Glucose (mg/dL) (70-110) mg/dL Calcium (8.7-10.3) mg/dL C-Reactive Protein 8.80 H (0.00-0.80) mg/dL Procalcitonin 4.33 H (0.02-0.50) ng/mL Urine Protein Trace H (Negative) Urine Glucose (UA) 4+ H (Negative) Urine Bilirubin 1+ H (Negative) Fluid Appearance (Clear) 03/23/24 03/23/24 03/23/24 Range/Units 14:00 16:22 20:33 WBC (4.50-10.00) X 10*3/uL RBC (4.40-5.60) X 10*6/uL Hgb (13.0-17.0) g/dL Hct (39.6-50.0) % MCV (80.0-97.0) FL MCH (27.0-32.0) pg Immature Gran # (0.00-0.04) X 10*3/uL Monocytes # (0.20-1.00) X 10*3/uL Sodium (135-145) mmol/L Carbon Dioxide (21.6-31.8) mmol/L Anion Gap (4.00-12.00) mmol/L Glucose (70-110) mg/dL POC Glucose (mg/dL) 172 H 173 H (70-110) mg/dL Calcium (8.7-10.3) mg/dL C-Reactive Protein (0.00-0.80) mg/dL Procalcitonin (0.02-0.50) ng/mL Urine Protein (Negative) Urine Glucose (UA) (Negative) Urine Bilirubin (Negative) Fluid Appearance Hazy A (Clear) 03/24/24 03/24/24 Range/Units 03:42 03:42 WBC 10.77 H (4.50-10.00) X 10*3/uL RBC 2.55 L (4.40-5.60) X 10*6/uL Hgb 9.2 L (13.0-17.0) g/dL Hct 28.5 L (39.6-50.0) % MCV 111.8 H (80.0-97.0) FL MCH 36.1 H (27.0-32.0) pg Immature Gran # 0.06 H (0.00-0.04) X 10*3/uL Monocytes # 1.34 H (0.20-1.00) X 10*3/uL Sodium 132 L (135-145) mmol/L Carbon Dioxide 19.2 L (21.6-31.8) mmol/L Anion Gap 12.80 H (4.00-12.00) mmol/L Glucose 115 H (70-110) mg/dL POC Glucose (mg/dL) (70-110) mg/dL Calcium 8.0 L (8.7-10.3) mg/dL C-Reactive Protein (0.00-0.80) mg/dL Procalcitonin (0.02-0.50) ng/mL Urine Protein (Negative) Urine Glucose (UA) (Negative) Urine Bilirubin (Negative) Fluid Appearance (Clear) Microbiology - Last 24 Hours (Table) 03/22/24 12:59 Blood Culture - Preliminary Blood 03/20/24 14:09 Blood Culture - Preliminary Blood Assessment and Plan Assessment: Left scrotal abscess and left groin cellulitis status post I&D of his left scrotal abscess on 03/24 Alcohol withdrawal and alcohol use disorder Bleeding per rectum secondary to hemorrhoids Alcoholic liver cirrhosis Elevated ammonia with no evidence of hepatic encephalopathy mild alcoholic transaminitis and jaundice Plan: Continue with antibiotic Zosyn Follow-up wound culture and blood culture Infectious disease and urologist on the case GI service signing off for his alcoholic liver disease and other medical problems General surgical team following closely Continue with CIWA protocol and thiamine Continue with insulin and close monitoring of glucose Labs and medication were reviewed.. Continue same treatment. Continue with symptomatic treatment. Resume home medication. Monitor labs and vitals. DVT and GI prophylaxis. Further recommendations as per clinical course of the patient DVT prophylaxis: Subcutaneous heparin GI Prophylaxis: Pepcid Prognosis is guarded
--- NOTE | 2024-03-24 09:58 | P.CONS ---
History of Present Illness - Reason for Consult Consult date: 03/23/24 left testicle/ scrotal swelling redness, wbc elev, temps Requesting physician: Yuli Willingham - Chief Complaint Left scrotal pain x few days - History of Present Illness Patient is a 33-year-old male with a past medical history significant for hypertension alcohol abuse/cirrhosis current everyday smoker presenting to the hospital 4 days ago for evaluation of alcohol withdrawal symptoms patient also complaining of chronic hemorrhoids causing chronic rectal pain he did have abdominal distention with evidence of ascites requiring paracentesis completed today patient also complaining of pain to the left scrotal area that apparently been going on for the last few days patient describing the pain to be sharp almost 10 out of 10 in severity and mention the pain medication not adequate 1 more pain medication patient denies any trauma or scratching the area did not have any open wound or any drainage patient on presentation to the hospital did have a fever of 100 F and he did spike a fever of 101.3 this afternoon, patient was tachycardic but not hypotensive or hypoxic and no need for supplemental oxygen patient did have a white count of 13.4 with a left shift patient has been started on Zosyn empirically infectious disease was consulted for possible abscess to the left scrotal area Review of Systems Positive point and negatives has been mentioned in the HPI, complete review of systems was performed and all other systems are negative Past Medical History Past Medical History: Hypertension, Liver Disease Additional Past Medical History / Comment(s): Nephrolithiasis, ETOH abuse with past withdrawal tremors, past alcoholic hepatitis/acute severe kidney injury/hyperphosphatemia/acute metabolic encephalopathy from renal failure. History of Any Multi-Drug Resistant Organisms: None Reported Past Surgical History: Cholecystectomy, Tonsillectomy Past Anesthesia/Blood Transfusion Reactions: No Reported Reaction Past Psychological History: No Psychological Hx Reported Additional Psychological History / Comment(s): Pt resides with his mother. He is independent. Smoking Status: Current every day smoker Past Alcohol Use History: Abuse, Daily Additional Past Alcohol Use History / Comment(s): Pt started smoking as a teen and is a ppd smoker. He states he was drinking a pint of vodka a day prior to getting his gallbladder out but since then he drinks more occationally. Past Drug Use History: Marijuana Additional Drug Use History / Comment(s): Pt states he smokes 1 joint every day - Past Family History Father Family Medical History: Myocardial Infarction (DC) Mother Family Medical History: Hypertension Additional Family Medical History / Comment(s): heart stent Medications and Allergies Home Medications Medication Instructions Recorded Confirmed Type Pantoprazole [Protonix] 40 mg PO DAILY 09/22/23 03/20/24 History Thiamine [Vitamin B-1] 100 mg PO DAILY #30 tab 09/30/23 03/20/24 Rx Folic Acid 1 mg PO DAILY 02/20/24 03/20/24 History Spironolactone [Aldactone] 25 mg PO DAILY #30 tablet 02/21/24 03/20/24 Rx lisinopriL [Zestril] 10 mg PO DAILY #30 tab 02/21/24 03/20/24 Rx Dapagliflozin Propanediol [Farxiga] 10 mg PO DAILY 03/08/24 03/20/24 History Glucagon Emergency Kit 1 mg IM ONCE PRN 03/08/24 03/20/24 History Hydrocortisone Pr Cream 1 applic RECTAL QID 03/08/24 03/20/24 History [Proctosol-Hc 2.5%] Insulin Glargine,Hum.rec.anlog 30 units SQ W/SUPPER 03/08/24 03/20/24 History [Lantus Solostar Pen] Insulin Lispro [Insulin Lispro See Protocol SQ ACHS 03/08/24 03/20/24 History Kwikpen U-100] Hydrocortisone Suppository 25 mg RECTAL BID 7 Days #14 03/13/24 03/20/24 Rx [Anusol-Hc] suppositor Magnesium Oxide [Mag-Ox] 400 mg PO DAILY #30 tab 03/13/24 03/20/24 Rx Nicotine 14Mg/24Hr Patch [Habitrol] 1 patch TRANSDERM DAILY #3 patch 03/13/24 03/20/24 Rx Sennosides-Docusate Sodium 1 tab PO DAILY PRN #30 tablet 03/13/24 03/20/24 Rx [Senokot-S] Sodium Bicarbonate Tab 650 mg PO BID #60 tab 03/13/24 03/20/24 Rx Allergies Allergy/AdvReac Type Severity Reaction Status Date / Time No Known Allergies Allergy Verified 03/20/24 03:36 Physical Exam Vitals: Vital Signs Temp Pulse Resp BP BP Pulse Ox 03/23/24 11:08 114 H 107/52 92 L 10/11/24 09:58 120 H 96 03/23/24 09:34 99.7 F H 118 H 113/57 03/23/24 09:07 95 03/23/24 06:51 100.2 F H 96 16 91/50 95 03/23/24 00:22 99.9 F H 103 H 15 103/65 98 03/22/24 20:24 103 H 127/69 03/22/24 19:09 98.6 F 91 15 95/63 98 03/22/24 13:02 97.7 F 99 18 115/68 97 Intake and Output 03/22/24 03/23/24 03/23/24 22:59 06:59 14:59 Intake Total 260 1600 Balance 260 1600 Intake: Intake, IV Titration 260 Amount Piperacillin-Tazobactam 3 100 .375 gm In Sodium Chloride 0.9% 100 ml @ 25 mls/hr IVPB Q8HR BREN Rx# :[id number] Sodium Chloride 0.9% 1, 160 000 ml @ 20 mls/hr IV . Q24H BREN Rx#:[id number] Oral 1600 Other: Voiding Method Toilet # Voids 6 GENERAL DESCRIPTION: Middle-aged male lying in bed, no distress. No tachypnea or accessory muscle of respiration use. HEENT: Shows Pallor , no scleral icterus. Oral mucous membrane is dry. No pharyngeal erythema or thrush NECK: Trachea central, no thyromegaly. LUNGS: Unlabored breathing. Clear to auscultation anteriorly. No wheeze or crackle. HEART: S1, S2, regular rate and rhythm. No loud murmur ABDOMEN: Soft, no tenderness , : Left scrotal area did have a some swelling redness and tenderness to touch but no drainage EXTREMITIES: No edema of feet. SKIN: No rash, no masses palpable. NEUROLOGICAL: The patient is awake, alert, oriented x3, mood and affect normal. Results CBC & Chem 7: 03/24/24 03:42 03/24/24 03:42 Labs: Abnormal Lab Results - Last 24 Hours (Table) 03/22/24 03/22/24 03/22/24 Range/Units 11:40 16:50 21:09 WBC (4.50-10.00) X 10*3/uL RBC (4.40-5.60) X 10*6/uL Hgb (13.0-17.0) g/dL Hct (39.6-50.0) % MCV (80.0-97.0) FL MCH (27.0-32.0) pg MCHC (32.0-37.0) g/dL Immature Gran # (0.00-0.04) X 10*3/uL Neutrophils # (1.80-7.70) X 10*3/uL Monocytes # (0.20-1.00) X 10*3/uL NRBC/100 WBC Diff (0.00-0.01) X 10*3/uL Sodium (135-145) mmol/L Carbon Dioxide (21.6-31.8) mmol/L Anion Gap (4.00-12.00) mmol/L POC Glucose (mg/dL) 126 H 132 H 119 H (70-110) mg/dL Calcium (8.7-10.3) mg/dL Total Bilirubin (0.3-1.2) mg/dL AST (14-35) U/L Alkaline Phosphatase (41-126) U/L Albumin (3.8-4.9) g/dL Albumin/Globulin Ratio (1.60-3.17) Ratio 03/23/24 03/23/24 03/23/24 Range/Units 03:24 03:24 06:04 WBC 13.44 H (4.50-10.00) X 10*3/uL RBC 2.70 L (4.40-5.60) X 10*6/uL Hgb 9.8 L (13.0-17.0) g/dL Hct 30.8 L (39.6-50.0) % MCV 114.1 H (80.0-97.0) FL MCH 36.3 H (27.0-32.0) pg MCHC 31.8 L (32.0-37.0) g/dL Immature Gran # 0.07 H (0.00-0.04) X 10*3/uL Neutrophils # 10.28 H (1.80-7.70) X 10*3/uL Monocytes # 1.19 H (0.20-1.00) X 10*3/uL NRBC/100 WBC Diff 0.02 H (0.00-0.01) X 10*3/uL Sodium 131 L (135-145) mmol/L Carbon Dioxide 19.9 L (21.6-31.8) mmol/L Anion Gap 12.10 H (4.00-12.00) mmol/L POC Glucose (mg/dL) 121 H (70-110) mg/dL Calcium 8.2 L (8.7-10.3) mg/dL Total Bilirubin 3.8 H (0.3-1.2) mg/dL AST 86 H (14-35) U/L Alkaline Phosphatase 348 H (41-126) U/L Albumin 3.0 L (3.8-4.9) g/dL Albumin/Globulin Ratio 0.91 L (1.60-3.17) Ratio Microbiology - Last 24 Hours (Table) 03/20/24 14:09 Blood Culture - Preliminary Blood Assessment and Plan (1) Sepsis Current Visit: Yes Status: Acute Code(s): A41.9 - SEPSIS, UNSPECIFIED ORGANISM SNOMED Code(s): 92101989 (2) Scrotal abscess Current Visit: Yes Status: Acute Code(s): N49.2 - INFLAMMATORY DISORDERS OF SCROTUM SNOMED Code(s): 45499313 Plan: 1patient with sepsis in this patient who did have a fever tachycardia elevated white count meeting criteria for skull source likely left scrotal abscess likely from gram-positive skin maldonado gram-negative infection not entirely excluded. 2await urology evaluation for surgical drainage and deep culture. 3Zosyn 3.375 g. Every 8 hour to continue while waiting for the culture to jong vuong. We will follow on clinical condition and cultures to further adjust medication if needed Thank you for this consultation we will follow the patient along with you Dictation was produced using [employer] dictation software. please excuse any grammatical, word or spelling errors. Time with Patient: Greater than 30
--- NOTE | 2024-03-24 10:53 | P.PN ---
Subjective Progress Note Date: 03/24/24 Principal diagnosis: Scrotal abscess The patient underwent I&D of a left scrotal abscess on March 23, 2024. He reports mildly diminished discomfort. He has been afebrile since the I&D. Cultures are pending. He continues to receive Zosyn. Objective - Vital Signs Vital signs: Vital Signs Temp 97.5 F L 03/24/24 06:48 Pulse 83 03/24/24 06:48 Resp 17 03/24/24 06:48 BP 100/57 03/24/24 06:48 Pulse Ox 93 L 03/24/24 06:48 FiO2 Intake & Output 03/23/24 03/24/24 03/24/24 18:59 06:59 18:59 Weight 86.5 kg Other: Voiding Method Toilet # Voids 1 4 - Constitutional General appearance: Present: average body habitus, cooperative, no acute distress - Genitourinary Genitourinary Comment(s): Normal phallus. Normal testes. The left scrotal wound is clean, with mild sanguinous drainage. There is no cellulitis, fluctuance, or purulence noted. - Psychiatric Psychiatric: Present: A&O x's 3 - Labs CBC & Chem 7: 03/24/24 03:42 03/24/24 03:42 Labs: Abnormal Lab Results - Last 24 Hours (Table) 03/23/24 03/23/24 03/23/24 Range/Units 03:24 03:24 13:45 WBC (4.50-10.00) X 10*3/uL RBC (4.40-5.60) X 10*6/uL Hgb (13.0-17.0) g/dL Hct (39.6-50.0) % MCV (80.0-97.0) FL MCH (27.0-32.0) pg Immature Gran # (0.00-0.04) X 10*3/uL Monocytes # (0.20-1.00) X 10*3/uL Sodium (135-145) mmol/L Carbon Dioxide (21.6-31.8) mmol/L Anion Gap (4.00-12.00) mmol/L Glucose (70-110) mg/dL POC Glucose (mg/dL) (70-110) mg/dL Calcium (8.7-10.3) mg/dL C-Reactive Protein 8.80 H (0.00-0.80) mg/dL Procalcitonin 4.33 H (0.02-0.50) ng/mL Urine Protein Trace H (Negative) Urine Glucose (UA) 4+ H (Negative) Urine Bilirubin 1+ H (Negative) Fluid Appearance (Clear) 03/23/24 03/23/24 03/23/24 Range/Units 14:00 16:22 20:33 WBC (4.50-10.00) X 10*3/uL RBC (4.40-5.60) X 10*6/uL Hgb (13.0-17.0) g/dL Hct (39.6-50.0) % MCV (80.0-97.0) FL MCH (27.0-32.0) pg Immature Gran # (0.00-0.04) X 10*3/uL Monocytes # (0.20-1.00) X 10*3/uL Sodium (135-145) mmol/L Carbon Dioxide (21.6-31.8) mmol/L Anion Gap (4.00-12.00) mmol/L Glucose (70-110) mg/dL POC Glucose (mg/dL) 172 H 173 H (70-110) mg/dL Calcium (8.7-10.3) mg/dL C-Reactive Protein (0.00-0.80) mg/dL Procalcitonin (0.02-0.50) ng/mL Urine Protein (Negative) Urine Glucose (UA) (Negative) Urine Bilirubin (Negative) Fluid Appearance Hazy A (Clear) 03/24/24 03/24/24 Range/Units 03:42 03:42 WBC 10.77 H (4.50-10.00) X 10*3/uL RBC 2.55 L (4.40-5.60) X 10*6/uL Hgb 9.2 L (13.0-17.0) g/dL Hct 28.5 L (39.6-50.0) % MCV 111.8 H (80.0-97.0) FL MCH 36.1 H (27.0-32.0) pg Immature Gran # 0.06 H (0.00-0.04) X 10*3/uL Monocytes # 1.34 H (0.20-1.00) X 10*3/uL Sodium 132 L (135-145) mmol/L Carbon Dioxide 19.2 L (21.6-31.8) mmol/L Anion Gap 12.80 H (4.00-12.00) mmol/L Glucose 115 H (70-110) mg/dL POC Glucose (mg/dL) (70-110) mg/dL Calcium 8.0 L (8.7-10.3) mg/dL C-Reactive Protein (0.00-0.80) mg/dL Procalcitonin (0.02-0.50) ng/mL Urine Protein (Negative) Urine Glucose (UA) (Negative) Urine Bilirubin (Negative) Fluid Appearance (Clear) Microbiology - Last 24 Hours (Table) 03/22/24 12:59 Blood Culture - Preliminary Blood 03/20/24 14:09 Blood Culture - Preliminary Blood Assessment and Plan (1) Scrotal wall abscess Current Visit: Yes Status: Acute Code(s): N49.2 - INFLAMMATORY DISORDERS OF SCROTUM SNOMED Code(s): 80022227 Plan: - Local wound care consisting of packing the wound twice daily with iodoform gauze. - Await aerobic and anaerobic culture results. - Continue Zosyn in the meantime.
[2024-03-24 11:20] LABS: Glucose,Whole Blood 114 mg/dL (70-110)
--- NOTE | 2024-03-24 15:35 | P.PN ---
Subjective Progress Note Date: 03/24/24 CHIEF COMPLAINT: Hemorrhoids and groin pain HISTORY OF PRESENT ILLNESS: The patient is a 33-year-old male with ETOH liver cirrhosis. He is status post paracentesis and I&D of the left groin. WBC is impr oving. No further moderate bleeding from hemorrhoids ROS: No reports of nausea and vomiting. No fevers or chills. No new chest pain. No productive sputum PHYSICAL EXAM: VITAL SIGNS: Reviewed CONSTITUTIONAL: Well developed and in no acute distress. EYES: Conjuctivae without sclera icterus. Extraocular movements grossly intact. HEAD, EARS, NOSE, THROAT: Moist buccal mucosa. Head is atraumatic, normocephalic. Hears conversational speech. No nasal drainage. RESPIRATORY: Non-labored respirations and equal bilateral excursions. CARDIOVASCULAR: Palpable 2+ radial pulses. ABDOMEN: Ascites with abdominal striae. MUSCULOSKELETAL: No gross deformity of the lower extremities noted. No cl ubbing. No cyanosis. SKIN: Good skin turgor. Well perfused. NEUROLOGIC: Cranial nerves II through XII grossly intact. No focal or lateralizing signs. PSYCH: Appropriate affect. Alert and oriented to person, place and time. CLINICAL LABS: Reviewed. WBC over 10.5, trending downward ASSESSMENT: 1. Hemorrhoids and rectal bleeding. 2. Alcohol liver cirrhosis with ascites 3. Left groin abscess. PLAN: 1. Antibiotic management per infectious disease 2. Management of ascites with sodium restriction for ascites 3. Monitor hemoglobin Objective - Vital Signs Vital signs: Vital Signs Temp 98.2 F 03/24/24 12:57 Pulse 86 03/24/24 12:57 Resp 17 03/24/24 12:57 BP 93/58 03/24/24 12:57 Pulse Ox 94 L 03/24/24 12:57 FiO2 Intake & Output 03/23/24 03/24/24 03/24/24 18:59 06:59 18:59 Weight 86.5 kg Other: Voiding Method Toilet # Voids 1 4 - Labs CBC & Chem 7: 03/24/24 03:42 03/24/24 03:42 Labs: Abnormal Lab Results - Last 24 Hours (Table) 03/23/24 03/23/24 03/23/24 Range/Units 14:00 16:22 20:33 WBC (4.50-10.00) X 10*3/uL RBC (4.40-5.60) X 10*6/uL Hgb (13.0-17.0) g/dL Hct (39.6-50.0) % MCV (80.0-97.0) FL MCH (27.0-32.0) pg Immature Gran # (0.00-0.04) X 10*3/uL Monocytes # (0.20-1.00) X 10*3/uL Sodium (135-145) mmol/L Carbon Dioxide (21.6-31.8) mmol/L Anion Gap (4.00-12.00) mmol/L Glucose (70-110) mg/dL POC Glucose (mg/dL) 172 H 173 H (70-110) mg/dL Calcium (8.7-10.3) mg/dL Fluid Appearance Hazy A (Clear) 03/24/24 03/24/24 03/24/24 Range/Units 03:42 03:42 11:18 WBC 10.77 H (4.50-10.00) X 10*3/uL RBC 2.55 L (4.40-5.60) X 10*6/uL Hgb 9.2 L (13.0-17.0) g/dL Hct 28.5 L (39.6-50.0) % MCV 111.8 H (80.0-97.0) FL MCH 36.1 H (27.0-32.0) pg Immature Gran # 0.06 H (0.00-0.04) X 10*3/uL Monocytes # 1.34 H (0.20-1.00) X 10*3/uL Sodium 132 L (135-145) mmol/L Carbon Dioxide 19.2 L (21.6-31.8) mmol/L Anion Gap 12.80 H (4.00-12.00) mmol/L Glucose 115 H (70-110) mg/dL POC Glucose (mg/dL) 114 H (70-110) mg/dL Calcium 8.0 L (8.7-10.3) mg/dL Fluid Appearance (Clear) Microbiology - Last 24 Hours (Table) 03/22/24 12:59 Blood Culture - Preliminary Blood 03/20/24 14:09 Blood Culture - Preliminary Blood
[2024-03-24 16:20] LABS: Glucose,Whole Blood 121 mg/dL (70-110)
[2024-03-24 20:58] LABS: Glucose,Whole Blood 103 mg/dL (70-110)
[2024-03-25 06:49] LABS: Glucose,Whole Blood 93 mg/dL (70-110)
[2024-03-25 10:35] LABS: Basophils # (A) 0.06 X 10*3/uL (0.00-0.10); Basophils % (A) 0.4 %; Eosinophils # (A) 0.23 X 10*3/uL (0.04-0.35); Eosinophils % (A) 1.6 %; HCT 31.5 % (39.6-50.0); Lymphocytes # (A) 2.07 X 10*3/uL (0.90-5.00); Lymphocytes % (A) 14.5 %; MCH 35.6 pg (27.0-32.0); MCHC 31.7 g/dL (32.0-37.0); MCV 112.1 FL (80.0-97.0); Macrocytosis (M) 2+; Mean Platelet Volume 11.7 FL (9.5-12.2); Monocytes # (A) 1.44 X 10*3/uL (0.20-1.00); Monocytes % (A) 10.1 %; NRBC Per 100 WBC 0.02 X 10*3/uL (0.00-0.01); Neutrophils # (A) 10.38 X 10*3/uL (1.80-7.70); Neutrophils % (A) 72.4 %; Platelet Count 191 X 10*3/uL (140-440); RBC 2.81 X 10*6/uL (4.40-5.60); RDW 13.5 % (11.5-14.5); WBC 14.32 X 10*3/uL (4.50-10.00)
[2024-03-25 10:38] LABS: ALT 29 U/L (10-49); AST 89 U/L (14-35); Albumin/Globulin Ratio 0.88 Ratio (1.60-3.17); Alkaline Phosphatase 298 U/L (41-126); Bilirubin, Conjugated 2.84 mg/dL (0.20-0.40); Bilirubin,Unconjugated 0.86 mg/dL (0.20-1.00); Calcium 8.5 mg/dL (8.7-10.3); Carbon Dioxide 20.9 mmol/L (21.6-31.8); Chloride 100 mmol/L (96-109); Globulin 3.4 g/dL (1.6-3.3); Glucose 73 mg/dL (70-110); Potassium 4.5 mmol/L (3.5-5.5); Sodium 132 mmol/L (135-145); Total Bilirubin 3.7 mg/dL (0.3-1.2); Total Protein 6.4 g/dL (6.2-8.2)
[2024-03-25 11:25] LABS: Glucose,Whole Blood 107 mg/dL (70-110)
--- NOTE | 2024-03-25 14:07 | P.PN ---
Subjective Progress Note Date: 03/24/24 Principal diagnosis: Reason for follow-up is left groin abscess Patient is a 33-year-old male with a past medical history significant for hypertension alcohol abuse/cirrhosis current everyday smoker presenting to the hospital initially for alcohol withdrawal symptoms subsequent developed a fever and has been diagnosed with a left scrotal abscess status post surgical drainage completed on 03/23/2024. On today's evaluation that is 03/24/2024,the patient did have resolution of his fever and denies any fever or any chills, patient is breathing comfortably on room air, the patient denies chest pain shortness of breath and no significant cough, patient still complaining of left groin area pain but no worsening. Patient white count is down to 10.77, creat is 1.3 cultures are pending Objective - Vital Signs Vital signs: Vital Signs Temp 97.5 F L 03/24/24 06:48 Pulse 83 03/24/24 06:48 Resp 17 03/24/24 06:48 BP 100/57 03/24/24 06:48 Pulse Ox 93 L 03/24/24 06:48 FiO2 Intake & Output 03/23/24 03/24/24 03/24/24 18:59 06:59 18:59 Weight 86.5 kg Other: Voiding Method Toilet # Voids 1 4 - Exam GENERAL DESCRIPTION: Middle-age y male lying in bed in no distress RESPIRATORY SYSTEM: Unlabored breathing , decreased breath sounds at bases HEART: S1 S2 regular rate and rhythm , ABDOMEN: Soft , no tenderness EXTREMITIES: No edema feet - Labs CBC & Chem 7: 03/24/24 03:42 03/24/24 03:42 Labs: Abnormal Lab Results - Last 24 Hours (Table) 03/23/24 03/23/24 03/23/24 Range/Units 03:24 03:24 13:45 WBC (4.50-10.00) X 10*3/uL RBC (4.40-5.60) X 10*6/uL Hgb (13.0-17.0) g/dL Hct (39.6-50.0) % MCV (80.0-97.0) FL MCH (27.0-32.0) pg Immature Gran # (0.00-0.04) X 10*3/uL Monocytes # (0.20-1.00) X 10*3/uL Sodium (135-145) mmol/L Carbon Dioxide (21.6-31.8) mmol/L Anion Gap (4.00-12.00) mmol/L Glucose (70-110) mg/dL POC Glucose (mg/dL) (70-110) mg/dL Calcium (8.7-10.3) mg/dL C-Reactive Protein 8.80 H (0.00-0.80) mg/dL Procalcitonin 4.33 H (0.02-0.50) ng/mL Urine Protein Trace H (Negative) Urine Glucose (UA) 4+ H (Negative) Urine Bilirubin 1+ H (Negative) Fluid Appearance (Clear) 03/23/24 03/23/24 03/23/24 Range/Units 14:00 16:22 20:33 WBC (4.50-10.00) X 10*3/uL RBC (4.40-5.60) X 10*6/uL Hgb (13.0-17.0) g/dL Hct (39.6-50.0) % MCV (80.0-97.0) FL MCH (27.0-32.0) pg Immature Gran # (0.00-0.04) X 10*3/uL Monocytes # (0.20-1.00) X 10*3/uL Sodium (135-145) mmol/L Carbon Dioxide (21.6-31.8) mmol/L Anion Gap (4.00-12.00) mmol/L Glucose (70-110) mg/dL POC Glucose (mg/dL) 172 H 173 H (70-110) mg/dL Calcium (8.7-10.3) mg/dL C-Reactive Protein (0.00-0.80) mg/dL Procalcitonin (0.02-0.50) ng/mL Urine Protein (Negative) Urine Glucose (UA) (Negative) Urine Bilirubin (Negative) Fluid Appearance Hazy A (Clear) 03/24/24 03/24/24 03/24/24 Range/Units 03:42 03:42 11:18 WBC 10.77 H (4.50-10.00) X 10*3/uL RBC 2.55 L (4.40-5.60) X 10*6/uL Hgb 9.2 L (13.0-17.0) g/dL Hct 28.5 L (39.6-50.0) % MCV 111.8 H (80.0-97.0) FL MCH 36.1 H (27.0-32.0) pg Immature Gran # 0.06 H (0.00-0.04) X 10*3/uL Monocytes # 1.34 H (0.20-1.00) X 10*3/uL Sodium 132 L (135-145) mmol/L Carbon Dioxide 19.2 L (21.6-31.8) mmol/L Anion Gap 12.80 H (4.00-12.00) mmol/L Glucose 115 H (70-110) mg/dL POC Glucose (mg/dL) 114 H (70-110) mg/dL Calcium 8.0 L (8.7-10.3) mg/dL C-Reactive Protein (0.00-0.80) mg/dL Procalcitonin (0.02-0.50) ng/mL Urine Protein (Negative) Urine Glucose (UA) (Negative) Urine Bilirubin (Negative) Fluid Appearance (Clear) Microbiology - Last 24 Hours (Table) 03/22/24 12:59 Blood Culture - Preliminary Blood 03/20/24 14:09 Blood Culture - Preliminary Blood Assessment and Plan (1) Sepsis Current Visit: Yes Status: Acute Code(s): A41.9 - SEPSIS, UNSPECIFIED ORGANISM SNOMED Code(s): 79873469 (2) Scrotal abscess Current Visit: Yes Status: Acute Code(s): N49.2 - INFLAMMATORY DISORDERS OF SCROTUM SNOMED Code(s): 09892279 Plan: 1patient with sepsis in this patient who did have a fever tachycardia elevated white count meeting criteria for skull source likely left scrotal abscess likely from gram-positive skin maldonado gram-negative infection not entirely excluded. 2patient is status post urology evaluation and surgical drainage and deep culture which are currently pending. 3patient did have improvement in his fever pattern white count started on, continue with Zosyn 3.375 g. Every 8 hour while waiting for the culture to finalize. Dictation was produced using [employer] dictation software. please excuse any grammatical, word or spelling errors. Time with Patient: Less than 30
--- NOTE | 2024-03-25 15:38 | P.PN ---
Subjective Progress Note Date: 03/25/24 CHIEF COMPLAINT: Hemorrhoids and rectal bleeding HISTORY OF PRESENT ILLNESS: The patient is a 33-year-old male with ETOH liver cirrhosis. He is status post paracentesis and I&D of the left groin. He reports no rectal bleeding from his bowel movement today. He is on laxative and has diarrhea. Reports groin pain from incision and drainage site to be expected. ROS: No reports of nausea and vomiting. No fevers or chills. No new chest pain. No productive sputum PHYSICAL EXAM: VITAL SIGNS: Reviewed CONSTITUTIONAL: Well developed and in no acute distress. EYES: Conjuctivae without sclera icterus. Extraocular movements grossly intact. HEAD, EARS, NOSE, THROAT: Moist buccal mucosa. Head is atraumatic, normocephalic. Hears conversational speech. No nasal drainage. RESPIRATORY: Non-labored respirations and equal bilateral excursions. CARDIOVASCULAR: Palpable 2+ radial pulses. ABDOMEN: Ascites with abdominal striae. MUSCULOSKELETAL: No gross deformity of the lower extremities noted. No clubbing. No cyanosis. SKIN: Good skin turgor. Well perfused. NEUROLOGIC: Cranial nerves II through XII grossly intact. No focal or lateralizing signs. PSYCH: Appropriate affect. Alert and oriented to person, place and time. CLINICAL LABS: Reviewed. WBC trending upward from 10+ to over 14+ ASSESSMENT: 1. Hemorrhoids and rectal bleeding. 2. Alcohol liver cirrhosis with ascites 3. Left groin abscess. PLAN: 1. He has no bleeding from his last bowel movement and continue with avoid straining and hard bowel movements 2. Sodium restriction and medical management for cirrhosis. Objective - Vital Signs Vital signs: Vital Signs Temp 98.0 F 03/25/24 13:40 Pulse 82 03/25/24 13:40 Resp 17 03/25/24 13:40 BP 94/54 03/25/24 13:40 Pulse Ox 97 03/25/24 13:40 FiO2 Intake & Output 03/24/24 03/25/24 03/25/24 18:59 06:59 18:59 Weight 87.5 kg Other: # Voids 2 4 # Bowel Movements 2 - Labs CBC & Chem 7: 03/25/24 04:49 03/25/24 04:49 Labs: Abnormal Lab Results - Last 24 Hours (Table) 03/24/24 03/25/24 03/25/24 Range/Units 16:19 04:49 04:49 WBC 14.32 H (4.50-10.00) X 10*3/uL RBC 2.81 L (4.40-5.60) X 10*6/uL Hgb 10.0 L (13.0-17.0) g/dL Hct 31.5 L (39.6-50.0) % MCV 112.1 H (80.0-97.0) FL MCH 35.6 H (27.0-32.0) pg MCHC 31.7 L (32.0-37.0) g/dL Immature Gran # 0.14 H (0.00-0.04) X 10*3/uL Neutrophils # 10.38 H (1.80-7.70) X 10*3/uL Monocytes # 1.44 H (0.20-1.00) X 10*3/uL NRBC/100 WBC Diff 0.02 H (0.00-0.01) X 10*3/uL Macrocytosis (manual) 2+ A Sodium 132 L (135-145) mmol/L Carbon Dioxide 20.9 L (21.6-31.8) mmol/L POC Glucose (mg/dL) 121 H (70-110) mg/dL Calcium 8.5 L (8.7-10.3) mg/dL Total Bilirubin 3.7 H (0.3-1.2) mg/dL Conjugated Bilirubin 2.84 H (0.20-0.40) mg/dL AST 89 H (14-35) U/L Alkaline Phosphatase 298 H (41-126) U/L Albumin 3.0 L (3.8-4.9) g/dL Globulin 3.4 H (1.6-3.3) g/dL Albumin/Globulin Ratio 0.88 L (1.60-3.17) Ratio Microbiology - Last 24 Hours (Table) 03/23/24 18:15 Gram Stain - Preliminary Groin Wound Culture - Preliminary 03/23/24 14:00 Gram Stain - Preliminary Ascites Fluid Body Fluid Culture - Preliminary 03/22/24 12:59 Blood Culture - Preliminary Blood
--- NOTE | 2024-03-25 16:21 | P.PN ---
Subjective This is a pleasant 33 years old male with past medical history of multiple medical problems including alcohol liver cirrhosis and stigma. Presents for signs symptoms of alcohol withdrawal and left groin cellulitis and abscess. He was started on antibiotics Zosyn. He was evaluated by urologist s/p I&D yesterday. Today's postop day #1. He still complains from a bleeding per rectum secondary to hemorrhoids and he was evaluated by general surgery team with no need for surgical intervention. He still complains from pain in his left groin wound and rectum about 9/10 this morning however patient looks calm. No abdominal pain or distention and abdominal looks soft. No chest pain or dyspnea No significant signs symptoms of alcohol withdrawal Patient also evaluated by GI team however they signed off yesterday as they are not available this weekend and this coming week in this facility. Blood pressure is borderline 100/57 He had fever 101.3 but no fever today. Mildly tachycardic INR 1.7 Leukocytosis improving 13 down to 10.7, hemoglobin slightly less 9.8 down to 9.2 Liver enzymes and bilirubin are elevated but ALT is within the reference range Procalcitonin is elevated 4.3 as well as CRP at 8.7 Urine analysis is negative Hemoglobin A1c is elevated at 9.9 CT of the abdomen pelvis without contrast showing hepatomegaly and splenomegaly with gallbladder surgically absent Scrotal ultrasound showing possible abscess 1.6 x 1.7 cm Echocardiogram showing ejection fraction 55 to 60% 03/25 Overall feels fine Left scrotal wound is healing, pain controlled Wound culture is pending Remains on Zosyn No bleeding per rectum per surgery team Objective - Vital Signs Vital signs: Vital Signs Temp 98.2 F 03/25/24 07:17 Pulse 80 03/25/24 07:17 Resp 18 03/25/24 07:17 BP 105/60 03/25/24 07:17 Pulse Ox 96 03/25/24 07:17 FiO2 Intake & Output 03/24/24 03/25/24 03/25/24 18:59 06:59 18:59 Weight 87.5 kg Other: # Voids 2 4 # Bowel Movements 2 - Exam GENERAL: The patient is alert and oriented x3, not in any acute distress. Well developed, well nourished. HEENT: Pupils are round and equally reacting to light. EOMI. No scleral icterus. No conjunctival pallor. Normocephalic, atraumatic. No pharyngeal erythema. No thyromegaly. CARDIOVASCULAR: S1 and S2 present. No murmurs, rubs, or gallops. PULMONARY: Chest is clear to auscultation, no wheezing , no crackles. -ABDOMEN: Soft, nontender, nondistended, normoactive bowel sounds. No palpable organomegaly. Left groin/scrotal wound with wound weak in place, cellulitis surrounding is significantly improving MUSCULOSKELETAL: No joint swelling or deformity. EXTREMITIES: No cyanosis, clubbing, or pedal edema. NEUROLOGICAL: Gross neurological examination did not reveal any focal deficits. SKIN: No rashes. no petechiae. - Labs CBC & Chem 7: 03/25/24 04:49 03/25/24 04:49 Labs: Abnormal Lab Results - Last 24 Hours (Table) 03/24/24 03/24/24 Range/Units 11:18 16:19 POC Glucose (mg/dL) 114 H 121 H (70-110) mg/dL Microbiology - Last 24 Hours (Table) 03/23/24 18:15 Gram Stain - Preliminary Groin Wound Culture - Preliminary 03/23/24 14:00 Gram Stain - Preliminary Ascites Fluid Body Fluid Culture - Preliminary 03/22/24 12:59 Blood Culture - Preliminary Blood Assessment and Plan Assessment: Left scrotal abscess and left groin cellulitis status post I&D of his left scrotal abscess on 03/24 Alcohol withdrawal and alcohol use disorder Bleeding per rectum secondary to hemorrhoids Alcoholic liver cirrhosis Elevated ammonia with no evidence of hepatic encephalopathy mild alcoholic transaminitis and jaundice Plan: Continue with antibiotic Zosyn Follow-up wound culture and blood culture Infectious disease and urologist on the case GI service signing off for his alcoholic liver disease and other medical problems General surgical team following closely Continue with CIWA protocol and thiamine Continue with insulin and close monitoring of glucose Labs and medication were reviewed.. Continue same treatment. Continue with symptomatic treatment. Resume home medication. Monitor labs and vitals. DVT and GI prophylaxis. Further recommendations as per clinical course of the patient DVT prophylaxis: Subcutaneous heparin GI Prophylaxis: Pepcid Prognosis is guarded
--- NOTE | 2024-03-25 16:31 | P.PN ---
Subjective Progress Note Date: 03/25/24 Principal diagnosis: Reason for follow-up is left groin abscess Patient is a 33-year-old male with a past medical history significant for hypertension alcohol abuse/cirrhosis current everyday smoker presenting to the hospital initially for alcohol withdrawal symptoms subsequent developed a fever and has been diagnosed with a left scrotal abscess status post surgical drainage completed on 03/23/2024. On today's evaluation that is 03/25/2024,the patient remains to be afebrile, patient is on room air not requiring supplemental oxygen and denies any shortness of breath no chest pain or cough.Patient denies having any nausea or vomiting, no abdominal pain and no diarrhea still complaining of pain to the left scrotal area but no further drainage. Patient white count is 14.32, creat is 1.0 cultures are still pending Objective - Vital Signs Vital signs: Vital Signs Temp 98.2 F 03/25/24 07:17 Pulse 80 03/25/24 07:17 Resp 18 03/25/24 07:17 BP 105/60 03/25/24 07:17 Pulse Ox 96 03/25/24 07:17 FiO2 Intake & Output 03/24/24 03/25/24 03/25/24 18:59 06:59 18:59 Weight 87.5 kg Other: # Voids 2 4 # Bowel Movements 2 - Exam GENERAL DESCRIPTION: Middle-age y male lying in bed in no distress RESPIRATORY SYSTEM: Unlabored breathing , decreased breath sounds at bases HEART: S1 S2 regular rate and rhythm , ABDOMEN: Soft , no tenderness EXTREMITIES: No edema feet - Labs CBC & Chem 7: 03/25/24 04:49 03/25/24 04:49 Labs: Abnormal Lab Results - Last 24 Hours (Table) 03/24/24 03/25/24 03/25/24 Range/Units 16:19 04:49 04:49 WBC 14.32 H (4.50-10.00) X 10*3/uL RBC 2.81 L (4.40-5.60) X 10*6/uL Hgb 10.0 L (13.0-17.0) g/dL Hct 31.5 L (39.6-50.0) % MCV 112.1 H (80.0-97.0) FL MCH 35.6 H (27.0-32.0) pg MCHC 31.7 L (32.0-37.0) g/dL Immature Gran # 0.14 H (0.00-0.04) X 10*3/uL Neutrophils # 10.38 H (1.80-7.70) X 10*3/uL Monocytes # 1.44 H (0.20-1.00) X 10*3/uL NRBC/100 WBC Diff 0.02 H (0.00-0.01) X 10*3/uL Macrocytosis (manual) 2+ A Sodium 132 L (135-145) mmol/L Carbon Dioxide 20.9 L (21.6-31.8) mmol/L POC Glucose (mg/dL) 121 H (70-110) mg/dL Calcium 8.5 L (8.7-10.3) mg/dL Total Bilirubin 3.7 H (0.3-1.2) mg/dL Conjugated Bilirubin 2.84 H (0.20-0.40) mg/dL AST 89 H (14-35) U/L Alkaline Phosphatase 298 H (41-126) U/L Albumin 3.0 L (3.8-4.9) g/dL Globulin 3.4 H (1.6-3.3) g/dL Albumin/Globulin Ratio 0.88 L (1.60-3.17) Ratio Microbiology - Last 24 Hours (Table) 03/23/24 18:15 Gram Stain - Preliminary Groin Wound Culture - Preliminary 03/23/24 14:00 Gram Stain - Preliminary Ascites Fluid Body Fluid Culture - Preliminary 03/22/24 12:59 Blood Culture - Preliminary Blood Assessment and Plan (1) Sepsis Current Visit: Yes Status: Acute Code(s): A41.9 - SEPSIS, UNSPECIFIED ORGANISM SNOMED Code(s): 53213090 (2) Scrotal abscess Current Visit: Yes Status: Acute Code(s): N49.2 - INFLAMMATORY DISORDERS OF SCROTUM SNOMED Code(s): 25859720 Plan: 1patient with sepsis in this patient who did have a fever tachycardia elevated white count meeting criteria for skull source likely left scrotal abscess likely from gram-positive skin maldonado gram-negative infection not entirely excluded. 2patient is status post urology evaluation and surgical drainage and deep culture which are currently pending. 3patient did have improvement in his fever pattern white count slightly elevated will be monitored closely waiting for the culture continue Zosyn Dictation was produced using [employer] dictation software. please excuse any grammatical, word or spelling errors. Time with Patient: Less than 30
[2024-03-25 16:35] LABS: Glucose,Whole Blood 98 mg/dL (70-110)
--- NOTE | 2024-03-25 20:56 | P.PN ---
Subjective Progress Note Date: 03/25/24 Principal diagnosis: Scrotal abscess The patient underwent I&D of a left scrotal abscess on March 23, 2024. He reports mild scrotal discomfort but states that the swelling has resolved. He has been afebrile since the I&D. Cultures are pending. He continues to receive Zosyn. Objective - Vital Signs Vital signs: Vital Signs Temp 98.0 F 03/25/24 13:40 Pulse 82 03/25/24 13:40 Resp 17 03/25/24 13:40 BP 94/54 03/25/24 13:40 Pulse Ox 97 03/25/24 13:40 FiO2 Intake & Output 03/25/24 03/25/24 03/26/24 06:59 18:59 06:59 Weight 87.5 kg Other: # Voids 4 4 # Bowel Movements 2 1 - Constitutional General appearance: Present: average body habitus, cooperative, no acute distress - Genitourinary Genitourinary Comment(s): Normal phallus. Normal testes. Left scrotal wound is clean, without evidence of erythema, edema, fluctuance, or purulence. - Psychiatric Psychiatric: Present: A&O x's 3 - Labs CBC & Chem 7: 03/25/24 04:49 03/25/24 04:49 Labs: Abnormal Lab Results - Last 24 Hours (Table) 03/25/24 03/25/24 Range/Units 04:49 04:49 WBC 14.32 H (4.50-10.00) X 10*3/uL RBC 2.81 L (4.40-5.60) X 10*6/uL Hgb 10.0 L (13.0-17.0) g/dL Hct 31.5 L (39.6-50.0) % MCV 112.1 H (80.0-97.0) FL MCH 35.6 H (27.0-32.0) pg MCHC 31.7 L (32.0-37.0) g/dL Immature Gran # 0.14 H (0.00-0.04) X 10*3/uL Neutrophils # 10.38 H (1.80-7.70) X 10*3/uL Monocytes # 1.44 H (0.20-1.00) X 10*3/uL NRBC/100 WBC Diff 0.02 H (0.00-0.01) X 10*3/uL Macrocytosis (manual) 2+ A Sodium 132 L (135-145) mmol/L Carbon Dioxide 20.9 L (21.6-31.8) mmol/L Calcium 8.5 L (8.7-10.3) mg/dL Total Bilirubin 3.7 H (0.3-1.2) mg/dL Conjugated Bilirubin 2.84 H (0.20-0.40) mg/dL AST 89 H (14-35) U/L Alkaline Phosphatase 298 H (41-126) U/L Albumin 3.0 L (3.8-4.9) g/dL Globulin 3.4 H (1.6-3.3) g/dL Albumin/Globulin Ratio 0.88 L (1.60-3.17) Ratio Microbiology - Last 24 Hours (Table) 03/23/24 18:15 Gram Stain - Preliminary Groin Wound Culture - Preliminary 03/23/24 14:00 Gram Stain - Preliminary Ascites Fluid Body Fluid Culture - Preliminary 03/22/24 12:59 Blood Culture - Preliminary Blood Assessment and Plan (1) Scrotal wall abscess Current Visit: Yes Status: Acute Code(s): N49.2 - INFLAMMATORY DISORDERS OF SCROTUM SNOMED Code(s): 42900496 Plan: - Continue local wound care (packing the wound twice daily with iodoform gauze). - Await aerobic and anaerobic culture results. - Continue Zosyn in the meantime.
[2024-03-25 21:23] LABS: Glucose,Whole Blood 85 mg/dL (70-110)
[2024-03-26 06:48] LABS: Glucose,Whole Blood 159 mg/dL (70-110)
[2024-03-26 08:34] LABS: Basophils # (A) 0.07 X 10*3/uL (0.00-0.10); Basophils % (A) 0.5 %; Eosinophils # (A) 0.26 X 10*3/uL (0.04-0.35); HCT 33.4 % (39.6-50.0); HGB 10.7 g/dL (13.0-17.0); Lymphocytes # (A) 1.95 X 10*3/uL (0.90-5.00); Lymphocytes % (A) 14.8 %; MCH 36.1 pg (27.0-32.0); MCV 112.8 FL (80.0-97.0); Mean Platelet Volume 11.5 FL (9.5-12.2); Monocytes # (A) 1.18 X 10*3/uL (0.20-1.00); Monocytes % (A) 8.9 %; NRBC Per 100 WBC 0 X 10*3/uL (0.00-0.01); Neutrophils # (A) 9.57 X 10*3/uL (1.80-7.70); Neutrophils % (A) 72.5 %; Platelet Count 225 X 10*3/uL (140-440); RBC 2.96 X 10*6/uL (4.40-5.60); RDW 13.7 % (11.5-14.5)
--- NOTE | 2024-03-26 09:33 | P.PN ---
Subjective This is a pleasant 33 years old male with past medical history of multiple medical problems including alcohol liver cirrhosis and stigma. Presents for signs symptoms of alcohol withdrawal and left groin cellulitis and abscess. He was started on antibiotics Zosyn. He was evaluated by urologist s/p I&D yesterday. Today's postop day #1. He still complains from a bleeding per rectum secondary to hemorrhoids and he was evaluated by general surgery team with no need for surgical intervention. He still complains from pain in his left groin wound and rectum about 9/10 this morning however patient looks calm. No abdominal pain or distention and abdominal looks soft. No chest pain or dyspnea No significant signs symptoms of alcohol withdrawal Patient also evaluated by GI team however they signed off yesterday as they are not available this weekend and this coming week in this facility. Blood pressure is borderline 100/57 He had fever 101.3 but no fever today. Mildly tachycardic INR 1.7 Leukocytosis improving 13 down to 10.7, hemoglobin slightly less 9.8 down to 9.2 Liver enzymes and bilirubin are elevated but ALT is within the reference range Procalcitonin is elevated 4.3 as well as CRP at 8.7 Urine analysis is negative Hemoglobin A1c is elevated at 9.9 CT of the abdomen pelvis without contrast showing hepatomegaly and splenomegaly with gallbladder surgically absent Scrotal ultrasound showing possible abscess 1.6 x 1.7 cm Echocardiogram showing ejection fraction 55 to 60% 03/25 Overall feels fine Left scrotal wound is healing, pain controlled Wound culture is pending Remains on Zosyn No bleeding per rectum per surgery team 03/26 Left scrotal wound is healing, wound packing in place, he still complaining from some pain. Wound culture and blood culture pending, currently on Zosyn He still has some watering and some little bleeding from rectum secondary to his hemorrhoids. Surgery team are following closely and recommended no surgical intervention currently Patient with no overt symptoms of withdrawal currently. His mentation at baseline. Objective - Vital Signs Vital signs: Vital Signs Temp 98.2 F 03/26/24 06:45 Pulse 74 03/26/24 06:45 Resp 17 03/26/24 06:45 BP 103/58 03/26/24 06:45 Pulse Ox 100 03/26/24 06:45 FiO2 Intake & Output 03/25/24 03/26/24 03/26/24 18:59 06:59 18:59 Weight 87.5 kg Other: Voiding Method Toilet # Voids 4 3 # Bowel Movements 1 1 - Exam GENERAL: The patient is alert and oriented x3, not in any acute distress. Well developed, well nourished. HEENT: Pupils are round and equally reacting to light. EOMI. No scleral icterus. No conjunctival pallor. Normocephalic, atraumatic. No pharyngeal erythema. No thyromegaly. CARDIOVASCULAR: S1 and S2 present. No murmurs, rubs, or gallops. PULMONARY: Chest is clear to auscultation, no wheezing , no crackles. -ABDOMEN: Soft, nontender, nondistended, normoactive bowel sounds. No palpable organomegaly. Left groin/scrotal wound with wound weak in place, cellulitis surrounding is significantly improving MUSCULOSKELETAL: No joint swelling or deformity. EXTREMITIES: No cyanosis, clubbing, or pedal edema. NEUROLOGICAL: Gross neurological examination did not reveal any focal deficits. SKIN: No rashes. no petechiae. - Labs CBC & Chem 7: 03/26/24 03:37 03/25/24 04:49 Labs: Abnormal Lab Results - Last 24 Hours (Table) 03/25/24 03/25/24 03/26/24 Range/Units 04:49 04:49 03:37 WBC 14.32 H 13.20 H (4.50-10.00) X 10*3/uL RBC 2.81 L 2.96 L (4.40-5.60) X 10*6/uL Hgb 10.0 L 10.7 L (13.0-17.0) g/dL Hct 31.5 L 33.4 L (39.6-50.0) % MCV 112.1 H 112.8 H (80.0-97.0) FL MCH 35.6 H 36.1 H (27.0-32.0) pg MCHC 31.7 L (32.0-37.0) g/dL Immature Gran # 0.14 H 0.17 H (0.00-0.04) X 10*3/uL Neutrophils # 10.38 H 9.57 H (1.80-7.70) X 10*3/uL Monocytes # 1.44 H 1.18 H (0.20-1.00) X 10*3/uL NRBC/100 WBC Diff 0.02 H (0.00-0.01) X 10*3/uL Macrocytosis (manual) 2+ A Sodium 132 L (135-145) mmol/L Carbon Dioxide 20.9 L (21.6-31.8) mmol/L POC Glucose (mg/dL) (70-110) mg/dL Calcium 8.5 L (8.7-10.3) mg/dL Total Bilirubin 3.7 H (0.3-1.2) mg/dL Conjugated Bilirubin 2.84 H (0.20-0.40) mg/dL AST 89 H (14-35) U/L Alkaline Phosphatase 298 H (41-126) U/L Albumin 3.0 L (3.8-4.9) g/dL Globulin 3.4 H (1.6-3.3) g/dL Albumin/Globulin Ratio 0.88 L (1.60-3.17) Ratio 03/26/24 Range/Units 06:47 WBC (4.50-10.00) X 10*3/uL RBC (4.40-5.60) X 10*6/uL Hgb (13.0-17.0) g/dL Hct (39.6-50.0) % MCV (80.0-97.0) FL MCH (27.0-32.0) pg MCHC (32.0-37.0) g/dL Immature Gran # (0.00-0.04) X 10*3/uL Neutrophils # (1.80-7.70) X 10*3/uL Monocytes # (0.20-1.00) X 10*3/uL NRBC/100 WBC Diff (0.00-0.01) X 10*3/uL Macrocytosis (manual) Sodium (135-145) mmol/L Carbon Dioxide (21.6-31.8) mmol/L POC Glucose (mg/dL) 159 H (70-110) mg/dL Calcium (8.7-10.3) mg/dL Total Bilirubin (0.3-1.2) mg/dL Conjugated Bilirubin (0.20-0.40) mg/dL AST (14-35) U/L Alkaline Phosphatase (41-126) U/L Albumin (3.8-4.9) g/dL Globulin (1.6-3.3) g/dL Albumin/Globulin Ratio (1.60-3.17) Ratio Microbiology - Last 24 Hours (Table) 03/23/24 14:00 Gram Stain - Preliminary Ascites Fluid Body Fluid Culture - Preliminary 03/22/24 12:59 Blood Culture - Preliminary Blood 03/20/24 14:09 Blood Culture - Final Blood 03/23/24 18:15 Gram Stain - Preliminary Groin Wound Culture - Preliminary Assessment and Plan Assessment: Left scrotal abscess and left groin cellulitis status post I&D of his left scrotal abscess on 03/24 Alcohol withdrawal and alcohol use disorder Bleeding per rectum secondary to hemorrhoids Alcoholic liver cirrhosis Elevated ammonia with no evidence of hepatic encephalopathy mild alcoholic transaminitis and jaundice Plan: Continue with antibiotic Zosyn Follow-up wound culture and blood culture Infectious disease and urologist on the case GI service signing off for his alcoholic liver disease and other medical problems General surgical team following closely Continue with CIWA protocol and thiamine Continue with insulin and close monitoring of glucose Labs and medication were reviewed.. Continue same treatment. Continue with symptomatic treatment. Resume home medication. Monitor labs and vitals. DVT and GI prophylaxis. Further recommendations as per clinical course of the patient DVT prophylaxis: Subcutaneous heparin GI Prophylaxis: Pepcid Prognosis is guarded
[2024-03-26 10:03] LABS: BUN/Creat Ratio 11.78 Ratio (12.00-20.00); Blood Urea Nitrogen 10.6 mg/dL (9.0-27.0); Calcium 8.5 mg/dL (8.7-10.3); Chloride 100 mmol/L (96-109); Glucose 92 mg/dL (70-110); Potassium 4.7 mmol/L (3.5-5.5); Sodium 133 mmol/L (135-145)
[2024-03-26 11:27] LABS: Glucose,Whole Blood 110 mg/dL (70-110)
--- NOTE | 2024-03-26 11:36 | P.PN ---
Subjective Progress Note Date: 03/26/24 CHIEF COMPLAINT: Alcohol withdrawal HISTORY OF PRESENT ILLNESS: Patient status post I&D of a left scrotal abscess. Patient reports that he still has pain. Pain is worse with changing of the packing. He is having bowel movements he had 2 bowel movements with blood and 2 bowel movements without blood from the hemorrhoids yesterday. Hemoglobin stable at 10.7 WBC is down from 14-13 PHYSICAL EXAM: VITAL SIGNS: Reviewed GENERAL: Jaundiced. Well-developed in no acute distress. HEENT: Scleral icterus present. Extraocular movements grossly intact. Moist buccal mucosa. Head is atraumatic, normocephalic. Hears conversational speech. No nasal drainage. NECK: Supple without lymphadenopathy. CHEST: Non-labored respirations and equal bilateral excursions. CARDIOVASCULAR: Palpable 2+ radial pulses. ABDOMEN: Distended. Nontender. Reducible umbilical hernia. MUSCULOSKELETAL: No clubbing or cyanosis. NEUROLOGIC: No focal or lateralizing signs. Cranial nerves II through XII grossly intact. PSYCH: Appropriate affect. Alert and oriented to person, place and time. ASSESSMENT: 1. Hemorrhoids and rectal bleeding. 2. Alcohol liver cirrhosis with ascites 3. Left scrotal abscess status post I&D PLAN: -No surgical intervention planned at this time -Continue supportive care for the hemorrhoids -Continue medical management liver cirrhosis Physician Oracle Programmer Analyst note has been reviewed by physician. Signing provider agrees with the documented findings, assessment, and plan of care. Objective - Vital Signs Vital signs: Vital Signs Temp 98.2 F 03/26/24 06:45 Pulse 74 03/26/24 08:57 Resp 17 03/26/24 08:57 BP 103/58 03/26/24 06:45 Pulse Ox 100 03/26/24 06:45 FiO2 Intake & Output 03/25/24 03/26/24 03/26/24 18:59 06:59 18:59 Weight 87.5 kg Other: Voiding Method Toilet Toilet # Voids 4 3 # Bowel Movements 1 1 - Labs CBC & Chem 7: 03/26/24 03:37 03/26/24 03:37 Labs: Abnormal Lab Results - Last 24 Hours (Table) 03/26/24 03/26/24 03/26/24 Range/Units 03:37 03:37 06:47 WBC 13.20 H (4.50-10.00) X 10*3/uL RBC 2.96 L (4.40-5.60) X 10*6/uL Hgb 10.7 L (13.0-17.0) g/dL Hct 33.4 L (39.6-50.0) % MCV 112.8 H (80.0-97.0) FL MCH 36.1 H (27.0-32.0) pg Immature Gran # 0.17 H (0.00-0.04) X 10*3/uL Neutrophils # 9.57 H (1.80-7.70) X 10*3/uL Monocytes # 1.18 H (0.20-1.00) X 10*3/uL Sodium 133 L (135-145) mmol/L Carbon Dioxide 21.0 L (21.6-31.8) mmol/L BUN/Creatinine Ratio 11.78 L (12.00-20.00) Ratio POC Glucose (mg/dL) 159 H (70-110) mg/dL Calcium 8.5 L (8.7-10.3) mg/dL Microbiology - Last 24 Hours (Table) 03/23/24 18:15 Gram Stain - Final Groin Wound Culture - Final 03/23/24 14:00 Gram Stain - Preliminary Ascites Fluid Body Fluid Culture - Preliminary 03/22/24 12:59 Blood Culture - Preliminary Blood 03/20/24 14:09 Blood Culture - Final Blood
[2024-03-26 16:35] LABS: Glucose,Whole Blood 124 mg/dL (70-110)
[2024-03-26 19:57] LABS: Glucose,Whole Blood 141 mg/dL (70-110)
[2024-03-27 06:36] LABS: Glucose,Whole Blood 107 mg/dL (70-110)
--- NOTE | 2024-03-27 07:55 | P.PN ---
Subjective Progress Note Date: 03/27/24 The patient is in the hospital with etoh withdrawal. He had a scrotal abscess drained by Dr Arango.. He is feeling better Objective - Vital Signs Vital signs: Vital Signs Temp 97.9 F 03/27/24 01:24 Pulse 76 03/27/24 01:24 Resp 15 03/27/24 01:24 BP 107/68 03/27/24 01:24 Pulse Ox 98 03/27/24 01:24 FiO2 Intake & Output 03/26/24 03/27/24 03/27/24 18:59 06:59 18:59 Weight 85.8 kg Other: Voiding Method Toilet Toilet # Voids 3 6 - Genitourinary Genitourinary Comment(s): scrotal abscess drained with packing. Inflammation is gone - Labs CBC & Chem 7: 03/26/24 03:37 03/26/24 03:37 Labs: Abnormal Lab Results - Last 24 Hours (Table) 03/26/24 03/26/24 03/26/24 Range/Units 03:37 03:37 16:33 WBC 13.20 H (4.50-10.00) X 10*3/uL RBC 2.96 L (4.40-5.60) X 10*6/uL Hgb 10.7 L (13.0-17.0) g/dL Hct 33.4 L (39.6-50.0) % MCV 112.8 H (80.0-97.0) FL MCH 36.1 H (27.0-32.0) pg Immature Gran # 0.17 H (0.00-0.04) X 10*3/uL Neutrophils # 9.57 H (1.80-7.70) X 10*3/uL Monocytes # 1.18 H (0.20-1.00) X 10*3/uL Sodium 133 L (135-145) mmol/L Carbon Dioxide 21.0 L (21.6-31.8) mmol/L BUN/Creatinine Ratio 11.78 L (12.00-20.00) Ratio POC Glucose (mg/dL) 124 H (70-110) mg/dL Calcium 8.5 L (8.7-10.3) mg/dL 03/26/24 Range/Units 19:55 WBC (4.50-10.00) X 10*3/uL RBC (4.40-5.60) X 10*6/uL Hgb (13.0-17.0) g/dL Hct (39.6-50.0) % MCV (80.0-97.0) FL MCH (27.0-32.0) pg Immature Gran # (0.00-0.04) X 10*3/uL Neutrophils # (1.80-7.70) X 10*3/uL Monocytes # (0.20-1.00) X 10*3/uL Sodium (135-145) mmol/L Carbon Dioxide (21.6-31.8) mmol/L BUN/Creatinine Ratio (12.00-20.00) Ratio POC Glucose (mg/dL) 141 H (70-110) mg/dL Calcium (8.7-10.3) mg/dL Microbiology - Last 24 Hours (Table) 03/23/24 14:00 Anaerobic Culture - Preliminary Ascites Fluid 03/23/24 18:15 Gram Stain - Final Groin Wound Culture - Final 03/23/24 14:00 Gram Stain - Preliminary Ascites Fluid Body Fluid Culture - Preliminary Assessment and Plan Assessment: Impression: scrotal abscess drained and improving Recommendations: c/w dressing changes
[2024-03-27 09:27] LABS: Basophils # (A) 0.12 X 10*3/uL (0.00-0.10); Basophils % (A) 1.1 %; Eosinophils # (A) 0.25 X 10*3/uL (0.04-0.35); Eosinophils % (A) 2.3 %; Lymphocytes # (A) 1.83 X 10*3/uL (0.90-5.00); Lymphocytes % (A) 17.1 %; MCH 35.6 pg (27.0-32.0); MCHC 31.6 g/dL (32.0-37.0); MCV 112.8 FL (80.0-97.0); Mean Platelet Volume 11.5 FL (9.5-12.2); Monocytes # (A) 0.58 X 10*3/uL (0.20-1.00); Monocytes % (A) 5.4 %; NRBC Per 100 WBC 0.02 X 10*3/uL (0.00-0.01); Neutrophils # (A) 7.64 X 10*3/uL (1.80-7.70); Neutrophils % (A) 71.4 %; Platelet Count 248 X 10*3/uL (140-440); RBC 3.37 X 10*6/uL (4.40-5.60); RDW 13.8 % (11.5-14.5); WBC 10.71 X 10*3/uL (4.50-10.00)
--- NOTE | 2024-03-27 10:03 | P.PN ---
Subjective This is a pleasant 33 years old male with past medical history of multiple medical problems including alcohol liver cirrhosis and stigma. Presents for signs symptoms of alcohol withdrawal and left groin cellulitis and abscess. He was started on antibiotics Zosyn. He was evaluated by urologist s/p I&D yesterday. Today's postop day #1. He still complains from a bleeding per rectum secondary to hemorrhoids and he was evaluated by general surgery team with no need for surgical intervention. He still complains from pain in his left groin wound and rectum about 9/10 this morning however patient looks calm. No abdominal pain or distention and abdominal looks soft. No chest pain or dyspnea No significant signs symptoms of alcohol withdrawal Patient also evaluated by GI team however they signed off yesterday as they are not available this weekend and this coming week in this facility. Blood pressure is borderline 100/57 He had fever 101.3 but no fever today. Mildly tachycardic INR 1.7 Leukocytosis improving 13 down to 10.7, hemoglobin slightly less 9.8 down to 9.2 Liver enzymes and bilirubin are elevated but ALT is within the reference range Procalcitonin is elevated 4.3 as well as CRP at 8.7 Urine analysis is negative Hemoglobin A1c is elevated at 9.9 CT of the abdomen pelvis without contrast showing hepatomegaly and splenomegaly with gallbladder surgically absent Scrotal ultrasound showing possible abscess 1.6 x 1.7 cm Echocardiogram showing ejection fraction 55 to 60% 03/25 Overall feels fine Left scrotal wound is healing, pain controlled Wound culture is pending Remains on Zosyn No bleeding per rectum per surgery team 03/26 Left scrotal wound is healing, wound packing in place, he still complaining from some pain. Wound culture and blood culture pending, currently on Zosyn He still has some watering and some little bleeding from rectum secondary to his hemorrhoids. Surgery team are following closely and recommended no surgical intervention currently Patient with no overt symptoms of withdrawal currently. His mentation at baseline. 03/27 wound keep healing still on iv antibiotics for now no other new complaints pain controlled this morning Objective - Vital Signs Vital signs: Vital Signs Temp 99.1 F 03/27/24 08:00 Pulse 80 03/27/24 08:00 Resp 16 03/27/24 08:00 BP 103/60 03/27/24 08:00 Pulse Ox 97 03/27/24 08:00 FiO2 Intake & Output 10/14/24 10/15/24 10/15/24 18:59 06:59 18:59 Intake Total 240 Balance 240 Weight 85.8 kg Intake: Oral 240 Other: Voiding Method Toilet Toilet # Voids 3 6 - Exam GENERAL: The patient is alert and oriented x3, not in any acute distress. Well developed, well nourished. HEENT: Pupils are round and equally reacting to light. EOMI. No scleral icterus. No conjunctival pallor. Normocephalic, atraumatic. No pharyngeal erythema. No thyromegaly. CARDIOVASCULAR: S1 and S2 present. No murmurs, rubs, or gallops. PULMONARY: Chest is clear to auscultation, no wheezing , no crackles. -ABDOMEN: Soft, nontender, nondistended, normoactive bowel sounds. No palpable organomegaly. Left groin/scrotal wound with wound weak in place, cellulitis surrounding is significantly improving MUSCULOSKELETAL: No joint swelling or deformity. EXTREMITIES: No cyanosis, clubbing, or pedal edema. NEUROLOGICAL: Gross neurological examination did not reveal any focal deficits. SKIN: No rashes. no petechiae. - Labs CBC & Chem 7: 03/27/24 03:42 03/26/24 03:37 Labs: Abnormal Lab Results - Last 24 Hours (Table) 03/26/24 03/26/24 03/26/24 Range/Units 03:37 16:33 19:55 WBC (4.50-10.00) X 10*3/uL RBC (4.40-5.60) X 10*6/uL Hgb (13.0-17.0) g/dL Hct (39.6-50.0) % MCV (80.0-97.0) FL MCH (27.0-32.0) pg MCHC (32.0-37.0) g/dL Immature Gran # (0.00-0.04) X 10*3/uL Basophils # (0.00-0.10) X 10*3/uL NRBC/100 WBC Diff (0.00-0.01) X 10*3/uL Sodium 133 L (135-145) mmol/L Carbon Dioxide 21.0 L (21.6-31.8) mmol/L BUN/Creatinine Ratio 11.78 L (12.00-20.00) Ratio POC Glucose (mg/dL) 124 H 141 H (70-110) mg/dL Calcium 8.5 L (8.7-10.3) mg/dL 03/27/24 Range/Units 03:42 WBC 10.71 H (4.50-10.00) X 10*3/uL RBC 3.37 L (4.40-5.60) X 10*6/uL Hgb 12.0 L (13.0-17.0) g/dL Hct 38.0 L (39.6-50.0) % MCV 112.8 H (80.0-97.0) FL MCH 35.6 H (27.0-32.0) pg MCHC 31.6 L (32.0-37.0) g/dL Immature Gran # 0.29 H (0.00-0.04) X 10*3/uL Basophils # 0.12 H (0.00-0.10) X 10*3/uL NRBC/100 WBC Diff 0.02 H (0.00-0.01) X 10*3/uL Sodium (135-145) mmol/L Carbon Dioxide (21.6-31.8) mmol/L BUN/Creatinine Ratio (12.00-20.00) Ratio POC Glucose (mg/dL) (70-110) mg/dL Calcium (8.7-10.3) mg/dL Microbiology - Last 24 Hours (Table) 03/23/24 14:00 Gram Stain - Preliminary Ascites Fluid Body Fluid Culture - Preliminary 03/23/24 14:00 Anaerobic Culture - Preliminary Ascites Fluid 03/23/24 18:15 Gram Stain - Final Groin Wound Culture - Final Assessment and Plan Assessment: Left scrotal abscess and left groin cellulitis status post I&D of his left scrotal abscess on 03/24 Alcohol withdrawal and alcohol use disorder Bleeding per rectum secondary to hemorrhoids Alcoholic liver cirrhosis Elevated ammonia with no evidence of hepatic encephalopathy mild alcoholic transaminitis and jaundice Plan: Continue with antibiotic Zosyn Follow-up wound culture and blood culture Infectious disease and urologist on the case GI service signing off for his alcoholic liver disease and other medical problems General surgical team following closely Continue with CIWA protocol and thiamine Continue with insulin and close monitoring of glucose Labs and medication were reviewed.. Continue same treatment. Continue with symptomatic treatment. Resume home medication. Monitor labs and vitals. DVT and GI prophylaxis. Further recommendations as per clinical course of the patient DVT prophylaxis: Subcutaneous heparin GI Prophylaxis: Pepcid Prognosis is guarded
[2024-03-27 11:53] LABS: ALT 45 U/L (10-49); AST 134 U/L (14-35); Albumin 3.3 g/dL (3.8-4.9); Albumin/Globulin Ratio 0.89 Ratio (1.60-3.17); Alkaline Phosphatase 367 U/L (41-126); BUN/Creat Ratio 9.33 Ratio (12.00-20.00); Bilirubin, Conjugated 2.82 mg/dL (0.20-0.40); Bilirubin,Unconjugated 0.88 mg/dL (0.20-1.00); Blood Urea Nitrogen 8.4 mg/dL (9.0-27.0); Carbon Dioxide 17.2 mmol/L (21.6-31.8); Chloride 100 mmol/L (96-109); Globulin 3.7 g/dL (1.6-3.3); Glucose 98 mg/dL (70-110); Potassium 4.6 mmol/L (3.5-5.5); Sodium 134 mmol/L (135-145); Total Bilirubin 3.7 mg/dL (0.3-1.2)
[2024-03-27 12:15] LABS: Glucose,Whole Blood 127 mg/dL (70-110)
--- NOTE | 2024-03-27 13:20 | P.PN ---
Subjective Progress Note Date: 03/27/24 CHIEF COMPLAINT: Alcohol withdrawal HISTORY OF PRESENT ILLNESS: Patient continues to have bleeding from the hemorrhoids. Yesterday he reports he forgot to use the hydrocortisone suppository and cream. And last night had a bowel movement with bleeding noted. Patient status post I&D of a left scrotal abscess with urology. Afebrile. WBC is down from 13.2-10.7 Hgb is up from 10.7 to 12 PHYSICAL EXAM: VITAL SIGNS: Reviewed GENERAL: Jaundiced. Well-developed in no acute distress. HEENT: Scleral icterus present. Extraocular movements grossly intact. Moist buccal mucosa. Head is atraumatic, normocephalic. Hears conversational speech. No nasal drainage. NECK: Supple without lymphadenopathy. CHEST: Non-labored respirations and equal bilateral excursions. CARDIOVASCULAR: Palpable 2+ radial pulses. ABDOMEN: Distended. Nontender. Reducible umbilical hernia. MUSCULOSKELETAL: No clubbing or cyanosis. NEUROLOGIC: No focal or lateralizing signs. Cranial nerves II through XII grossly intact. PSYCH: Appropriate affect. Alert and oriented to person, place and time. ASSESSMENT: 1. Hemorrhoids and rectal bleeding. 2. Alcohol liver cirrhosis with ascites 3. Left scrotal abscess status post I&D with urology service PLAN: -No surgical intervention planned at this time -Continue supportive care for the hemorrhoids -Continue medical management of liver cirrhosis Physician Ore Crushing Dust Collector note has been reviewed by physician. Signing provider agrees with the documented findings, assessment, and plan of care. Objective - Vital Signs Vital signs: Vital Signs Temp 99.1 F 03/27/24 08:00 Pulse 80 03/27/24 08:40 Resp 16 03/27/24 08:40 BP 103/60 03/27/24 08:00 Pulse Ox 97 03/27/24 08:00 FiO2 Intake & Output 03/26/24 03/27/24 03/27/24 18:59 06:59 18:59 Intake Total 240 Balance 240 Weight 85.8 kg Intake: Oral 240 Other: Voiding Method Toilet Toilet Toilet # Voids 3 6 - Labs CBC & Chem 7: 03/27/24 03:42 03/27/24 03:42 Labs: Abnormal Lab Results - Last 24 Hours (Table) 03/26/24 03/26/24 03/27/24 Range/Units 16:33 19:55 03:42 WBC 10.71 H (4.50-10.00) X 10*3/uL RBC 3.37 L (4.40-5.60) X 10*6/uL Hgb 12.0 L (13.0-17.0) g/dL Hct 38.0 L (39.6-50.0) % MCV 112.8 H (80.0-97.0) FL MCH 35.6 H (27.0-32.0) pg MCHC 31.6 L (32.0-37.0) g/dL Immature Gran # 0.29 H (0.00-0.04) X 10*3/uL Basophils # 0.12 H (0.00-0.10) X 10*3/uL NRBC/100 WBC Diff 0.02 H (0.00-0.01) X 10*3/uL Sodium (135-145) mmol/L Carbon Dioxide (21.6-31.8) mmol/L Anion Gap (4.00-12.00) mmol/L BUN (9.0-27.0) mg/dL BUN/Creatinine Ratio (12.00-20.00) Ratio POC Glucose (mg/dL) 124 H 141 H (70-110) mg/dL Total Bilirubin (0.3-1.2) mg/dL Conjugated Bilirubin (0.20-0.40) mg/dL AST (14-35) U/L Alkaline Phosphatase (41-126) U/L Albumin (3.8-4.9) g/dL Globulin (1.6-3.3) g/dL Albumin/Globulin Ratio (1.60-3.17) Ratio 03/27/24 03/27/24 Range/Units 03:42 12:13 WBC (4.50-10.00) X 10*3/uL RBC (4.40-5.60) X 10*6/uL Hgb (13.0-17.0) g/dL Hct (39.6-50.0) % MCV (80.0-97.0) FL MCH (27.0-32.0) pg MCHC (32.0-37.0) g/dL Immature Gran # (0.00-0.04) X 10*3/uL Basophils # (0.00-0.10) X 10*3/uL NRBC/100 WBC Diff (0.00-0.01) X 10*3/uL Sodium 134 L (135-145) mmol/L Carbon Dioxide 17.2 L (21.6-31.8) mmol/L Anion Gap 16.80 H (4.00-12.00) mmol/L BUN 8.4 L (9.0-27.0) mg/dL BUN/Creatinine Ratio 9.33 L (12.00-20.00) Ratio POC Glucose (mg/dL) 127 H (70-110) mg/dL Total Bilirubin 3.7 H (0.3-1.2) mg/dL Conjugated Bilirubin 2.82 H (0.20-0.40) mg/dL AST 134 H (14-35) U/L Alkaline Phosphatase 367 H (41-126) U/L Albumin 3.3 L (3.8-4.9) g/dL Globulin 3.7 H (1.6-3.3) g/dL Albumin/Globulin Ratio 0.89 L (1.60-3.17) Ratio Microbiology - Last 24 Hours (Table) 03/23/24 14:00 Gram Stain - Preliminary Ascites Fluid Body Fluid Culture - Preliminary 03/23/24 14:00 Anaerobic Culture - Preliminary Ascites Fluid 03/23/24 18:15 Gram Stain - Final Groin Wound Culture - Final
--- NOTE | 2024-03-27 15:26 | P.PN ---
Subjective Progress Note Date: 03/26/24 Principal diagnosis: Reason for follow-up is left groin abscess Patient is a 33-year-old male with a past medical history significant for hypertension alcohol abuse/cirrhosis current everyday smoker presenting to the hospital initially for alcohol withdrawal symptoms subsequent developed a fever and has been diagnosed with a left scrotal abscess status post surgical drainage completed on 03/23/2024. On today's evaluation that is 03/26/2024, the patient continues to be afebrile, the patient is on room air and breathing comfortably, the Pt denies having any chest pain or cough, the patient denies having any abdominal pain no vomiting or any diarrhea still complaining of pain to the left groin area but no worsening. Patient white count is 13.20 creatinine is 0.9 culture have been negative so far Objective - Vital Signs Vital signs: Vital Signs Temp 98.2 F 03/26/24 06:45 Pulse 74 03/26/24 08:57 Resp 17 03/26/24 08:57 BP 103/58 03/26/24 06:45 Pulse Ox 100 03/26/24 06:45 FiO2 Intake & Output 03/25/24 03/26/24 03/26/24 18:59 06:59 18:59 Weight 87.5 kg Other: Voiding Method Toilet Toilet # Voids 4 3 # Bowel Movements 1 1 - Exam GENERAL DESCRIPTION: Middle-age y male lying in bed in no distress RESPIRATORY SYSTEM: Unlabored breathing , decreased breath sounds at bases HEART: S1 S2 regular rate and rhythm , ABDOMEN: Soft , no tenderness EXTREMITIES: No edema feet - Labs CBC & Chem 7: 03/27/24 03:42 03/27/24 03:42 Labs: Abnormal Lab Results - Last 24 Hours (Table) 03/26/24 03/26/24 03/26/24 Range/Units 03:37 03:37 06:47 WBC 13.20 H (4.50-10.00) X 10*3/uL RBC 2.96 L (4.40-5.60) X 10*6/uL Hgb 10.7 L (13.0-17.0) g/dL Hct 33.4 L (39.6-50.0) % MCV 112.8 H (80.0-97.0) FL MCH 36.1 H (27.0-32.0) pg Immature Gran # 0.17 H (0.00-0.04) X 10*3/uL Neutrophils # 9.57 H (1.80-7.70) X 10*3/uL Monocytes # 1.18 H (0.20-1.00) X 10*3/uL Sodium 133 L (135-145) mmol/L Carbon Dioxide 21.0 L (21.6-31.8) mmol/L BUN/Creatinine Ratio 11.78 L (12.00-20.00) Ratio POC Glucose (mg/dL) 159 H (70-110) mg/dL Calcium 8.5 L (8.7-10.3) mg/dL Microbiology - Last 24 Hours (Table) 03/23/24 18:15 Gram Stain - Final Groin Wound Culture - Final 03/23/24 14:00 Gram Stain - Preliminary Ascites Fluid Body Fluid Culture - Preliminary 03/22/24 12:59 Blood Culture - Preliminary Blood 03/20/24 14:09 Blood Culture - Final Blood Assessment and Plan (1) Sepsis Current Visit: Yes Status: Acute Code(s): A41.9 - SEPSIS, UNSPECIFIED ORGANISM SNOMED Code(s): 35914641 (2) Scrotal abscess Current Visit: Yes Status: Acute Code(s): N49.2 - INFLAMMATORY DISORDERS OF SCROTUM SNOMED Code(s): 85251987 Plan: 1patient with sepsis in this patient who did have a fever tachycardia elevated white count meeting criteria for skull source likely left scrotal abscess likely from gram-positive skin maldonado gram-negative infection not entirely excluded. 2patient is status post urology evaluation and surgical drainage and deep culture which are currently pending. 3patient did have improvement in his fever pattern white count is trending down culture have been negative for any resistant pathogen on Zosyn while inpatient Dictation was produced using [employer] dictation software. please excuse any grammatical, word or spelling errors. Time with Patient: Less than 30
--- NOTE | 2024-03-27 15:27 | P.PN ---
Subjective Progress Note Date: 03/27/24 Principal diagnosis: Reason for follow-up is left groin abscess Patient is a 33-year-old male with a past medical history significant for hypertension alcohol abuse/cirrhosis current everyday smoker presenting to the hospital initially for alcohol withdrawal symptoms subsequent developed a fever and has been diagnosed with a left scrotal abscess status post surgical drainage completed on 03/23/2024. On today's evaluation that is 03/27/2024, Patient is afebrile patient is currently on room air and denies having any shortness of breath, the patient denies any chest pain or cough, the patient denies any nausea vomiting did not have any abdominal pain and no diarrhea, pain to the left scrotal area has decreased in intensity. Patient white count is down to 10.71 creatinine 0.9 Objective - Vital Signs Vital signs: Vital Signs Temp 98.2 F 03/27/24 14:00 Pulse 75 03/27/24 14:00 Resp 16 03/27/24 14:00 BP 95/59 03/27/24 14:00 Pulse Ox 93 L 03/27/24 14:00 FiO2 Intake & Output 03/26/24 03/27/24 03/27/24 18:59 06:59 18:59 Intake Total 480 Balance 480 Weight 85.8 kg Intake: Oral 480 Other: Voiding Method Toilet Toilet Toilet # Voids 3 6 3 # Bowel Movements 1 - Exam GENERAL DESCRIPTION: Middle-age y male lying in bed in no distress RESPIRATORY SYSTEM: Unlabored breathing , decreased breath sounds at bases HEART: S1 S2 regular rate and rhythm , ABDOMEN: Soft , no tenderness EXTREMITIES: No edema feet - Labs CBC & Chem 7: 03/27/24 03:42 03/27/24 03:42 Labs: Abnormal Lab Results - Last 24 Hours (Table) 03/26/24 03/26/24 03/27/24 Range/Units 16:33 19:55 03:42 WBC 10.71 H (4.50-10.00) X 10*3/uL RBC 3.37 L (4.40-5.60) X 10*6/uL Hgb 12.0 L (13.0-17.0) g/dL Hct 38.0 L (39.6-50.0) % MCV 112.8 H (80.0-97.0) FL MCH 35.6 H (27.0-32.0) pg MCHC 31.6 L (32.0-37.0) g/dL Immature Gran # 0.29 H (0.00-0.04) X 10*3/uL Basophils # 0.12 H (0.00-0.10) X 10*3/uL NRBC/100 WBC Diff 0.02 H (0.00-0.01) X 10*3/uL Sodium (135-145) mmol/L Carbon Dioxide (21.6-31.8) mmol/L Anion Gap (4.00-12.00) mmol/L BUN (9.0-27.0) mg/dL BUN/Creatinine Ratio (12.00-20.00) Ratio POC Glucose (mg/dL) 124 H 141 H (70-110) mg/dL Total Bilirubin (0.3-1.2) mg/dL Conjugated Bilirubin (0.20-0.40) mg/dL AST (14-35) U/L Alkaline Phosphatase (41-126) U/L Albumin (3.8-4.9) g/dL Globulin (1.6-3.3) g/dL Albumin/Globulin Ratio (1.60-3.17) Ratio 03/27/24 03/27/24 Range/Units 03:42 12:13 WBC (4.50-10.00) X 10*3/uL RBC (4.40-5.60) X 10*6/uL Hgb (13.0-17.0) g/dL Hct (39.6-50.0) % MCV (80.0-97.0) FL MCH (27.0-32.0) pg MCHC (32.0-37.0) g/dL Immature Gran # (0.00-0.04) X 10*3/uL Basophils # (0.00-0.10) X 10*3/uL NRBC/100 WBC Diff (0.00-0.01) X 10*3/uL Sodium 134 L (135-145) mmol/L Carbon Dioxide 17.2 L (21.6-31.8) mmol/L Anion Gap 16.80 H (4.00-12.00) mmol/L BUN 8.4 L (9.0-27.0) mg/dL BUN/Creatinine Ratio 9.33 L (12.00-20.00) Ratio POC Glucose (mg/dL) 127 H (70-110) mg/dL Total Bilirubin 3.7 H (0.3-1.2) mg/dL Conjugated Bilirubin 2.82 H (0.20-0.40) mg/dL AST 134 H (14-35) U/L Alkaline Phosphatase 367 H (41-126) U/L Albumin 3.3 L (3.8-4.9) g/dL Globulin 3.7 H (1.6-3.3) g/dL Albumin/Globulin Ratio 0.89 L (1.60-3.17) Ratio Microbiology - Last 24 Hours (Table) 03/23/24 14:00 Gram Stain - Preliminary Ascites Fluid Body Fluid Culture - Preliminary 03/23/24 14:00 Anaerobic Culture - Preliminary Ascites Fluid Assessment and Plan (1) Sepsis Current Visit: Yes Status: Acute Code(s): A41.9 - SEPSIS, UNSPECIFIED ORGANISM SNOMED Code(s): 61441429 (2) Scrotal abscess Current Visit: Yes Status: Acute Code(s): N49.2 - INFLAMMATORY DISORDERS OF SCROTUM SNOMED Code(s): 63797639 Plan: 1patient with sepsis in this patient who did have a fever tachycardia elevated white count meeting criteria for skull source likely left scrotal abscess likely from gram-positive skin maldonado gram-negative infection not entirely excluded. 2patient is status post urology evaluation and surgical drainage and deep c ulture which are currently pending. 3patient did have improvement in his fever pattern white count is almost normalized with a culture negative with resistant pathogen plan is for oral Augmentin on discharge for now continue with Zosyn Dictation was produced using [employer] software. please excuse any grammatical, word or spelling errors. Time with Patient: Less than 30
[2024-03-27 16:46] LABS: Glucose,Whole Blood 161 mg/dL (70-110)
[2024-03-27 21:34] LABS: Glucose,Whole Blood 115 mg/dL (70-110)
[2024-03-28 06:34] LABS: Glucose,Whole Blood 92 mg/dL (70-110)
[2024-03-28 08:17] VITALS: RESP 17
--- NOTE | 2024-03-28 10:30 | CDI ---
Documentation Clarification Form Date: 03/28/2024 09:36:08 AM From: Emma Nichols RN, CCDS Phone: [phone] Admit Date: 03/20/2024 05:40:00 AM Patient Name: Donovan Addison Visit Number: [id number] Discharge Date: ATTENTION: The Clinical Documentation Specialists (CDI) and [facility] Coding Staff appreciate your assistance in clarifying documentation. Please respond to the clarification below the line at the bottom and electronically sign. The CDI & [facility] Coding staff will review the response and follow-up if needed. Please note: Queries are made part of the Legal Health Record. If you have any questions, please contact the author of this message via ITS. Doctor/Provider: Agapito E Sheet The patient has severe sepsis risk documentation in the ED assessment and ID Consult and progress notes starting on 03/23/24. Based on this information and the findings below, is there an additional diagnosis that is clinically appropriate for this patient? History/Risk Factors: Hypertension, Liver Disease, Alcohol withdrawal, chronic hemorrhoid, Cirrhosis, Hypertension, ETOH abuse Clinical Indicators: 33-year-old male presents that he has symptoms of alcohol withdrawal and rectal pain 03/20 WBC 21.8 Lactic acid: 1.8 Blood cultures: No growth after 5 days 03/20 VS: 112/64 141 18 98.5 97% RA 03/21 VS: 135/77 113 16 98.3 93% RA WBC 9 03/23 VS: 101/50 110 101.3 17 WBC 13.44 03/21 Surgical consult: Patient has a known history of bleeding hemorrhoids. SKIN: Left peritoneum below the scrotum area about quarter size of redness induration warmth tender with palpation and firm. No drainage noted. Bleeding hemorrhoids. Cellulitis and induration of the left perineum. 03/23 ID Consult: patient with sepsis in this patient who did have a fever tachycardia elevated white count meeting criteria for skull source likely left scrotal abscess likely from gram-positive skin maldonado gram-negative infection not entirely excluded. Treatment: .9 NS 1,000 Bolus x2 Zosyn 3.378 GM IVPB Q8 HRS 03/21 03/23 Incision and drainage, left scrotal abscess Is there an additional diagnosis that is clinically appropriate for this patient? [ x ] Sepsis, present on admission [ ] Sepsis, developed during stay, not present on admission [ ] No additional diagnosis/not clinically significant [ ] Other, please specify [ ] Unable to determine SIRS Criteria: 2 or more of the following may indicate SIRS Temperature < 96.8F (36C) or > 101.0F (38.3C) Heart Rate > 90 bpm Respiratory Rate > 20 breaths/min or PaCO2 < 32 mmHg White Blood Cell Count > 12,000 or < 4,000 cells/mm3 or > 10% bands (Template Last Reviewed: June 2022) MTDD
[2024-03-28 11:29] LABS: Glucose,Whole Blood 153 mg/dL (70-110)
--- NOTE | 2024-03-28 12:25 | P.PN ---
Subjective Progress Note Date: 03/28/24 CHIEF COMPLAINT: Alcohol withdrawal HISTORY OF PRESENT ILLNESS: Patient continues to have bleeding from the hemorrhoids. Patient reports he started having more stools with blood after eating cottage cheese yesterday. He thinks that the cottage cheese may have been bad. But patient does say he has stomach issues with drinking milk sometimes. Hemoglobin yesterday was up from 10.7-12. PHYSICAL EXAM: VITAL SIGNS: Reviewed GENERAL: Jaundiced. Well-developed in no acute distress. HEENT: Scleral icterus present. Extraocular movements grossly intact. Moist buccal mucosa. Head is atraumatic, normocephalic. Hears conversational speech. No nasal drainage. NECK: Supple without lymphadenopathy. CHEST: Non-labored respirations and equal bilateral excursions. CARDIOVASCULAR: Palpable 2+ radial pulses. ABDOMEN: Nontender. Reducible umbilical hernia. MUSCULOSKELETAL: No clubbing or cyanosis. NEUROLOGIC: No focal or lateralizing signs. Cranial nerves II through XII grossly intact. PSYCH: Appropriate affect. Alert and oriented to person, place and time. ASSESSMENT: 1. Hemorrhoids and rectal bleeding. 2. Alcohol liver cirrhosis with ascites 3. Left scrotal abscess status post I&D with urology service PLAN: -Recommend a lactose-free diet -No surgical intervention planned at this time -Continue supportive care for the hemorrhoids -Continue medical management of liver cirrhosis Physician Model Maker Plastic note has been reviewed by physician. Signing provider agrees with the documented findings, assessment, and plan of care. Objective - Vital Signs Vital signs: Vital Signs Temp 97.9 F 03/28/24 07:30 Pulse 125 H 03/28/24 08:00 Resp 17 03/28/24 08:00 BP 115/69 03/28/24 07:30 Pulse Ox 98 03/28/24 07:30 FiO2 Intake & Output 03/27/24 03/28/24 03/28/24 18:59 06:59 18:59 Intake Total 480 900 Balance 480 900 Weight 90 kg Intake: Oral 480 900 Other: Voiding Method Toilet Toilet Toilet # Voids 3 8 # Bowel Movements 1 - Labs CBC & Chem 7: 03/27/24 03:42 03/27/24 03:42 Labs: Abnormal Lab Results - Last 24 Hours (Table) 03/27/24 03/27/24 03/28/24 Range/Units 16:45 21:32 11:27 POC Glucose (mg/dL) 161 H 115 H 153 H (70-110) mg/dL Microbiology - Last 24 Hours (Table) 03/23/24 14:00 Gram Stain - Final Ascites Fluid Body Fluid Culture - Final 03/22/24 12:59 Blood Culture - Final Blood 03/23/24 18:15 Anaerobic Culture - Preliminary Scrotum Propionibacterium species Anaerobic Gm Positive Bacill Anaerobic Gram Positive Cocci
[2024-03-28 16:48] LABS: Glucose,Whole Blood 141 mg/dL (70-110)
[2024-03-28] MEDS: AMPICILLIN-SULBACTAM 3 GM in SODIUM CHLORIDE 0.9% 100 ML IVPB SCH (17:08)
[2024-03-28 21:16] LABS: Glucose,Whole Blood 142 mg/dL (70-110)
--- NOTE | 2024-03-28 23:21 | P.PN ---
Subjective This is a pleasant 33 years old male with past medical history of multiple medical problems including alcohol liver cirrhosis and stigma. Presents for signs symptoms of alcohol withdrawal and left groin cellulitis and abscess. He was started on antibiotics Zosyn. He was evaluated by urologist s/p I&D yesterday. Today's postop day #1. He still complains from a bleeding per rectum secondary to hemorrhoids and he was evaluated by general surgery team with no need for surgical intervention. He still complains from pain in his left groin wound and rectum about 9/10 this morning however patient looks calm. No abdominal pain or distention and abdominal looks soft. No chest pain or dyspnea No significant signs symptoms of alcohol withdrawal Patient also evaluated by GI team however they signed off yesterday as they are not available this weekend and this coming week in this facility. Blood pressure is borderline 100/57 He had fever 101.3 but no fever today. Mildly tachycardic INR 1.7 Leukocytosis improving 13 down to 10.7, hemoglobin slightly less 9.8 down to 9.2 Liver enzymes and bilirubin are elevated but ALT is within the reference range Procalcitonin is elevated 4.3 as well as CRP at 8.7 Urine analysis is negative Hemoglobin A1c is elevated at 9.9 CT of the abdomen pelvis without contrast showing hepatomegaly and splenomegaly with gallbladder surgically absent Scrotal ultrasound showing possible abscess 1.6 x 1.7 cm Echocardiogram showing ejection fraction 55 to 60% 03/25 Overall feels fine Left scrotal wound is healing, pain controlled Wound culture is pending Remains on Zosyn No bleeding per rectum per surgery team 03/26 Left scrotal wound is healing, wound packing in place, he still complaining from some pain. Wound culture and blood culture pending, currently on Zosyn He still has some watering and some little bleeding from rectum secondary to his hemorrhoids. Surgery team are following closely and recommended no surgical intervention currently Patient with no overt symptoms of withdrawal currently. His mentation at baseline. 03/27 wound keep healing still on iv antibiotics for now no other new complaints pain controlled this morning 03/28/24 Patient still being treated for his left scrotal abscess, still improving slowly and gradually, His antibiotic were adjusted from Zosyn to Unasyn Wound culture is reviewed and final results He has some blood in the stool secondary to hemorrhoids, no need for surgical intervention per surgery team Possible discharge in 24 to 48 hours Objective - Vital Signs Vital signs: Vital Signs Temp 98.0 F 03/28/24 13:13 Pulse 89 03/28/24 13:13 Resp 17 03/28/24 13:13 BP 111/69 03/28/24 13:13 Pulse Ox 99 03/28/24 13:13 FiO2 Intake & Output 03/28/24 03/28/24 03/29/24 06:59 18:59 06:59 Intake Total 900 Balance 900 Weight 90 kg Intake: Oral 900 Other: Voiding Method Toilet Toilet # Voids 8 3 - Exam GENERAL: The patient is alert and oriented x3, not in any acute distress. Well developed, well nourished. HEENT: Pupils are round and equally reacting to light. EOMI. No scleral icterus. No conjunctival pallor. Normocephalic, atraumatic. No pharyngeal erythema. No thyromegaly. CARDIOVASCULAR: S1 and S2 present. No murmurs, rubs, or gallops. PULMONARY: Chest is clear to auscultation, no wheezing , no crackles. -ABDOMEN: Soft, nontender, nondistended, normoactive bowel sounds. No palpable organomegaly. Left groin/scrotal wound with wound weak in place, cellulitis surrounding is significantly improving MUSCULOSKELETAL: No joint swelling or deformity. EXTREMITIES: No cyanosis, clubbing, or pedal edema. NEUROLOGICAL: Gross neurological examination did not reveal any focal deficits. SKIN: No rashes. no petechiae. - Labs CBC & Chem 7: 03/27/24 03:42 03/27/24 03:42 Labs: Abnormal Lab Results - Last 24 Hours (Table) 03/27/24 03/28/24 03/28/24 Range/Units 21:32 11:27 16:46 POC Glucose (mg/dL) 115 H 153 H 141 H (70-110) mg/dL Microbiology - Last 24 Hours (Table) 03/23/24 18:15 Anaerobic Culture - Final Scrotum Propionibacterium species Actinomyces neuii Jo Anngoldia magna 03/23/24 14:00 Anaerobic Culture - Final Ascites Fluid 03/23/24 14:00 Gram Stain - Final Ascites Fluid Body Fluid Culture - Final 03/22/24 12:59 Blood Culture - Final Blood Assessment and Plan Assessment: Left scrotal abscess and left groin cellulitis status post I&D of his left scrotal abscess on 03/24 Alcohol withdrawal and alcohol use disorder Bleeding per rectum secondary to hemorrhoids Alcoholic liver cirrhosis Elevated ammonia with no evidence of hepatic encephalopathy mild alcoholic transaminitis and jaundice Plan: Continue with antibiotic Zosyn Follow-up wound culture and blood culture Infectious disease and urologist on the case GI service signing off for his alcoholic liver disease and other medical problems General surgical team following closely Continue with CIWA protocol and thiamine Continue with insulin and close monitoring of glucose Labs and medication were reviewed.. Continue same treatment. Continue with symptomatic treatment. Resume home medication. Monitor labs and vitals. DVT and GI prophylaxis. Further recommendations as per clinical course of the patient DVT prophylaxis: Subcutaneous heparin GI Prophylaxis: Pepcid Prognosis is guarded
[2024-03-29 00:08] LABS: Glucose,Whole Blood 152 mg/dL (70-110)
[2024-03-29 06:29] LABS: Glucose,Whole Blood 106 mg/dL (70-110)
[2024-03-29 08:34] LABS: HGB 11.2 g/dL (13.0-17.0); MCH 35.4 pg (27.0-32.0); MCHC 31.1 g/dL (32.0-37.0); MCV 113.9 FL (80.0-97.0); Mean Platelet Volume 11.3 FL (9.5-12.2); NRBC Per 100 WBC 0.02 X 10*3/uL (0.00-0.01); Platelet Count 293 X 10*3/uL (140-440); RBC 3.16 X 10*6/uL (4.40-5.60); RDW 13.9 % (11.5-14.5); WBC 15.99 X 10*3/uL (4.50-10.00)
[2024-03-29 09:36] LABS: Basophils # (A) 0.14 X 10*3/uL (0.00-0.10); Basophils % (A) 0.9 %; Eosinophils # (A) 0.18 X 10*3/uL (0.04-0.35); Eosinophils % (A) 1.1 %; Lymphocytes # (A) 2.36 X 10*3/uL (0.90-5.00); Lymphocytes % (A) 14.8 %; Macrocytosis (M) 3+; Monocytes # (A) 1.36 X 10*3/uL (0.20-1.00); Monocytes % (A) 8.5 %; Neutrophils # (A) 11.51 X 10*3/uL (1.80-7.70); Neutrophils % (A) 71.9 %
[2024-03-29 11:41] LABS: Glucose,Whole Blood 111 mg/dL (70-110)
--- NOTE | 2024-03-29 12:37 | P.PN ---
Subjective Progress Note Date: 03/29/24 CHIEF COMPLAINT: Alcohol withdrawal HISTORY OF PRESENT ILLNESS: Patient continues to have bleeding from the hemorrhoids. Patient reports 3 episodes of bleeding from the hemorrhoids last night with bowel movements. Patient requesting with the limit lactose-free diet be removed. He reports that he likes drinking milk and has to drink a lot of it upset his stomach. Afebrile. Hemoglobin down from 12-11.2 PHYSICAL EXAM: VITAL SIGNS: Reviewed GENERAL: Jaundiced. Well-developed in no acute distress. HEENT: Scleral icterus present. Extraocular movements grossly intact. Moist buccal mucosa. Head is atraumatic, normocephalic. Hears conversational speech. No nasal drainage. NECK: Supple without lymphadenopathy. CHEST: Non-labored respirations and equal bilateral excursions. CARDIOVASCULAR: Palpable 2+ radial pulses. ABDOMEN: Nontender. Reducible umbilical hernia. MUSCULOSKELETAL: No clubbing or cyanosis. NEUROLOGIC: No focal or lateralizing signs. Cranial nerves II through XII gr ossly intact. PSYCH: Appropriate affect. Alert and oriented to person, place and time. ASSESSMENT: 1. Hemorrhoids and rectal bleeding. 2. Alcohol liver cirrhosis with ascites 3. Left scrotal abscess status post I&D with urology service PLAN: -No surgical intervention planned at this time -Continue supportive care for the hemorrhoids -Continue medical management of liver cirrhosis Physician Segregator note has been reviewed by physician. Signing provider agrees with the documented findings, assessment, and plan of care. See additional documentation below. Patient reevaluated at 1236. CHIEF COMPLAINT: Hemorrhoids and rectal bleeding HISTORY OF PRESENT ILLNESS: The patient is a 33-year-old male with ETOH liver cirrhosis. Patient has baseline cirrhosis with hemorrhoidal bleeding which has improved with suppositories. Otherwise, patient is being followed by urology for scrotal abscess/groin abscess ROS: No reports of nausea and vomiting. No fevers or chills. No new chest pain. No productive sputum PHYSICAL EXAM: VITAL SIGNS: Reviewed CONSTITUTIONAL: Well developed and in no acute distress. EYES: Conjuctivae without sclera icterus. Extraocular movements grossly intact. HEAD, EARS, NOSE, THROAT: Moist buccal mucosa. Head is atraumatic, normocephalic. Hears conversational speech. No nasal drainage. RESPIRATORY: Non-labored respirations and equal bilateral excursions. CARDIOVASCULAR: Palpable 2+ radial pulses. ABDOMEN: Ascites with abdominal striae. MUSCULOSKELETAL: No gross deformity of the lower extremities noted. No clubbing. No cyanosis. SKIN: Good skin turgor. Well perfused. NEUROLOGIC: Cranial nerves II through XII grossly intact. No focal or lateralizing signs. PSYCH: Appropriate affect. Alert and oriented to person, place and time. CLINICAL LABS: Reviewed. WBC elevated ASSESSMENT: 1. Hemorrhoids and rectal bleeding, improving 2. Alcohol liver cirrhosis with ascites 3. Left groin abscess. 4. Leukocytosis PLAN: 1. Overall no surgical management for hemorrhoid building and do recommend medical management for ascites 2. Continue with suppositories. 3. General Surgery signing off. Please reconsult if needed. Objective - Vital Signs Vital signs: Vital Signs Temp 98.3 F 03/29/24 07:03 Pulse 82 03/29/24 08:36 Resp 17 03/29/24 08:36 BP 108/64 03/29/24 07:03 Pulse Ox 99 03/29/24 07:03 FiO2 Intake & Output 03/28/24 03/29/24 03/29/24 18:59 06:59 18:59 Intake Total 1020 Balance 1020 Weight 88 kg Intake: Oral 1020 Other: Voiding Method Toilet Toilet Toilet # Voids 3 8 - Labs CBC & Chem 7: 03/29/24 03:34 03/27/24 03:42 Labs: Abnormal Lab Results - Last 24 Hours (Table) 03/28/24 03/28/24 03/29/24 Range/Units 16:46 21:14 00:07 WBC (4.50-10.00) X 10*3/uL RBC (4.40-5.60) X 10*6/uL Hgb (13.0-17.0) g/dL Hct (39.6-50.0) % MCV (80.0-97.0) FL MCH (27.0-32.0) pg MCHC (32.0-37.0) g/dL Immature Gran # (0.00-0.04) X 10*3/uL Neutrophils # (1.80-7.70) X 10*3/uL Monocytes # (0.20-1.00) X 10*3/uL Basophils # (0.00-0.10) X 10*3/uL NRBC/100 WBC Diff (0.00-0.01) X 10*3/uL Macrocytosis (manual) POC Glucose (mg/dL) 141 H 142 H 152 H (70-110) mg/dL 03/29/24 03/29/24 Range/Units 03:34 11:40 WBC 15.99 H (4.50-10.00) X 10*3/uL RBC 3.16 L (4.40-5.60) X 10*6/uL Hgb 11.2 L (13.0-17.0) g/dL Hct 36.0 L (39.6-50.0) % MCV 113.9 H (80.0-97.0) FL MCH 35.4 H (27.0-32.0) pg MCHC 31.1 L (32.0-37.0) g/dL Immature Gran # 0.44 H (0.00-0.04) X 10*3/uL Neutrophils # 11.51 H (1.80-7.70) X 10*3/uL Monocytes # 1.36 H (0.20-1.00) X 10*3/uL Basophils # 0.14 H (0.00-0.10) X 10*3/uL NRBC/100 WBC Diff 0.02 H (0.00-0.01) X 10*3/uL Macrocytosis (manual) 3+ A POC Glucose (mg/dL) 111 H (70-110) mg/dL Microbiology - Last 24 Hours (Table) 03/23/24 18:15 Anaerobic Culture - Final Scrotum Propionibacterium species Actinomyces neuii Finegoldia magna 03/23/24 14:00 Anaerobic Culture - Final Ascites Fluid 03/23/24 14:00 Gram Stain - Final Ascites Fluid Body Fluid Culture - Final
[2024-03-29] MEDS ORDERED: traMADol 50 MG TAB PO PRN (14:00)
[2024-03-29 14:19] VITALS: BP 130/70; PULSE 85; TEMP 97.6
[2024-03-29] MEDS: traMADol 50 MG TAB PO STA (14:28)
--- NOTE | 2024-03-29 14:43 | P.PN ---
Subjective Progress Note Date: 03/28/24 Principal diagnosis: Reason for follow-up is left groin abscess Patient is a 33-year-old male with a past medical history significant for hypertension alcohol abuse/cirrhosis current everyday smoker presenting to the hospital initially for alcohol withdrawal symptoms subsequent developed a fever and has been diagnosed with a left scrotal abscess status post surgical drainage completed on 03/23/2024. On today's evaluation that is 03/28/2024, patient has been afebrile, patient is breathing comfortably and is currently on room air, patient denies having any significant cough no chest pain, patient denies nausea vomiting or diarrhea and no abdominal pain still complaining of pain to the left scrotal area though decreased in intensity. No CBC was done today cultures are growing mostly Propionibacterium species Objective - Vital Signs Vital signs: Vital Signs Temp 97.9 F 03/28/24 07:30 Pulse 125 H 03/28/24 08:00 Resp 17 03/28/24 08:00 BP 115/69 03/28/24 07:30 Pulse Ox 98 03/28/24 07:30 FiO2 Intake & Output 03/27/24 03/28/24 03/28/24 18:59 06:59 18:59 Intake Total 480 900 Balance 480 900 Weight 90 kg Intake: Oral 480 900 Other: Voiding Method Toilet Toilet Toilet # Voids 3 8 # Bowel Movements 1 - Exam GENERAL DESCRIPTION: Middle-age y male lying in bed in no distress RESPIRATORY SYSTEM: Unlabored breathing , decreased breath sounds at bases HEART: S1 S2 regular rate and rhythm , ABDOMEN: Soft , no tenderness EXTREMITIES: No edema feet - Labs CBC & Chem 7: 03/29/24 03:34 03/27/24 03:42 Labs: Abnormal Lab Results - Last 24 Hours (Table) 03/27/24 03/27/24 03/27/24 Range/Units 12:13 16:45 21:32 POC Glucose (mg/dL) 127 H 161 H 115 H (70-110) mg/dL 03/28/24 Range/Units 11:27 POC Glucose (mg/dL) 153 H (70-110) mg/dL Microbiology - Last 24 Hours (Table) 03/23/24 14:00 Gram Stain - Final Ascites Fluid Body Fluid Culture - Final 03/22/24 12:59 Blood Culture - Final Blood 03/23/24 18:15 Anaerobic Culture - Preliminary Scrotum Propionibacterium species Anaerobic Gm Positive Bacill Anaerobic Gram Positive Cocci Assessment and Plan (1) Sepsis Current Visit: Yes Status: Acute Code(s): A41.9 - SEPSIS, UNSPECIFIED ORGANISM SNOMED Code(s): 44367491 (2) Scrotal abscess Current Visit: Yes Status: Acute Code(s): N49.2 - INFLAMMATORY DISORDERS OF SCROTUM SNOMED Code(s): 26453611 Plan: 1patient with sepsis in this patient who did have a fever tachycardia elevated white count meeting criteria for skull source likely left scrotal abscess likely from gram-positive skin maldonado gram-negative infection not entirely excluded. 2patient is status post urology evaluation and surgical drainage and deep culture which are currently pending. 3patient local culture now growing Propionibacterium we will switch antibiotic to Unasyn and monitor clinical course closely Dictation was produced using [employer] dictation software. please excuse any grammatical, word or spelling errors. Time with Patient: Less than 30
--- NOTE | 2024-03-29 14:44 | P.PN ---
Subjective Progress Note Date: 03/29/24 Principal diagnosis: Reason for follow-up is left groin abscess Patient is a 33-year-old male with a past medical history significant for hypertension alcohol abuse/cirrhosis current everyday smoker presenting to the hospital initially for alcohol withdrawal symptoms subsequent developed a fever and has been diagnosed with a left scrotal abscess status post surgical drainage completed on 03/23/2024. On today's evaluation that is 03/29/2024, the patient continues to be afebrile, the patient is on room air and breathing comfortably, the Pt denies having any chest pain or cough, the patient denies having any abdominal pain no vomiting or any diarrhea mention pain to the left scrotal area has decreased in intensity. Patient local culture growing Finegoldia magna actinomyces and Propionibacterium Objective - Vital Signs Vital signs: Vital Signs Temp 98.3 F 03/29/24 07:03 Pulse 82 03/29/24 08:36 Resp 17 03/29/24 08:36 BP 108/64 03/29/24 07:03 Pulse Ox 99 03/29/24 07:03 FiO2 Intake & Output 03/28/24 03/29/24 03/29/24 18:59 06:59 18:59 Intake Total 1020 Balance 1020 Weight 88 kg Intake: Oral 1020 Other: Voiding Method Toilet Toilet Toilet # Voids 3 8 - Exam GENERAL DESCRIPTION: Middle-age y male lying in bed in no distress RESPIRATORY SYSTEM: Unlabored breathing , decreased breath sounds at bases HEART: S1 S2 regular rate and rhythm , ABDOMEN: Soft , no tenderness EXTREMITIES: No edema feet - Labs CBC & Chem 7: 03/29/24 03:34 03/27/24 03:42 Labs: Abnormal Lab Results - Last 24 Hours (Table) 03/28/24 03/28/24 03/29/24 Range/Units 16:46 21:14 00:07 WBC (4.50-10.00) X 10*3/uL RBC (4.40-5.60) X 10*6/uL Hgb (13.0-17.0) g/dL Hct (39.6-50.0) % MCV (80.0-97.0) FL MCH (27.0-32.0) pg MCHC (32.0-37.0) g/dL Immature Gran # (0.00-0.04) X 10*3/uL Neutrophils # (1.80-7.70) X 10*3/uL Monocytes # (0.20-1.00) X 10*3/uL Basophils # (0.00-0.10) X 10*3/uL NRBC/100 WBC Diff (0.00-0.01) X 10*3/uL Macrocytosis (manual) POC Glucose (mg/dL) 141 H 142 H 152 H (70-110) mg/dL 03/29/24 03/29/24 Range/Units 03:34 11:40 WBC 15.99 H (4.50-10.00) X 10*3/uL RBC 3.16 L (4.40-5.60) X 10*6/uL Hgb 11.2 L (13.0-17.0) g/dL Hct 36.0 L (39.6-50.0) % MCV 113.9 H (80.0-97.0) FL MCH 35.4 H (27.0-32.0) pg MCHC 31.1 L (32.0-37.0) g/dL Immature Gran # 0.44 H (0.00-0.04) X 10*3/uL Neutrophils # 11.51 H (1.80-7.70) X 10*3/uL Monocytes # 1.36 H (0.20-1.00) X 10*3/uL Basophils # 0.14 H (0.00-0.10) X 10*3/uL NRBC/100 WBC Diff 0.02 H (0.00-0.01) X 10*3/uL Macrocytosis (manual) 3+ A POC Glucose (mg/dL) 111 H (70-110) mg/dL Microbiology - Last 24 Hours (Table) 03/23/24 18:15 Anaerobic Culture - Final Scrotum Propionibacterium species Actinomyces neuii Finegoldia magna 03/23/24 14:00 Anaerobic Culture - Final Ascites Fluid Assessment and Plan (1) Sepsis Current Visit: Yes Status: Acute Code(s): A41.9 - SEPSIS, UNSPECIFIED ORGANISM SNOMED Code(s): 74402173 (2) Scrotal abscess Current Visit: Yes Status: Acute Code(s): N49.2 - INFLAMMATORY DISORDERS OF SCROTUM SNOMED Code(s): 10546201 Plan: 1patient with sepsis in this patient who did have a fever tachycardia elevated white count meeting criteria for skull source likely left scrotal abscess likely from gram-positive skin maldonado gram-negative infection not entirely excluded. 2patient is status post urology evaluation and surgical drainage and deep culture which are currently pending. 3patient local culture grew Propionibacterium, actinomyces patient is on Unasyn we will consider oral Augmentin at discharge and close outpatient follow-up Dictation was produced using [employer] dictation software. please excuse any grammatical, word or spelling errors. Time with Patient: Less than 30
--- NOTE | 2024-03-29 22:30 | P.DS ---
Providers Date of admission: 03/20/24 05:40 Attending physician: Bora Carreno Consults: 03/20/24 13:28 Consult Physician Routine Consulting Provider: Ida Ross Consult Reason/Comments: cirrhosis Do you want consulting provider notified?: Yes 03/21/24 13:25 Consult Physician Urgent Consulting Provider: Caitlin Pinzon Consult Reason/Comments: hemorrhoids, hernia, follows outpatient Do you want consulting provider notified?: Yes 03/23/24 09:46 Consult Physician Urgent Consulting Provider: Eileen Crowder Consult Reason/Comments: left testicle/ scrotal swelling redness, wbc elev, temps Do you want consulting provider notified?: Yes 03/23/24 09:47 Consult Physician Urgent Consulting Provider: Mati Arango Consult Reason/Comments: scrotal swelling, tenderness, ? ricardo? infection, fevers Do you want consulting provider notified?: Yes Primary care physician: [facility]– [place][Note 2] Course: Diagnoses: Left scrotal abscess and left groin cellulitis status post I&D of his left scro karl abscess on 03/24 Alcohol withdrawal and alcohol use disorder Bleeding per rectum secondary to hemorrhoids Alcoholic liver cirrhosis Elevated ammonia with no evidence of hepatic encephalopathy mild alcoholic transaminitis and jaundice Hospital course This is a pleasant 33 years old male with past medical history of multiple medical problems including alcohol liver cirrhosis and stigma. Presents for signs symptoms of alcohol withdrawal and left groin cellulitis and abscess. He was started on antibiotics Zosyn. He was evaluated by urologist s/p I&D. Patient Treated with antibiotic and the last 2 days his Zosyn switched to Unasyn, per ID team however follow the patient closely. His wound was changed twice a day. On the day of discharge wound is healing, no surrounding cellulitis, no significant purulent discharge. Also patient has been evaluated by surgery team for bleeding suspected secondary to hemorrhoids. He has been monitored more than a week, hemoglobin remained stable, vital stable. Patient is a known liver cirrhosis disease and he will always be at risk of bleeding, patient informed to keep monitoring and close follow-up outpatient avoid NSAIDs or similar medication. On the day of discharge patient was seen walking freely and normally by himself from the restroom to his bed. No dizziness no chest pain or dyspnea. No new GI/ symptoms. Patient was cleared for discharge by all consultants and infectious disease team, general surgery team who told me they will sign off the case today. GI team already sign of the case few days ago. Patient will be discharged on short course of oral Augmentin per ID team Problems and management plan were discussed with the patient and he verbalized understanding and acceptance Patient was found stable and can be discharged home in guarded prognosis however he needs follow-up as an outpatient. Patient was instructed to follow up with PCP Dr. Flynn within one week and patient agrees Patient was instructed to follow-up with With urologist Dr. Camarena, Dr. Frey from general surgery, Dr. Nunez from GI and Dr. Hicks from surgery, please refer to discharge instructions for more details Physical exam Gen: patient is a AAOx3, no distress CVS: S1-S2, RRR, no murmur Lungs: B/L CTA, no wheezing -Abdomen: soft, no distention, no tenderness, positive bowel sounds. Left scrotal wound is healing with no surrounding cellulitis, no purulent discharge Extremity: no leg edema or induration. Gait: Normal Time spent more than 35 minutes Patient Condition at Discharge: Fair Plan - Discharge Summary Discharge Rx Participant: Yes New Discharge Prescriptions: New Amoxic-Pot Clav 875-125Mg [Augmentin 875-125] 1 tab PO BID 10 Days #20 tab Lactulose [Cephulac] 20 gm PO BID #1800 ml Furosemide [Lasix] 40 mg PO DAILY #30 tab Spironolactone [Aldactone] 50 mg PO BID #120 tab Propranolol [Inderal] 10 mg PO BID #60 tab traMADol HCl [Ultram] 50 mg PO QID PRN 3 Days #12 tab PRN Reason: Pain Continue Thiamine [Vitamin B-1] 100 mg PO DAILY #30 tab Hydrocortisone Pr Cream [Proctosol-Hc 2.5%] 1 applic RECTAL QID Dapagliflozin Propanediol [Farxiga] 10 mg PO DAILY Nicotine 14Mg/24Hr Patch [Habitrol] 1 patch TRANSDERM DAILY #3 patch Sennosides-Docusate Sodium [Senokot-S] 1 tab PO DAILY PRN #30 tablet PRN Reason: Constipation Pantoprazole [Protonix] 40 mg PO DAILY Folic Acid 1 mg PO DAILY lisinopriL [Zestril] 10 mg PO DAILY #30 tab Glucagon Emergency Kit 1 mg IM ONCE PRN PRN Reason: low blood sugar Insulin Glargine,Hum.rec.anlog [Lantus Solostar Pen] 30 units SQ W/SUPPER Insulin Lispro [Insulin Lispro Kwikpen U-100] See Protocol SQ ACHS Hydrocortisone Suppository [Anusol-Hc] 25 mg RECTAL BID 7 Days #14 suppositor Magnesium Oxide [Mag-Ox] 400 mg PO DAILY #30 tab Sodium Bicarbonate Tab 650 mg PO BID #60 tab Discontinued Spironolactone [Aldactone] 25 mg PO DAILY #30 tablet Discharge Medication List Pantoprazole [Protonix] 40 mg PO DAILY 09/22/23 [History] Thiamine [Vitamin B-1] 100 mg PO DAILY #30 tab 09/30/23 [Rx] Folic Acid 1 mg PO DAILY 02/20/24 [History] lisinopriL [Zestril] 10 mg PO DAILY #30 tab 02/21/24 [Rx] Dapagliflozin Propanediol [Farxiga] 10 mg PO DAILY 03/08/24 [History] Glucagon Emergency Kit 1 mg IM ONCE PRN 03/08/24 [History] Hydrocortisone Pr Cream [Proctosol-Hc 2.5%] 1 applic RECTAL QID 03/08/24 [History] Insulin Glargine,Hum.rec.anlog [Lantus Solostar Pen] 30 units SQ W/SUPPER 03/08/24 [History] Insulin Lispro [Insulin Lispro Kwikpen U-100] See Protocol SQ ACHS 03/08/24 [History] Hydrocortisone Suppository [Anusol-Hc] 25 mg RECTAL BID 7 Days #14 suppositor 03/13/24 [Rx] Magnesium Oxide [Mag-Ox] 400 mg PO DAILY #30 tab 03/13/24 [Rx] Nicotine 14Mg/24Hr Patch [Habitrol] 1 patch TRANSDERM DAILY #3 patch 03/13/24 [Rx] Sennosides-Docusate Sodium [Senokot-S] 1 tab PO DAILY PRN #30 tablet 03/13/24 [Rx] Sodium Bicarbonate Tab 650 mg PO BID #60 tab 03/13/24 [Rx] Amoxic-Pot Clav 875-125Mg [Augmentin 875-125] 1 tab PO BID 10 Days #20 tab 10/17/24 [Rx] Furosemide [Lasix] 40 mg PO DAILY #30 tab 03/29/24 [Rx] Lactulose [Cephulac] 20 gm PO BID #1800 ml 03/29/24 [Rx] Propranolol [Inderal] 10 mg PO BID #60 tab 03/29/24 [Rx] Spironolactone [Aldactone] 50 mg PO BID #120 tab 03/29/24 [Rx] traMADol HCl [Ultram] 50 mg PO QID PRN 3 Days #12 tab 03/29/24 [Rx] Follow up Appointment(s)/Referral(s): Mati Arango MD [STAFF PHYSICIAN] - 1 Week (Office will call you with your appointment date and time.) Caitlin Pinzon MD [STAFF PHYSICIAN] - 1 Week (for your hemorrhoids. ) Ida Ross MD [STAFF PHYSICIAN] - 2 Weeks [facility], [NON-STAFF] - 1-2 Days ([facility] will call you to schedule your in home nursing visits.) Gabe Flynn DO [Primary Care Provider] - 04/05/24 8:15 am Activity/Diet/Wound Care/Special Instructions: Heart healthy diet Activity as restricted till you see your doctor Discharge/Stand Alone Forms: AA Meetings Dist & 24 - [facility], Outpatient Counseling, Inp Substance Abuse Facilities Discharge Disposition: HOME SELF-CARE
== END 2024-03-29 16:36 | disposition home or self-care (01) | DRG 720 ==
LOC: EC 03:29 → 5NMEDONC 05:40 → 4SSUR 17:47 → 3SCARD 18:56 → 4SSUR 03-21 22:31
PROVIDERS: ADMIT Hospitalist; ATTEND Hospitalist
PROC: HZ2ZZZZ Detoxification Services for Substance Abuse Treatment (ICD-10-PCS; 2024-03-20)
PROC: 3E0336Z Introduction of Nutritional Substance into Peripheral Vein, Percutaneous Approach (ICD-10-PCS; 2024-03-20)
PROC: 0W9 Anatomical Regions, General, Drainage (ICD-10-PCS; principal; 2024-03-23)
PROC: 0W9G3ZZ Drainage of Peritoneal Cavity, Percutaneous Approach (ICD-10-PCS; 2024-03-23)
DX: A41.9 Sepsis, unspecified organism (principal); F10.231 Alcohol dependence with withdrawal delirium; K70.31 Alcoholic cirrhosis of liver with ascites; L03.314 Cellulitis of groin; I07.1 Rheumatic tricuspid insufficiency; F10.229 Alcohol dependence with intoxication, unspecified; E11.9 Type 2 diabetes mellitus without complications; F17.210 Nicotine dependence, cigarettes, uncomplicated; I10 Essential (primary) hypertension; E87.1 Hypo-osmolality and hyponatremia; G89.29 Other chronic pain; K42.9 Umbilical hernia without obstruction or gangrene; K76.82 Hepatic encephalopathy; K62.5 Hemorrhage of anus and rectum; K64.9 Unspecified hemorrhoids; L02.214 Cutaneous abscess of groin; N45.3 Epididymo-orchitis; R00.0 Tachycardia, unspecified; E83.39 Other disorders of phosphorus metabolism; Z82.49 Family history of ischemic heart disease and other diseases of the circulatory system; I48.92 Unspecified atrial flutter; Z79.84 Long term (current) use of oral hypoglycemic drugs; K76.6 Portal hypertension; Z79.899 Other long term (current) drug therapy; Z87.442 Personal history of urinary calculi; Z90.49 Acquired absence of other specified parts of digestive tract; Z91.199 Patient's noncompliance with other medical treatment and regimen due to unspecified reason
CPT/HCPCS: 36415; 49083; 71045; 74176; 76870; 80048; 80053; 80076; 80306; 80320; 81001; 81003; 82042; 82140; 83036; 83605; 83735; 84145; 84157; 85025; 85027; 85610; 85730; 86140; 87040; 87070; 87075; 87205; 87636; 89050; 93005; 93306; 93975; 94760; 96361; 96374; 96375; 96376; 99285

== ENCOUNTER 2024-05-11 12:08 | Inpatient (IN) | payer OTHER ==
--- NOTE | 2024-05-11 12:39 | ED ---
Abdominal Pain HPI - General Chief Complaint: Abdominal Pain Stated Complaint: Abdominal Pain Time Seen by Provider: 05/11/24 12:17 Source: patient, RN notes reviewed Mode of arrival: ambulatory Limitations: no limitations - History of Present Illness Initial Comments: This is a 33-year-old male who presents to the emergency department for abdominal pain. States that it started earlier today. Pain is in the lower abdomen. He has some associated nausea. Denies any changes in bowel or bladder habits. Also denies any history of similar pain in the past. He did try taking Antabuse 5 days ago, but has not taken it since. Last alcoholic beverage was yesterday. He does report a history of alcohol withdrawals. MD Complaint: abdominal pain - Related Data Home Medications Medication Instructions Recorded Confirmed Pantoprazole [Protonix] 40 mg PO DAILY 09/22/23 03/20/24 Folic Acid 1 mg PO DAILY 02/20/24 03/20/24 Dapagliflozin Propanediol [Farxiga] 10 mg PO DAILY 03/08/24 03/20/24 Glucagon Emergency Kit 1 mg IM ONCE PRN 03/08/24 03/20/24 Hydrocortisone Pr Cream 1 applic RECTAL QID 03/08/24 03/20/24 [Proctosol-Hc 2.5%] Insulin Glargine,Hum.rec.anlog 30 units SQ W/SUPPER 03/08/24 03/20/24 [Lantus Solostar Pen] Insulin Lispro [Insulin Lispro See Protocol SQ ACHS 03/08/24 03/20/24 Kwikpen U-100] Previous Rx's Medication Instructions Recorded Thiamine [Vitamin B-1] 100 mg PO DAILY #30 tab 09/30/23 lisinopriL [Zestril] 10 mg PO DAILY #30 tab 02/21/24 Hydrocortisone Suppository 25 mg RECTAL BID 7 Days #14 03/13/24 [Anusol-Hc] suppositor Magnesium Oxide [Mag-Ox] 400 mg PO DAILY #30 tab 03/13/24 Nicotine 14Mg/24Hr Patch [Habitrol] 1 patch TRANSDERM DAILY #3 patch 03/13/24 Sennosides-Docusate Sodium 1 tab PO DAILY PRN #30 tablet 03/13/24 [Senokot-S] Sodium Bicarbonate Tab 650 mg PO BID #60 tab 03/13/24 Amoxic-Pot Clav 875-125Mg 1 tab PO BID 10 Days #20 tab 03/29/24 [Augmentin 875-125] Furosemide [Lasix] 40 mg PO DAILY #30 tab 03/29/24 Lactulose [Cephulac] 20 gm PO BID #1800 ml 03/29/24 Propranolol [Inderal] 10 mg PO BID #60 tab 03/29/24 Spironolactone [Aldactone] 50 mg PO BID #120 tab 03/29/24 traMADol HCl [Ultram] 50 mg PO QID PRN 3 Days #12 tab 03/29/24 Allergies Allergy/AdvReac Type Severity Reaction Status Date / Time No Known Allergies Allergy Verified 05/11/24 12:13 Review of Systems ROS Statement: Those systems with pertinent positive or pertinent negative responses have been documented in the HPI. ROS Other: All systems not noted in ROS Statement are negative. Past Medical History Past Medical History: Hypertension, Liver Disease Additional Past Medical History / Comment(s): Nephrolithiasis, ETOH abuse with past withdrawal tremors, past alcoholic hepatitis/acute severe kidney injury/hyperphosphatemia/acute metabolic encephalopathy from renal failure. History of Any Multi-Drug Resistant Organisms: None Reported Past Surgical History: Cholecystectomy, Tonsillectomy Past Anesthesia/Blood Transfusion Reactions: No Reported Reaction Past Psychological History: No Psychological Hx Reported Smoking Status: Current every day smoker Past Alcohol Use History: Abuse, Daily Past Drug Use History: Marijuana - Past Family History Father Family Medical History: Myocardial Infarction (PR) Mother Family Medical History: Hypertension Additional Family Medical History / Comment(s): heart stent General Exam Limitations: no limitations General appearance: alert, in no apparent distress Head exam: Present: atraumatic, normocephalic, normal inspection Respiratory exam: Present: normal lung sounds bilaterally. Absent: respiratory distress, wheezes, rales, rhonchi, stridor Cardiovascular Exam: Present: regular rate, normal rhythm, normal heart sounds. Absent: systolic murmur, diastolic murmur, rubs, gallop, clicks GI/Abdominal exam: Present: soft, tenderness (Lower abdomen), normal bowel sounds. Absent: distended Neurological exam: Present: alert, oriented X3, CN II-XII intact Psychiatric exam: Present: normal affect, normal mood Skin exam: Present: warm, dry, intact Course Vital Signs 05/11/24 12:13 Temperature 98.6 F Pulse Rate 140 H Respiratory 20 Rate Blood Pressure 136/75 O2 Sat by Pulse 100 Oximetry Medical Decision Making - Medical Decision Making This is a 33-year-old male who presents to the emergency department for abdomina l pain. Was pt. sent in by a medical professional or institution? @ -No Did you speak to anyone other than the patient for history? @ -No Did you review nursing and triage notes? @ -Yes, and I agree, it is accurate with regards to the patient's symptoms. Were old charts reviewed? @ -No Differential Diagnosis? @ -Differential Abdominal Pain Men: Appendicitis, cholecystitis, diverticulosis, ischemic bowel, pancreatitis, hepatitis, UTI, gastroenteritis, AAA, incarcerated hernia, bowel obstruction, constipation, inflammatory bowel, hepatitis, peptic ulcer disease, splenic infarction, perforated viscus, testicular torsion, this is not meant to be an all-inclusive list EKG interpreted by me (3pts min.)? @ -EKG interpreted by me demonstrating the following: Sinus tachycardia. Ventricular rate 122 bpm, NJ interval 132 ms, QRS duration 87 ms, QTc 394 ms. X-rays interpreted by me (1pt min.)? @ -Not obtained CT interpreted by me (1pt min.)? @ -CT scan of the abdomen and pelvis obtained. My interpretation identifies ascites. U/S interpreted by me (1pt. min.)? @ -Not obtained What testing was considered but not performed? (CT, X-rays, U/S, labs)? Why? @ -None What meds were considered but not given? Why? @ -None Did you discuss the management of the patient with other professionals? @ -Yes, Dr. Munoz, who accepts the patient for admission. Did you reconcile home meds? @ -No Was smoking cessation discussed for >3mins.? @ -No Was critical care preformed (if so, how long)? @ -No Were there social determinants of health that impacted care today? How? (Homelessness, low income, unemployed, alcoholism, drug addiction, transportation, low edu. Level, literacy, decrease access to med. care, care home, rehab)? @ -Alcoholism, causing the cirrhosis, which led to the ascites and his visit today. Was there de-escalation of care discussed even if they declined? (Discuss DNR or withdrawal of care, Hospice)? @ -No What co-morbidities impacted this encounter? (DM, HTN, Smoking, COPD, CAD, Cancer, CVA, Hep., AIDS, mental health diagnosis, sleep apnea, morbid obesity)? @ -Alcoholism Was patient admitted / discharged? @ -Admitted. Lab work demonstrates decreased hemoglobin of 10.1, which is st able when compared with prior. LFTs are also elevated, however they are also similar with prior values and consistent with patient's history of cirrhosis. Lactic acid elevated at 2.9. Magnesium also low at 1.3. 400 mg of magnesium oxide and 2 g of IVPB magnesium sulfate administered. CT scan of the abdomen and pelvis demonstrates a moderate to large amount of ascites. There is also redemonstration of hepatocellular disease. While he does have a moderate to large amount of ascites noted, his abdomen is not particularly tense. Discussed the possibility of this contributing to his pain. Advised that he may need another paracentesis, however given that it is the weekend it may not be done until Tuesday. However, there is also concern that the patient is starting to go through withdrawals as his last drink was yesterday and he was becoming tachycardic and shaky. Patient subsequently admitted to medicine for alcohol withdrawals and ascites. CIWA protocol initiated. Consult placed for IR. Case discussed with ED attending Dr. De León. Undiagnosed new problem with uncertain prognosis? @ -None Drug Therapy requiring intensive monitoring for toxicity (Heparin, Nitro, Insulin, Cardizem)? @ -None Were any procedures done? @ -None Diagnosis/symptom? @ -Alcohol withdrawals, ascites, hypomagnesemia Acute, or Chronic, or Acute on Chronic? @ -Acute Uncomplicated (without systemic symptoms) or Complicated (systemic symptoms)? @ -Complicated Side effects of treatment? @ -None Exacerbation, Progression, or Severe Exacerbation] @ -Not applicable Poses a threat to life or bodily function? @ -Yes, withdrawals can lead to DTs, which can be life threatening - Lab Data Result diagrams: 05/11/24 12:43 05/11/24 12:43 Lab Results 05/11/24 05/11/24 05/11/24 Range/Units 12:43 12:43 12:43 WBC 10.0 (3.8-10.6) k/uL RBC 2.99 L (4.30-5.90) m/uL Hgb 10.1 L (13.0-17.5) gm/dL Hct 32.1 L (39.0-53.0) % MCV 107.6 H D (80.0-100.0) fL MCH 33.9 (25.0-35.0) pg MCHC 31.5 (31.0-37.0) g/dL RDW 14.3 (11.5-15.5) % Plt Count 148 L (150-450) k/uL MPV 8.6 Neutrophils % 79 % Lymphocytes % 11 % Monocytes % 7 % Eosinophils % 0 % Basophils % 0 % Neutrophils # 7.9 H (1.3-7.7) k/uL Lymphocytes # 1.1 (1.0-4.8) k/uL Monocytes # 0.7 (0-1.0) k/uL Eosinophils # 0.0 (0-0.7) k/uL Basophils # 0.0 (0-0.2) k/uL Hypochromasia Slight Macrocytosis Moderate PT (10.0-12.5) sec INR (<1.2) APTT (22.0-30.0) sec Sodium 136 L (137-145) mmol/L Potassium 3.9 (3.5-5.1) mmol/L Chloride 107 (98-107) mmol/L Carbon Dioxide 21 L (22-30) mmol/L Anion Gap 8 mmol/L BUN 3 L (9-20) mg/dL Creatinine 0.74 (0.66-1.25) mg/dL Est GFR (CKD-EPI)AfAm >90 (>60 ml/min/1.73 sqM) Est GFR (CKD-EPI)NonAf >90 (>60 ml/min/1.73 sqM) Glucose 127 H (74-99) mg/dL Plasma Lactic Acid Raul 2.9 H* (0.7-2.0) mmol/L Calcium 7.9 L (8.4-10.2) mg/dL Magnesium 1.3 L (1.6-2.3) mg/dL Total Bilirubin 5.4 H (0.2-1.3) mg/dL AST 350 H (17-59) U/L ALT 59 H (4-49) U/L Alkaline Phosphatase 823 H (38-126) U/L Total Protein 8.3 H (6.3-8.2) g/dL Albumin 3.3 L (3.5-5.0) g/dL Amylase 69 (30-110) U/L Lipase 185 (23-300) U/L Serum Alcohol <10 mg/dL 05/11/24 Range/Units 12:43 WBC (3.8-10.6) k/uL RBC (4.30-5.90) m/uL Hgb (13.0-17.5) gm/dL Hct (39.0-53.0) % MCV (80.0-100.0) fL MCH (25.0-35.0) pg MCHC (31.0-37.0) g/dL RDW (11.5-15.5) % Plt Count (150-450) k/uL MPV Neutrophils % % Lymphocytes % % Monocytes % % Eosinophils % % Basophils % % Neutrophils # (1.3-7.7) k/uL Lymphocytes # (1.0-4.8) k/uL Monocytes # (0-1.0) k/uL Eosinophils # (0-0.7) k/uL Basophils # (0-0.2) k/uL Hypochromasia Macrocytosis PT 19.8 H (10.0-12.5) sec INR 2.0 H (<1.2) APTT 31.7 H (22.0-30.0) sec Sodium (137-145) mmol/L Potassium (3.5-5.1) mmol/L Chloride (98-107) mmol/L Carbon Dioxide (22-30) mmol/L Anion Gap mmol/L BUN (9-20) mg/dL Creatinine (0.66-1.25) mg/dL Est GFR (CKD-EPI)AfAm (>60 ml/min/1.73 sqM) Est GFR (CKD-EPI)NonAf (>60 ml/min/1.73 sqM) Glucose (74-99) mg/dL Plasma Lactic Acid Raul (0.7-2.0) mmol/L Calcium (8.4-10.2) mg/dL Magnesium (1.6-2.3) mg/dL Total Bilirubin (0.2-1.3) mg/dL AST (17-59) U/L ALT (4-49) U/L Alkaline Phosphatase (38-126) U/L Total Protein (6.3-8.2) g/dL Albumin (3.5-5.0) g/dL Amylase (30-110) U/L Lipase (23-300) U/L Serum Alcohol mg/dL - Radiology Data Radiology results: report reviewed, image reviewed Disposition Clinical Impression: Alcohol withdrawal, Alcoholic cirrhosis of liver with ascites, Hypomagnesemia Disposition: ADMITTED IP TO THIS [facility] Referrals: Gabe Flynn DO [Primary Care Provider] - 1-2 days
[2024-05-11] MEDS: ONDANSETRON 4 MG/2 ML VIAL IVP STA ×2 (12:44→16:10)
[2024-05-11] MEDS: SODIUM CHLORIDE 0.9% 1,000 ML IV STA (12:44)
[2024-05-11] MEDS: MORPHINE SULFATE 4 MG/ML SYRINGE IVP STA ×2 (12:45→16:10)
[2024-05-11] MEDS: KETOROLAC 15 MG/ML 1 ML VIAL IVP STA (12:45)
[2024-05-11 13:14] LABS: Basophils % (A) 0 %; Eosinophils % (A) 0 %; HCT 32.1 % (39.0-53.0); HGB 10.1 gm/dL (13.0-17.5); Hypochromasia Slight; Lymphocytes # (A) 1.1 k/uL (1.0-4.8); Lymphocytes % (A) 11 %; MCH 33.9 pg (25.0-35.0); MCHC 31.5 g/dL (31.0-37.0); Macrocytosis Moderate; Mean Platelet Volume 8.6; Monocytes # (A) 0.7 k/uL (0-1.0); Monocytes % (A) 7 %; Neutrophils # (A) 7.9 k/uL (1.3-7.7); Neutrophils % (A) 79 %; Platelet Count 148 k/uL (150-450); RBC 2.99 m/uL (4.30-5.90); RDW 14.3 % (11.5-15.5)
[2024-05-11 13:18] LABS: MCV 107.6 fL (80.0-100.0)
[2024-05-11 13:19] LABS: Partial Thromboplastin Time 31.7 sec (22.0-30.0); Prothrombin Time 19.8 sec (10.0-12.5)
[2024-05-11 13:21] LABS: ALT 59 U/L (4-49); AST 350 U/L (17-59); African American GFR (CKD) >90 (>60 ml/min/1.73 sqM); Albumin 3.3 g/dL (3.5-5.0); Alcohol <10 mg/dL; Alkaline Phosphatase 823 U/L (38-126); Amylase 69 U/L (30-110); Anion Gap 8 mmol/L; Blood Urea Nitrogen 3 mg/dL (9-20); Calcium 7.9 mg/dL (8.4-10.2); Carbon Dioxide 21 mmol/L (22-30); Chloride 107 mmol/L (98-107); Glucose 127 mg/dL (74-99); Lipase 185 U/L (23-300); Magnesium 1.3 mg/dL (1.6-2.3); Non-African American GFR(CKD) >90 (>60 ml/min/1.73 sqM); Potassium 3.9 mmol/L (3.5-5.1); Sodium 136 mmol/L (137-145); Total Bilirubin 5.4 mg/dL (0.2-1.3); Total Protein 8.3 g/dL (6.3-8.2)
--- NOTE | 2024-05-11 15:25 | CT ---
EXAMINATION TYPE: CT abdomen pelvis w con CT DLP: 1164 mGycm, Automated exposure control for dose reduction was used. DATE OF EXAM: 05/11/2024 3:16 PM COMPARISON: CT abdomen pelvis 03/22/2024 CLINICAL INDICATION:Male, 33 years old with history of abdominal pain, acute, nonlocalized; ABD PAIN/ ABNORMAL LABS TECHNIQUE: Standard CT of the abdomen and pelvis following the administration of 100 cc of Isovue 3 00 IV contrast material. Coronal and sagittal reformats were performed. FINDINGS: LOWER CHEST: Linear atelectasis within the right lower lobe. ABDOMEN LIVER: Enlarged measuring 25.4 cm in CC dimension. Diffusely low attenuation with heterogenous appear ance and nodular surface contour. No definitive focal lesion. GALLBLADDER AND BILE DUCTS: Gallbladder appears surgically absent. No biliary duct dilatation. PANCREAS: Unremarkable noncontrast appearance. SPLEEN: Enlarged measuring 16.9 cm in AP dimension. ADRENAL GLANDS: Unremarkable. KIDNEYS AND URETERS: No evidence of hydronephrosis. Punctate right renal nonobstructive calculus. Con trast is demonstrated within both collecting systems on delayed phase. PELVIS BLADDER: Incompletely distended but grossly unremarkable. REPRODUCTIVE: Unremarkable. ABDOMEN & PELVIS STOMACH AND BOWEL: Stomach and duodenum are unremarkable. No focal wall thickening or surrounding inf lammatory changes. The appendix is within normal limits. No focal bowel wall thickening. No evidence of bowel obstruction. PERITONEUM: No evidence of pneumoperitoneum. Moderate to large volume ascites. VASCULATURE: No evidence of aortic aneurysm. Perisplenic and perigastric varices redemonstrated. MUSCULOSKELETAL: Remote bilateral rib fractures. LYMPH NODES: No pathologically enlarged lymph nodes identified. SOFT TISSUE/ABDOMINAL WALL: Small umbilical hernia containing ascites. Patulous fat filled left ingui nal ring. Collateral vessels identified within the subcutaneous tissues anterior abdominal wall with large collateral vein within the left anterior abdominal wall. IMPRESSION: 1. Redemonstration of hepatocellular disease with hepatomegaly, fatty infiltration, and cirrhosis. T here are findings of portal hypertension again with splenomegaly, varices/collaterals, and moderate t o large amount ascites. 2. Nonobstructive right renal punctate calculus. [facility], , 05/11/2024 3:23 PM
[2024-05-11] MEDS ORDERED: LORazepam 2 MG/ML INJ IV PRN (15:31)
[2024-05-11] MEDS ORDERED: NALOXONE 0.4 MG/ML 1 ML VIAL IV PRN (15:45)
[2024-05-11] MEDS ORDERED: ACETAMINOPHEN TAB 325 MG TAB PO PRN (15:45)
[2024-05-11] MEDS: MAGNESIUM SULFATE-D5W PMX 1 GM in DEXTROSE/WATER 1 100ML.BAG IVPB SCH (16:09)
[2024-05-11] MEDS: NICOTINE 14MG/24HR PATCH TRANSDERM STA (16:10)
[2024-05-11] MEDS: MAGNESIUM OXIDE 400 MG TAB PO STA (16:10)
[2024-05-11] MEDS: THIAMINE 100 MG/ML 2 ML VIAL IM STA (16:23)
[2024-05-11] MEDS: LORazepam 2 MG/ML INJ IV PRN (16:32)
[2024-05-11 17:02] LABS: Appearance,Urine Clear (Clear); Bilirubin,Urine 1+ (Negative); Blood,Urine Negative (Negative); Color,Urine Yellow; Glucose,Urine (UA) 4+ (Negative); Ketones,Urine Negative (Negative); Leukocyte Esterase,Urine Negative (Negative); Nitrite,Urine Negative (Negative); Protein,Urine Trace (Negative)
[2024-05-11 17:09] LABS: Specific Gravity,Urine >1.050 (1.001-1.035)
[2024-05-11] MEDS ORDERED: IBUPROFEN 400 MG TAB PO PRN (18:00)
[2024-05-11] MEDS: MORPHINE SULFATE 4 MG/ML SYRINGE IV PRN (19:27)
[2024-05-11] MEDS: ONDANSETRON 4 MG/2 ML VIAL IVP PRN (23:01)
[2024-05-12] MEDS: LORazepam 2 MG/ML INJ IV PRN ×2 (03:38→12:59)
[2024-05-12] MEDS: FOLIC ACID 1 MG TAB PO SCH ×2 (08:08→10:30)
[2024-05-12] MEDS: MULTIVITAMINS, THERA 1 EACH TAB PO SCH (08:08)
[2024-05-12] MEDS: THIAMINE 100 MG TAB PO SCH ×2 (08:08→10:30)
[2024-05-12] MEDS: PANTOPRAZOLE 40 MG/10 ML VIAL IV SCH (08:10)
[2024-05-12] MEDS ORDERED: DEXTROSE 50% SYRINGE 50 ML IVP PRN ×2 (09:23)
[2024-05-12] MEDS: DAPAGLIFLOZIN PROPANEDIOL 10 MG TABLET PO SCH (10:38)
[2024-05-12] MEDS: FERROUS SULFATE 325 MG TAB PO SCH (10:38)
[2024-05-12] MEDS: lisinopriL 20 MG TAB PO SCH (10:38)
[2024-05-12] MEDS: SPIRONOLACTONE 25 MG TAB PO SCH (10:38)
[2024-05-12 11:50] LABS: Glucose,Whole Blood 109 mg/dL (70-110)
[2024-05-12] MEDS: INSULIN ASPART (NovoLOG) 100 UNIT/ML VIAL SQ SCH (11:56)
[2024-05-12] MEDS: FUROSEMIDE 10 MG/ML 2 ML VIAL IV SCH (12:56)
--- NOTE | 2024-05-12 13:33 | P.HPIM ---
History of Present Illness H&P Date: 05/12/24 33-year-old male with longstanding history of chronic alcoholism, hypertension, hemorrhoids, nicotine and marijuana use. Patient comes into the hospital secondary to abdominal discomfort that started a couple days ago. The pain is generalized. Patient states that he was sober for a bit he was having hiccups at home and his mother states that he used vinegar and pickle juice to treat the hiccups and because of the "alcohol" content this has caused him to want to begin drinking again. In order to attempt to stop drinking alcohol he had a one year old prescription of antabuse that he can began taking over the last couple days but he proceeded to vomit and get really sick off of it. He does state that he was drinking alcohol at the same time as this he drinks about 1 pint per day last drink was 2 days ago. He also reports issues with the abdominal hernia states surgery wont' repair it until his liver issues resolve. He was recently admitted to the hospital back in March discharged on 03/29, he was treated for left scrotal abscess and left groin cellulitis had an I and D of this. He also had bleeding per rectum due to hemorrhoids which was treated with the annusol suppositories. During that admission he underwent diagnostic and therapeutic paracentesis with 3.7 L of fluid removed. Ascites fluid culture did not grow any bacteria. He was discharged on oral antibiotics and recommended for GI follow up. He returns after continuing to drink alcohol daily with abdominal pain. Abdominal pelvis CT reveals hepatocellular disease with hepatomegaly fatty infiltration and cirrhosis. There are findings of portal hypertension again with splenomegaly and varices/collaterals and moderate to large amount of ascites. There is a nonobstructive right renal punctuate calculus. Blood work on admission reveals a white blood cell count of 10.0, MCV of 107.6, hemoglobin 0.1, INR of 2.0, sodium 136, BUN of 3 creatinine of 0.74, lactic acid of 2.9, magnesium 1.3, total bili of 5.4, AST of 350 ALT of 59, alk phos 823. Amylase and lipase are within normal limits. His urinalysis is not overly suggestive of infection and his serum alcohol level is less than 10. Patient was given IV magnesium supplement, antiemetics and IV pain medication. Started on IV ativan ciwa protocol. IR unavailable until Tuesday to perform paracentesis this admission. REVIEW OF SYSTEMS: CONSTITUTIONAL: No fever, no malaise, no fatigue. HEENT: No recent visual problems or hearing problems. Denied any sore throat. CARDIOVASCULAR: No chest pain, orthopnea, PND, no palpitations, no syncope. PULMONARY: No shortness of breath, no cough, no hemoptysis. GASTROINTESTINAL: No diarrhea, no vomiting, Reports abdominal pain and nausea. NEUROLOGICAL: No headaches, no weakness, no numbness. HEMATOLOGICAL: Denies any bleeding or petechiae. GENITOURINARY: Denies any burning micturition, frequency, or urgency. MUSCULOSKELETAL/RHEUMATOLOGICAL: Denies any joint pain, swelling, or any muscle pain. ENDOCRINE: Denies any polyuria or polydipsia. The rest of the 14-point review of systems is negative. PHYSICAL EXAMINATION: GENERAL: The patient is alert and oriented x3, not in any acute distress. Well developed, well nourished. HEENT: Pupils are round and equally reacting to light. EOMI. No scleral icterus. No conjunctival pallor. Normocephalic, atraumatic. No pharyngeal erythema. No thyromegaly. CARDIOVASCULAR: S1 and S2 present. No murmurs, rubs, or gallops. PULMONARY: Chest is clear to auscultation, no wheezing or crackles. ABDOMEN: Soft, nontender, distended, round, normoactive bowel sounds. No palpable organomegaly. MUSCULOSKELETAL: No joint swelling or deformity. EXTREMITIES: No cyanosis, clubbing, or pedal edema. NEUROLOGICAL: Gross neurological examination did not reveal any focal deficits. SKIN: No rashes. Assessment and Plan Abdominal pain likely from the abdominal ascites with moderate to large amount of fluid on the abdominal CT. IR not available until tuesday to perform thoracentesis. Alcohol withdrawal and alcohol use disorder Alcoholic liver cirrhosis and portal hypertension Macrocytic anemia likely from chronic alcoholism Lactic acidosis likely from vomiting normalized now Hypomagnesemia from alcoholism Transaminitis and hyperbilirubinemia from liver cirrhosis and alcoholism Diabetes Mellitus type 2 Hx hypertension Chronic and ongoing nicotine use Marijuana use GI prophylaxis Full Code Plan Continue on home dose of aldactone and add IV lasix 20 mg IV q12 hour Pending paracentesis Pain management with IV morphine Continue IV ativan ciwa protocol Continue on lisinopril Continue accuchecks ACHS and sliding scale insulin and farxiga. Check ammonia level Repeat CMP The impression and plan of care has been dictated by Racheal Marroquin, Nurse Practitioner as directed. Dr. Asim MD I have performed a history and physical examination and medical decision making of this patient, discussed the same with the dictator, and agree with the di ctators assessment and plan as written, documented as a scribe. Based on total visit time, I have performed more than 50% of this visit. Past Medical History Past Medical History: Hypertension, Liver Disease Additional Past Medical History / Comment(s): Nephrolithiasis, ETOH abuse with past withdrawal tremors, past alcoholic hepatitis/acute severe kidney injury/hyperphosphatemia/acute metabolic encephalopathy from renal failure. History of Any Multi-Drug Resistant Organisms: None Reported Past Surgical History: Cholecystectomy, Tonsillectomy Past Anesthesia/Blood Transfusion Reactions: No Reported Reaction Past Psychological History: No Psychological Hx Reported Smoking Status: Current every day smoker Past Alcohol Use History: Abuse, Daily Past Drug Use History: Marijuana - Past Family History Father Family Medical History: Myocardial Infarction (ID) Mother Family Medical History: Hypertension Additional Family Medical History / Comment(s): heart stent Medications and Allergies Home Medications Medication Instructions Recorded Confirmed Type Thiamine [Vitamin B-1] 100 mg PO DAILY #30 tab 09/30/23 05/11/24 Rx Folic Acid 1 mg PO DAILY 02/20/24 05/11/24 History Dapagliflozin Propanediol [Farxiga] 10 mg PO DAILY 03/08/24 05/11/24 History Insulin Lispro [Insulin Lispro See Protocol SQ ACHS 03/08/24 05/11/24 History Kwikpen U-100] Spironolactone [Aldactone] 50 mg PO BID #120 tab 03/29/24 05/11/24 Rx Ferrous Sulfate [Feosol] 325 mg PO DAILY 05/11/24 05/11/24 History lisinopriL [Zestril] 20 mg PO DAILY 05/11/24 05/11/24 History Allergies Allergy/AdvReac Type Severity Reaction Status Date / Time No Known Allergies Allergy Verified 05/11/24 16:16 Physical Exam Vitals: Vital Signs Temp Pulse Resp BP Pulse Ox 05/12/24 08:06 98.2 F 111 H 20 131/76 98 05/12/24 06:23 98 17 129/79 95 05/11/24 23:00 95 17 143/83 96 05/11/24 16:36 104 H 20 146/79 97 05/11/24 12:13 98.6 F 140 H 20 136/75 100 Results CBC & Chem 7: 05/11/24 12:43 05/11/24 12:43 Labs: Abnormal Lab Results - Last 24 Hours (Table) 05/11/24 05/11/24 05/11/24 Range/Units 12:43 12:43 12:43 RBC 2.99 L (4.30-5.90) m/uL Hgb 10.1 L (13.0-17.5) gm/dL Hct 32.1 L (39.0-53.0) % MCV 107.6 H D (80.0-100.0) fL Plt Count 148 L (150-450) k/uL Neutrophils # 7.9 H (1.3-7.7) k/uL PT (10.0-12.5) sec INR (<1.2) APTT (22.0-30.0) sec Sodium 136 L (137-145) mmol/L Carbon Dioxide 21 L (22-30) mmol/L BUN 3 L (9-20) mg/dL Glucose 127 H (74-99) mg/dL Plasma Lactic Acid Raul 2.9 H* (0.7-2.0) mmol/L Calcium 7.9 L (8.4-10.2) mg/dL Magnesium 1.3 L (1.6-2.3) mg/dL Total Bilirubin 5.4 H (0.2-1.3) mg/dL AST 350 H (17-59) U/L ALT 59 H (4-49) U/L Alkaline Phosphatase 823 H (38-126) U/L Total Protein 8.3 H (6.3-8.2) g/dL Albumin 3.3 L (3.5-5.0) g/dL Ur Specific [place] (1.001-1.035) Urine Protein (Negative) Urine Glucose (UA) (Negative) Urine Bilirubin (Negative) 05/11/24 05/11/24 Range/Units 12:43 16:54 RBC (4.30-5.90) m/uL Hgb (13.0-17.5) gm/dL Hct (39.0-53.0) % MCV (80.0-100.0) fL Plt Count (150-450) k/uL Neutrophils # (1.3-7.7) k/uL PT 19.8 H (10.0-12.5) sec INR 2.0 H (<1.2) APTT 31.7 H (22.0-30.0) sec Sodium (137-145) mmol/L Carbon Dioxide (22-30) mmol/L BUN (9-20) mg/dL Glucose (74-99) mg/dL Plasma Lactic Acid Raul (0.7-2.0) mmol/L Calcium (8.4-10.2) mg/dL Magnesium (1.6-2.3) mg/dL Total Bilirubin (0.2-1.3) mg/dL AST (17-59) U/L ALT (4-49) U/L Alkaline Phosphatase (38-126) U/L Total Protein (6.3-8.2) g/dL Albumin (3.5-5.0) g/dL Ur Specific [place] >1.050 H (1.001-1.035) Urine Protein Trace H (Negative) Urine Glucose (UA) 4+ H (Negative) Urine Bilirubin 1+ H (Negative) Assessment and Plan Time with Patient: Greater than 30
[2024-05-12 13:44] LABS: ALT 53 U/L (4-49); AST 269 U/L (17-59); African American GFR (CKD) >90 (>60 ml/min/1.73 sqM); Alkaline Phosphatase 719 U/L (38-126); Anion Gap 8 mmol/L; Blood Urea Nitrogen 3 mg/dL (9-20); Calcium 7.4 mg/dL (8.4-10.2); Carbon Dioxide 23 mmol/L (22-30); Chloride 103 mmol/L (98-107); Glucose 114 mg/dL (74-99); Non-African American GFR(CKD) >90 (>60 ml/min/1.73 sqM); Potassium 3.5 mmol/L (3.5-5.1); Sodium 134 mmol/L (137-145); Total Bilirubin 6.4 mg/dL (0.2-1.3); Total Protein 7.5 g/dL (6.3-8.2)
--- NOTE | 2024-05-12 13:54 | P.HPIM ---
History of Present Illness Patient is a pleasant 75-year-old male came in with complaints of mid abdominal pain in the mid abdomen and in the suprapubic area which was 10 x 10 sharp in nature KUB x-ray and CT of the abdomen did not show any significant abnormality except for CT of the abdomen pelvis showed an incidental finding of fluid collection in the right hip and it was suspicious for septic arthritis. Patient does not have any fever does have leukocytosis. Patient's abdominal pain completely resolved. Patient is a thin built male. Patient has a history of severe osteoarthritis unable to undergo any surgery because of his nutritional status. Patient has some pain which is chronic in the right. Nothing new there is no limitation in active or passive movements of the right hip REVIEW OF SYSTEMS: All other systems are negative except those mentioned in the HPI PHYSICAL EXAMINATION: GENERAL: The patient is alert and oriented x3, not in any acute distress. Well developed, well nourished. HEENT: Pupils are round and equally reacting to light. EOMI. No scleral icterus. No conjunctival pallor. Normocephalic, atraumatic. No pharyngeal erythema. No thyromegaly. CARDIOVASCULAR: S1 and S2 present. No murmurs, rubs, or gallops. PULMONARY: Chest is clear to auscultation, no wheezing or crackles. ABDOMEN: Soft, nontender, nondistended, normoactive bowel sounds. No palpable organomegaly. MUSCULOSKELETAL: As mentioned in the HPI EXTREMITIES: No cyanosis, clubbing, or pedal edema. NEUROLOGICAL: Gross neurological examination did not reveal any focal deficits. SKIN: No rashes. Assessment and plan -Abdominal pain: Etiology is not clear for the history abdominal pain resolved patient may have passed a gallstone which can explain his leukocytosis as well.. -Incidental finding of fluid in the right hip can be osteoarthritis but since there is a concern of septic arthritis although clinically patient does not have any symptoms of septic arthritis orthopedic surgery will evaluate the patient if cleared by orthopedic surgery patient will be discharged today -Leukocytosis etiology is not clear Reactive may be a passed kidney stone his abdominal pain resolved Mild protein-calorie malnutrition DVT prophylaxis: Early ambulation Past Medical History Past Medical History: Hypertension, Liver Disease Additional Past Medical History / Comment(s): Nephrolithiasis, ETOH abuse with past withdrawal tremors, past alcoholic hepatitis/acute severe kidney injury/hyperphosphatemia/acute metabolic encephalopathy from renal failure. History of Any Multi-Drug Resistant Organisms: None Reported Past Surgical History: Cholecystectomy, Tonsillectomy Past Anesthesia/Blood Transfusion Reactions: No Reported Reaction Past Psychological History: No Psychological Hx Reported Smoking Status: Current every day smoker Past Alcohol Use History: Abuse, Daily Past Drug Use History: Marijuana - Past Family History Father Family Medical History: Myocardial Infarction ([place]) Mother Family Medical History: Hypertension Additional Family Medical History / Comment(s): heart stent Medications and Allergies Home Medications Medication Instructions Recorded Confirmed Type Thiamine [Vitamin B-1] 100 mg PO DAILY #30 tab 09/30/23 05/11/24 Rx Folic Acid 1 mg PO DAILY 02/20/24 05/11/24 History Dapagliflozin Propanediol [Farxiga] 10 mg PO DAILY 03/08/24 05/11/24 History Insulin Lispro [Insulin Lispro See Protocol SQ ACHS 03/08/24 05/11/24 History Kwikpen U-100] Spironolactone [Aldactone] 50 mg PO BID #120 tab 03/29/24 05/11/24 Rx Ferrous Sulfate [Feosol] 325 mg PO DAILY 05/11/24 05/11/24 History lisinopriL [Zestril] 20 mg PO DAILY 05/11/24 05/11/24 History Allergies Allergy/AdvReac Type Severity Reaction Status Date / Time No Known Allergies Allergy Verified 05/11/24 16:16 Physical Exam Vitals: Vital Signs Temp Pulse Resp BP Pulse Ox 05/12/24 12:51 95 22 135/75 95 05/12/24 10:36 96 20 131/83 95 05/12/24 08:06 98.2 F 111 H 20 131/76 98 05/12/24 06:23 98 17 129/79 95 05/11/24 23:00 95 17 143/83 96 05/11/24 16:36 104 H 20 146/79 97 Results CBC & Chem 7: 05/11/24 12:43 05/12/24 13:19 Labs: Abnormal Lab Results - Last 24 Hours (Table) 05/11/24 05/11/24 05/12/24 Range/Units 12:43 16:54 13:19 Sodium 134 L (137-145) mmol/L BUN 3 L (9-20) mg/dL Glucose 114 H (74-99) mg/dL Plasma Lactic Acid Raul 2.9 H* (0.7-2.0) mmol/L Calcium 7.4 L (8.4-10.2) mg/dL Total Bilirubin 6.4 H (0.2-1.3) mg/dL AST 269 H (17-59) U/L ALT 53 H (4-49) U/L Alkaline Phosphatase 719 H (38-126) U/L Albumin 3.0 L (3.5-5.0) g/dL Ur Specific Ola >1.050 H (1.001-1.035) Urine Protein Trace H (Negative) Urine Glucose (UA) 4+ H (Negative) Urine Bilirubin 1+ H (Negative)
[2024-05-12] MEDS: LACTULOSE 20 GM/30 ML CUP PO ONE (17:04)
[2024-05-12 17:10] LABS: Glucose,Whole Blood 121 mg/dL (70-110)
[2024-05-12 20:20] LABS: Glucose,Whole Blood 117 mg/dL (70-110)
[2024-05-12] MEDS: KETOROLAC 15 MG/ML 1 ML VIAL IVP PRN (21:10)
[2024-05-12] MEDS: PANTOPRAZOLE 40 MG/10 ML VIAL IVP SCH (21:46)
[2024-05-13 06:59] LABS: Glucose,Whole Blood 107 mg/dL (70-110)
[2024-05-13 09:29] LABS: ALT 44 U/L (10-49); AST 209 U/L (14-35); Albumin 2.8 g/dL (3.8-4.9); Albumin/Globulin Ratio 0.67 Ratio (1.60-3.17); Alkaline Phosphatase 598 U/L (41-126); BUN/Creat Ratio 4.56 Ratio (12.00-20.00); Blood Urea Nitrogen 4.1 mg/dL (9.0-27.0); Calcium 7.7 mg/dL (8.7-10.3); Carbon Dioxide 23.5 mmol/L (21.6-31.8); Chloride 102 mmol/L (96-109); Globulin 4.2 g/dL (1.6-3.3); Glucose 98 mg/dL (70-110); Potassium 3.3 mmol/L (3.5-5.5); Sodium 135 mmol/L (135-145); Total Bilirubin 5.9 mg/dL (0.3-1.2)
[2024-05-13 11:52] LABS: Glucose,Whole Blood 124 mg/dL (70-110)
[2024-05-13] MEDS: POTASSIUM CHLORIDE ER 10 MEQ TAB.ER.PRT PO SCH (12:05)
--- NOTE | 2024-05-13 14:31 | P.PN ---
Subjective Progress Note Date: 05/13/24 33-year-old male with longstanding history of chronic alcoholism, hypertension, hemorrhoids, nicotine and marijuana use. Patient comes into the hospital secondary to abdominal discomfort that started a couple days ago. The pain is generalized. Patient states that he was sober for a bit he was having hiccups at home and his mother states that he used vinegar and pickle juice to treat the hiccups and because of the "alcohol" content this has caused him to want to begin drinking again. In order to attempt to stop drinking alcohol he had a one year old prescription of antabuse that he can began taking over the last couple days but he proceeded to vomit and get really sick off of it. He does state th at he was drinking alcohol at the same time as this he drinks about 1 pint per day last drink was 2 days ago. He also reports issues with the abdominal hernia states surgery wont' repair it until his liver issues resolve. He was recently admitted to the hospital back in March discharged on 03/29, he was treated for left scrotal abscess and left groin cellulitis had an I and D of this. He also had bleeding per rectum due to hemorrhoids which was treated with the annusol suppositories. During that admission he underwent diagnostic and therapeutic paracentesis with 3.7 L of fluid removed. Ascites fluid culture did not grow any bacteria. He was discharged on oral antibiotics and recommended for GI follow up. He returns after continuing to drink alcohol daily with abdominal pain. Abdominal pelvis CT reveals hepatocellular disease with hepatomegaly fatty infiltration and cirrhosis. There are findings of portal hypertension again with splenomegaly and varices/collaterals and moderate to large amount of ascites. There is a nonobstructive right renal punctuate calculus. Blood work on admission reveals a white blood cell count of 10.0, MCV of 107.6, hemoglobin 0.1, INR of 2.0, sodium 136, BUN of 3 creatinine of 0.74, lactic acid of 2.9, magnesium 1.3, total bili of 5.4, AST of 350 ALT of 59, alk phos 823. Amylase and lipase are within normal limits. His urinalysis is not overly suggestive of infection and his serum alcohol level is less than 10. Patient was given IV magnesium supplement, antiemetics and IV pain medication. Started on IV ativan jeaniewa protocol. IR unavailable until Tuesday to perform paracentesis this admission. 05/13/2024 Patient is eval obtain follow-up in the medical floor continues to report significant abdominal pain having reports of dark stool he states that it is almost black like denies any recent use of Pepto-Bismol he is maintained on oral iron daily. We did consult general surgery for evaluation. He continues on IV Protonix. Possible paracentesis tomorrow when IR is back. Started on IV Lasix 20 mg every 12 hours and will continue potassium 3.3, sodium 135, BUN of 40.1, creatinine 0.9, bilirubin 5.9, AST 209, ALT 44, alk phos 598. Did have a positive occult. REVIEW OF SYSTEMS: CONSTITUTIONAL: No fever, no malaise, no fatigue. HEENT: No recent visual problems or hearing problems. Denied any sore throat. CARDIOVASCULAR: No chest pain, orthopnea, PND, no palpitations, no syncope. PULMONARY: No shortness of breath, no cough, no hemoptysis. GASTROINTESTINAL: No diarrhea, no vomiting, Reports abdominal pain and nausea. NEUROLOGICAL: No headaches, no weakness, no numbness. PHYSICAL EXAMINATION: GENERAL: The patient is alert and oriented x3, not in any acute distress. Well developed, well nourished. HEENT: Pupils are round and equally reacting to light. EOMI. No scleral icterus. No conjunctival pallor. Normocephalic, atraumatic. No pharyngeal erythema. No thyromegaly. CARDIOVASCULAR: S1 and S2 present. No murmurs, rubs, or gallops. PULMONARY: Chest is clear to auscultation, no wheezing or crackles. ABDOMEN: Soft, nontender, distended, round, normoactive bowel sounds. No palpable organomegaly. MUSCULOSKELETAL: No joint swelling or deformity. EXTREMITIES: No cyanosis, clubbing, or pedal edema. NEUROLOGICAL: Gross neurological examination did not reveal any focal deficits. SKIN: No rashes. Assessment and Plan Abdominal pain likely from the abdominal ascites with moderate to large amount of fluid on the abdominal CT. IR not available until tuesday to perform thoracentesis. Reports of dark stool with positive occult concern for upper GI bleeding will consult general surgery for evaluation continue on Protonix Alcohol withdrawal and alcohol use disorder Alcoholic liver cirrhosis and portal hypertension Macrocytic anemia likely from chronic alcoholism Lactic acidosis likely from vomiting normalized now Hypomagnesemia from alcoholism Transaminitis and hyperbilirubinemia from liver cirrhosis and alcoholism Diabetes Mellitus type 2 Hx hypertension Chronic and ongoing nicotine use Marijuana use GI prophylaxis Full Code Plan Continue on home dose of aldactone and add IV lasix 20 mg IV q12 hour Pending paracentesis Pain management with IV morphine Continue IV ativan ciwa protocol Continue on lisinopril Continue accuchecks ACHS and sliding scale insulin and farxiga. Check ammonia level Repeat CMP The impression and plan of care has been dictated by Racheal Marroquin, Nurse Practitioner as directed. Dr. Asim MD I have performed a history and physical examination and medical decision making of this patient, discussed the same with the dictator, and agree with the dictators assessment and plan as written, documented as a scribe. Based on total visit time, I have performed more than 50% of this visit. Objective - Vital Signs Vital signs: Vital Signs Temp 98.3 F 05/13/24 08:00 Pulse 90 05/13/24 08:00 Resp 16 05/13/24 08:00 BP 115/69 05/13/24 08:00 Pulse Ox 97 05/13/24 08:00 FiO2 Intake & Output 05/12/24 05/13/24 05/13/24 18:59 06:59 18:59 Weight 83.915 kg Other: Voiding Method Toilet - Labs CBC & Chem 7: 05/11/24 12:43 05/13/24 03:22 Labs: Abnormal Lab Results - Last 24 Hours (Table) 05/12/24 05/12/24 05/13/24 Range/Units 17:08 20:18 03:22 Potassium 3.3 L (3.5-5.5) mmol/L BUN 4.1 L (9.0-27.0) mg/dL BUN/Creatinine Ratio 4.56 L (12.00-20.00) Ratio POC Glucose (mg/dL) 121 H 117 H (70-110) mg/dL Calcium 7.7 L (8.7-10.3) mg/dL Total Bilirubin 5.9 H (0.3-1.2) mg/dL AST 209 H (14-35) U/L Alkaline Phosphatase 598 H (41-126) U/L Albumin 2.8 L (3.8-4.9) g/dL Globulin 4.2 H (1.6-3.3) g/dL Albumin/Globulin Ratio 0.67 L (1.60-3.17) Ratio 05/13/24 Range/Units 11:51 Potassium (3.5-5.5) mmol/L BUN (9.0-27.0) mg/dL BUN/Creatinine Ratio (12.00-20.00) Ratio POC Glucose (mg/dL) 124 H (70-110) mg/dL Calcium (8.7-10.3) mg/dL Total Bilirubin (0.3-1.2) mg/dL AST (14-35) U/L Alkaline Phosphatase (41-126) U/L Albumin (3.8-4.9) g/dL Globulin (1.6-3.3) g/dL Albumin/Globulin Ratio (1.60-3.17) Ratio Assessment and Plan Time with Patient: Less than 30
--- NOTE | 2024-05-13 16:22 | P.GSCN ---
History of Present Illness Consult date: 05/13/24 History of present illness: CHIEF COMPLAINT: GI bleed with anemia HISTORY OF PRESENT ILLNESS: The patient is a 33-year-old gentleman who has alcohol abuse reports 5-day history of intractable nausea and vomiting. He has pre-existing history of cirrhosis of the liver with abdominal ascites. Denies any gross blood however patient noted to have blood in stools with dark stools. He also reports troubles with pain of the lower abdomen due to intractable retching. PAST MEDICAL HISTORY: See list and reviewed PAST SURGICAL HISTORY: See list and reviewed MEDICATIONS: See list and reviewed ALLERGIES: See list and reviewed SOCIAL HISTORY: See list and reviewed FAMILY HISTORY: See list and reviewed REVIEW OF ORGAN SYSTEMS: CONSTITUTIONAL: No fevers or chills. No recent weight loss. EYES: Denies any trouble with vision. No glasses. HEENT: No difficulties with hearing. No nosebleeds. No difficulty swallowing. RESPIRATORY: Denies pneumonia. Denies any troubles with breathing or dyspnea on exertion. CARDIOVASCULAR: Denies any chest pain, palpitations, or recent heart attacks. GASTROINTESTINAL: Has cirrhosis of the liver with gastroesophageal reflux disease. History of GI bleed. GENITOURINARY: Denies any blood in urine or increased urinary frequency. NEUROLOGICAL: Denies any numbness or tingling along the distal extremities. No seizure disorders or headaches. MUSCULOSKELETAL: Denies any back pain, stiffness or joint arthritis. SKIN: No current skin cancer. No rash. PSYCHIATRIC: Denies current depression or suicidal thoughts. ENDOCRINE: Denies current thyroid disorders. Denies any blood sugar glucose intolerance. HEME/LYMPHATIC: Denies any lumps and bumps around the neck. No recent deep venous thrombosis. ALLERGY/IMMUNOLOGY: No immunoglobulin therapy. No immune deficiencies. BREAST: Denies current breast lumps, pain or nipple discharge. PHYSICAL EXAM: VITALS: Reviewed CONSTITUTIONAL: Well developed and in no acute distress. EYES: Conjuctivae without sclera icterus. Extraocular movements grossly intact. HEAD, EARS, NOSE, THROAT: Moist buccal mucosa. Head is atraumatic, normocephalic. Hears conversational speech. No nasal drainage. NECK: Supple. No JV distention. No thyroidomegaly. RESPIRATORY: Non-labored respirations and equal bilateral excursions. No gross wheezes. CARDIOVASCULAR: Palpable 2+ radial pulses. ABDOMEN: Obese. Abdominal ascites. Abdominal striae. LYMPH: No neck lymphadenopathy. MUSCULOSKELETAL: No clubbing cyanosis or edema SKIN: Warm and well perfused with good skin turgor. NEUROLOGIC: Cranial nerves II through XII grossly intact. No focal or lateralizing signs. PSYCH: Appropriate affect. Alert and oriented to person, place and time. Displays appropriate insight. CLINCAL LABS: Reviewed. Hemoglobin low 10.1. Prior hemoglobin on past admission 12.0, anemia. Stool occult positive. IMAGING: Independently reviewed. CT of the abdomen pelvis independent review demonstrates large hepatomegaly with cirrhosis including splenomegaly. Presence of portal venous hypotension. Abdominal ascites noted. This is my independent interpretation. RADIOLOGY: Report reviewed of CT abdomen pelvis demonstrates nonobstructive right renal calculi. Findings of portal venous hypertension. RECORDS: previous old records reviewed of past hospitalization March 2024 with alcohol withdrawal. ASSESSMENT: 1. Abdominal pain due to intractable nausea and vomiting 2. Acute on chronic alcohol withdrawal 3. Gastrointestinal hemorrhage with positive stool occult 4. Portal venous hypertension with splenomegaly and cirrhosis 5. Cirrhosis with ascites 6. Alcohol abuse disorder PLAN: 1. Gastroenterology team not available until May 21. 2. Patient high risk for esophageal varices including bleeding. Will proceed with upper endoscopy for diagnosis. Should he have active bleeding, transfer to tertiary care center for [facility] and esophageal banding described. 3. Alcohol withdrawal protocol initiated. Thank you for this kind consultation. Past Medical History Past Medical History: Hypertension, Liver Disease Additional Past Medical History / Comment(s): Nephrolithiasis, ETOH abuse with past withdrawal tremors, past alcoholic hepatitis/acute severe kidney injury/hyperphosphatemia/acute metabolic encephalopathy from renal failure. History of Any Multi-Drug Resistant Organisms: None Reported Past Surgical History: Cholecystectomy, Tonsillectomy Past Anesthesia/Blood Transfusion Reactions: No Reported Reaction Past Psychological History: No Psychological Hx Reported Additional Psychological History / Comment(s): Pt resides with his mother. He is independent. Smoking Status: Current every day smoker Past Alcohol Use History: Abuse, Daily Additional Past Alcohol Use History / Comment(s): Pt started smoking as a teen and is a ppd smoker. He states he was drinking a pint of vodka a day prior to getting his gallbladder out but since then he drinks more occationally. Past Drug Use History: Marijuana Additional Drug Use History / Comment(s): Pt states he smokes 1 joint every day - Past Family History Father Family Medical History: Myocardial Infarction ([place]) Mother Family Medical History: Hypertension Additional Family Medical History / Comment(s): heart stent Medications and Allergies Home Medications Medication Instructions Recorded Confirmed Type Thiamine [Vitamin B-1] 100 mg PO DAILY #30 tab 09/30/23 05/11/24 Rx Folic Acid 1 mg PO DAILY 02/20/24 05/11/24 History Dapagliflozin Propanediol [Farxiga] 10 mg PO DAILY 03/08/24 05/11/24 History Insulin Lispro [Insulin Lispro See Protocol SQ ACHS 03/08/24 05/11/24 History Kwikpen U-100] Spironolactone [Aldactone] 50 mg PO BID #120 tab 03/29/24 05/11/24 Rx Ferrous Sulfate [Feosol] 325 mg PO DAILY 05/11/24 05/11/24 History lisinopriL [Zestril] 20 mg PO DAILY 05/11/24 05/11/24 History Allergies Allergy/AdvReac Type Severity Reaction Status Date / Time No Known Allergies Allergy Verified 05/11/24 16:16 Surgical - Exam Vital Signs Temp Pulse Resp BP Pulse Ox 98.6 F 140 H 20 136/75 100 05/11/24 12:13 05/11/24 12:13 05/11/24 12:13 05/11/24 12:13 05/11/24 12:13 Results - Labs 05/11/24 12:43 05/13/24 03:22 Abnormal Lab Results - Last 24 Hours (Table) 05/12/24 05/12/24 05/13/24 Range/Units 17:08 20:18 03:22 Potassium 3.3 L (3.5-5.5) mmol/L BUN 4.1 L (9.0-27.0) mg/dL BUN/Creatinine Ratio 4.56 L (12.00-20.00) Ratio POC Glucose (mg/dL) 121 H 117 H (70-110) mg/dL Calcium 7.7 L (8.7-10.3) mg/dL Total Bilirubin 5.9 H (0.3-1.2) mg/dL AST 209 H (14-35) U/L Alkaline Phosphatase 598 H (41-126) U/L Albumin 2.8 L (3.8-4.9) g/dL Globulin 4.2 H (1.6-3.3) g/dL Albumin/Globulin Ratio 0.67 L (1.60-3.17) Ratio 05/13/24 Range/Units 11:51 Potassium (3.5-5.5) mmol/L BUN (9.0-27.0) mg/dL BUN/Creatinine Ratio (12.00-20.00) Ratio POC Glucose (mg/dL) 124 H (70-110) mg/dL Calcium (8.7-10.3) mg/dL Total Bilirubin (0.3-1.2) mg/dL AST (14-35) U/L Alkaline Phosphatase (41-126) U/L Albumin (3.8-4.9) g/dL Globulin (1.6-3.3) g/dL Albumin/Globulin Ratio (1.60-3.17) Ratio Diabetes panel 05/13/24 Range/Units 03:22 Sodium 135 (135-145) mmol/L Potassium 3.3 L (3.5-5.5) mmol/L Chloride 102 (96-109) mmol/L Carbon Dioxide 23.5 (21.6-31.8) mmol/L BUN 4.1 L (9.0-27.0) mg/dL Creatinine 0.9 (0.6-1.5) mg/dL Glucose 98 (70-110) mg/dL Calcium 7.7 L (8.7-10.3) mg/dL AST 209 H (14-35) U/L ALT 44 (10-49) U/L Alkaline Phosphatase 598 H (41-126) U/L Total Protein 7.0 (6.2-8.2) g/dL Albumin 2.8 L (3.8-4.9) g/dL Calcium panel 05/13/24 Range/Units 03:22 Calcium 7.7 L (8.7-10.3) mg/dL Albumin 2.8 L (3.8-4.9) g/dL Pituitary panel 05/13/24 Range/Units 03:22 Sodium 135 (135-145) mmol/L Potassium 3.3 L (3.5-5.5) mmol/L Chloride 102 (96-109) mmol/L Carbon Dioxide 23.5 (21.6-31.8) mmol/L BUN 4.1 L (9.0-27.0) mg/dL Creatinine 0.9 (0.6-1.5) mg/dL Glucose 98 (70-110) mg/dL Calcium 7.7 L (8.7-10.3) mg/dL Adrenal panel 05/13/24 Range/Units 03:22 Sodium 135 (135-145) mmol/L Potassium 3.3 L (3.5-5.5) mmol/L Chloride 102 (96-109) mmol/L Carbon Dioxide 23.5 (21.6-31.8) mmol/L BUN 4.1 L (9.0-27.0) mg/dL Creatinine 0.9 (0.6-1.5) mg/dL Glucose 98 (70-110) mg/dL Calcium 7.7 L (8.7-10.3) mg/dL Total Bilirubin 5.9 H (0.3-1.2) mg/dL AST 209 H (14-35) U/L ALT 44 (10-49) U/L Alkaline Phosphatase 598 H (41-126) U/L Total Protein 7.0 (6.2-8.2) g/dL Albumin 2.8 L (3.8-4.9) g/dL
[2024-05-13 16:49] LABS: Glucose,Whole Blood 95 mg/dL (70-110)
[2024-05-13 20:08] LABS: Glucose,Whole Blood 108 mg/dL (70-110)
[2024-05-14 06:13] LABS: Glucose,Whole Blood 97 mg/dL (70-110)
[2024-05-14 07:54] VITALS: RESP 18; TEMP 98.2
[2024-05-14] MEDS: POTASSIUM CHLORIDE ER 20 MEQ TAB.ER PO SCH (08:03)
[2024-05-14 10:43] LABS: Basophils % (A) 0 %; Eosinophils # (A) 0.1 k/uL (0-0.7); Eosinophils % (A) 1 %; HCT 32.1 % (39.0-53.0); HGB 9.8 gm/dL (13.0-17.5); Hypochromasia Marked; Lymphocytes # (A) 1.3 k/uL (1.0-4.8); Lymphocytes % (A) 16 %; MCH 34.2 pg (25.0-35.0); MCHC 30.6 g/dL (31.0-37.0); MCV 111.8 fL (80.0-100.0); Macrocytosis Marked; Mean Platelet Volume 8.2; Monocytes # (A) 0.7 k/uL (0-1.0); Monocytes % (A) 8 %; Neutrophils # (A) 5.7 k/uL (1.3-7.7); Neutrophils % (A) 71 %; Platelet Count 135 k/uL (150-450); RBC 2.87 m/uL (4.30-5.90)
[2024-05-14] MEDS: NICOTINE 21MG/24HR PATCH TRANSDERM SCH (10:54)
[2024-05-14 10:59] LABS: ALT 46 U/L (4-49); AST 201 U/L (17-59); African American GFR (CKD) >90 (>60 ml/min/1.73 sqM); Albumin/Globulin Ratio 0.7; Alkaline Phosphatase 557 U/L (38-126); Anion Gap 5 mmol/L; Blood Urea Nitrogen 3 mg/dL (9-20); Calcium 7.5 mg/dL (8.4-10.2); Carbon Dioxide 25 mmol/L (22-30); Chloride 103 mmol/L (98-107); Globulin 4.4 g/dL; Glucose 98 mg/dL (74-99); Magnesium 1.5 mg/dL (1.6-2.3); Non-African American GFR(CKD) >90 (>60 ml/min/1.73 sqM); Potassium 3.5 mmol/L (3.5-5.1); Sodium 133 mmol/L (137-145); Total Bilirubin 7.7 mg/dL (0.2-1.3); Total Protein 7.4 g/dL (6.3-8.2)
[2024-05-14 11:37] LABS: Target Cells Present
[2024-05-14 11:45] LABS: Glucose,Whole Blood 92 mg/dL (70-110)
[2024-05-14] MEDS ORDERED: LIDOCAINE 1% INJ 10MG/ML (20 ML MDV) ONE (12:20)
[2024-05-14] MEDS ORDERED: PROPOFOL 10 MG/ML 20 ML VIAL IV ONE (12:20)
[2024-05-14] MEDS: SODIUM CHLORIDE 0.9% 500 ML 500 ML IV ONE (12:21)
--- NOTE | 2024-05-14 12:50 | P.PCN ---
Date of Procedure: 05/14/24 Description of Procedure: PREOPERATIVE DIAGNOSIS: Acute gastrointestinal bleeding Positive stool occult blood Cirrhosis of the liver POSTOPERATIVE DIAGNOSIS: Acute gastrointestinal bleeding Positive stool occult blood Cirrhosis of the liver OPERATION: Esophagogastroduodenoscopy SURGEON: Caitlin Pinzon MD ANESTHESIA: MAC. INDICATIONS: The patient is a 33-year-old male who presents with gastrointestinal bleeding including cirrhosis of the liver. Benefits and risks of the procedure were described. Informed consent was obtained. DESCRIPTION: The patient was brought into the endoscopy suite and laid in the left lateral decubitus position. An Olympus gastroscope was passed along the posterior o ropharynx down to the distal esophagus where the squamocolumnar junction was encountered at 40 cm from the incisors. The stomach was entered and no bile reflux was found. Additional findings are listed below. The first through third portion of the duodenum was examined and unremarkable. Retroflexion of the scope confirmed Hill grade 2 lower esophageal valve. The squamocolumnar junction demonstrated LA grade B erosive esophagitis. The stomach was desufflated. The patient tolerated the procedure well. FINDINGS: Squamocolumnar junction 40 cm from the incisors. Diaphragmatic hiatus at 40 cm. No esophageal varices No acute bleeding gastritis or duodenitis Hill grade 2 lower esophageal valve. LA grade A erosive esophagitis. No active duodenitis. No stigmata of bleeding RECOMMENDATIONS: 1. Diet as tolerated 2. Upper endoscopy as needed
[2024-05-14 15:56] VITALS: BP 110/72; PULSE 96
[2024-05-14] MEDS: MAGNESIUM SULFATE-D5W PMX 1 GM in DEXTROSE/WATER 1 100ML.BAG IVPB SCH (16:16)
[2024-05-14 16:28] LABS: Glucose,Whole Blood 114 mg/dL (70-110)
--- NOTE | 2024-05-14 16:37 | US ---
EXAMINATION TYPE: US paracentesis abd w/image DATE OF EXAM: 05/14/2024 2:37 PM COMPARISON: prior paracentesis. CLINICAL INDICATION:Male, 33 years old with history of ascites; , ascites ATTENDING: Dr. Gurdeep Nance PROCEDURE: Informed consent was obtained. The risks of the procedure were extensively explained incl uding risk of damage to surrounding bowel with perforation and need for additional procedures. Proced ure was performed in the ultrasound procedure suite. Ultrasound imaging of the abdomen demonstrate as citic fluid. An appropriate access site was localized to the right lower abdomen. Timeout was taken p er protocol. The skin was prepped and draped in the usual sterile fashion and then locally anesthetiz ed with 1% lidocaine. The peritoneal cavity was then accessed via a 5-Sami one-step needle/cathete r. Approximately 4150 mL of clear straw-colored fluid was obtained. Postprocedural imaging of the a bdomen demonstrate a minimal amount of abdominal fluid. Patient tolerated procedure well without immediate complication. Hemostasis at the procedural site w as obtained with a sterile bandage placed. The patient was monitored in the holding area following th e procedure and was subsequently discharged in stable condition. IMPRESSION: Ultrasound guided paracentesis, with approximately 4150 mL of clear straw-colored fluid drained. No immediate complications were evident. [facility], , 05/14/2024 4:34 PM
--- NOTE | 2024-05-14 21:15 | P.PN ---
Subjective Progress Note Date: 05/14/24 CHIEF COMPLAINT: GI bleed HISTORY OF PRESENT ILLNESS: The patient is a 33-year-old male presents with anemia including positive occult blood stool. An upper endoscopy today. Resting comfortably. No reports of bleeding after endoscopy. ROS: No reports of nausea and vomiting. No fevers or chills. No new chest pain. No productive sputum PHYSICAL EXAM: VITAL SIGNS: Reviewed CONSTITUTIONAL: Well developed and in no acute distress. EYES: Conjuctivae without sclera icterus. Extraocular movements grossly intact. HEAD, EARS, NOSE, THROAT: Moist buccal mucosa. Head is atraumatic, normocephali c. Hears conversational speech. No nasal drainage. RESPIRATORY: Non-labored respirations and equal bilateral excursions. CARDIOVASCULAR: Palpable 2+ radial pulses. ABDOMEN: No peritonitis. MUSCULOSKELETAL: No gross deformity of the lower extremities noted. No clubbing. No cyanosis. SKIN: Good skin turgor. Well perfused. NEUROLOGIC: Cranial nerves II through XII grossly intact. No focal or lateralizing signs. PSYCH: Appropriate affect. Alert and oriented to person, place and time. CLINICAL LABS: Reviewed. Hemoglobin down to 10.1-9.8. Magnesium low 1.5, hypomagnesia ASSESSMENT: 1. GI bleed with anemia 2. Cirrhosis of the liver 3. Hypomagnesia PLAN: 1. Clinically, upper endoscopy demonstrated no esophageal varices. Patient has pre-existing chronic anemia. 2. Diet as tolerated. 3. Alcohol cessation described Objective - Vital Signs Vital signs: Vital Signs Temp 98.2 F 05/14/24 07:20 Pulse 96 05/14/24 15:15 Resp 18 05/14/24 15:15 BP 110/72 05/14/24 15:15 Pulse Ox 98 05/14/24 15:15 FiO2 Intake & Output 05/14/24 05/14/24 05/15/24 06:59 18:59 06:59 Intake Total 100 Balance 100 Weight 85.3 kg Intake: IV 100 Other: Voiding Method Toilet # Voids 7 3 - Labs CBC & Chem 7: 05/14/24 10:10 05/14/24 10:10 Labs: Abnormal Lab Results - Last 24 Hours (Table) 05/14/24 05/14/24 05/14/24 Range/Units 10:10 10:10 16:27 RBC 2.87 L (4.30-5.90) m/uL Hgb 9.8 L (13.0-17.5) gm/dL Hct 32.1 L (39.0-53.0) % MCV 111.8 H (80.0-100.0) fL MCHC 30.6 L (31.0-37.0) g/dL Plt Count 135 L (150-450) k/uL Macrocytosis Marked A Sodium 133 L (137-145) mmol/L BUN 3 L (9-20) mg/dL POC Glucose (mg/dL) 114 H (70-110) mg/dL Calcium 7.5 L (8.4-10.2) mg/dL Magnesium 1.5 L (1.6-2.3) mg/dL Total Bilirubin 7.7 H (0.2-1.3) mg/dL AST 201 H (17-59) U/L Alkaline Phosphatase 557 H (38-126) U/L Albumin 3.0 L (3.5-5.0) g/dL
--- NOTE | 2024-05-17 09:29 | P.DS ---
Providers Date of admission: 05/11/24 16:02 Attending physician: Guillermo Munoz Consults: 05/12/24 18:53 Consult Physician Routine Consulting Provider: Caitlin Pinzon Consult Reason/Comments: dark stools, abdominal pain Do you want consulting provider notified?: Yes Primary care physician: Gabe Flynn [facility] Course: Final Diagnosis Abdominal pain likely from the abdominal ascites with moderate to large amount of fluid on the abdominal CT. IR removed 4.3 Liters of fluid on 05/14 Reports of dark stool with positive occult concern for upper GI bleeding EGD reveals no active bleeding, ulceration or esophageal varices Alcohol withdrawal and alcohol use disorder Alcoholic liver cirrhosis and portal hypertension Macrocytic anemia likely from chronic alcoholism Lactic acidosis likely from vomiting normalized now Hypomagnesemia from alcoholism Transaminitis and hyperbilirubinemia from liver cirrhosis and alcoholism Diabetes Mellitus type 2 Hx hypertension Chronic and ongoing nicotine use Marijuana use Discharge Disposition Patient stable for discharge home. Needs to quit drinking alcohol this was discussed with him in extent. He had EGD and paracentesis. LFTs are improving. D ischarged on protonix daily. Patient should follow up with Dr Brenda Ross with GI on discharge and PCP Dr Gabe Flynn in 2 to 3 days. Repeat CMP. Hospital Course 33-year-old male with longstanding history of chronic alcoholism, hypertension, hemorrhoids, nicotine and marijuana use. Patient comes into the hospital secondary to abdominal discomfort that started a couple days ago. The pain is generalized. Patient states that he was sober for a bit he was having hiccups at home and his mother states that he used vinegar and pickle juice to treat the hiccups and because of the "alcohol" content this has caused him to want to begin drinking again. In order to attempt to stop drinking alcohol he had a one year old prescription of antabuse that he can began taking over the last couple days but he proceeded to vomit and get really sick off of it. He does state that he was drinking alcohol at the same time as this he drinks about 1 pint per day last drink was 2 days ago. He also reports issues with the abdominal hernia states surgery wont' repair it until his liver issues resolve. He was recently admitted to the hospital back in March discharged on 03/29, he was treated for left scrotal abscess and left groin cellulitis had an I and D of this. He also had bleeding per rectum due to hemorrhoids which was treated with the annusol suppositories. During that admission he underwent diagnostic and therapeutic paracentesis with 3.7 L of fluid removed. Ascites fluid culture did not grow any bacteria. He was discharged on oral antibiotics and recommended for GI follow up. He returns after continuing to drink alcohol daily with abdominal pain. Abdominal pelvis CT reveals hepatocellular disease with hepatomegaly fatty infiltration and cirrhosis. There are findings of portal hypertension again with splenomegaly and varices/collaterals and moderate to large amount of ascites. There is a nonobstructive right renal punctuate calculus. Blood work on admission reveals a white blood cell count of 10.0, MCV of 107.6, hemoglobin 0.1, INR of 2.0, sodium 136, BUN of 3 creatinine of 0.74, lactic acid of 2.9, magnesium 1.3, total bili of 5.4, AST of 350 ALT of 59, alk phos 823. Amylase and lipase are within normal limits. His urinalysis is not overly suggestive of infection and his serum alcohol level is less than 10. Patient was given IV magnesium supplement, antiemetics and IV pain medication. He was monitored for the acute alcohol withdrawal and improved not having withdrawal symptoms any longer. He was evaluted by general surgery due to the complaints of Dark stools. Had EGD No esophageal varices and No acute bleeding gastritis or duodenitis. There is LA grade A erosive esophagitis. He has been continued on protonix. He had paracentesis with 4.3 L of fluid removed by intervention radiology. LFTs are improving. He has been counseled extensively on the importance of alcohol cessation. He is discharged home. Please see medication reconciliation for a list of current medications. Thank you for allowing us to participate in the care of this patient. The impression and plan of care has been dictated by Racheal Marroquin, Nurse Practitioner as directed. Dr. Asim MD I have performed a history and physical examination and medical decision making of this patient, discussed the same with the dictator, and agree with the dictators assessment and plan as written, documented as a scribe. Based on total visit time, I have performed more than 50% of this visit. Patient Condition at Discharge: Fair Plan - Discharge Summary New Discharge Prescriptions: New Pantoprazole [Protonix] 40 mg PO DAILY #30 tab Potassium Chloride ER [K-Dur 20] 20 meq PO DAILY #14 tab Multivitamins, Thera [Multivitamin (formulary)] 1 each PO DAILY #30 tab Continue Thiamine [Vitamin B-1] 100 mg PO DAILY #30 tab Dapagliflozin Propanediol [Farxiga] 10 mg PO DAILY lisinopriL [Zestril] 20 mg PO DAILY Folic Acid 1 mg PO DAILY Insulin Lispro [Insulin Lispro Kwikpen U-100] See Protocol SQ ACHS Spironolactone [Aldactone] 50 mg PO BID #120 tab Ferrous Sulfate [Iron (65 MG Elemental)] 325 mg PO DAILY Discharge Medication List Thiamine [Vitamin B-1] 100 mg PO DAILY #30 tab 09/30/23 [Rx] Folic Acid 1 mg PO DAILY 02/20/24 [History] Dapagliflozin Propanediol [Farxiga] 10 mg PO DAILY 03/08/24 [History] Insulin Lispro [Insulin Lispro Kwikpen U-100] See Protocol SQ ACHS 03/08/24 [History] Spironolactone [Aldactone] 50 mg PO BID #120 tab 03/29/24 [Rx] Ferrous Sulfate [Iron (65 MG Elemental)] 325 mg PO DAILY 05/11/24 [History] lisinopriL [Zestril] 20 mg PO DAILY 05/11/24 [History] Multivitamins, Thera [Multivitamin (formulary)] 1 each PO DAILY #30 tab 05/14/24 [Rx] Pantoprazole [Protonix] 40 mg PO DAILY #30 tab 05/14/24 [Rx] Potassium Chloride ER [K-Dur 20] 20 meq PO DAILY #14 tab 05/14/24 [Rx] Follow up Appointment(s)/Referral(s): Ida Ross MD [STAFF PHYSICIAN] - 1 Week (Office is closed at time of discharge. Please call for follow-up appointment.) Gabe Flynn DO [Primary Care Provider] - 1-2 days (Office is close a time of discharge. Please call for follow-up appointment.) Ambulatory/Diagnostic Orders: Comprehensive Metabolic Panel [LAB.AMB] Time Frame: 3 Days, Location: None Selected Activity/Diet/Wound Care/Special Instructions: Scripts are on back printer. Recommend to quit alcohol Follow up with Dr Brenda Ross in the office. Repeat blood work in 2 to 3 days to monitor liver enzymes and bilirubin level. Discharge/Stand Alone Forms: AA Miguelina Osborne, Outpatient Counseling, In Substance Abuse Facilities Discharge Disposition: HOME SELF-CARE
== END 2024-05-14 18:59 | disposition home or self-care (01) | DRG 242 ==
LOC: EC 12:08 → 3SCARD 16:02 → 4SSUR 05-12 14:24
PROVIDERS: ADMIT Internal Medicine; ATTEND Internal Medicine
PROC: 0W9G3ZZ Drainage of Peritoneal Cavity, Percutaneous Approach (ICD-10-PCS; 2024-05-14)
PROC: 0DJ08ZZ Inspection of Upper Intestinal Tract, Via Natural or Artificial Opening Endoscopic (ICD-10-PCS; principal; 2024-05-14 07:50)
DX: K22.11 Ulcer of esophagus with bleeding (principal); I10 Essential (primary) hypertension; K70.31 Alcoholic cirrhosis of liver with ascites; K76.6 Portal hypertension; M19.90 Unspecified osteoarthritis, unspecified site; Z79.84 Long term (current) use of oral hypoglycemic drugs; Z79.899 Other long term (current) drug therapy; Z82.49 Family history of ischemic heart disease and other diseases of the circulatory system; Z87.442 Personal history of urinary calculi; E87.20 Acidosis, unspecified; E83.42 Hypomagnesemia; E44.1 Mild protein-calorie malnutrition; E11.9 Type 2 diabetes mellitus without complications; D53.9 Nutritional anemia, unspecified; D50.0 Iron deficiency anemia secondary to blood loss (chronic); F17.210 Nicotine dependence, cigarettes, uncomplicated; Z68.27 Body mass index [BMI] 27.0-27.9, adult; F10.239 Alcohol dependence with withdrawal, unspecified
CPT/HCPCS: 36415; 43235; 49083; 74177; 80053; 80320; 81003; 82140; 82150; 82272; 82607; 82746; 83036; 83605; 83690; 83735; 85025; 85610; 85730; 96361; 96365; 96372; 96375; 96376; 99285

== ENCOUNTER 2024-05-20 00:12 | Inpatient (IN) | payer OTHER ==
[2024-05-20] MEDS: LORazepam 2 MG/ML INJ IV STA ×2 (01:52→03:33)
[2024-05-20] MEDS: SODIUM CHLORIDE 0.9% 500 ML 500 ML IV STA (01:53)
[2024-05-20 01:57] LABS: ALT 43 U/L (4-49); AST 179 U/L (17-59); African American GFR (CKD) >90 (>60 ml/min/1.73 sqM); Albumin 2.8 g/dL (3.5-5.0); Alkaline Phosphatase 561 U/L (38-126); Amylase 48 U/L (30-110); Anion Gap 9 mmol/L; Blood Urea Nitrogen 4 mg/dL (9-20); Calcium 7.6 mg/dL (8.4-10.2); Carbon Dioxide 19 mmol/L (22-30); Chloride 112 mmol/L (98-107); Glucose 128 mg/dL (74-99); Lipase 170 U/L (23-300); Non-African American GFR(CKD) >90 (>60 ml/min/1.73 sqM); Phosphorus 2.3 mg/dL (2.5-4.5); Potassium 3.7 mmol/L (3.5-5.1); Sodium 140 mmol/L (137-145); Total Bilirubin 7.7 mg/dL (0.2-1.3); Total Protein 7.3 g/dL (6.3-8.2)
[2024-05-20 02:01] LABS: INR 1.9 (<1.2); Prothrombin Time 19.1 sec (10.0-12.5)
[2024-05-20 02:29] LABS: Basophils # (A) 0.1 k/uL (0-0.2); Basophils % (A) 0 %; Eosinophils # (A) 0.2 k/uL (0-0.7); Eosinophils % (A) 1 %; HCT 31.7 % (39.0-53.0); HGB 9.8 gm/dL (13.0-17.5); Hypochromasia Slight; Lymphocytes # (A) 2.9 k/uL (1.0-4.8); Lymphocytes % (A) 20 %; MCH 33.5 pg (25.0-35.0); MCHC 31.1 g/dL (31.0-37.0); MCV 107.6 fL (80.0-100.0); Macrocytosis Marked; Mean Platelet Volume 8.1; Monocytes # (A) 1.3 k/uL (0-1.0); Monocytes % (A) 9 %; Neutrophils # (A) 9.9 k/uL (1.3-7.7); Neutrophils % (A) 67 %; Platelet Count 214 k/uL (150-450); RBC 2.94 m/uL (4.30-5.90); RDW 14.6 % (11.5-15.5); WBC 14.8 k/uL (3.8-10.6)
[2024-05-20 02:58] LABS: Alcohol 291 mg/dL
[2024-05-20] MEDS: NICOTINE 21MG/24HR PATCH TRANSDERM STA (03:03)
[2024-05-20 03:23] LABS: Target Cells Present
[2024-05-20] MEDS: ONDANSETRON 4 MG/2 ML VIAL IVP STA (03:33)
--- NOTE | 2024-05-20 05:44 | ED ---
Alcohol HPI - General Chief Complaint: Alcohol Stated Complaint: Withdrawls Time Seen by Provider: 05/20/24 01:00 Source: patient Mode of arrival: ambulatory Limitations: no limitations - History of Present Illness Initial Comments: Patient is a 33-year-old man who presents with complaint that he believes he is withdrawing from alcohol. The patient states that he has been drinking about a pint of alcohol per day. He states he knows that he needs to quit because he has been diagnosed with cirrhosis. Patient states last week he had paracentesis. Patient states that when he stops drinking he gets very tremulous and sometimes has seizures. MD Complaint: alcohol withdrawal Last Drink: just SENIOR MEDIA DIRECTOR -: hour(s) Previous Visits for Alcohol Intoxication?: Yes Recent Trauma: No Associated Symptoms: nausea, vomiting, tremors Treatments Prior to Arrival: none Chronic Alcohol Use: Yes - Related Data Home Medications Medication Instructions Recorded Confirmed Folic Acid 1 mg PO DAILY 02/20/24 05/20/24 Dapagliflozin Propanediol [Farxiga] 10 mg PO DAILY 03/08/24 05/20/24 Insulin Lispro [Insulin Lispro See Protocol SQ ACHS PRN 03/08/24 05/20/24 Milo U-100] Ferrous Sulfate [Iron (65 MG 325 mg PO DAILY 05/11/24 05/20/24 Elemental)] Multivitamins, Thera [Multivitamin 1 tab PO DAILY 05/20/24 05/20/24 (formulary)] Previous Rx's Medication Instructions Recorded Thiamine [Vitamin B-1] 100 mg PO DAILY #30 tab 09/30/23 Spironolactone [Aldactone] 50 mg PO BID #120 tab 03/29/24 Pantoprazole [Protonix] 40 mg PO DAILY #30 tab 05/14/24 Potassium Chloride ER [K-Dur 20] 20 meq PO DAILY #14 tab 05/14/24 Hydrocortisone Pr Cream 1 applic RECTAL BID #1 each 05/21/24 [Proctosol-Hc 2.5%] Metoprolol Tartrate [Lopressor] 25 mg PO BID #60 tab 05/21/24 Allergies Allergy/AdvReac Type Severity Reaction Status Date / Time No Known Allergies Allergy Verified 05/23/24 00:27 Review of Systems ROS Statement: Those systems with pertinent positive or pertinent negative responses have been documented in the HPI. ROS Other: All systems not noted in ROS Statement are negative. Constitutional: Denies: fever, chills, weakness Eyes: Denies: vision change Respiratory: Denies: cough, dyspnea Cardiovascular: Reports: palpitations. Denies: chest pain, edema, syncope Gastrointestinal: Reports: nausea, vomiting. Denies: diarrhea, constipation, melena, hematochezia Genitourinary: Denies: dysuria, hematuria Musculoskeletal: Denies: back pain Skin: Denies: rash Neurological: Denies: headache, weakness Psychiatric: Reports: anxiety Past Medical History Past Medical History: Hypertension, Liver Disease Additional Past Medical History / Comment(s): Nephrolithiasis, ETOH abuse with past withdrawal tremors, past alcoholic hepatitis/acute severe kidney injury/hyperphosphatemia/acute metabolic encephalopathy from renal failure. History of Any Multi-Drug Resistant Organisms: None Reported Past Surgical History: Cholecystectomy, Tonsillectomy Past Anesthesia/Blood Transfusion Reactions: No Reported Reaction Past Psychological History: No Psychological Hx Reported Smoking Status: Current every day smoker, Vaper Past Alcohol Use History: Abuse, Daily Past Drug Use History: Cocaine, Marijuana - Past Family History Father Family Medical History: Myocardial Infarction ([place]) Mother Family Medical History: Hypertension Additional Family Medical History / Comment(s): heart stent General Exam Limitations: no limitations General appearance: alert, anxious Head exam: Present: atraumatic, normocephalic Eye exam: Present: normal appearance. Absent: scleral icterus, conjunctival injection ENT exam: Present: mucous membranes dry Neck exam: Present: normal inspection Respiratory exam: Present: normal lung sounds bilaterally. Absent: respiratory distress, wheezes, rales, rhonchi, stridor, accessory muscle use Cardiovascular Exam: Present: normal rhythm, tachycardia, normal heart sounds. Absent: systolic murmur, diastolic murmur, rubs, gallop GI/Abdominal exam: Present: soft. Absent: distended, tenderness, guarding, rebound, rigid, mass Extremities exam: Present: normal inspection, normal capillary refill. Absent: pedal edema, calf tenderness Back exam: Present: normal inspection. Absent: CVA tenderness (R), CVA tenderness (L) Neurological exam: Present: alert Skin exam: Present: warm, dry, intact, normal color. Absent: rash Course Vital Signs 05/20/24 05/20/24 05/20/24 00:14 01:35 02:59 Temperature 98.7 F Pulse Rate 112 H 118 H 120 H Respiratory 20 20 22 Rate Blood Pressure 113/55 117/73 95/62 O2 Sat by Pulse 98 97 96 Oximetry 05/20/24 05/20/24 05/20/24 03:35 03:52 05:18 Temperature Pulse Rate 123 H 117 H 109 H Respiratory 22 20 20 Rate Blood Pressure 151/72 98/51 O2 Sat by Pulse 97 86 L 94 L Oximetry 05/20/24 05/20/24 05/20/24 06:06 07:59 09:37 Temperature 98.1 F 98.6 F Pulse Rate 107 H 114 H 113 H Respiratory 16 20 18 Rate Blood Pressure 106/57 112/73 121/75 O2 Sat by Pulse 94 L 95 94 L Oximetry 05/20/24 05/20/24 05/20/24 10:11 11:00 12:00 Temperature Pulse Rate 105 H 105 H 101 H Respiratory 18 17 17 Rate Blood Pressure 106/83 87/46 114/80 O2 Sat by Pulse 96 97 97 Oximetry 05/20/24 15:43 Temperature Pulse Rate 104 H Respiratory 16 Rate Blood Pressure 105/72 O2 Sat by Pulse 97 Oximetry Medical Decision Making - Medical Decision Making Was pt. sent in by a medical professional or institution (, PA, LABORATORY IMMUNOLOGIST, urgent care, hospital, or senior living...) When possible be specific @ -[No] Did you speak to anyone other than the patient for history (EMS, parent, family, police, friend...)? What history was obtained from this source @ -[No] Did you review nursing and triage notes (agree or disagree)? Why? @ -[I reviewed and agree with nursing and triage notes] Were old charts reviewed (outside hosp., previous admission, EMS record, old EKG , old radiological studies, urgent care reports/EKG's, senior living records)? Report findings @ -[No old charts were reviewed] Differential Diagnosis (chest pain, altered mental status, abdominal pain women, abdominal pain men, vaginal bleeding, weakness, fever, dyspnea, syncope, headache, dizziness, GI bleed, back pain, seizure, CVA, palpatations, mental health, musculoskeletal)? @ -[Differential Mental Health Depression, anxiety, bipolar, psychosis, schizophrenia, borderline personality, situational depression, adjustment disorder, behavioral disorder, brain tumor, malingering, substance abuse, encephalopathy, medication reaction, dementia, hypothyroidism, degenerative neurologic disorder, lupus.... This is not meant to be all-inclusive list EKG interpreted by me (3pts min.). @ -[As above] X-rays interpreted by me (1pt min.). @ -[None done] CT interpreted by me (1pt min.). @ -[None done] U/S interpreted by me (1pt. min.). @ -[None done] What testing was considered but not performed or refused? (CT, X-rays, U/S, labs)? Why? @ -[None] What meds were considered but not given or refused? Why? @ -[None] Did you discuss the management of the patient with other professionals ( professionals i.e. , PA, LABORATORY IMMUNOLOGIST, lab, RT, psych nurse, forensic social worker, mail courier, teacher, sustainability officer, assistant case manager)? Give summary @ -[No] Was smoking cessation discussed for >3mins.? @ -[No] Was critical care preformed (if so, how long)? @ -[No] Were there social determinants of health that impacted care today? How? (Homelessness, low income, unemployed, alcoholism, drug addiction, transportati on, low edu. Level, literacy, decrease access to med. care, skilled nursing, rehab)? @ -[Alcoholism Was there de-escalation of care discussed even if they declined (Discuss DNR or withdrawal of care, Hospice)? DNR status @ -[No] What co-morbidities impacted this encounter? (DM, HTN, Smoking, COPD, CAD, Cance r, CVA, ARF, Chemo, Hep., AIDS, mental health diagnosis, sleep apnea, morbid obesity)? @ -[Cirrhosis, alcohol dependence Was patient admitted / discharged? Hospital course, mention meds given and rou te, prescriptions, significant lab abnormalities, going to OR and other pertinent info. @ -[Patient is a 33-year-old man here with history and physical exam consistent with alcohol withdrawal. The patient at risk of developing severe DTs so will be admitted to have further benzodiazepine treatment. Undiagnosed new problem with uncertain prognosis? @ -[No] Drug Therapy requiring intensive monitoring for toxicity (Heparin, Nitro, Insulin, Cardizem)? @ -[No] Were any procedures done? @ -[No] Diagnosis/symptom? @ -[Acute alcohol withdrawal Acute, or Chronic, or Acute on Chronic? @ -[Acute Uncomplicated (without systemic symptoms) or Complicated (systemic symptoms)? @ -[Uncomplicated Side effects of treatment? @ -[No] Exacerbation, Progression, or Severe Exacerbation? @ -[No] Poses a threat to life or bodily function? How? (Chest pain, [place], [place], pneumonia, PE, COPD, DKA, ARF, appy, cholecystitis, CVA, Diverticulitis, Homicidal, Suicidal, threat to staff... and all critical care pts) @ -[Yes there is significant risk of morbidity and mortality related to alcohol withdrawal - Lab Data Result diagrams: 05/21/24 05:03 05/21/24 05:03 Lab Results 05/20/24 05/20/24 05/20/24 Range/Units 01:35 01:35 01:35 WBC 14.8 H (3.8-10.6) k/uL RBC 2.94 L (4.30-5.90) m/uL Hgb 9.8 L (13.0-17.5) gm/dL Hct 31.7 L (39.0-53.0) % MCV 107.6 H (80.0-100.0) fL MCH 33.5 (25.0-35.0) pg MCHC 31.1 (31.0-37.0) g/dL RDW 14.6 (11.5-15.5) % Plt Count 214 (150-450) k/uL MPV 8.1 Neutrophils % 67 % Lymphocytes % 20 % Monocytes % 9 % Eosinophils % 1 % Basophils % 0 % Neutrophils # 9.9 H (1.3-7.7) k/uL Lymphocytes # 2.9 (1.0-4.8) k/uL Monocytes # 1.3 H (0-1.0) k/uL Eosinophils # 0.2 (0-0.7) k/uL Basophils # 0.1 (0-0.2) k/uL Manual Slide Review Performed Hypochromasia Slight Macrocytosis Marked A Target Cells Present PT 19.1 H (10.0-12.5) sec INR 1.9 H (<1.2) APTT 36.0 H (22.0-30.0) sec Sodium 140 (137-145) mmol/L Potassium 3.7 (3.5-5.1) mmol/L Chloride 112 H (98-107) mmol/L Carbon Dioxide 19 L (22-30) mmol/L Anion Gap 9 mmol/L BUN 4 L (9-20) mg/dL Creatinine 0.68 (0.66-1.25) mg/dL Est GFR (CKD-EPI)AfAm >90 (>60 ml/min/1.73 sqM) Est GFR (CKD-EPI)NonAf >90 (>60 ml/min/1.73 sqM) Glucose 128 H (74-99) mg/dL Calcium 7.6 L (8.4-10.2) mg/dL Phosphorus 2.3 L (2.5-4.5) mg/dL Magnesium 2.0 (1.6-2.3) mg/dL Total Bilirubin 7.7 H (0.2-1.3) mg/dL AST 179 H (17-59) U/L ALT 43 (4-49) U/L Alkaline Phosphatase 561 H (38-126) U/L Total Protein 7.3 (6.3-8.2) g/dL Albumin 2.8 L (3.5-5.0) g/dL Amylase 48 (30-110) U/L Lipase 170 (23-300) U/L Serum Alcohol 291 H* mg/dL Disposition Clinical Impression: Alcoholic intoxication, Alcohol withdrawal, Anemia Disposition: ADMITTED IP TO THIS HOSP Condition: Stable Is patient prescribed a controlled substance at d/c from ED?: No
[2024-05-20] MEDS ORDERED: MAG HYDROX/AL HYDROX/SIMETH 30 ML CUP PO PRN (06:32)
[2024-05-20] MEDS ORDERED: NALOXONE 0.4 MG/ML 1 ML VIAL IV PRN (06:32)
[2024-05-20] MEDS ORDERED: LORazepam 2 MG/ML INJ IV PRN (06:34)
[2024-05-20] MEDS ORDERED: DEXTROSE 50% SYRINGE 50 ML IVP PRN ×2 (06:35)
[2024-05-20] MEDS: SODIUM CHLORIDE 0.9% 1,000 ML IV SCH (06:52)
[2024-05-20 08:00] LABS: Glucose,Whole Blood 100 mg/dL (70-110)
[2024-05-20] MEDS: SPIRONOLACTONE 25 MG TAB PO SCH ×2 (08:02→20:38)
[2024-05-20] MEDS: FERROUS SULFATE 325 MG TAB PO SCH (08:02)
[2024-05-20] MEDS: FAMOTIDINE 20 MG TAB PO SCH (08:03)
[2024-05-20] MEDS: POTASSIUM CHLORIDE ER 20 MEQ TAB.ER PO SCH (08:03)
[2024-05-20] MEDS: MULTIVITAMINS, THERA 1 EACH TAB PO SCH (08:03)
[2024-05-20] MEDS: FOLIC ACID 1 MG TAB PO SCH (08:03)
[2024-05-20] MEDS: PANTOPRAZOLE 40 MG TABLET PO SCH (08:03)
[2024-05-20] MEDS: INSULIN ASPART (NovoLOG) 100 UNIT/ML VIAL SQ SCH (08:04)
[2024-05-20] MEDS: lisinopriL 20 MG TAB PO SCH (08:04)
[2024-05-20] MEDS: LORazepam 2 MG/ML INJ IV PRN ×2 (08:40→20:39)
--- NOTE | 2024-05-20 09:49 | P.HPIM ---
History of Present Illness 33-year-old male came in with alcohol intoxication received Ativan barely below able to provide any history to me patient has been drinking about a pint of alcohol does have history of cirrhosis with INR of around 1.9 patient does have ascites with umbilical hernia. Patient had a recent paracentesis. Patient although is willing to quit alcohol. Patient had history of withdrawals and seizures in the past. REVIEW OF SYSTEMS: All other systems are negative except those mentioned in the HPI PHYSICAL EXAMINATION: GENERAL: Drowsy sleepy and oriented x3, not in any acute distress. Well developed, well nourished. HEENT: Pupils are round and equally reacting to light. EOMI. No scleral icterus. No conjunctival pallor. Normocephalic, atraumatic. No pharyngeal erythema. No thyromegaly. CARDIOVASCULAR: S1 and S2 present. No murmurs, rubs, or gallops. PULMONARY: Chest is clear to auscultation, no wheezing or crackles. ABDOMEN: Soft, nontender distended with ascites no tenderness umbilical hernia MUSCULOSKELETAL: No joint swelling or deformity. EXTREMITIES: No cyanosis, clubbing, or pedal edema. NEUROLOGICAL: Gross neurological examination did not reveal any focal deficits. SKIN: No rashes. Assessment and plan -Alcohol intoxication counseling was provided social work will be consulted -Alcohol withdrawal patient will be on Ativan CIWA protocol patient on thiamine multivitamin supplementation -Alcoholic cirrhosis continue trending alcohol patient is on Aldactone which will be continued discontinue IV fluids patient does have ascites and umbilical hernia does not have any spontaneous bacterial peritonitis -Hypertension patient blood pressure is low we will discontinue lisinopril patient has been tachycardic my suspicion is low for pulmonary embolism, patient will be started on metoprolol DVT prophylaxis: Patient is already anticoagulated with INR of 1.9 will not require any pharmacological DVT prophylaxis Past Medical History Past Medical History: Hypertension, Liver Disease Additional Past Medical History / Comment(s): Nephrolithiasis, ETOH abuse with past withdrawal tremors, past alcoholic hepatitis/acute severe kidney injury/hyperphosphatemia/acute metabolic encephalopathy from renal failure. History of Any Multi-Drug Resistant Organisms: None Reported Past Surgical History: Cholecystectomy, Tonsillectomy Past Anesthesia/Blood Transfusion Reactions: No Reported Reaction Past Psychological History: No Psychological Hx Reported Smoking Status: Current every day smoker, Vaper Past Alcohol Use History: Abuse, Daily Past Drug Use History: Cocaine, Marijuana - Past Family History Father Family Medical History: Myocardial Infarction ([place]) Mother Family Medical History: Hypertension Additional Family Medical History / Comment(s): heart stent Medications and Allergies Home Medications Medication Instructions Recorded Confirmed Type Thiamine [Vitamin B-1] 100 mg PO DAILY #30 tab 09/30/23 05/11/24 Rx Folic Acid 1 mg PO DAILY 02/20/24 05/11/24 History Dapagliflozin Propanediol [Farxiga] 10 mg PO DAILY 03/08/24 05/11/24 History Insulin Lispro [Insulin Lispro See Protocol SQ ACHS 03/08/24 05/11/24 History Kwikpen U-100] Spironolactone [Aldactone] 50 mg PO BID #120 tab 03/29/24 05/11/24 Rx Ferrous Sulfate [Iron (65 MG 325 mg PO DAILY 05/11/24 05/11/24 History Elemental)] lisinopriL [Zestril] 20 mg PO DAILY 05/11/24 05/11/24 History Multivitamins, Thera [Multivitamin 1 each PO DAILY #30 tab 05/14/24 Rx (formulary)] Pantoprazole [Protonix] 40 mg PO DAILY #30 tab 05/14/24 Rx Potassium Chloride ER [K-Dur 20] 20 meq PO DAILY #14 tab 05/14/24 Rx Allergies Allergy/AdvReac Type Severity Reaction Status Date / Time No Known Allergies Allergy Verified 05/20/24 00:16 Physical Exam Vitals: Vital Signs Temp Pulse Resp BP Pulse Ox 05/20/24 09:37 113 H 18 121/75 94 L 05/20/24 07:59 98.6 F 114 H 20 112/73 95 05/20/24 06:06 98.1 F 107 H 16 106/57 94 L 05/20/24 05:18 109 H 20 98/51 94 L 05/20/24 03:52 117 H 20 86 L 05/20/24 03:35 123 H 22 151/72 97 05/20/24 02:59 120 H 22 95/62 96 05/20/24 01:35 118 H 20 117/73 97 05/20/24 00:14 98.7 F 112 H 20 113/55 98 Intake and Output 05/19/24 05/20/24 05/20/24 22:59 06:59 14:59 Other: Weight 81.647 kg Results CBC & Chem 7: 05/20/24 01:35 05/20/24 01:35 Labs: Abnormal Lab Results - Last 24 Hours (Table) 05/20/24 05/20/24 05/20/24 Range/Units 01:35 01:35 01:35 WBC 14.8 H (3.8-10.6) k/uL RBC 2.94 L (4.30-5.90) m/uL Hgb 9.8 L (13.0-17.5) gm/dL Hct 31.7 L (39.0-53.0) % MCV 107.6 H (80.0-100.0) fL Neutrophils # 9.9 H (1.3-7.7) k/uL Monocytes # 1.3 H (0-1.0) k/uL Macrocytosis Marked A PT 19.1 H (10.0-12.5) sec INR 1.9 H (<1.2) APTT 36.0 H (22.0-30.0) sec Chloride 112 H (98-107) mmol/L Carbon Dioxide 19 L (22-30) mmol/L BUN 4 L (9-20) mg/dL Glucose 128 H (74-99) mg/dL Calcium 7.6 L (8.4-10.2) mg/dL Phosphorus 2.3 L (2.5-4.5) mg/dL Total Bilirubin 7.7 H (0.2-1.3) mg/dL AST 179 H (17-59) U/L Alkaline Phosphatase 561 H (38-126) U/L Albumin 2.8 L (3.5-5.0) g/dL Serum Alcohol 291 H* mg/dL
[2024-05-20] MEDS: METOPROLOL TARTRATE 25 MG TAB PO SCH (10:14)
[2024-05-20 11:43] LABS: Glucose,Whole Blood 110 mg/dL (70-110)
[2024-05-20] MEDS: ONDANSETRON 4 MG/2 ML VIAL IVP PRN (12:25)
[2024-05-20 17:22] LABS: Glucose,Whole Blood 109 mg/dL (70-110)
[2024-05-20] MEDS: chlordiazePOXIDE 25 MG CAP PO PRN (17:56)
[2024-05-20 19:49] LABS: Glucose,Whole Blood 120 mg/dL (70-110)
[2024-05-20 20:49] LABS: Appearance,Urine Clear (Clear); Bilirubin,Urine 1+ (Negative); Blood,Urine Negative (Negative); Color,Urine Yellow; Glucose,Urine (UA) 4+ (Negative); Ketones,Urine Negative (Negative); Leukocyte Esterase,Urine Negative (Negative); Nitrite,Urine Negative (Negative); Protein,Urine Negative (Negative); Specific Gravity,Urine 1.009 (1.001-1.035); Urobilinogen,Urine <2.0 mg/dL (<2.0)
[2024-05-20 21:21] LABS: Amphetamine Screen,Urine Not Detected (NotDetected); Benzodiazepines Screen,Urine Detected (NotDetected); Cocaine Screen,Urine Detected (NotDetected); Opiate Screen,Urine Not Detected (NotDetected); Phencyclidine Screen,Urine Not Detected (NotDetected); Tricyclic Antidepressant,Urine Not Detected (NotDetected)
[2024-05-20 21:22] LABS: Barbiturate Screen,Urine Not Detected (NotDetected); Methadone Screen, Urine Not Detected (NotDetected); Oxycodone Screen, Urine Not Detected (NotDetected); Urn Cannabinoid Scrn Detected (NotDetected)
[2024-05-21 01:56] VITALS: RESP 18
[2024-05-21 05:39] LABS: Basophils % (A) 0 %; Eosinophils # (A) 0.2 k/uL (0-0.7); Eosinophils % (A) 2 %; HCT 26.9 % (39.0-53.0); Hypochromasia Marked; Lymphocytes # (A) 1.8 k/uL (1.0-4.8); Lymphocytes % (A) 19 %; MCH 33.8 pg (25.0-35.0); MCHC 30.8 g/dL (31.0-37.0); MCV 109.6 fL (80.0-100.0); Macrocytosis Marked; Mean Platelet Volume 8.3; Monocytes # (A) 0.7 k/uL (0-1.0); Monocytes % (A) 7 %; Neutrophils # (A) 6.7 k/uL (1.3-7.7); Neutrophils % (A) 69 %; Platelet Count 158 k/uL (150-450); RBC 2.45 m/uL (4.30-5.90); RDW 14.1 % (11.5-15.5); WBC 9.6 k/uL (3.8-10.6)
[2024-05-21 05:42] LABS: HGB 8.3 gm/dL (13.0-17.5)
[2024-05-21 05:56] LABS: ALT 34 U/L (4-49); AST 153 U/L (17-59); African American GFR (CKD) >90 (>60 ml/min/1.73 sqM); Albumin 2.2 g/dL (3.5-5.0); Albumin/Globulin Ratio 0.6; Alkaline Phosphatase 482 U/L (38-126); Anion Gap 4 mmol/L; Blood Urea Nitrogen 3 mg/dL (9-20); Calcium 7.6 mg/dL (8.4-10.2); Carbon Dioxide 20 mmol/L (22-30); Chloride 106 mmol/L (98-107); Globulin 3.9 g/dL; Glucose 101 mg/dL (74-99); Non-African American GFR(CKD) >90 (>60 ml/min/1.73 sqM); Potassium 4.1 mmol/L (3.5-5.1); Sodium 130 mmol/L (137-145); Total Bilirubin 8.1 mg/dL (0.2-1.3); Total Protein 6.1 g/dL (6.3-8.2)
[2024-05-21 07:06] LABS: Glucose,Whole Blood 90 mg/dL (70-110)
[2024-05-21] MEDS: THIAMINE 100 MG TAB PO SCH (08:50)
[2024-05-21 12:19] LABS: Glucose,Whole Blood 137 mg/dL (70-110)
[2024-05-21 12:45] VITALS: BP 112/68; PULSE 90; TEMP 98.5
[2024-05-21] MEDS: HYDROCORTISONE 2.5% RECTAL CREAM 30 GM TUBE RECTAL SCH (14:10)
--- NOTE | 2024-05-25 09:45 | P.DS ---
Providers Date of admission: 05/20/24 06:33 Expected date of discharge: 05/21/24 Attending physician: Bora Carreno Primary care physician: Gabe Flynn [facility] Course: Final diagnosis -Alcohol intoxication, patient was provided information for outpatient inpatient alcohol rehab -Acute alcohol withdrawal -Alcoholic cirrhosis -Chronic umbilical hernia, being worked up outpatient although needs clearance from GI regarding his chronic alcohol abuse -Hypertension -Chronic hemorrhoids, also being worked up outpatient although needs clearance and needs complete alcohol abstinence -GI prophylaxis -DVT prophylaxis -Full code Discharge disposition Patient is being discharged in a stable condition with guarded prognosis to home. Patient will follow-up with Dr. Flynn in the outpatient setting upon discharge. Patient is to follow-up with GI and general surgery outpatient as scheduled. Total time taken is greater than 35 minutes. Hospital course This is a 33-year-old male who was recently admitted with with acute alcohol intoxication with acute alcohol withdrawal being closely monitored on CIWA protocol. Patient reporting that he would like to go to rehab and social work evaluated him and provided with resources and intake numbers for inpatient alcohol rehab. Patient also reporting significant hemorrhoid pain that he is following with GI as well as general surgery Dr. Carranza outpatient although LFTs as well as alcohol cessation needs to be obtained prior to any surgical intervention and patient has yet to do so. Patient maintained on Librium as needed as well as p.o. Ativan and has not required. Patient requesting to go home as he is upset he is not receiving Dilaudid for his hemorrhoid pain. Patient was provided hydrocortisone cream and will be discharged today. Currently no reports of chest pain, shortness of breath, or palpitations. Patient is afebrile. No reports of nausea or vomiting and patient is tolerating diet. Patient will be discharged home today. Guarded prognosis and high risk for readmissions given patient's noncompliance to follow-up, medication use, and continued alcohol abuse. Physical exam: Gen: This is a 33-year-old male who is awake, alert and oriented x 3, well- developed, appears older than stated age, unkempt HEENT: Head is atraumatic, normocephalic. Pupils equal, round. Sclerae is anicteric. NECK: Supple. No JVD. No lymphadenopathy. No thyromegaly. LUNGS: Clear to auscultation. No wheezes or rhonchi. No intercostal retractions. HEART: Regular rate and rhythm. No murmur. ABDOMEN: Soft. Mildly distended, umbilical hernia noted that is reproducible, bowel sounds are present. No masses. No tenderness. EXTREMITIES: No pedal edema. No calf tenderness. NEUROLOGICAL: Patient is awake, alert and oriented x3. Cranial nerves 2 through 12 are grossly intact. Please refer to medication reconciliation sheet for a list of medications. The impression and plan of care has been dictated by Yuli Willingham, Nurse Practitioner as directed. Dr. Asim MD I have performed a history and examination and MDM of this patient, discussed the same with the dictator, and agree with the dictator's assessment and plan as written ,documented as a scribe. Based on total visit time, I have performed more than 50% of the visit. Patient Condition at Discharge: Stable Plan - Discharge Summary Discharge Rx Participant: Yes New Discharge Prescriptions: New Metoprolol Tartrate [Lopressor] 25 mg PO BID #60 tab Hydrocortisone Pr Cream [Proctosol-Hc 2.5%] 1 applic RECTAL BID #1 each Continue Thiamine [Vitamin B-1] 100 mg PO DAILY #30 tab Dapagliflozin Propanediol [Farxiga] 10 mg PO DAILY Pantoprazole [Protonix] 40 mg PO DAILY #30 tab Folic Acid 1 mg PO DAILY Insulin Lispro [Insulin Lispro Kwikpen U-100] See Protocol SQ ACHS PRN PRN Reason: Blood Sugar - High Spironolactone [Aldactone] 50 mg PO BID #120 tab Ferrous Sulfate [Iron (65 MG Elemental)] 325 mg PO DAILY Potassium Chloride ER [K-Dur 20] 20 meq PO DAILY #14 tab Multivitamins, Thera [Multivitamin (formulary)] 1 tab PO DAILY Discontinued lisinopriL [Zestril] 20 mg PO DAILY Discharge Medication List Thiamine [Vitamin B-1] 100 mg PO DAILY #30 tab 09/30/23 [Rx] Folic Acid 1 mg PO DAILY 02/20/24 [History] Dapagliflozin Propanediol [Farxiga] 10 mg PO DAILY 03/08/24 [History] Insulin Lispro [Insulin Lispro Kwikpen U-100] See Protocol SQ ACHS PRN 03/08/24 [History] Spironolactone [Aldactone] 50 mg PO BID #120 tab 03/29/24 [Rx] Ferrous Sulfate [Iron (65 MG Elemental)] 325 mg PO DAILY 05/11/24 [History] Pantoprazole [Protonix] 40 mg PO DAILY #30 tab 05/14/24 [Rx] Potassium Chloride ER [K-Dur 20] 20 meq PO DAILY #14 tab 05/14/24 [Rx] Multivitamins, Thera [Multivitamin (formulary)] 1 tab PO DAILY 05/20/24 [History] Hydrocortisone Pr Cream [Proctosol-Hc 2.5%] 1 applic RECTAL BID #1 each 05/21/24 [Rx] Metoprolol Tartrate [Lopressor] 25 mg PO BID #60 tab 05/21/24 [Rx] Follow up Appointment(s)/Referral(s): Caitlin Pinzon MD [STAFF PHYSICIAN] - 1 Week (please call for appointment, office closed at time of discharge.) Ida Ross MD [STAFF PHYSICIAN] - 1 Week (please call for appointment, office closed at time of discharge.) Gabe Flynn DO [Primary Care Provider] - 1-2 days (please call for appointment, office closed at time of discharge.) Patient Instructions/Handouts: How to Stop Smoking (DC), Cirrhosis (DC), Abuse of Alcohol (DC), Alcohol Withdrawal (DC) Activity/Diet/Wound Care/Special Instructions: Activity limited until follow-up Follow-up with GI outpatient Follow-up with general surgery outpatient Continue to refrain from all alcohol use and exposure STRONGLY recommend inpatient alcohol rehab Discharge/Stand Alone Forms: AA Meetings [facility] 24 - [facility], AA Meetings [place], [facility] Resources, Outpatient Counseling, In Substance Abuse Facilities Discharge Disposition: HOME SELF-CARE
== END 2024-05-21 17:43 | disposition home or self-care (01) | DRG 775 ==
LOC: EC 00:12 → 4SSUR 06:33 → 5NMEDONC 06:45
PROVIDERS: ADMIT Hospitalist; ATTEND Hospitalist
DX: F10.139 Alcohol abuse with withdrawal, unspecified (principal); F10.129 Alcohol abuse with intoxication, unspecified; R18.8 Other ascites; K70.30 Alcoholic cirrhosis of liver without ascites; Z79.4 Long term (current) use of insulin; R56.9 Unspecified convulsions; I10 Essential (primary) hypertension; R25.1 Tremor, unspecified; F17.290 Nicotine dependence, other tobacco product, uncomplicated; K42.9 Umbilical hernia without obstruction or gangrene; R03.1 Nonspecific low blood-pressure reading; Y90.8 Blood alcohol level of 240 mg/100 ml or more; Z79.84 Long term (current) use of oral hypoglycemic drugs; Z79.899 Other long term (current) drug therapy
CPT/HCPCS: 36415; 80053; 80306; 80320; 81003; 82150; 83036; 83690; 83735; 84100; 85025; 85610; 85730; 96361; 96374; 96375; 96376; 99285

== ENCOUNTER 2024-05-23 00:21 | Emergency (ER) | payer OTHER ==
--- NOTE | 2024-05-23 00:31 | ED ---
General Adult HPI - General Chief complaint: Fall Stated complaint: Fall Time Seen by Provider: 05/23/24 00:24 Source: patient Mode of arrival: EMS Limitations: no limitations - History of Present Illness Initial comments: Dictation was produced using [employer] dictation software. please excuse any grammatical, word or spelling errors. Chief Complaint: 33-year-old alcoholic male presents to the ER after fall History of Present Illness: Patient is a 33-year-old male who is a poor historian. Patient is alcoholic. Fell down approximately a flight of 10 steps. Patient complaining of neck and back pain. Patient had large amount of alcohol today. States that he drinks daily. History of present illness limited due to inebriation Unable to obtain detailed ROS secondary to mental status - Related Data Home Medications Medication Instructions Recorded Confirmed Folic Acid 1 mg PO DAILY 02/20/24 05/20/24 Dapagliflozin Propanediol [Farxiga] 10 mg PO DAILY 03/08/24 05/20/24 Insulin Lispro [Insulin Lispro See Protocol SQ ACHS PRN 03/08/24 05/20/24 Milo U-100] Ferrous Sulfate [Iron (65 MG 325 mg PO DAILY 05/11/24 05/20/24 Elemental)] Multivitamins, Thera [Multivitamin 1 tab PO DAILY 05/20/24 05/20/24 (formulary)] Previous Rx's Medication Instructions Recorded Thiamine [Vitamin B-1] 100 mg PO DAILY #30 tab 09/30/23 Spironolactone [Aldactone] 50 mg PO BID #120 tab 03/29/24 Pantoprazole [Protonix] 40 mg PO DAILY #30 tab 05/14/24 Potassium Chloride ER [K-Dur 20] 20 meq PO DAILY #14 tab 05/14/24 Hydrocortisone Pr Cream 1 applic RECTAL BID #1 each 05/21/24 [Proctosol-Hc 2.5%] Metoprolol Tartrate [Lopressor] 25 mg PO BID #60 tab 05/21/24 Allergies Allergy/AdvReac Type Severity Reaction Status Date / Time No Known Allergies Allergy Verified 05/23/24 00:27 Review of Systems ROS Statement: Those systems with pertinent positive or pertinent negative responses have been documented in the HPI. ROS Other: All systems not noted in ROS Statement are negative. Past Medical History Past Medical History: Hypertension, Liver Disease Additional Past Medical History / Comment(s): Nephrolithiasis, ETOH abuse with past withdrawal tremors, past alcoholic hepatitis/acute severe kidney injury/hyperphosphatemia/acute metabolic encephalopathy from renal failure. Hx. of diabetes, no longer on insulin.(30lb weight loss). Liver Cirrhosis/Ascites. History of Any Multi-Drug Resistant Organisms: None Reported Past Surgical History: Cholecystectomy, Tonsillectomy Additional Past Surgical History / Comment(s): Paracentesis x2 Past Anesthesia/Blood Transfusion Reactions: No Reported Reaction Past Psychological History: No Psychological Hx Reported Smoking Status: Current every day smoker, Vaper Past Alcohol Use History: Abuse, Daily Past Drug Use History: Cocaine, Marijuana - Past Family History Father Family Medical History: Myocardial Infarction ([place]) Mother Family Medical History: Hypertension Additional Family Medical History / Comment(s): heart stent General Exam - General Exam Comments Initial Comments: PHYSICAL EXAM: General Impression: Alert and oriented x3, not in acute distress, no asterixis, inebriated HEENT: Normocephalic atraumatic, extra-ocular movements intact, pupils equal and reactive to light bilaterally, mucous membranes moist. Cardiovascular: Heart regular rate and rhythm Chest: Able to complete full sentences, no retractions, no tachypnea Abdomen: abdomen soft, non-tender, distended with positive fluid wave, positive caput medusa, no organomegaly Musculoskeletal: Pulses present and equal in all extremities, no peripheral edema Motor: no focal deficits noted Neurological: CN II-XII grossly intact, no focal motor or sensory deficits noted Skin: Intact with no visualized rashes Psych: Normal affect and mood Limitations: no limitations Course Vital Signs 05/23/24 05/23/24 05/23/24 00:22 01:04 01:37 Temperature 98.4 F Pulse Rate 107 H 105 H 99 Respiratory 18 18 18 Rate Blood Pressure 106/62 114/92 101/65 O2 Sat by Pulse 96 95 95 Oximetry - Reevaluation(s) Reevaluation #1: 05/23/24 02:[address] Johnston who states that we do not have spinal coverage for the group tonight. Case was discussed with Dr. Martines for the other Ortho group states that he is unable to contact Dr. Branch's and at this hour and he recommends that patient be transferred. EKG Findings - EKG Comments: EKG Findings:: My EKG interpretation: Ventricular rate 103, sinus tachycardia,. 136, percent, QTc 4 7. No MT prolongation, no QTC prolongation, no ST or T-wave changes noted. Overall, this EKG is unremarkable Medical Decision Making - Medical Decision Making Was pt. sent in by a medical professional or institution (, PA, [employer], urgent care, hospital, or correction...) When possible be specific @ -No Did you speak to anyone other than the patient for history (EMS, parent, family, police, friend...)? What history was obtained from this source @ -EMS as described above Did you review nursing and triage notes (agree or disagree)? Why? @ -I reviewed and agree with nursing and triage notes Were old charts reviewed (outside hosp., previous admission, EMS record, old EKG, old radiological studies, urgent care reports/EKG's, correction records)? Report findings @ -No old charts were reviewed Differential Diagnosis (chest pain, altered mental status, abdominal pain women, abdominal pain men, vaginal bleeding, musculoskeletal, weakness, fever, dyspnea, syncope, headache, dizziness, GI bleed, back pain, seizure, CVA, palpatations, mental health)? @ -Back fracture, skull fracture, rib fracture EKG interpreted by me (3pts min.). @ -See above X-rays interpreted by me (1pt min.). @ -Chest and pelvis x-ray shows no acute processes CT interpreted by me (1pt min.). @ -CT head and C-spine shows no acute processes. CT chest abdomen pelvis shows L2 burst fracture U/S interpreted by me (1pt. min.). @ -None done What testing was considered but not performed or refused? (CT, X-rays, U/S, labs)? Why? @ -None What meds were considered but not given or refused? Why? @ -None Was smoking cessation discussed for >3mins.? @ -No Were there social determinants of health that impacted care today? How? (Homelessness, low income, unemployed, alcoholism, drug addiction, transportation, low edu. Level, literacy, decrease access to med. care, [place] [facility], rehab)? @ -Alcohol dependence Was there de-escalation of care discussed even if they declined (Discuss DNR or withdrawal of care, Hospice)? DNR status @ -No What co-morbidities impacted this encounter? (DM, HTN, Smoking, COPD, CAD, Cancer, CVA, ARF, Chemo, Hep., AIDS, mental health diagnosis, sleep apnea, morbid obesity)? @ -Liver cirrhosis Was patient admitted / discharged? Hospital course, mention meds given and route, prescriptions, significant lab abnormalities, going to OR and other pertinent info. @ -33-year-old male presents to the ER after a fall down the steps. Patient has clinical exam findings suggesting cirrhotic liver. Vital signs upon arrival shows slight tachycardia. Rest of vital signs within acceptable limits. Leukocytosis 16.3 hemoglobin 8.6. INR 1.9. [place] acidosis, lactic acidosis 2.3. This likely all sequela from liver cirrhosis. Serum alcohol is 286. Imaging study shows L2 burst fracture. Case was discussed with both Ortho group states that patient not appropriate for admission here given that we do not have spinal coverage currently. Case discussed with Dr. You at [facility] who is going to accept patient for ER to ER transfer. Did you discuss the management of the patient with other professionals (professionals i.e. , PA, [employer], lab, RT, psych nurse, social worker masters, packing line worker, teacher, surface to air weapons officer, spring encaser)? Give summary @ -See above Was critical care preformed (if so, how long)? @ -No Undiagnosed new problem with uncertain prognosis? @ -No Drug Therapy requiring intensive monitoring for toxicity (Heparin, Nitro, Insulin, Cardizem)? @ -No Were any procedures done? @ -No Diagnosis/symptom? Acute, or Chronic, or Acute on Chronic? Uncomplicated (without systemic symptoms) or Complicated (systemic symptoms)? @ -L2 burst fracture Side effects of treatment? @ -No Exacerbation, Progression, or Severe Exacerbation? @ -No Poses a threat to life or bodily function? How? (Chest pain, USA, ID, pneumonia, PE, COPD, DKA, ARF, appy, cholecystitis, CVA, Diverticulitis, Homicidal, Suicidal, threat to staff... and all critical care pts) @ -yes - Lab Data Result diagrams: 05/23/24 00:26 05/23/24 00:26 Lab Results 05/23/24 05/23/24 05/23/24 Range/Units 00:20 00:26 00:26 WBC 16.3 H (3.8-10.6) k/uL RBC 2.56 L (4.30-5.90) m/uL Hgb 8.7 L (13.0-17.5) gm/dL Hct 28.5 L (39.0-53.0) % MCV 111.3 H (80.0-100.0) fL MCH 33.9 (25.0-35.0) pg MCHC 30.4 L (31.0-37.0) g/dL RDW 14.3 (11.5-15.5) % Plt Count 193 (150-450) k/uL MPV 8.7 Neutrophils % 72 % Lymphocytes % 16 % Monocytes % 7 % Eosinophils % 2 % Basophils % 0 % Neutrophils # 11.6 H (1.3-7.7) k/uL Lymphocytes # 2.5 (1.0-4.8) k/uL Monocytes # 1.2 H (0-1.0) k/uL Eosinophils # 0.3 (0-0.7) k/uL Basophils # 0.1 (0-0.2) k/uL Hypochromasia Marked Macrocytosis Marked A PT 19.7 H (10.0-12.5) sec INR 1.9 H (<1.2) APTT 32.8 H (22.0-30.0) sec Sodium (137-145) mmol/L Potassium (3.5-5.1) mmol/L Chloride (98-107) mmol/L Carbon Dioxide (22-30) mmol/L Anion Gap mmol/L BUN (9-20) mg/dL Creatinine (0.66-1.25) mg/dL Est GFR (CKD-EPI)AfAm (>60 ml/min/1.73 sqM) Est GFR (CKD-EPI)NonAf (>60 ml/min/1.73 sqM) Glucose (74-99) mg/dL Plasma Lactic Acid Raul 2.3 H* (0.7-2.0) mmol/L Calcium (8.4-10.2) mg/dL Total Bilirubin (0.2-1.3) mg/dL AST (17-59) U/L ALT (4-49) U/L Alkaline Phosphatase (38-126) U/L Ammonia 52 H (<30) umol/L Troponin I (0.000-0.034) ng/mL Total Protein (6.3-8.2) g/dL Albumin (3.5-5.0) g/dL Serum Alcohol mg/dL Blood Type Blood Type Confirm Blood Type Recheck Bld Type Recheck Status Antibody Screen Spec Expiration Date 05/23/24 05/23/24 05/23/24 Range/Units 00:26 00:26 00:30 WBC (3.8-10.6) k/uL RBC (4.30-5.90) m/uL Hgb (13.0-17.5) gm/dL Hct (39.0-53.0) % MCV (80.0-100.0) fL MCH (25.0-35.0) pg MCHC (31.0-37.0) g/dL RDW (11.5-15.5) % Plt Count (150-450) k/uL MPV Neutrophils % % Lymphocytes % % Monocytes % % Eosinophils % % Basophils % % Neutrophils # (1.3-7.7) k/uL Lymphocytes # (1.0-4.8) k/uL Monocytes # (0-1.0) k/uL Eosinophils # (0-0.7) k/uL Basophils # (0-0.2) k/uL Hypochromasia Macrocytosis PT (10.0-12.5) sec INR (<1.2) APTT (22.0-30.0) sec Sodium 132 L (137-145) mmol/L Potassium 5.1 (3.5-5.1) mmol/L Chloride 109 H (98-107) mmol/L Carbon Dioxide 16 L (22-30) mmol/L Anion Gap 7 mmol/L BUN 3 L (9-20) mg/dL Creatinine 0.92 (0.66-1.25) mg/dL Est GFR (CKD-EPI)AfAm >90 (>60 ml/min/1.73 sqM) Est GFR (CKD-EPI)NonAf >90 (>60 ml/min/1.73 sqM) Glucose 138 H (74-99) mg/dL Plasma Lactic Acid Raul (0.7-2.0) mmol/L Calcium 7.4 L (8.4-10.2) mg/dL Total Bilirubin 4.9 H (0.2-1.3) mg/dL AST 233 H (17-59) U/L ALT 44 (4-49) U/L Alkaline Phosphatase 497 H (38-126) U/L Ammonia (<30) umol/L Troponin I <0.012 (0.000-0.034) ng/mL Total Protein 6.4 (6.3-8.2) g/dL Albumin 2.4 L (3.5-5.0) g/dL Serum Alcohol 286 H* mg/dL Blood Type O Positive Blood Type Confirm Blood Type Recheck No Previous Record Bld Type Recheck Status CABO Indicated Antibody Screen NEGATIVE Spec Expiration Date 05/26/2024 - 232905/23/24 Range/Units 00:46 WBC (3.8-10.6) k/uL RBC (4.30-5.90) m/uL Hgb (13.0-17.5) gm/dL Hct (39.0-53.0) % MCV (80.0-100.0) fL MCH (25.0-35.0) pg MCHC (31.0-37.0) g/dL RDW (11.5-15.5) % Plt Count (150-450) k/uL MPV Neutrophils % % Lymphocytes % % Monocytes % % Eosinophils % % Basophils % % Neutrophils # (1.3-7.7) k/uL Lymphocytes # (1.0-4.8) k/uL Monocytes # (0-1.0) k/uL Eosinophils # (0-0.7) k/uL Basophils # (0-0.2) k/uL Hypochromasia Macrocytosis PT (10.0-12.5) sec INR (<1.2) APTT (22.0-30.0) sec Sodium (137-145) mmol/L Potassium (3.5-5.1) mmol/L Chloride (98-107) mmol/L Carbon Dioxide (22-30) mmol/L Anion Gap mmol/L BUN (9-20) mg/dL Creatinine (0.66-1.25) mg/dL Est GFR (CKD-EPI)AfAm (>60 ml/min/1.73 sqM) Est GFR (CKD-EPI)NonAf (>60 ml/min/1.73 sqM) Glucose (74-99) mg/dL Plasma Lactic Acid Raul (0.7-2.0) mmol/L Calcium (8.4-10.2) mg/dL Total Bilirubin (0.2-1.3) mg/dL AST (17-59) U/L ALT (4-49) U/L Alkaline Phosphatase (38-126) U/L Ammonia (<30) umol/L Troponin I (0.000-0.034) ng/mL Total Protein (6.3-8.2) g/dL Albumin (3.5-5.0) g/dL Serum Alcohol mg/dL Blood Type Blood Type Confirm O Positive Blood Type Recheck Bld Type Recheck Status Antibody Screen Spec Expiration Date Disposition Clinical Impression: Vertebral fracture Disposition: OTHER INSTITUTION NOT DEFINED Condition: Fair Referrals: Gabe Flynn DO [Primary Care Provider] - 1-2 days Time of Disposition: 02:39 - Out of Hospital Transfer - Req. Specs Out of Hospital Transfer - Requested Specifics: Other Emergency Center ([facility])
[2024-05-23 00:34] VITALS: RESP 18; TEMP 98.4
[2024-05-23 00:49] LABS: Basophils # (A) 0.1 k/uL (0-0.2); Basophils % (A) 0 %; Eosinophils # (A) 0.3 k/uL (0-0.7); Eosinophils % (A) 2 %; HCT 28.5 % (39.0-53.0); HGB 8.7 gm/dL (13.0-17.5); Hypochromasia Marked; Lymphocytes # (A) 2.5 k/uL (1.0-4.8); Lymphocytes % (A) 16 %; MCH 33.9 pg (25.0-35.0); MCHC 30.4 g/dL (31.0-37.0); MCV 111.3 fL (80.0-100.0); Macrocytosis Marked; Mean Platelet Volume 8.7; Monocytes # (A) 1.2 k/uL (0-1.0); Monocytes % (A) 7 %; Neutrophils # (A) 11.6 k/uL (1.3-7.7); Neutrophils % (A) 72 %; Platelet Count 193 k/uL (150-450); RBC 2.56 m/uL (4.30-5.90); RDW 14.3 % (11.5-15.5); WBC 16.3 k/uL (3.8-10.6)
[2024-05-23 01:03] LABS: ALT 44 U/L (4-49); African American GFR (CKD) >90 (>60 ml/min/1.73 sqM); Albumin 2.4 g/dL (3.5-5.0); Anion Gap 7 mmol/L; Blood Urea Nitrogen 3 mg/dL (9-20); Calcium 7.4 mg/dL (8.4-10.2); Carbon Dioxide 16 mmol/L (22-30); Chloride 109 mmol/L (98-107); Glucose 138 mg/dL (74-99); Non-African American GFR(CKD) >90 (>60 ml/min/1.73 sqM); Sodium 132 mmol/L (137-145); Total Bilirubin 4.9 mg/dL (0.2-1.3); Total Protein 6.4 g/dL (6.3-8.2)
[2024-05-23] MEDS: MORPHINE SULFATE 4 MG/ML SYRINGE IV STA (01:08)
--- NOTE | 2024-05-23 01:12 | XR ---
EXAMINATION TYPE: XR chest 1V portable DATE OF EXAM: 05/23/2024 CLINICAL HISTORY: Trauma TECHNIQUE: Single AP portable frontal supine view of the chest is obtained. COMPARISON: Chest x-ray March 23, 2024 FINDINGS: Low lung volumes are seen with increased bilateral opacities. Cardiomegaly is noted. There is no pleural effusion or pneumothorax seen. The osseous structures are intact. IMPRESSION: Possible bilateral edema and/or atelectasis versus product of poor inspiration. [facility], , 05/23/2024 1:10 AM
--- NOTE | 2024-05-23 01:14 | XR ---
EXAMINATION TYPE: XR pelvis AP view DATE OF EXAM: 05/23/2024 CLINICAL HISTORY: Trauma TECHNIQUE: 2 frontal views of the pelvis are obtained. COMPARISON: CT abdomen and pelvis May 11, 2024 FINDINGS: Slightly suboptimal evaluation due to large body habitus. No acute displaced fracture in th e pelvis is seen. Pubic symphysis is intact. Hip joints are maintained. IMPRESSION: As above. [facility], , 05/23/2024 1:11 AM
[2024-05-23 01:22] LABS: INR 1.9 (<1.2); Partial Thromboplastin Time 32.8 sec (22.0-30.0); Prothrombin Time 19.7 sec (10.0-12.5)
[2024-05-23 01:24] LABS: Alcohol 286 mg/dL
[2024-05-23 01:25] LABS: AST 233 U/L (17-59); Alkaline Phosphatase 497 U/L (38-126); Potassium 5.1 mmol/L (3.5-5.1)
--- NOTE | 2024-05-23 01:33 | CT ---
EXAMINATION TYPE: CT brain cspine wo con DATE OF EXAM: 05/23/2024 COMPARISON: Prior trauma CT January 12, 2023 HISTORY: Trauma Automated Exposure Control for Dose Reduction was Utilized. TECHNIQUE: CT scan of the head and cervical spine are performed without contrast. FINDINGS: There is no acute intracranial hemorrhage, mass effect, or midline shift identified. The ventricles and sulci are within normal limits in size. Shafer-white matter differentiation is maintain ed. The calvarium is intact. Nasal septum remains deviated to right of midline. The globes are intact and the visualized sinuses are clear. Cervical spine is visualized in its entirety from C1 through upper thoracic levels and demonstrates s atisfactory alignment without evidence of acute fracture or dislocation. Prevertebral soft tissue ap pears within normal limits. The C1-C2 articulation is within normal limits on the coronal images. Ve rtebral body heights and disc space heights are within normal limits. Spinal canal is preserved. Thyr oid gland remains unremarkable. Lung apices show no pneumothorax. IMPRESSION: 1. There is no acute fracture or dislocation evident in the cervical spine. 2. No acute intracranial hemorrhage or midline shift is seen. [facility], , 05/23/2024 1:31 AM
[2024-05-23] MEDS: NICOTINE 21MG/24HR PATCH TRANSDERM STA (01:42)
--- NOTE | 2024-05-23 01:45 | CT ---
EXAMINATION TYPE: CT ChestAbdPelvis w con DATE OF EXAM: 05/23/2024 COMPARISON: CT abdomen and pelvis May 11, 2024 HISTORY: Trauma Automated Exposure Control for Dose Reduction was Utilized. CONTRAST: CT scan of the thorax, abdomen and pelvis is performed with IV contrast. FINDINGS: LUNGS: Low lung volumes are present. Some groundglass opacities suggest mild edema and/or atelectasis . There is additional dependent atelectasis in both lung bases. No pleural effusion or pneumothorax s een bilaterally. MEDIASTINUM: Mild cardiomegaly. Trace inferior pericardial effusion. LIVER/GB: Heterogeneous hypodense liver redemonstrated.. PANCREAS: No significant abnormality is seen. SPLEEN: Persistent splenomegaly measuring 15.7 cm on axial image 60. ADRENALS: No significant abnormality is seen. KIDNEYS: Stable 1 to 2 mm nonobstructing right renal calculus upper pole level coronal image 85. BOWEL: No significant abnormality is seen. GENITAL ORGANS: No gross abnormality seen. LYMPH NODES: No greater than 1cm abdominal or pelvic lymph nodes are appreciated. OSSEOUS STRUCTURES: Acute comminuted displaced fracture of the L2 vertebra involving superior aspect. Fracture line extends from anterior to posterior margin. Posterior ossific fragment extends into the anterior spinal canal measuring 6 mm. OTHER: Moderate ascites remains present. IMPRESSION: 1. There is acute burst-type fracture involving the L2 vertebra with fracture fragment extension into the anterior spinal canal at this level. 2. No acute post traumatic finding in the thorax. 3. Persistent hepatocellular disease with evidence of portal venous hypertension as there is splenome mesha and moderate peritoneal ascites redemonstrated [facility], Workstation: [id number], 05/23/2024 1:42 AM
[2024-05-23 01:49] LABS: Lactic Acid, Venous 2.3 mmol/L (0.7-2.0)
[2024-05-23 02:55] VITALS: BP 95/61; PULSE 95
[2024-05-23 03:58] LABS: Urn Cannabinoid Scrn Detected (NotDetected)
[2024-05-23 03:59] LABS: Amphetamine Screen,Urine Not Detected (NotDetected); Barbiturate Screen,Urine Not Detected (NotDetected); Benzodiazepines Screen,Urine Detected (NotDetected); Cocaine Screen,Urine Not Detected (NotDetected); Methadone Screen, Urine Not Detected (NotDetected); Opiate Screen,Urine Detected (NotDetected); Oxycodone Screen, Urine Not Detected (NotDetected); Phencyclidine Screen,Urine Not Detected (NotDetected); Tricyclic Antidepressant,Urine Not Detected (NotDetected)
== END 2024-05-23 03:03 | disposition other institution (70) ==
LOC: EC 00:21
DX: S32.021A Stable burst fracture of second lumbar vertebra, initial encounter for closed fracture (principal); R00.0 Tachycardia, unspecified; K74.60 Unspecified cirrhosis of liver; F17.290 Nicotine dependence, other tobacco product, uncomplicated; W10.9XXA Fall (on) (from) unspecified stairs and steps, initial encounter
CPT/HCPCS: 36415; 93005; 86900; 86901; 80053; 82140; 83605; 84484; 85025; 85610; 85730; 86850; 80306; 72170; 71045; 72125; 70450; 71260; 74177; 99285; 96374; G0480; S4990; J2270; Q9967; 80320

== ENCOUNTER 2024-06-28 13:01 | Day surgery (SDC) | payer OTHER ==
[2024-06-28 13:46] LABS: Anisocytosis Slight; Basophils % (A) 0 %; Eosinophils # (A) 0.5 k/uL (0-0.7); Eosinophils % (A) 5 %; HCT 32.9 % (39.0-53.0); HGB 10.4 gm/dL (13.0-17.5); Hypochromasia Moderate; Lymphocytes # (A) 1.4 k/uL (1.0-4.8); Lymphocytes % (A) 14 %; MCHC 31.7 g/dL (31.0-37.0); Macrocytosis Moderate; Mean Platelet Volume 8.5; Monocytes # (A) 0.6 k/uL (0-1.0); Monocytes % (A) 6 %; Neutrophils # (A) 7.4 k/uL (1.3-7.7); Neutrophils % (A) 73 %; Platelet Count 223 k/uL (150-450); RBC 3.17 m/uL (4.30-5.90); RDW 16.7 % (11.5-15.5); WBC 10.1 k/uL (3.8-10.6)
[2024-06-28 13:51] LABS: Prothrombin Time 20.2 sec (10.0-12.5)
[2024-06-28 14:02] LABS: ALT 20 U/L (4-49); AST 83 U/L (17-59); African American GFR (CKD) >90 (>60 ml/min/1.73 sqM); Alkaline Phosphatase 368 U/L (38-126); Anion Gap 7 mmol/L; Blood Urea Nitrogen 6 mg/dL (9-20); Carbon Dioxide 25 mmol/L (22-30); Chloride 101 mmol/L (98-107); Glucose 104 mg/dL (74-99); Non-African American GFR(CKD) >90 (>60 ml/min/1.73 sqM); Sodium 133 mmol/L (137-145); Total Bilirubin 3.8 mg/dL (0.2-1.3); Total Protein 7.4 g/dL (6.3-8.2)
[2024-06-28 14:03] VITALS: RESP 16; TEMP 98.9
[2024-06-28] MEDS: ALBUMIN HUMAN 25% 50 ML in EMPTY BAG 1 BAG IVPB SCH (14:09)
[2024-06-28 14:25] LABS: Potassium 2.7 mmol/L (3.5-5.1)
[2024-06-28 16:02] VITALS: BP 105/51; PULSE 70
--- NOTE | 2024-06-29 06:58 | US ---
EXAMINATION TYPE: US paracentesis abd w/image DATE OF EXAM: 06/28/2024 CLINICAL HISTORY: Most recent CT May 23, 2024 The procedure was discussed with the patient. The risks, complications, benefits, and alternatives we re discussed and any questions were answered. Informed consent was obtained. The patient was placed s upine on the ultrasound table and prepped and draped in the usual sterile fashion. All elements of maximal barrier technique were utilized. After ultrasound guidance, access into the r ight lower quadrant was obtained, via 5 Maltese catheter system. Approximately 8.4 liters of straw-colored fluid was removed. The patient was stable throughout the pr ocedure and remained stable upon discharge from Department of Radiology. IMPRESSION: Successful therapeutic paracentesis under ultrasound guidance. [facility], , 06/29/2024 6:56 AM
== END 2024-06-28 15:49 | disposition home or self-care (01) ==
LOC: RADPROMAIN 13:01
PROVIDERS: ATTEND Internal Medicine Gastroenterology
DX: R93.5 Abnormal findings on diagnostic imaging of other abdominal regions, including retroperitoneum (principal)
CPT/HCPCS: 80053; 82140; 85025; 85610; 36415; 49083; P9047

== ENCOUNTER 2024-06-28 15:41 | Observation (INO) | payer OTHER ==
--- NOTE | 2024-06-28 16:49 | ED ---
General Adult HPI - General Chief complaint: Recheck/Abnormal Lab/Rx Stated complaint: abn labs Time Seen by Provider: 06/28/24 16:25 Source: patient Mode of arrival: ambulatory Limitations: no limitations - History of Present Illness Initial comments: Dictation was produced using 1Mind dictation software. please excuse any grammatical, word or spelling errors. Chief Complaint: 33-year-old male with liver failure presents to the ER for abnormal outpatient labs History of Present Illness: Patient 33-year-old male he went to get a paracentesis today. He had blood work performed. He was able to get his paracentesis completed. She told to come to the ER for abnormal lab. He was told his potassium level was low. That he feels tired states that has been feeling tired for weeks now The ROS documented in this emergency department record has been reviewed and confirmed by me. Those systems with pertinent positive or negative responses have been documented in the HPI. All other systems are other negative and/or noncontributory. - Related Data Home Medications Medication Instructions Recorded Confirmed Folic Acid 1 mg PO DAILY 02/20/24 06/28/24 Dapagliflozin Propanediol [Farxiga] 10 mg PO DAILY 03/08/24 06/28/24 Ferrous Sulfate [Iron (65 MG 325 mg PO DAILY 05/11/24 06/28/24 Elemental)] Multivitamins, Thera [Multivitamin 1 tab PO DAILY 05/20/24 06/28/24 (formulary)] Furosemide [Lasix] 40 mg PO DAILY 06/25/24 06/28/24 Metoprolol Tartrate [Lopressor] 25 mg PO DAILY 06/25/24 06/28/24 Previous Rx's Medication Instructions Recorded Thiamine [Vitamin B-1] 100 mg PO DAILY #30 tab 09/30/23 Pantoprazole [Protonix] 40 mg PO DAILY #30 tab 05/14/24 Hydrocortisone Pr Cream 1 applic RECTAL BID #1 each 05/21/24 [Proctosol-Hc 2.5%] Allergies Allergy/AdvReac Type Severity Reaction Status Date / Time No Known Allergies Allergy Verified 06/28/24 16:06 Review of Systems ROS Statement: Those systems with pertinent positive or pertinent negative responses have been documented in the HPI. ROS Other: All systems not noted in ROS Statement are negative. Past Medical History Past Medical History: Hypertension, Liver Disease Additional Past Medical History / Comment(s): Nephrolithiasis, ETOH abuse with past withdrawal tremors, past alcoholic hepatitis/acute severe kidney injury/hyperphosphatemia/acute metabolic encephalopathy from renal failure. Hx. of diabetes, no longer on insulin.(30lb weight loss). Liver Cirrhosis/Ascites. low K level, high ammonia History of Any Multi-Drug Resistant Organisms: None Reported Past Surgical History: Cholecystectomy, Tonsillectomy Additional Past Surgical History / Comment(s): Paracentesis x2 Past Anesthesia/Blood Transfusion Reactions: No Reported Reaction Past Psychological History: No Psychological Hx Reported Smoking Status: Current every day smoker, Vaper Past Alcohol Use History: Abuse, Daily Past Drug Use History: Cocaine, Marijuana - Past Family History Father Family Medical History: Myocardial Infarction ([place]) Mother Family Medical History: Hypertension Additional Family Medical History / Comment(s): heart stent General Exam - General Exam Comments Initial Comments: PHYSICAL EXAM: General Impression: Alert and oriented x3, mild jaundiced HEENT: Normocephalic atraumatic, extra-ocular movements intact, pupils equal and reactive to light bilaterally, mucous membranes moist. Cardiovascular: Heart regular rate and rhythm Chest: Able to complete full sentences, no retractions, no tachypnea Abdomen: abdomen soft, non-tender, non-distended, no organomegaly Musculoskeletal: Pulses present and equal in all extremities, no peripheral edema Motor: no focal deficits noted Neurological: CN II-XII grossly intact, no focal motor or sensory deficits noted Skin: Intact with no visualized rashes Psych: Normal affect and mood Limitations: no limitations Course Vital Signs 06/28/24 16:01 Temperature 98.4 F Pulse Rate 76 Respiratory 16 Rate Blood Pressure 102/55 O2 Sat by Pulse 97 Oximetry EKG Findings - EKG Comments: EKG Findings:: My EKG interpretation: Ventricular rate 69, sinus rhythm,. 170, QRS 104, QTc 463. No [place] prolongation, no QTC prolongation, no ST or T-wave changes noted. Overall, this EKG is unremarkable Medical Decision Making - Medical Decision Making Was pt. sent in by a medical professional or institution (, PA, HALL WORKER, urgent care, hospital, or fpc...) When possible be specific @ -No Did you speak to anyone other than the patient for history (EMS, parent, family, police, friend...)? What history was obtained from this source @ -No Did you review nursing and triage notes (agree or disagree)? Why? @ -I reviewed and agree with nursing and triage notes Were old charts reviewed (outside hosp., previous admission, EMS record, old EKG, old radiological studies, urgent care reports/EKG's, fpc records)? Report findings @ -No old charts were reviewed Differential Diagnosis (chest pain, altered mental status, abdominal pain women, abdominal pain men, vaginal bleeding, musculoskeletal, weakness, fever, dyspnea, syncope, headache, dizziness, GI bleed, back pain, seizure, CVA, palpatations, mental health)? @ -Differential Weakness: Hypoglycemia, shock, sepsis, hyponatremia, anemia, infection, VA, ETOH, adverse medicine reaction, overdose, stroke, this is not meant to be an all-inclusive list. EKG interpreted by me (3pts min.). @ -Above X-rays interpreted by me (1pt min.). @ -None done CT interpreted by me (1pt min.). @ -None done U/S interpreted by me (1pt. min.). @ -None done What testing was considered but not performed or refused? (CT, X-rays, U/S, labs)? Why? @ -None What meds were considered but not given or refused? Why? @ -None Was smoking cessation discussed for >3mins.? @ -No Were there social determinants of health that impacted care today? How? (Homelessness, low income, unemployed, alcoholism, drug addiction, transport ation, low edu. Level, literacy, decrease access to med. care, group home, rehab)? @ -No Was there de-escalation of care discussed even if they declined (Discuss DNR or withdrawal of care, Hospice)? DNR status @ -No What co-morbidities impacted this encounter? (DM, HTN, Smoking, COPD, CAD, Cancer, CVA, ARF, Chemo, Hep., AIDS, mental health diagnosis, sleep apnea, morbid obesity)? @ -None Was patient admitted / discharged? Hospital course, mention meds given and route, prescriptions, significant lab abnormalities, going to OR and other pertinent info. @ - 33-year-old male sent in from outpatient paracentesis lab for hypokalemia. Laboratory evaluation obtained. Hemoglobin 8.7 which is around his baseline. Metabolic panel shows potassium 2.9. Patient somnolent at the bedside. However arousable. Patient agreeable for observation admission for potassium replacement. Did you discuss the management of the patient with other professionals (professionals i.e. , PA, HALL WORKER, lab, RT, psych nurse, psychiatric social worker, drug regulatory affairs specialist, teacher, correctional security officer, wrapper caser)? Give summary @ -Discussed with hospitalist for admission Was critical care preformed (if so, how long)? @ -No Undiagnosed new problem with uncertain prognosis? @ -No Drug Therapy requiring intensive monitoring for toxicity (Heparin, Nitro, Insulin, Cardizem)? @ -No Were any procedures done? @ -No Diagnosis/symptom? Acute, or Chronic, or Acute on Chronic? Uncomplicated (without systemic symptoms) or Complicated (systemic symptoms)? @ -Symptomatic hypokalemia Side effects of treatment? @ -No Exacerbation, Progression, or Severe Exacerbation? @ -No Poses a threat to life or bodily function? How? (Chest pain, [place], VA, pneumonia, PE, COPD, DKA, ARF, appy, cholecystitis, CVA, Diverticulitis, Homicidal, Suicidal, threat to staff... and all critical care pts) @ -yes - Lab Data Result diagrams: 06/28/24 17:13 06/28/24 17:13 Lab Results 06/28/24 06/28/24 Range/Units 17:13 17:13 WBC 6.3 (3.8-10.6) k/uL RBC 2.64 L (4.30-5.90) m/uL Hgb 8.7 L D (13.0-17.5) gm/dL Hct 27.2 L (39.0-53.0) % MCV 102.8 H (80.0-100.0) fL MCH 33.0 (25.0-35.0) pg MCHC 32.1 (31.0-37.0) g/dL RDW 16.2 H (11.5-15.5) % Plt Count 160 (150-450) k/uL MPV 7.9 Neutrophils % 72 % Lymphocytes % 16 % Monocytes % 6 % Eosinophils % 4 % Basophils % 0 % Neutrophils # 4.5 (1.3-7.7) k/uL Lymphocytes # 1.0 (1.0-4.8) k/uL Monocytes # 0.4 (0-1.0) k/uL Eosinophils # 0.3 (0-0.7) k/uL Basophils # 0.0 (0-0.2) k/uL Hypochromasia Moderate Anisocytosis Slight Macrocytosis Moderate Sodium 134 L (137-145) mmol/L Potassium 2.9 L (3.5-5.1) mmol/L Chloride 103 (98-107) mmol/L Carbon Dioxide 24 (22-30) mmol/L Anion Gap 7 mmol/L BUN 5 L (9-20) mg/dL Creatinine 0.63 L (0.66-1.25) mg/dL Est GFR (CKD-EPI)AfAm >90 (>60 ml/min/1.73 sqM) Est GFR (CKD-EPI)NonAf >90 (>60 ml/min/1.73 sqM) Glucose 89 (74-99) mg/dL Calcium 8.0 L (8.4-10.2) mg/dL Magnesium 2.1 (1.6-2.3) mg/dL Disposition Clinical Impression: Hypokalemia Disposition: ADMITTED IP TO THIS HOSP Condition: Fair Referrals: Gabe Flynn DO [Primary Care Provider] - 1-2 days Decision Time: 17:41
[2024-06-28 17:24] LABS: Anisocytosis Slight; Basophils % (A) 0 %; Eosinophils # (A) 0.3 k/uL (0-0.7); Eosinophils % (A) 4 %; HCT 27.2 % (39.0-53.0); Hypochromasia Moderate; Lymphocytes % (A) 16 %; MCHC 32.1 g/dL (31.0-37.0); MCV 102.8 fL (80.0-100.0); Macrocytosis Moderate; Mean Platelet Volume 7.9; Monocytes # (A) 0.4 k/uL (0-1.0); Monocytes % (A) 6 %; Neutrophils # (A) 4.5 k/uL (1.3-7.7); Neutrophils % (A) 72 %; Platelet Count 160 k/uL (150-450); RBC 2.64 m/uL (4.30-5.90); RDW 16.2 % (11.5-15.5); WBC 6.3 k/uL (3.8-10.6)
[2024-06-28 17:31] LABS: African American GFR (CKD) >90 (>60 ml/min/1.73 sqM); Anion Gap 7 mmol/L; Blood Urea Nitrogen 5 mg/dL (9-20); Carbon Dioxide 24 mmol/L (22-30); Chloride 103 mmol/L (98-107); Glucose 89 mg/dL (74-99); Non-African American GFR(CKD) >90 (>60 ml/min/1.73 sqM); Sodium 134 mmol/L (137-145)
[2024-06-28 17:32] LABS: Magnesium 2.1 mg/dL (1.6-2.3); Potassium 2.9 mmol/L (3.5-5.1)
[2024-06-28 17:34] LABS: HGB 8.7 gm/dL (13.0-17.5)
[2024-06-28] MEDS ORDERED: NALOXONE 0.4 MG/ML 1 ML VIAL IV PRN (17:39)
[2024-06-28] MEDS: POTASSIUM CHLORIDE ER 20 MEQ TAB.ER PO STA (17:58)
[2024-06-28] MEDS: SODIUM CHLORIDE 0.9% 1,000 ML IV SCH (17:59)
[2024-06-28] MEDS: POTASSIUM CHLORIDE 40 MEQ in WATER FOR INJECTION 1 100ML.BAG IVPB STA (17:59)
[2024-06-28] MEDS: HYDROmorphone 0.5 MG/0.5 ML SYRINGE IVP PRN (19:13)
[2024-06-28] MEDS: NICOTINE 14MG/24HR PATCH TRANSDERM SCH (20:04)
[2024-06-29 05:30] VITALS: TEMP 98.1
[2024-06-29 06:18] LABS: Magnesium 2.1 mg/dL (1.6-2.3); Potassium 3.6 mmol/L (3.5-5.1)
[2024-06-29 12:23] VITALS: RESP 18
[2024-06-29] MEDS: POTASSIUM CHLORIDE ER 20 MEQ TAB.ER PO STA (12:47)
[2024-06-29 12:53] VITALS: BP 100/70; PULSE 78
--- NOTE | 2024-06-29 12:57 | P.HPIM ---
History of Present Illness Patient was sent into the hospital because of hypokalemia patient's potassium was 2.6 patient received replacement after which potassium went up to 3.6. Patient does take Lasix at home for the cirrhosis. Patient is 40 mg of Lasix. Patient denied any fever chills nausea vomiting abdominal pain diarrhea. Patient underwent paracentesis yesterday. REVIEW OF SYSTEMS: All other systems are negative except those mentioned in the HPI PHYSICAL EXAMINATION: GENERAL: The patient is alert and oriented x3, not in any acute distress. Well developed, well nourished. HEENT: Pupils are round and equally reacting to light. EOMI. No scleral icterus. No conjunctival pallor. Normocephalic, atraumatic. No pharyngeal erythema. No thyromegaly. CARDIOVASCULAR: S1 and S2 present. No murmurs, rubs, or gallops. PULMONARY: Chest is clear to auscultation, no wheezing or crackles. ABDOMEN: Soft, nontender, distended and has ascites, normoactive bowel sounds. No palpable organomegaly. MUSCULOSKELETAL: No joint swelling or deformity. EXTREMITIES: No cyanosis, clubbing, or pedal edema. NEUROLOGICAL: Gross neurological examination did not reveal any focal deficits. SKIN: No rashes. Assessment and plan -Hypokalemia: Secondary to the Lasix he was receiving. Patient will be started on Aldactone patient will continue his Lasix patient was given 40 more milligrams of potassium will be discharged today will repeat basic metabolic profile and magnesium in about 3 days and results to be faxed to PCP for any further titration of diuretics. -Alcoholic cirrhosis Nicotine use Patient will be discharged today Past Medical History Past Medical History: Hypertension, Liver Disease Additional Past Medical History / Comment(s): Nephrolithiasis, ETOH abuse with past withdrawal tremors, past alcoholic hepatitis/acute severe kidney injury/hyperphosphatemia/acute metabolic encephalopathy from renal failure. Hx. of diabetes, no longer on insulin.(30lb weight loss). Liver Cirrhosis/Ascites. low K level, high ammonia History of Any Multi-Drug Resistant Organisms: None Reported Past Surgical History: Cholecystectomy, Tonsillectomy Additional Past Surgical History / Comment(s): Paracentesis x2 Past Anesthesia/Blood Transfusion Reactions: No Reported Reaction Past Psychological History: No Psychological Hx Reported Smoking Status: Current every day smoker, Vaper Past Alcohol Use History: Abuse, Daily Past Drug Use History: Cocaine, Marijuana - Past Family History Father Family Medical History: Myocardial Infarction ([place]) Mother Family Medical History: Hypertension Additional Family Medical History / Comment(s): heart stent Medications and Allergies Home Medications Medication Instructions Recorded Confirmed Type Thiamine [Vitamin B-1] 100 mg PO DAILY #30 tab 09/30/23 06/28/24 Rx Folic Acid 1 mg PO DAILY 02/20/24 06/28/24 History Dapagliflozin Propanediol [Farxiga] 10 mg PO DAILY 03/08/24 06/28/24 History Ferrous Sulfate [Iron (65 MG 325 mg PO DAILY 05/11/24 06/28/24 History Elemental)] Pantoprazole [Protonix] 40 mg PO DAILY #30 tab 05/14/24 06/28/24 Rx Multivitamins, Thera [Multivitamin 1 tab PO DAILY 05/20/24 06/28/24 History (formulary)] Furosemide [Lasix] 40 mg PO DAILY 06/25/24 06/28/24 History Metoprolol Tartrate [Lopressor] 25 mg PO DAILY 06/25/24 06/28/24 History Spironolactone [Aldactone] 50 mg PO DAILY #30 tab 06/29/24 Rx Allergies Allergy/AdvReac Type Severity Reaction Status Date / Time No Known Allergies Allergy Verified 06/28/24 17:46 Physical Exam Vitals: Vital Signs Temp Pulse Pulse Resp BP Pulse Ox 06/29/24 12:52 78 18 100/70 98 06/29/24 12:27 75 18 95/56 97 06/29/24 12:23 71 18 148/60 96 06/29/24 11:20 80 20 85/62 95 06/29/24 07:29 63 18 107/74 98 06/29/24 05:29 98.1 F 73 16 107/73 97 06/29/24 03:51 66 16 105/57 97 06/29/24 03:00 71 16 126/66 97 06/28/24 23:32 86 16 96/53 95 06/28/24 23:09 71 16 105/57 95 06/28/24 19:53 72 16 96/53 97 06/28/24 19:07 77 18 116/72 97 06/28/24 17:56 74 06/28/24 17:55 71 18 114/60 97 06/28/24 16:01 98.4 F 76 16 102/55 97 Intake and Output 06/28/24 06/29/24 06/29/24 22:59 06:59 14:59 Other: Weight 81.647 kg Results CBC & Chem 7: 06/28/24 17:13 06/29/24 05:50 Labs: Abnormal Lab Results - Last 24 Hours (Table) 06/28/24 06/28/24 Range/Units 17:13 17:13 RBC 2.64 L (4.30-5.90) m/uL Hgb 8.7 L D (13.0-17.5) gm/dL Hct 27.2 L (39.0-53.0) % MCV 102.8 H (80.0-100.0) fL RDW 16.2 H (11.5-15.5) % Sodium 134 L (137-145) mmol/L Potassium 2.9 L (3.5-5.1) mmol/L BUN 5 L (9-20) mg/dL Creatinine 0.63 L (0.66-1.25) mg/dL Calcium 8.0 L (8.4-10.2) mg/dL
--- NOTE | 2024-06-29 12:58 | P.DS ---
Providers Date of admission: 06/28/24 17:39 Attending physician: Bora Carreno Primary care physician: Gabe [facility] Course: Patient was sent into the hospital because of hypokalemia patient's potassium was 2.6 patient received replacement after which potassium went up to 3.6. Patient does take Lasix at home for the cirrhosis. Patient is 40 mg of Lasix. Patient denied any fever chills nausea vomiting abdominal pain diarrhea. Patient underwent paracentesis yesterday. REVIEW OF SYSTEMS: All other systems are negative except those mentioned in the HPI PHYSICAL EXAMINATION: GENERAL: The patient is alert and oriented x3, not in any acute distress. Well developed, well nourished. HEENT: Pupils are round and equally reacting to light. EOMI. No scleral icterus. No conjunctival pallor. Normocephalic, atraumatic. No pharyngeal erythema. No thyromegaly. CARDIOVASCULAR: S1 and S2 present. No murmurs, rubs, or gallops. PULMONARY: Chest is clear to auscultation, no wheezing or crackles. ABDOMEN: Soft, nontender, distended and has ascites, normoactive bowel sounds. No palpable organomegaly. MUSCULOSKELETAL: No joint swelling or deformity. EXTREMITIES: No cyanosis, clubbing, or pedal edema. NEUROLOGICAL: Gross neurological examination did not reveal any focal deficits. SKIN: No rashes. Assessment and plan -Hypokalemia: Secondary to the Lasix he was receiving. Patient will be started on Aldactone patient will continue his Lasix patient was given 40 more milligrams of potassium will be discharged today will repeat basic metabolic profile and magnesium in about 3 days and results to be faxed to PCP for any further titration of diuretics. -Alcoholic cirrhosis Nicotine use Patient will be discharged today for text Patient Condition at Discharge: Fair Plan - Discharge Summary New Discharge Prescriptions: New Spironolactone [Aldactone] 50 mg PO DAILY #30 tab No Action Thiamine [Vitamin B-1] 100 mg PO DAILY #30 tab Dapagliflozin Propanediol [Farxiga] 10 mg PO DAILY Pantoprazole [Protonix] 40 mg PO DAILY #30 tab Furosemide [Lasix] 40 mg PO DAILY Folic Acid 1 mg PO DAILY Ferrous Sulfate [Iron (65 MG Elemental)] 325 mg PO DAILY Multivitamins, Thera [Multivitamin (formulary)] 1 tab PO DAILY Metoprolol Tartrate [Lopressor] 25 mg PO DAILY Discharge Medication List Thiamine [Vitamin B-1] 100 mg PO DAILY #30 tab 09/30/23 [Rx] Folic Acid 1 mg PO DAILY 02/20/24 [History] Dapagliflozin Propanediol [Farxiga] 10 mg PO DAILY 03/08/24 [History] Ferrous Sulfate [Iron (65 MG Elemental)] 325 mg PO DAILY 05/11/24 [History] Pantoprazole [Protonix] 40 mg PO DAILY #30 tab 05/14/24 [Rx] Multivitamins, Thera [Multivitamin (formulary)] 1 tab PO DAILY 05/20/24 [History] Furosemide [Lasix] 40 mg PO DAILY 06/25/24 [History] Metoprolol Tartrate [Lopressor] 25 mg PO DAILY 06/25/24 [History] Spironolactone [Aldactone] 50 mg PO DAILY #30 tab 06/29/24 [Rx] Follow up Appointment(s)/Referral(s): Gabe Flynn DO [Primary Care Provider] - 3 Days Ambulatory/Diagnostic Orders: Basic Metabolic Panel [LAB.AMB] Location: None Selected Discharge Disposition: HOME SELF-CARE
[2024-06-30] MEDS ORDERED: METOPROLOL TARTRATE 25 MG TAB PO SCH (09:00)
[2024-06-30] MEDS ORDERED: THIAMINE 100 MG TAB PO SCH (09:00)
[2024-06-30] MEDS ORDERED: PANTOPRAZOLE 40 MG TABLET PO SCH (09:00)
[2024-06-30] MEDS ORDERED: FUROSEMIDE 40 MG TAB PO SCH (09:00)
[2024-06-30] MEDS ORDERED: DAPAGLIFLOZIN PROPANEDIOL 10 MG TABLET PO SCH (09:00)
[2024-06-30] MEDS ORDERED: FOLIC ACID 1 MG TAB PO SCH (09:00)
[2024-06-30] MEDS ORDERED: FERROUS SULFATE 325 MG TAB PO SCH (09:00)
== END 2024-06-29 18:25 | disposition home or self-care (01) ==
LOC: EC 15:41 → 6NMEDSUR 17:39
PROVIDERS: ADMIT Hospitalist; ATTEND Hospitalist
DX: E87.6 Hypokalemia (principal); T50.1X5A Adverse effect of loop [high-ceiling] diuretics, initial encounter; K70.30 Alcoholic cirrhosis of liver without ascites; F17.290 Nicotine dependence, other tobacco product, uncomplicated; Z79.84 Long term (current) use of oral hypoglycemic drugs; Z79.899 Other long term (current) drug therapy
CPT/HCPCS: 96376 ×2; 96365; 96366; 96375; 99284; 36415; 93005; 80048; 83735 ×2; 84132; 85025; G0378 ×2; S4990; J3480; J1171 ×2

== ENCOUNTER → 2024-07-10 | Outpatient (CLI) | payer OTHER ==
--- NOTE | 2024-07-10 15:31 | BD ---
EXAMINATION TYPE: Axial Bone Density DATE OF EXAM: 07/10/2024 CLINICAL HISTORY: 33 years old Male. ICD-10 CODE: S32.002D UNSTABLE BURST FRACTURE , Additional Hist ory: Height: 6 ft Weight: 185 FRAX RISK QUESTIONS: Alcohol (3 or more units per day): no longer Family History (Parent hip fracture): no Glucocorticoids (More than 3mos): no (Ex: prednisone, prednisolone, methylprednisolone, dexamethasone, and hydrocortisone). History of Fracture in Adulthood: yes Secondary Osteoporosis: 1. Type 1 Diabetes: type 2 2. Hyperthyroidism: no 3. Menopause before 45: na 4. Malnutrition: no 5. Chronic liver disease: cirrhosis Rheumatoid Arthritis: no Current Tobacco Use: yes RISK FACTORS HISTORY OF: Surgery to Spine/Hip(right/left)/Wrist (right/left): lumbar surg 3-4 weeks ago MEDICATIONS: Thyroid Medications: none Osteoporosis Medications: none EXAM MEASUREMENTS: Bone mineral density about the R hip (g/cm2): 0.939 Bone mineral density about the L hip (g/cm2): 0.907 T Score values are as follows: -----R Neck: -0.7 -----L Neck: -0.9 -----R Total: 0.0 -----L Total: -0.5 Z Score values are as follows: -----R Neck: -1.1 -----L Neck: -1.3 -----R Total: -0.7 -----L Total: -1.1 baseline Bone mineral density about the L Wrist (g/cm2): 0.814 T Score values are as follows: -----Dist. R+U: 1.3 -----Prox. R+U: 0.2 -----Radius total: 0.9 Z Score values are as follows: -----Dist. R+U: -----Prox. R+U: 0.2 -----Radius total: 0.9 baseline no frax IMPRESSION: Z score is utilized due to patient's age. Values are greater than -2 which would indicate normal bone mineral density. NOTE: T-SCORE=SD OF THE YOUNG ADULT MEAN. [facility], , 07/10/2024 3:29 PM
== END | disposition home or self-care (01) ==
LOC: RADBDWWP 13:42
PROVIDERS: ATTEND Family Medicine
DX: S32.00 Fracture of unspecified lumbar vertebra (principal); E10.9 Type 1 diabetes mellitus without complications; K74.60 Unspecified cirrhosis of liver
CPT/HCPCS: 77080

== ENCOUNTER → 2024-08-17 | Day surgery (SDC) | payer OTHER ==
[2024-08-16 09:57] VITALS: BMI 22.1
[~2024-08-17] MED LIST: LACTATED RINGERS 1,000 ML IV SCH
== END ==
LOC: ORWHC2ENDO 11:46
PROVIDERS: ATTEND Internal Medicine Gastroenterology
DX: Z53.9 Procedure and treatment not carried out, unspecified reason (principal); K70.30 Alcoholic cirrhosis of liver without ascites

== ENCOUNTER 2024-08-30 03:17 | Emergency (ER) | payer OTHER ==
[2024-08-30] MEDS: SILVER NITRATE APPLICATOR 1 EACH STICK..EA. TOPICAL STA (04:26)
--- NOTE | 2024-08-30 04:26 | ED ---
General Adult HPI - General Chief complaint: ENT Stated complaint: lip bleeding Time Seen by Provider: 08/30/24 04:07 Source: patient Mode of arrival: ambulatory Limitations: no limitations - History of Present Illness Initial comments: This patient is a 33-year-old man who presents to have evaluation for bleeding from his lower lip. The patient states that it had come on tonight after he had been smoking a cigarette. He states that he removed his lip and a felt like it split and continued bleeding. He has tried holding gauze to the bleeding, but it commences to rebleed when he checks it. The patient does have history of some alcohol related liver dysfunction. The patient denies any complaints related to anemia, no orthostatic symptoms, no chest pain, dyspnea, diaphoresis, palpitations. Onset/Timin -: hour(s) Severity scale (1-10): 0 Consistency: constant Improves with: none Worsens with: none Treatments Prior to Arrival: none - Related Data Home Medications Medication Instructions Recorded Confirmed Folic Acid 1 mg PO DAILY 02/20/24 09/15/24 Dapagliflozin Propanediol [Farxiga] 10 mg PO DAILY 03/08/24 09/15/24 Ferrous Sulfate [Iron (65 MG 325 mg PO DAILY 05/11/24 09/15/24 Elemental)] Multivitamins, Thera [Multivitamin 1 tab PO DAILY 05/20/24 09/15/24 (formulary)] Furosemide [Lasix] 40 mg PO DAILY 06/25/24 09/15/24 Metoprolol Tartrate [Lopressor] 25 mg PO DAILY 06/25/24 09/15/24 Previous Rx's Medication Instructions Recorded Thiamine [Vitamin B-1] 100 mg PO DAILY #30 tab 09/30/23 Pantoprazole [Protonix] 40 mg PO DAILY #30 tab 05/14/24 Spironolactone [Aldactone] 50 mg PO DAILY #30 tab 06/29/24 Allergies Allergy/AdvReac Type Severity Reaction Status Date / Time No Known Allergies Allergy Verified 09/15/24 19:02 Review of Systems ROS Statement: Those systems with pertinent positive or pertinent negative responses have been documented in the HPI. ROS Other: All systems not noted in ROS Statement are negative. Constitutional: Denies: fever, chills Respiratory: Denies: dyspnea Cardiovascular: Denies: palpitations, syncope Skin: Reports: as per HPI, other (Bleeding) Neurological: Denies: headache Hematological/Lymphatic: Reports: easy bleeding Past Medical History Past Medical History: Diabetes Mellitus, Hypertension, Liver Disease Additional Past Medical History / Comment(s): Nephrolithiasis, ETOH abuse with past withdrawal tremors, past alcoholic hepatitis/acute severe kidney injury/hyperphosphatemia/acute metabolic encephalopathy from renal failure. Hx. of diabetes, no longer on insulin.(30lb weight loss). Liver Cirrhosis/Ascites. low K level, high ammonia History of Any Multi-Drug Resistant Organisms: None Reported Past Surgical History: Cholecystectomy, Tonsillectomy Additional Past Surgical History / Comment(s): Paracentesis x2, Past Anesthesia/Blood Transfusion Reactions: No Reported Reaction Past Psychological History: No Psychological Hx Reported Smoking Status: Current every day smoker, Vaper - Past Family History Father Family Medical History: Myocardial Infarction ([place]) Mother Family Medical History: Hypertension Additional Family Medical History / Comment(s): heart stent General Exam Limitations: no limitations General appearance: alert, in no apparent distress, appears intoxicated Head exam: Present: atraumatic, normocephalic Eye exam: Present: normal appearance. Absent: scleral icterus, conjunctival injection ENT exam: Present: other (The patient has what appears to be small continuous capillary bleeding from the lower lip margin.) Respiratory exam: Present: normal lung sounds bilaterally. Absent: respiratory distress, wheezes, rales, rhonchi, stridor, accessory muscle use Cardiovascular Exam: Present: regular rate, normal rhythm, normal heart sounds. Absent: systolic murmur, diastolic murmur, rubs, gallop GI/Abdominal exam: Present: soft. Absent: tenderness Neurological exam: Present: alert Skin exam: Present: warm, dry, normal color. Absent: rash Course Vital Signs 08/30/24 08/30/24 03:20 06:12 Temperature 98.5 F 98.7 F Pulse Rate 116 H 91 Respiratory 16 17 Rate Blood Pressure 115/67 110/71 O2 Sat by Pulse 97 97 Oximetry Medical Decision Making - Medical Decision Making I did apply silver nitrate cautery which stopped the patient's bleeding. Was pt. sent in by a medical professional or institution (, PA, [employer], urgent care, hospital, or longterm...) When possible be specific @ -[No] Did you speak to anyone other than the patient for history (EMS, parent, family, police, friend...)? What history was obtained from this source @ -[No] Did you review nursing and triage notes (agree or disagree)? Why? @ -[I reviewed and agree with nursing and triage notes] Were old charts reviewed (outside hosp., previous admission, EMS record, old EKG, old radiological studies, urgent care reports/EKG's, longterm records)? Report findings @ -[No old charts were reviewed] Differential Diagnosis (chest pain, altered mental status, abdominal pain women, abdominal pain men, vaginal bleeding, weakness, fever, dyspnea, syncope, headache, dizziness, GI bleed, back pain, seizure, CVA, palpatations, mental health, musculoskeletal)? @ -[Differential diagnosis includes simple laceration, bleeding diathesis, ar teriovenous malformation, this list not comprehensive EKG interpreted by me (3pts min.). @ -[As above] X-rays interpreted by me (1pt min.). @ -[None done] CT interpreted by me (1pt min.). @ -[None done] U/S interpreted by me (1pt. min.). @ -[None done] What testing was considered but not performed or refused? (CT, X-rays, U/S, labs)? Why? @ -[None] What meds were considered but not given or refused? Why? @ -[None] Did you discuss the management of the patient with other professionals (prof obieionals i.e. , PA, [employer], lab, RT, psych nurse, social and political studies professor, water resources engineer, teacher, community liaison officer, correctional case manager)? Give summary @ -[No] Was smoking cessation discussed for >3mins.? @ -[No] Was critical care preformed (if so, how long)? @ -[No] Were there social determinants of health that impacted care today? How? (Homelessness, low income, unemployed, alcoholism, drug addiction, transportation, low edu. Level, literacy, decrease access to med. care, half-way, rehab)? @ -[No] Was there de-escalation of care discussed even if they declined (Discuss DNR or withdrawal of care, Hospice)? DNR status @ -[No] What co-morbidities impacted this encounter? (DM, HTN, Smoking, COPD, CAD, Cancer, CVA, ARF, Chemo, Hep., AIDS, mental health diagnosis, sleep apnea, morbid obesity)? @ -[None] Was patient admitted / discharged? Hospital course, mention meds given and route, prescriptions, significant lab abnormalities, going to OR and other pertinent info. @ -[As above, used silver nitrate to achieve hemostasis and the patient is observed with no further bleeding. The patient at this point stable to follow with his physician as outpatient, discussed return parameters and follow-up Undiagnosed new problem with uncertain prognosis? @ -[No] Drug Therapy requiring intensive monitoring for toxicity (Heparin, Nitro, Insulin, Cardizem)? @ -[No] Were any procedures done? @ -[No] Diagnosis/symptom? @ -[Bleeding diathesis related to chronic liver disease Acute lip hemorrhage with silver nitrate cautery Acute, or Chronic, or Acute on Chronic? @ -[Acute Uncomplicated (without systemic symptoms) or Complicated (systemic symptoms)? @ -[Uncomplicated Side effects of treatment? @ -[No] Exacerbation, Progression, or Severe Exacerbation? @ -[No] Poses a threat to life or bodily function? How? (Chest pain, [place], [place], pneumonia, PE, COPD, DKA, ARF, appy, cholecystitis, CVA, Diverticulitis, Homicidal, Suicidal, threat to staff... and all critical care pts) @ -[No] All treatments are based on ideal body weight as in ED triage - Lab Data Result diagrams: 08/30/24 04:19 Lab Results 08/30/24 08/30/24 Range/Units 04:19 04:19 WBC 8.7 (3.8-10.6) k/uL RBC 3.70 L (4.30-5.90) m/uL Hgb 12.0 L D (13.0-17.5) gm/dL Hct 37.0 L (39.0-53.0) % MCV 99.9 (80.0-100.0) fL MCH 32.3 (25.0-35.0) pg MCHC 32.4 (31.0-37.0) g/dL RDW 14.9 (11.5-15.5) % Plt Count 95 L (150-450) k/uL MPV 7.6 Neutrophils % 59 % Lymphocytes % 29 % Monocytes % 6 % Eosinophils % 3 % Basophils % 0 % Neutrophils # 5.2 (1.3-7.7) k/uL Lymphocytes # 2.5 (1.0-4.8) k/uL Monocytes # 0.5 (0-1.0) k/uL Eosinophils # 0.2 (0-0.7) k/uL Basophils # 0.0 (0-0.2) k/uL Manual Slide Review Performed Macrocytosis Slight PT 27.3 H (10.0-12.5) sec INR 2.7 H (<1.2) APTT 33.3 H (22.0-30.0) sec Disposition Clinical Impression: Bleeding diathesis Disposition: HOME SELF-CARE Condition: Good Instructions (If sedation given, give patient instructions): Bleeding Disorders (ED) Is patient prescribed a controlled substance at d/c from ED?: No Referrals: Gabe Flynn DO [Primary Care Provider] - 1-2 days
[2024-08-30 04:37] LABS: Basophils % (A) 0 %; Eosinophils # (A) 0.2 k/uL (0-0.7); Eosinophils % (A) 3 %; Lymphocytes # (A) 2.5 k/uL (1.0-4.8); Lymphocytes % (A) 29 %; MCH 32.3 pg (25.0-35.0); MCHC 32.4 g/dL (31.0-37.0); MCV 99.9 fL (80.0-100.0); Macrocytosis Slight; Mean Platelet Volume 7.6; Monocytes # (A) 0.5 k/uL (0-1.0); Monocytes % (A) 6 %; Neutrophils # (A) 5.2 k/uL (1.3-7.7); Neutrophils % (A) 59 %; RDW 14.9 % (11.5-15.5); WBC 8.7 k/uL (3.8-10.6)
[2024-08-30 04:52] LABS: INR 2.7 (<1.2); Partial Thromboplastin Time 33.3 sec (22.0-30.0); Prothrombin Time 27.3 sec (10.0-12.5)
[2024-08-30 06:13] VITALS: BP 110/71; PULSE 91; RESP 17; TEMP 98.7
[2024-08-30 07:11] LABS: Platelet Count 95 k/uL (150-450)
== END 2024-08-30 06:26 | disposition home or self-care (01) ==
LOC: EC 03:17
DX: D69.9 Hemorrhagic condition, unspecified (principal); K74.60 Unspecified cirrhosis of liver; F17.290 Nicotine dependence, other tobacco product, uncomplicated; F17.210 Nicotine dependence, cigarettes, uncomplicated
CPT/HCPCS: 36415; 85025; 85610; 85730; 99283

== ENCOUNTER 2024-09-02 17:15 | Emergency (ER) | payer OTHER ==
[2024-09-02 17:22] VITALS: RESP 16
--- NOTE | 2024-09-02 18:08 | ED ---
Alcohol HPI - General Chief Complaint: Alcohol Stated Complaint: Possible stroke Time Seen by Provider: 09/02/24 17:33 Source: patient, RN notes reviewed Mode of arrival: ambulatory Limitations: no limitations - History of Present Illness Initial Comments: This is a 34-year-old male with history of EtOH abuse, liver disease and DM presenting for EtOH withdrawal. Patient states he has been drinking 1 pint of vodka daily for the past 5 days, with his last drink occurring at 2200 last night. Patient states he feels "terrible" with frequent nausea/vomiting, tremors and feeling of dehydration. Patient states he is interested in seeking rehab treatment. Patient states he has been at [facility] in the past for 4 days but did not enjoy his time there. Denies fever, chills, chest pain, dyspnea, hematemesis. MD Complaint: alcohol withdrawal, desires rehab Time Since Last Drink: 20 -: hour(s) Recent Trauma: No Associated Symptoms: nausea, vomiting, tremors Treatments Prior to Arrival: none Chronic Alcohol Use: Yes - Related Data Home Medications Medication Instructions Recorded Confirmed Folic Acid 1 mg PO DAILY 02/20/24 08/16/24 Dapagliflozin Propanediol [Farxiga] 10 mg PO DAILY 03/08/24 08/16/24 Ferrous Sulfate [Iron (65 MG 325 mg PO DAILY 05/11/24 08/16/24 Elemental)] Multivitamins, Thera [Multivitamin 1 tab PO DAILY 05/20/24 08/16/24 (formulary)] Furosemide [Lasix] 40 mg PO DAILY 06/25/24 08/16/24 Metoprolol Tartrate [Lopressor] 25 mg PO DAILY 06/25/24 08/16/24 Previous Rx's Medication Instructions Recorded Thiamine [Vitamin B-1] 100 mg PO DAILY #30 tab 09/30/23 Pantoprazole [Protonix] 40 mg PO DAILY #30 tab 05/14/24 Spironolactone [Aldactone] 50 mg PO DAILY #30 tab 06/29/24 Allergies Allergy/AdvReac Type Severity Reaction Status Date / Time No Known Allergies Allergy Verified 09/02/24 17:22 Review of Systems ROS Statement: Those systems with pertinent positive or pertinent negative responses have been documented in the HPI. ROS Other: All systems not noted in ROS Statement are negative. Past Medical History Past Medical History: Diabetes Mellitus, Hypertension, Liver Disease Additional Past Medical History / Comment(s): Nephrolithiasis, ETOH abuse with past withdrawal tremors, past alcoholic hepatitis/acute severe kidney injury/hyperphosphatemia/acute metabolic encephalopathy from renal failure. Hx. of diabetes, no longer on insulin.(30lb weight loss). Liver Cirrhosis/Ascites. low K level, high ammonia History of Any Multi-Drug Resistant Organisms: None Reported Past Surgical History: Cholecystectomy, Tonsillectomy Additional Past Surgical History / Comment(s): Paracentesis x2, Past Anesthesia/Blood Transfusion Reactions: No Reported Reaction Past Psychological History: No Psychological Hx Reported Smoking Status: Current every day smoker, Vaper Past Alcohol Use History: Abuse, Daily, Heavy Past Drug Use History: Marijuana - Past Family History Father Family Medical History: Myocardial Infarction ([place]) Mother Family Medical History: Hypertension Additional Family Medical History / Comment(s): heart stent General Exam Limitations: no limitations General appearance: alert, in no apparent distress Head exam: Present: atraumatic, normocephalic, normal inspection Eye exam: Present: PERRL, EOMI, scleral icterus ENT exam: Present: normal exam, mucous membranes moist Neck exam: Present: normal inspection. Absent: tenderness, meningismus, lymphadenopathy Respiratory exam: Present: normal lung sounds bilaterally. Absent: respiratory distress, wheezes, rales, rhonchi, stridor Cardiovascular Exam: Present: regular rate, normal rhythm, normal heart sounds. Absent: systolic murmur, diastolic murmur, rubs, gallop, clicks GI/Abdominal exam: Present: soft, distended, normal bowel sounds. Absent: tenderness, guarding, rebound, rigid Extremities exam: Present: normal inspection, full ROM, normal capillary refill. Absent: tenderness, pedal edema, joint swelling, calf tenderness Back exam: Present: normal inspection Neurological exam: Present: alert, oriented X3, CN II-XII intact Psychiatric exam: Present: normal affect, normal mood Skin exam: Present: warm, dry, intact, normal color. Absent: rash Course Vital Signs 09/02/24 17:18 Temperature 97.9 F Pulse Rate 111 H Respiratory 16 Rate Blood Pressure 140/88 O2 Sat by Pulse 99 Oximetry Medical Decision Making - Medical Decision Making Was pt. sent in by a medical professional or institution (, PA, [employer]ANCE CH[employer]OGRAPHER, urgent care, hospital, or group home...) When possible be specific @ -[No] Did you speak to anyone other than the patient for history (EMS, parent, family, police, friend...)? What history was obtained from this source @ -[No] Did you review nursing and triage notes (agree or disagree)? Why? @ -[I reviewed and agree with nursing and triage notes] Were old charts reviewed (outside hosp., previous admission, EMS record, old EKG, old radiological studies, urgent care reports/EKG's, group home records)? Report findings @ -[No old charts were reviewed] Differential Diagnosis (chest pain, altered mental status, abdominal pain women, abdominal pain men, vaginal bleeding, weakness, fever, dyspnea, syncope, headache, dizziness, GI bleed, back pain, seizure, CVA, palpatations, mental health, musculoskeletal)? @ -Alcohol intoxication, alcohol withdrawal, Wernicke Korsakoff syndrome, esse ntial tremor, cirrhosis, gastroenteritis, this is not an exhaustive list EKG interpreted by me (3pts min.). @ -[As above] X-rays interpreted by me (1pt min.). @ -[None done] CT interpreted by me (1pt min.). @ -[None done] U/S interpreted by me (1pt. min.). @ -[None done] What testing was considered but not performed or refused? (CT, X-rays, U/S, labs)? Why? @ -[None] What meds were considered but not given or refused? Why? @ -[None] Did you discuss the management of the patient with other professionals (professionals i.e. , PA, DANCE CHOREOGRAPHER, lab, RT, psych nurse, social sciences professor, horticultural specialty grower field, teacher, chief green officer, director case)? Give summary @ -[No] Was smoking cessation discussed for >3mins.? @ -[No] Was critical care preformed (if so, how long)? @ -[No] Were there social determinants of health that impacted care today? How? (Homelessness, low income, unemployed, alcoholism, drug addiction, transp ortation, low edu. Level, literacy, decrease access to med. care, correction, rehab)? @ -Alcoholism Was there de-escalation of care discussed even if they declined (Discuss DNR or withdrawal of care, Hospice)? DNR status @ -[No] What co-morbidities impacted this encounter? (DM, HTN, Smoking, COPD, CAD, Ca ncer, CVA, ARF, Chemo, Hep., AIDS, mental health diagnosis, sleep apnea, morbid obesity)? @ -[None] Was patient admitted / discharged? Hospital course, mention meds given and route, prescriptions, significant lab abnormalities, going to OR and other pertinent info. @ -[hospital course] Undiagnosed new problem with uncertain prognosis? @ -[No] Drug Therapy requiring intensive monitoring for toxicity (Heparin, Nitro, Insulin, Cardizem)? @ -[No] Were any procedures done? @ -[No] Diagnosis/symptom? @ -[default] Acute, or Chronic, or Acute on Chronic? @ -Acute on chronic Uncomplicated (without systemic symptoms) or Complicated (systemic symptoms)? @ -Complicated Side effects of treatment? @ -[No] Exacerbation, Progression, or Severe Exacerbation? @ -[No] Poses a threat to life or bodily function? How? (Chest pain, [place], [place], pneumonia, PE, COPD, DKA, ARF, appy, cholecystitis, CVA, Diverticulitis, Homicidal, Suicidal, threat to staff... and all critical care pts) @ -[No] - Lab Data Result diagrams: 09/02/24 18:14 09/02/24 18:14 Lab Results 09/02/24 09/02/24 09/02/24 Range/Units 18:14 18:14 19:00 WBC 6.5 (3.8-10.6) k/uL RBC 4.26 L (4.30-5.90) m/uL Hgb 13.9 (13.0-17.5) gm/dL Hct 42.8 (39.0-53.0) % MCV 100.5 H (80.0-100.0) fL MCH 32.5 (25.0-35.0) pg MCHC 32.4 (31.0-37.0) g/dL RDW 15.2 (11.5-15.5) % Plt Count 100 L (150-450) k/uL MPV 7.5 Neutrophils % 66 % Lymphocytes % 22 % Monocytes % 7 % Eosinophils % 3 % Basophils % 0 % Neutrophils # 4.3 (1.3-7.7) k/uL Lymphocytes # 1.4 (1.0-4.8) k/uL Monocytes # 0.4 (0-1.0) k/uL Eosinophils # 0.2 (0-0.7) k/uL Basophils # 0.0 (0-0.2) k/uL Hypochromasia Slight Macrocytosis Slight Sodium 144 (137-145) mmol/L Potassium 3.3 L (3.5-5.1) mmol/L Chloride 104 (98-107) mmol/L Carbon Dioxide 28 (22-30) mmol/L Anion Gap 12 mmol/L BUN 4 L (9-20) mg/dL Creatinine 0.58 L (0.66-1.25) mg/dL Est GFR (CKD-EPI)AfAm >90 (>60 ml/min/1.73 sqM) Est GFR (CKD-EPI)NonAf >90 (>60 ml/min/1.73 sqM) Glucose 139 H (74-99) mg/dL Calcium 8.4 (8.4-10.2) mg/dL Phosphorus 2.7 (2.5-4.5) mg/dL Magnesium 1.9 (1.6-2.3) mg/dL Total Bilirubin 4.5 H (0.2-1.3) mg/dL AST 229 H (17-59) U/L ALT 44 (4-49) U/L Alkaline Phosphatase 537 H (38-126) U/L Total Protein 9.2 H (6.3-8.2) g/dL Albumin 3.7 (3.5-5.0) g/dL Amylase 72 (30-110) U/L Lipase 222 (23-300) U/L Urine Color Dark Brown Urine Appearance Turbid (Clear) Urine pH 6.0 (5.0-8.0) Ur Specific [place] 1.030 (1.001-1.035) Urine Protein 2+ H (Negative) Urine Glucose (UA) 1+ H (Negative) Urine Ketones Negative (Negative) Urine Blood Negative (Negative) Urine Nitrite Negative (Negative) Urine Bilirubin 2+ H (Negative) Urine Urobilinogen 8.0 (<2.0) mg/dL Ur Leukocyte Esterase Negative (Negative) Urine RBC 1 (0-5) /hpf Urine WBC 3 (0-5) /hpf Ur Squamous Epith Cells <1 (0-4) /hpf Amorphous Sediment Moderate H (None) /hpf Urine Mucus Many H (None) /hpf Serum Alcohol 192 mg/dL Disposition Clinical Impression: Alcohol withdrawal, Dehydration Disposition: HOME SELF-CARE Condition: Good Instructions (If sedation given, give patient instructions): Alcohol Withdrawal (ED) Additional Instructions: Follow-up with one of the rehab centers provided on print out for ongoing treatment. Is patient prescribed a controlled substance at d/c from ED?: No Referrals: Gabe Flynn DO [Primary Care Provider] - 1-2 days Time of Disposition: 19:35
[2024-09-02 18:27] LABS: Basophils % (A) 0 %; Eosinophils # (A) 0.2 k/uL (0-0.7); Eosinophils % (A) 3 %; HCT 42.8 % (39.0-53.0); HGB 13.9 gm/dL (13.0-17.5); Hypochromasia Slight; Lymphocytes # (A) 1.4 k/uL (1.0-4.8); Lymphocytes % (A) 22 %; MCH 32.5 pg (25.0-35.0); MCHC 32.4 g/dL (31.0-37.0); MCV 100.5 fL (80.0-100.0); Macrocytosis Slight; Mean Platelet Volume 7.5; Monocytes # (A) 0.4 k/uL (0-1.0); Monocytes % (A) 7 %; Neutrophils # (A) 4.3 k/uL (1.3-7.7); Neutrophils % (A) 66 %; Platelet Count 100 k/uL (150-450); RBC 4.26 m/uL (4.30-5.90); RDW 15.2 % (11.5-15.5); WBC 6.5 k/uL (3.8-10.6)
[2024-09-02 18:39] LABS: ALT 44 U/L (4-49); AST 229 U/L (17-59); African American GFR (CKD) >90 (>60 ml/min/1.73 sqM); Albumin 3.7 g/dL (3.5-5.0); Alkaline Phosphatase 537 U/L (38-126); Amylase 72 U/L (30-110); Anion Gap 12 mmol/L; Blood Urea Nitrogen 4 mg/dL (9-20); Calcium 8.4 mg/dL (8.4-10.2); Carbon Dioxide 28 mmol/L (22-30); Chloride 104 mmol/L (98-107); Glucose 139 mg/dL (74-99); Lipase 222 U/L (23-300); Magnesium 1.9 mg/dL (1.6-2.3); Non-African American GFR(CKD) >90 (>60 ml/min/1.73 sqM); Phosphorus 2.7 mg/dL (2.5-4.5); Potassium 3.3 mmol/L (3.5-5.1); Sodium 144 mmol/L (137-145); Total Bilirubin 4.5 mg/dL (0.2-1.3); Total Protein 9.2 g/dL (6.3-8.2)
[2024-09-02 18:52] LABS: Alcohol 192 mg/dL
[2024-09-02] MEDS: POTASSIUM CHLORIDE ER 20 MEQ TAB.ER PO STA (19:03)
[2024-09-02] MEDS: SODIUM CHLORIDE 0.9% 1,000 ML IV STA (19:03)
[2024-09-02] MEDS: LORazepam 2 MG/ML INJ IV STA (19:03)
[2024-09-02] MEDS: ONDANSETRON 4 MG/2 ML VIAL IVP STA (19:04)
[2024-09-02] MEDS: THIAMINE 100 MG/ML 2 ML VIAL IM STA (19:04)
[2024-09-02 19:29] LABS: Amorphous Sediment,Urine Moderate /hpf; Appearance,Urine Turbid (Clear); Bilirubin,Urine 2+ (Negative); Blood,Urine Negative (Negative); Color,Urine Dark Brown; Glucose,Urine (UA) 1+ (Negative); Ketones,Urine Negative (Negative); Leukocyte Esterase,Urine Negative (Negative); Mucus,Urine Many /hpf; Nitrite,Urine Negative (Negative); Protein,Urine 2+ (Negative); RBC,Urine 1 /hpf (0-5); Squamous Epithelial Cell,Urine <1 /hpf (0-4); WBC,Urine 3 /hpf (0-5)
[2024-09-02 19:31] LABS: Amphetamine Screen,Urine Detected (NotDetected); Barbiturate Screen,Urine Not Detected (NotDetected); Benzodiazepines Screen,Urine Detected (NotDetected); Cocaine Screen,Urine Not Detected (NotDetected); Methadone Screen, Urine Not Detected (NotDetected); Opiate Screen,Urine Not Detected (NotDetected); Oxycodone Screen, Urine Not Detected (NotDetected); Phencyclidine Screen,Urine Not Detected (NotDetected); Tricyclic Antidepressant,Urine Detected (NotDetected); Urn Cannabinoid Scrn Detected (NotDetected)
[2024-09-02] MEDS: ONDANSETRON 4 MG ODT STARTER PACK 2 TAB BTL PO STA (20:09)
[2024-09-02 20:13] VITALS: BP 116/69; PULSE 93; TEMP 98
== END 2024-09-02 20:12 | disposition home or self-care (01) ==
LOC: EC 17:15
DX: F10.239 Alcohol dependence with withdrawal, unspecified (principal); E86.0 Dehydration; F17.290 Nicotine dependence, other tobacco product, uncomplicated; Y90.6 Blood alcohol level of 120-199 mg/100 ml
CPT/HCPCS: 36415; 93005; 80053; 82150; 83690; 83735; 84100; 85025; 81001; 80306; 99284; 96374; 96375; 96361; 96372; G0480; J2060; J3411; J2405; S0119; 80320

== ENCOUNTER 2024-09-15 16:15 | Inpatient (IN) | payer OTHER ==
--- NOTE | 2024-09-15 16:52 | ED ---
Nausea/Vomiting/Diarrhea HPI - General Chief complaint: Nausea/Vomiting/Diarrhea Stated complaint: vomiting Time Seen by Provider: 09/15/24 16:49 Source: patient, RN notes reviewed, old records reviewed Mode of arrival: ambulatory Limitations: no limitations - History of Present Illness Initial comments: This is a 34 male this patient presents today for evaluation of nausea vomiting severe nausea and vomiting here in the ER was admission of recent drinking episodes. Patient states he is history of cirrhosis, here in the ER for elevated heart rate lightheadedness dizziness and cannot stop puking MD complaint: nausea, vomiting -: days(s) Description of Vomiting: watery Location: diffuse Radiation: none Severity: moderate Severity scale (1-10): 7 Quality: cramping, aching Consistency: constant Improves with: none Worsens with: none Context: other Associated Symptoms: denies other symptoms - Related Data Home Medications Medication Instructions Recorded Confirmed Folic Acid 1 mg PO DAILY 02/20/24 09/15/24 Dapagliflozin Propanediol [Farxiga] 10 mg PO DAILY 03/08/24 09/15/24 Ferrous Sulfate [Iron (65 MG 325 mg PO DAILY 05/11/24 09/15/24 Elemental)] Multivitamins, Thera [Multivitamin 1 tab PO DAILY 05/20/24 09/15/24 (formulary)] Furosemide [Lasix] 40 mg PO DAILY 06/25/24 09/15/24 Metoprolol Tartrate [Lopressor] 25 mg PO DAILY 06/25/24 09/15/24 Previous Rx's Medication Instructions Recorded Thiamine [Vitamin B-1] 100 mg PO DAILY #30 tab 09/30/23 Pantoprazole [Protonix] 40 mg PO DAILY #30 tab 05/14/24 Spironolactone [Aldactone] 50 mg PO DAILY #30 tab 06/29/24 Allergies Allergy/AdvReac Type Severity Reaction Status Date / Time No Known Allergies Allergy Verified 09/15/24 19:02 Review of Systems ROS Statement: Those systems with pertinent positive or pertinent negative responses have been documented in the HPI. ROS Other: All systems not noted in ROS Statement are negative. Past Medical History Past Medical History: Diabetes Mellitus, Hypertension, Liver Disease Additional Past Medical History / Comment(s): Nephrolithiasis, ETOH abuse with past withdrawal tremors, past alcoholic hepatitis/acute severe kidney injury/hyperphosphatemia/acute metabolic encephalopathy from renal failure. Hx. of diabetes, no longer on insulin.(30lb weight loss). Liver Cirrhosis/Ascites. low K level, high ammonia History of Any Multi-Drug Resistant Organisms: None Reported Past Surgical History: Cholecystectomy, Tonsillectomy Additional Past Surgical History / Comment(s): Paracentesis x2, Past Anesthesia/Blood Transfusion Reactions: No Reported Reaction Past Psychological History: No Psychological Hx Reported Smoking Status: Current every day smoker, Vaper Past Alcohol Use History: Abuse, Daily, Heavy Past Drug Use History: Marijuana - Past Family History Father Family Medical History: Myocardial Infarction (SD) Mother Family Medical History: Hypertension Additional Family Medical History / Comment(s): heart stent General Exam Limitations: no limitations General appearance: alert, in no apparent distress Head exam: Present: atraumatic, normocephalic, normal inspection Eye exam: Present: normal appearance, PERRL, EOMI. Absent: scleral icterus, conjunctival injection, periorbital swelling ENT exam: Present: normal exam, mucous membranes moist Neck exam: Present: normal inspection. Absent: tenderness, meningismus, lymphadenopathy Respiratory exam: Present: normal lung sounds bilaterally. Absent: respiratory distress, wheezes, rales, rhonchi, stridor Cardiovascular Exam: Present: regular rate, normal rhythm, normal heart sounds. Absent: systolic murmur, diastolic murmur, rubs, gallop, clicks GI/Abdominal exam: Present: soft, normal bowel sounds. Absent: distended, tenderness, guarding, rebound, rigid Extremities exam: Present: normal inspection, full ROM, normal capillary refill. Absent: tenderness, pedal edema, joint swelling, calf tenderness Back exam: Present: normal inspection Neurological exam: Present: alert, oriented X3, CN II-XII intact Psychiatric exam: Present: normal affect, normal mood Skin exam: Present: warm, dry, intact, normal color. Absent: rash Course Vital Signs 09/15/24 09/15/24 09/15/24 16:36 16:52 17:25 Temperature 98.1 F Pulse Rate 146 H 126 H 117 H Respiratory 19 20 22 Rate Blood Pressure 149/84 139/73 122/75 O2 Sat by Pulse 98 98 98 Oximetry 09/15/24 09/15/24 09/15/24 18:58 19:35 21:18 Temperature Pulse Rate 125 H 122 H 113 H Respiratory 19 18 18 Rate Blood Pressure 117/71 120/63 91/53 O2 Sat by Pulse 97 95 97 Oximetry 09/15/24 09/15/24 22:08 22:31 Temperature Pulse Rate 114 H 111 H Respiratory 18 16 Rate Blood Pressure 116/68 100/58 O2 Sat by Pulse 97 95 Oximetry - Reevaluation(s) Reevaluation #1: 09/15/24 17:01 Medical records reviewed Reevaluation #2: 09/15/24 19:42 Patient symptoms unchanged here in the ER Reevaluation #3: 09/15/24 19:42 Patient informed of results and questions answered Reevaluation #4: Was pt. sent in by a medical professional or institution (, [facility], EPIC PROFESSIONAL, urgent care, hospital, or intermediate...) When possible be specific @ -no Did you speak to anyone other than the patient for history (EMS, parent, family, police, friend...)? What history was obtained from this source @ -no Did you review nursing and triage notes (agree or disagree)? Why? @ -agree Are old charts reviewed (outside hosp., previous admission, EMS record, old EKG, old radiological studies, urgent care reports/EKG's, intermediate records)? Report findings @ -yes Differential Diagnosis (chest pain, altered mental status, abdominal pain women, abdominal pain men, vaginal bleeding, weakness, fever, dyspnea, syncope, headache, dizziness, GI bleed, back pain, seizure, CVA, palpatations, mental health, musculoskeletal)? @ -prior EKG interpreted by me (3pts min.). @ -yes X-rays interpreted by me (1pt min.). @ -no CT interpreted by me (1pt min.). @ -no U/S interpreted by me (1pt. min.). @ -no What testing was considered but not performed or refused? (CT, X-rays, U/S, labs)? Why? @ -none What meds were considered but not given or refused? Why? @ -none Did you discuss the management of the patient with other professionals (professionals i.e. [facility] Frey, EPIC PROFESSIONAL, lab, RT, psych nurse, adoption social worker, class a lineman, teacher, guest relation officer, lining caser)? Give summary @ -no Was smoking cessation discussed for >3mins.? @ -no Was critical care preformed (if so, how long)? @ -[id number] Were there social determinants of health that impacted care today? How? (Homelessness, low income, unemployed, alcoholism, drug addiction, transportation, low edu. Level, literacy, decrease access to med. care, assisted, rehab)? @ -none Was there de-escalation of care discussed even if they declined (Discuss DNR or withdrawal of care, Hospice)? DNR status @ -no What co-morbidities impacted this encounter? (DM, HTN, Smoking, COPD, CAD, Cancer, CVA, ARF, Chemo, Hep., AIDS, mental health diagnosis, sleep apnea, morbid obesity)? @ -none Was patient admitted / discharged? Hospital course, mention meds given and route, prescriptions, significant lab abnormalities, going to OR and other pertinent info. @ - 34 male will be admitted for severe cirrhosis patient has history of alcoholic induced cirrhosis and coming in with multiple lab and medical abnormalities Admitted Undiagnosed new problem with uncertain prognosis? @ -no Drug Therapy requiring intensive monitoring for toxicity (Heparin, Nitro, Insulin, Cardizem)? @ -no Were any procedures done? @ -no Diagnosis/symptom? @ -Alcoholic liver cirrhosis with multiple medical abnormalities, hepatic encephalopathy, alcoholic ketoacidosis Acute, or Chronic, or Acute on Chronic? @ -Acute Uncomplicated (without systemic symptoms) or Complicated (systemic symptoms)? @ -Complicated Side effects of treatment? @ -no Exacerbation, Progression, or Severe Exacerbation? @ -exacerbation Poses a threat to life or bodily function? How? (Chest pain, USA, SD, pneumonia, PE, COPD, DKA, ARF, appy, cholecystitis, CVA, Diverticulitis, Homicidal, Suicidal, threat to staff... and all critical care pts) @ -yes severe alcoholic related illness Reevaluation #5: Differential Weakness: Hypoglycemia, shock, sepsis, hyponatremia, anemia, infection, SD, ETOH, adverse medicine reaction, overdose, stroke, this is not meant to be an all-inclusive list. - Consultations Consultation #1: Spoke with [facility] who agrees to admit this patient Medical Decision Making - Medical Decision Making 34 male will be admitted for severe cirrhosis patient has history of alcoholic induced cirrhosis and coming in with multiple lab and medical abnormalities - Lab Data Result diagrams: 09/22/24 11:34 09/22/24 11:34 Lab Results 09/15/24 09/15/24 09/15/24 Range/Units 17:13 17:13 17:13 WBC 11.5 H (3.8-10.6) k/uL RBC 3.49 L (4.30-5.90) m/uL Hgb 11.6 L (13.0-17.5) gm/dL Hct 36.1 L (39.0-53.0) % MCV 103.3 H (80.0-100.0) fL MCH 33.2 (25.0-35.0) pg MCHC 32.1 (31.0-37.0) g/dL RDW 17.3 H (11.5-15.5) % Plt Count 105 L (150-450) k/uL MPV 8.4 Neutrophils % 70 % Lymphocytes % 19 % Monocytes % 7 % Eosinophils % 1 % Basophils % 0 % Neutrophils # 8.0 H (1.3-7.7) k/uL Lymphocytes # 2.2 (1.0-4.8) k/uL Monocytes # 0.8 (0-1.0) k/uL Eosinophils # 0.1 (0-0.7) k/uL Basophils # 0.0 (0-0.2) k/uL Anisocytosis Slight Macrocytosis Moderate PT 29.2 H (10.0-12.5) sec INR 2.9 H (<1.2) APTT 40.8 H (22.0-30.0) sec Sodium 137 (137-145) mmol/L Potassium 2.6 L* (3.5-5.1) mmol/L Chloride 92 L (98-107) mmol/L Carbon Dioxide 29 (22-30) mmol/L Anion Gap 16 mmol/L BUN 2 L (9-20) mg/dL Creatinine 0.60 L (0.66-1.25) mg/dL Est GFR (CKD-EPI)AfAm >90 (>60 ml/min/1.73 sqM) Est GFR (CKD-EPI)NonAf >90 (>60 ml/min/1.73 sqM) Glucose 137 H (74-99) mg/dL Lactic Ac Sepsis Rflx Plasma Lactic Acid Raul (0.7-2.0) mmol/L Calcium 8.5 (8.4-10.2) mg/dL Phosphorus 1.7 L (2.5-4.5) mg/dL Magnesium 1.3 L (1.6-2.3) mg/dL Total Bilirubin 18.2 H* (0.2-1.3) mg/dL AST 247 H (17-59) U/L ALT 39 (4-49) U/L Alkaline Phosphatase 565 H (38-126) U/L Ammonia (<30) umol/L Troponin I (0.000-0.034) ng/mL Total Protein 9.0 H (6.3-8.2) g/dL Albumin 3.4 L (3.5-5.0) g/dL Lipase 129 (23-300) U/L TSH 2.070 (0.465-4.680) mIU/L Urine Color Urine Appearance (Clear) Urine pH (5.0-8.0) Ur Specific Hardin (1.001-1.035) Urine Protein (Negative) Urine Glucose (UA) (Negative) Urine Ketones (Negative) Urine Blood (Negative) Urine Nitrite (Negative) Urine Bilirubin (Negative) Urine Urobilinogen (<2.0) mg/dL Ur Leukocyte Esterase (Negative) Urine Opiates Screen (NotDetected) Ur Oxycodone Screen (NotDetected) Urine Methadone Screen (NotDetected) Ur Barbiturates Screen (NotDetected) U Tricyclic Antidepress (NotDetected) Ur Phencyclidine Scrn (NotDetected) Ur Amphetamines Screen (NotDetected) U Methamphetamines Scrn (NotDetected) U Benzodiazepines Scrn (NotDetected) Urine Cocaine Screen (NotDetected) U Marijuana (THC) Screen (NotDetected) Serum Alcohol 340 H* mg/dL 09/15/24 09/15/24 09/15/24 Range/Units 17:13 17:13 17:52 WBC (3.8-10.6) k/uL RBC (4.30-5.90) m/uL Hgb (13.0-17.5) gm/dL Hct (39.0-53.0) % MCV (80.0-100.0) fL MCH (25.0-35.0) pg MCHC (31.0-37.0) g/dL RDW (11.5-15.5) % Plt Count (150-450) k/uL MPV Neutrophils % % Lymphocytes % % Monocytes % % Eosinophils % % Basophils % % Neutrophils # (1.3-7.7) k/uL Lymphocytes # (1.0-4.8) k/uL Monocytes # (0-1.0) k/uL Eosinophils # (0-0.7) k/uL Basophils # (0-0.2) k/uL Anisocytosis Macrocytosis PT (10.0-12.5) sec INR (<1.2) APTT (22.0-30.0) sec Sodium (137-145) mmol/L Potassium (3.5-5.1) mmol/L Chloride (98-107) mmol/L Carbon Dioxide (22-30) mmol/L Anion Gap mmol/L BUN (9-20) mg/dL Creatinine (0.66-1.25) mg/dL Est GFR (CKD-EPI)AfAm (>60 ml/min/1.73 sqM) Est GFR (CKD-EPI)NonAf (>60 ml/min/1.73 sqM) Glucose (74-99) mg/dL Lactic Ac Sepsis Rflx Y Plasma Lactic Acid Raul 5.2 H* (0.7-2.0) mmol/L Calcium (8.4-10.2) mg/dL Phosphorus (2.5-4.5) mg/dL Magnesium (1.6-2.3) mg/dL Total Bilirubin (0.2-1.3) mg/dL AST (17-59) U/L ALT (4-49) U/L Alkaline Phosphatase (38-126) U/L Ammonia 61 H (<30) umol/L Troponin I <0.012 (0.000-0.034) ng/mL Total Protein (6.3-8.2) g/dL Albumin (3.5-5.0) g/dL Lipase (23-300) U/L TSH (0.465-4.680) mIU/L Urine Color Urine Appearance (Clear) Urine pH (5.0-8.0) Ur Specific Hardin (1.001-1.035) Urine Protein (Negative) Urine Glucose (UA) (Negative) Urine Ketones (Negative) Urine Blood (Negative) Urine Nitrite (Negative) Urine Bilirubin (Negative) Urine Urobilinogen (<2.0) mg/dL Ur Leukocyte Esterase (Negative) Urine Opiates Screen (NotDetected) Ur Oxycodone Screen (NotDetected) Urine Methadone Screen (NotDetected) Ur Barbiturates Screen (NotDetected) U Tricyclic Antidepress (NotDetected) Ur Phencyclidine Scrn (NotDetected) Ur Amphetamines Screen (NotDetected) U Methamphetamines Scrn (NotDetected) U Benzodiazepines Scrn (NotDetected) Urine Cocaine Screen (NotDetected) U Marijuana (THC) Screen (NotDetected) Serum Alcohol mg/dL 09/15/24 09/15/24 Range/Units 18:00 18:00 WBC (3.8-10.6) k/uL RBC (4.30-5.90) m/uL Hgb (13.0-17.5) gm/dL Hct (39.0-53.0) % MCV (80.0-100.0) fL MCH (25.0-35.0) pg MCHC (31.0-37.0) g/dL RDW (11.5-15.5) % Plt Count (150-450) k/uL MPV Neutrophils % % Lymphocytes % % Monocytes % % Eosinophils % % Basophils % % Neutrophils # (1.3-7.7) k/uL Lymphocytes # (1.0-4.8) k/uL Monocytes # (0-1.0) k/uL Eosinophils # (0-0.7) k/uL Basophils # (0-0.2) k/uL Anisocytosis Macrocytosis PT (10.0-12.5) sec INR (<1.2) APTT (22.0-30.0) sec Sodium (137-145) mmol/L Potassium (3.5-5.1) mmol/L Chloride (98-107) mmol/L Carbon Dioxide (22-30) mmol/L Anion Gap mmol/L BUN (9-20) mg/dL Creatinine (0.66-1.25) mg/dL Est GFR (CKD-EPI)AfAm (>60 ml/min/1.73 sqM) Est GFR (CKD-EPI)NonAf (>60 ml/min/1.73 sqM) Glucose (74-99) mg/dL Lactic Ac Sepsis Rflx Plasma Lactic Acid Raul (0.7-2.0) mmol/L Calcium (8.4-10.2) mg/dL Phosphorus (2.5-4.5) mg/dL Magnesium (1.6-2.3) mg/dL Total Bilirubin (0.2-1.3) mg/dL AST (17-59) U/L ALT (4-49) U/L Alkaline Phosphatase (38-126) U/L Ammonia (<30) umol/L Troponin I (0.000-0.034) ng/mL Total Protein (6.3-8.2) g/dL Albumin (3.5-5.0) g/dL Lipase (23-300) U/L TSH (0.465-4.680) mIU/L Urine Color Dark Brown Urine Appearance Clear (Clear) Urine pH 7.0 (5.0-8.0) Ur Specific Hardin 1.012 (1.001-1.035) Urine Protein Trace H (Negative) Urine Glucose (UA) Negative (Negative) Urine Ketones Negative (Negative) Urine Blood Negative (Negative) Urine Nitrite Negative (Negative) Urine Bilirubin 4+ H (Negative) Urine Urobilinogen 3.0 (<2.0) mg/dL Ur Leukocyte Esterase Negative (Negative) Urine Opiates Screen Not Detected (NotDetected) Ur Oxycodone Screen Not Detected (NotDetected) Urine Methadone Screen Not Detected (NotDetected) Ur Barbiturates Screen Not Detected (NotDetected) U Tricyclic Antidepress Not Detected (NotDetected) Ur Phencyclidine Scrn Not Detected (NotDetected) Ur Amphetamines Screen Not Detected (NotDetected) U Methamphetamines Scrn Not Detected (NotDetected) U Benzodiazepines Scrn Not Detected (NotDetected) Urine Cocaine Screen Not Detected (NotDetected) U Marijuana (THC) Screen Detected H (NotDetected) Serum Alcohol mg/dL - EKG Data -: EKG Interpreted by Me (EKG is tachycardia 115 MT 247 QRS 97 QTc 427) Critical Care Time Critical Care Time: Yes Total Critical Care Time: 31 Disposition Clinical Impression: Nausea & vomiting, Alcohol withdrawal, Acute renal failure, Transaminitis, Alcoholic cirrhosis of liver, Ascites, Hypokalemia, Hypomagnesemia, Metabolic acidosis, Hyperammonemia, Liver failure, Hypertensive urgency Disposition: ADMITTED IP TO THIS HOSP Condition: Serious Is patient prescribed a controlled substance at d/c from ED?: No Time of Disposition: 19:00
[2024-09-15] MEDS ORDERED: LORazepam 2 MG/ML INJ IV PRN ×2 (16:53)
[2024-09-15] MEDS ORDERED: LORazepam 1 MG TAB PO PRN ×2 (16:53)
[2024-09-15 17:21] LABS: Anisocytosis Slight; Basophils % (A) 0 %; Eosinophils # (A) 0.1 k/uL (0-0.7); Eosinophils % (A) 1 %; HCT 36.1 % (39.0-53.0); HGB 11.6 gm/dL (13.0-17.5); Lymphocytes # (A) 2.2 k/uL (1.0-4.8); Lymphocytes % (A) 19 %; MCH 33.2 pg (25.0-35.0); MCHC 32.1 g/dL (31.0-37.0); MCV 103.3 fL (80.0-100.0); Macrocytosis Moderate; Mean Platelet Volume 8.4; Monocytes # (A) 0.8 k/uL (0-1.0); Monocytes % (A) 7 %; Neutrophils % (A) 70 %; Platelet Count 105 k/uL (150-450); RBC 3.49 m/uL (4.30-5.90); RDW 17.3 % (11.5-15.5); WBC 11.5 k/uL (3.8-10.6)
[2024-09-15] MEDS: ONDANSETRON 4 MG/2 ML VIAL IVP STA (17:23)
[2024-09-15] MEDS: SODIUM CHLORIDE 0.9% 1,000 ML IV SCH ×2 (17:23→17:24)
[2024-09-15 17:33] LABS: ALT 39 U/L (4-49); AST 247 U/L (17-59); African American GFR (CKD) >90 (>60 ml/min/1.73 sqM); Albumin 3.4 g/dL (3.5-5.0); Alkaline Phosphatase 565 U/L (38-126); Anion Gap 16 mmol/L; Blood Urea Nitrogen 2 mg/dL (9-20); Calcium 8.5 mg/dL (8.4-10.2); Carbon Dioxide 29 mmol/L (22-30); Chloride 92 mmol/L (98-107); Glucose 137 mg/dL (74-99); Lipase 129 U/L (23-300); Magnesium 1.3 mg/dL (1.6-2.3); Non-African American GFR(CKD) >90 (>60 ml/min/1.73 sqM); Phosphorus 1.7 mg/dL (2.5-4.5); Sodium 137 mmol/L (137-145)
[2024-09-15 17:51] LABS: INR 2.9 (<1.2); Partial Thromboplastin Time 40.8 sec (22.0-30.0); Prothrombin Time 29.2 sec (10.0-12.5)
[2024-09-15 17:52] LABS: Alcohol 340 mg/dL; Lactic Acid, Venous 5.2 mmol/L (0.7-2.0)
[2024-09-15 17:53] LABS: Potassium 2.6 mmol/L (3.5-5.1); Total Bilirubin 18.2 mg/dL (0.2-1.3)
[2024-09-15 18:18] LABS: Appearance,Urine Clear (Clear); Bilirubin,Urine 4+ (Negative); Blood,Urine Negative (Negative); Color,Urine Dark Brown; Glucose,Urine (UA) Negative (Negative); Ketones,Urine Negative (Negative); Leukocyte Esterase,Urine Negative (Negative); Nitrite,Urine Negative (Negative); Protein,Urine Trace (Negative); Specific Gravity,Urine 1.012 (1.001-1.035)
[2024-09-15 18:19] LABS: Amphetamine Screen,Urine Not Detected (NotDetected); Barbiturate Screen,Urine Not Detected (NotDetected); Benzodiazepines Screen,Urine Not Detected (NotDetected); Cocaine Screen,Urine Not Detected (NotDetected); Methadone Screen, Urine Not Detected (NotDetected); Opiate Screen,Urine Not Detected (NotDetected); Oxycodone Screen, Urine Not Detected (NotDetected); Phencyclidine Screen,Urine Not Detected (NotDetected); Tricyclic Antidepressant,Urine Not Detected (NotDetected); Urn Cannabinoid Scrn Detected (NotDetected)
[2024-09-15] MEDS: LORazepam 1 MG TAB PO PRN (18:44)
[2024-09-15] MEDS: LORazepam 2 MG/ML INJ IV PRN (18:50)
[2024-09-15] MEDS ORDERED: NALOXONE 0.4 MG/ML 1 ML VIAL IV PRN (19:14)
[2024-09-15] MEDS: PANTOPRAZOLE 40 MG/10 ML VIAL IV SCH (19:35)
[2024-09-15] MEDS: ONDANSETRON 4 MG/2 ML VIAL IVP PRN (19:42)
[2024-09-15] MEDS: MAGNESIUM SULFATE-D5W PMX 1 GM in DEXTROSE/WATER 1 100ML.BAG IVPB SCH (19:52)
[2024-09-15] MEDS: NICOTINE 21MG/24HR PATCH TRANSDERM STA (19:54)
[2024-09-15] MEDS: DEXTROSE 5%-0.45% NACL 1,000 ML IV SCH (20:51)
[2024-09-15] MEDS: POTASSIUM CHLORIDE 10 MEQ in WATER FOR INJECTION 1 100ML.BAG IVPB SCH (20:54)
[2024-09-15] MEDS: SODIUM CHLORIDE 0.9% 1,000 ML IV ONE (20:58)
[2024-09-15] MEDS: MAGNESIUM OXIDE 400 MG TAB PO STA ×2 (22:03)
[2024-09-15] MEDS: POTASSIUM BICARBONATE/CIT AC 20 MEQ TABLET.EFF PO ONE ×2 (22:04→22:06)
[2024-09-15] MEDS: MAGNESIUM OXIDE 400 MG TAB PO SCH (22:09)
[2024-09-15] MEDS ORDERED: LORazepam 1 MG/0.5 ML VIAL IV PRN (23:16)
[2024-09-16 02:23] LABS: ALT 31 U/L (4-49); AST 186 U/L (17-59); African American GFR (CKD) >90 (>60 ml/min/1.73 sqM); Albumin 2.4 g/dL (3.5-5.0); Alkaline Phosphatase 416 U/L (38-126); Anion Gap 6 mmol/L; Blood Urea Nitrogen <2 mg/dL (9-20); Carbon Dioxide 26 mmol/L (22-30); Chloride 102 mmol/L (98-107); Glucose 131 mg/dL (74-99); Non-African American GFR(CKD) >90 (>60 ml/min/1.73 sqM); Potassium 2.8 mmol/L (3.5-5.1); Sodium 134 mmol/L (137-145); Total Protein 6.9 g/dL (6.3-8.2)
[2024-09-16 02:27] LABS: Total Bilirubin 15.6 mg/dL (0.2-1.3)
[2024-09-16 06:11] LABS: Glucose,Whole Blood 118 mg/dL (70-110)
[2024-09-16] MEDS ORDERED: Potassium Replacement Protocol 1 EACH MISC MISCELLANE PRN (06:53)
[2024-09-16 07:17] LABS: Anisocytosis Slight; Basophils % (A) 0 %; Eosinophils # (A) 0.1 k/uL (0-0.7); Eosinophils % (A) 1 %; HCT 31.4 % (39.0-53.0); Lymphocytes # (A) 1.2 k/uL (1.0-4.8); Lymphocytes % (A) 18 %; MCH 33.6 pg (25.0-35.0); MCHC 31.4 g/dL (31.0-37.0); MCV 107.1 fL (80.0-100.0); Macrocytosis Marked; Monocytes # (A) 0.5 k/uL (0-1.0); Monocytes % (A) 7 %; Neutrophils # (A) 4.6 k/uL (1.3-7.7); Neutrophils % (A) 71 %; RBC 2.94 m/uL (4.30-5.90); RDW 17.4 % (11.5-15.5); WBC 6.4 k/uL (3.8-10.6)
[2024-09-16 07:27] LABS: ALT 31 U/L (4-49); AST 188 U/L (17-59); African American GFR (CKD) >90 (>60 ml/min/1.73 sqM); Albumin 2.4 g/dL (3.5-5.0); Alkaline Phosphatase 432 U/L (38-126); Anion Gap 7 mmol/L; Blood Urea Nitrogen <2 mg/dL (9-20); Carbon Dioxide 25 mmol/L (22-30); Chloride 101 mmol/L (98-107); Glucose 122 mg/dL (74-99); Magnesium 1.5 mg/dL (1.6-2.3); Non-African American GFR(CKD) >90 (>60 ml/min/1.73 sqM); Phosphorus 1.4 mg/dL (2.5-4.5); Potassium 2.8 mmol/L (3.5-5.1); Sodium 133 mmol/L (137-145); Total Protein 6.9 g/dL (6.3-8.2)
[2024-09-16 07:30] LABS: Total Bilirubin 15.5 mg/dL (0.2-1.3)
[2024-09-16 07:31] LABS: HGB 9.9 gm/dL (13.0-17.5); Platelet Count 76 k/uL (150-450)
[2024-09-16] MEDS: MORPHINE SULFATE 4 MG/ML SYRINGE IV PRN (07:55)
[2024-09-16] MEDS: POTASSIUM CHLORIDE 20 MEQ in WATER FOR INJECTION 1 100ML.BAG IVPB SCH (07:57)
[2024-09-16 08:03] LABS: Large Platelets Present; RBC Morphology Normal
[2024-09-16] MEDS ORDERED: PANTOPRAZOLE 40 MG TABLET PO SCH (09:15)
[2024-09-16] MEDS: FUROSEMIDE 40 MG TAB PO SCH (11:17)
[2024-09-16] MEDS: FOLIC ACID 1 MG TAB PO SCH (11:17)
[2024-09-16] MEDS: SPIRONOLACTONE 25 MG TAB PO SCH (11:18)
[2024-09-16] MEDS: DAPAGLIFLOZIN PROPANEDIOL 10 MG TABLET PO SCH (11:26)
[2024-09-16 11:53] LABS: Glucose,Whole Blood 171 mg/dL (70-110)
[2024-09-16] MEDS: ONDANSETRON 4 MG/2 ML VIAL IVP PRN (12:15)
--- NOTE | 2024-09-16 13:04 | P.HPIM ---
History of Present Illness H&P Date: 09/16/24 History of present illness; patient is a 34-year-old gentleman past medical history significant for alcohol induced liver cirrhosis who presented to the ER because of nausea and vomiting. Patient has been seen in the past with similar complaints. Patient stated he has been drinking excessively for the last few weeks, administering around 1 pint per day. Patient has been complaining of nausea and vomiting. Denies abdominal pain. There is no complaint of fever or chills. Patient denies any orthopnea or PND. There is no chest pain or shortness of breath. Because of the symptoms, patient presented to the ER Initial lab work done in the ER showed WBC 9.5, hemoglobin 7.6, platelet count 105, sodium 137, potassium 2.6, BUN 2, creatinine 0.60, lactate 5.2 bilirubin 18.2 AST 247, ALT 39, ammonia 61, protein 9, albumin 3.4 UA negative for any infection Urine drug screen positive for marijuana EKG done in the ER showed heart rate of 115, no ST segment elevation or depression seen, no T-wave inversions seen. Patient admitted to internal medicine service REVIEW OF SYSTEMS: CONSTITUTIONAL: No fever, no malaise, no fatigue. HEENT: No recent visual problems or hearing problems. Denied any sore throat. CARDIOVASCULAR: No chest pain, orthopnea, PND, no palpitations, no syncope. PULMONARY: No shortness of breath, no cough, no hemoptysis. GASTROINTESTINAL: As mentioned above NEUROLOGICAL: No headaches, no weakness, no numbness. HEMATOLOGICAL: Denies any bleeding or petechiae. GENITOURINARY: Denies any burning micturition, frequency, or urgency. MUSCULOSKELETAL/RHEUMATOLOGICAL: Denies any joint pain, swelling, or any muscle pain. ENDOCRINE: Denies any polyuria or polydipsia. The rest of the 14-point review of systems is negative. PHYSICAL EXAMINATION: GENERAL: The patient is alert and oriented x3, ill looking HEENT: Pupils are round and equally reacting to light. EOMI. bilateral scleral icterus seen. No conjunctival pallor. Normocephalic, atraumatic. No pharyngeal erythema. No thyromegaly. CARDIOVASCULAR: S1 and S2 present. No murmurs, rubs, or gallops. PULMONARY: Chest is clear to auscultation, no wheezing or crackles. ABDOMEN: Soft, nontender, nondistended, normoactive bowel sounds. No palpable organomegaly. MUSCULOSKELETAL: No joint swelling or deformity. EXTREMITIES: No cyanosis, clubbing, or pedal edema. NEUROLOGICAL: Gross neurological examination did not reveal any focal deficits. SKIN: No rashes. Assessment and plan Nausea and vomiting Leukocytosis Anemia Thrombocytopenia Hypokalemia Lactic acidosis Alcohol abuse Impending alcohol detox History of alcoholic liver cirrhosis Monitor vital signs Monitor CBC Monitor CMP Continue telemetry monitoring Potassium replacement ordered [facility] protocol ordered Continue high-dose thiamine and folic acid Continue symptom triggered Ativan therapy Patient counseled in detail regarding alcohol cessation Avoid hepatotoxic agents Continue home med Labs and medication were reviewed.. Continue same treatment. Continue with symptomatic treatment. Resume home medication. Monitor labs and vitals. DVT and GI prophylaxis. Further recommendations as per clinical course of the patient Dictation was produced using [employer] dictation software. please excuse any grammatical, word or spelling errors. Past Medical History Past Medical History: Diabetes Mellitus, Hypertension, Liver Disease Additional Past Medical History / Comment(s): Nephrolithiasis, ETOH abuse with past withdrawal tremors, past alcoholic hepatitis/acute severe kidney injury/hyperphosphatemia/acute metabolic encephalopathy from renal failure. Hx. of diabetes, no longer on insulin.(30lb weight loss). Liver Cirrhosis/Ascites. low K level, high ammonia History of Any Multi-Drug Resistant Organisms: None Reported Past Surgical History: Cholecystectomy, Tonsillectomy Additional Past Surgical History / Comment(s): Paracentesis x2, Past Anesthesia/Blood Transfusion Reactions: No Reported Reaction Past Psychological History: No Psychological Hx Reported Additional Psychological History / Comment(s): Pt resides with his mother. He is independent. Smoking Status: Current every day smoker Past Alcohol Use History: Abuse, Daily, Heavy Additional Past Alcohol Use History / Comment(s): Pt started smoking as a teen and is a ppd smoker. He states he was drinking a fifth a day but has reduced alcohol consumption. 06/28/24 - pt states he quit 06/2024 Past Drug Use History: Marijuana Additional Drug Use History / Comment(s): 05/20/24-Pt states he used Cocaine 2 days ago-NO LONGER USING PER MOTHER, and smokes Marijuana daily. - Past Family History Father Family Medical History: Myocardial Infarction ([place]) Mother Family Medical History: Hypertension Additional Family Medical History / Comment(s): heart stent Medications and Allergies Home Medications Medication Instructions Recorded Confirmed Type Thiamine [Vitamin B-1] 100 mg PO DAILY #30 tab 09/30/23 09/15/24 Rx Folic Acid 1 mg PO DAILY 02/20/24 09/15/24 History Dapagliflozin Propanediol [Farxiga] 10 mg PO DAILY 03/08/24 09/15/24 History Ferrous Sulfate [Iron (65 MG 325 mg PO DAILY 05/11/24 09/15/24 History Elemental)] Pantoprazole [Protonix] 40 mg PO DAILY #30 tab 05/14/24 09/15/24 Rx Multivitamins, Thera [Multivitamin 1 tab PO DAILY 05/20/24 09/15/24 History (formulary)] Furosemide [Lasix] 40 mg PO DAILY 06/25/24 09/15/24 History Metoprolol Tartrate [Lopressor] 25 mg PO DAILY 06/25/24 09/15/24 History Spironolactone [Aldactone] 50 mg PO DAILY #30 tab 06/29/24 09/15/24 Rx Allergies Allergy/AdvReac Type Severity Reaction Status Date / Time No Known Allergies Allergy Verified 09/15/24 19:02 Physical Exam Vitals: Vital Signs Temp Pulse Pulse Resp BP BP Pulse Ox 09/16/24 08:00 99.4 F 127 H 20 113/63 98 09/16/24 04:00 98.2 F 111 H 16 99/57 96 09/15/24 23:06 98.3 F 117 H 14 102/56 95 09/15/24 22:31 111 H 16 100/58 95 09/15/24 22:08 114 H 18 116/68 97 09/15/24 21:18 113 H 18 91/53 97 09/15/24 19:35 122 H 18 120/63 95 09/15/24 18:58 125 H 19 117/71 97 09/15/24 17:25 117 H 22 122/75 98 09/15/24 16:52 126 H 20 139/73 98 09/15/24 16:36 98.1 F 146 H 19 149/84 98 Intake and Output 09/15/24 09/16/24 09/16/24 22:59 06:59 14:59 Other: Voiding Method Toilet Urinal # Voids 1 # Bowel Movements 1 Weight 70.307 kg 75.8 kg Results CBC & Chem 7: 09/16/24 06:03 09/16/24 06:03 Labs: Abnormal Lab Results - Last 24 Hours (Table) 09/15/24 09/15/24 09/15/24 Range/Units 17:13 17:13 17:13 WBC 11.5 H (3.8-10.6) k/uL RBC 3.49 L (4.30-5.90) m/uL Hgb 11.6 L (13.0-17.5) gm/dL Hct 36.1 L (39.0-53.0) % MCV 103.3 H (80.0-100.0) fL RDW 17.3 H (11.5-15.5) % Plt Count 105 L (150-450) k/uL Neutrophils # 8.0 H (1.3-7.7) k/uL Macrocytosis PT 29.2 H (10.0-12.5) sec INR 2.9 H (<1.2) APTT 40.8 H (22.0-30.0) sec Sodium (137-145) mmol/L Potassium 2.6 L* (3.5-5.1) mmol/L Chloride 92 L (98-107) mmol/L BUN 2 L (9-20) mg/dL Creatinine 0.60 L (0.66-1.25) mg/dL Glucose 137 H (74-99) mg/dL POC Glucose (mg/dL) (70-110) mg/dL Plasma Lactic Acid Raul (0.7-2.0) mmol/L Calcium (8.4-10.2) mg/dL Phosphorus 1.7 L (2.5-4.5) mg/dL Magnesium 1.3 L (1.6-2.3) mg/dL Total Bilirubin 18.2 H* (0.2-1.3) mg/dL AST 247 H (17-59) U/L Alkaline Phosphatase 565 H (38-126) U/L Ammonia (<30) umol/L Total Protein 9.0 H (6.3-8.2) g/dL Albumin 3.4 L (3.5-5.0) g/dL Urine Protein (Negative) Urine Bilirubin (Negative) U Marijuana (THC) Screen (NotDetected) Serum Alcohol 340 H* mg/dL 09/15/24 09/15/24 09/15/24 Range/Units 17:13 18:00 18:00 WBC (3.8-10.6) k/uL RBC (4.30-5.90) m/uL Hgb (13.0-17.5) gm/dL Hct (39.0-53.0) % MCV (80.0-100.0) fL RDW (11.5-15.5) % Plt Count (150-450) k/uL Neutrophils # (1.3-7.7) k/uL Macrocytosis PT (10.0-12.5) sec INR (<1.2) APTT (22.0-30.0) sec Sodium (137-145) mmol/L Potassium (3.5-5.1) mmol/L Chloride (98-107) mmol/L BUN (9-20) mg/dL Creatinine (0.66-1.25) mg/dL Glucose (74-99) mg/dL POC Glucose (mg/dL) (70-110) mg/dL Plasma Lactic Acid Raul 5.2 H* (0.7-2.0) mmol/L Calcium (8.4-10.2) mg/dL Phosphorus (2.5-4.5) mg/dL Magnesium (1.6-2.3) mg/dL Total Bilirubin (0.2-1.3) mg/dL AST (17-59) U/L Alkaline Phosphatase (38-126) U/L Ammonia 61 H (<30) umol/L Total Protein (6.3-8.2) g/dL Albumin (3.5-5.0) g/dL Urine Protein Trace H (Negative) Urine Bilirubin 4+ H (Negative) U Marijuana (THC) Screen Detected H (NotDetected) Serum Alcohol mg/dL 09/15/24 09/15/24 09/16/24 Range/Units 20:08 23:24 01:55 WBC (3.8-10.6) k/uL RBC (4.30-5.90) m/uL Hgb (13.0-17.5) gm/dL Hct (39.0-53.0) % MCV (80.0-100.0) fL RDW (11.5-15.5) % Plt Count (150-450) k/uL Neutrophils # (1.3-7.7) k/uL Macrocytosis PT (10.0-12.5) sec INR (<1.2) APTT (22.0-30.0) sec Sodium 134 L (137-145) mmol/L Potassium 2.8 L (3.5-5.1) mmol/L Chloride (98-107) mmol/L BUN <2 L (9-20) mg/dL Creatinine 0.51 L (0.66-1.25) mg/dL Glucose 131 H (74-99) mg/dL POC Glucose (mg/dL) (70-110) mg/dL Plasma Lactic Acid Raul 3.7 H* 2.7 H* (0.7-2.0) mmol/L Calcium 7.0 L (8.4-10.2) mg/dL Phosphorus (2.5-4.5) mg/dL Magnesium (1.6-2.3) mg/dL Total Bilirubin 15.6 H* (0.2-1.3) mg/dL AST 186 H (17-59) U/L Alkaline Phosphatase 416 H (38-126) U/L Ammonia (<30) umol/L Total Protein (6.3-8.2) g/dL Albumin 2.4 L (3.5-5.0) g/dL Urine Protein (Negative) Urine Bilirubin (Negative) U Marijuana (THC) Screen (NotDetected) Serum Alcohol mg/dL 09/16/24 09/16/24 09/16/24 Range/Units 01:55 06:03 06:03 WBC (3.8-10.6) k/uL RBC 2.94 L (4.30-5.90) m/uL Hgb 9.9 L D (13.0-17.5) gm/dL Hct 31.4 L (39.0-53.0) % MCV 107.1 H (80.0-100.0) fL RDW 17.4 H (11.5-15.5) % Plt Count 76 L (150-450) k/uL Neutrophils # (1.3-7.7) k/uL Macrocytosis Marked A PT (10.0-12.5) sec INR (<1.2) APTT (22.0-30.0) sec Sodium 133 L (137-145) mmol/L Potassium 2.8 L (3.5-5.1) mmol/L Chloride (98-107) mmol/L BUN <2 L (9-20) mg/dL Creatinine 0.51 L (0.66-1.25) mg/dL Glucose 122 H (74-99) mg/dL POC Glucose (mg/dL) (70-110) mg/dL Plasma Lactic Acid Raul 2.3 H* (0.7-2.0) mmol/L Calcium 7.0 L (8.4-10.2) mg/dL Phosphorus 1.4 L (2.5-4.5) mg/dL Magnesium 1.5 L (1.6-2.3) mg/dL Total Bilirubin 15.5 H* (0.2-1.3) mg/dL AST 188 H (17-59) U/L Alkaline Phosphatase 432 H (38-126) U/L Ammonia (<30) umol/L Total Protein (6.3-8.2) g/dL Albumin 2.4 L (3.5-5.0) g/dL Urine Protein (Negative) Urine Bilirubin (Negative) U Marijuana (THC) Screen (NotDetected) Serum Alcohol mg/dL 09/16/24 09/16/24 Range/Units 06:03 06:10 WBC (3.8-10.6) k/uL RBC (4.30-5.90) m/uL Hgb (13.0-17.5) gm/dL Hct (39.0-53.0) % MCV (80.0-100.0) fL RDW (11.5-15.5) % Plt Count (150-450) k/uL Neutrophils # (1.3-7.7) k/uL Macrocytosis PT (10.0-12.5) sec INR (<1.2) APTT (22.0-30.0) sec Sodium (137-145) mmol/L Potassium (3.5-5.1) mmol/L Chloride (98-107) mmol/L BUN (9-20) mg/dL Creatinine (0.66-1.25) mg/dL Glucose (74-99) mg/dL POC Glucose (mg/dL) 118 H (70-110) mg/dL Plasma Lactic Acid Raul 2.5 H* (0.7-2.0) mmol/L Calcium (8.4-10.2) mg/dL Phosphorus (2.5-4.5) mg/dL Magnesium (1.6-2.3) mg/dL Total Bilirubin (0.2-1.3) mg/dL AST (17-59) U/L Alkaline Phosphatase (38-126) U/L Ammonia (<30) umol/L Total Protein (6.3-8.2) g/dL Albumin (3.5-5.0) g/dL Urine Protein (Negative) Urine Bilirubin (Negative) U Marijuana (THC) Screen (NotDetected) Serum Alcohol mg/dL Thrombosis Risk Factor Assmnt - Choose All That Apply Any of the Below Risk Factors Present?: No Other Risk Factors: No Thrombosis Risk Factor Assessment Level: Very Low Risk
[2024-09-16] MEDS: THIAMINE 100 MG TAB PO SCH (15:42)
[2024-09-16 16:18] LABS: Glucose,Whole Blood 284 mg/dL (70-110)
[2024-09-16] MEDS: NICOTINE 21MG/24HR PATCH TRANSDERM SCH (16:31)
[2024-09-16] MEDS: SODIUM CHLORIDE 0.9% 500 ML 500 ML IV ONE (17:51)
[2024-09-16 20:20] LABS: Glucose,Whole Blood 155 mg/dL (70-110)
[2024-09-16] MEDS: POTASSIUM CHLORIDE ER 20 MEQ TAB.ER PO SCH (22:18)
[2024-09-16] MEDS: LORazepam 1 MG/0.5 ML VIAL IV PRN (22:26)
[2024-09-17 02:52] LABS: Anisocytosis Slight; Basophils % (A) 1 %; Eosinophils # (A) 0.1 k/uL (0-0.7); Eosinophils % (A) 2 %; HGB 10.7 gm/dL (13.0-17.5); Hypochromasia Slight; Lymphocytes % (A) 14 %; MCH 34.3 pg (25.0-35.0); MCHC 31.6 g/dL (31.0-37.0); MCV 108.7 fL (80.0-100.0); Monocytes # (A) 0.6 k/uL (0-1.0); Monocytes % (A) 8 %; Neutrophils # (A) 5.1 k/uL (1.3-7.7); Neutrophils % (A) 72 %; RBC 3.13 m/uL (4.30-5.90); RDW 17.5 % (11.5-15.5); WBC 7.1 k/uL (3.8-10.6)
[2024-09-17 03:06] LABS: ALT 30 U/L (4-49); African American GFR (CKD) >90 (>60 ml/min/1.73 sqM); Albumin 2.7 g/dL (3.5-5.0); Anion Gap 7 mmol/L; Blood Urea Nitrogen <2 mg/dL (9-20); Calcium 7.2 mg/dL (8.4-10.2); Carbon Dioxide 25 mmol/L (22-30); Chloride 97 mmol/L (98-107); Glucose 140 mg/dL (74-99); Non-African American GFR(CKD) >90 (>60 ml/min/1.73 sqM); Sodium 129 mmol/L (137-145); Total Protein 7.7 g/dL (6.3-8.2)
[2024-09-17 03:16] LABS: Macrocytosis Marked; Platelet Count 68 k/uL (150-450)
[2024-09-17 03:29] LABS: AST 180 U/L (17-59); Potassium 3.2 mmol/L (3.5-5.1)
[2024-09-17 03:30] LABS: Alkaline Phosphatase 449 U/L (38-126); Total Bilirubin 19.6 mg/dL (0.2-1.3)
[2024-09-17 05:54] LABS: Glucose,Whole Blood 146 mg/dL (70-110)
[2024-09-17] MEDS: POTASSIUM CHLORIDE ER 20 MEQ TAB.ER PO SCH (06:12)
[2024-09-17] MEDS: MULTIVITAMINS, THERA 1 EACH TAB PO SCH (08:00)
[2024-09-17] MEDS: PANTOPRAZOLE 40 MG TABLET PO SCH (08:00)
[2024-09-17] MEDS: FERROUS SULFATE 325 MG TAB PO SCH (08:01)
[2024-09-17] MEDS: METOPROLOL TARTRATE 25 MG TAB PO SCH (08:01)
[2024-09-17 11:26] LABS: Glucose,Whole Blood 132 mg/dL (70-110)
[2024-09-17 11:40] LABS: Prothrombin Time 39.6 sec (10.0-12.5)
--- NOTE | 2024-09-17 12:55 | P.PN ---
Subjective Progress Note Date: 09/17/24 patient is a 34-year-old gentleman past medical history significant for alcohol induced liver cirrhosis who presented to the ER because of nausea and vomiting. Patient has been seen in the past with similar complaints. Patient stated he has been drinking excessively for the last few weeks, administering around 1 pint per day. Patient has been complaining of nausea and vomiting. Denies abdominal pain. There is no complaint of fever or chills. Patient denies any orthopnea or PND. There is no chest pain or shortness of breath. Because of the symptoms, patient presented to the ER Initial lab work done in the ER showed WBC 9.5, hemoglobin 7.6, platelet count 105, sodium 137, potassium 2.6, BUN 2, creatinine 0.60, lactate 5.2 bilirubin 18.2 AST 247, ALT 39, ammonia 61, protein 9, albumin 3.4 UA negative for any infection Urine drug screen positive for marijuana EKG done in the ER showed heart rate of 115, no ST segment elevation or depression seen, no T-wave inversions seen. Patient admitted to internal medicine service 09/17. Patient seen and examined. Labs reviewed this morning showed sodium 129, potassium 3.2, BUN 2, creatinine 0.50 bilirubin 19.6, AST 180, ALT 30. Still complaining of nausea and vomiting. Denies abdominal pain. REVIEW OF SYSTEMS: CONSTITUTIONAL: No fever, no malaise,. CARDIOVASCULAR: No chest pain, no palpitations, no syncope. PULMONARY: No shortness of breath, no cough, GASTROINTESTINAL: As mentioned above NEUROLOGICAL: No headaches, no weakness, PHYSICAL EXAMINATION: GENERAL: The patient is alert and oriented x3, ill looking HEENT: Pupils are round and equally reacting to light. EOMI. scleral icterus seen . CARDIOVASCULAR: S1 and S2 present. No murmurs, rubs, or gallops. PULMONARY: Chest is clear to auscultation, no wheezing or crackles. ABDOMEN: Soft,distended, normoactive bowel sounds. No palpable organomegaly. MUSCULOSKELETAL: No joint swelling or deformity. EXTREMITIES: No cyanosis, clubbing, or pedal edema. NEUROLOGICAL: Gross neurological examination did not reveal any focal deficits. SKIN: No rashes. Assessment and plan Nausea and vomiting Leukocytosis Anemia Thrombocytopenia Hypokalemia Lactic acidosis Alcohol abuse Impending alcohol detox History of alcoholic liver cirrhosis Monitor vital signs Monitor CBC Monitor CMP Continue telemetry monitoring Potassium replacement ordered [facility] protocol ordered Ordered ultrasound abdominal Continue high-dose thiamine and folic acid Continue symptom triggered Ativan therapy Patient counseled in detail regarding alcohol cessation Avoid hepatotoxic agents Continue home med GI consult Labs and medication were reviewed.. Continue same treatment. Continue with symptomatic treatment. Resume home medication. Monitor labs and vitals. DVT and GI prophylaxis. Further recommendations as per clinical course of the patient Dictation was produced using [employer] dictation software. please excuse any grammatical, word or spelling errors. Objective - Vital Signs Vital signs: Vital Signs Temp 98.2 F 09/17/24 08:14 Pulse 115 H 09/17/24 08:14 Resp 18 09/17/24 08:14 BP 124/79 09/17/24 08:14 Pulse Ox 96 09/17/24 08:14 FiO2 Intake & Output 09/16/24 09/17/24 09/17/24 18:59 06:59 18:59 Intake Total 10 Balance 10 Weight 77.7 kg Intake: IV 10 Invasive Line 2 10 Oral 0 Other: Voiding Method Toilet Toilet Toilet Urinal Urinal Urinal # Voids 1 3 - Labs CBC & Chem 7: 09/17/24 02:32 09/17/24 02:32 Labs: Abnormal Lab Results - Last 24 Hours (Table) 09/16/24 09/16/24 09/16/24 Range/Units 09:45 11:51 12:59 RBC (4.30-5.90) m/uL Hgb (13.0-17.5) gm/dL Hct (39.0-53.0) % MCV (80.0-100.0) fL RDW (11.5-15.5) % Plt Count (150-450) k/uL Macrocytosis Sodium (137-145) mmol/L Potassium (3.5-5.1) mmol/L Chloride (98-107) mmol/L BUN (9-20) mg/dL Creatinine (0.66-1.25) mg/dL Glucose (74-99) mg/dL POC Glucose (mg/dL) 171 H (70-110) mg/dL Plasma Lactic Acid Raul 3.3 H* 3.3 H* (0.7-2.0) mmol/L Calcium (8.4-10.2) mg/dL Total Bilirubin (0.2-1.3) mg/dL AST (17-59) U/L Alkaline Phosphatase (38-126) U/L Albumin (3.5-5.0) g/dL 09/16/24 09/16/24 09/16/24 Range/Units 15:51 16:16 20:18 RBC (4.30-5.90) m/uL Hgb (13.0-17.5) gm/dL Hct (39.0-53.0) % MCV (80.0-100.0) fL RDW (11.5-15.5) % Plt Count (150-450) k/uL Macrocytosis Sodium (137-145) mmol/L Potassium (3.5-5.1) mmol/L Chloride (98-107) mmol/L BUN (9-20) mg/dL Creatinine (0.66-1.25) mg/dL Glucose (74-99) mg/dL POC Glucose (mg/dL) 284 H 155 H (70-110) mg/dL Plasma Lactic Acid Raul 4.8 H* (0.7-2.0) mmol/L Calcium (8.4-10.2) mg/dL Total Bilirubin (0.2-1.3) mg/dL AST (17-59) U/L Alkaline Phosphatase (38-126) U/L Albumin (3.5-5.0) g/dL 09/16/24 09/17/24 09/17/24 Range/Units 20:43 02:32 02:32 RBC 3.13 L (4.30-5.90) m/uL Hgb 10.7 L (13.0-17.5) gm/dL Hct 34.0 L (39.0-53.0) % MCV 108.7 H (80.0-100.0) fL RDW 17.5 H (11.5-15.5) % Plt Count 68 L (150-450) k/uL Macrocytosis Marked A Sodium 129 L (137-145) mmol/L Potassium 2.7 L* 3.2 L (3.5-5.1) mmol/L Chloride 97 L (98-107) mmol/L BUN <2 L (9-20) mg/dL Creatinine 0.50 L (0.66-1.25) mg/dL Glucose 140 H (74-99) mg/dL POC Glucose (mg/dL) (70-110) mg/dL Plasma Lactic Acid Raul (0.7-2.0) mmol/L Calcium 7.2 L (8.4-10.2) mg/dL Total Bilirubin 19.6 H* (0.2-1.3) mg/dL AST 180 H (17-59) U/L Alkaline Phosphatase 449 H (38-126) U/L Albumin 2.7 L (3.5-5.0) g/dL 09/17/24 Range/Units 05:53 RBC (4.30-5.90) m/uL Hgb (13.0-17.5) gm/dL Hct (39.0-53.0) % MCV (80.0-100.0) fL RDW (11.5-15.5) % Plt Count (150-450) k/uL Macrocytosis Sodium (137-145) mmol/L Potassium (3.5-5.1) mmol/L Chloride (98-107) mmol/L BUN (9-20) mg/dL Creatinine (0.66-1.25) mg/dL Glucose (74-99) mg/dL POC Glucose (mg/dL) 146 H (70-110) mg/dL Plasma Lactic Acid Raul (0.7-2.0) mmol/L Calcium (8.4-10.2) mg/dL Total Bilirubin (0.2-1.3) mg/dL AST (17-59) U/L Alkaline Phosphatase (38-126) U/L Albumin (3.5-5.0) g/dL
--- NOTE | 2024-09-17 15:10 | US ---
EXAMINATION TYPE: US abdomen limited DATE OF EXAM: 09/17/2024 COMPARISON: CT May 23, 2024 CLINICAL INDICATION: Male, 34 years old with history of Elevated LFTs; Elevated LFTs TECHNIQUE: Grayscale and color Doppler imaging of the right upper quadrant. FINDINGS: EXAM MEASUREMENTS: Liver Length: 25.9 cm Gallbladder Wall: *Surgically absent CBD: 0.85 cm, color Doppler imaging was utilized to isolate the common bile duct for measurement. Right Kidney: 12.1 x 6.1 x 5.2 cm [employer] NOTES: Exam is limited due to gas. Pancreas: *Obscured Liver: Enlarged, heterogeneous with increased echogenicity and attenuation. Gallbladder: *Surgically absent Evidence for sonographic Johnston's sign: No CBD: wnl Right Kidney: No hydronephrosis or masses seen Ascites seen in epigastric area and within all four quadrants of the abdomen. Hepatomegaly is now present. There is persistent heterogeneous hyperechoic appearance of liver. This limits evaluation for focal masses. No biliary dilatation. Small amount of ascites on current study. IMPRESSION: Suboptimal study. Hepatomegaly is not present. Persistent underlying hepatocellular disease. Small am ount of intraperitoneal ascites on current study. [facility], , 09/17/2024 3:08 PM
--- NOTE | 2024-09-17 15:12 | P.CONS ---
History of Present Illness - Reason for Consult Consult date: 09/17/24 Alcohol hepatitis, transaminitis Requesting physician: Yuli Willingham - Chief Complaint Nausea vomiting and diarrhea - History of Present Illness This is a 34-year-old male with a history of heavy alcohol abuse with liver cirrhosis who had presented to the emergency department with reported nausea vomiting and diarrhea. Patient has had multiple emergency room visits for intoxication and withdrawal symptoms. History of liver cirrhosis with previous paracentesis. Last paracentesis was May 14, [id number] with about 4.1 L removed. His last couple ultrasound in June and July showed no significant fluid and paracentesis were canceled. He is maintained on spironolactone 50 mg daily and Lasix 40 mg daily. He denies any nausea or vomiting or abdominal pain at this time. Patient is significantly jaundiced. He was noted to have elevated LFTs and significant elevation in total bilirubin. Gastroenterology was consulted for acute alcohol hepatitis. Patient states he is continues to drink about a pint a day. Patient reports that he broke his back in May and he has been in pain and has been drinking more. States he plans to go to rehab at some point. States he started noticing his skin getting yellow 2 to 3 days ago. Today's labs WBC 7.1 hemoglobin 10.7 hematocrit 34 platelet count 68,000 sodium 129 potassium 3.2 BUN less than 2 creatinine 0.5 total bilirubin 19.6 AST 180 ALT 30 alkaline phosphatase 449 Review of Systems REVIEW OF SYSTEMS: CARDIOPULMONARY: No chest pain or shortness of breath. Gastrointestinal: Abdominal pain. Nausea and vomiting. No hematemesis, coffee- ground emesis. Diarrhea. No rectal bleeding, or melena. GENITOURINARY: No dysuria or hematuria. Dark urine. MUSCULOSKELETAL: Reports normal range of motion. Back pain. SKIN: No rashes. Jaundice. ENDOCRINE: No chills, fevers. No excessive weight gain or loss. No polydipsia or polyuria. PSYCHIATRIC: Alcohol abuse. NEUROLOGY: Weak, fatigued. Denies dizziness, headache. ENT: Vision unremarkable. CONSTITUTIONAL: No recent weight loss. No fever, chills, night sweats. Past Medical History Past Medical History: Diabetes Mellitus, Hypertension, Liver Disease Additional Past Medical History / Comment(s): Nephrolithiasis, ETOH abuse with past withdrawal tremors, past alcoholic hepatitis/acute severe kidney injury/hyperphosphatemia/acute metabolic encephalopathy from renal failure. Hx. of diabetes, no longer on insulin.(30lb weight loss). Liver Cirrhosis/Ascites. low K level, high ammonia History of Any Multi-Drug Resistant Organisms: None Reported Past Surgical History: Cholecystectomy, Tonsillectomy Additional Past Surgical History / Comment(s): Paracentesis x2, Past Anesthesia/Blood Transfusion Reactions: No Reported Reaction Past Psychological History: No Psychological Hx Reported Additional Psychological History / Comment(s): Pt resides with his mother. He is independent. Smoking Status: Current every day smoker Past Alcohol Use History: Abuse, Daily, Heavy Additional Past Alcohol Use History / Comment(s): Pt started smoking as a teen and is a ppd smoker. He states he was drinking a fifth a day but has reduced a lcohol consumption. 06/28/24 - pt states he quit 06/2024 Past Drug Use History: Marijuana Additional Drug Use History / Comment(s): 05/20/24-Pt states he used Cocaine 2 days ago-NO LONGER USING PER MOTHER, and smokes Marijuana daily. - Past Family History Father Family Medical History: Myocardial Infarction ([place]) Mother Family Medical History: Hypertension Additional Family Medical History / Comment(s): heart stent Medications and Allergies Home Medications Medication Instructions Recorded Confirmed Type Thiamine [Vitamin B-1] 100 mg PO DAILY #30 tab 09/30/23 09/15/24 Rx Folic Acid 1 mg PO DAILY 02/20/24 09/15/24 History Dapagliflozin Propanediol [Farxiga] 10 mg PO DAILY 03/08/24 09/15/24 History Ferrous Sulfate [Iron (65 MG 325 mg PO DAILY 05/11/24 09/15/24 History Elemental)] Pantoprazole [Protonix] 40 mg PO DAILY #30 tab 05/14/24 09/15/24 Rx Multivitamins, Thera [Multivitamin 1 tab PO DAILY 05/20/24 09/15/24 History (formulary)] Furosemide [Lasix] 40 mg PO DAILY 06/25/24 09/15/24 History Metoprolol Tartrate [Lopressor] 25 mg PO DAILY 06/25/24 09/15/24 History Spironolactone [Aldactone] 50 mg PO DAILY #30 tab 06/29/24 09/15/24 Rx Allergies Allergy/AdvReac Type Severity Reaction Status Date / Time No Known Allergies Allergy Verified 09/15/24 19:02 Physical Exam Vitals: Vital Signs Temp Pulse Resp BP Pulse Ox 09/17/24 08:14 98.2 F 115 H 18 124/79 96 09/17/24 08:00 115 H 18 09/17/24 04:00 98.2 F 108 H 20 114/65 94 L 09/17/24 00:00 98.5 F 110 H 22 120/70 94 L 09/16/24 20:00 97.9 F 115 H 20 110/63 97 09/16/24 16:00 98.1 F 115 H 20 105/65 96 09/16/24 12:00 98.4 F 109 H 20 110/64 96 Intake and Output 09/16/24 09/17/24 09/17/24 22:59 06:59 14:59 Intake Total 10 Balance 10 Intake: IV 10 Invasive Line 2 10 Oral 0 Other: Voiding Method Toilet Toilet Toilet Urinal Urinal Urinal # Voids 3 Weight 77.7 kg General appearance: The patient is alert, oriented, appears in no acute distress. HET: Head is normocephalic and atraumatic. Conjunctiva pink. Sclera deeply icteric. Neck: Supple without lymphadenopathy. Trachea midline. Heart: Regular. Lungs: Equal expansion, normal respiratory effort. Abdomen: Soft, hepatomegaly, ascites, umbilical hernia, nondistended. Skin: No rashes. Deeply jaundiced. Extremities: Normal skin color and turgor. No pedal edema. Neurological: No focal deficits. Drowsy but easily arousable. Alert and oriented x3. Results CBC & Chem 7: 09/17/24 02:32 09/17/24 02:32 Labs: Abnormal Lab Results - Last 24 Hours (Table) 09/16/24 09/16/24 09/16/24 Range/Units 09:45 11:51 12:59 RBC (4.30-5.90) m/uL Hgb (13.0-17.5) gm/dL Hct (39.0-53.0) % MCV (80.0-100.0) fL RDW (11.5-15.5) % Plt Count (150-450) k/uL Macrocytosis Sodium (137-145) mmol/L Potassium (3.5-5.1) mmol/L Chloride (98-107) mmol/L BUN (9-20) mg/dL Creatinine (0.66-1.25) mg/dL Glucose (74-99) mg/dL POC Glucose (mg/dL) 171 H (70-110) mg/dL Plasma Lactic Acid Raul 3.3 H* 3.3 H* (0.7-2.0) mmol/L Calcium (8.4-10.2) mg/dL Total Bilirubin (0.2-1.3) mg/dL AST (17-59) U/L Alkaline Phosphatase (38-126) U/L Albumin (3.5-5.0) g/dL 09/16/24 09/16/24 09/16/24 Range/Units 15:51 16:16 20:18 RBC (4.30-5.90) m/uL Hgb (13.0-17.5) gm/dL Hct (39.0-53.0) % MCV (80.0-100.0) fL RDW (11.5-15.5) % Plt Count (150-450) k/uL Macrocytosis Sodium (137-145) mmol/L Potassium (3.5-5.1) mmol/L Chloride (98-107) mmol/L BUN (9-20) mg/dL Creatinine (0.66-1.25) mg/dL Glucose (74-99) mg/dL POC Glucose (mg/dL) 284 H 155 H (70-110) mg/dL Plasma Lactic Acid Raul 4.8 H* (0.7-2.0) mmol/L Calcium (8.4-10.2) mg/dL Total Bilirubin (0.2-1.3) mg/dL AST (17-59) U/L Alkaline Phosphatase (38-126) U/L Albumin (3.5-5.0) g/dL 09/16/24 09/17/24 09/17/24 Range/Units 20:43 02:32 02:32 RBC 3.13 L (4.30-5.90) m/uL Hgb 10.7 L (13.0-17.5) gm/dL Hct 34.0 L (39.0-53.0) % MCV 108.7 H (80.0-100.0) fL RDW 17.5 H (11.5-15.5) % Plt Count 68 L (150-450) k/uL Macrocytosis Marked A Sodium 129 L (137-145) mmol/L Potassium 2.7 L* 3.2 L (3.5-5.1) mmol/L Chloride 97 L (98-107) mmol/L BUN <2 L (9-20) mg/dL Creatinine 0.50 L (0.66-1.25) mg/dL Glucose 140 H (74-99) mg/dL POC Glucose (mg/dL) (70-110) mg/dL Plasma Lactic Acid Raul (0.7-2.0) mmol/L Calcium 7.2 L (8.4-10.2) mg/dL Total Bilirubin 19.6 H* (0.2-1.3) mg/dL AST 180 H (17-59) U/L Alkaline Phosphatase 449 H (38-126) U/L Albumin 2.7 L (3.5-5.0) g/dL 09/17/24 Range/Units 05:53 RBC (4.30-5.90) m/uL Hgb (13.0-17.5) gm/dL Hct (39.0-53.0) % MCV (80.0-100.0) fL RDW (11.5-15.5) % Plt Count (150-450) k/uL Macrocytosis Sodium (137-145) mmol/L Potassium (3.5-5.1) mmol/L Chloride (98-107) mmol/L BUN (9-20) mg/dL Creatinine (0.66-1.25) mg/dL Glucose (74-99) mg/dL POC Glucose (mg/dL) 146 H (70-110) mg/dL Plasma Lactic Acid Raul (0.7-2.0) mmol/L Calcium (8.4-10.2) mg/dL Total Bilirubin (0.2-1.3) mg/dL AST (17-59) U/L Alkaline Phosphatase (38-126) U/L Albumin (3.5-5.0) g/dL Assessment and Plan (1) Liver failure Narrative/Plan: 34-year-old male with longstanding history of alcohol abuse who continues to drink and was 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 Patient continues to drink a pint of alcohol a day. Has liver cirrhosis with ascites. Last paracentesis in May 2024. He maintains on spironolactone and Lasix. Patient came in with nausea and vomiting he was significantly jaundice. Total bilirubin at 19.6 AST 180 ALT 30 alkaline phosphatase 449, INR initially 2.9 with a repeat today of 4.0. Ammonia level ordered which was elevated at 143. Will start patient on lactulose, give vitamin K for coagulopathy secondary to underlying liver disease. MELD score 35, poor prognosis. This was discussed with patient. Discussed importance of alcohol abstinence. We will continue to follow along. Current Visit: Yes Status: Acute Code(s): K72.90 - HEPATIC FAILURE, UNSPECIFIED WITHOUT COMA SNOMED Code(s): 45307564 (2) Acute alcoholic hepatitis Current Visit: Yes Status: Acute Code(s): K70.10 - ALCOHOLIC HEPATITIS WITHOUT ASCITES SNOMED Code(s): 0396536 (3) Umbilical hernia Current Visit: Yes Status: Acute Code(s): K42.9 - UMBILICAL HERNIA WITHOUT OBSTRUCTION OR GANGRENE SNOMED Code(s): 654147035 (4) Ascites Current Visit: Yes Status: Acute Code(s): R18.8 - OTHER ASCITES SNOMED Code(s): 712520186 (5) Alcohol abuse Current Visit: No Status: Acute Code(s): F10.10 - ALCOHOL ABUSE, UNCOMPLICATED SNOMED Code(s): 16242670 (6) Alcoholic intoxication Current Visit: No Status: Acute Code(s): F10.929 - ALCOHOL USE, UNSPECIFIED WITH INTOXICATION, UNSPECIFIED SNOMED Code(s): 03842421 (7) Hyperammonemia Current Visit: No Status: Acute Code(s): E72.20 - DISORDER OF UREA CYCLE METABOLISM, UNSPECIFIED SNOMED Code(s): 8475763 (8) Hypokalemia Current Visit: Yes Status: Acute Code(s): E87.6 - HYPOKALEMIA SNOMED Code(s): 44982235 (9) Hyponatremia Current Visit: No Status: Acute Code(s): E87.1 - HYPO-OSMOLALITY AND HYPONATREMIA SNOMED Code(s): 89224023 (10) Coagulopathy Narrative/Plan: Secondary to underlying liver disease Current Visit: Yes Status: Acute Code(s): D68.9 - COAGULATION DEFECT, UNSPECIFIED SNOMED Code(s): 18456362 Plan: 1. Continue symptomatic and supportive care 2. Stat INR and ammonia levels 3. Daily CBC, CMP, INR, ammonia 4. Continue Lasix and Aldactone as ordered for now 5. Consider possible consultation to nephrology secondary to hyponatremia and hypokalemia in setting of liver failure and 6. Patient may have low-sodium diet 7. Will give vitamin K 10 mg p.o. today, likely will need to repeat daily for next 2 to 3 days based on INR 8. Avoid hepatotoxic medications 9. Discussed with patient importance of alcohol abstinence. MELD score 35, patient with poor prognosis especially in setting of continued alcohol consumption. Thank you for this consultation, we will continue to follow closely. Dr. Brenda Ross I agree with the dictator's note, documented as a scribe by Omayra Duffy.
[2024-09-17] MEDS: LACTULOSE 20 GM/30 ML CUP PO SCH (16:10)
[2024-09-17 16:14] LABS: Glucose,Whole Blood 92 mg/dL (70-110)
[2024-09-17] MEDS: PHYTONADIONE ORAL 5 MG/5 ML ORAL.SYRG PO STA (18:07)
[2024-09-17 20:12] LABS: Glucose,Whole Blood 117 mg/dL (70-110)
[2024-09-17] MEDS: LACTULOSE 20 GM/30 ML CUP PO ONE (21:01)
[2024-09-18 06:01] LABS: Glucose,Whole Blood 104 mg/dL (70-110)
[2024-09-18 07:13] LABS: HCT 30.1 % (39.6-50.0); HGB 10.7 g/dL (13.0-17.0); MCH 34.9 pg (27.0-32.0); MCHC 35.5 g/dL (32.0-37.0); Mean Platelet Volume 10.6 fL (9.5-12.2); RBC 3.07 10*6/uL (4.40-5.60); RDW 20.9 % (11.5-14.5); WBC 8.28 10*3/uL (4.50-10.00)
[2024-09-18 07:29] LABS: ALT 25 U/L (4-49); AST 109 U/L (17-59); African American GFR (CKD) >90 (>60 ml/min/1.73 sqM); Albumin 2.5 g/dL (3.5-5.0); Alkaline Phosphatase 425 U/L (38-126); Anion Gap 7 mmol/L; Blood Urea Nitrogen <2 mg/dL (9-20); Calcium 7.6 mg/dL (8.4-10.2); Carbon Dioxide 24 mmol/L (22-30); Chloride 99 mmol/L (98-107); Glucose 120 mg/dL (74-99); Non-African American GFR(CKD) >90 (>60 ml/min/1.73 sqM); Potassium 3.1 mmol/L (3.5-5.1); Sodium 130 mmol/L (137-145)
[2024-09-18 07:31] LABS: Platelet Count 97 10*3/uL (140-440)
[2024-09-18 07:42] LABS: INR 4.8 (<1.2)
[2024-09-18 07:59] LABS: Total Bilirubin 25.2 mg/dL (0.2-1.3)
[2024-09-18 08:07] LABS: Total Protein 7.4 g/dL (6.3-8.2)
[2024-09-18] MEDS: POTASSIUM CHLORIDE ER 20 MEQ TAB.ER PO SCH (09:02)
[2024-09-18] MEDS: PHYTONADIONE ORAL 5 MG/5 ML ORAL.SYRG PO STA (10:11)
[2024-09-18 11:53] LABS: Glucose,Whole Blood 107 mg/dL (70-110)
[2024-09-18] MEDS: MAGNESIUM SULFATE-D5W PMX 1 GM in DEXTROSE/WATER 1 100ML.BAG IVPB SCH (11:57)
--- NOTE | 2024-09-18 12:28 | P.PN ---
Subjective patient is a 34-year-old gentleman past medical history significant for alcohol induced liver cirrhosis who presented to the ER because of nausea and vomiting. Patient has been seen in the past with similar complaints. Patient stated he has been drinking excessively for the last few weeks, administering around 1 pint per day. Patient has been complaining of nausea and vomiting. Denies abdominal pain. There is no complaint of fever or chills. Patient denies any orthopnea or PND. There is no chest pain or shortness of breath. Because of the symptoms, patient presented to the ER Initial lab work done in the ER showed WBC 9.5, hemoglobin 7.6, platelet count 105, sodium 137, potassium 2.6, BUN 2, creatinine 0.60, lactate 5.2 bilirubin 18.2 AST 247, ALT 39, ammonia 61, protein 9, albumin 3.4 UA negative for any infection Urine drug screen positive for marijuana EKG done in the ER showed heart rate of 115, no ST segment elevation or depression seen, no T-wave inversions seen. Patient admitted to internal medicine service 09/17. Patient seen and examined. Labs reviewed this morning showed sodium 129, potassium 3.2, BUN 2, creatinine 0.50 bilirubin 19.6, AST 180, ALT 30. Still complaining of nausea and vomiting. Denies abdominal pain. 09/18 Patient still generally weak and jaundiced Other than that his mentation at baseline he has insight into his illness and he knows he is in the hospital. No headache or dizziness. No significant alcohol withdrawal today. His abdomen is distended but soft no pain or tenderness He has 5 bowel movements this morning, discussed with his staff to hold his lactulose. He has some nausea and has been complaining from his back pain. However discussed with staff he is getting morphine [id number] every 3-4 hours. Patient states that he is done with drinking alcohol and he wants to stay sober for now Still mildly tachycardic and afebrile. Ultrasound showing small amount of ascites and hepatomegaly REVIEW OF SYSTEMS: CONSTITUTIONAL: No fever, no malaise,. CARDIOVASCULAR: No chest pain, no palpitations, no syncope. PULMONARY: No shortness of breath, no cough, GASTROINTESTINAL: As mentioned above NEUROLOGICAL: No headaches, no limb weakness, Active Medications Generic Name Dose Route Start Last Admin Trade Name Freq PRN Reason Stop Dose Admin Dapagliflozin 10 mg 09/16/24 09:30 09/18/24 08:59 Dapagliflozin Propanediol 10 Mg Tablet PO 10 mg DAILY BREN Administration Diazepam 5 mg 09/16/24 02:00 09/18/24 08:59 Diazepam 5 Mg/Ml 2 Ml Inj IVP 5 mg Q6H BREN Administration Ferrous Sulfate 325 mg 09/17/24 09:00 09/18/24 08:59 Ferrous Sulfate 325 Mg Tab PO 325 mg DAILY BREN Administration Folic Acid 1 mg 09/16/24 09:15 09/18/24 08:59 Folic Acid 1 Mg Tab PO 1 mg DAILY BREN Administration Furosemide 40 mg 09/16/24 09:15 09/18/24 08:59 Furosemide 40 Mg Tab PO 40 mg DAILY BREN Administration Dextrose/Sodium Chloride 1,000 mls @ 80 mls/hr 09/15/24 19:15 09/18/24 12:01 Dextrose 5%-1/2ns Iv Soln IV Not Given .[id number] BREN Magnesium Sulfate/Dextrose 1 100 mls @ 100 mls/hr 09/18/24 11:30 09/18/24 11:57 gm/ IV Solution IVPB 09/18/24 13:29 100 mls/hr Q1H BREN Administration Lactulose 30 gm 09/17/24 16:00 09/18/24 08:59 Lactulose 20 Gm/30 Ml Cup PO 30 gm TID BREN Administration Lorazepam 2 mg 09/15/24 16:53 Lorazepam 1 Mg Tab PO Q3HR PRN Ciwa 8 To 9 Lorazepam 2 mg 09/15/24 16:53 09/16/24 12:14 Lorazepam 1 Mg Tab PO 2 mg Q2HR PRN Administration Ciwa 10 or greater Lorazepam 1 mg 09/15/24 16:53 Lorazepam 1 Mg Tab PO Q4HR PRN Ciwa 6 To 7 Lorazepam 0.5 mg 09/15/24 16:53 Lorazepam 0.5 Mg Tab PO Q4HR PRN Ciwa 4 To 5 Lorazepam 1 mg 09/15/24 16:53 Lorazepam 1 Mg Tab PO Q1HR PRN Alcohol Withdrawal Lorazepam 1 mg 09/15/24 23:17 Lorazepam 1 Mg/0.5 Ml Vial IV Q2HR PRN CIWA 8 or 9 Lorazepam 1 mg 09/15/24 23:17 09/16/24 22:26 Lorazepam 1 Mg/0.5 Ml Vial IV 1 mg Q1HR PRN Administration CIWA 10 to 15 Magnesium Oxide 400 mg 09/15/24 21:00 09/18/24 08:59 Magnesium Oxide 400 Mg Tab PO 400 mg BID BREN Administration Metoprolol Tartrate 25 mg 09/17/24 09:00 09/18/24 08:59 Metoprolol Tartrate 25 Mg Tab PO 25 mg DAILY BREN Administration Miscellaneous Information 1 each 09/16/24 06:53 Potassium Replacement Protocol 1 Each Misc MISCELLANE DAILY PRN Per Protocol Protocol Morphine Sulfate 4 mg 09/15/24 19:14 09/18/24 09:00 Morphine Sulfate 4 Mg/Ml Syringe IV 4 mg Q4HR PRN Administration Severe Pain (Scale 7 to 10) Multivitamins 1 each 09/17/24 09:00 09/18/24 08:59 Multivitamins, Thera 1 Each Tab PO 1 each DAILY BREN Administration Naloxone HCl 0.2 mg 09/15/24 19:14 Naloxone 0.4 Mg/Ml 1 Ml Vial IV Q2M PRN Opioid Reversal Nicotine 1 patch 09/16/24 16:30 09/18/24 08:59 Nicotine 21mg/24hr Patch TRANSDERM 1 patch DAILY BREN Administration Ondansetron HCl 8 mg 09/18/24 11:14 Ondansetron 4 Mg/2 Ml Vial IVP Q8HR PRN Nausea And Vomiting Pantoprazole Sodium 40 mg 09/17/24 09:00 09/18/24 08:59 Pantoprazole 40 Mg Tablet PO 40 mg DAILY BREN Administration Spironolactone 50 mg 09/16/24 10:00 09/18/24 08:58 Spironolactone 25 Mg Tab PO 50 mg DAILY BREN Administration Thiamine HCl 300 mg 09/16/24 16:00 09/18/24 08:58 Thiamine 100 Mg Tab PO 300 mg TID BREN Administration Objective - Vital Signs Vital signs: Vital Signs Temp 98.4 F 09/18/24 11:33 Pulse 106 H 09/18/24 11:33 Resp 19 09/18/24 11:33 BP 108/72 09/18/24 11:33 Pulse Ox 94 L 09/18/24 11:33 FiO2 Intake & Output 09/17/24 09/18/24 09/18/24 18:59 06:59 18:59 Intake Total 20 20 Balance 20 20 Weight 65 kg Intake: IV 20 20 Invasive Line 2 20 20 Oral 0 Other: Voiding Method Toilet Toilet Toilet Urinal Urinal Urinal # Voids 4 3 # Bowel Movements 3 - Exam -GENERAL: The patient is alert and oriented x3, not in any acute distress. Well developed, well nourished. Generally weak -HEENT: Pupils are round and equally reacting to light. EOMI. No scleral icterus. No conjunctival pallor. Normocephalic, atraumatic. No pharyngeal erythe ma. No thyromegaly. Yellow Sclera CARDIOVASCULAR: S1 and S2 present. No murmurs, rubs, or gallops. PULMONARY: Chest is clear to auscultation, no wheezing , no crackles. -ABDOMEN: Soft, nontender, mildly distended, normoactive bowel sounds. No palpable organomegaly. MUSCULOSKELETAL: No joint swelling or deformity. EXTREMITIES: No cyanosis, clubbing, or pedal edema. NEUROLOGICAL: Gross neurological examination did not reveal any focal deficits. SKIN: No rashes. no petechiae. - Labs CBC & Chem 7: 09/18/24 06:50 09/18/24 06:50 Labs: Abnormal Lab Results - Last 24 Hours (Table) 09/17/24 09/18/24 09/18/24 Range/Units 20:08 06:12 06:12 RBC (4.40-5.60) 10*6/uL Hgb (13.0-17.0) g/dL Hct (39.6-50.0) % MCV (80.0-97.0) fL MCH (27.0-32.0) pg Plt Count (140-440) 10*3/uL PT 47.0 H (10.0-12.5) sec INR 4.8 H (<1.2) Sodium (137-145) mmol/L Potassium (3.5-5.1) mmol/L BUN (9-20) mg/dL Creatinine (0.66-1.25) mg/dL Glucose (74-99) mg/dL POC Glucose (mg/dL) 117 H (70-110) mg/dL Calcium (8.4-10.2) mg/dL Magnesium (1.6-2.3) mg/dL Total Bilirubin (0.2-1.3) mg/dL AST (17-59) U/L Alkaline Phosphatase (38-126) U/L Ammonia 111 H (<30) umol/L Albumin (3.5-5.0) g/dL 09/18/24 09/18/24 09/18/24 Range/Units 06:50 06:50 06:50 RBC 3.07 L (4.40-5.60) 10*6/uL Hgb 10.7 L (13.0-17.0) g/dL Hct 30.1 L (39.6-50.0) % MCV 98.0 H (80.0-97.0) fL MCH 34.9 H (27.0-32.0) pg Plt Count 97 L (140-440) 10*3/uL PT (10.0-12.5) sec INR (<1.2) Sodium 130 L (137-145) mmol/L Potassium 3.1 L (3.5-5.1) mmol/L BUN <2 L (9-20) mg/dL Creatinine 0.62 L (0.66-1.25) mg/dL Glucose 120 H (74-99) mg/dL POC Glucose (mg/dL) (70-110) mg/dL Calcium 7.6 L (8.4-10.2) mg/dL Magnesium 1.4 L (1.6-2.3) mg/dL Total Bilirubin 25.2 H* (0.2-1.3) mg/dL AST 109 H (17-59) U/L Alkaline Phosphatase 425 H (38-126) U/L Ammonia (<30) umol/L Albumin 2.5 L (3.5-5.0) g/dL Assessment and Plan Assessment: Acute liver failure Mild hepatic encephalopathy Alcoholic liver cirrhosis, decompensated with mild ascites Alcohol use disorder Coagulopathy High ammonia Electrolyte abnormality with hyponatremia, hypokalemia and hypomagnesemia. Plan: Continue with D5 half-normal saline at 80 mL Continue with CIWA protocol thiamine GI team consulted appreciated, continue with comfort measures Monitor ammonia Continue with lactulose, lower dose to 20 g twice daily because of frequent bowel movement Continue with Aldactone and Lasix add metoprolol Continue with pain management Labs and medication were reviewed.. Continue same treatment. Continue with symptomatic treatment. Resume home medication. Monitor labs and vitals. DVT and GI prophylaxis. Further recommendations as per clinical course of the patient DVT prophylaxis:no Subcutaneous heparin, patient has coagulopathy GI Prophylaxis: Protonix Prognosis is guarded
--- NOTE | 2024-09-18 13:22 | P.PN ---
Subjective Progress Note Date: 09/18/24 Principal diagnosis: Hepatic encephalopathy, liver cirrhosis This is a 34-year-old male with a history of heavy alcohol abuse with liver cirrhosis who had presented to the emergency department with reported nausea vomiting and diarrhea. Patient has had multiple emergency room visits for intoxication and withdrawal symptoms. History of liver cirrhosis with previous paracentesis. Last paracentesis was May 14, 20202023 with about 4.1 L removed. His last couple ultrasound in June and July showed no significant fluid and paracentesis were canceled. He is maintained on spironolactone 50 mg daily and Lasix 40 mg daily. He denies any nausea or vomiting or abdominal pain at this time. Patient is significantly jaundiced. He was noted to have elevated LFTs and significant elevation in total bilirubin. Gastroenterology was consulted for acute alcohol hepatitis. Patient states he is continues to drink about a pint a day. Patient reports that he broke his back in May and he has been in pain and has been drinking more. States he plans to go to rehab at some point. States he started noticing his skin getting yellow 2 to 3 days ago. Today's labs WBC 7.1 hemoglobin 10.7 hematocrit 34 platelet count 68,000 sodium 129 potassium 3.2 BUN less than 2 creatinine 0.5 total bilirubin 19.6 AST 180 ALT 30 alkaline phosphatase 449 September 18, 2024 Patient seen and examined today as a follow-up. He still remains slow, difficult to understand at times, severely jaundiced. He denies any abdominal pain, nausea or vomiting at this time. His mom is here at the bedside. Repeat INR today continues to climb to 4.8 despite given vitamin K 10 mg orally yeste rday. Total bilirubin also continues to increase with a bilirubin of 25.2 today, and ammonia level increased to 111. Patient states he has had 4 bowel movements today. Patient appears more encephalopathic today. Objective - Vital Signs Vital signs: Vital Signs Temp 98.4 F 09/18/24 11:33 Pulse 106 H 09/18/24 11:33 Resp 19 09/18/24 11:33 BP 108/72 09/18/24 11:33 Pulse Ox 94 L 09/18/24 11:33 FiO2 Intake & Output 09/17/24 09/18/24 09/18/24 18:59 06:59 18:59 Intake Total 20 20 Balance 20 20 Weight 65 kg Intake: IV 20 20 Invasive Line 2 20 20 Oral 0 Other: Voiding Method Toilet Toilet Toilet Urinal Urinal Urinal # Voids 4 3 # Bowel Movements 3 - Exam General appearance: The patient is alert, oriented, appears tired/withdrawn, appears in no acute distress. HET: Head is normocephalic and atraumatic. Conjunctiva pink. Sclera deeply icteric. Neck: Supple without lymphadenopathy. Abdomen: Soft, nontender, nondistended. Extremities: Normal skin color and turgor. No pedal edema Skin: No rashes, severe jaundice. Neurological: Patient is alert and oriented however slow to respond and slow to talk sometimes difficult to understand. Appears encephalopathic. - Labs CBC & Chem 7: 09/18/24 06:50 09/18/24 06:50 Labs: Abnormal Lab Results - Last 24 Hours (Table) 09/17/24 09/18/24 09/18/24 Range/Units 20:08 06:12 06:12 RBC (4.40-5.60) 10*6/uL Hgb (13.0-17.0) g/dL Hct (39.6-50.0) % MCV (80.0-97.0) fL MCH (27.0-32.0) pg Plt Count (140-440) 10*3/uL PT 47.0 H (10.0-12.5) sec INR 4.8 H (<1.2) Sodium (137-145) mmol/L Potassium (3.5-5.1) mmol/L BUN (9-20) mg/dL Creatinine (0.66-1.25) mg/dL Glucose (74-99) mg/dL POC Glucose (mg/dL) 117 H (70-110) mg/dL Calcium (8.4-10.2) mg/dL Magnesium (1.6-2.3) mg/dL Total Bilirubin (0.2-1.3) mg/dL AST (17-59) U/L Alkaline Phosphatase (38-126) U/L Ammonia 111 H (<30) umol/L Albumin (3.5-5.0) g/dL 09/18/24 09/18/24 09/18/24 Range/Units 06:50 06:50 06:50 RBC 3.07 L (4.40-5.60) 10*6/uL Hgb 10.7 L (13.0-17.0) g/dL Hct 30.1 L (39.6-50.0) % MCV 98.0 H (80.0-97.0) fL MCH 34.9 H (27.0-32.0) pg Plt Count 97 L (140-440) 10*3/uL PT (10.0-12.5) sec INR (<1.2) Sodium 130 L (137-145) mmol/L Potassium 3.1 L (3.5-5.1) mmol/L BUN <2 L (9-20) mg/dL Creatinine 0.62 L (0.66-1.25) mg/dL Glucose 120 H (74-99) mg/dL POC Glucose (mg/dL) (70-110) mg/dL Calcium 7.6 L (8.4-10.2) mg/dL Magnesium 1.4 L (1.6-2.3) mg/dL Total Bilirubin 25.2 H* (0.2-1.3) mg/dL AST 109 H (17-59) U/L Alkaline Phosphatase 425 H (38-126) U/L Ammonia (<30) umol/L Albumin 2.5 L (3.5-5.0) g/dL Assessment and Plan (1) Liver failure Narrative/Plan: 34-year-old male with longstanding history of alcohol abuse who continues to drink and was 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 Patient continues to drink a pint of alcohol a day. Has liver cirrhosis with ascites. Last paracentesis in May 2024. He maintains on spironolactone and Lasix. Patient came in with nausea and vomiting he was significantly jaundice. Total bilirubin at 19.6 AST 180 ALT 30 alkaline phosphatase 449, INR initially 2.9 with a repeat today of 4.0. Ammonia level ordered which was elevated at 143. Will start patient on lactulose, give vitamin K for coagulopathy secondary to underlying liver disease. MELD score 35, poor prognosis. This was discussed with patient with his mother who was at the bedside that he has a very poor prognosis and advanced liver disease causing liver failure. Discussed importance of alcohol abstinence. Recommend transferring patient to tertiary center for advanced liver failure. Current Visit: Yes Status: Acute Code(s): K72.90 - HEPATIC FAILURE, UNSPECIFIED WITHOUT COMA SNOMED Code(s): 54231645 (2) Acute alcoholic hepatitis Current Visit: Yes Status: Acute Code(s): K70.10 - ALCOHOLIC HEPATITIS WITHOUT ASCITES SNOMED Code(s): 9830669 (3) Umbilical hernia Current Visit: Yes Status: Acute Code(s): K42.9 - UMBILICAL HERNIA WITHOUT OBSTRUCTION OR GANGRENE SNOMED Code(s): 907851854 (4) Ascites Current Visit: Yes Status: Acute Code(s): R18.8 - OTHER ASCITES SNOMED Code(s): 786080716 (5) Alcohol abuse Current Visit: No Status: Acute Code(s): F10.10 - ALCOHOL ABUSE, UNCOMPLICATED SNOMED Code(s): 78745158 (6) Alcoholic intoxication Current Visit: No Status: Acute Code(s): F10.929 - ALCOHOL USE, UNSPECIFIED WITH INTOXICATION, UNSPECIFIED SNOMED Code(s): 24080597 (7) Hyperammonemia Current Visit: No Status: Acute Code(s): E72.20 - DISORDER OF UREA CYCLE METABOLISM, UNSPECIFIED SNOMED Code(s): 6980554 (8) Hypokalemia Current Visit: Yes Status: Acute Code(s): E87.6 - HYPOKALEMIA SNOMED Code(s): 15003149 (9) Hyponatremia Current Visit: No Status: Acute Code(s): E87.1 - HYPO-OSMOLALITY AND HYPONATREMIA SNOMED Code(s): 63269552 (10) Coagulopathy Narrative/Plan: Secondary to underlying liver disease. Continue to give vitamin K 10 mg orally daily Current Visit: Yes Status: Acute Code(s): D68.9 - COAGULATION DEFECT, UNSPECIFIED SNOMED Code(s): 76025284 (11) Hepatic encephalopathy Current Visit: Yes Status: Acute Code(s): K76.82 - HEPATIC ENCEPHALOPATHY SNOMED Code(s): 80078661 Plan: 1. Continue symptomatic and supportive care 2. Daily CBC, CMP, INR, ammonia level 3. Supplement electrolytes per protocol 4. Consider possible consultation to nephrology secondary to hyponatremia and hypokalemia in setting of liver failure and 5. Patient may have low-sodium diet 6. Will give vitamin K 10 mg p.o. today, likely will need to repeat daily for next 2 to 3 days based on INR 7. Avoid hepatotoxic medications 8. Start Xifaxan 550 mg twice daily 9. Discussed with patient importance of alcohol abstinence. MELD score 35, patient with poor prognosis especially in setting of continued alcohol consumption. 10. Discussed with patient concerns for advanced liver failure with worsening hepatic encephalopathy, hyperbilirubinemia and coagulopathy. Recommend transfer to tertiary center, recommendation [facility] in [place]. Transfer was discussed with primary care team who will initiate transfer. Thank you for this consultation, we will continue to follow closely. Dr. Brenda Ross I agree with the dictator's note, documented as a scribe by Omayra Duffy.
[2024-09-18 16:53] LABS: Glucose,Whole Blood 112 mg/dL (70-110)
[2024-09-18 19:54] LABS: Glucose,Whole Blood 139 mg/dL (70-110)
[2024-09-18] MEDS: ONDANSETRON 4 MG/2 ML VIAL IVP PRN (20:57)
[2024-09-18] MEDS: RIFAXIMIN 550 MG TABLET PO SCH (20:59)
[2024-09-18] MEDS: LACTULOSE 20 GM/30 ML CUP PO SCH (20:59)
[2024-09-19] MEDS: LORazepam 1 MG/0.5 ML VIAL IV PRN (02:58)
[2024-09-19 05:57] LABS: Glucose,Whole Blood 118 mg/dL (70-110)
[2024-09-19 06:44] LABS: Basophils # (A) 0.03 10*3/uL (0.00-0.10); Basophils % (A) 0.4 %; Eosinophils # (A) 0.08 10*3/uL (0.04-0.35); HCT 26.3 % (39.6-50.0); HGB 9.3 g/dL (13.0-17.0); Immature Platelet Fraction 4.2 % (1.1-6.1); Lymphocytes # (A) 1.44 10*3/uL (0.90-5.00); Lymphocytes % (A) 18.4 %; MCH 34.6 pg (27.0-32.0); MCHC 35.4 g/dL (32.0-37.0); MCV 97.8 fL (80.0-97.0); Mean Platelet Volume 10.6 fL (9.5-12.2); Monocytes # (A) 1.18 10*3/uL (0.20-1.00); Monocytes % (A) 15.1 %; Neutrophils # (A) 5.03 10*3/uL (1.80-7.70); Neutrophils % (A) 64.3 %; Platelet Count 102 10*3/uL (140-440); RBC 2.69 10*6/uL (4.40-5.60); RDW 21.2 % (11.5-14.5); WBC 7.82 10*3/uL (4.50-10.00)
[2024-09-19 07:05] LABS: ALT 20 U/L (4-49); AST 65 U/L (17-59); African American GFR (CKD) >90 (>60 ml/min/1.73 sqM); Albumin 2.1 g/dL (3.5-5.0); Anion Gap 4 mmol/L; Bilirubin, Conjugated 16.4 mg/dL (0.0-0.3); Bilirubin,Unconjugated 2.4 mg/dL (0.0-1.1); Blood Urea Nitrogen <2 mg/dL (9-20); Calcium 7.5 mg/dL (8.4-10.2); Carbon Dioxide 26 mmol/L (22-30); Chloride 100 mmol/L (98-107); Glucose 105 mg/dL (74-99); Magnesium 1.8 mg/dL (1.6-2.3); Non-African American GFR(CKD) >90 (>60 ml/min/1.73 sqM); Sodium 130 mmol/L (137-145)
[2024-09-19 07:13] LABS: Bilirubin, Delta 5.6 mg/dL (0.0-0.2)
[2024-09-19 07:29] LABS: Potassium 2.7 mmol/L (3.5-5.1); Total Protein 6.4 g/dL (6.3-8.2)
[2024-09-19 07:30] LABS: Alkaline Phosphatase 344 U/L (38-126); Total Bilirubin 24.4 mg/dL (0.2-1.3)
[2024-09-19 07:38] LABS: INR 3.9 (<1.2); Prothrombin Time 38.3 sec (10.0-12.5)
[2024-09-19] MEDS: PHYTONADIONE ORAL 5 MG/5 ML ORAL.SYRG PO STA (09:09)
[2024-09-19] MEDS: POTASSIUM CHLORIDE ER 20 MEQ TAB.ER PO SCH (09:12)
--- NOTE | 2024-09-19 10:31 | P.PN ---
Subjective patient is a 34-year-old gentleman past medical history significant for alcohol induced liver cirrhosis who presented to the ER because of nausea and vomiting. Patient has been seen in the past with similar complaints. Patient stated he has been drinking excessively for the last few weeks, administering around 1 pint per day. Patient has been complaining of nausea and vomiting. Denies abdominal pain. There is no complaint of fever or chills. Patient denies any orthopnea or PND. There is no chest pain or shortness of breath. Because of the symptoms, patient presented to the ER Initial lab work done in the ER showed WBC 9.5, hemoglobin 7.6, platelet count 105, sodium 137, potassium 2.6, BUN 2, creatinine 0.60, lactate 5.2 bilirubin 18.2 AST 247, ALT 39, ammonia 61, protein 9, albumin 3.4 UA negative for any infection Urine drug screen positive for marijuana EKG done in the ER showed heart rate of 115, no ST segment elevation or depression seen, no T-wave inversions seen. Patient admitted to internal medicine service 09/17. Patient seen and examined. Labs reviewed this morning showed sodium 129, potassium 3.2, BUN 2, creatinine 0.50 bilirubin 19.6, AST 180, ALT 30. Still complaining of nausea and vomiting. Denies abdominal pain. 09/18 Patient still generally weak and jaundiced Other than that his mentation at baseline he has insight into his illness and he knows he is in the hospital. No headache or dizziness. No significant alcohol withdrawal today. His abdomen is distended but soft no pain or tenderness He has 5 bowel movements this morning, discussed with his staff to hold his lactulose. He has some nausea and has been complaining from his back pain. However discussed with staff he is getting morphine [id number] every 3-4 hours. Patient states that he is done with drinking alcohol and he wants to stay sober for now Still mildly tachycardic and afebrile. Ultrasound showing small amount of ascites and hepatomegaly 09/19 Patient is more confused today, he knows he is in the hospital but is disorie nted to time and partially to person. He has partial insight to his illness. He is afebrile and vital stable He is having 1 loose bowel movement this morning. We are going to increase lactulose to 30 mg twice daily instead of 20 mg. Will give him also 1 extra dose today. follow-up ammonia level. Hemoglobin slightly low today at 9.3, no evidence of bleeding. Will order vitamin B12 and monitor hemoglobin. Try to avoid more blood thinners or aspirin. He remains on D5 half-normal saline and he is on CIWA protoc INR today 3.9 Total bilirubin is slightly less or almost the same 24.4 liver enzymes improving. Ammonia level is 86. Patient has got accepted at [facility] to be evaluated by dye reel operator. Pending bed availability REVIEW OF SYSTEMS: CONSTITUTIONAL: No fever, no malaise,. CARDIOVASCULAR: No chest pain, no palpitations, no syncope. PULMONARY: No shortness of breath, no cough, GASTROINTESTINAL: As mentioned above NEUROLOGICAL: No headaches, no limb weakness, Active Medications Generic Name Dose Route Start Last Admin Trade Name Freq PRN Reason Stop Dose Admin Dapagliflozin 10 mg 09/16/24 09:30 09/19/24 09:06 Dapagliflozin Propanediol 10 Mg Tablet PO 10 mg DAILY BREN Administration Diazepam 5 mg 09/16/24 02:00 09/19/24 08:50 Diazepam 5 Mg/Ml 2 Ml Inj IVP 5 mg Q6H BREN Administration Ferrous Sulfate 325 mg 09/17/24 09:00 09/19/24 09:06 Ferrous Sulfate 325 Mg Tab PO 325 mg DAILY BREN Administration Folic Acid 1 mg 09/16/24 09:15 09/19/24 09:07 Folic Acid 1 Mg Tab PO 1 mg DAILY BREN Administration Furosemide 40 mg 09/16/24 09:15 09/19/24 09:08 Furosemide 40 Mg Tab PO 40 mg DAILY BREN Administration Dextrose/Sodium Chloride 1,000 mls @ 40 mls/hr 09/15/24 19:15 09/19/24 09:42 Dextrose 5%-1/2ns Iv Soln IV Not Given .Q24H BREN Magnesium Sulfate/Dextrose 1 100 mls @ 100 mls/hr 09/19/24 10:30 gm/ IV Solution IVPB 09/19/24 12:29 Q1H BREN Potassium Chloride 10 meq/ IV 100 mls @ 100 mls/hr 09/19/24 10:30 Solution IVPB 09/19/24 12:29 Q1H BREN Lactulose 30 gm 09/19/24 21:00 Lactulose 20 Gm/30 Ml Cup PO BID BREN Lorazepam 2 mg 09/15/24 16:53 Lorazepam 1 Mg Tab PO Q3HR PRN Ciwa 8 To 9 Lorazepam 2 mg 09/15/24 16:53 09/16/24 12:14 Lorazepam 1 Mg Tab PO 2 mg Q2HR PRN Administration Ciwa 10 or greater Lorazepam 1 mg 09/15/24 16:53 Lorazepam 1 Mg Tab PO Q4HR PRN Ciwa 6 To 7 Lorazepam 0.5 mg 09/15/24 16:53 Lorazepam 0.5 Mg Tab PO Q4HR PRN Ciwa 4 To 5 Lorazepam 1 mg 09/15/24 16:53 Lorazepam 1 Mg Tab PO Q1HR PRN Alcohol Withdrawal Lorazepam 1 mg 09/15/24 23:17 09/19/24 06:29 Lorazepam 1 Mg/0.5 Ml Vial IV 1 mg Q2HR PRN Administration CIWA 8 or 9 Lorazepam 1 mg 09/15/24 23:17 09/19/24 04:02 Lorazepam 1 Mg/0.5 Ml Vial IV 1 mg Q1HR PRN Administration CIWA 10 to 15 Magnesium Oxide 400 mg 09/15/24 21:00 09/19/24 09:07 Magnesium Oxide 400 Mg Tab PO 400 mg BID BREN Administration Metoprolol Tartrate 25 mg 09/17/24 09:00 09/19/24 09:08 Metoprolol Tartrate 25 Mg Tab PO 25 mg DAILY BREN Administration Miscellaneous Information 1 each 09/16/24 06:53 Potassium Replacement Protocol 1 Each Misc MISCELLANE DAILY PRN Per Protocol Protocol Morphine Sulfate 4 mg 09/15/24 19:14 09/18/24 20:59 Morphine Sulfate 4 Mg/Ml Syringe IV 4 mg Q4HR PRN Administration Severe Pain (Scale 7 to 10) Multivitamins 1 each 09/17/24 09:00 09/19/24 09:08 Multivitamins, Thera 1 Each Tab PO 1 each DAILY BREN Administration Naloxone HCl 0.2 mg 09/15/24 19:14 Naloxone 0.4 Mg/Ml 1 Ml Vial IV Q2M PRN Opioid Reversal Nicotine 1 patch 09/16/24 16:30 09/19/24 01:31 Nicotine 21mg/24hr Patch TRANSDERM 1 patch DAILY BREN Administration Ondansetron HCl 8 mg 09/18/24 11:14 09/18/24 20:57 Ondansetron 4 Mg/2 Ml Vial IVP 8 mg Q8HR PRN Administration Nausea And Vomiting Pantoprazole Sodium 40 mg 09/17/24 09:00 09/19/24 09:06 Pantoprazole 40 Mg Tablet PO 40 mg DAILY BREN Administration Potassium Chloride 20 meq 09/19/24 09:00 09/19/24 09:12 Potassium Chloride Er 20 Meq Tab.Er PO 09/19/24 11:01 20 meq Q1HR BREN Administration Protocol Rifaximin 550 mg 09/18/24 21:00 09/19/24 09:08 Rifaximin 550 Mg Tablet PO 10/18/24 20:59 550 mg BID BREN Administration Protocol Spironolactone 50 mg 09/16/24 10:00 09/19/24 09:06 Spironolactone 25 Mg Tab PO 50 mg DAILY BREN Administration Thiamine HCl 300 mg 09/16/24 16:00 09/19/24 09:07 Thiamine 100 Mg Tab PO 300 mg TID BREN Administration Objective - Vital Signs Vital signs: Vital Signs Temp 98.1 F 09/19/24 07:46 Pulse 96 09/19/24 08:49 Resp 18 09/19/24 08:49 BP 114/68 09/19/24 07:46 Pulse Ox 92 L 09/19/24 07:46 FiO2 Intake & Output 09/18/24 09/19/24 09/19/24 18:59 06:59 18:59 Intake Total 10 90 Balance 10 90 Weight 79 kg Intake: IV 10 10 Invasive Line 3 10 Invasive Line 4 10 Intake, IV Titration 80 Amount Dextrose 5%-0.45% NaCl 1, 80 000 ml @ 40 mls/hr IV . Q24H [facility] Rx#:[id number] Other: Voiding Method Toilet Toilet Toilet Urinal Urinal Urinal # Voids 5 2 # Bowel Movements 4 3 1 - Exam -GENERAL: The patient is alert and oriented x3, not in any acute distress. Well developed, well nourished. Generally weak -HEENT: Pupils are round and equally reacting to light. EOMI. No scleral icterus. No conjunctival pallor. Normocephalic, atraumatic. No pharyngeal erythema. No thyromegaly. Yellow Sclera CARDIOVASCULAR: S1 and S2 present. No murmurs, rubs, or gallops. PULMONARY: Chest is clear to auscultation, no wheezing , no crackles. -ABDOMEN: Soft, nontender, mildly distended, normoactive bowel sounds. No palpable organomegaly. MUSCULOSKELETAL: No joint swelling or deformity. EXTREMITIES: No cyanosis, clubbing, or pedal edema. NEUROLOGICAL: Gross neurological examination did not reveal any focal deficits. SKIN: No rashes. no petechiae. - Labs CBC & Chem 7: 09/19/24 06:25 09/19/24 06:15 Labs: Abnormal Lab Results - Last 24 Hours (Table) 09/18/24 09/18/24 09/19/24 Range/Units 16:52 19:52 05:56 RBC (4.40-5.60) 10*6/uL Hgb (13.0-17.0) g/dL Hct (39.6-50.0) % MCV (80.0-97.0) fL MCH (27.0-32.0) pg Plt Count (140-440) 10*3/uL Immature Gran # (0.00-0.04) 10*3/uL Monocytes # (0.20-1.00) 10*3/uL PT (10.0-12.5) sec INR (<1.2) Sodium (137-145) mmol/L Potassium (3.5-5.1) mmol/L BUN (9-20) mg/dL Glucose (74-99) mg/dL POC Glucose (mg/dL) 112 H 139 H 118 H (70-110) mg/dL Calcium (8.4-10.2) mg/dL Total Bilirubin (0.2-1.3) mg/dL Conjugated Bilirubin (0.0-0.3) mg/dL Unconjugated Bilirubin (0.0-1.1) mg/dL Delta Bilirubin (0.0-0.2) mg/dL AST (17-59) U/L Alkaline Phosphatase (38-126) U/L Ammonia (<30) umol/L Albumin (3.5-5.0) g/dL 09/19/24 09/19/24 09/19/24 Range/Units 06:15 06:25 06:25 RBC 2.69 L (4.40-5.60) 10*6/uL Hgb 9.3 L (13.0-17.0) g/dL Hct 26.3 L (39.6-50.0) % MCV 97.8 H (80.0-97.0) fL MCH 34.6 H (27.0-32.0) pg Plt Count 102 L (140-440) 10*3/uL Immature Gran # 0.06 H (0.00-0.04) 10*3/uL Monocytes # 1.18 H (0.20-1.00) 10*3/uL PT 38.3 H (10.0-12.5) sec INR 3.9 H (<1.2) Sodium 130 L (137-145) mmol/L Potassium 2.7 L* (3.5-5.1) mmol/L BUN <2 L (9-20) mg/dL Glucose 105 H (74-99) mg/dL POC Glucose (mg/dL) (70-110) mg/dL Calcium 7.5 L (8.4-10.2) mg/dL Total Bilirubin 24.4 H* (0.2-1.3) mg/dL Conjugated Bilirubin 16.4 H (0.0-0.3) mg/dL Unconjugated Bilirubin 2.4 H (0.0-1.1) mg/dL Delta Bilirubin 5.6 H (0.0-0.2) mg/dL AST 65 H (17-59) U/L Alkaline Phosphatase 344 H (38-126) U/L Ammonia (<30) umol/L Albumin 2.1 L (3.5-5.0) g/dL 09/19/24 Range/Units 08:46 RBC (4.40-5.60) 10*6/uL Hgb (13.0-17.0) g/dL Hct (39.6-50.0) % MCV (80.0-97.0) fL MCH (27.0-32.0) pg Plt Count (140-440) 10*3/uL Immature Gran # (0.00-0.04) 10*3/uL Monocytes # (0.20-1.00) 10*3/uL PT (10.0-12.5) sec INR (<1.2) Sodium (137-145) mmol/L Potassium (3.5-5.1) mmol/L BUN (9-20) mg/dL Glucose (74-99) mg/dL POC Glucose (mg/dL) (70-110) mg/dL Calcium (8.4-10.2) mg/dL Total Bilirubin (0.2-1.3) mg/dL Conjugated Bilirubin (0.0-0.3) mg/dL Unconjugated Bilirubin (0.0-1.1) mg/dL Delta Bilirubin (0.0-0.2) mg/dL AST (17-59) U/L Alkaline Phosphatase (38-126) U/L Ammonia 86 H (<30) umol/L Albumin (3.5-5.0) g/dL Assessment and Plan Assessment: Acute liver failure Mild hepatic encephalopathy Alcoholic liver cirrhosis, decompensated with mild ascites Alcohol use disorder Coagulopathy High ammonia Electrolyte abnormality with hyponatremia, hypokalemia and hypomagnesemia. Plan: Got accepted by [facility] pending bed availability Continue with D5 half-normal saline at 80 mL Continue with CIWA protocol thiamine GI team consulted appreciated, continue with comfort measures Monitor ammonia Continue with lactulose, lower dose to 30 g twice daily Continue with Aldactone and Lasix add metoprolol Continue with pain management Labs and medication were reviewed.. Continue same treatment. Continue with symptomatic treatment. Resume home medication. Monitor labs and vitals. DVT and GI prophylaxis. Further recommendations as per clinical course of the patient DVT prophylaxis:no Subcutaneous heparin, patient has coagulopathy GI Prophylaxis: Protonix Prognosis is guarded
[2024-09-19] MEDS: LACTULOSE 20 GM/30 ML CUP PO ONE (10:33)
[2024-09-19] MEDS: POTASSIUM CHLORIDE 10 MEQ in WATER FOR INJECTION 1 100ML.BAG IVPB SCH ×2 (10:35→18:25)
[2024-09-19] MEDS: MAGNESIUM SULFATE-D5W PMX 1 GM in DEXTROSE/WATER 1 100ML.BAG IVPB SCH (10:51)
[2024-09-19 11:18] LABS: Glucose,Whole Blood 184 mg/dL (70-110)
--- NOTE | 2024-09-19 13:46 | P.PN ---
Subjective Progress Note Date: 09/19/24 Principal diagnosis: Hepatic encephalopathy, liver cirrhosis This is a 34-year-old male with a history of heavy alcohol abuse with liver cirrhosis who had presented to the emergency department with reported nausea vomiting and diarrhea. Patient has had multiple emergency room visits for intoxication and withdrawal symptoms. History of liver cirrhosis with previous paracentesis. Last paracentesis was May 14, 20202023 with about 4.1 L removed. His last couple ultrasound in June and July showed no significant fluid and paracentesis were canceled. He is maintained on spironolactone 50 mg daily and Lasix 40 mg daily. He denies any nausea or vomiting or abdominal pain at this time. Patient is significantly jaundiced. He was noted to have elevated LFTs and significant elevation in total bilirubin. Gastroenterology was consulted for acute alcohol hepatitis. Patient states he is continues to drink about a pint a day. Patient reports that he broke his back in May and he has been in pain and has been drinking more. States he plans to go to rehab at some point. States he started noticing his skin getting yellow 2 to 3 days ago. Today's labs WBC 7.1 hemoglobin 10.7 hematocrit 34 platelet count 68,000 sodium 129 potassium 3.2 BUN less than 2 creatinine 0.5 total bilirubin 19.6 AST 180 ALT 30 alkaline phosphatase 449 September 18, 2024 Patient seen and examined today as a follow-up. He still remains slow, difficult to understand at times, severely jaundiced. He denies any abdominal pain, nausea or vomiting at this time. His mom is here at the bedside. Repeat INR today continues to climb to 4.8 despite given vitamin K 10 mg orally yeste rday. Total bilirubin also continues to increase with a bilirubin of 25.2 today, and ammonia level increased to 111. Patient states he has had 4 bowel movements today. Patient appears more encephalopathic today. September 19, 2024 Patient seen and examined today as a follow-up. Mentation and hepatic encephalopathy seems to be worsening. Patient is now requiring a sitter at the bedside. He has pulled out multiple IVs. He is becoming unsteady on his feet. He is a remains extremely jaundiced. Patient has been accepted as a transfer to [facility], waiting on a bed. Today's labs WBC 7.8 hemoglobin 9.3 platelet count 102,000 INR 3.9 sodium 130 potassium 2.7 BUN less than 2 creatinine 0.6 total bilirubin 24.4 AST 65 ALT 20 alkaline phosphatase 344 ammonia 86. Apparently patient had also been refusing his lactulose yesterday evening. He did take his lactulose this morning. Patient had 4 bowel movements yesterday. Objective - Vital Signs Vital signs: Vital Signs Temp 98.1 F 09/19/24 07:46 Pulse 96 09/19/24 08:49 Resp 18 09/19/24 08:49 BP 114/68 09/19/24 07:46 Pulse Ox 92 L 09/19/24 07:46 FiO2 Intake & Output 09/18/24 09/19/24 09/19/24 18:59 06:59 18:59 Intake Total 10 90 Balance 10 90 Weight 79 kg Intake: IV 10 10 Invasive Line 3 10 Invasive Line 4 10 Intake, IV Titration 80 Amount Dextrose 5%-0.45% NaCl 1, 80 000 ml @ 40 mls/hr IV . Q24H [facility] Rx#:[id number] Other: Voiding Method Toilet Toilet Toilet Urinal Urinal Urinal # Voids 5 2 # Bowel Movements 4 3 1 - Exam General appearance: The patient is alert, oriented, appears tired/withdrawn, appears in no acute distress. HET: Head is normocephalic and atraumatic. Conjunctiva pink. Sclera deeply icteric. Neck: Supple without lymphadenopathy. Abdomen: Soft, nontender, nondistended. Extremities: Normal skin color and turgor. No pedal edema Skin: No rashes, severe jaundice. Neurological: Patient is alert and oriented to self. Patient is somewhat obtunded, remains confused, speech is difficult to understand. . - Labs CBC & Chem 7: 09/19/24 06:25 09/19/24 06:15 Labs: Abnormal Lab Results - Last 24 Hours (Table) 09/18/24 09/18/24 09/19/24 Range/Units 16:52 19:52 05:56 RBC (4.40-5.60) 10*6/uL Hgb (13.0-17.0) g/dL Hct (39.6-50.0) % MCV (80.0-97.0) fL MCH (27.0-32.0) pg Plt Count (140-440) 10*3/uL Immature Gran # (0.00-0.04) 10*3/uL Monocytes # (0.20-1.00) 10*3/uL PT (10.0-12.5) sec INR (<1.2) Sodium (137-145) mmol/L Potassium (3.5-5.1) mmol/L BUN (9-20) mg/dL Glucose (74-99) mg/dL POC Glucose (mg/dL) 112 H 139 H 118 H (70-110) mg/dL Calcium (8.4-10.2) mg/dL Total Bilirubin (0.2-1.3) mg/dL Conjugated Bilirubin (0.0-0.3) mg/dL Unconjugated Bilirubin (0.0-1.1) mg/dL Delta Bilirubin (0.0-0.2) mg/dL AST (17-59) U/L Alkaline Phosphatase (38-126) U/L Ammonia (<30) umol/L Albumin (3.5-5.0) g/dL 09/19/24 09/19/24 09/19/24 Range/Units 06:15 06:25 06:25 RBC 2.69 L (4.40-5.60) 10*6/uL Hgb 9.3 L (13.0-17.0) g/dL Hct 26.3 L (39.6-50.0) % MCV 97.8 H (80.0-97.0) fL MCH 34.6 H (27.0-32.0) pg Plt Count 102 L (140-440) 10*3/uL Immature Gran # 0.06 H (0.00-0.04) 10*3/uL Monocytes # 1.18 H (0.20-1.00) 10*3/uL PT 38.3 H (10.0-12.5) sec INR 3.9 H (<1.2) Sodium 130 L (137-145) mmol/L Potassium 2.7 L* (3.5-5.1) mmol/L BUN <2 L (9-20) mg/dL Glucose 105 H (74-99) mg/dL POC Glucose (mg/dL) (70-110) mg/dL Calcium 7.5 L (8.4-10.2) mg/dL Total Bilirubin 24.4 H* (0.2-1.3) mg/dL Conjugated Bilirubin 16.4 H (0.0-0.3) mg/dL Unconjugated Bilirubin 2.4 H (0.0-1.1) mg/dL Delta Bilirubin 5.6 H (0.0-0.2) mg/dL AST 65 H (17-59) U/L Alkaline Phosphatase 344 H (38-126) U/L Ammonia (<30) umol/L Albumin 2.1 L (3.5-5.0) g/dL 09/19/24 Range/Units 08:46 RBC (4.40-5.60) 10*6/uL Hgb (13.0-17.0) g/dL Hct (39.6-50.0) % MCV (80.0-97.0) fL MCH (27.0-32.0) pg Plt Count (140-440) 10*3/uL Immature Gran # (0.00-0.04) 10*3/uL Monocytes # (0.20-1.00) 10*3/uL PT (10.0-12.5) sec INR (<1.2) Sodium (137-145) mmol/L Potassium (3.5-5.1) mmol/L BUN (9-20) mg/dL Glucose (74-99) mg/dL POC Glucose (mg/dL) (70-110) mg/dL Calcium (8.4-10.2) mg/dL Total Bilirubin (0.2-1.3) mg/dL Conjugated Bilirubin (0.0-0.3) mg/dL Unconjugated Bilirubin (0.0-1.1) mg/dL Delta Bilirubin (0.0-0.2) mg/dL AST (17-59) U/L Alkaline Phosphatase (38-126) U/L Ammonia 86 H (<30) umol/L Albumin (3.5-5.0) g/dL Assessment and Plan (1) Liver failure Narrative/Plan: 34-year-old male with longstanding history of alcohol abuse who continues to drink and was 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 Patient continues to drink a pint of alcohol a day. Has liver cirrhosis with ascites. Last paracentesis in May 2024. He maintains on spironolactone and Lasix. Patient came in with nausea and vomiting he was significantly jaundice. Total bilirubin at 19.6 AST 180 ALT 30 alkaline phosphatase 449, INR initially 2.9 with a repeat today of 4.0. Ammonia level ordered which was elevated at 143. Will start patient on lactulose, give vitamin K for coagulopathy secondary to underlying liver disease. MELD score 35, poor prognosis. This was discussed with patient with his mother who was at the bedside that he has a very poor prognosis and advanced liver disease causing liver failure. Discussed imp ortance of alcohol abstinence. Recommend transferring patient to tertiary center for advanced liver failure. Current Visit: Yes Status: Acute Code(s): K72.90 - HEPATIC FAILURE, UNSPECIFIED WITHOUT COMA SNOMED Code(s): 77385876 (2) Acute alcoholic hepatitis Current Visit: Yes Status: Acute Code(s): K70.10 - ALCOHOLIC HEPATITIS WITHOUT ASCITES SNOMED Code(s): 6308168 (3) Umbilical hernia Current Visit: Yes Status: Acute Code(s): K42.9 - UMBILICAL HERNIA WITHOUT OBSTRUCTION OR GANGRENE SNOMED Code(s): 891706175 (4) Ascites Current Visit: Yes Status: Acute Code(s): R18.8 - OTHER ASCITES SNOMED Code(s): 938453591 (5) Alcohol abuse Current Visit: No Status: Acute Code(s): F10.10 - ALCOHOL ABUSE, UNCOMPLICATED SNOMED Code(s): 28465350 (6) Alcoholic intoxication Current Visit: No Status: Acute Code(s): F10.929 - ALCOHOL USE, UNSPECIFIED WITH INTOXICATION, UNSPECIFIED SNOMED Code(s): 71826803 (7) Hyperammonemia Current Visit: No Status: Acute Code(s): E72.20 - DISORDER OF UREA CYCLE METABOLISM, UNSPECIFIED SNOMED Code(s): 6433418 (8) Hypokalemia Current Visit: Yes Status: Acute Code(s): E87.6 - HYPOKALEMIA SNOMED Code(s): 02688884 (9) Hyponatremia Current Visit: No Status: Acute Code(s): E87.1 - HYPO-OSMOLALITY AND HY PONATREMIA SNOMED Code(s): 02501056 (10) Coagulopathy Current Visit: Yes Status: Acute Code(s): D68.9 - COAGULATION DEFECT, UNSPECIFIED SNOMED Code(s): 83052599 (11) Hepatic encephalopathy Narrative/Plan: Worsening hepatic encephalopathy despite adding Xifaxan. Continue with lactulose as ordered, titrate to have 3-4 bowel movements daily. Current Visit: Yes Status: Acute Code(s): K76.82 - HEPATIC ENCEPHALOPATHY SNOMED Code(s): 88603026 Plan: 1. Continue symptomatic and supportive care 2. Daily CBC, CMP, INR, ammonia level 3. Supplement electrolytes per protocol 4. Discontinue spironolactone and Lasix for now secondary to hyponatremia and hypokalemia 5. Patient may have low-sodium diet 6. Will give vitamin K 10 mg p.o. today 7. Avoid hepatotoxic medications 8. Continue Xifaxan 550 mg twice daily 9. Continue with lactulose, discussed importance of compliance with patient and nursing. Titrate to have 3-4 bowel movements daily 10. Discussed with patient importance of alcohol abstinence. MELD score 35, patient with poor prognosis especially in setting of continued alcohol consumption. 11. Discussed with patient concerns for advanced liver failure with worsening hepatic encephalopathy, hyperbilirubinemia and coagulopathy. Recommend transfer to tertiary center, recommendation [facility] in [place]. Transfer was discussed with primary care team. Transfer has been initiated and patient has been accepted to [facility] in [place] awaiting a bed at this time. Continue symptomatic treatment. Thank you for this consultation, we will continue to follow closely. Dr. Brenda Ross I agree with the dictator's note, documented as a scribe by Omayra Duffy.
[2024-09-19 16:11] LABS: Glucose,Whole Blood 131 mg/dL (70-110)
[2024-09-19 17:23] LABS: Glucose,Whole Blood 116 mg/dL (70-110)
[2024-09-19 17:36] LABS: HCT 29.6 % (39.6-50.0); Immature Platelet Fraction 3.1 % (1.1-6.1); MCH 35.2 pg (27.0-32.0); MCHC 34.5 g/dL (32.0-37.0); MCV 102.1 fL (80.0-97.0); Mean Platelet Volume 10.7 fL (9.5-12.2); Platelet Count 104 10*3/uL (140-440); RDW 22.2 % (11.5-14.5); WBC 7.71 10*3/uL (4.50-10.00)
[2024-09-19 17:43] LABS: HGB 10.2 g/dL (13.0-17.0)
[2024-09-19 17:56] LABS: Magnesium 2.3 mg/dL (1.6-2.3); Potassium 3.3 mmol/L (3.5-5.1)
[2024-09-19 20:14] LABS: Glucose,Whole Blood 109 mg/dL (70-110)
[2024-09-19] MEDS: LACTULOSE 20 GM/30 ML CUP PO SCH (20:39)
[2024-09-20 06:04] LABS: Glucose,Whole Blood 127 mg/dL (70-110)
[2024-09-20 08:20] LABS: HCT 30.8 % (39.6-50.0); HGB 10.8 g/dL (13.0-17.0); Immature Platelet Fraction 3.8 % (1.1-6.1); MCH 35.2 pg (27.0-32.0); MCHC 35.1 g/dL (32.0-37.0); MCV 100.3 fL (80.0-97.0); Mean Platelet Volume 10.8 fL (9.5-12.2); Platelet Count 122 10*3/uL (140-440); RBC 3.07 10*6/uL (4.40-5.60); RDW 22.2 % (11.5-14.5); WBC 6.49 10*3/uL (4.50-10.00)
[2024-09-20 08:41] LABS: ALT 19 U/L (4-49); AST 70 U/L (17-59); African American GFR (CKD) >90 (>60 ml/min/1.73 sqM); Albumin 2.2 g/dL (3.5-5.0); Anion Gap 3 mmol/L; Blood Urea Nitrogen <2 mg/dL (9-20); Calcium 7.5 mg/dL (8.4-10.2); Carbon Dioxide 24 mmol/L (22-30); Chloride 106 mmol/L (98-107); Glucose 108 mg/dL (74-99); Non-African American GFR(CKD) >90 (>60 ml/min/1.73 sqM); Potassium 3.3 mmol/L (3.5-5.1); Sodium 133 mmol/L (137-145)
[2024-09-20 08:50] LABS: Total Protein 6.7 g/dL (6.3-8.2)
[2024-09-20 08:51] LABS: Alkaline Phosphatase 356 U/L (38-126); Total Bilirubin 25.9 mg/dL (0.2-1.3)
[2024-09-20 09:19] LABS: INR 3.4 (<1.2); Prothrombin Time 34.2 sec (10.0-12.5)
--- NOTE | 2024-09-20 09:53 | P.PN ---
Subjective patient is a 34-year-old gentleman past medical history significant for alcohol induced liver cirrhosis who presented to the ER because of nausea and vomiting. Patient has been seen in the past with similar complaints. Patient stated he has been drinking excessively for the last few weeks, administering around 1 pint per day. Patient has been complaining of nausea and vomiting. Denies abdominal pain. There is no complaint of fever or chills. Patient denies any orthopnea or PND. There is no chest pain or shortness of breath. Because of the symptoms, patient presented to the ER Initial lab work done in the ER showed WBC 9.5, hemoglobin 7.6, platelet count 105, sodium 137, potassium 2.6, BUN 2, creatinine 0.60, lactate 5.2 bilirubin 18.2 AST 247, ALT 39, ammonia 61, protein 9, albumin 3.4 UA negative for any infection Urine drug screen positive for marijuana EKG done in the ER showed heart rate of 115, no ST segment elevation or depression seen, no T-wave inversions seen. Patient admitted to internal medicine service 09/17. Patient seen and examined. Labs reviewed this morning showed sodium 129, potassium 3.2, BUN 2, creatinine 0.50 bilirubin 19.6, AST 180, ALT 30. Still complaining of nausea and vomiting. Denies abdominal pain. 09/18 Patient still generally weak and jaundiced Other than that his mentation at baseline he has insight into his illness and he knows he is in the hospital. No headache or dizziness. No significant alcohol withdrawal today. His abdomen is distended but soft no pain or tenderness He has 5 bowel movements this morning, discussed with his staff to hold his lactulose. He has some nausea and has been complaining from his back pain. However discussed with staff he is getting morphine [id number] every 3-4 hours. Patient states that he is done with drinking alcohol and he wants to stay sober for now Still mildly tachycardic and afebrile. Ultrasound showing small amount of ascites and hepatomegaly 09/19 Patient is more confused today, he knows he is in the hospital but is disorie nted to time and partially to person. He has partial insight to his illness. He is afebrile and vital stable He is having 1 loose bowel movement this morning. We are going to increase lactulose to 30 mg twice daily instead of 20 mg. Will give him also 1 extra dose today. follow-up ammonia level. Hemoglobin slightly low today at 9.3, no evidence of bleeding. Will order vitamin B12 and monitor hemoglobin. Try to avoid more blood thinners or aspirin. He remains on D5 half-normal saline and he is on CIWA protoc INR today 3.9 Total bilirubin is slightly less or almost the same 24.4 liver enzymes improving. Ammonia level is 86. Patient has got accepted at [facility] to be evaluated by technology trainer. Pending bed availability 09/20 Patient today still more confused and sleepy although he answers some questions. He denies chest pain or abdominal pain or vomiting. He was able to eat his breakfast this morning Not sure about how many bowel movement he had overnight, also I asked the staff. Currently his lactulose dose increased today from 20 up to 30 gm twice daily. Will give him extra dose of 20 g this afternoon Abdomen is mildly distended He still getting D5 half-normal saline at 40 mL/h His hemoglobin stable at 10.8, platelet improved 122, INR 3.4 Sodium 130. Potassium 3.3 which has been replaced. Bilirubin is elevated 25. Liver enzymes stable. Still pending getting a bed at [facility] REVIEW OF SYSTEMS: CONSTITUTIONAL: No fever, no malaise,. CARDIOVASCULAR: No chest pain, no palpitations, no syncope. PULMONARY: No shortness of breath, no cough, GASTROINTESTINAL: As mentioned above NEUROLOGICAL: No headaches, no limb weakness, Active Medications Generic Name Dose Route Start Last Admin Trade Name Jaunq PRN Reason Stop Dose Admin Dapagliflozin 10 mg 09/16/24 09:30 09/20/24 08:45 Dapagliflozin Propanediol 10 Mg Tablet PO 10 mg DAILY BREN Administration Diazepam 5 mg 09/16/24 02:00 09/20/24 08:45 Diazepam 5 Mg/Ml 2 Ml Inj IVP 5 mg Q6H BREN Administration Ferrous Sulfate 325 mg 09/17/24 09:00 09/20/24 08:45 Ferrous Sulfate 325 Mg Tab PO 325 mg DAILY BREN Administration Folic Acid 1 mg 09/16/24 09:15 09/20/24 08:45 Folic Acid 1 Mg Tab PO 1 mg DAILY BREN Administration Dextrose/Sodium Chloride 1,000 mls @ 40 mls/hr 09/15/24 19:15 09/19/24 09:42 Dextrose 5%-1/2ns Iv Soln IV Not Given .Q24H BREN Lactulose 30 gm 09/19/24 21:00 09/20/24 08:45 Lactulose 20 Gm/30 Ml Cup PO 30 gm BID BREN Administration Lactulose 20 gm 09/20/24 14:00 Lactulose 20 Gm/30 Ml Cup PO 09/20/24 14:01 ONCE ONE Lorazepam 2 mg 09/15/24 16:53 Lorazepam 1 Mg Tab PO Q3HR PRN Ciwa 8 To 9 Lorazepam 2 mg 09/15/24 16:53 09/16/24 12:14 Lorazepam 1 Mg Tab PO 2 mg Q2HR PRN Administration Ciwa 10 or greater Lorazepam 1 mg 09/15/24 16:53 Lorazepam 1 Mg Tab PO Q4HR PRN Ciwa 6 To 7 Lorazepam 0.5 mg 09/15/24 16:53 Lorazepam 0.5 Mg Tab PO Q4HR PRN Ciwa 4 To 5 Lorazepam 1 mg 09/15/24 16:53 Lorazepam 1 Mg Tab PO Q1HR PRN Alcohol Withdrawal Lorazepam 1 mg 09/15/24 23:17 09/19/24 06:29 Lorazepam 1 Mg/0.5 Ml Vial IV 1 mg Q2HR PRN Administration CIWA 8 or 9 Lorazepam 1 mg 09/15/24 23:17 09/19/24 13:08 Lorazepam 1 Mg/0.5 Ml Vial IV 1 mg Q1HR PRN Administration CIWA 10 to 15 Magnesium Oxide 400 mg 09/15/24 21:00 09/20/24 08:45 Magnesium Oxide 400 Mg Tab PO 400 mg BID BREN Administration Metoprolol Tartrate 25 mg 09/17/24 09:00 09/20/24 08:45 Metoprolol Tartrate 25 Mg Tab PO 25 mg DAILY BREN Administration Miscellaneous Information 1 each 09/16/24 06:53 Potassium Replacement Protocol 1 Each Misc MISCELLANE DAILY PRN Per Protocol Protocol Morphine Sulfate 4 mg 09/15/24 19:14 09/20/24 08:46 Morphine Sulfate 4 Mg/Ml Syringe IV 4 mg Q4HR PRN Administration Severe Pain (Scale 7 to 10) Multivitamins 1 each 09/17/24 09:00 09/20/24 08:45 Multivitamins, Thera 1 Each Tab PO 1 each DAILY BREN Administration Naloxone HCl 0.2 mg 09/15/24 19:14 Naloxone 0.4 Mg/Ml 1 Ml Vial IV Q2M PRN Opioid Reversal Nicotine 1 patch 09/16/24 16:30 09/20/24 08:45 Nicotine 21mg/24hr Patch TRANSDERM 1 patch DAILY BREN Administration Ondansetron HCl 8 mg 09/18/24 11:14 09/19/24 18:20 Ondansetron 4 Mg/2 Ml Vial IVP 8 mg Q8HR PRN Administration Nausea And Vomiting Pantoprazole Sodium 40 mg 09/17/24 09:00 09/20/24 08:45 Pantoprazole 40 Mg Tablet PO 40 mg DAILY BREN Administration Rifaximin 550 mg 09/18/24 21:00 09/20/24 08:45 Rifaximin 550 Mg Tablet PO 10/18/24 20:59 550 mg BID BREN Administration Protocol Thiamine HCl 300 mg 09/16/24 16:00 09/20/24 08:45 Thiamine 100 Mg Tab PO 300 mg TID BREN Administration Objective - Vital Signs Vital signs: Vital Signs Temp 98.5 F 09/20/24 08:40 Pulse 89 09/20/24 08:40 Resp 20 09/20/24 08:40 BP 109/64 09/20/24 08:40 Pulse Ox 96 09/20/24 08:40 FiO2 Intake & Output 09/19/24 09/20/24 09/20/24 18:59 06:59 18:59 Intake Total 90 Output Total 1450 350 Balance -1360 -350 Weight 79 kg Intake: IV 10 Invasive Line 4 10 Intake, IV Titration 80 Amount Dextrose 5%-0.45% NaCl 1, 80 000 ml @ 40 mls/hr IV . Q24H [facility] Rx#:[id number] Output: Urine 1450 350 Other: Voiding Method External Catheter External Catheter External Catheter # Bowel Movements 1 1 - Exam -GENERAL: The patient is alert and oriented x3, not in any acute distress. Well developed, well nourished. Generally weak -HEENT: Pupils are round and equally reacting to light. EOMI. No scleral icterus. No conjunctival pallor. Normocephalic, atraumatic. No pharyngeal erythema. No thyromegaly. Yellow Sclera CARDIOVASCULAR: S1 and S2 present. No murmurs, rubs, or gallops. PULMONARY: Chest is clear to auscultation, no wheezing , no crackles. -ABDOMEN: Soft, nontender, mildly distended, normoactive bowel sounds. No palpable organomegaly. MUSCULOSKELETAL: No joint swelling or deformity. EXTREMITIES: No cyanosis, clubbing, or pedal edema. NEUROLOGICAL: Gross neurological examination did not reveal any focal deficits. SKIN: No rashes. no petechiae. - Labs CBC & Chem 7: 09/20/24 07:53 09/20/24 07:53 Labs: Abnormal Lab Results - Last 24 Hours (Table) 09/19/24 09/19/24 09/19/24 Range/Units 11:16 16:10 17:20 RBC (4.40-5.60) 10*6/uL Hgb (13.0-17.0) g/dL Hct (39.6-50.0) % MCV (80.0-97.0) fL MCH (27.0-32.0) pg Plt Count (140-440) 10*3/uL Immature Gran # (0.00-0.04) 10*3/uL PT (10.0-12.5) sec INR (<1.2) Sodium (137-145) mmol/L Potassium 3.3 L (3.5-5.1) mmol/L BUN (9-20) mg/dL Glucose (74-99) mg/dL POC Glucose (mg/dL) 184 H 131 H (70-110) mg/dL Calcium (8.4-10.2) mg/dL Total Bilirubin (0.2-1.3) mg/dL AST (17-59) U/L Alkaline Phosphatase (38-126) U/L Ammonia (<30) umol/L Albumin (3.5-5.0) g/dL 09/19/24 09/19/24 09/20/24 Range/Units 17:20 17:21 06:02 RBC 2.90 L (4.40-5.60) 10*6/uL Hgb 10.2 L (13.0-17.0) g/dL Hct 29.6 L (39.6-50.0) % MCV 102.1 H (80.0-97.0) fL MCH 35.2 H (27.0-32.0) pg Plt Count 104 L (140-440) 10*3/uL Immature Gran # (0.00-0.04) 10*3/uL PT (10.0-12.5) sec INR (<1.2) Sodium (137-145) mmol/L Potassium (3.5-5.1) mmol/L BUN (9-20) mg/dL Glucose (74-99) mg/dL POC Glucose (mg/dL) 116 H 127 H (70-110) mg/dL Calcium (8.4-10.2) mg/dL Total Bilirubin (0.2-1.3) mg/dL AST (17-59) U/L Alkaline Phosphatase (38-126) U/L Ammonia (<30) umol/L Albumin (3.5-5.0) g/dL 09/20/24 09/20/24 09/20/24 Range/Units 07:53 07:53 07:53 RBC 3.07 L (4.40-5.60) 10*6/uL Hgb 10.8 L (13.0-17.0) g/dL Hct 30.8 L (39.6-50.0) % MCV 100.3 H (80.0-97.0) fL MCH 35.2 H (27.0-32.0) pg Plt Count 122 L (140-440) 10*3/uL Immature Gran # 0.07 H (0.00-0.04) 10*3/uL PT 34.2 H (10.0-12.5) sec INR 3.4 H (<1.2) Sodium 133 L (137-145) mmol/L Potassium 3.3 L (3.5-5.1) mmol/L BUN <2 L (9-20) mg/dL Glucose 108 H (74-99) mg/dL POC Glucose (mg/dL) (70-110) mg/dL Calcium 7.5 L (8.4-10.2) mg/dL Total Bilirubin 25.9 H* (0.2-1.3) mg/dL AST 70 H (17-59) U/L Alkaline Phosphatase 356 H (38-126) U/L Ammonia (<30) umol/L Albumin 2.2 L (3.5-5.0) g/dL 09/20/24 Range/Units 07:53 RBC (4.40-5.60) 10*6/uL Hgb (13.0-17.0) g/dL Hct (39.6-50.0) % MCV (80.0-97.0) fL MCH (27.0-32.0) pg Plt Count (140-440) 10*3/uL Immature Gran # (0.00-0.04) 10*3/uL PT (10.0-12.5) sec INR (<1.2) Sodium (137-145) mmol/L Potassium (3.5-5.1) mmol/L BUN (9-20) mg/dL Glucose (74-99) mg/dL POC Glucose (mg/dL) (70-110) mg/dL Calcium (8.4-10.2) mg/dL Total Bilirubin (0.2-1.3) mg/dL AST (17-59) U/L Alkaline Phosphatase (38-126) U/L Ammonia 65 H (<30) umol/L Albumin (3.5-5.0) g/dL Assessment and Plan Assessment: Acute liver failure hepatic encephalopathy Alcoholic liver cirrhosis, decompensated with mild ascites Alcohol use disorder Coagulopathy High ammonia Electrolyte abnormality with hyponatremia, hypokalemia and hypomagnesemia. Plan: Got accepted by [facility] pending bed availability Continue with D5 half-normal saline at 80 mL Continue with CIWA protocol thiamine GI team consulted appreciated, continue with comfort measures Monitor ammonia Continue with lactulose, lower dose to 30 g twice daily Continue with Aldactone and Lasix add metoprolol Continue with pain management Labs and medication were reviewed.. Continue same treatment. Continue with symptomatic treatment. Resume home medication. Monitor labs and vitals. DVT and GI prophylaxis. Further recommendations as per clinical course of the patient DVT prophylaxis:no Subcutaneous heparin, patient has coagulopathy GI Prophylaxis: Protonix Prognosis is guarded
[2024-09-20 10:54] LABS: Band Neutrophils % 1 %; Lymphocytes # (M) 1.36 k/uL (1.0-4.8); Monocytes # (M) 0.78 k/uL (0-1.0); Neutrophils # (M) 4.34 k/uL (1.3-7.7); Neutrophils % (M) 66 %; Nucleated Red Blood Cells 0 /100 WBC (0-0); Total Cells Counted 100
[2024-09-20 10:55] LABS: Hypochromasia (M) Present
[2024-09-20 10:56] LABS: Target Cells Present
[2024-09-20 10:57] LABS: Anisocytosis (M) Present
[2024-09-20 11:18] LABS: Glucose,Whole Blood 122 mg/dL (70-110)
[2024-09-20] MEDS: MIDODRINE 5 MG TAB PO SCH (13:07)
[2024-09-20] MEDS: POTASSIUM BICARBONATE/CIT AC 20 MEQ TABLET.EFF PO SCH (13:07)
[2024-09-20] MEDS: SODIUM CHLORIDE 0.9% 500 ML 500 ML IV ONE (13:09)
[2024-09-20] MEDS: LACTULOSE 20 GM/30 ML CUP PO ONE (13:09)
[2024-09-20 13:18] VITALS: BMI 28.0
[2024-09-20 16:24] LABS: Glucose,Whole Blood 132 mg/dL (70-110)
--- NOTE | 2024-09-20 16:42 | P.PN ---
Subjective Progress Note Date: 09/20/24 Principal diagnosis: Hepatic encephalopathy, liver cirrhosis This is a 34-year-old male with a history of heavy alcohol abuse with liver cirrhosis who had presented to the emergency department with reported nausea vomiting and diarrhea. Patient has had multiple emergency room visits for intoxication and withdrawal symptoms. History of liver cirrhosis with previous paracentesis. Last paracentesis was May 14, 20202023 with about 4.1 L removed. His last couple ultrasound in June and July showed no significant fluid and paracentesis were canceled. He is maintained on spironolactone 50 mg daily and Lasix 40 mg daily. He denies any nausea or vomiting or abdominal pain at this time. Patient is significantly jaundiced. He was noted to have elevated LFTs and significant elevation in total bilirubin. Gastroenterology was consulted for acute alcohol hepatitis. Patient states he is continues to drink about a pint a day. Patient reports that he broke his back in May and he has been in pain and has been drinking more. States he plans to go to rehab at some point. States he started noticing his skin getting yellow 2 to 3 days ago. Today's labs WBC 7.1 hemoglobin 10.7 hematocrit 34 platelet count 68,000 sodium 129 potassium 3.2 BUN less than 2 creatinine 0.5 total bilirubin 19.6 AST 180 ALT 30 alkaline phosphatase 449 September 18, 2024 Patient seen and examined today as a follow-up. He still remains slow, difficult to understand at times, severely jaundiced. He denies any abdominal pain, nausea or vomiting at this time. His mom is here at the bedside. Repeat INR today continues to climb to 4.8 despite given vitamin K 10 mg orally yeste rday. Total bilirubin also continues to increase with a bilirubin of 25.2 today, and ammonia level increased to 111. Patient states he has had 4 bowel movements today. Patient appears more encephalopathic today. September 19, 2024 Patient seen and examined today as a follow-up. Mentation and hepatic encephalopathy seems to be worsening. Patient is now requiring a sitter at the bedside. He has pulled out multiple IVs. He is becoming unsteady on his feet. He is a remains extremely jaundiced. Patient has been accepted as a transfer to [facility], waiting on a bed. Today's labs WBC 7.8 hemoglobin 9.3 platelet count 102,000 INR 3.9 sodium 130 potassium 2.7 BUN less than 2 creatinine 0.6 total bilirubin 24.4 AST 65 ALT 20 alkaline phosphatase 344 ammonia 86. Apparently patient had also been refusing his lactulose yesterday evening. He did take his lactulose this morning. Patient had 4 bowel movements yesterday. 05/22/2025 Patient seen and examined today as a follow-up. Not much change in patient's clinical picture. Still extremely jaundiced and encephalopathic. Patient's mother is at the bedside. Again discussion had with patient and mother that patient is very ill, poor prognosis and recommending transfer to [facility] however awaiting bed at this time. WBC 6.4 hemoglobin 10 platelet count 122,000 INR 3.4 sodium 133 potassium 3.3 total bilirubin 25.9 AST 70 ALT 19 alkaline phosphatase 356 ammonia level 65 Objective - Vital Signs Vital signs: Vital Signs Temp 98.2 F 09/20/24 12:14 Pulse 86 09/20/24 12:14 Resp 20 09/20/24 12:14 BP 85/52 09/20/24 12:14 Pulse Ox 96 09/20/24 12:14 FiO2 Intake & Output 09/19/24 09/20/24 09/20/24 18:59 06:59 18:59 Intake Total 90 180 Output Total 1450 350 Balance -1360 -350 180 Weight 79 kg Intake: IV 10 Invasive Line 4 10 Intake, IV Titration 80 Amount Dextrose 5%-0.45% NaCl 1, 80 000 ml @ 40 mls/hr IV . Q24H [facility] Rx#:[id number] Oral 180 Output: Urine 1450 350 Other: Voiding Method External Catheter External Catheter External Catheter # Voids 1 # Bowel Movements 1 1 - Exam General appearance: The patient is alert, oriented, appears tired/withdrawn, appears in no acute distress. HET: Head is normocephalic and atraumatic. Conjunctiva pink. Sclera deeply icteric. Neck: Supple without lymphadenopathy. Abdomen: Soft, nontender, nondistended. Extremities: Normal skin color and turgor. No pedal edema Skin: No rashes, severe jaundice. Neurological: Patient is alert and oriented to self. Patient is somewhat obtunded, remains confused, speech is difficult to understand. . - Labs CBC & Chem 7: 09/20/24 07:53 09/20/24 07:53 Labs: Abnormal Lab Results - Last 24 Hours (Table) 09/19/24 09/19/24 09/19/24 Range/Units 16:10 17:20 17:20 RBC 2.90 L (4.40-5.60) 10*6/uL Hgb 10.2 L (13.0-17.0) g/dL Hct 29.6 L (39.6-50.0) % MCV 102.1 H (80.0-97.0) fL MCH 35.2 H (27.0-32.0) pg Plt Count 104 L (140-440) 10*3/uL Immature Gran # (0.00-0.04) 10*3/uL PT (10.0-12.5) sec INR (<1.2) Sodium (137-145) mmol/L Potassium 3.3 L (3.5-5.1) mmol/L BUN (9-20) mg/dL Glucose (74-99) mg/dL POC Glucose (mg/dL) 131 H (70-110) mg/dL Calcium (8.4-10.2) mg/dL Total Bilirubin (0.2-1.3) mg/dL AST (17-59) U/L Alkaline Phosphatase (38-126) U/L Ammonia (<30) umol/L Albumin (3.5-5.0) g/dL 09/19/24 09/20/24 09/20/24 Range/Units 17:21 06:02 07:53 RBC (4.40-5.60) 10*6/uL Hgb (13.0-17.0) g/dL Hct (39.6-50.0) % MCV (80.0-97.0) fL MCH (27.0-32.0) pg Plt Count (140-440) 10*3/uL Immature Gran # (0.00-0.04) 10*3/uL PT 34.2 H (10.0-12.5) sec INR 3.4 H (<1.2) Sodium (137-145) mmol/L Potassium (3.5-5.1) mmol/L BUN (9-20) mg/dL Glucose (74-99) mg/dL POC Glucose (mg/dL) 116 H 127 H (70-110) mg/dL Calcium (8.4-10.2) mg/dL Total Bilirubin (0.2-1.3) mg/dL AST (17-59) U/L Alkaline Phosphatase (38-126) U/L Ammonia (<30) umol/L Albumin (3.5-5.0) g/dL 09/20/24 09/20/24 09/20/24 Range/Units 07:53 07:53 07:53 RBC 3.07 L (4.40-5.60) 10*6/uL Hgb 10.8 L (13.0-17.0) g/dL Hct 30.8 L (39.6-50.0) % MCV 100.3 H (80.0-97.0) fL MCH 35.2 H (27.0-32.0) pg Plt Count 122 L (140-440) 10*3/uL Immature Gran # 0.07 H (0.00-0.04) 10*3/uL PT (10.0-12.5) sec INR (<1.2) Sodium 133 L (137-145) mmol/L Potassium 3.3 L (3.5-5.1) mmol/L BUN <2 L (9-20) mg/dL Glucose 108 H (74-99) mg/dL POC Glucose (mg/dL) (70-110) mg/dL Calcium 7.5 L (8.4-10.2) mg/dL Total Bilirubin 25.9 H* (0.2-1.3) mg/dL AST 70 H (17-59) U/L Alkaline Phosphatase 356 H (38-126) U/L Ammonia 65 H (<30) umol/L Albumin 2.2 L (3.5-5.0) g/dL 09/20/24 Range/Units 11:16 RBC (4.40-5.60) 10*6/uL Hgb (13.0-17.0) g/dL Hct (39.6-50.0) % MCV (80.0-97.0) fL MCH (27.0-32.0) pg Plt Count (140-440) 10*3/uL Immature Gran # (0.00-0.04) 10*3/uL PT (10.0-12.5) sec INR (<1.2) Sodium (137-145) mmol/L Potassium (3.5-5.1) mmol/L BUN (9-20) mg/dL Glucose (74-99) mg/dL POC Glucose (mg/dL) 122 H (70-110) mg/dL Calcium (8.4-10.2) mg/dL Total Bilirubin (0.2-1.3) mg/dL AST (17-59) U/L Alkaline Phosphatase (38-126) U/L Ammonia (<30) umol/L Albumin (3.5-5.0) g/dL Assessment and Plan (1) Liver failure Narrative/Plan: 34-year-old male with longstanding history of alcohol abuse who continues to drink and was 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 Patient continues to drink a pint of alcohol a day. Has liver cirrhosis with ascites. Last paracentesis in May 2024. He maintains on spironolactone and Lasix. Patient came in with nausea and vomiting he was significantly jaundice. Total bilirubin at 19.6 AST 180 ALT 30 alkaline phosphatase 449, INR initially 2.9 with a repeat today of 4.0. Ammonia level ordered which was elevated at 143. Will start patient on lactulose, give vitamin K for coagulopathy secondary to underlying liver disease. MELD score 35, poor prognosis. This was discussed with patient with his mother who was at the bedside that he has a very poor prognosis and advanced liver disease causing liver failure. Discussed importance of alcohol abstinence. Recommend transferring patient to tertiary center for advanced liver failure. Current Visit: Yes Status: Acute Code(s): K72.90 - HEPATIC FAILURE, UNSPECIFIED WITHOUT COMA SNOMED Code(s): 58046922 (2) Acute alcoholic hepatitis Current Visit: Yes Status: Acute Code(s): K70.10 - ALCOHOLIC HEPATITIS WITHOUT ASCITES SNOMED Code(s): 7129437 (3) Umbilical hernia Current Visit: Yes Status: Acute Code(s): K42.9 - UMBILICAL HERNIA WITHOUT OBSTRUCTION OR GANGRENE SNOMED Code(s): 725867578 (4) Ascites Current Visit: Yes Status: Acute Code(s): R18.8 - OTHER ASCITES SNOMED Code(s): 471480920 (5) Alcohol abuse Current Visit: No Status: Acute Code(s): F10.10 - ALCOHOL ABUSE, UNCOMPLICATED SNOMED Code(s): 91133315 (6) Alcoholic intoxication Current Visit: No Status: Acute Code(s): F10.929 - ALCOHOL USE, UNSPECIFIED WITH INTOXICATION, UNSPECIFIED SNOMED Code(s): 25393514 (7) Hyperammonemia Current Visit: No Status: Acute Code(s): E72.20 - DISORDER OF UREA CYCLE METABOLISM, UNSPECIFIED SNOMED Code(s): 0009878 (8) Hypokalemia Current Visit: Yes Status: Acute Code(s): E87.6 - HYPOKALEMIA SNOMED Code(s): 61468236 (9) Hyponatremia Current Visit: No Status: Acute Code(s): E87.1 - HYPO-OSMOLALITY AND HYPONATREMIA SNOMED Code(s): 50640617 (10) Coagulopathy Narrative/Plan: Secondary to underlying liver disease. Patient has been given 3 doses of vitamin K with some improvement in INR Current Visit: Yes Status: Acute Code(s): D68.9 - COAGULATION DEFECT, UNSPEC IFIED SNOMED Code(s): 12851155 (11) Hepatic encephalopathy Narrative/Plan: Worsening hepatic encephalopathy despite adding Xifaxan. Continue with lactulose as ordered, titrate to have 3-4 bowel movements daily. Current Visit: Yes Status: Acute Code(s): K76.82 - HEPATIC ENCEPHALOPATHY SNOMED Code(s): 52893243 Plan: 1. Continue symptomatic and supportive care 2. Daily CBC, CMP, INR, ammonia level 3. Supplement electrolytes per protocol 4. Discontinue spironolactone and Lasix for now secondary to hyponatremia and hypokalemia 5. Patient may have low-sodium diet 6. Continue Xifaxan and lactulose as ordered. Titrate lactulose for patient to have 3-4 bowel movements daily 7. Avoid hepatotoxic medications 8. Discussed with patient importance of alcohol abstinence. MELD score 35, patient with poor prognosis especially in setting of continued alcohol consumption. 9.. Recommend transfer to tertiary center.patient has been accepted to [facility] however bed is not available. 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 Again patient's prognosis and discussed with patient and mother who is at the bedside today. Still agreeable with transfer to tertiary center. Thank you for this consultation, we will continue to follow. Dr. Brenda Ross I agree with the dictator's note, documented as a scribe by Omayra Duffy.
[2024-09-20] MEDS: traMADol 50 MG TAB PO PRN (17:11)
[2024-09-20 20:25] LABS: Glucose,Whole Blood 96 mg/dL (70-110)
[2024-09-21 05:52] LABS: Glucose,Whole Blood 85 mg/dL (70-110)
[2024-09-21 07:14] LABS: HCT 31.4 % (39.6-50.0); HGB 11.2 g/dL (13.0-17.0); MCH 35.7 pg (27.0-32.0); MCHC 35.7 g/dL (32.0-37.0); Mean Platelet Volume 10.5 fL (9.5-12.2); Platelet Count 144 10*3/uL (140-440); RBC 3.14 10*6/uL (4.40-5.60); RDW 23.2 % (11.5-14.5); WBC 8.55 10*3/uL (4.50-10.00)
[2024-09-21 07:35] LABS: ALT 19 U/L (4-49); AST 79 U/L (17-59); African American GFR (CKD) >90 (>60 ml/min/1.73 sqM); Albumin 2.4 g/dL (3.5-5.0); Anion Gap 6 mmol/L; Bilirubin, Conjugated 18.6 mg/dL (0.0-0.3); Bilirubin,Unconjugated 2.5 mg/dL (0.0-1.1); Blood Urea Nitrogen <2 mg/dL (9-20); Calcium 8.1 mg/dL (8.4-10.2); Carbon Dioxide 20 mmol/L (22-30); Chloride 105 mmol/L (98-107); Glucose 94 mg/dL (74-99); Magnesium 1.9 mg/dL (1.6-2.3); Non-African American GFR(CKD) >90 (>60 ml/min/1.73 sqM); Sodium 131 mmol/L (137-145)
[2024-09-21 07:43] LABS: Bilirubin, Delta 5.7 mg/dL (0.0-0.2)
[2024-09-21 07:51] LABS: Alkaline Phosphatase 360 U/L (38-126); Total Bilirubin 26.8 mg/dL (0.2-1.3); Total Protein 7.1 g/dL (6.3-8.2)
[2024-09-21 08:12] LABS: INR 3.2 (<1.2); Prothrombin Time 32.2 sec (10.0-12.5)
[2024-09-21 08:58] LABS: Band Neutrophils % 1 %; Basophils # (M) 0.09 k/uL (0-0.2); Eosinophils # (M) 0.09 k/uL (0-0.7); Lymphocytes # (M) 2.82 k/uL (1.0-4.8); Monocytes # (M) 0.94 k/uL (0-1.0); Neutrophils # (M) 4.61 k/uL (1.3-7.7); Neutrophils % (M) 53 %; Nucleated Red Blood Cells 0 /100 WBC (0-0); Total Cells Counted 100
[2024-09-21 11:11] LABS: Glucose,Whole Blood 127 mg/dL (70-110)
--- NOTE | 2024-09-21 13:04 | P.PN ---
Subjective Progress Note Date: 09/21/24 Principal diagnosis: Hepatic encephalopathy, liver cirrhosis This is a 34-year-old male with a history of heavy alcohol abuse with liver cirrhosis who had presented to the emergency department with reported nausea vomiting and diarrhea. Patient has had multiple emergency room visits for intoxication and withdrawal symptoms. History of liver cirrhosis with previous paracentesis. Last paracentesis was May 14, 20202023 with about 4.1 L removed. His last couple ultrasound in June and July showed no significant fluid and paracentesis were canceled. He is maintained on spironolactone 50 mg daily and Lasix 40 mg daily. He denies any nausea or vomiting or abdominal pain at this time. Patient is significantly jaundiced. He was noted to have elevated LFTs and significant elevation in total bilirubin. Gastroenterology was consulted for acute alcohol hepatitis. Patient states he is continues to drink about a pint a day. Patient reports that he broke his back in May and he has been in pain and has been drinking more. States he plans to go to rehab at some point. States he started noticing his skin getting yellow 2 to 3 days ago. Today's labs WBC 7.1 hemoglobin 10.7 hematocrit 34 platelet count 68,000 sodium 129 potassium 3.2 BUN less than 2 creatinine 0.5 total bilirubin 19.6 AST 180 ALT 30 alkaline phosphatase 449 September 18, 2024 Patient seen and examined today as a follow-up. He still remains slow, difficult to understand at times, severely jaundiced. He denies any abdominal pain, nausea or vomiting at this time. His mom is here at the bedside. Repeat INR today continues to climb to 4.8 despite given vitamin K 10 mg orally yeste rday. Total bilirubin also continues to increase with a bilirubin of 25.2 today, and ammonia level increased to 111. Patient states he has had 4 bowel movements today. Patient appears more encephalopathic today. September 19, 2024 Patient seen and examined today as a follow-up. Mentation and hepatic encephalopathy seems to be worsening. Patient is now requiring a sitter at the bedside. He has pulled out multiple IVs. He is becoming unsteady on his feet. He is a remains extremely jaundiced. Patient has been accepted as a transfer to [facility], waiting on a bed. Today's labs WBC 7.8 hemoglobin 9.3 platelet count 102,000 INR 3.9 sodium 130 potassium 2.7 BUN less than 2 creatinine 0.6 total bilirubin 24.4 AST 65 ALT 20 alkaline phosphatase 344 ammonia 86. Apparently patient had also been refusing his lactulose yesterday evening. He did take his lactulose this morning. Patient had 4 bowel movements yesterday. 09/20/2024 Patient seen and examined today as a follow-up. Not much change in patient's clinical picture. Still extremely jaundiced and encephalopathic. Patient's mother is at the bedside. Again discussion had with patient and mother that patient is very ill, poor prognosis and recommending transfer to [facility] however awaiting bed at this time. WBC 6.4 hemoglobin 10 platelet count 122,000 INR 3.4 sodium 133 potassium 3.3 total bilirubin 25.9 AST 70 ALT 19 alkaline phosphatase 356 ammonia level 65 September 21, 2024 Patient seen and examined today as a follow-up. Patient is sitting up in bed eating breakfast. He appears more alert. He still is requiring a sitter at the bedside. 5 hemoglobin 11.2 hematocrit 31 platelet count 144,000 INR 3.2 sodium 131 potassium 4.0 BUN less than 2 creatinine 0.7 total bilirubin 26.8 AST 79 ALT 19 alkaline phosphatase 360 ammonia 85 Objective - Vital Signs Vital signs: Vital Signs Temp 97.7 F 09/21/24 03:00 Pulse 77 09/21/24 03:00 Resp 14 09/21/24 03:00 BP 97/59 09/21/24 03:00 Pulse Ox 97 09/21/24 03:00 FiO2 Intake & Output 09/20/24 09/21/24 09/21/24 18:59 06:59 18:59 Intake Total 360 Output Total 650 150 Balance -290 -150 Weight 79 kg 74.5 kg Intake: Oral 360 Output: Urine 650 150 Other: Voiding Method External Catheter External Catheter # Voids 1 # Bowel Movements 1 1 - Exam General appearance: The patient is alert, patient appears more alert and less confused today. Appears in no acute distress. HET: Head is normocephalic and atraumatic. Conjunctiva pink. Sclera deeply icteric. Neck: Supple without lymphadenopathy. Abdomen: Soft, nontender, nondistended. Extremities: Normal skin color and turgor. No pedal edema Skin: No rashes, severe jaundice. Neurological: Patient is alert and oriented to self. Sitting up and more alert today.. - Labs CBC & Chem 7: 09/21/24 06:23 09/21/24 06:23 Labs: Abnormal Lab Results - Last 24 Hours (Table) 09/20/24 09/20/24 09/20/24 Range/Units 07:53 07:53 07:53 RBC 3.07 L (4.40-5.60) 10*6/uL Hgb 10.8 L (13.0-17.0) g/dL Hct 30.8 L (39.6-50.0) % MCV 100.3 H (80.0-97.0) fL MCH 35.2 H (27.0-32.0) pg Plt Count 122 L (140-440) 10*3/uL Immature Gran # 0.07 H (0.00-0.04) 10*3/uL PT 34.2 H (10.0-12.5) sec INR 3.4 H (<1.2) Sodium 133 L (137-145) mmol/L Potassium 3.3 L (3.5-5.1) mmol/L BUN <2 L (9-20) mg/dL Glucose 108 H (74-99) mg/dL POC Glucose (mg/dL) (70-110) mg/dL Calcium 7.5 L (8.4-10.2) mg/dL Total Bilirubin 25.9 H* (0.2-1.3) mg/dL AST 70 H (17-59) U/L Alkaline Phosphatase 356 H (38-126) U/L Ammonia (<30) umol/L Albumin 2.2 L (3.5-5.0) g/dL Vitamin B12 2028.0 H (200.0-944.0) pg/mL 09/20/24 09/20/24 09/20/24 Range/Units 07:53 11:16 16:22 RBC (4.40-5.60) 10*6/uL Hgb (13.0-17.0) g/dL Hct (39.6-50.0) % MCV (80.0-97.0) fL MCH (27.0-32.0) pg Plt Count (140-440) 10*3/uL Immature Gran # (0.00-0.04) 10*3/uL PT (10.0-12.5) sec INR (<1.2) Sodium (137-145) mmol/L Potassium (3.5-5.1) mmol/L BUN (9-20) mg/dL Glucose (74-99) mg/dL POC Glucose (mg/dL) 122 H 132 H (70-110) mg/dL Calcium (8.4-10.2) mg/dL Total Bilirubin (0.2-1.3) mg/dL AST (17-59) U/L Alkaline Phosphatase (38-126) U/L Ammonia 65 H (<30) umol/L Albumin (3.5-5.0) g/dL Vitamin B12 (200.0-944.0) pg/mL Assessment and Plan (1) Liver failure Narrative/Plan: 34-year-old male with longstanding history of alcohol abuse who continues to drink and was 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 Patient continues to drink a pint of alcohol a day. Has liver cirrhosis with ascites. Last paracentesis in May 2024. He maintains on spironolactone and Lasix. Patient came in with nausea and vomiting he was significantly jaundice. Total bilirubin at 19.6 AST 180 ALT 30 alkaline phosphatase 449, INR initially 2.9 with a repeat today of 4.0. Ammonia level ordered which was elevated at 143. Will start patient on lactulose, give vitamin K for coagulopathy secondary to underlying liver disease. MELD score 35, poor prognosis. This was discussed with patient with his mother who was at the bedside that he has a very poor pro gnosis and advanced liver disease causing liver failure. Discussed importance of alcohol abstinence. Recommend transferring patient to tertiary center for advanced liver failure. Current Visit: Yes Status: Acute Code(s): K72.90 - HEPATIC FAILURE, UNSPECIFIED WITHOUT COMA SNOMED Code(s): 08306568 (2) Acute alcoholic hepatitis Current Visit: Yes Status: Acute Code(s): K70.10 - ALCOHOLIC HEPATITIS WITHOUT ASCITES SNOMED Code(s): 7114018 (3) Umbilical hernia Current Visit: Yes Status: Acute Code(s): K42.9 - UMBILICAL HERNIA WITHOUT OBSTRUCTION OR GANGRENE SNOMED Code(s): 294918248 (4) Ascites Current Visit: Yes Status: Acute Code(s): R18.8 - OTHER ASCITES SNOMED Code(s): 615831561 (5) Alcohol abuse Current Visit: No Status: Acute Code(s): F10.10 - ALCOHOL ABUSE, UNCOMPLICATED SNOMED Code(s): 70641406 (6) Alcoholic intoxication Current Visit: No Status: Acute Code(s): F10.929 - ALCOHOL USE, UNSPECIFIED WITH INTOXICATION, UNSPECIFIED SNOMED Code(s): 23950163 (7) Hyperammonemia Current Visit: No Status: Acute Code(s): E72.20 - DISORDER OF UREA CYCLE METABOLISM, UNSPECIFIED SNOMED Code(s): 6295577 (8) Hypokalemia Current Visit: Yes Status: Acute Code(s): E87.6 - HYPOKALEMIA SNOMED Code(s): 29365374 (9) Hyponatremia Current Visit: No Status: Acute Code(s): E87.1 - HYPO-OSMOLALITY AND HYPONATREMIA SNOMED Code(s): 36646435 (10) Coagulopathy Narrative/Plan: Secondary to underlying liver disease. Patient has been given 3 doses of vitamin K with some improvement in INR Current Visit: Yes Status: Acute Code(s): D68.9 - COAGULATION DEFECT, UNSPECIFIED SNOMED Code(s): 04759797 (11) Hepatic encephalopathy Narrative/Plan: Worsening hepatic encephalopathy despite adding Xifaxan. Continue with la ctulose as ordered, titrate to have 3-4 bowel movements daily. Current Visit: Yes Status: Acute Code(s): K76.82 - HEPATIC ENCEPHALOPATHY SNOMED Code(s): 38253715 Plan: 1. Continue symptomatic and supportive care 2. Continue to hold spironolactone and Lasix for now however if electrolytes continue to stabilize may resume. 3. Low-sodium diet 4. Continue Xifaxan and lactulose as ordered. Titrate lactulose for patient to have 3-4 bowel movements daily 5. Avoid hepatotoxic medications. MELD score 35, patient with poor prognosis. Recommend transfer to tertiary center.patient has been accepted to [facility] however bed is not available. Patient may be transferred to any tertiary center with advanced box maker wood director of pulmonary unit. Again patient's prognosis was discussed with patient and mother. Still agreeable with transfer to tertiary center. Thank you for this consultation, gastroenterology will sign off at this time. There will be no further gastroenterology services available through next week. Dr. Brenda Ross I agree with the dictator's note, documented as a scribe by Omayra Duffy.
[2024-09-21] MEDS: LORazepam 1 MG TAB PO PRN (16:11)
[2024-09-21 16:21] LABS: Glucose,Whole Blood 128 mg/dL (70-110)
[2024-09-21 20:28] LABS: Glucose,Whole Blood 131 mg/dL (70-110)
[2024-09-21] MEDS: LORazepam 0.5 MG TAB PO PRN (22:14)
[2024-09-22 05:58] LABS: Glucose,Whole Blood 90 mg/dL (70-110)
[2024-09-22 11:26] LABS: Glucose,Whole Blood 110 mg/dL (70-110)
[2024-09-22 12:00] LABS: HCT 32.1 % (39.6-50.0); HGB 11.1 g/dL (13.0-17.0); MCH 35.6 pg (27.0-32.0); MCHC 34.6 g/dL (32.0-37.0); MCV 102.9 fL (80.0-97.0); Mean Platelet Volume 10.6 fL (9.5-12.2); Platelet Count 172 10*3/uL (140-440); RBC 3.12 10*6/uL (4.40-5.60); RDW 23.9 % (11.5-14.5); WBC 9.95 10*3/uL (4.50-10.00)
[2024-09-22 12:29] LABS: ALT 19 U/L (4-49); AST 85 U/L (17-59); African American GFR (CKD) >90 (>60 ml/min/1.73 sqM); Albumin 2.4 g/dL (3.5-5.0); Anion Gap 7 mmol/L; Bilirubin,Unconjugated 2.5 mg/dL (0.0-1.1); Blood Urea Nitrogen 3 mg/dL (9-20); Calcium 8.5 mg/dL (8.4-10.2); Carbon Dioxide 19 mmol/L (22-30); Chloride 105 mmol/L (98-107); Glucose 115 mg/dL (74-99); Non-African American GFR(CKD) >90 (>60 ml/min/1.73 sqM); Potassium 3.9 mmol/L (3.5-5.1); Sodium 131 mmol/L (137-145)
[2024-09-22 12:35] LABS: Bilirubin, Delta 6.8 mg/dL (0.0-0.2)
[2024-09-22 12:39] LABS: Alkaline Phosphatase 330 U/L (38-126); Total Bilirubin 27.3 mg/dL (0.2-1.3); Total Protein 7.1 g/dL (6.3-8.2)
[2024-09-22 12:58] LABS: Lymphocytes # (M) 2.49 k/uL (1.0-4.8); Monocytes # (M) 1.39 k/uL (0-1.0); Neutrophils # (M) 6.07 k/uL (1.3-7.7); Neutrophils % (M) 61 %; Nucleated Red Blood Cells 0 /100 WBC (0-0); Total Cells Counted 200
[2024-09-22 16:34] LABS: Glucose,Whole Blood 98 mg/dL (70-110)
--- NOTE | 2024-09-22 18:00 | P.PN ---
Subjective Progress Note Date: 09/21/24 34-year-old gentleman past medical history significant for alcohol induced liver cirrhosis who presented to the ER because of nausea and vomiting. Patient has been seen in the past with similar complaints. Patient stated he has been drinking excessively for the last few weeks, administering around 1 pint per day. Patient has been complaining of nausea and vomiting. Denies abdominal pain. There is no complaint of fever or chills. Patient denies any orthopnea or PND. There is no chest pain or shortness of breath. Because of the symptoms, patient presented to the ER Initial lab work done in the ER showed WBC 9.5, hemoglobin 7.6, platelet count 105, sodium 137, potassium 2.6, BUN 2, creatinine 0.60, lactate 5.2 bilirubin 18.2 AST 247, ALT 39, ammonia 61, protein 9, albumin 3.4 UA negative for any infection Urine drug screen positive for marijuana EKG done in the ER showed heart rate of 115, no ST segment elevation or depression seen, no T-wave inversions seen. Patient admitted to internal medicine service 09/21/2024 Patient seen and examined in room with family at bedside. Patient is resting comfortably in bed. He appears more alert. He still is requiring a sitter at the bedside. Vital signs are reviewed stable with temperature of 97.7, pulse 77, respiration 14 and blood pressure of 97/59 Blood work reveals WBC of 8.55, hemoglobin 11.2 hematocrit 31 platelet count 144,000 INR 3.2 sodium 131 potassium 4.0 BUN less than 2 creatinine 0.7 total bilirubin 26.8 AST 79 ALT 19 alkaline phosphatase 360 ammonia 85 - All of patient's and family's questions were answered at bedside; await bed availability at [facility] for transfer Objective - Vital Signs Vital signs: Vital Signs Temp 98.7 F 09/21/24 11:15 Pulse 87 09/21/24 11:15 Resp 16 09/21/24 11:15 BP 96/60 09/21/24 11:15 Pulse Ox 95 09/21/24 11:15 FiO2 Intake & Output 09/20/24 09/21/24 09/21/24 18:59 06:59 18:59 Intake Total 360 180 Output Total 650 150 350 Balance -290 -150 -170 Weight 79 kg 74.5 kg Intake: Oral 360 180 Output: Urine 650 150 350 Other: Voiding Method External Catheter External Catheter External Catheter # Voids 1 # Bowel Movements 1 1 - Exam -GENERAL: The patient is alert and oriented x3, not in any acute distress. Well developed, well nourished. Generally weak -HEENT: Pupils are round and equally reacting to light. EOMI. No scleral icterus. No conjunctival pallor. Normocephalic, atraumatic. No pharyngeal erythema. No thyromegaly. Yellow Sclera CARDIOVASCULAR: S1 and S2 present. No murmurs, rubs, or gallops. PULMONARY: Chest is clear to auscultation, no wheezing , no crackles. -ABDOMEN: Soft, nontender, mildly distended, normoactive bowel sounds. No palpable organomegaly. MUSCULOSKELETAL: No joint swelling or deformity. EXTREMITIES: No cyanosis, clubbing, or pedal edema. NEUROLOGICAL: Gross neurological examination did not reveal any focal deficits. SKIN: No rashes. no petechiae. - Labs CBC & Chem 7: 09/22/24 11:34 09/22/24 11:34 Labs: Abnormal Lab Results - Last 24 Hours (Table) 09/20/24 09/20/24 09/21/24 Range/Units 07:53 16:22 06:23 RBC 3.14 L (4.40-5.60) 10*6/uL Hgb 11.2 L (13.0-17.0) g/dL Hct 31.4 L (39.6-50.0) % MCV 100.0 H (80.0-97.0) fL MCH 35.7 H (27.0-32.0) pg Immature Gran # 0.22 H (0.00-0.04) 10*3/uL PT (10.0-12.5) sec INR (<1.2) Sodium (137-145) mmol/L Carbon Dioxide (22-30) mmol/L BUN (9-20) mg/dL POC Glucose (mg/dL) 132 H (70-110) mg/dL Calcium (8.4-10.2) mg/dL Total Bilirubin (0.2-1.3) mg/dL Conjugated Bilirubin (0.0-0.3) mg/dL Unconjugated Bilirubin (0.0-1.1) mg/dL Delta Bilirubin (0.0-0.2) mg/dL AST (17-59) U/L Alkaline Phosphatase (38-126) U/L Ammonia (<30) umol/L Albumin (3.5-5.0) g/dL Vitamin B12 2028.0 H (200.0-944.0) pg/mL 09/21/24 09/21/24 09/21/24 Range/Units 06:23 06:23 06:23 RBC (4.40-5.60) 10*6/uL Hgb (13.0-17.0) g/dL Hct (39.6-50.0) % MCV (80.0-97.0) fL MCH (27.0-32.0) pg Immature Gran # (0.00-0.04) 10*3/uL PT 32.2 H (10.0-12.5) sec INR 3.2 H (<1.2) Sodium 131 L (137-145) mmol/L Carbon Dioxide 20 L (22-30) mmol/L BUN <2 L (9-20) mg/dL POC Glucose (mg/dL) (70-110) mg/dL Calcium 8.1 L (8.4-10.2) mg/dL Total Bilirubin 26.8 H* (0.2-1.3) mg/dL Conjugated Bilirubin 18.6 H (0.0-0.3) mg/dL Unconjugated Bilirubin 2.5 H (0.0-1.1) mg/dL Delta Bilirubin 5.7 H (0.0-0.2) mg/dL AST 79 H (17-59) U/L Alkaline Phosphatase 360 H (38-126) U/L Ammonia 85 H (<30) umol/L Albumin 2.4 L (3.5-5.0) g/dL Vitamin B12 (200.0-944.0) pg/mL 09/21/24 Range/Units 11:10 RBC (4.40-5.60) 10*6/uL Hgb (13.0-17.0) g/dL Hct (39.6-50.0) % MCV (80.0-97.0) fL MCH (27.0-32.0) pg Immature Gran # (0.00-0.04) 10*3/uL PT (10.0-12.5) sec INR (<1.2) Sodium (137-145) mmol/L Carbon Dioxide (22-30) mmol/L BUN (9-20) mg/dL POC Glucose (mg/dL) 127 H (70-110) mg/dL Calcium (8.4-10.2) mg/dL Total Bilirubin (0.2-1.3) mg/dL Conjugated Bilirubin (0.0-0.3) mg/dL Unconjugated Bilirubin (0.0-1.1) mg/dL Delta Bilirubin (0.0-0.2) mg/dL AST (17-59) U/L Alkaline Phosphatase (38-126) U/L Ammonia (<30) umol/L Albumin (3.5-5.0) g/dL Vitamin B12 (200.0-944.0) pg/mL Assessment and Plan Assessment: Acute liver failure hepatic encephalopathy Alcoholic liver cirrhosis, decompensated with mild ascites Alcohol use disorder Coagulopathy High ammonia Electrolyte abnormality with hyponatremia, hypokalemia and hypomagnesemia. Got accepted by [facility] pending bed availability Continue with D5 half-normal saline at 80 mL Continue with CIWA protocol thiamine GI team consulted appreciated, continue with comfort measures Monitor ammonia Continue with lactulose, lower dose to 30 g twice daily Continue with Aldactone and Lasix add metoprolol Continue with pain management Labs and medication were reviewed.. Continue same treatment. Continue with symptomatic treatment. Resume home medication. Monitor labs and vitals. DVT and GI prophylaxis. Further recommendations as per clinical course of the patient DVT prophylaxis:no Subcutaneous heparin, patient has coagulopathy GI Prophylaxis: Protonix Prognosis is guarded
--- NOTE | 2024-09-22 18:03 | P.PN ---
Subjective Progress Note Date: 09/22/24 34-year-old gentleman past medical history significant for alcohol induced liver cirrhosis who presented to the ER because of nausea and vomiting. Patient has been seen in the past with similar complaints. Patient stated he has been drinking excessively for the last few weeks, administering around 1 pint per day. Patient has been complaining of nausea and vomiting. Denies abdominal pain. There is no complaint of fever or chills. Patient denies any orthopnea or PND. There is no chest pain or shortness of breath. Because of the symptoms, patient presented to the ER Initial lab work done in the ER showed WBC 9.5, hemoglobin 7.6, platelet count 105, sodium 137, potassium 2.6, BUN 2, creatinine 0.60, lactate 5.2 bilirubin 18.2 AST 247, ALT 39, ammonia 61, protein 9, albumin 3.4 UA negative for any infection Urine drug screen positive for marijuana EKG done in the ER showed heart rate of 115, no ST segment elevation or depression seen, no T-wave inversions seen. Patient admitted to internal medicine service 09/21/2024 Patient seen and examined in room with family at bedside. Patient is resting comfortably in bed. He appears more alert. He still is requiring a sitter at the bedside. Vital signs are reviewed stable with temperature of 97.7, pulse 77, respiration 14 and blood pressure of 97/59 Blood work reveals WBC of 8.55, hemoglobin 11.2 hematocrit 31 platelet count 144,000 INR 3.2 sodium 131 potassium 4.0 BUN less than 2 creatinine 0.7 total bilirubin 26.8 AST 79 ALT 19 alkaline phosphatase 360 ammonia 85 - All of patient's and family's questions were answered at bedside; await bed availability at [facility] for transfer 09/22/2024 Patient is seen and evaluated in room at bedside; family is present in the room; patient is more awake and alert; no specific complaints reported Vital signs reveal temperature of 98.5, pulse 76, respirations 16 and blood pressure of 101/65, O2 saturation 94% on room air WBC of 9.5, hemoglobin of 11.1 and platelet count of 172, sodium 131, potassium 3.9, BUNs/creatinine of 3/0.76, total bilirubin remains elevated at 27.3, AST of 85, ALT of 19, alkaline phosphatase remains elevated at 330 -Patient has been accepted at [facility] for further evaluation and treatment of liver failure - Awaits bed availability Objective - Vital Signs Vital signs: Vital Signs Temp 98.5 F 09/22/24 08:00 Pulse 76 09/22/24 08:00 Resp 16 09/22/24 08:00 BP 101/65 09/22/24 08:00 Pulse Ox 94 L 09/22/24 08:00 FiO2 Intake & Output 09/21/24 09/22/24 09/22/24 18:59 06:59 18:59 Intake Total 540 300 Output Total 650 300 Balance -110 0 Weight 74.6 kg Intake: Oral 540 300 Output: Urine 650 300 Other: Voiding Method External Catheter External Catheter External Catheter # Bowel Movements 1 1 - Exam -GENERAL: The patient is alert and oriented x3, not in any acute distress. Well developed, well nourished. Generally weak -HEENT: Pupils are round and equally reacting to light. EOMI. No scleral icterus. No conjunctival pallor. Normocephalic, atraumatic. No pharyngeal erythema. No thyromegaly. Yellow Sclera CARDIOVASCULAR: S1 and S2 present. No murmurs, rubs, or gallops. PULMONARY: Chest is clear to auscultation, no wheezing , no crackles. -ABDOMEN: Soft, nontender, mildly distended, normoactive bowel sounds. No palpable organomegaly. MUSCULOSKELETAL: No joint swelling or deformity. EXTREMITIES: No cyanosis, clubbing, or pedal edema. NEUROLOGICAL: Gross neurological examination did not reveal any focal deficits. SKIN: No rashes. no petechiae. - Labs CBC & Chem 7: 09/22/24 11:34 09/22/24 11:34 Labs: Abnormal Lab Results - Last 24 Hours (Table) 09/21/24 09/21/24 Range/Units 16:20 20:23 POC Glucose (mg/dL) 128 H 131 H (70-110) mg/dL Assessment and Plan Assessment: Acute liver failure hepatic encephalopathy Alcoholic liver cirrhosis, decompensated with mild ascites Alcohol use disorder Coagulopathy High ammonia Electrolyte abnormality with hyponatremia, hypokalemia and hypomagnesemia. Got accepted by [facility] pending bed availability Continue with D5 half-normal saline at 80 mL Continue with CIWA protocol thiamine GI team consulted appreciated, continue with comfort measures Monitor ammonia Continue with lactulose, lower dose to 30 g twice daily Continue with Aldactone and Lasix add metoprolol Continue with pain management Labs and medication were reviewed.. Continue same treatment. Continue with symptomatic treatment. Resume home medication. Monitor labs and vitals. DVT and GI prophylaxis. Further recommendations as per clinical course of the patient DVT prophylaxis:no Subcutaneous heparin, patient has coagulopathy GI Prophylaxis: Protonix Prognosis is guarded
[2024-09-22 19:48] VITALS: RESP 17
[2024-09-22 20:18] LABS: Glucose,Whole Blood 107 mg/dL (70-110)
[2024-09-22 23:44] VITALS: BP 97/51; PULSE 95; TEMP 98.6
== END 2024-09-23 02:30 | disposition short-term general hospital (02) | DRG 280 ==
LOC: EC 16:15 → 3SCARD 19:14
PROVIDERS: ADMIT Hospitalist; ATTEND Hospitalist
DX: K70.40 Alcoholic hepatic failure without coma (principal); K70.31 Alcoholic cirrhosis of liver with ascites; E87.6 Hypokalemia; K76.82 Hepatic encephalopathy; E87.1 Hypo-osmolality and hyponatremia; D69.6 Thrombocytopenia, unspecified; E83.42 Hypomagnesemia; E87.20 Acidosis, unspecified; F17.210 Nicotine dependence, cigarettes, uncomplicated; F10.129 Alcohol abuse with intoxication, unspecified; E11.9 Type 2 diabetes mellitus without complications; Y90.8 Blood alcohol level of 240 mg/100 ml or more; D64.9 Anemia, unspecified; F10.139 Alcohol abuse with withdrawal, unspecified; Z71.51 Drug abuse counseling and surveillance of drug abuser; D68.9 Coagulation defect, unspecified; I10 Essential (primary) hypertension; K70.11 Alcoholic hepatitis with ascites; Z79.899 Other long term (current) drug therapy; Z79.84 Long term (current) use of oral hypoglycemic drugs
CPT/HCPCS: 36415; 76705; 80048; 80053; 80076; 80306; 80320; 81003; 82140; 82533; 82607; 82746; 83605; 83690; 83735; 84100; 84132; 84145; 84443; 84484; 85025; 85027; 85610; 85730; 93005; 96361; 96365; 96366; 96368; 96375; 96376; 99291

== ENCOUNTER 2024-10-04 01:16 | Emergency (ER) | payer OTHER ==
--- NOTE | 2024-10-04 01:43 | ED ---
General Adult HPI - General Chief complaint: Fall Stated complaint: Fall Time Seen by Provider: 10/04/24 01:25 Source: patient, EMS Mode of arrival: EMS - History of Present Illness Initial comments: Patient is a 34-year-old gentleman history of alcoholism, alcoholic liver cirrhosis presenting today for a fall. States that he drink 3 double shots of vodka and subsequently tripped down 2 stairs falling on his right side. He states he did hit his head but did not lose consciousness. Denies any head or neck pain, headache, changes in vision dizziness or lightheadedness. States he is presenting for right lower rib pain, right sided abdominal pain and bilateral hip pain. Per EMS report patient was able to ambulate out to the stretcher that were patient states he was unable to secondary to pain. Patient denies any difficulty breathing, nausea or vomiting. Denies new numbness or weakness in any of his extremities. - Related Data Home Medications Medication Instructions Recorded Confirmed Folic Acid 1 mg PO DAILY 02/20/24 10/04/24 Ferrous Sulfate [Iron (65 MG 325 mg PO DAILY 05/11/24 10/04/24 Elemental)] Multivitamins, Thera [Multivitamin 1 tab PO DAILY 05/20/24 10/04/24 (formulary)] Furosemide [Lasix] 40 mg PO DAILY 06/25/24 10/04/24 Lactulose 10 gm PO DAILY 10/04/24 10/04/24 Magnesium Oxide [Mag-Ox] 400 mg PO DAILY 10/04/24 10/04/24 Vitamin B Complex 1 cap PO DAILY 10/04/24 10/04/24 Previous Rx's Medication Instructions Recorded Pantoprazole [Protonix] 40 mg PO DAILY #30 tab 05/14/24 Spironolactone [Aldactone] 50 mg PO DAILY #30 tab 06/29/24 Allergies Allergy/AdvReac Type Severity Reaction Status Date / Time No Known Allergies Allergy Verified 10/04/24 13:43 Review of Systems ROS Statement: Those systems with pertinent positive or pertinent negative responses have been documented in the HPI. ROS Other: All systems not noted in ROS Statement are negative. Past Medical History Past Medical History: Diabetes Mellitus, Hypertension, Liver Disease Additional Past Medical History / Comment(s): Nephrolithiasis, ETOH abuse with past withdrawal tremors, past alcoholic hepatitis/acute severe kidney injury/hyperphosphatemia/acute metabolic encephalopathy from renal failure. Hx. of diabetes, no longer on insulin.(30lb weight loss). Liver Cirrhosis/Ascites. low K level, high ammonia History of Any Multi-Drug Resistant Organisms: None Reported Past Surgical History: Cholecystectomy, Tonsillectomy Additional Past Surgical History / Comment(s): Paracentesis x2, Past Anesthesia/Blood Transfusion Reactions: No Reported Reaction Past Psychological History: No Psychological Hx Reported Smoking Status: Current every day smoker, Vaper Past Alcohol Use History: Abuse, Daily, Heavy Past Drug Use History: Marijuana - Past Family History Father Family Medical History: Myocardial Infarction (SC) Mother Family Medical History: Hypertension Additional Family Medical History / Comment(s): heart stent General Exam - General Exam Comments Initial Comments: PE: CONSTITUTIONAL: No apparent distress, chronically ill-appearing, nontoxic SKIN: Warm, dry, severely jaundiced, there is petechiae across back and chest EYES: Pupils are equally round, extraocular movements intact without nystagmus, significant scleral icterus HENT: Normocephalic, atraumatic, moist mucus membranes, oropharynx clear without exudates NECK: , Full range of motion, normal appearance,There is no midline cervical neck tenderness or step-offs. The patient denies any numbess, tingling, or weakness of the extremities when moving neck through full ROM. The patient is able to range their neck completely without midline cervical pain, numbness, tingling or weakness. PULMONARY: Clear to auscultation without wheezes, rhonchi, or rales, normal excursion, no accessory muscle use and no stridor, tenderness palpation of the right posterior ribs CARDIOVASCULAR: Regular rate, rhythm, normal S1 and S2. No appreciated murmurs, rubs or gallops. Strong radial pulses with intact distal perfusion. No lower extremity edema GASTROINTESTINAL: Soft, active bowel sounds throughout, tenderness palpation in the right upper quadrant, hepatomegaly, distended but soft, no palpable masses rebound or guarding GENITOURINARY: exam was performed with Remy ALEMAN at bedside, shows no blood at the urethral meatus or signs of injury MUSCULOSKELETAL: Extremities have no gross deformity, no edema, redness, or swelling. No calf swelling, endorses tenderness palpation of the hips bilaterally in the left inguinal region, no midline spinal tenderness to pa lpation, patient is able to range his lower extremities through full range of motion with 5 out of 5 strength bilaterally, no external signs of injury to his upper or lower extremities NEUROLOGIC:_a/o x 3, GCS 15, normal mentation and speech. Moves all extremities x 4 without motor or sensory deficit PSYCHIATRIC:_normal mood and affect, thought process is clear and linear Course Vital Signs 10/04/24 10/04/24 10/04/24 01:18 04:15 05:31 Temperature 97.8 F Pulse Rate 103 H 92 91 Respiratory 18 18 18 Rate Blood Pressure 122/73 96/55 111/66 O2 Sat by Pulse 100 98 98 Oximetry 10/04/24 10/04/24 10/04/24 07:15 08:21 08:55 Temperature 98.2 F Pulse Rate 89 104 H 95 Respiratory 18 18 18 Rate Blood Pressure 113/53 106/55 116/76 O2 Sat by Pulse 98 95 97 Oximetry 10/04/24 10/04/24 10/04/24 10:07 11:12 12:55 Temperature Pulse Rate 86 81 82 Respiratory 18 18 18 Rate Blood Pressure 105/57 92/49 114/66 O2 Sat by Pulse 94 L 98 97 Oximetry 10/04/24 10/04/24 10/04/24 14:53 16:07 17:00 Temperature Pulse Rate 85 86 89 Respiratory 18 18 18 Rate Blood Pressure 96/52 91/48 91/78 O2 Sat by Pulse 94 L 94 L 97 Oximetry 10/04/24 10/04/24 10/04/24 18:35 19:26 21:00 Temperature 98.1 F 98.5 F 98.6 F Pulse Rate 87 85 82 Respiratory 18 16 18 Rate Blood Pressure 111/64 110/55 97/50 O2 Sat by Pulse 97 96 97 Oximetry 10/04/24 10/04/24 10/05/24 22:00 23:00 00:00 Temperature 98.3 F 98.0 F Pulse Rate 88 77 80 Respiratory 16 15 18 Rate Blood Pressure 111/53 105/48 96/49 O2 Sat by Pulse 97 95 98 Oximetry 10/05/24 10/05/24 10/05/24 01:00 07:00 10:38 Temperature 97.8 F 98.1 F Pulse Rate 81 94 92 Respiratory 15 16 18 Rate Blood Pressure 103/48 109/57 103/49 O2 Sat by Pulse 96 96 97 Oximetry 10/05/24 10/05/2410/05/25 14:52 19:40 23:27 Temperature 98.8 F 100.4 F H 98.7 F Pulse Rate 98 98 102 H Respiratory 16 18 18 Rate Blood Pressure 114/65 110/52 124/62 O2 Sat by Pulse 95 97 98 Oximetry 10/06/24 10/06/24 10/06/24 03:16 06:17 09:12 Temperature 98.0 F Pulse Rate 76 84 89 Respiratory 18 18 18 Rate Blood Pressure 103/43 109/51 104/45 O2 Sat by Pulse 95 97 94 L Oximetry 10/06/24 11:35 Temperature 98.1 F Pulse Rate 90 Respiratory 18 Rate Blood Pressure 107/68 O2 Sat by Pulse 95 Oximetry Medical Decision Making - Medical Decision Making Was pt. sent in by a medical professional or institution (, PA, SAUSAGE WRAPPER, urgent care, hospital, or custodial...) When possible be specific @ -No Did you speak to anyone other than the patient for history (EMS, parent, family, police, friend...)? What history was obtained from this source @ -No Did you review nursing and triage notes (agree or disagree)? Why? @ -I reviewed and agree with nursing and triage notes Were old charts reviewed (outside hosp., previous admission, EMS record, old EKG, old radiological studies, urgent care reports/EKG's, custodial records)? Report findings @ -Medical records reviewed patient had an abdominal ultrasound performed on did not show hepatomegaly though showed small amount of ascites and persistent hepatocellular disease Differential Diagnosis (chest pain, altered mental status, abdominal pain women, abdominal pain men, vaginal bleeding, weakness, fever, dyspnea, syncope, headache, dizziness, GI bleed, back pain, seizure, CVA, palpatations, mental health, musculoskeletal)? @Differential Musculoskeletal Muscular strain, contusion, ligament sprain, fracture, arthritis, septic arthritis, bursitis, cellulitis, muscle spasm, nerve compression, DVT, arterial occlusion, herpes zoster, electrolyte abnormality, tumor.... This is not meant to be in all inclusive list EKG interpreted by me (3pts min.). @ -As above X-rays interpreted by me (1pt min.). @ -None done CT interpreted by me (1pt min.). I personally viewed CT scan I see no evidence of fractures or traumatic injury, agree with radiologist interpretation the radiologist does note concerns for enteritis versus SBP U/S interpreted by me (1pt. min.). @ -None done What testing was considered but not performed or refused? (CT, X-rays, U/S, labs)? Why? CT brain and C spine were considered however using [place] CT Cspine rule, pt is low risk and CT cspine not indicated, [place] head CT rule negative as well What meds were considered but not given or refused? Why? @ -None Did you discuss the management of the patient with other professionals (professionals i.e. Dr., PA, SAUSAGE WRAPPER, lab, RT, psych nurse, social media specialist, assistant professor of biology, teacher, commercial loan officer, pillowcase cleaner)? Give summary @Case discussed with Dr. Beckett, [facility], who accepted pt for transfer Was smoking cessation discussed for >3mins.? @ -No Was critical care preformed (if so, how long)? yes, 35 minutes Were there social determinants of health that impacted care today? How? (Homelessness, low income, unemployed, alcoholism, drug addiction, transportation, low edu. Level, literacy, decrease access to med. care, skilled nursing, rehab)? @Alcoholism Was there de-escalation of care discussed even if they declined (Discuss DNR or withdrawal of care, Hospice)? @ -No What co-morbidities impacted this encounter? (DM, HTN, Smoking, COPD, CAD, Cancer, CVA, ARF, Chemo, Hep., AIDS, mental health diagnosis, sleep apnea, morbid obesity)? @Liver cirrhosis Was patient admitted / discharged? Hospital course, mention meds given and route, prescriptions, significant lab abnormalities, going to OR and other pertinent info. @ -Transfer to [facility]- Patient is a 34-year-old male past medical history of liver cirrhosis secondary to alcoholism, presenting today after drinking 3 "double shots" of vodka and falling down 2 steps. Presents for right rib pain right abdominal pain and bilateral hip pain. Patient received tramadol for pain control, plan for CT chest abdomen pelvis without contrast as patient does have history of kidney disease, to assess for signs of fracture or blunt abdominal injury. Plain films of hips will be obtained in addition to this. CT was significant for concerns for SBP. No traumatic injuries noted. No signs of fracture to the hips or pelvis. Plain films were canceled since hips and pelvis were adequately visualized in CT. Given patient's history he will be given IV Rocephin, basic labs will be obtained. During patient's most recent admission he required transfer to [facility] due to liver failure. I anticipate he will need to be transferred again as he continues to appear extremely j aundiced and will require GI capabilities beyond our capabilities here. I updated pt to findings and plan of care, he is agreeable with transfer. Labs are significant for white blood count of 18.7, when he was here previously was not elevated, hemoglobin of 9.5, on 09/22/2024 was 11.1, platelets 179 4+ bilirubin and urine. Potassium 3.1. Oral replacement ordered. Case discussed with Dr. Beckett, Was accepted for transfer to [facility] however he is pending bed placement. Patient may board in the ER for an extended period of time so home meds, CIWA protocol ordered, internal medicine consulted. Undiagnosed new problem with uncertain prognosis? @ -No Drug Therapy requiring intensive monitoring for toxicity (Heparin, Nitro, Insulin, Cardizem)? @ -No Were any procedures done? @ -No Diagnosis/symptom? @SBP, fall, alcohol intoxication, Acute on chronic liver failure, alcoholic hepatitis Acute, or Chronic, or Acute on Chronic? @ -Acute, acute on chronic Uncomplicated (without systemic symptoms) or Complicated (systemic symptoms)? @Complicated Side effects of treatment? @ -No Exacerbation, Progression, or Severe Exacerbation? @Progression of liver failure Poses a threat to life or bodily function? How? (Chest pain, USA, SC, pneumonia, PE, COPD, DKA, ARF, appy, cholecystitis, CVA, Diverticulitis, Homicidal, Suicidal, threat to staff... and all critical care pts) @Yes, if left untreated could progress to septic shock and - Lab Data Result diagrams: 10/06/24 06:16 10/06/24 06:16 Lab Results 10/04/24 10/04/24 10/04/24 Range/Units 02:30 03:56 03:56 WBC 18.70 H (4.50-10.00) 10*3/uL RBC 2.66 L (4.40-5.60) 10*6/uL Hgb 9.5 L D (13.0-17.0) g/dL Hct 26.8 L (39.6-50.0) % MCV 100.8 H (80.0-97.0) fL MCH 35.7 H (27.0-32.0) pg MCHC 35.4 (32.0-37.0) g/dL Plt Count 179 (140-440) 10*3/uL MPV 11.1 (9.5-12.2) fL Immature Gran % (Auto) 3.1 % Neutrophils % 76.4 % Lymphocytes % 9.4 % Monocytes % 9.4 % Eosinophils % 1.5 % Basophils % 0.2 % Immature Gran # 0.58 H (0.00-0.04) 10*3/uL Neutrophils # 14.28 H (1.80-7.70) 10*3/uL Lymphocytes # 1.76 (0.90-5.00) 10*3/uL Monocytes # 1.76 H (0.20-1.00) 10*3/uL Eosinophils # 0.28 (0.04-0.35) 10*3/uL Basophils # 0.04 (0.00-0.10) 10*3/uL Immature Plt Fraction (1.1-6.1) % PT (10.0-12.5) sec INR (<1.2) APTT (22.0-30.0) sec Sodium 136 L (137-145) mmol/L Potassium 3.1 L (3.5-5.1) mmol/L Chloride 106 (98-107) mmol/L Carbon Dioxide 17 L (22-30) mmol/L Anion Gap 13 mmol/L BUN 7 L (9-20) mg/dL Creatinine 0.89 (0.66-1.25) mg/dL Est GFR (CKD-EPI)AfAm >90 (>60 ml/min/1.73 sqM) Est GFR (CKD-EPI)NonAf >90 (>60 ml/min/1.73 sqM) Glucose 95 (74-99) mg/dL Calcium 7.7 L (8.4-10.2) mg/dL Phosphorus (2.5-4.5) mg/dL Magnesium (1.6-2.3) mg/dL Total Bilirubin 27.7 H* (0.2-1.3) mg/dL AST 102 H (17-59) U/L ALT 22 (4-49) U/L Alkaline Phosphatase 263 H (38-126) U/L C-Reactive Protein 5.1 H (<1.0) mg/dL Total Protein 7.0 (6.3-8.2) g/dL Albumin 2.5 L (3.5-5.0) g/dL Urine Color Dark Yellow Urine Appearance Clear (Clear) Urine pH 6.5 (5.0-8.0) Ur Specific Cunningham 1.009 (1.001-1.035) Urine Protein Negative (Negative) Urine Glucose (UA) Negative (Negative) Urine Ketones Negative (Negative) Urine Blood Negative (Negative) Urine Nitrite Negative (Negative) Urine Bilirubin 4+ H (Negative) Urine Urobilinogen <2.0 (<2.0) mg/dL Ur Leukocyte Esterase Negative (Negative) Serum Alcohol mg/dL 10/04/24 10/04/24 10/05/24 Range/Units 05:06 05:26 06:47 WBC (4.50-10.00) 10*3/uL RBC (4.40-5.60) 10*6/uL Hgb (13.0-17.0) g/dL Hct (39.6-50.0) % MCV (80.0-97.0) fL MCH (27.0-32.0) pg MCHC (32.0-37.0) g/dL Plt Count (140-440) 10*3/uL MPV (9.5-12.2) fL Immature Gran % (Auto) % Neutrophils % % Lymphocytes % % Monocytes % % Eosinophils % % Basophils % % Immature Gran # (0.00-0.04) 10*3/uL Neutrophils # (1.80-7.70) 10*3/uL Lymphocytes # (0.90-5.00) 10*3/uL Monocytes # (0.20-1.00) 10*3/uL Eosinophils # (0.04-0.35) 10*3/uL Basophils # (0.00-0.10) 10*3/uL Immature Plt Fraction (1.1-6.1) % PT 30.2 H 28.6 H (10.0-12.5) sec INR 3.0 H 2.9 H (<1.2) APTT 48.4 H (22.0-30.0) sec Sodium (137-145) mmol/L Potassium (3.5-5.1) mmol/L Chloride (98-107) mmol/L Carbon Dioxide (22-30) mmol/L Anion Gap mmol/L BUN (9-20) mg/dL Creatinine (0.66-1.25) mg/dL Est GFR (CKD-EPI)AfAm (>60 ml/min/1.73 sqM) Est GFR (CKD-EPI)NonAf (>60 ml/min/1.73 sqM) Glucose (74-99) mg/dL Calcium (8.4-10.2) mg/dL Phosphorus 3.0 (2.5-4.5) mg/dL Magnesium 2.0 (1.6-2.3) mg/dL Total Bilirubin (0.2-1.3) mg/dL AST (17-59) U/L ALT (4-49) U/L Alkaline Phosphatase (38-126) U/L C-Reactive Protein (<1.0) mg/dL Total Protein (6.3-8.2) g/dL Albumin (3.5-5.0) g/dL Urine Color Urine Appearance (Clear) Urine pH (5.0-8.0) Ur Specific Cunningham (1.001-1.035) Urine Protein (Negative) Urine Glucose (UA) (Negative) Urine Ketones (Negative) Urine Blood (Negative) Urine Nitrite (Negative) Urine Bilirubin (Negative) Urine Urobilinogen (<2.0) mg/dL Ur Leukocyte Esterase (Negative) Serum Alcohol 126 mg/dL 10/06/24 10/06/24 Range/Units 06:16 06:16 WBC 16.85 H (4.50-10.00) 10*3/uL RBC 2.74 L (4.40-5.60) 10*6/uL Hgb 9.8 L (13.0-17.0) g/dL Hct 27.6 L (39.6-50.0) % MCV 100.7 H (80.0-97.0) fL MCH 35.8 H (27.0-32.0) pg MCHC 35.5 (32.0-37.0) g/dL Plt Count 126 L (140-440) 10*3/uL MPV 11.4 (9.5-12.2) fL Immature Gran % (Auto) 1.2 % Neutrophils % 80.5 % Lymphocytes % 9.3 % Monocytes % 6.1 % Eosinophils % 2.1 % Basophils % 0.8 % Immature Gran # 0.21 H (0.00-0.04) 10*3/uL Neutrophils # 13.56 H (1.80-7.70) 10*3/uL Lymphocytes # 1.57 (0.90-5.00) 10*3/uL Monocytes # 1.02 H (0.20-1.00) 10*3/uL Eosinophils # 0.35 (0.04-0.35) 10*3/uL Basophils # 0.14 H (0.00-0.10) 10*3/uL Immature Plt Fraction 4.5 (1.1-6.1) % PT (10.0-12.5) sec INR (<1.2) APTT (22.0-30.0) sec Sodium 127 L (137-145) mmol/L Potassium 2.8 L (3.5-5.1) mmol/L Chloride 94 L (98-107) mmol/L Carbon Dioxide 22 (22-30) mmol/L Anion Gap 11 mmol/L BUN 12 (9-20) mg/dL Creatinine 1.36 H (0.66-1.25) mg/dL Est GFR (CKD-EPI)AfAm 79 (>60 ml/min/1.73 sqM) Est GFR (CKD-EPI)NonAf 68 (>60 ml/min/1.73 sqM) Glucose 103 H (74-99) mg/dL Calcium 7.7 L (8.4-10.2) mg/dL Phosphorus (2.5-4.5) mg/dL Magnesium 1.7 (1.6-2.3) mg/dL Total Bilirubin 27.5 H* (0.2-1.3) mg/dL AST 82 H (17-59) U/L ALT 19 (4-49) U/L Alkaline Phosphatase 275 H (38-126) U/L C-Reactive Protein (<1.0) mg/dL Total Protein 6.2 L (6.3-8.2) g/dL Albumin 2.2 L (3.5-5.0) g/dL Urine Color Urine Appearance (Clear) Urine pH (5.0-8.0) Ur Specific Cunningham (1.001-1.035) Urine Protein (Negative) Urine Glucose (UA) (Negative) Urine Ketones (Negative) Urine Blood (Negative) Urine Nitrite (Negative) Urine Bilirubin (Negative) Urine Urobilinogen (<2.0) mg/dL Ur Leukocyte Esterase (Negative) Serum Alcohol mg/dL Disposition Clinical Impression: Fall, Alcohol intoxication, Spontaneous bacterial peritonitis, Alcoholic cirrhosis of liver Disposition: OTHER INSTITUTION NOT DEFINED Condition: Stable Referrals: Gabe Flynn DO [Primary Care Provider] - 1-2 days - Out of Hospital Transfer - Req. Specs Out of Hospital Transfer - Requested Specifics: Other Emergency Center ([facility])
[2024-10-04] MEDS: traMADol 50 MG TAB PO STA (02:16)
--- NOTE | 2024-10-04 02:34 | CT ---
EXAM: CT Chest Without Intravenous Contrast CLINICAL HISTORY: ITS.REASON CT Reason: fall right sided abdominal TTP, hx cirrhotic liver TECHNIQUE: Axial computed tomography images of the chest without intravenous contrast. CTDI is 7.6 mGy and DLP is 628.4 mGy-cm. This CT exam was performed using one or more of the following dose reduction techniques: automated exposure control, adjustment of the mA and/or kV according to patient size, and/or use of iterative reconstruction technique. COMPARISON: No relevant prior studies available. FINDINGS: Lungs: Unremarkable. No mass. No consolidation. Pleural space: Unremarkable. No pneumothorax. No significant effusion. Heart: Unremarkable. No cardiomegaly. No significant pericardial effusion. No significant coronary artery calcifications. Bones/joints: Old, healed bilateral rib fractures. No dislocation. Soft tissues: Unremarkable. Vasculature: Unremarkable. No thoracic aortic aneurysm. Lymph nodes: Unremarkable. No enlarged lymph nodes. IMPRESSION: No acute findings in the chest. EXAM: CT Abdomen and Pelvis Without Intravenous Contrast CLINICAL HISTORY: ITS.REASON CT Reason: fall right sided abdominal TTP, hx cirrhotic liver TECHNIQUE: Axial computed tomography images of the abdomen and pelvis without intravenous contrast. CTDI is 7.6 mGy and DLP is 628.4 mGy-cm. This CT exam was performed using one or more of the following dose reduction techniques: automated exposure control, adjustment of the mA and/or kV according to patient size, and/or use of iterative reconstruction technique. COMPARISON: No relevant prior studies available. FINDINGS: Lung bases: Unremarkable. No mass. No consolidation. ABDOMEN: Liver: Mild hepatic cirrhotic morphology. Splenomegaly. Ascites. Gallbladder and bile ducts: Cholecystectomy. No ductal dilation. Pancreas: Unremarkable. No ductal dilation. Spleen: See above. Adrenals: Unremarkable. No mass. Kidneys and ureters: Unremarkable. No obstructing stones. No hydronephrosis. Stomach and bowel: Wall thickening of small bowel, correlate for enteritis versus spontaneous bacterial peritonitis. No obstruction. PELVIS: Appendix: No findings to suggest acute appendicitis. Bladder: Unremarkable. No stones. Reproductive: Unremarkable as visualized. ABDOMEN and PELVIS: Intraperitoneal space: See above. Bones/joints: No acute fracture. Cement kyphoplasty at L2. Soft tissues: Unremarkable. Vasculature: Unremarkable. No abdominal aortic aneurysm. Lymph nodes: Unremarkable. No enlarged lymph nodes. IMPRESSION: 1. Wall thickening of small bowel, correlate for enteritis versus spontaneous bacterial peritonitis. 2. Mild hepatic cirrhotic morphology. Splenomegaly. Ascites. 3. Cement kyphoplasty at L2.
[2024-10-04 03:14] LABS: Appearance,Urine Clear (Clear); Bilirubin,Urine 4+ (Negative); Blood,Urine Negative (Negative); Color,Urine Dark Yellow; Glucose,Urine (UA) Negative (Negative); Ketones,Urine Negative (Negative); Leukocyte Esterase,Urine Negative (Negative); Nitrite,Urine Negative (Negative); PH, Urine 6.5 (5.0-8.0); Protein,Urine Negative (Negative); Specific Gravity,Urine 1.009 (1.001-1.035); Urobilinogen,Urine <2.0 mg/dL (<2.0)
[2024-10-04 04:06] LABS: Basophils # (A) 0.04 10*3/uL (0.00-0.10); Basophils % (A) 0.2 %; Eosinophils # (A) 0.28 10*3/uL (0.04-0.35); Eosinophils % (A) 1.5 %; HCT 26.8 % (39.6-50.0); Lymphocytes # (A) 1.76 10*3/uL (0.90-5.00); Lymphocytes % (A) 9.4 %; MCH 35.7 pg (27.0-32.0); MCHC 35.4 g/dL (32.0-37.0); MCV 100.8 fL (80.0-97.0); Mean Platelet Volume 11.1 fL (9.5-12.2); Monocytes # (A) 1.76 10*3/uL (0.20-1.00); Monocytes % (A) 9.4 %; Neutrophils # (A) 14.28 10*3/uL (1.80-7.70); Neutrophils % (A) 76.4 %; Platelet Count 179 10*3/uL (140-440); RBC 2.66 10*6/uL (4.40-5.60); RDW 20.1 % (11.5-14.5)
[2024-10-04] MEDS: CYCLOBENZAPRINE 10 MG TAB PO STA (04:11)
[2024-10-04] MEDS: LIDOCAINE 4% PATCH TOPICAL ONE (04:11)
[2024-10-04 04:15] LABS: HGB 9.5 g/dL (13.0-17.0)
[2024-10-04 04:22] LABS: ALT 22 U/L (4-49); AST 102 U/L (17-59); African American GFR (CKD) >90 (>60 ml/min/1.73 sqM); Albumin 2.5 g/dL (3.5-5.0); Alkaline Phosphatase 263 U/L (38-126); Anion Gap 13 mmol/L; Blood Urea Nitrogen 7 mg/dL (9-20); C Reactive Protein 5.1 mg/dL (<1.0); Calcium 7.7 mg/dL (8.4-10.2); Carbon Dioxide 17 mmol/L (22-30); Chloride 106 mmol/L (98-107); Glucose 95 mg/dL (74-99); Non-African American GFR(CKD) >90 (>60 ml/min/1.73 sqM); Potassium 3.1 mmol/L (3.5-5.1); Sodium 136 mmol/L (137-145)
[2024-10-04 04:55] LABS: Total Bilirubin 27.7 mg/dL (0.2-1.3)
[2024-10-04] MEDS ORDERED: LORazepam 2 MG/ML INJ IV PRN (05:11)
[2024-10-04] MEDS ORDERED: LORazepam 1 MG TAB PO PRN ×4 (05:11)
[2024-10-04] MEDS: POTASSIUM BICARBONATE/CIT AC 20 MEQ TABLET.EFF PO ONE (05:29)
[2024-10-04 06:08] LABS: Partial Thromboplastin Time 48.4 sec (22.0-30.0); Prothrombin Time 30.2 sec (10.0-12.5)
[2024-10-04] MEDS: DEXTROSE 5%-0.45% NACL 1,000 ML IV SCH (06:52)
[2024-10-04] MEDS: FERROUS SULFATE 325 MG TAB PO SCH (08:26)
[2024-10-04] MEDS: MULTIVITAMINS, THERA 1 EACH TAB PO SCH (08:26)
[2024-10-04] MEDS: FOLIC ACID 1 MG TAB PO SCH (08:26)
[2024-10-04] MEDS: DAPAGLIFLOZIN PROPANEDIOL 10 MG TABLET PO SCH (08:26)
[2024-10-04] MEDS: FUROSEMIDE 40 MG TAB PO SCH (08:26)
[2024-10-04] MEDS: METOPROLOL TARTRATE 25 MG TAB PO SCH (08:26)
[2024-10-04] MEDS: SPIRONOLACTONE 25 MG TAB PO SCH (08:27)
[2024-10-04] MEDS: PANTOPRAZOLE 40 MG TABLET PO SCH (08:27)
[2024-10-04] MEDS: HYDROmorphone 0.5 MG/0.5 ML SYRINGE IVP PRN (09:03)
[2024-10-04] MEDS: NICOTINE 21MG/24HR PATCH TRANSDERM STA (13:03)
--- NOTE | 2024-10-04 13:45 | P.HPIM ---
History of Present Illness 34-year-old male came in after a fall and dyspnea complaining of pain in the right side of the body. Patient had 3 episodes of workup after which patient fell patient continues to drink alcohol on daily basis. Patient does have advan jason cirrhosis with serum bilirubin of 27 and a very high MELD score patient does have significant ascites with umbilical hernia, does have caput medusa signs of cirrhosis. Patient was having pain from the fall in the abdomen and rib cage area but no obvious pain in the abdomen that is consistent with peritonitis. Patient has no any fever chills does have leukocytosis with 18,000 white blood cell count. Patient is a is not admitted to intervention service instead patient is being transferred to an outside hospital for spontaneous bacterial peritonitis. And cirrhosis REVIEW OF SYSTEMS: All other systems are negative except those mentioned in the HPI PHYSICAL EXAMINATION: GENERAL: The patient is alert and oriented x3, not in any acute distress. Well developed, well nourished. HEENT: Pupils are round and equally reacting to light. EOMI. scleral icterus and yellowish discoloration of entire body. No conjunctival pallor. Normocephalic, atraumatic. No pharyngeal erythema. No thyromegaly. CARDIOVASCULAR: S1 and S2 present. No murmurs, rubs, or gallops. PULMONARY: Chest is clear to auscultation, no wheezing or crackles. ABDOMEN: Distended ascites caput medusa umbilical hernia as mentioned above MUSCULOSKELETAL: No joint swelling or deformity. EXTREMITIES: No cyanosis, clubbing, or pedal edema. NEUROLOGICAL: Gross neurological examination did not reveal any focal deficits. SKIN: No rashes. Assessment and plan -Right-sided rib cage pain and musculoskeletal abdominal pain on the right side secondary to fall fall patient's symptoms are not consistent with peritonitis. - Leukocytosis secondary to fall I do not see any clear evidence of peritonitis at this time but patient will be started on Rocephin until we get a paracentesis. - Advanced alcoholic cirrhosis with ascites patient will need diagnostic and therapeutic paracentesis ultrasound-guided paracentesis was ordered. Patient is on oral Lasix and Aldactone which will be continued Alcohol withdrawal patient still drinking alcohol alcohol withdrawal precautions is appropriate at this time - Coagulopathy secondary to cirrhosis INR is 3 patient will be given IV vitamin K as he may undergo paracentesis. -Alcoholic hepatitis - Hypokalemia potassium will be replaced - Alcohol abuse and nicotine use: Counseling was provided Patient has diabetes mellitus history as well patient is on Farxiga which will be continued DVT prophylaxis: Patient is already auto anticoagulated with INR of 3 Past Medical History Past Medical History: Diabetes Mellitus, Hypertension, Liver Disease Additional Past Medical History / Comment(s): Nephrolithiasis, ETOH abuse with past withdrawal tremors, past alcoholic hepatitis/acute severe kidney inju ry/hyperphosphatemia/acute metabolic encephalopathy from renal failure. Hx. of diabetes, no longer on insulin.(30lb weight loss). Liver Cirrhosis/Ascites. low K level, high ammonia History of Any Multi-Drug Resistant Organisms: None Reported Past Surgical History: Cholecystectomy, Tonsillectomy Additional Past Surgical History / Comment(s): Paracentesis x2, Past Anesthesia/Blood Transfusion Reactions: No Reported Reaction Past Psychological History: No Psychological Hx Reported Smoking Status: Current every day smoker, Vaper Past Alcohol Use History: Abuse, Daily, Heavy Past Drug Use History: Marijuana - Past Family History Father Family Medical History: Myocardial Infarction ([place]) Mother Family Medical History: Hypertension Additional Family Medical History / Comment(s): heart stent Medications and Allergies Home Medications Medication Instructions Recorded Confirmed Type Thiamine [Vitamin B-1] 100 mg PO DAILY #30 tab 09/30/23 09/15/24 Rx Folic Acid 1 mg PO DAILY 02/20/24 09/15/24 History Dapagliflozin Propanediol [Farxiga] 10 mg PO DAILY 03/08/24 09/15/24 History Ferrous Sulfate [Iron (65 MG 325 mg PO DAILY 05/11/24 09/15/24 History Elemental)] Pantoprazole [Protonix] 40 mg PO DAILY #30 tab 05/14/24 09/15/24 Rx Multivitamins, Thera [Multivitamin 1 tab PO DAILY 05/20/24 09/15/24 History (formulary)] Furosemide [Lasix] 40 mg PO DAILY 06/25/24 09/15/24 History Metoprolol Tartrate [Lopressor] 25 mg PO DAILY 06/25/24 09/15/24 History Spironolactone [Aldactone] 50 mg PO DAILY #30 tab 06/29/24 09/15/24 Rx Allergies Allergy/AdvReac Type Severity Reaction Status Date / Time No Known Allergies Allergy Verified 10/04/24 13:43 Physical Exam Vitals: Vital Signs Temp Pulse Resp BP Pulse Ox 10/04/24 12:55 82 18 114/66 97 10/04/24 11:12 81 18 92/49 98 10/04/24 10:07 86 18 105/57 94 L 10/04/24 08:55 95 18 116/76 97 10/04/24 08:21 98.2 F 104 H 18 106/55 95 10/04/24 07:15 89 18 113/53 98 10/04/24 05:31 91 18 111/66 98 10/04/24 04:15 92 18 96/55 98 10/04/24 01:18 97.8 F 103 H 18 122/73 100 Intake and Output 10/03/24 10/04/24 10/04/24 22:59 06:59 14:59 Intake Total 950 Output Total 1400 Balance -450 Intake: Oral 950 Output: Urine 1400 Other: # Voids 1 Weight 72.575 kg Results CBC & Chem 7: 10/04/24 03:56 10/04/24 03:56 Labs: Abnormal Lab Results - Last 24 Hours (Table) 10/04/24 10/04/24 10/04/24 Range/Units 02:30 03:56 03:56 WBC 18.70 H (4.50-10.00) 10*3/uL RBC 2.66 L (4.40-5.60) 10*6/uL Hgb 9.5 L D (13.0-17.0) g/dL Hct 26.8 L (39.6-50.0) % MCV 100.8 H (80.0-97.0) fL MCH 35.7 H (27.0-32.0) pg Immature Gran # 0.58 H (0.00-0.04) 10*3/uL Neutrophils # 14.28 H (1.80-7.70) 10*3/uL Monocytes # 1.76 H (0.20-1.00) 10*3/uL PT (10.0-12.5) sec INR (<1.2) APTT (22.0-30.0) sec Sodium 136 L (137-145) mmol/L Potassium 3.1 L (3.5-5.1) mmol/L Carbon Dioxide 17 L (22-30) mmol/L BUN 7 L (9-20) mg/dL Calcium 7.7 L (8.4-10.2) mg/dL Total Bilirubin 27.7 H* (0.2-1.3) mg/dL AST 102 H (17-59) U/L Alkaline Phosphatase 263 H (38-126) U/L C-Reactive Protein 5.1 H (<1.0) mg/dL Albumin 2.5 L (3.5-5.0) g/dL Urine Bilirubin 4+ H (Negative) 10/04/24 Range/Units 05:06 WBC (4.50-10.00) 10*3/uL RBC (4.40-5.60) 10*6/uL Hgb (13.0-17.0) g/dL Hct (39.6-50.0) % MCV (80.0-97.0) fL MCH (27.0-32.0) pg Immature Gran # (0.00-0.04) 10*3/uL Neutrophils # (1.80-7.70) 10*3/uL Monocytes # (0.20-1.00) 10*3/uL PT 30.2 H (10.0-12.5) sec INR 3.0 H (<1.2) APTT 48.4 H (22.0-30.0) sec Sodium (137-145) mmol/L Potassium (3.5-5.1) mmol/L Carbon Dioxide (22-30) mmol/L BUN (9-20) mg/dL Calcium (8.4-10.2) mg/dL Total Bilirubin (0.2-1.3) mg/dL AST (17-59) U/L Alkaline Phosphatase (38-126) U/L C-Reactive Protein (<1.0) mg/dL Albumin (3.5-5.0) g/dL Urine Bilirubin (Negative)
[2024-10-04] MEDS: PHYTONADIONE 5 MG in SODIUM CHLORIDE 0.9% 50 ML IVPB STA (14:27)
[2024-10-04] MEDS: POTASSIUM CHLORIDE ER 20 MEQ TAB.ER PO STA (14:55)
[2024-10-05 07:48] LABS: INR 2.9 (<1.2); Prothrombin Time 28.6 sec (10.0-12.5)
[2024-10-05] MEDS: THIAMINE 100 MG TAB PO SCH (11:08)
[2024-10-05] MEDS: LORazepam 0.5 MG TAB PO PRN (14:48)
[2024-10-05] MEDS: NICOTINE 21MG/24HR PATCH TRANSDERM STA (14:48)
[2024-10-05] MEDS: ONDANSETRON 4 MG/2 ML VIAL IVP PRN (18:45)
[2024-10-05 19:44] VITALS: RESP 18
[2024-10-05] MEDS: IBUPROFEN 400 MG TAB PO PRN (21:11)
--- NOTE | 2024-10-06 00:58 | P.PN ---
Subjective Progress Note Date: 10/05/24 34-year-old male came in after a fall and dyspnea complaining of pain in the right side of the body. Patient had 3 episodes of workup after which patient fell patient continues to drink alcohol on daily basis. Patient does have advanced cirrhosis with serum bilirubin of 27 and a very high MELD score patient does have significant ascites with umbilical hernia, does have caput medusa signs of cirrhosis. Patient was having pain from the fall in the abdomen and rib cage area but no obvious pain in the abdomen that is consistent with peritonitis. Patient has no any fever chills does have leukocytosis with 18,000 white blood cell count. Patient is a is not admitted to intervention service instead patient is being transferred to an outside hospital for spontaneous bacterial peritonitis. And cirrhosis 10/05/2024 Patient is seen in follow-up in the ER continues to await a bed at [facility]. Patient was evaluated by GI recommending transfer for tertiary treatment and has been accepted although no bed available. There was discussion of possible paracentesis here although recommending further evaluation and lab analysis at [facility]. No bed available today and will continue to monitor and continue with supportive care. Review of systems: Constitutional: No reports of fatigue, fever, or chills Cardiovascular: No reports of chest pain or palpitations Respiratory: No reports of shortness of breath or cough GI: reports of nausea, no vomiting, or diarrhea, reports abdominal discomfort : No reports of dysuria or retention Neurovascular: No reports of weakness or numbness All medications have been reviewed All other systems are negative except those mentioned in the HPI PHYSICAL EXAMINATION: GENERAL: The patient is alert and oriented x3, not in any acute distress. Well developed, well nourished. HEENT: Pupils are round and equally reacting to light. EOMI. scleral icterus and yellowish discoloration of entire body. No conjunctival pallor. Normocephalic, atraumatic. No pharyngeal erythema. No thyromegaly. CARDIOVASCULAR: S1 and S2 present. No murmurs, rubs, or gallops. PULMONARY: Chest is clear to auscultation, no wheezing or crackles. ABDOMEN: Distended ascites caput medusa umbilical hernia as mentioned above MUSCULOSKELETAL: No joint swelling or deformity. EXTREMITIES: No cyanosis, clubbing, or pedal edema. NEUROLOGICAL: Gross neurological examination did not reveal any focal deficits. SKIN: No rashes. Assessment and plan: -Right-sided rib cage pain and musculoskeletal abdominal pain on the right side secondary to fall, patient's symptoms are not consistent with peritonitis. - Leukocytosis, possibly reactive likely secondary to fall. I do not see any clear evidence of peritonitis at this time but patient will be started on Rocephin empirically - Advanced alcoholic cirrhosis with ascites patient will need diagnostic and therapeutic paracentesis. Patient is on oral Lasix and Aldactone which will be continued -Alcohol withdrawal, continue CIWA protocol - Coagulopathy secondary to cirrhosis INR is 3, trending down -Alcoholic hepatitis - Hypokalemia improved after replacement -Continued alcohol abuse and nicotine use: Counseling was provided -diabetes mellitus, uncontrolled with hyperglycemia. History as well patient is on Farxiga which will be continued -DVT prophylaxis: Patient is already auto anticoagulated with INR of 3 - GI prophylaxis -Full code Plan: Patient is not currently admitted to the hospital and medicine was consulted for medical management from the ER as patient is currently awaiting a bed at [facility] in [place] for tertiary treatment per recommendations. Patient has been accepted at [facility] although pending a bed. [place] staff contacted transfer team and no bed available today For discussion of possible paracentesis here and not transferring initially, although is recommending transfer for tertiary treatment. Patient is agreeable to the transfer currently awaiting a bed Will follow-up on repeat labs, replace electrolytes per protocol Continue monitoring Accu-Cheks AC and at bedtime and adjust insulin accordingly The impression and plan of care has been dictated by Yuli Willingham, Nurse Practitioner as directed. Dr. Asim MD I have performed a history and examination and MDM of this patient, discussed the same with the dictator, and agree with the dictator's assessment and plan as written ,documented as a scribe. Based on total visit time, I have performed more than 50% of the visit. Objective - Vital Signs Vital signs: Vital Signs Temp 98.7 F 10/05/24 23:27 Pulse 102 H 10/05/24 23:27 Resp 18 10/05/24 23:27 BP 124/62 10/05/24 23:27 Pulse Ox 98 10/05/24 23:27 FiO2 Intake & Output 10/05/24 10/05/24 10/06/24 06:59 18:59 06:59 Output Total 700 Balance -700 Output: Urine 700 - Labs CBC & Chem 7: 10/04/24 03:56 10/04/24 03:56 Labs: Abnormal Lab Results - Last 24 Hours (Table) 10/05/24 Range/Units 06:47 PT 28.6 H (10.0-12.5) sec INR 2.9 H (<1.2) Microbiology - Last 24 Hours (Table) 10/04/24 03:56 Blood Culture - Preliminary Blood
[2024-10-06 06:57] LABS: Basophils # (A) 0.14 10*3/uL (0.00-0.10); Basophils % (A) 0.8 %; Eosinophils # (A) 0.35 10*3/uL (0.04-0.35); Eosinophils % (A) 2.1 %; HCT 27.6 % (39.6-50.0); HGB 9.8 g/dL (13.0-17.0); Immature Platelet Fraction 4.5 % (1.1-6.1); Lymphocytes # (A) 1.57 10*3/uL (0.90-5.00); Lymphocytes % (A) 9.3 %; MCH 35.8 pg (27.0-32.0); MCHC 35.5 g/dL (32.0-37.0); MCV 100.7 fL (80.0-97.0); Mean Platelet Volume 11.4 fL (9.5-12.2); Monocytes # (A) 1.02 10*3/uL (0.20-1.00); Monocytes % (A) 6.1 %; Neutrophils # (A) 13.56 10*3/uL (1.80-7.70); Neutrophils % (A) 80.5 %; Platelet Count 126 10*3/uL (140-440); RBC 2.74 10*6/uL (4.40-5.60); RDW 18.7 % (11.5-14.5); WBC 16.85 10*3/uL (4.50-10.00)
[2024-10-06 07:39] LABS: ALT 19 U/L (4-49); AST 82 U/L (17-59); African American GFR (CKD) 79 (>60 ml/min/1.73 sqM); Albumin 2.2 g/dL (3.5-5.0); Anion Gap 11 mmol/L; Blood Urea Nitrogen 12 mg/dL (9-20); Calcium 7.7 mg/dL (8.4-10.2); Carbon Dioxide 22 mmol/L (22-30); Chloride 94 mmol/L (98-107); Glucose 103 mg/dL (74-99); Magnesium 1.7 mg/dL (1.6-2.3); Non-African American GFR(CKD) 68 (>60 ml/min/1.73 sqM); Potassium 2.8 mmol/L (3.5-5.1); Sodium 127 mmol/L (137-145)
[2024-10-06 07:48] LABS: Alkaline Phosphatase 275 U/L (38-126); Total Bilirubin 27.5 mg/dL (0.2-1.3); Total Protein 6.2 g/dL (6.3-8.2)
[2024-10-06] MEDS: NICOTINE 21MG/24HR PATCH TRANSDERM STA (15:10)
[2024-10-06] MEDS ORDERED: Potassium Replacement Protocol 1 EACH MISC MISCELLANE PRN ×2 (17:29→17:46)
[2024-10-06] MEDS ORDERED: Magnesium Replacement Protocol 1 EACH MISC MISCELLANE PRN (17:30)
[2024-10-06] MEDS: POTASSIUM CHLORIDE ER 20 MEQ TAB.ER PO SCH (18:02)
[2024-10-06 18:46] LABS: Glucose,Whole Blood 181 mg/dL (70-110)
[2024-10-06] MEDS: MAGNESIUM SULFATE-D5W PMX 1 GM in DEXTROSE/WATER 1 100ML.BAG IVPB ONE (18:46)
[2024-10-07 00:50] VITALS: PULSE 103
[2024-10-07 01:57] VITALS: BP 116/78; TEMP 98.6
== END 2024-10-07 02:01 | disposition other institution (70) ==
LOC: EC 01:16
DX: M25.551 Pain in right hip (principal); M25.552 Pain in left hip; K70.31 Alcoholic cirrhosis of liver with ascites; K70.11 Alcoholic hepatitis with ascites; K42.9 Umbilical hernia without obstruction or gangrene; D72.829 Elevated white blood cell count, unspecified; E87.6 Hypokalemia; E11.65 Type 2 diabetes mellitus with hyperglycemia; F10.129 Alcohol abuse with intoxication, unspecified; D68.4 Acquired coagulation factor deficiency; F17.290 Nicotine dependence, other tobacco product, uncomplicated; Z79.84 Long term (current) use of oral hypoglycemic drugs; W10.9XXA Fall (on) (from) unspecified stairs and steps, initial encounter; Y90.9 Presence of alcohol in blood, level not specified
CPT/HCPCS: 99291; 96365; 96366 ×2; 96367 ×2; 96375 ×2; 96376 ×17; 36415 ×2; 80053; 83735; 84100; 85025; 85610 ×2; 85730; 86140; 81003; 87040; 71250; 74176; G0480; S4990 ×2; J3430; J2405; J0696; J1171 ×2; 80320; 84132